=== PATIENT | male | born 1940 | race Caucasian/White ===

== ENCOUNTER → 2016-07-21 | Outpatient (CLI) | payer MEDICARE ==
[2016-07-21 14:26] LABS: CH 30.9; HCT 33.6 % (39.0-53.0); HDW 2.47; HGB 10.4 gm/dL (13.0-17.5); MCH 30.2 pg (25.0-35.0); MCHC 31.1 g/dL (31.0-37.0); MCV 97.1 fL (80.0-100.0); Mean Platelet Volume 7.6; RBC 3.46 m/uL (4.30-5.90); RDW 14.3 % (11.5-15.5); WBC 7.1 k/uL (3.8-10.6)
[2016-07-21 14:35] LABS: Prothrombin Time 9.9 sec (9.0-12.0)
[2016-07-21 14:40] LABS: Calcium 9.2 mg/dL (8.4-10.2)
== END | disposition home or self-care (01) ==
LOC: LABWHC1 13:24
PROVIDERS: ATTEND Nurse Practitioner Acute Care
DX: Z01.812 Encounter for preprocedural laboratory examination (principal)
CPT/HCPCS: 36415; 80048; 85027; 85610

== ENCOUNTER 2016-11-05 13:59 | Observation (INO) | payer MEDICARE ==
[2016-11-05] MEDS ORDERED: ONDANSETRON 4 MG/2 ML VIAL IVP STA (15:45)
[2016-11-05] MEDS ORDERED: RX INFO: IV CONTRAST WAS GIVEN 1 EACH MISC MISCELLANE PRN (15:45)
[2016-11-05] MEDS ORDERED: SODIUM CHLORIDE 0.9% 1,000 ML IV ONE (15:45)
--- NOTE | 2016-11-05 15:48 | ED ---
General Adult HPI - General Chief complaint: Abdominal Pain Stated complaint: Weakness /Tired Time Seen by Provider: 11/05/16 15:35 Source: patient, family, RN notes reviewed Mode of arrival: wheelchair Limitations: no limitations - History of Present Illness Initial comments: 76-year-old male history of hypertension and diabetes presenting for abdominal pain and nausea. Patient states symptoms began about 4 days ago. He states he felt ill during the day initially with 4 episodes of vomiting at that time. He states over the past 3 days felt some intermittent nausea but no vomiting. He has had some persistent upper abdominal pain. He does state history of colitis many years ago. He denies any significant abdominal surgeries. He denies any change in bowel movements. He denies any fevers or chills. He denies any chest pain or shortness breath. He denies any urinary symptoms, dysuria, hematuria. He does state that symptoms were improved after taking Tylenol yesterday and today. - Related Data Home Medications Medication Instructions Recorded Confirmed Atenolol [Tenormin] 25 mg PO DAILY 08/04/14 11/05/16 Furosemide [Lasix] 80 mg PO DAILY 08/04/14 11/05/16 Insulin NPH Human Isophane 20 unit SQ W/BRKFST 08/04/14 11/05/16 [NovoLIN N] Insulin Regular, Human [NovoLIN R] See Protocol SQ BID 08/04/14 11/05/16 Levothyroxine Sodium [Synthroid] 100 mcg PO DAILY 08/04/14 11/05/16 Lisinopril [Prinivil] 10 mg PO DAILY 08/04/14 11/05/16 Potassium Chloride [Klor-Con 20] 20 meq PO DAILY 08/04/14 11/05/16 Ranitidine HCl 150 mg PO DAILY 08/04/14 11/05/16 glipiZIDE [Glucotrol XL] 5 mg PO DAILY 08/04/14 11/05/16 Albuterol Inhaler [Ventolin 1 - 2 puff INHALATION RT-Q4H PRN 11/05/16 11/05/16 Inhaler] Albuterol Nebulized [Ventolin 2.5 mg INHALATION RT-QID PRN 11/05/16 11/05/16 Nebulized] Insulin NPH Human Isophane 10 unit SQ W/SUPPER 11/05/16 11/05/16 [Humulin N] Ipratropium Nebulized [Atrovent 0.5 mg INHALATION RT-QID PRN 11/05/16 11/05/16 Nebulized] Verapamil HCl [Verapamil ER] 240 mg PO DAILY 11/05/16 11/05/16 Allergies Allergy/AdvReac Type Severity Reaction Status Date / Time No Known Allergies Allergy Verified 11/05/16 14:13 Review of Systems ROS Statement: Those systems with pertinent positive or pertinent negative responses have been documented in the HPI. ROS Other: All systems not noted in ROS Statement are negative. Past Medical History Past Medical History: Asthma, Diabetes Mellitus, Hypertension, Thyroid Disorder Additional Past Medical History / Comment(s): lymphoma, chemotherapy, radiation , colitis History of Any Multi-Drug Resistant Organisms: None Reported Past Surgical History: Coronary Bypass/CABG, Orthopedic Surgery, Pacemaker Additional Past Surgical History / Comment(s): ankle - plate. sinus surgery s/ t cancer Type of Cardiac Device: Permanent Pacemaker Device Placement Date:: 2001 Past Psychological History: No Psychological Hx Reported Smoking Status: Former smoker Past Alcohol Use History: None Reported Past Drug Use History: None Reported - Past Family History Father Family Medical History: No Reported History Mother Family Medical History: No Reported History General Exam - General Exam Comments Initial Comments: General: Awake and Alert. No acute distress. Does not appear acutely ill. Obese. Eyes: RIVERA, EOM intact. No nystagmus. No scleral icterus. HENT: Atraumatic, normocephalic. Mucous membranes moist. Trachea midline. Neck: The neck is supple, there is no tenderness or JVD. Cardiovascular: Regular rate and rhythm. No murmur, rub, or gallop is appreciated. Distal pulses intact. Respiratory: Lungs are clear to auscultation bilaterally. No wheezes, rales, rhonchi. No respiratory distress. Gastrointestinal: Soft, with mild diffuse tenderness. No rebound or guarding. Non-distended. No masses or organomegaly noted. No CVA tenderness. Musculoskeletal: No tenderness. Normal ROM. No gross deformity. No strength deficits. Neurological: A&Ox3. CN II-XII 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, There are no obvious motor or sensory deficits. Coordination appears 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. Speech is normal. Skin: Skin is warm and dry and no rashes or lesions are noted. Psychiatric: Cooperative, appropriate mood & affect, normal judgment. Limitations: no limitations Course Vital Signs 11/05/16 11/05/16 11/05/16 14:09 19:06 20:00 Temperature 96.6 F L 97.0 F L 97.4 F L Pulse Rate 65 85 60 Respiratory 20 17 16 Rate Blood Pressure 104/52 114/57 112/62 O2 Sat by Pulse 95 96 98 Oximetry EKG Findings - EKG Comments: EKG Findings:: EKG 16:21. AV dual-chamber paced rhythm. Rate 60. Nonspecific EKG. Similar prior EKG 08/04/2014. Medical Decision Making - Medical Decision Making 76-year-old male presenting for abdominal pain and nausea. Lab workup and imaging ordered. IV fluids started. Patient declines pain medication. Labs with stable CBC. BMP with evidence of Chronic Renal Failure. CT abdomen and pelvis with evidence of obstructed right ureteral stone with associated hydronephrosis. The setting of his acute renal failure, plan for admission for further monitoring and neurological evaluation. Patient updated on results and imaging. Discussed plan for admission for IV fluids, repeat lab work, and urology evaluation. Pt agreeable with plan for admission. I spoke with Dr. Thompson, agrees with admission. Requests consult to Urology. Requests urine culture and Flomax BID. - Lab Data Result diagrams: 11/05/16 17:35 11/05/16 17:35 Lab Results 11/05/16 11/05/16 11/05/16 Range/Units 17:05 17:35 17:35 WBC 8.9 (3.8-10.6) k/uL RBC 3.56 L (4.30-5.90) m/uL Hgb 11.1 L (13.0-17.5) gm/dL Hct 33.9 L (39.0-53.0) % MCV 95.3 (80.0-100.0) fL MCH 31.1 (25.0-35.0) pg MCHC 32.6 (31.0-37.0) g/dL RDW 14.3 (11.5-15.5) % Plt Count 152 (150-450) k/uL Neutrophils % 66 % Lymphocytes % 23 % Monocytes % 6 % Eosinophils % 3 % Basophils % 0 % Neutrophils # 5.9 (1.3-7.7) k/uL Lymphocytes # 2.0 (1.0-4.8) k/uL Monocytes # 0.6 (0-1.0) k/uL Eosinophils # 0.3 (0-0.7) k/uL Basophils # 0.0 (0-0.2) k/uL Sodium 137 (137-145) mmol/L Potassium 4.8 (3.5-5.1) mmol/L Chloride 103 (98-107) mmol/L Carbon Dioxide 25 (22-30) mmol/L Anion Gap 9 mmol/L BUN 44 H (9-20) mg/dL Creatinine 2.25 H (0.66-1.25) mg/dL Est GFR (MDRD) Af Amer 35 (>60 ml/min/1.73 sqM) Est GFR (MDRD) Non-Af 29 (>60 ml/min/1.73 sqM) Glucose 116 H (74-99) mg/dL POC Glucose (mg/dL) 165 H (75-99) mg/dL POC Glu [employer] ID Hina Molina Calcium 8.7 (8.4-10.2) mg/dL Magnesium 2.4 H (1.6-2.3) mg/dL Total Bilirubin 0.8 (0.2-1.3) mg/dL AST 31 (17-59) U/L ALT 17 L (21-72) U/L Alkaline Phosphatase 72 (38-126) U/L Total Protein 7.3 (6.3-8.2) g/dL Albumin 3.8 (3.5-5.0) g/dL Lipase 70 (23-300) U/L - EKG Data -: EKG Interpreted by Me Rate: normal When compared to previous EKG there are: no significant change Interpretation: no acute changes - Radiology Data Radiology results: report reviewed, image reviewed Disposition Clinical Impression: Acute on chronic renal failure, Hydronephrosis with renal and ureteral calculous obstruction, Abdominal pain Disposition: ADMITTED IP TO [facility] Decision to Admit Reason: Admit from [facility]
[2016-11-05 17:09] LABS: Glucose,Whole Blood 165 mg/dL (75-99)
[2016-11-05 17:52] LABS: Basophils % (A) 0 %; CH 31.3; CHCM 32.9; Eosinophils # (A) 0.3 k/uL (0-0.7); Eosinophils % (A) 3 %; HCT 33.9 % (39.0-53.0); HDW 2.33; HGB 11.1 gm/dL (13.0-17.5); Luc # (Auto) 0.15; Luc % (Auto) 2; Lymphocytes % (A) 23 %; MCH 31.1 pg (25.0-35.0); MCHC 32.6 g/dL (31.0-37.0); MCV 95.3 fL (80.0-100.0); Mean Platelet Volume 7.2; Monocytes # (A) 0.6 k/uL (0-1.0); Monocytes % (A) 6 %; Neutrophils # (A) 5.9 k/uL (1.3-7.7); Neutrophils % (A) 66 %; RBC 3.56 m/uL (4.30-5.90); RDW 14.3 % (11.5-15.5); WBC 8.9 k/uL (3.8-10.6); WBC (Perox) 9.34
[2016-11-05 18:06] LABS: Calcium 8.7 mg/dL (8.4-10.2); Magnesium 2.4 mg/dL (1.6-2.3); Total Bilirubin 0.8 mg/dL (0.2-1.3); Total Protein 7.3 g/dL (6.3-8.2)
[2016-11-05 18:07] LABS: Potassium 4.8 mmol/L (3.5-5.1)
--- NOTE | 2016-11-05 18:47 | CT ---
EXAMINATION TYPE: CT abdomen pelvis wo con DATE OF EXAM: 11/05/2016 COMPARISON: NONE HISTORY: Pelvic bloating and pain CT DLP: 899.7 mGycm Automated exposure control for dose reduction was used. TECHNIQUE: Helical acquisition of images was performed from the lung bases through the pelvis. FINDINGS: Lung bases show mild atelectasis in the right lower lobe. There is no pleural effusion. There is mild focal 1.5 cm area of pleural thickening in the medial posterior right lung base. There is no pleural effusion. Liver and spleen appear normal. There is no sign of a pancreatic mass. Gallbladder appears normal. Th ere is atherosclerotic vascular calcification. There is no adrenal mass. There is right-sided hydronephrosis and hydroureter. There appears to be a 4 mm calculus in the distal right ureter near the urinary bladder. There is a 4.5 cm cortical cyst on the lower pole right kidney. There are other smaller right renal cortical cysts. The left kidney bijal ws a few calcification. Some of these could be vascular calcifications. There are vascular calcificat ions on the right side. The right kidney also shows a 4 mm calculus in the interpolar kidney. There i s no retroperitoneal adenopathy. Abdominal aorta is atheromatous. There is mild right side perinephri c fat stranding. I see no intestinal wall thickening. There are no dilated loops. There is no sign of a bowel obstruct ion. Bladder distends smoothly. I see no bony destructive process. There is spondylolysis of L5 with a minimal first-degree L5-S1 spondylolisthesis. There is narrowing and sclerosis at the L3-4 disc. IMPRESSION: BILATERAL RENAL CALCULI. OBSTRUCTING SMALL CALCULUS IN THE DISTAL RIGHT URETER WITH RIGHT-SIDED HYDRO NEPHROSIS AND HYDROURETER. ATHEROSCLEROTIC VASCULAR DISEASE. RIGHT RENAL CORTICAL CYSTS. 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 PATCHY PLEURAL REACTION AND ATEL ECTASIS AT THE RIGHT POSTERIOR LUNG BASE.
[2016-11-05] MEDS ORDERED: MORPHINE SULFATE 4 MG/ML SYRINGE IV PRN (19:29)
[2016-11-05] MEDS ORDERED: NALOXONE 0.4 MG/ML 1 ML VIAL IV PRN (19:29)
[2016-11-05] MEDS ORDERED: ONDANSETRON 4 MG/2 ML VIAL IVP PRN (19:29)
[2016-11-05] MEDS ORDERED: ACETAMINOPHEN TAB 325 MG TAB PO PRN (19:29)
[2016-11-05] MEDS ORDERED: HYDROcodone/APAP 5-325MG 1 EACH TAB PO PRN (19:29)
[2016-11-05] MEDS ORDERED: LACTATED RINGERS 1,000 ML IV SCH (19:30)
[2016-11-05] MEDS: SODIUM CHLORIDE 0.9% 1,000 ML IV SCH (20:00)
[2016-11-05] MEDS ORDERED: IPRATROPIUM 0.5 MG/2.5 ML NEBU INHALATION PRN (20:46)
[2016-11-05] MEDS ORDERED: ALBUTEROL NEBULIZED 2.5 MG/3 ML INHALATION PRN ×2 (20:46)
[2016-11-05] MEDS ORDERED: ALBUTEROL NEB (CONC) 2.5 MG/0.5 ML INHALATION PRN (21:04)
[2016-11-05] MEDS: TAMSULOSIN 0.4 MG CAP.ER.24H PO SCH (21:33)
[2016-11-05] MEDS: HEPARIN SODIUM,PORCINE 5,000 UNIT/ML 1 ML VIAL SQ SCH (21:33)
[2016-11-05 22:00] VITALS: BMI 30.1
[2016-11-05 23:39] VITALS: RESP 16
[2016-11-06 02:12] LABS: Glucose,Whole Blood 132 mg/dL (75-99)
[2016-11-06 02:27] LABS: Appearance,Urine Clear (Clear); Bilirubin,Urine Negative (Negative); Glucose,Urine (UA) Negative (Negative); Ketones,Urine Negative (Negative); Leukocyte Esterase,Urine Negative (Negative); Nitrite,Urine Negative (Negative); Particle Count 173; Protein,Urine Negative (Negative); RBC,Urine 2 /hpf (0-5); Specific Gravity,Urine 1.008 (1.001-1.035); UA Billing (MACRO vs. MICRO) MICRO; Urobilinogen,Urine <2.0 mg/dL (<2.0); WBC,Urine <1 /hpf (0-5)
[2016-11-06] MEDS: SODIUM CHLORIDE 0.9% 1,000 ML IV SCH (06:12)
[2016-11-06] MEDS ORDERED: LEVOTHYROXINE 100 MCG TAB PO SCH (06:30)
--- NOTE | 2016-11-06 06:58 | P.GSCN ---
History of Present Illness Consult date: 11/06/16 Reason for Consult: Ureteral calculus right History of present illness: The patient is a pleasant 76-year-old gentleman who presented to the emergency room yesterday with a weeklong history of intermittent pain nausea and vomiting. He was evaluated in the emergency room including a CAT scan which identified right sided hydronephrosis due to a 3-4 mm distal ureteral stone. This is the patient's first stone. He has bilateral tiny stones. He is comfortable this morning. He has not had blood fever or chills. Review of Systems - Constitutional Reports as per HPI - Genitourinary Reports as per HPI - Endocrine Endocrine Comment(s): Diabetes Past Medical History Past Medical History: Asthma, Diabetes Mellitus, Hypertension, Thyroid Disorder Additional Past Medical History / Comment(s): lymphoma, chemotherapy, radiation , colitis History of Any Multi-Drug Resistant Organisms: None Reported Past Surgical History: Coronary Bypass/CABG, Orthopedic Surgery, Pacemaker Additional Past Surgical History / Comment(s): ankle - plate. sinus surgery s/ t cancer Type of Cardiac Device: Permanent Pacemaker Device Placement Date:: 2001 Past Psychological History: No Psychological Hx Reported Smoking Status: Former smoker Past Alcohol Use History: None Reported Past Drug Use History: None Reported - Past Family History Father Family Medical History: No Reported History Additional Family Medical History / Comment(s): CABG Mother Family Medical History: No Reported History Medications and Allergies Home Medications Medication Instructions Recorded Confirmed Type Atenolol [Tenormin] 25 mg PO DAILY 08/04/14 11/05/16 History Furosemide [Lasix] 80 mg PO DAILY 08/04/14 11/05/16 History Insulin NPH Human Isophane 20 unit SQ W/BRKFST 08/04/14 11/05/16 History [NovoLIN N] Insulin Regular, Human [NovoLIN R] See Protocol SQ BID 08/04/14 11/05/16 History Levothyroxine Sodium [Synthroid] 100 mcg PO DAILY 08/04/14 11/05/16 History Lisinopril [Prinivil] 10 mg PO DAILY 08/04/14 11/05/16 History Potassium Chloride [Klor-Con 20] 20 meq PO DAILY 08/04/14 11/05/16 History Ranitidine HCl 150 mg PO DAILY 08/04/14 11/05/16 History glipiZIDE [Glucotrol XL] 5 mg PO DAILY 08/04/14 11/05/16 History Albuterol Inhaler [Ventolin 1 - 2 puff INHALATION RT-Q4H PRN 11/05/16 11/05/16 History Inhaler] Albuterol Nebulized [Ventolin 2.5 mg INHALATION RT-QID PRN 11/05/16 11/05/16 History Nebulized] Insulin NPH Human Isophane 10 unit SQ W/SUPPER 11/05/16 11/05/16 History [Humulin N] Ipratropium Nebulized [Atrovent 0.5 mg INHALATION RT-QID PRN 11/05/16 11/05/16 History Nebulized] Verapamil HCl [Verapamil ER] 240 mg PO DAILY 11/05/16 11/05/16 History Allergies Allergy/AdvReac Type Severity Reaction Status Date / Time No Known Allergies Allergy Verified 11/05/16 14:13 Surgical - Exam Vital Signs Temp Pulse Resp BP Pulse Ox 96.6 F L 65 20 104/52 95 11/05/16 14:09 11/05/16 14:09 11/05/16 14:09 11/05/16 14:09 11/05/16 14:09 - General well developed, well nourished, no distress - Eyes PERRL - ENT no hearing loss - Neck trachea midline - Respiratory normal expansion - Cardiovascular Rhythm: regular - Abdomen Abdomen: soft, non tender - Genitourinary normal penis with no external lesions, testicles present - Integumentary no rash, no growths - Musculoskeletal normal posture - Psychiatric oriented to time, oriented to person, oriented to place, speech is normal, memory intact Results - Labs 11/05/16 17:35 11/05/16 17:35 Abnormal Lab Results - Last 24 Hours (Table) 11/05/16 11/05/16 11/05/16 Range/Units 17:05 17:35 17:35 RBC 3.56 L (4.30-5.90) m/uL Hgb 11.1 L (13.0-17.5) gm/dL Hct 33.9 L (39.0-53.0) % BUN 44 H (9-20) mg/dL Creatinine 2.25 H (0.66-1.25) mg/dL Glucose 116 H (74-99) mg/dL POC Glucose (mg/dL) 165 H (75-99) mg/dL Magnesium 2.4 H (1.6-2.3) mg/dL ALT 17 L (21-72) U/L Urine Blood (Negative) Hyaline Casts (0-2) /lpf 11/06/16 11/06/16 Range/Units 02:04 02:05 RBC (4.30-5.90) m/uL Hgb (13.0-17.5) gm/dL Hct (39.0-53.0) % BUN (9-20) mg/dL Creatinine (0.66-1.25) mg/dL Glucose (74-99) mg/dL POC Glucose (mg/dL) 132 H (75-99) mg/dL Magnesium (1.6-2.3) mg/dL ALT (21-72) U/L Urine Blood Trace H (Negative) Hyaline Casts 3 H (0-2) /lpf Diabetes panel 11/05/16 Range/Units 17:35 Sodium 137 (137-145) mmol/L Potassium 4.8 (3.5-5.1) mmol/L Chloride 103 (98-107) mmol/L Carbon Dioxide 25 (22-30) mmol/L BUN 44 H (9-20) mg/dL Creatinine 2.25 H (0.66-1.25) mg/dL Glucose 116 H (74-99) mg/dL Calcium 8.7 (8.4-10.2) mg/dL AST 31 (17-59) U/L ALT 17 L (21-72) U/L Alkaline Phosphatase 72 (38-126) U/L Total Protein 7.3 (6.3-8.2) g/dL Albumin 3.8 (3.5-5.0) g/dL Calcium panel 11/05/16 Range/Units 17:35 Calcium 8.7 (8.4-10.2) mg/dL Albumin 3.8 (3.5-5.0) g/dL Pituitary panel 11/05/16 Range/Units 17:35 Sodium 137 (137-145) mmol/L Potassium 4.8 (3.5-5.1) mmol/L Chloride 103 (98-107) mmol/L Carbon Dioxide 25 (22-30) mmol/L BUN 44 H (9-20) mg/dL Creatinine 2.25 H (0.66-1.25) mg/dL Glucose 116 H (74-99) mg/dL Calcium 8.7 (8.4-10.2) mg/dL Adrenal panel 11/05/16 Range/Units 17:35 Sodium 137 (137-145) mmol/L Potassium 4.8 (3.5-5.1) mmol/L Chloride 103 (98-107) mmol/L Carbon Dioxide 25 (22-30) mmol/L BUN 44 H (9-20) mg/dL Creatinine 2.25 H (0.66-1.25) mg/dL Glucose 116 H (74-99) mg/dL Calcium 8.7 (8.4-10.2) mg/dL Total Bilirubin 0.8 (0.2-1.3) mg/dL AST 31 (17-59) U/L ALT 17 L (21-72) U/L Alkaline Phosphatase 72 (38-126) U/L Total Protein 7.3 (6.3-8.2) g/dL Albumin 3.8 (3.5-5.0) g/dL Assessment and Plan Plan: Impression: Right ureteral calculus with obstruction and discomfort controlled. Long-standing insulin-dependent diabetes, hypertension Recommendations. This patient is comfortable this morning and states he has not had any pain medicine since yesterday. Since he has no fever or chills and he is comfortable spontaneous passage is an option. His creatinine is mildly elevated which is probably both acute and chronic. I don't think at this point in time that is enough indication to intervene if he wishes to spontaneously pass this which appears to. I recommend feeding him today and see how he does as the day progresses. If he has no pain I would be willing to give him a week to 10 days to pass it spontaneously. His urine does not look infected.
[2016-11-06 07:17] LABS: Glucose,Whole Blood 116 mg/dL (75-99)
[2016-11-06] MEDS ORDERED: INSULIN NPH 300 UNIT/3 ML VIAL SQ SCH ×2 (07:30→17:30)
[2016-11-06] MEDS: INSULIN LISPRO (humaLOG) 300 UNIT/3 ML VIAL SQ SCH ×2 (07:30→13:04)
[2016-11-06 07:34] VITALS: BP 136/63; TEMP 97.8
[2016-11-06 08:09] LABS: Basophils % (A) 0 %; CH 31.1; CHCM 32.6; Eosinophils # (A) 0.2 k/uL (0-0.7); Eosinophils % (A) 3 %; HCT 31.2 % (39.0-53.0); HDW 2.29; Luc # (Auto) 0.15; Luc % (Auto) 2; Lymphocytes # (A) 1.7 k/uL (1.0-4.8); Lymphocytes % (A) 21 %; MCH 30.7 pg (25.0-35.0); MCHC 32.1 g/dL (31.0-37.0); MCV 95.7 fL (80.0-100.0); Mean Platelet Volume 7.4; Monocytes # (A) 0.4 k/uL (0-1.0); Monocytes % (A) 6 %; Neutrophils # (A) 5.4 k/uL (1.3-7.7); Neutrophils % (A) 68 %; RBC 3.26 m/uL (4.30-5.90); RDW 14.4 % (11.5-15.5); WBC 7.8 k/uL (3.8-10.6); WBC (Perox) 8.04
[2016-11-06 08:18] LABS: Prothrombin Time 9.9 sec (9.0-12.0)
[2016-11-06 08:30] LABS: Calcium 8.2 mg/dL (8.4-10.2); Magnesium 2.3 mg/dL (1.6-2.3); Phosphorous 4.2 mg/dL (2.5-4.5); Potassium 4.2 mmol/L (3.5-5.1)
[2016-11-06] MEDS ORDERED: FUROSEMIDE 80 MG TAB PO SCH (09:00)
[2016-11-06] MEDS ORDERED: ATENOLOL 25 MG TAB PO SCH (09:00)
[2016-11-06] MEDS ORDERED: POTASSIUM CHLORIDE ER 20 MEQ TAB.ER PO SCH (09:00)
[2016-11-06] MEDS ORDERED: FAMOTIDINE 20 MG TAB PO SCH (09:00)
[2016-11-06] MEDS ORDERED: VERAPAMIL SR 240 MG TABLET.ER PO SCH (09:00)
[2016-11-06] MEDS ORDERED: LISINOPRIL 10 MG TAB PO SCH (09:00)
[2016-11-06] MEDS: TAMSULOSIN 0.4 MG CAP.ER.24H PO SCH (09:13)
[2016-11-06] MEDS: HEPARIN SODIUM,PORCINE 5,000 UNIT/ML 1 ML VIAL SQ SCH (09:13)
[2016-11-06 10:14] LABS: Glucose,Whole Blood 149 mg/dL (75-99)
[2016-11-06 11:39] LABS: Glucose,Whole Blood 161 mg/dL (75-99)
--- NOTE | 2016-11-06 15:00 | P.HPIM ---
History of Present Illness H&P Date: 11/06/16 Chief Complaint: Back pain and abdominal pain HISTORY AND PHYSICAL AND DISCHARGE SUMMARY: This is a 76-year-old male patient of Dr. Samuel Venegas with a past medical history for asthma, diabetes mellitus type 2, hypertension, hypothyroidism, lymphoma status post chemotherapy and radiation therapy, colitis. Patient states he had sudden onset of back pain and soreness to his back and abdomen that started on Thursday. He also had nausea and vomiting and after he vomited he felt better. He denies any history of kidney stones. He does drink well water and milk daily. Patient came into [facility] emergency center. His white count was normal, hemoglobin 11.1. BUN was 44 and creatinine 2.25. Patient does not have any history of chronic kidney disease that he is aware of. CAT scan of the abdomen and pelvis without contrast revealed bilateral renal calculi obstructing small calculus in the distal right ureter with right-sided hydronephrosis and hydroureter. Patient was placed on the [facility] floor and seen in consultation by Dr. Márquez with recommendations patient will pass the stone on his own up to 10 days. At the time of evaluation, patient's pain was well-controlled and he is willing to go home today in stable condition. Patient has been instructed to strain all his urine to obtain stone for analysis. Repeat BUN was 40 and creatinine 2.31. Review of Systems All systems: negative Constitutional: Denies chills, Denies fever Eyes: denies blurred vision, denies pain Ears, nose, mouth and throat: Denies headache, Denies sore throat Cardiovascular: Denies chest pain, Denies shortness of breath Respiratory: Denies cough Gastrointestinal: Reports abdominal pain, Denies diarrhea, Denies nausea, Denies vomiting Musculoskeletal: Denies myalgias Integumentary: Denies pruritus, Denies rash Neurological: Denies numbness, Denies weakness Psychiatric: Denies anxiety, Denies depression Endocrine: Denies fatigue, Denies weight change Past Medical History Past Medical History: Asthma, Diabetes Mellitus, Hypertension, Thyroid Disorder Additional Past Medical History / Comment(s): lymphoma, chemotherapy, radiation , colitis History of Any Multi-Drug Resistant Organisms: None Reported Past Surgical History: Coronary Bypass/CABG, Orthopedic Surgery, Pacemaker Additional Past Surgical History / Comment(s): ankle - plate. sinus surgery s/ t cancer Type of Cardiac Device: Permanent Pacemaker Device Placement Date:: 2001 Past Psychological History: No Psychological Hx Reported Smoking Status: Former smoker Past Alcohol Use History: None Reported Additional Past Alcohol Use History / Comment(s): Patient quit smoking in 1967. He denies any medical marijuana, marijuana, street drug or alcohol use. Past Drug Use History: None Reported - Past Family History Father Family Medical History: No Reported History Additional Family Medical History / Comment(s): Father at age 72 with history of coronary artery disease and CABG Mother Family Medical History: No Reported History Additional Family Medical History / Comment(s): Mother at age 93 with history of coronary artery disease. Brother(s) Additional Family Medical History / Comment(s): Patient has 3 brothers and one has history of coronary artery disease. Sister(s) Additional Family Medical History / Comment(s): Patient has one sister with history of SVT. Son(s) Additional Family Medical History / Comment(s): Patient has 2 sons and one has history of kidney stones. Patient does not have any daughters. Patient has a grandson treated for SVT. Medications and Allergies Home Medications Medication Instructions Recorded Confirmed Type Atenolol [Tenormin] 25 mg PO DAILY 08/04/14 11/05/16 History Furosemide [Lasix] 80 mg PO DAILY 08/04/14 11/05/16 History Insulin NPH Human Isophane 20 unit SQ W/BRKFST 08/04/14 11/05/16 History [NovoLIN N] Insulin Regular, Human [NovoLIN R] See Protocol SQ BID 08/04/14 11/05/16 History Levothyroxine Sodium [Synthroid] 100 mcg PO DAILY 08/04/14 11/05/16 History Lisinopril [Prinivil] 10 mg PO DAILY 08/04/14 11/05/16 History Potassium Chloride [Klor-Con 20] 20 meq PO DAILY 08/04/14 11/05/16 History Ranitidine HCl 150 mg PO DAILY 08/04/14 11/05/16 History glipiZIDE [Glucotrol XL] 5 mg PO DAILY 08/04/14 11/05/16 History Albuterol Inhaler [Ventolin Hfa 1 - 2 puff INHALATION RT-Q4H PRN 11/05/16 History Inhaler] Albuterol Nebulized [Ventolin 2.5 mg INHALATION RT-QID PRN 11/05/16 11/05/16 History Nebulized] Insulin NPH Human Isophane 10 unit SQ W/SUPPER 11/05/16 11/05/16 History [Humulin N] Ipratropium Nebulized [Atrovent 0.5 mg INHALATION RT-QID PRN 11/05/16 11/05/16 History Nebulized] Verapamil HCl [Verapamil ER] 240 mg PO DAILY 11/05/16 11/05/16 History Allergies Allergy/AdvReac Type Severity Reaction Status Date / Time No Known Allergies Allergy Verified 11/05/16 14:13 Physical Exam Vitals: Vital Signs Temp Pulse Pulse Resp BP BP Pulse Ox 11/06/16 08:00 60 16 11/06/16 07:00 97.8 F 60 16 136/63 95 11/05/16 23:00 97.7 F 60 16 117/58 97 11/05/16 20:47 97.7 F 60 17 111/58 97 11/05/16 20:00 97.4 F L 60 16 112/62 98 11/05/16 19:06 97.0 F L 85 17 114/57 96 11/05/16 14:09 96.6 F L 65 20 104/52 95 Intake and Output 11/05/16 11/06/16 11/06/16 22:59 06:59 14:59 Intake Total 300 800 Output Total 325 Balance 300 475 Intake: Intake, IV Titration 300 800 Amount Lactated Ringers 1,000 ml 800 @ 100 mls/hr IV .Q10H MELISA Rx#:[id number] Sodium Chloride 0.9% 1, 300 000 ml @ 100 mls/hr IV . Q10H MELISA Rx#:[id number] Output: Urine 325 Other: Voiding Method Toilet Toilet Urinal Urinal # Voids 1 2 Weight 98 kg Gen: This is a 76-year-old male. He is lying in bed and appears to be in no acute distress. HEENT: Head is atraumatic, normocephalic. Pupils equal, round. Sclerae is anicteric. NECK: Supple. No JVD. No lymphadenopathy. No thyromegaly. LUNGS: Clear to auscultation. No wheezes or rhonchi. No intercostal retractions. HEART: Regular rate and rhythm. No murmur. ABDOMEN: Soft. Bowel sounds are present. No masses. No tenderness. EXTREMITIES: No pedal edema. No calf tenderness. NEUROLOGICAL: Patient is awake, alert and oriented x3. Cranial nerves 2 through 12 are 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. Results CBC & Chem 7: 11/06/16 07:46 11/06/16 07:46 Labs: Abnormal Lab Results - Last 24 Hours (Table) 11/05/16 11/05/16 11/05/16 Range/Units 17:05 17:35 17:35 RBC 3.56 L (4.30-5.90) m/uL Hgb 11.1 L (13.0-17.5) gm/dL Hct 33.9 L (39.0-53.0) % BUN 44 H (9-20) mg/dL Creatinine 2.25 H (0.66-1.25) mg/dL Glucose 116 H (74-99) mg/dL POC Glucose (mg/dL) 165 H (75-99) mg/dL Calcium (8.4-10.2) mg/dL Magnesium 2.4 H (1.6-2.3) mg/dL ALT 17 L (21-72) U/L Urine Blood (Negative) Hyaline Casts (0-2) /lpf 11/06/16 11/06/16 11/06/16 Range/Units 02:04 02:05 07:16 RBC (4.30-5.90) m/uL Hgb (13.0-17.5) gm/dL Hct (39.0-53.0) % BUN (9-20) mg/dL Creatinine (0.66-1.25) mg/dL Glucose (74-99) mg/dL POC Glucose (mg/dL) 132 H 116 H (75-99) mg/dL Calcium (8.4-10.2) mg/dL Magnesium (1.6-2.3) mg/dL ALT (21-72) U/L Urine Blood Trace H (Negative) Hyaline Casts 3 H (0-2) /lpf 11/06/16 11/06/16 11/06/16 Range/Units 07:46 07:46 10:13 RBC 3.26 L (4.30-5.90) m/uL Hgb 10.0 L (13.0-17.5) gm/dL Hct 31.2 L (39.0-53.0) % BUN 40 H (9-20) mg/dL Creatinine 2.31 H (0.66-1.25) mg/dL Glucose 113 H (74-99) mg/dL POC Glucose (mg/dL) 149 H (75-99) mg/dL Calcium 8.2 L (8.4-10.2) mg/dL Magnesium (1.6-2.3) mg/dL ALT (21-72) U/L Urine Blood (Negative) Hyaline Casts (0-2) /lpf Microbiology - Last 24 Hours (Table) 11/06/16 02:05 Urine Culture - Preliminary Urine,Voided Thrombosis Risk Factor Assmnt - DVT/VTE Prophylaxis DVT/VTE Prophylaxis: Mechanical Prophylaxis ordered - Choose All That Apply Any of the Below Risk Factors Present?: Yes Each Factor Represents 1 point: Abnormal pulmonary function (COPD), Obesity ( BMI >25) Other Risk Factors: Yes Each Risk Factor Represents 3 Points: Age 75 years or older Other congenital or acquired thrombophilia - If yes, enter type in comment: No Thrombosis Risk Factor Assessment Total Risk Factor Score: 5 Thrombosis Risk Factor Assessment Level: High Risk Assessment and Plan Plan: 1. Back and abdominal pain secondary to kidney stone. Consult with Dr. Márquez appreciated. Patient to strain all urine, avoid Tums, limit milk products. 2. Acute kidney injury secondary to hydronephrosis. Patient has been evaluated by Dr. Márquez. Patient have outpatient follow-up. 3. Diabetes mellitus type 2 on glipizide and insulin. 4. Hypertension. Continue atenolol, lisinopril, verapamil. 5. Mild intermittent asthma. Continue nebulizer treatments as needed. 6. Gastroesophageal reflux disease. Continue ranitidine. 7. Hypothyroidism continue Synthroid. 8. History of lymphoma, stable. Patient placed on the observation unit. Discharge plan: Retun home Impression and plan of care have been directed as dictated by the signing physician. Radha Loco nurse practitioner acting as scribe for signing physician.
[2016-11-06 16:30] VITALS: PULSE 60
== END 2016-11-06 16:33 | disposition home or self-care (01) ==
LOC: EC 13:59 → 5MS5E 19:29
PROVIDERS: ADMIT Family Medicine; ATTEND Family Medicine
DX: N13.2 Hydronephrosis with renal and ureteral calculous obstruction (principal); N17.9 Acute kidney failure, unspecified; N18.9 Chronic kidney disease, unspecified; N13.4 Hydroureter; I12.9 Hypertensive chronic kidney disease with stage 1 through stage 4 chronic kidney disease, or unspecified chronic kidney disease; E11.22 Type 2 diabetes mellitus with diabetic chronic kidney disease; J45.20 Mild intermittent asthma, uncomplicated; K21.9 Gastro-esophageal reflux disease without esophagitis; E03.9 Hypothyroidism, unspecified; Z79.899 Other long term (current) drug therapy; Z79.4 Long term (current) use of insulin; Z79.84 Long term (current) use of oral hypoglycemic drugs; Z87.891 Personal history of nicotine dependence; Z95.1 Presence of aortocoronary bypass graft; Z85.72 Personal history of non-Hodgkin lymphomas; Z82.49 Family history of ischemic heart disease and other diseases of the circulatory system; Z92.21 Personal history of antineoplastic chemotherapy; Z92.3 Personal history of irradiation
CPT/HCPCS: 99285; 96374; 96361 ×3; 96376; 96375; 36415; 94640; 93005; 80053; 80048; 83690; 83735 ×2; 84100; 85025 ×2; 85610; 81001; 87086; 74176; G0378 ×2; J1644 ×2; J2405

== ENCOUNTER → 2016-11-18 | Outpatient (CLI) | payer MEDICARE ==
--- NOTE | 2016-11-18 15:13 | XR ---
EXAMINATION TYPE: XR KUB DATE OF EXAM ORDERED: 11/18/2016 HISTORY: N20.1 Right ureteral stone. COMPARISON: Previous study dated 02/25/2011 as well as a CT scan of the abdomen and pelvis dated 2016. FINDINGS: There is a very questionable, 3 mm punctate calcification overlying the left renal outline . No other definite renal calcifications are seen. There is another questionable 4 mm calculus adjace nt to the L1-2 disc level. This appears to either representing ureteric calculus. There are multiple phleboliths and other vascular calcifications within the pelvis it would be difficult to exclude a di stal ureteric calculus, especially on the right. The abdominal gas pattern is normal. There is spondylosis deformans within the lumbar spine. Both hips are nonspherical.. IMPRESSION: 1. I SUSPECT BILATERAL TINY RENAL CALCULI. 2. I CANNOT EXCLUDE A DISTAL RIGHT URETERIC CALCULUS. 3. MODERATELY SEVERE DEGENERATIVE CHANGES WITHIN THE SPINE. 4. PLEASE CORRELATE CLINICALLY FOR FEMOROACETABULAR IMPINGEMENT SYNDROME.
== END | disposition home or self-care (01) ==
LOC: RADXRMAIN 14:46
PROVIDERS: ATTEND Urology
DX: N20.1 Calculus of ureter (principal)
CPT/HCPCS: 74000

== ENCOUNTER 2018-04-22 19:58 | Observation (INO) | payer MEDICARE ==
[2018-04-22] MEDS ORDERED: MORPHINE SULFATE 4 MG/ML SYRINGE IV STA (20:39)
[2018-04-22] MEDS ORDERED: SODIUM CHLORIDE 0.9% 500 ML 500 ML IV STA (20:39)
[2018-04-22] MEDS ORDERED: SODIUM CHLORIDE 0.9% 1,000 ML IV STA (20:39)
[2018-04-22] MEDS ORDERED: ONDANSETRON 4 MG/2 ML VIAL IVP STA (20:39)
[2018-04-22] MEDS ORDERED: IPRATROPIUM-ALBUTEROL 3 ML NEB INHALATION STA (20:39)
--- NOTE | 2018-04-22 20:40 | ED ---
Weakness HPI - General Stated complaint: Poss bowel obstruction Time Seen by Provider: 04/22/18 20:25 Source: RN notes reviewed, old records reviewed - History of Present Illness Initial comments: This is a 77-year-old male to ER for evasive multiple complaints, inability urinate inability to pass follow-up. Patient also complains of shortness of breath, secondary to pain and difficulty with urination patient was not able to give himself breathing treatments. Patient states he is also currently short of breath. Patient denies any history of other significant similar symptoms MD Complaint: generalized weakness, lack of energy -: hour(s) Location: generalized Severity: mild Severity scale (1-10): 3 Improves with: none Worsens with: movement Context: new medication Associated Symptoms: denies other symptoms - Related Data Home Medications Medication Instructions Recorded Confirmed Atenolol [Tenormin] 25 mg PO DAILY 08/04/14 04/23/18 Furosemide [Lasix] 40 mg PO BID 08/04/14 04/23/18 Insulin NPH Human Isophane 20 unit SQ AC-BRKFST 08/04/14 04/23/18 [NovoLIN N] Insulin Regular, Human [NovoLIN R] See Protocol SQ AC-TID 08/04/14 04/23/18 Levothyroxine Sodium [Synthroid] 100 mcg PO DAILY 08/04/14 04/23/18 Lisinopril [Prinivil] 10 mg PO DAILY 08/04/14 04/23/18 Potassium Chloride [Klor-Con 20] 20 meq PO DAILY 08/04/14 04/23/18 Ranitidine HCl 150 mg PO DAILY 08/04/14 04/23/18 glipiZIDE [Glucotrol XL] 5 mg PO DAILY 08/04/14 04/23/18 Albuterol Inhaler [Ventolin Hfa 1 - 2 puff INHALATION RT-Q4H PRN 11/05/16 Inhaler] Albuterol Nebulized [Ventolin 2.5 mg INHALATION RT-QID 11/05/16 04/23/18 Nebulized] Insulin NPH Human Isophane 12 unit SQ AC-SUPPER 11/05/16 04/23/18 [Humulin N] Ipratropium Nebulized [Atrovent 0.05 mg INHALATION RT-QID 11/05/16 04/23/18 Nebulized] Verapamil HCl [Verapamil ER] 240 mg PO DAILY 11/05/16 04/23/18 Vit C/E/Zn/Coppr/Lutein/Zeaxan 1 cap PO BID 04/22/18 04/23/18 [Preservision Areds 2 Softgel] Previous Rx's Medication Instructions Recorded Azithromycin 250 mg PO DAILY #6 tablet 04/23/18 Hydrocortisone Suppository 25 mg RC BID #10 supp 04/23/18 [Anusol-Hc] Polyethylene Glycol 3350 [Miralax] 17 gm PO DAILY #7 packet 04/23/18 Tamsulosin HCl [Flomax] 0.4 mg PO AC-SUPPER #30 capsule 04/23/18 predniSONE 40 mg PO DAILY #14 tab 04/23/18 Allergies Allergy/AdvReac Type Severity Reaction Status Date / Time No Known Allergies Allergy Verified 04/23/18 01:20 Review of Systems ROS Statement: Those systems with pertinent positive or pertinent negative responses have been documented in the HPI. ROS Other: All systems not noted in ROS Statement are negative. Past Medical History Past Medical History: Asthma, Diabetes Mellitus, Hypertension, Thyroid Disorder Additional Past Medical History / Comment(s): lymphoma, chemotherapy, radiation , colitis History of Any Multi-Drug Resistant Organisms: None Reported Past Surgical History: Coronary Bypass/CABG, Orthopedic Surgery, Pacemaker Additional Past Surgical History / Comment(s): ankle - plate. sinus surgery s/ t cancer Type of Cardiac Device: Permanent Pacemaker Device Placement Date:: 2001 Past Psychological History: No Psychological Hx Reported Smoking Status: Former smoker Past Alcohol Use History: None Reported Additional Past Alcohol Use History / Comment(s): Patient quit smoking in 1967. He denies any medical marijuana, marijuana, street drug or alcohol use. Past Drug Use History: None Reported - Past Family History Brother(s) Additional Family Medical History / Comment(s): Patient has 3 brothers and one has history of coronary artery disease. Sister(s) Additional Family Medical History / Comment(s): Patient has one sister with history of SVT. Son(s) Additional Family Medical History / Comment(s): Patient has 2 sons and one has history of kidney stones. Patient does not have any daughters. Patient has a grandson treated for SVT. Father Family Medical History: No Reported History Additional Family Medical History / Comment(s): Father at age 72 with history of coronary artery disease and CABG Mother Family Medical History: No Reported History Additional Family Medical History / Comment(s): Mother at age 93 with history of coronary artery disease. General Exam General appearance: alert, in no apparent distress Head exam: Present: atraumatic, normocephalic, normal inspection Eye exam: Present: normal appearance, PERRL, EOMI. Absent: scleral icterus, conjunctival injection, periorbital swelling ENT exam: Present: normal exam, mucous membranes moist Neck exam: Present: normal inspection. Absent: tenderness, meningismus, lymphadenopathy Respiratory exam: Present: normal lung sounds bilaterally. Absent: respiratory distress, wheezes, rales, rhonchi, stridor Cardiovascular Exam: Present: regular rate, normal rhythm, normal heart sounds. Absent: systolic murmur, diastolic murmur, rubs, gallop, clicks GI/Abdominal exam: Present: soft, normal bowel sounds. Absent: distended, tenderness, guarding, rebound, rigid Extremities exam: Present: normal inspection, full ROM, normal capillary refill. Absent: tenderness, pedal edema, joint swelling, calf tenderness Back exam: Present: normal inspection Neurological exam: Present: alert, oriented X3, CN II-XII intact Psychiatric exam: Present: normal affect, normal mood Skin exam: Present: warm, dry, intact, normal color. Absent: rash Course Vital Signs 04/22/18 04/22/18 04/22/18 20:44 20:52 22:14 Temperature 97.5 F L Pulse Rate 60 64 Respiratory 16 Rate Blood Pressure 138/67 O2 Sat by Pulse 98 Oximetry 04/22/18 04/22/18 04/23/18 22:35 23:12 00:20 Temperature 97.4 F L Pulse Rate 68 70 67 Respiratory 16 18 Rate Blood Pressure 145/68 123/61 O2 Sat by Pulse 92 L 95 Oximetry 04/23/18 00:55 Temperature Pulse Rate 64 Respiratory 18 Rate Blood Pressure O2 Sat by Pulse 95 Oximetry - Reevaluation(s) Reevaluation #1: 04/22/18 21:42 Medical record is reviewed Patient had Mcgovern catheter placed with significant urine output and symptoms resolving EKG Findings - EKG Comments: EKG Findings:: EKG shows sinus rhythm rate of 65, DE 220, QRS 96, QTc 474 Medical Decision Making - Medical Decision Making 77 male the ER for evaluation of severe abdominal pain and inability to have a bowel movement, patient does have significant urinary retention, Mcgovern catheter is placed with significant improvement. Patient will be admitted for treatment of probable UTI, patient also having mild COPD exacerbation will place on breathing treatments, - Lab Data Result diagrams: 04/22/18 21:03 04/22/18 21:03 Lab Results 04/22/18 04/22/18 04/22/18 Range/Units 21:03 21:03 21:03 WBC 12.3 H (3.8-10.6) k/uL RBC 3.70 L (4.30-5.90) m/uL Hgb 10.9 L (13.0-17.5) gm/dL Hct 34.5 L (39.0-53.0) % MCV 93.2 (80.0-100.0) fL MCH 29.5 (25.0-35.0) pg MCHC 31.7 (31.0-37.0) g/dL RDW 14.8 (11.5-15.5) % Plt Count 211 (150-450) k/uL Neutrophils % (Manual) 70 % Band Neutrophils % 7 % Lymphocytes % (Manual) 19 % Monocytes % (Manual) 2 % Eosinophils % (Manual) 2 % Neutrophils # (Manual) 9.40 H (1.3-7.7) k/uL Lymphocytes # (Manual) 2.34 (1.0-4.8) k/uL Monocytes # (Manual) 0.25 (0-1.0) k/uL Eosinophils # (Manual) 0.25 (0-0.7) k/uL Nucleated RBCs 0 (0-0) /100 WBC Manual Slide Review Performed Anisocytosis (manual) Present Ovalocytes Present PT (9.0-12.0) sec INR (<1.2) APTT (22.0-30.0) sec Sodium 141 (137-145) mmol/L Potassium 5.1 (3.5-5.1) mmol/L Chloride 104 (98-107) mmol/L Carbon Dioxide 27 (22-30) mmol/L Anion Gap 10 mmol/L BUN 29 H (9-20) mg/dL Creatinine 1.43 H (0.66-1.25) mg/dL Est GFR (CKD-EPI)AfAm 55 (>60 ml/min/1.73 sqM) Est GFR (CKD-EPI)NonAf 48 (>60 ml/min/1.73 sqM) Glucose 182 H (74-99) mg/dL POC Glucose (mg/dL) (75-99) mg/dL POC Glu [employer] ID Estimated Ave Glu mg/dL Hemoglobin A1c (4.0-6.0) % Plasma Lactic Acid [place] (0.7-2.0) mmol/L Calcium 9.5 (8.4-10.2) mg/dL Phosphorus 4.1 (2.5-4.5) mg/dL Magnesium 2.3 (1.6-2.3) mg/dL Total Bilirubin 0.3 (0.2-1.3) mg/dL AST 27 (17-59) U/L ALT 32 (21-72) U/L Alkaline Phosphatase 104 (38-126) U/L Total Creatine Kinase 524 H (55-170) U/L CK-MB (CK-2) 5.3 H (0.0-2.4) ng/mL CK-MB (CK-2) Rel Index 1.0 Troponin I <0.012 (0.000-0.034) ng/mL Total Protein 8.0 (6.3-8.2) g/dL Albumin 4.2 (3.5-5.0) g/dL Urine Color Urine Appearance (Clear) Urine pH (5.0-8.0) Ur Specific [place] (1.001-1.035) Urine Protein (Negative) Urine Glucose (UA) (Negative) Urine Ketones (Negative) Urine Blood (Negative) Urine Nitrite (Negative) Urine Bilirubin (Negative) Urine Urobilinogen (<2.0) mg/dL Ur Leukocyte Esterase (Negative) 04/22/18 04/22/18 04/22/18 Range/Units 21:03 21:03 21:04 WBC (3.8-10.6) k/uL RBC (4.30-5.90) m/uL Hgb (13.0-17.5) gm/dL Hct (39.0-53.0) % MCV (80.0-100.0) fL MCH (25.0-35.0) pg MCHC (31.0-37.0) g/dL RDW (11.5-15.5) % Plt Count (150-450) k/uL Neutrophils % (Manual) % Band Neutrophils % % Lymphocytes % (Manual) % Monocytes % (Manual) % Eosinophils % (Manual) % Neutrophils # (Manual) (1.3-7.7) k/uL Lymphocytes # (Manual) (1.0-4.8) k/uL Monocytes # (Manual) (0-1.0) k/uL Eosinophils # (Manual) (0-0.7) k/uL Nucleated RBCs (0-0) /100 WBC Manual Slide Review Anisocytosis (manual) Ovalocytes PT 9.6 (9.0-12.0) sec INR 1.0 (<1.2) APTT 24.2 (22.0-30.0) sec Sodium (137-145) mmol/L Potassium (3.5-5.1) mmol/L Chloride (98-107) mmol/L Carbon Dioxide (22-30) mmol/L Anion Gap mmol/L BUN (9-20) mg/dL Creatinine (0.66-1.25) mg/dL Est GFR (CKD-EPI)AfAm (>60 ml/min/1.73 sqM) Est GFR (CKD-EPI)NonAf (>60 ml/min/1.73 sqM) Glucose (74-99) mg/dL POC Glucose (mg/dL) (75-99) mg/dL POC Glu [employer] ID Estimated Ave Glu mg/dL 183 Hemoglobin A1c 8.0 H (4.0-6.0) % Plasma Lactic Acid [place] 1.5 (0.7-2.0) mmol/L Calcium (8.4-10.2) mg/dL Phosphorus (2.5-4.5) mg/dL Magnesium (1.6-2.3) mg/dL Total Bilirubin (0.2-1.3) mg/dL AST (17-59) U/L ALT (21-72) U/L Alkaline Phosphatase (38-126) U/L Total Creatine Kinase (55-170) U/L CK-MB (CK-2) (0.0-2.4) ng/mL CK-MB (CK-2) Rel Index Troponin I (0.000-0.034) ng/mL Total Protein (6.3-8.2) g/dL Albumin (3.5-5.0) g/dL Urine Color Urine Appearance (Clear) Urine pH (5.0-8.0) Ur Specific [place] (1.001-1.035) Urine Protein (Negative) Urine Glucose (UA) (Negative) Urine Ketones (Negative) Urine Blood (Negative) Urine Nitrite (Negative) Urine Bilirubin (Negative) Urine Urobilinogen (<2.0) mg/dL Ur Leukocyte Esterase (Negative) 04/22/18 04/22/18 Range/Units 22:13 23:00 WBC (3.8-10.6) k/uL RBC (4.30-5.90) m/uL Hgb (13.0-17.5) gm/dL Hct (39.0-53.0) % MCV (80.0-100.0) fL MCH (25.0-35.0) pg MCHC (31.0-37.0) g/dL RDW (11.5-15.5) % Plt Count (150-450) k/uL Neutrophils % (Manual) % Band Neutrophils % % Lymphocytes % (Manual) % Monocytes % (Manual) % Eosinophils % (Manual) % Neutrophils # (Manual) (1.3-7.7) k/uL Lymphocytes # (Manual) (1.0-4.8) k/uL Monocytes # (Manual) (0-1.0) k/uL Eosinophils # (Manual) (0-0.7) k/uL Nucleated RBCs (0-0) /100 WBC Manual Slide Review Anisocytosis (manual) Ovalocytes PT (9.0-12.0) sec INR (<1.2) APTT (22.0-30.0) sec Sodium (137-145) mmol/L Potassium (3.5-5.1) mmol/L Chloride (98-107) mmol/L Carbon Dioxide (22-30) mmol/L Anion Gap mmol/L BUN (9-20) mg/dL Creatinine (0.66-1.25) mg/dL Est GFR (CKD-EPI)AfAm (>60 ml/min/1.73 sqM) Est GFR (CKD-EPI)NonAf (>60 ml/min/1.73 sqM) Glucose (74-99) mg/dL POC Glucose (mg/dL) 202 H (75-99) mg/dL POC Glu [employer]ess ID Yaquelin Wilde Est[address] Glu mg/dL Hemoglobin A1c (4.0-6.0) % Plasma Lactic Acid [place] (0.7-2.0) mmol/L Calcium (8.4-10.2) mg/dL Phosphorus (2.5-4.5) mg/dL Magnesium (1.6-2.3) mg/dL Total Bilirubin (0.2-1.3) mg/dL AST (17-59) U/L ALT (21-72) U/L Alkaline Phosphatase (38-126) U/L Total Creatine Kinase (55-170) U/L CK-MB (CK-2) (0.0-2.4) ng/mL CK-MB (CK-2) Rel Index Troponin I (0.000-0.034) ng/mL Total Protein (6.3-8.2) g/dL Albumin (3.5-5.0) g/dL Urine Color Light Yellow Urine Appearance Clear (Clear) Urine pH 5.0 (5.0-8.0) Ur Specific [place] 1.007 (1.001-1.035) Urine Protein Negative (Negative) Urine Glucose (UA) Negative (Negative) Urine Ketones Negative (Negative) Urine Blood Negative (Negative) Urine Nitrite Negative (Negative) Urine Bilirubin Negative (Negative) Urine Urobilinogen <2.0 (<2.0) mg/dL Ur Leukocyte Esterase Negative (Negative) - Radiology Data Radiology results: report reviewed (X-ray abdominal series and chest negative for acute disease), image reviewed Disposition Clinical Impression: Acute on chronic renal failure, Acute exacerbation of chronic obstructive airways disease, Urinary retention Disposition: ADMITTED IP TO THIS HOSP Condition: Fair Is patient prescribed a controlled substance at d/c from ED?: No
--- NOTE | 2018-04-22 21:35 | XR ---
EXAMINATION TYPE: XR abdomen acute w cxr DATE OF EXAM: 04/22/2018 COMPARISON: 11/18/2016 HISTORY: Constipation TECHNIQUE: Chest x-ray with supine and upright abdomen FINDINGS: There is no heart failure. There is coarsening of the lung markings at the lung bases. There is no pl eural effusion. There are sternal wires. There is left axillary pacemaker with the lead tips in the r ight ventricle. There is no sign of intestinal obstruction or pneumoperitoneum. There is vascular calcification. Ther e is faint amorphous calcifications over the kidneys. IMPRESSION: Mild fibrotic changes at the lung bases. No heart failure. Nonacute abdomen. Abdomen unchanged compar ed to old exam. There is probably a new minimal infiltrate at the right lung base compared to old [facility] [address] x-ray of 08/04/2014.
[2018-04-22 21:58] LABS: Partial Thromboplastin Time 24.2 sec (22.0-30.0); Prothrombin Time 9.6 sec (9.0-12.0)
[2018-04-22] MEDS ORDERED: DEXTROSE 50%-WATER 50 ML SYRINGE IVP STA (22:06)
[2018-04-22] MEDS ORDERED: LORazepam 2 MG/ML INJ IV STA (22:06)
[2018-04-22 22:09] LABS: Albumin 4.2 g/dL (3.5-5.0); Calcium 9.5 mg/dL (8.4-10.2); Magnesium 2.3 mg/dL (1.6-2.3); Phosphorus 4.1 mg/dL (2.5-4.5); Potassium 5.1 mmol/L (3.5-5.1); Total Bilirubin 0.3 mg/dL (0.2-1.3)
[2018-04-22 22:15] LABS: Glucose,Whole Blood 202 mg/dL (75-99)
[2018-04-22 22:19] LABS: Creatine Kinase 524 U/L (55-170)
[2018-04-22 22:22] LABS: HCT 34.5 % (39.0-53.0); HGB 10.9 gm/dL (13.0-17.5); MCH 29.5 pg (25.0-35.0); MCHC 31.7 g/dL (31.0-37.0); MCV 93.2 fL (80.0-100.0); Mean Platelet Volume 6.6; Platelet Count 211 k/uL (150-450); RDW 14.8 % (11.5-15.5); WBC 12.3 k/uL (3.8-10.6)
[2018-04-22 22:33] LABS: Creatine Kinase MB 5.3 ng/mL (0.0-2.4); Troponin I <0.012 ng/mL (0.000-0.034)
[2018-04-22 23:42] LABS: Appearance,Urine Clear (Clear); Bilirubin,Urine Negative (Negative); Blood,Urine Negative (Negative); Color,Urine Light Yellow; Glucose,Urine (UA) Negative (Negative); Ketones,Urine Negative (Negative); Leukocyte Esterase,Urine Negative (Negative); Nitrite,Urine Negative (Negative); Protein,Urine Negative (Negative); Specific Gravity,Urine 1.007 (1.001-1.035); Urobilinogen,Urine <2.0 mg/dL (<2.0)
[2018-04-22 23:48] LABS: Band Neutrophils % 7 %; Eosinophils # (M) 0.25 k/uL (0-0.7); Lymphocytes # (M) 2.34 k/uL (1.0-4.8); Monocytes # (M) 0.25 k/uL (0-1.0); Neutrophils % (M) 70 %; Nucleated Red Blood Cells 0 /100 WBC (0-0); Total Cells Counted 100
[2018-04-22 23:52] LABS: Ovalocytes Present
[2018-04-22 23:53] LABS: Anisocytosis (M) Present
[2018-04-23] MEDS ORDERED: IPRATROPIUM-ALBUTEROL 3 ML NEB INHALATION PRN (00:08)
[2018-04-23] MEDS ORDERED: methylPREDNISolone SOD SUCCI 125 MG/2 ML VIAL IV STA (00:08)
[2018-04-23] MEDS: methylPREDNISolone SOD SUCCI 125 MG/2 ML VIAL IV SCH ×3 (00:14→11:23)
[2018-04-23 06:45] LABS: Glucose,Whole Blood 246 mg/dL (75-99)
[2018-04-23] MEDS: IPRATROPIUM-ALBUTEROL 3 ML NEB INHALATION SCH ×2 (07:24→12:35)
[2018-04-23] MEDS: INSULIN ASPART 100 UNIT/ML 1 ML 10 ML VIAL SQ SCH ×2 (08:08→12:15)
[2018-04-23 08:31] VITALS: BP 145/67; TEMP 97.5
[2018-04-23 08:35] VITALS: RESP 18
[2018-04-23] MEDS ORDERED: POTASSIUM CHLORIDE ER 20 MEQ TAB.ER PO SCH (09:00)
[2018-04-23] MEDS ORDERED: ALBUTEROL NEBULIZED 2.5 MG/3 ML INHALATION PRN (09:08)
[2018-04-23] MEDS ORDERED: LISINOPRIL 10 MG TAB PO SCH (09:15)
[2018-04-23] MEDS ORDERED: glipiZIDE 5 MG TAB PO SCH (09:15)
[2018-04-23] MEDS ORDERED: VERAPAMIL SR 240 MG TABLET.ER PO SCH (09:15)
[2018-04-23] MEDS ORDERED: FAMOTIDINE 20 MG TAB PO SCH (09:15)
[2018-04-23] MEDS ORDERED: INSULIN NPH 300 UNIT/3 ML VIAL SQ SCH ×2 (09:15→17:30)
[2018-04-23] MEDS ORDERED: ATENOLOL 25 MG TAB PO SCH (09:15)
[2018-04-23] MEDS ORDERED: FUROSEMIDE 40 MG TAB PO SCH (09:15)
[2018-04-23 11:55] LABS: Glucose,Whole Blood 390 mg/dL (75-99)
[2018-04-23] MEDS ORDERED: ALBUTEROL NEBULIZED 2.5 MG/3 ML INHALATION SCH (12:00)
[2018-04-23 14:19] VITALS: PULSE 69
--- NOTE | 2018-04-23 15:54 | P.HPIM ---
History of Present Illness H&P Date: 04/23/18 (This document will serve as both H&P and discharge summary) 77 years old male patient of Dr. Venegas with past medical history of asthma, COPD, diabetes, hypertension, hypothyroidism, history of lymphoma status post chemotherapy and radiation, history of colitis, history of coronary artery disease status post CABG, history of sick sinus syndrome status post pacemaker in 2001 Comes in with increasing shortness of breath associated with difficulty urinating. Patient had chest x-ray that suggested minimal movement infiltrate in the right lung base with fibrotic changes with delaying bases with no heart failure nonacute abdomen. Mcgovern catheter was placed with an output of 2 L. Patient had immediate relief of the shortness of breath. He did get breathing treatment that helped him improvement of the shortness of breath. No wheezing is appreciated on examination today. Patient denies any chest pain, shortness shortness of breath, abdominal pain he does have constipation and hemorrhoids from that. Labs evaluative and the ER suggestive hemoglobin of 10.9, WBC 12.3, INR 1, glucose of 390 this morning after patient got a Solu-Medrol 60 IV dose, LFTs are normal, troponin 1 is negative. Review of Systems Constitutional: Denies chills, Denies fever, Denies lethargy, Denies malaise, Denies poor appetite, Denies weakness, Denies weight loss Eyes: denies decreased vision, denies diplopia, denies discharge, denies pain Ears: deny: decreased hearing Ears, nose, mouth and throat: Denies dental pain, Denies headache, Denies nasal discharge, Denies nose pain Cardiovascular: Denies chest pain, Denies decreased exercise tolerance, Denies edema, Denies high blood pressure, Denies irregular heart beat, Denies palpitations, Denies paroxysmal nocturnal dyspnea, Denies rapid heart beat, Denies shortness of breath Respiratory: Denies congestion, Denies cough, Denies cough with sputum, Denies dyspnea, Denies home oxygen, Denies wheezing Gastrointestinal: Denies abdominal pain,endorses change in bowel habits, Denies coffee ground emesis, Denies early satiety, Denies excessive gas, Denies heartburn, Denies hematemesis, Denies hematochezia, Denies loss of appetite, Denies nausea, Denies vomiting Genitourinary: Denies dysuria, Denies flank pain, Denies kidney stones, Denies menorrhagia, Denies urgency, Denies urinary frequency, urine retention Musculoskeletal: Denies gait dysfunction, Denies limitation of motion, Denies morning stiffness, Denies muscle cramps Integumentary: Denies rash, Denies wounds, Denies brittle nails, Denies change in hair/nails, Denies darkening of skin Neurological: Denies balance difficulties, Denies change in speech, Denies double vision, Denies gait dysfunction, Denies loss of vision, Denies motor disturbance, Denies numbness, Denies paralysis, Denies paresthesias, Denies seizures Psychiatric: Denies anxiety, Denies depression Endocrine: Denies excessive sweating, Denies excessive thirst, Denies high blood sugars, Denies palpitations Hematologic/Lymphatic: Denies easy bruising, Denies lymphadenopathy Past Medical History Past Medical History: Asthma, Diabetes Mellitus, Hypertension, Thyroid Disorder Additional Past Medical History / Comment(s): lymphoma, chemotherapy, radiation , colitis History of Any Multi-Drug Resistant Organisms: None Reported Past Surgical History: Coronary Bypass/CABG, Heart Catheterization With Stent, Orthopedic Surgery, Pacemaker Additional Past Surgical History / Comment(s): ankle - plate. sinus surgery s/ t cancer Past Anesthesia/Blood Transfusion Reactions: No Reported Reaction Date of Last Stent Placement:: 2001 Type of Cardiac Device: Permanent Pacemaker Device Placement Date:: 2001 Past Psychological History: No Psychological Hx Reported Smoking Status: Former smoker Past Alcohol Use History: None Reported Past Drug Use History: None Reported - Past Family History Brother(s) Additional Family Medical History / Comment(s): Patient has 3 brothers and one has history of coronary artery disease. Sister(s) Additional Family Medical History / Comment(s): Patient has one sister with history of SVT. Son(s) Additional Family Medical History / Comment(s): Patient has 2 sons and one has history of kidney stones. Patient does not have any daughters. Patient has a grandson treated for SVT. Father Family Medical History: No Reported History Additional Family Medical History / Comment(s): Father at age 72 with history of coronary artery disease and CABG Mother Family Medical History: No Reported History Additional Family Medical History / Comment(s): Mother at age 93 with history of coronary artery disease. Medications and Allergies Home Medications Medication Instructions Recorded Confirmed Type Atenolol [Tenormin] 25 mg PO DAILY 08/04/14 04/23/18 History Furosemide [Lasix] 40 mg PO BID 08/04/14 04/23/18 History Insulin NPH Human Isophane 20 unit SQ AC-BRKFST 08/04/14 04/23/18 History [NovoLIN N] Insulin Regular, Human [NovoLIN R] See Protocol SQ AC-TID 08/04/14 04/23/18 History Levothyroxine Sodium [Synthroid] 100 mcg PO DAILY 08/04/14 04/23/18 History Lisinopril [Prinivil] 10 mg PO DAILY 08/04/14 04/23/18 History Potassium Chloride [Klor-Con 20] 20 meq PO DAILY 08/04/14 04/23/18 History Ranitidine HCl 150 mg PO DAILY 08/04/14 04/23/18 History glipiZIDE [Glucotrol XL] 5 mg PO DAILY 08/04/14 04/23/18 History Albuterol Inhaler [Ventolin Hfa 1 - 2 puff INHALATION RT-Q4H PRN 11/05/16 History Inhaler] Albuterol Nebulized [Ventolin 2.5 mg INHALATION RT-QID 11/05/16 04/23/18 History Nebulized] Insulin NPH Human Isophane 12 unit SQ AC-SUPPER 11/05/16 04/23/18 History [Humulin N] Ipratropium Nebulized [Atrovent 0.05 mg INHALATION RT-QID 11/05/16 04/23/18 History Nebulized] Verapamil HCl [Verapamil ER] 240 mg PO DAILY 11/05/16 04/23/18 History Vit C/E/Zn/Coppr/Lutein/Zeaxan 1 cap PO BID 04/22/18 04/23/18 History [Preservision Areds 2 Softgel] Azithromycin 250 mg PO DAILY #6 tablet 04/23/18 Rx Polyethylene Glycol 3350 [Miralax] 17 gm PO DAILY #7 packet 04/23/18 Rx Tamsulosin HCl [Flomax] 0.4 mg PO AC-SUPPER #30 capsule 04/23/18 Rx predniSONE 40 mg PO DAILY #14 tab 04/23/18 Rx Allergies Allergy/AdvReac Type Severity Reaction Status Date / Time No Known Allergies Allergy Verified 04/23/18 01:20 Physical Exam Vitals: Vital Signs Temp Pulse Pulse Resp BP BP Pulse Ox 04/23/18 12:45 72 04/23/18 12:37 76 04/23/18 12:00 69 18 04/23/18 08:00 97.5 F L 70 16 145/67 95 04/23/18 07:37 80 04/23/18 07:24 72 04/23/18 01:49 18 04/23/18 01:22 97.6 F 69 18 139/64 95 04/23/18 00:55 64 18 95 04/23/18 00:20 97.4 F L 67 18 123/61 95 04/22/18 23:12 70 16 145/68 92 L 04/22/18 22:35 68 04/22/18 22:14 64 04/22/18 20:52 138/67 04/22/18 20:44 97.5 F L 60 16 98 Intake and Output 04/23/18 04/23/18 04/23/18 06:59 14:59 22:59 Intake Total 236 Output Total 1999 Balance -1999 236 Intake: Oral 236 Output: Urine 1999 Uretheral (Mcgovern) 1300 Other: Voiding Method Indwelling Catheter Indwelling Catheter # Bowel Movements 1 - Constitutional General appearance: cooperative, no acute distress, obese - EENT Eyes: anicteric sclerae, PERRLA, normal appearance ENT: hearing grossly normal - Neck Neck: no lymphadenopathy, normal ROM, no other, no rigidity, no stridor, no thyromegaly - Respiratory Respiratory: bilateral: CTA, negative: diminished, dullness, rales, rhonchi - Cardiovascular Rhythm: regular Heart sounds: normal: S1, S2 Abnormal Heart Sounds: no systolic murmur, no diastolic murmur, no rub, no S3 Gallop, no S4 Gallop, no click, no other - Gastrointestinal General gastrointestinal: normal bowel sounds, soft nontender Integumentary: no rash chronic dermatitis changes of the bilateral lower foot - Integumentary - Neurologic Neurologic: CNII-XII intact no sensory or motor deficit - Musculoskeletal Musculoskeletal: gait normal, strength equal bilaterally - Psychiatric Psychiatric: A&O x's 3, appropriate affect Results CBC & Chem 7: 04/22/18 21:03 04/22/18 21:03 Labs: Abnormal Lab Results - Last 24 Hours (Table) 04/22/18 04/22/18 04/22/18 Range/Units 21:03 21:03 21:03 WBC 12.3 H (3.8-10.6) k/uL RBC 3.70 L (4.30-5.90) m/uL Hgb 10.9 L (13.0-17.5) gm/dL Hct 34.5 L (39.0-53.0) % Neutrophils # (Manual) 9.40 H (1.3-7.7) k/uL BUN 29 H (9-20) mg/dL Creatinine 1.43 H (0.66-1.25) mg/dL Glucose 182 H (74-99) mg/dL POC Glucose (mg/dL) (75-99) mg/dL Hemoglobin A1c (4.0-6.0) % Total Creatine Kinase 524 H (55-170) U/L CK-MB (CK-2) 5.3 H (0.0-2.4) ng/mL 04/22/18 04/22/18 04/23/18 Range/Units 21:04 22:13 06:44 WBC (3.8-10.6) k/uL RBC (4.30-5.90) m/uL Hgb (13.0-17.5) gm/dL Hct (39.0-53.0) % Neutrophils # (Manual) (1.3-7.7) k/uL BUN (9-20) mg/dL Creatinine (0.66-1.25) mg/dL Glucose (74-99) mg/dL POC Glucose (mg/dL) 202 H 246 H (75-99) mg/dL Hemoglobin A1c 8.0 H (4.0-6.0) % Total Creatine Kinase (55-170) U/L CK-MB (CK-2) (0.0-2.4) ng/mL 04/23/18 Range/Units 11:54 WBC (3.8-10.6) k/uL RBC (4.30-5.90) m/uL Hgb (13.0-17.5) gm/dL Hct (39.0-53.0) % Neutrophils # (Manual) (1.3-7.7) k/uL BUN (9-20) mg/dL Creatinine (0.66-1.25) mg/dL Glucose (74-99) mg/dL POC Glucose (mg/dL) 390 H (75-99) mg/dL Hemoglobin A1c (4.0-6.0) % Total Creatine Kinase (55-170) U/L CK-MB (CK-2) (0.0-2.4) ng/mL Thrombosis Risk Factor Assmnt - DVT/VTE Prophylaxis DVT/VTE Prophylaxis: Pharmacologic Prophylaxis ordered - Choose All That Apply Any of the Below Risk Factors Present?: Yes Each Factor Represents 1 point: Abnormal pulmonary function (COPD), Obesity ( BMI >25), Swollen legs (current) Other Risk Factors: Yes Each Risk Factor Represents 3 Points: Age 75 years or older Other congenital or acquired thrombophilia - If yes, enter type in comment: No Thrombosis Risk Factor Assessment Total Risk Factor Score: 6 Thrombosis Risk Factor Assessment Level: High Risk Assessment and Plan Plan: #1 acute urinary retention likely secondary to diabetes. Mcgovern catheter placement with adequate urine output. Urology consult placed will follow up as outpatient. No history of BPH according to the patient will start on Flomax though as patient has urinary retention and patient will be discharged with Mcgovern catheter #2 uncontrolled type 2 diabetes on Novolin 7030 and glipizide 5 mg by mouth daily. Patient's glucose this morning were high secondary to steroid administration. Steroids will be switched to oral and patient asked to follow up with Dr. Venegas for management of uncontrolled diabetes HbA1c in the hospital is 9.3 #3 constipation she had no bowel movement for 2 days. Will be started on MiraLAX #4 COPD exacerbation no wheezing on examination but patient does suggest he was having some yesterday. Was sent home on prednisone and Z-Asad. Currently patient is requiring no oxygen. Walking pulse ox was done with no shortness of breath on examination with saturation 96%. #5 coronary artery disease status post CABG in 2001 with placement of pacemaker for asystole post CABG continue verapamil 240 mg by mouth daily, lisinopril 10 mg by mouth daily, Lasix 40 mg twice a day, atenolol 25 mg by mouth daily #6 hypertension number pressure control on lisinopril 10 mg, atenolol 25 mg by mouth daily #7 Hyperlipidemia controlled on diet #8 history of lymphoma status post chemotherapy and radiation therapy #9 history of hemorrhoids episode of fresh blood in the stool. Patient asked to use anusol BI d #10 code status full code 11 disposition home with self-care CC a copy of discharge to Dr. Venegas
[2018-04-23] MEDS ORDERED: VIT A,C & E-LUTEIN-MINERALS 1 EACH TAB PO SCH (21:00)
[2018-04-24] MEDS ORDERED: LEVOTHYROXINE 100 MCG TAB PO SCH (06:30)
== END 2018-04-23 16:58 | disposition home or self-care (01) ==
LOC: EC 19:58 → 1SOBS 04-23 00:07
PROVIDERS: ADMIT Internal Medicine; ATTEND Internal Medicine
DX: R33.9 Retention of urine, unspecified (principal); J44.1 Chronic obstructive pulmonary disease with (acute) exacerbation; I10 Essential (primary) hypertension; E11.65 Type 2 diabetes mellitus with hyperglycemia; T38.0X5A Adverse effect of glucocorticoids and synthetic analogues, initial encounter; I25.10 Atherosclerotic heart disease of native coronary artery without angina pectoris; E03.9 Hypothyroidism, unspecified; Z68.33 Body mass index [BMI] 33.0-33.9, adult; M79.89 Other specified soft tissue disorders; K59.00 Constipation, unspecified; E78.5 Hyperlipidemia, unspecified; K64.9 Unspecified hemorrhoids; Z79.4 Long term (current) use of insulin; Z79.890 Hormone replacement therapy; Z79.899 Other long term (current) drug therapy; Z95.0 Presence of cardiac pacemaker; Z92.21 Personal history of antineoplastic chemotherapy; Z92.3 Personal history of irradiation; Z85.72 Personal history of non-Hodgkin lymphomas; Z95.1 Presence of aortocoronary bypass graft; Z87.19 Personal history of other diseases of the digestive system; Z87.891 Personal history of nicotine dependence; Z84.1 Family history of disorders of kidney and ureter; Z82.49 Family history of ischemic heart disease and other diseases of the circulatory system
CPT/HCPCS: 96376; 96361; 96374; 96375 ×2; 99285; 51702; 36415; 94640 ×3; 93005; 80053; 82550; 82553; 83605; 83735; 84100; 84484; 85025; 85610; 85730; 81003; 83036; 74022; G0378; J2060; J2270; J2930; J2405

== ENCOUNTER 2018-05-02 07:16 | Inpatient (IN) | payer MEDICARE ==
[2018-05-02] MEDS ORDERED: SODIUM CHLORIDE 0.9% 1,000 ML IV STA ×3 (07:23→08:33)
--- NOTE | 2018-05-02 07:31 | ED ---
Weakness HPI - General Chief complaint: Weakness Stated complaint: Fever Time Seen by Provider: 05/02/18 07:16 Source: patient, RN notes reviewed, old records reviewed Mode of arrival: EMS Limitations: no limitations - History of Present Illness Initial comments: This is a 77-year-old male with a history of lymphoma COPD kidney stones and a recent admission in April 23 for urinary retention and COPD who presents this morning by EMS with complaints of fever weakness some confusion he had a temperature of 100.9 orally per paramedics he glucose of 350. Patient was demonstrating some confusion with the paramedics as well as family members stating this at home. No recent falls no chills or sweats no cough or phlegm production. MD Complaint: generalized weakness - Related Data Home Medications Medication Instructions Recorded Confirmed Atenolol [Tenormin] 25 mg PO DAILY 08/04/14 04/23/18 Furosemide [Lasix] 40 mg PO BID 08/04/14 04/23/18 Insulin NPH Human Isophane 20 unit SQ AC-BRKFST 08/04/14 04/23/18 [NovoLIN N] Insulin Regular, Human [NovoLIN R] See Protocol SQ AC-TID 08/04/14 04/23/18 Levothyroxine Sodium [Synthroid] 100 mcg PO DAILY 08/04/14 04/23/18 Lisinopril [Prinivil] 10 mg PO DAILY 08/04/14 04/23/18 Potassium Chloride [Klor-Con 20] 20 meq PO DAILY 08/04/14 04/23/18 Ranitidine HCl 150 mg PO DAILY 08/04/14 04/23/18 glipiZIDE [Glucotrol XL] 5 mg PO DAILY 08/04/14 04/23/18 Albuterol Inhaler [Ventolin Hfa 1 - 2 puff INHALATION RT-Q4H PRN 11/05/16 Inhaler] Albuterol Nebulized [Ventolin 2.5 mg INHALATION RT-QID 11/05/16 04/23/18 Nebulized] Insulin NPH Human Isophane 12 unit SQ AC-SUPPER 11/05/16 04/23/18 [Humulin N] Ipratropium Nebulized [Atrovent 0.05 mg INHALATION RT-QID 11/05/16 04/23/18 Nebulized] Verapamil HCl [Verapamil ER] 240 mg PO DAILY 11/05/16 04/23/18 Vit C/E/Zn/Coppr/Lutein/Zeaxan 1 cap PO BID 04/22/18 04/23/18 [Preservision Areds 2 Softgel] Previous Rx's Medication Instructions Recorded Azithromycin 250 mg PO DAILY #6 tablet 04/23/18 Hydrocortisone Suppository 25 mg RC BID #10 supp 04/23/18 [Anusol-Hc] Polyethylene Glycol 3350 [Miralax] 17 gm PO DAILY #7 packet 04/23/18 Tamsulosin HCl [Flomax] 0.4 mg PO AC-SUPPER #30 capsule 04/23/18 predniSONE 40 mg PO DAILY #14 tab 04/23/18 Allergies Allergy/AdvReac Type Severity Reaction Status Date / Time No Known Allergies Allergy Verified 05/02/18 07:26 Review of Systems ROS Statement: Those systems with pertinent positive or pertinent negative responses have been documented in the HPI. ROS Other: All systems not noted in ROS Statement are negative. Past Medical History Past Medical History: Asthma, Diabetes Mellitus, Hypertension, Thyroid Disorder Additional Past Medical History / Comment(s): lymphoma, chemotherapy, radiation , colitis History of Any Multi-Drug Resistant Organisms: None Reported Past Surgical History: Coronary Bypass/CABG, Orthopedic Surgery, Pacemaker Additional Past Surgical History / Comment(s): ankle - plate. sinus surgery s/ t cancer Past Anesthesia/Blood Transfusion Reactions: No Reported Reaction Date of Last Stent Placement:: 2001 Type of Cardiac Device: Permanent Pacemaker Device Placement Date:: 2001 Past Psychological History: No Psychological Hx Reported Smoking Status: Former smoker Past Alcohol Use History: None Reported Past Drug Use History: None Reported - Past Family History Brother(s) Additional Family Medical History / Comment(s): Patient has 3 brothers and one has history of coronary artery disease. Sister(s) Additional Family Medical History / Comment(s): Patient has one sister with history of SVT. Son(s) Additional Family Medical History / Comment(s): Patient has 2 sons and one has history of kidney stones. Patient does not have any daughters. Patient has a grandson treated for SVT. Father Family Medical History: No Reported History Additional Family Medical History / Comment(s): Father at age 72 with history of coronary artery disease and CABG Mother Family Medical History: No Reported History Additional Family Medical History / Comment(s): Mother at age 93 with history of coronary artery disease. General Exam - General Exam Comments Initial Comments: This a well-developed sec appearing male who is awake alert with some rambling thoughts Limitations: no limitations General appearance: alert, lethargic Head exam: Present: atraumatic, normocephalic, normal inspection Eye exam: Present: normal appearance, PERRL, EOMI. Absent: scleral icterus, conjunctival injection, periorbital swelling ENT exam: Present: mucous membranes dry Neck exam: Present: normal inspection. Absent: tenderness, meningismus, lymphadenopathy Respiratory exam: Present: decreased breath sounds. Absent: respiratory distress, wheezes, rales, rhonchi, stridor Cardiovascular Exam: Present: regular rate, normal rhythm, normal heart sounds. Absent: systolic murmur, diastolic murmur, rubs, gallop, clicks GI/Abdominal exam: Present: soft, normal bowel sounds, other (Evidence of a distended bladder). Absent: distended, tenderness, guarding, rebound, rigid Extremities exam: Present: full ROM, normal capillary refill, other (Stasis dermatitis with edema bilaterally.). Absent: tenderness, pedal edema, joint swelling, calf tenderness Back exam: Present: normal inspection Neurological exam: Present: alert, oriented X3, CN II-XII intact Psychiatric exam: Present: normal affect, normal mood Skin exam: Present: warm, dry, intact, normal color. Absent: rash Course Vital Signs 05/02/18 05/02/18 05/02/18 07:19 07:22 07:50 Temperature 99.2 F 99.8 F H Pulse Rate 72 Respiratory 16 Rate Blood Pressure 135/58 O2 Sat by Pulse 95 96 Oximetry 05/02/18 05/02/18 05/02/18 08:00 09:00 10:00 Temperature Pulse Rate 70 66 62 Respiratory 20 20 18 Rate Blood Pressure 145/54 135/52 124/55 O2 Sat by Pulse 95 94 L 92 L Oximetry Medical Decision Making - Medical Decision Making I did discuss findings with patient family members patient did have evidence of urinary retention and evidence of acute renal failure. Size a fever of since in the morgue at this time. He does demonstrate stasis dermatitis though I do not believe this is the source of this time. The patient's elevated lactic acid is likely on the basis of fluid deficit/dehydration. He does have a febrile illness however he will be placed on appropriate antibiotics and did discuss case with Dr. Broderick who did come in to see the patient in the emergency department. - Lab Data Result diagrams: 05/02/18 07:44 05/02/18 07:44 Lab Results 05/02/18 05/02/18 05/02/18 Range/Units 07:44 07:44 07:44 WBC (3.8-10.6) k/uL RBC (4.30-5.90) m/uL Hgb (13.0-17.5) gm/dL Hct (39.0-53.0) % MCV (80.0-100.0) fL MCH (25.0-35.0) pg MCHC (31.0-37.0) g/dL RDW (11.5-15.5) % Plt Count (150-450) k/uL Neutrophils % % Lymphocytes % % Monocytes % % Eosinophils % % Basophils % % Neutrophils # (1.3-7.7) k/uL Lymphocytes # (1.0-4.8) k/uL Monocytes # (0-1.0) k/uL Eosinophils # (0-0.7) k/uL Basophils # (0-0.2) k/uL Sodium 139 (137-145) mmol/L Potassium 5.0 (3.5-5.1) mmol/L Chloride 107 (98-107) mmol/L Carbon Dioxide 20 L (22-30) mmol/L Anion Gap 12 mmol/L BUN 97 H (9-20) mg/dL Creatinine 3.72 H (0.66-1.25) mg/dL Est GFR (CKD-EPI)AfAm 17 (>60 ml/min/1.73 sqM) Est GFR (CKD-EPI)NonAf 15 (>60 ml/min/1.73 sqM) Glucose 186 H (74-99) mg/dL Plasma Lactic Acid [place] (0.7-2.0) mmol/L Calcium 8.5 (8.4-10.2) mg/dL Magnesium 2.6 H (1.6-2.3) mg/dL Total Bilirubin 0.4 (0.2-1.3) mg/dL AST 17 (17-59) U/L ALT 28 (21-72) U/L Alkaline Phosphatase 100 (38-126) U/L Ammonia <9 (<30) umol/L Total Creatine Kinase 100 (55-170) U/L CK-MB (CK-2) 3.3 H (0.0-2.4) ng/mL CK-MB (CK-2) Rel Index 3.3 Troponin I 0.020 (0.000-0.034) ng/mL Total Protein 6.5 (6.3-8.2) g/dL Albumin 3.2 L (3.5-5.0) g/dL Amylase 34 (30-110) U/L Lipase 63 (23-300) U/L Urine Color Urine Appearance (Clear) Urine pH (5.0-8.0) Ur Specific [place] (1.001-1.035) Urine Protein (Negative) Urine Glucose (UA) (Negative) Urine Ketones (Negative) Urine Blood (Negative) Urine Nitrite (Negative) Urine Bilirubin (Negative) Urine Urobilinogen (<2.0) mg/dL Ur Leukocyte Esterase (Negative) Urine RBC (0-5) /hpf Urine WBC (0-5) /hpf Ur Squamous Epith Cells (0-4) /hpf Urine Bacteria (None) /hpf Hyaline Casts (0-2) /lpf Urine Mucus (None) /hpf Acetone, Qual Negative (Negative) Influenza Type A RNA (Not Detectd) Influenza Type B (PCR) (Not Detectd) 05/02/18 05/02/18 05/02/18 Range/Units 07:44 07:44 07:44 WBC 17.6 H (3.8-10.6) k/uL RBC 3.50 L (4.30-5.90) m/uL Hgb 10.6 L (13.0-17.5) gm/dL Hct 32.5 L (39.0-53.0) % MCV 92.9 (80.0-100.0) fL MCH 30.2 (25.0-35.0) pg MCHC 32.5 (31.0-37.0) g/dL RDW 14.7 (11.5-15.5) % Plt Count 178 (150-450) k/uL Neutrophils % 94 % Lymphocytes % 3 % Monocytes % 2 % Eosinophils % 1 % Basophils % 0 % Neutrophils # 16.5 H (1.3-7.7) k/uL Lymphocytes # 0.5 L (1.0-4.8) k/uL Monocytes # 0.4 (0-1.0) k/uL Eosinophils # 0.1 (0-0.7) k/uL Basophils # 0.0 (0-0.2) k/uL Sodium (137-145) mmol/L Potassium (3.5-5.1) mmol/L Chloride (98-107) mmol/L Carbon Dioxide (22-30) mmol/L Anion Gap mmol/L BUN (9-20) mg/dL Creatinine (0.66-1.25) mg/dL Est GFR (CKD-EPI)AfAm (>60 ml/min/1.73 sqM) Est GFR (CKD-EPI)NonAf (>60 ml/min/1.73 sqM) Glucose (74-99) mg/dL Plasma Lactic Acid [place] 2.3 H* (0.7-2.0) mmol/L Calcium (8.4-10.2) mg/dL Magnesium (1.6-2.3) mg/dL Total Bilirubin (0.2-1.3) mg/dL AST (17-59) U/L ALT (21-72) U/L Alkaline Phosphatase (38-126) U/L Ammonia (<30) umol/L Total Creatine Kinase (55-170) U/L CK-MB (CK-2) (0.0-2.4) ng/mL CK-MB (CK-2) Rel Index Troponin I (0.000-0.034) ng/mL Total Protein (6.3-8.2) g/dL Albumin (3.5-5.0) g/dL Amylase (30-110) U/L Lipase (23-300) U/L Urine Color Urine Appearance (Clear) Urine pH (5.0-8.0) Ur Specific [place] (1.001-1.035) Urine Protein (Negative) Urine Glucose (UA) (Negative) Urine Ketones (Negative) Urine Blood (Negative) Urine Nitrite (Negative) Urine Bilirubin (Negative) Urine Urobilinogen (<2.0) mg/dL Ur Leukocyte Esterase (Negative) Urine RBC (0-5) /hpf Urine WBC (0-5) /hpf Ur Squamous Epith Cells (0-4) /hpf Urine Bacteria (None) /hpf Hyaline Casts (0-2) /lpf Urine Mucus (None) /hpf Acetone, Qual (Negative) Influenza Type A RNA Not Detected (Not Detectd) Influenza Type B (PCR) Not Detected (Not Detectd) 05/02/18 Range/Units 08:13 WBC (3.8-10.6) k/uL RBC (4.30-5.90) m/uL Hgb (13.0-17.5) gm/dL Hct (39.0-53.0) % MCV (80.0-100.0) fL MCH (25.0-35.0) pg MCHC (31.0-37.0) g/dL RDW (11.5-15.5) % Plt Count (150-450) k/uL Neutrophils % % Lymphocytes % % Monocytes % % Eosinophils % % Basophils % % Neutrophils # (1.3-7.7) k/uL Lymphocytes # (1.0-4.8) k/uL Monocytes # (0-1.0) k/uL Eosinophils # (0-0.7) k/uL Basophils # (0-0.2) k/uL Sodium (137-145) mmol/L Potassium (3.5-5.1) mmol/L Chloride (98-107) mmol/L Carbon Dioxide (22-30) mmol/L Anion Gap mmol/L BUN (9-20) mg/dL Creatinine (0.66-1.25) mg/dL Est GFR (CKD-EPI)AfAm (>60 ml/min/1.73 sqM) Est GFR (CKD-EPI)NonAf (>60 ml/min/1.73 sqM) Glucose (74-99) mg/dL Plasma Lactic Acid [place] (0.7-2.0) mmol/L Calcium (8.4-10.2) mg/dL Magnesium (1.6-2.3) mg/dL Total Bilirubin (0.2-1.3) mg/dL AST (17-59) U/L ALT (21-72) U/L Alkaline Phosphatase (38-126) U/L Ammonia (<30) umol/L Total Creatine Kinase (55-170) U/L CK-MB (CK-2) (0.0-2.4) ng/mL CK-MB (CK-2) Rel Index Troponin I (0.000-0.034) ng/mL Total Protein (6.3-8.2) g/dL Albumin (3.5-5.0) g/dL Amylase (30-110) U/L Lipase (23-300) U/L Urine Color Light Yellow Urine Appearance Clear (Clear) Urine pH 5.0 (5.0-8.0) Ur Specific [place] 1.009 (1.001-1.035) Urine Protein Trace H (Negative) Urine Glucose (UA) 3+ H (Negative) Urine Ketones Negative (Negative) Urine Blood Trace H (Negative) Urine Nitrite Negative (Negative) Urine Bilirubin Negative (Negative) Urine Urobilinogen <2.0 (<2.0) mg/dL Ur Leukocyte Esterase Negative (Negative) Urine RBC 2 (0-5) /hpf Urine WBC 2 (0-5) /hpf Ur Squamous Epith Cells <1 (0-4) /hpf Urine Bacteria Rare H (None) /hpf Hyaline Casts 1 (0-2) /lpf Urine Mucus Rare H (None) /hpf Acetone, Qual (Negative) Influenza Type A RNA (Not Detectd) Influenza Type B (PCR) (Not Detectd) - Radiology Data Radiology results: report reviewed (I did review the imaging and report no definite infiltrates are is evidence of increased markings.), image reviewed Disposition Clinical Impression: Acute renal failure (ARF), Acute urinary retention, Fever of unknown origin ( FUO) Disposition: ADMITTED IP TO THIS HOSP Condition: Serious Referrals: Samuel Venegas MD [Primary Care Provider] - 1-2 days
[2018-05-02] MEDS ORDERED: ACETAMINOPHEN TAB 325 MG TAB PO STA (07:54)
[2018-05-02 08:06] LABS: Basophils % (A) 0 %; Eosinophils # (A) 0.1 k/uL (0-0.7); Eosinophils % (A) 1 %; HCT 32.5 % (39.0-53.0); HGB 10.6 gm/dL (13.0-17.5); Lymphocytes # (A) 0.5 k/uL (1.0-4.8); Lymphocytes % (A) 3 %; MCH 30.2 pg (25.0-35.0); MCHC 32.5 g/dL (31.0-37.0); MCV 92.9 fL (80.0-100.0); Mean Platelet Volume 7.2; Monocytes # (A) 0.4 k/uL (0-1.0); Monocytes % (A) 2 %; Neutrophils # (A) 16.5 k/uL (1.3-7.7); Neutrophils % (A) 94 %; Platelet Count 178 k/uL (150-450); RDW 14.7 % (11.5-15.5); WBC 17.6 k/uL (3.8-10.6)
[2018-05-02 08:14] LABS: ALT 28 U/L (21-72); AST 17 U/L (17-59); Albumin 3.2 g/dL (3.5-5.0); Alkaline Phosphatase 100 U/L (38-126); Amylase 34 U/L (30-110); Anion Gap 12 mmol/L; Blood Urea Nitrogen 97 mg/dL (9-20); Calcium 8.5 mg/dL (8.4-10.2); Carbon Dioxide 20 mmol/L (22-30); Chloride 107 mmol/L (98-107); Glucose 186 mg/dL (74-99); Lipase 63 U/L (23-300); Magnesium 2.6 mg/dL (1.6-2.3); Sodium 139 mmol/L (137-145); Total Bilirubin 0.4 mg/dL (0.2-1.3); Total Protein 6.5 g/dL (6.3-8.2)
[2018-05-02 08:32] LABS: Creatine Kinase MB 3.3 ng/mL (0.0-2.4); Troponin I 0.02 ng/mL (0.000-0.034)
[2018-05-02 08:33] LABS: Appearance,Urine Clear (Clear); Bacteria,Urine Rare /hpf; Bilirubin,Urine Negative (Negative); Blood,Urine Trace (Negative); Color,Urine Light Yellow; Glucose,Urine (UA) 3+ (Negative); Hyaline Casts,Urine 1 /lpf (0-2); Ketones,Urine Negative (Negative); Leukocyte Esterase,Urine Negative (Negative); Mucus,Urine Rare /hpf; Nitrite,Urine Negative (Negative); Protein,Urine Trace (Negative); RBC,Urine 2 /hpf (0-5); Specific Gravity,Urine 1.009 (1.001-1.035); Squamous Epithelial Cell,Urine <1 /hpf (0-4); Urobilinogen,Urine <2.0 mg/dL (<2.0); WBC,Urine 2 /hpf (0-5)
--- NOTE | 2018-05-02 08:50 | XR ---
EXAMINATION TYPE: XR chest 2V DATE OF EXAM: 05/02/2018 HISTORY: cough. REFERENCE: Previous study dated 08/04/2014. FINDINGS: There is a multilead pacing device in place on the left. The heart is mildly enlarged. Lungs are clear. Pleural spaces are clear. There is mild vascular conge stion and subtle interstitial change. IMPRESSION: FINDINGS CONSISTENT WITH MILD HEART FAILURE.
[2018-05-02] MEDS ORDERED: PIPERACILLIN-TAZOBACTAM 3.375 GM in SODIUM CHLORIDE 0.9% 100 ML IVPB STA (10:49)
[2018-05-02] MEDS ORDERED: NALOXONE 0.4 MG/ML 1 ML VIAL IV PRN (11:09)
[2018-05-02] MEDS ORDERED: ONDANSETRON 4 MG/2 ML VIAL IVP PRN (11:16)
[2018-05-02] MEDS ORDERED: ACETAMINOPHEN TAB 325 MG TAB PO PRN (11:16)
[2018-05-02] MEDS: IPRATROPIUM-ALBUTEROL 3 ML NEB INHALATION SCH ×3 (11:55→20:33)
[2018-05-02] MEDS ORDERED: IPRATROPIUM 0.5 MG/2.5 ML NEBU INHALATION SCH (12:00)
[2018-05-02] MEDS ORDERED: ALBUTEROL NEBULIZED 2.5 MG/3 ML INHALATION SCH (12:00)
[2018-05-02] MEDS: INSULIN ASPART 100 UNIT/ML 1 ML 10 ML VIAL SQ SCH ×3 (12:46→20:57)
[2018-05-02] MEDS: SODIUM CHLORIDE 0.9% 1,000 ML IV SCH ×2 (12:47→20:58)
[2018-05-02 13:06] LABS: Glucose,Whole Blood 101 mg/dL (75-99)
--- NOTE | 2018-05-02 14:31 | US ---
EXAMINATION TYPE: US renals and bladder DATE OF EXAM: 05/02/2018 COMPARISON: NONE CLINICAL HISTORY: ROGE. EXAM MEASUREMENTS: Right Kidney: 11.5 x 4.9 x 4.6 cm Left Kidney: 11.5 x 5.4 x 5.8 cm Technically difficult study due to overlying bowel gas, large abdomen. Right Kidney: cysts noted, largest possible septated cyst measuring 4.4 x 2.8 x 2.2cm Left Kidney: mild hydro, limited visualization of upper and lower pole. Bladder: not distended, not visualized There is no evidence for hydronephrosis at this point in time. No nephrolithiasis is seen. No dilan s are identified. The urinary bladder is anechoic. Bilateral ureteral jets are seen. IMPRESSION: Right-sided renal cortical cysts. Mild left-sided hydronephrosis. No evidence of solid renal mass.
[2018-05-02] MEDS: HEPARIN SODIUM,PORCINE 5,000 UNIT/ML 1 ML VIAL SQ SCH (16:38)
[2018-05-02 16:39] LABS: Glucose,Whole Blood 198 mg/dL (75-99)
[2018-05-02] MEDS: TAMSULOSIN 0.4 MG CAP.ER.24H PO SCH (17:21)
[2018-05-02] MEDS: INSULIN NPH 300 UNIT/3 ML VIAL SQ SCH (17:21)
[2018-05-02 20:45] LABS: Glucose,Whole Blood 241 mg/dL (75-99)
[2018-05-02] MEDS: PANTOPRAZOLE 40 MG/10 ML VIAL IV SCH (20:57)
[2018-05-02] MEDS: PIPERACILLIN-TAZOBACTAM 3.375 GM in SODIUM CHLORIDE 0.9% 100 ML IVPB SCH (20:58)
--- NOTE | 2018-05-02 23:11 | P.HPIM ---
History of Present Illness H&P Date: 05/02/18 Chief Complaint: ROGE/ Possibole gram negative pneumonia. 77 years old male patient of Dr. Venegas with past medical history of asthma, COPD, diabetes, hypertension, hypothyroidism, history of lymphoma status post chemotherapy and radiation, history of colitis, history of coronary artery disease status post CABG, history of sick sinus syndrome status post pacemaker in 2001 , patient was recently hospitalized at [facility] for urinary retention and had immediate relief of obstruction and dyspnea immediately after placing a Mcgarry catheter.patient ended-up getting discharged and he was doing well and he had followe dup with and but he ended up coming to the ER because of increased chills and fever with abdominal pain, was seen in the ER and was found to have ROGE and significant urinary retention with almost 1500 ml urine output and CXR showed possible basilar pneumonia possibly gram negative , so he was started on Levaquin and Zosyn and was admitted to the hospital for treatment. Review of Systems Constitutional: Reports chills, Reports fatigue, Reports fever, Reports weakness Eyes: denies blurred vision, denies bulging eye, denies decreased vision, denies diplopia Ears, nose, mouth and throat: Denies dysphagia, Denies sore throat Cardiovascular: Reports decreased exercise tolerance, Reports dyspnea on exertion, Reports shortness of breath, Denies chest pain, Denies syncope Respiratory: Reports cough, Reports cough with sputum, Denies congestion, Denies home oxygen, Denies sleep apnea, Denies snoring, Denies wheezing Gastrointestinal: Reports abdominal pain, Denies BRBPR, Denies change in bowel habits, Denies heartburn, Denies melena, Denies nausea, Denies vomiting Genitourinary: Reports dysuria, Reports urinary retention Musculoskeletal: Reports atrophy, Reports gait dysfunction Musculoskeletal: absent: ankle pain, ankle stiffness, ankle swelling, elbow pain , elbow stiffness, elbow swelling, foot pain, foot stiffness, foot swelling, hand pain, hand stiffness, hand swelling, hip pain, hip stiffness, hip swelling , knee pain, knee stiffness, knee swelling, shoulder pain, shoulder stiffness, shoulder swelling, wrist pain, wrist stiffness, wrist swelling Integumentary: Denies pruritus, Denies rash Neurological: Denies numbness, Denies weakness Psychiatric: Denies anxiety, Denies depression Endocrine: Denies fatigue, Denies weight change Past Medical History Past Medical History: Asthma, Coronary Artery Disease (CAD), Cancer, Diabetes Mellitus, Hyperlipidemia, Hypertension, Prostate Disorder, Thyroid Disorder Additional Past Medical History / Comment(s): lymphoma, chemotherapy, radiation, - 06/2011 colitis History of Any Multi-Drug Resistant Organisms: None Reported Past Surgical History: Coronary Bypass/CABG, Orthopedic Surgery, Pacemaker Additional Past Surgical History / Comment(s): Lt ankle - plate. sinus surgery s/t cancer Past Anesthesia/Blood Transfusion Reactions: No Reported Reaction Date of Last Stent Placement:: 2001 Type of Cardiac Device: Permanent Pacemaker Device Placement Date:: 2001 Past Psychological History: No Psychological Hx Reported Smoking Status: Former smoker (patient used to smoke PPD for 7-8 years and quit 1967.) Past Alcohol Use History: None Reported Additional Past Alcohol Use History / Comment(s): Patient quit smoking in 1967. He denies any medical marijuana, marijuana, street drug or alcohol use. Past Drug Use History: None Reported - Past Family History Brother(s) Additional Family Medical History / Comment(s): Patient has 3 brothers and one has history of coronary artery disease. Sister(s) Additional Family Medical History / Comment(s): Patient has one sister with history of SVT and AVR. Son(s) Additional Family Medical History / Comment(s): Patient has 2 sons and one has history of kidney stones. Patient does not have any daughters. Patient has a grandson treated for SVT. Father Family Medical History: No Reported History Additional Family Medical History / Comment(s): Father at age 72 with history of coronary artery disease and CABG Mother Family Medical History: No Reported History Additional Family Medical History / Comment(s): Mother at age 93 with history of coronary artery disease. Medications and Allergies Home Medications Medication Instructions Recorded Confirmed Type Atenolol [Tenormin] 25 mg PO DAILY 08/04/14 05/02/18 History Furosemide [Lasix] 40 mg PO BID 08/04/14 05/02/18 History Insulin NPH Human Isophane 20 unit SQ AC-BRKFST 08/04/14 05/02/18 History [NovoLIN N] Insulin Regular, Human [NovoLIN R] See Protocol SQ AC-TID 08/04/14 05/02/18 History Levothyroxine Sodium [Synthroid] 100 mcg PO DAILY 08/04/14 05/02/18 History Lisinopril [Prinivil] 10 mg PO DAILY 08/04/14 05/02/18 History Potassium Chloride [Klor-Con 20] 20 meq PO DAILY 08/04/14 05/02/18 History Ranitidine HCl 150 mg PO DAILY 08/04/14 05/02/18 History glipiZIDE [Glucotrol XL] 5 mg PO DAILY 08/04/14 05/02/18 History Albuterol Inhaler [Ventolin Hfa 1 - 2 puff INHALATION RT-Q4H PRN 11/05/16 History Inhaler] Albuterol Nebulized [Ventolin 2.5 mg INHALATION RT-QID 11/05/16 05/02/18 History Nebulized] Insulin NPH Human Isophane 12 unit SQ AC-SUPPER 11/05/16 05/02/18 History [Humulin N] Ipratropium Nebulized [Atrovent 0.05 mg INHALATION RT-QID 11/05/16 05/02/18 History Nebulized] Verapamil HCl [Verapamil ER] 240 mg PO DAILY 11/05/16 05/02/18 History Vit C/E/Zn/Coppr/Lutein/Zeaxan 1 cap PO BID 04/22/18 05/02/18 History [Preservision Areds 2 Softgel] Hydrocortisone Suppository 25 mg RC BID #10 supp 04/23/18 05/02/18 Rx [Anusol-Hc] Polyethylene Glycol 3350 [Miralax] 17 gm PO DAILY #7 packet 04/23/18 05/02/18 Rx Tamsulosin HCl [Flomax] 0.4 mg PO AC-SUPPER #30 capsule 04/23/18 05/02/18 Rx Allergies Allergy/AdvReac Type Severity Reaction Status Date / Time No Known Allergies Allergy Verified 05/02/18 12:15 Physical Exam Vitals: Vital Signs Temp Pulse Resp BP Pulse Ox 05/02/18 11:00 97.5 F L 60 20 118/48 100 05/02/18 10:00 62 18 124/55 92 L 05/02/18 09:00 66 20 135/52 94 L 05/02/18 08:00 70 20 145/54 95 05/02/18 07:50 99.8 F H 05/02/18 07:22 96 05/02/18 07:19 99.2 F 72 16 135/58 95 Intake and Output 05/01/18 05/02/18 05/02/18 22:59 06:59 14:59 Output Total 1405 Balance -1405 Output: Urine 800 Uretheral (Mcgarry) 800 Post Void Residual 605 Other: Weight 104.326 kg - Constitutional General appearance: average body habitus, mild distress - EENT Eyes: anicteric sclerae, EOMI, PERRLA, no ptosis, no scleral icterus, normal appearance ENT: hard of hearing, NA/AT, normal oropharynx Ears: bilateral: normal - Neck Neck: no lymphadenopathy, normal ROM, no rigidity, no stridor, no thyromegaly Carotids: bilateral: upstroke delayed - Respiratory Respiratory: bilateral: diminished, prolonged expiration, negative: dullness, rales, rhonchi, wheezing - Cardiovascular Rhythm: regular Heart sounds: normal: S1, S2 Abnormal Heart Sounds: systolic murmur - Gastrointestinal General gastrointestinal: normal bowel sounds, soft, tenderness (left lower quadrant) - Integumentary Integumentary: normal, normal turgor (there sever Xerosis of both legs with thick sloughing skin.) - Neurologic Neurologic: CNII-XII intact - Musculoskeletal Musculoskeletal: gait normal, generalized weakness - Psychiatric Psychiatric: A&O x's 3, appropriate affect, intact judgment & insight Results CBC & Chem 7: 05/02/18 07:44 05/02/18 07:44 Labs: Abnormal Lab Results - Last 24 Hours (Table) 05/02/18 05/02/18 05/02/18 Range/Units 07:44 07:44 07:44 WBC 17.6 H (3.8-10.6) k/uL RBC 3.50 L (4.30-5.90) m/uL Hgb 10.6 L (13.0-17.5) gm/dL Hct 32.5 L (39.0-53.0) % Neutrophils # 16.5 H (1.3-7.7) k/uL Lymphocytes # 0.5 L (1.0-4.8) k/uL Carbon Dioxide 20 L (22-30) mmol/L BUN 97 H (9-20) mg/dL Creatinine 3.72 H (0.66-1.25) mg/dL Glucose 186 H (74-99) mg/dL Plasma Lactic Acid Juancho (0.7-2.0) mmol/L Magnesium 2.6 H (1.6-2.3) mg/dL CK-MB (CK-2) 3.3 H (0.0-2.4) ng/mL Albumin 3.2 L (3.5-5.0) g/dL Urine Protein (Negative) Urine Glucose (UA) (Negative) Urine Blood (Negative) Urine Bacteria (None) /hpf Urine Mucus (None) /hpf 05/02/18 05/02/18 Range/Units 07:44 08:13 WBC (3.8-10.6) k/uL RBC (4.30-5.90) m/uL Hgb (13.0-17.5) gm/dL Hct (39.0-53.0) % Neutrophils # (1.3-7.7) k/uL Lymphocytes # (1.0-4.8) k/uL Carbon Dioxide (22-30) mmol/L BUN (9-20) mg/dL Creatinine (0.66-1.25) mg/dL Glucose (74-99) mg/dL Plasma Lactic Acid Juancho 2.3 H* (0.7-2.0) mmol/L Magnesium (1.6-2.3) mg/dL CK-MB (CK-2) (0.0-2.4) ng/mL Albumin (3.5-5.0) g/dL Urine Protein Trace H (Negative) Urine Glucose (UA) 3+ H (Negative) Urine Blood Trace H (Negative) Urine Bacteria Rare H (None) /hpf Urine Mucus Rare H (None) /hpf Thrombosis Risk Factor Assmnt - DVT/VTE Prophylaxis DVT/VTE Prophylaxis: Pharmacologic Prophylaxis ordered, Mechanical Prophylaxis ordered - Choose All That Apply Each Factor Represents 1 point: Abnormal pulmonary function (COPD), Obesity ( BMI >25) Each Risk Factor Represents 3 Points: Age 75 years or older Thrombosis Risk Factor Assessment Total Risk Factor Score: 5 Thrombosis Risk Factor Assessment Level: High Risk Assessment and Plan Assessment: Assessment and Plan: 1. Acute kidney injury due to obstructive uropathy.we will place mcgarry catheter and will continue with IVF and flomax 0.4 mg orally daily and will check US of the kidneys and bladder. 2. Possible gram negative pneumonia. we will continue with Levaquin and Zosyn , we will continue with supportive care, and Neb Rx . 3. Diabetes mellitus type 2 . we will continue with Novolin 70/30 and glipizide and will continue with BGM ACHS. 4. Hypertension and hypertensive cardiovascular disease. will continue with Lisinopril 10 mg orally daily, Atenoll 25 mg orally daily and [id number] mg orally daily. 5. Hyperlipidemia. we will continue with low cholesterol diet. 6. CAD post CABG. we will continue with Atenolol 25 mg orally daily and ASA 81 mg orally daily. 7. BPH. we will continue with Flomax and Mcgarry catheter. 8.Hypothyroidism. we will continue with synthroid 100 mcg orally daily. 9. Xerosis of both legs and poor feet hygiene . we will start Ammonium Lactate 12 % bid and will need Podiatry consult., 10. COPD. we will continue with Neb Rx and prednisone and supportive care. 11. DVT prophylaxis. we will continue with Heparin 5000 units sq q 8 h. 12. GI prophylaxis. we will continue withnProtonix 40 mg IVP daily. 13. Admits to inpatient . estimated length of stay 2 midnights. 14. Full code.
[2018-05-03] MEDS: HEPARIN SODIUM,PORCINE 5,000 UNIT/ML 1 ML VIAL SQ SCH ×4 (00:23→23:16)
[2018-05-03] MEDS: IPRATROPIUM-ALBUTEROL 3 ML NEB INHALATION PRN (01:50)
[2018-05-03] MEDS: SODIUM CHLORIDE 0.9% 1,000 ML IV SCH ×3 (02:21→20:45)
[2018-05-03] MEDS: LEVOTHYROXINE 100 MCG TAB PO SCH (05:55)
[2018-05-03 07:06] LABS: Glucose,Whole Blood 104 mg/dL (75-99)
[2018-05-03] MEDS: IPRATROPIUM-ALBUTEROL 3 ML NEB INHALATION SCH ×4 (07:13→20:42)
[2018-05-03 07:45] LABS: Albumin 2.4 g/dL (3.5-5.0); Calcium 7.4 mg/dL (8.4-10.2); Magnesium 2.5 mg/dL (1.6-2.3); Potassium 4.4 mmol/L (3.5-5.1); Total Bilirubin 0.2 mg/dL (0.2-1.3)
[2018-05-03 07:50] LABS: Basophils % (A) 0 %; Eosinophils # (A) 0.2 k/uL (0-0.7); Eosinophils % (A) 2 %; Lymphocytes # (A) 1.1 k/uL (1.0-4.8); Lymphocytes % (A) 10 %; MCH 30.9 pg (25.0-35.0); MCHC 32.6 g/dL (31.0-37.0); MCV 94.9 fL (80.0-100.0); Mean Platelet Volume 7.1; Monocytes # (A) 0.4 k/uL (0-1.0); Monocytes % (A) 3 %; Neutrophils # (A) 9.7 k/uL (1.3-7.7); Neutrophils % (A) 84 %; Platelet Count 139 k/uL (150-450); RBC 2.85 m/uL (4.30-5.90); WBC 11.6 k/uL (3.8-10.6)
[2018-05-03 07:54] LABS: HGB 8.8 gm/dL (13.0-17.5)
[2018-05-03] MEDS ORDERED: PANTOPRAZOLE 40 MG/10 ML VIAL IV SCH (09:00)
[2018-05-03] MEDS ORDERED: LISINOPRIL 10 MG TAB PO SCH (09:00)
[2018-05-03] MEDS: INSULIN ASPART 100 UNIT/ML 1 ML 10 ML VIAL SQ SCH ×4 (09:02→20:44)
[2018-05-03] MEDS: VERAPAMIL SR 240 MG TABLET.ER PO SCH (09:14)
[2018-05-03] MEDS: ATENOLOL 25 MG TAB PO SCH (09:14)
[2018-05-03] MEDS: POTASSIUM CHLORIDE ER 20 MEQ TAB.ER PO SCH (09:14)
[2018-05-03] MEDS: predniSONE 20 MG TAB PO SCH (09:14)
[2018-05-03] MEDS: INSULIN NPH 300 UNIT/3 ML VIAL SQ SCH ×2 (09:15→17:33)
[2018-05-03] MEDS: PANTOPRAZOLE 40 MG/10 ML VIAL IV SCH (09:15)
[2018-05-03] MEDS: POLYETHYLENE GLYCOL 3350 17 GM POWD.PACK PO SCH (09:15)
[2018-05-03] MEDS: AMMONIUM LACTATE 12% CREAM 140 GM TUBE TOPICAL SCH ×2 (09:16→20:48)
[2018-05-03 10:07] VITALS: BMI 33.0
[2018-05-03 11:25] LABS: Glucose,Whole Blood 258 mg/dL (75-99)
[2018-05-03] MEDS: PIPERACILLIN-TAZOBACTAM 3.375 GM in SODIUM CHLORIDE 0.9% 100 ML IVPB SCH ×2 (11:51→20:44)
[2018-05-03] MEDS ORDERED: LEVOFLOXACIN 250MG-D5W PMX 250 MG in DEXTROSE/WATER 1 50ML.BAG IVPB SCH (12:00)
[2018-05-03] MEDS ORDERED: LEVOFLOXACIN 500MG-D5W PMX 500 MG in DEXTROSE/WATER 1 100ML.BAG IVPB ONE (12:00)
--- NOTE | 2018-05-03 13:37 | P.PN ---
Subjective Progress Note Date: 05/03/18 77 years old male patient of Dr. Venegas with past medical history of asthma, COPD, diabetes, hypertension, hypothyroidism, history of lymphoma status post chemotherapy and radiation, history of colitis, history of coronary artery disease status post CABG, history of sick sinus syndrome status post pacemaker in 2001 , patient was recently hospitalized at [facility] for urinary retention and had immediate relief of obstruction and dyspnea immediately after placing a Mcgarry catheter.patient ended-up getting discharged and he was doing well and he had followe dup with and but he ended up coming to the ER because of increased chills and fever with abdominal pain, was seen in the ER and was found to have ROGE and significant urinary retention with almost 1500 ml urine output and CXR showed possible basilar pneumonia possibly gram negative , so he was started on Levaquin and Zosyn and was admitted to the hospital for treatment. 05/03: Repeat lab work shows a hemoglobin of 8.8, white count of 11.6, CO2 18, BUN 77 creatinine 3.45. Blood sugars are running in the low 200s. Renal ultrasound reveals right-sided renal cortical cyst. Mild left-sided hydronephrosis. No evidence of solid renal mass. Consult with Dr. Márquez will be added. Patient is known to Dr. Márquez in the past. Patient states that his breathing is improved today. He still continues to have little cough. He is using Lac-Hydrin with improvement of his dry skin. Consult added for Dr. Redding to trim patient's nails. IV fluids will be decreased to 75 mL per hour. Review of Systems Constitutional: Reports chills, Reports fatigue, Reports fever, Reports weakness Eyes: denies blurred vision, denies bulging eye, denies decreased vision, denies diplopia Ears, nose, mouth and throat: Denies dysphagia, Denies sore throat Cardiovascular: Reports decreased exercise tolerance, Reports dyspnea on exertion, denies shortness of breath, Denies chest pain, Denies syncope Respiratory: Reports cough, Reports cough with sputum, Denies congestion, Denies home oxygen, Denies sleep apnea, Denies snoring, Denies wheezing Gastrointestinal: Reports abdominal pain, Denies BRBPR, Denies change in bowel habits, Denies heartburn, Denies melena, Denies nausea, Denies vomiting Genitourinary: Reports dysuria, Reports urinary retention Musculoskeletal: Reports atrophy, Reports gait dysfunction Musculoskeletal: absent: ankle pain, ankle stiffness, ankle swelling, elbow pain , elbow stiffness, elbow swelling, foot pain, foot stiffness, foot swelling, hand pain, hand stiffness, hand swelling, hip pain, hip stiffness, hip swelling , knee pain, knee stiffness, knee swelling, shoulder pain, shoulder stiffness, shoulder swelling, wrist pain, wrist stiffness, wrist swelling Integumentary: Denies pruritus, Denies rash Neurological: Denies numbness, Denies weakness Psychiatric: Denies anxiety, Denies depression Endocrine: Denies fatigue, Denies weight change Objective - Vital Signs Vital signs: Vital Signs Temp 97.3 F L 05/03/18 05:00 Pulse 63 05/03/18 08:00 Resp 18 05/03/18 08:00 BP 129/63 05/03/18 05:00 Pulse Ox 99 05/03/18 05:00 Intake & Output 05/02/18 05/03/18 05/03/18 18:59 06:59 18:59 Intake Total 150 2200 Output Total 1405 950 200 Balance -1255 1250 -200 Weight 104.326 kg 104.326 kg Intake: Intake, IV Titration 150 1450 Amount Piperacillin-Tazobactam 3 100 .375 gm In Sodium Chloride 0.9% 100 ml @ 25 mls/hr IVPB Q12HR MELISA Rx #:[id number] Sodium Chloride 0.9% 1, 150 1350 000 ml @ 150 mls/hr IV . Q6H40M MELISA Rx#:[id number] Oral 750 Output: Urine 800 950 200 Uretheral (Mcgarry) 800 950 200 Post Void Residual 605 Other: Voiding Method Indwelling Catheter Indwelling Catheter Indwelling Catheter - Exam General appearance: average body habitus, mild distress - EENT Eyes: anicteric sclerae, EOMI, PERRLA, no ptosis, no scleral icterus, normal appearance ENT: hard of hearing, NA/AT, normal oropharynx Ears: bilateral: normal - Neck Neck: no lymphadenopathy, normal ROM, no rigidity, no stridor, no thyromegaly Carotids: bilateral: upstroke delayed - Respiratory Respiratory: bilateral: diminished, prolonged expiration, negative: dullness, rales, rhonchi, wheezing - Cardiovascular Rhythm: regular Heart sounds: normal: S1, S2 Abnormal Heart Sounds: systolic murmur - Gastrointestinal General gastrointestinal: normal bowel sounds, soft, tenderness (left lower quadrant) - Integumentary Integumentary: normal, normal turgor (there sever Xerosis of both legs with thick sloughing skin.) - Neurologic Neurologic: CNII-XII intact - Musculoskeletal Musculoskeletal: gait normal, generalized weakness - Psychiatric Psychiatric: A&O x's 3, appropriate affect, intact judgment & insight - Labs CBC & Chem 7: 05/03/18 06:56 05/03/18 06:56 Labs: Abnormal Lab Results - Last 24 Hours (Table) 05/02/18 05/02/18 05/02/18 Range/Units 12:39 16:36 20:43 WBC (3.8-10.6) k/uL RBC (4.30-5.90) m/uL Hgb (13.0-17.5) gm/dL Hct (39.0-53.0) % Plt Count (150-450) k/uL Neutrophils # (1.3-7.7) k/uL Chloride (98-107) mmol/L Carbon Dioxide (22-30) mmol/L BUN (9-20) mg/dL Creatinine (0.66-1.25) mg/dL POC Glucose (mg/dL) 101 H 198 H 241 H (75-99) mg/dL Calcium (8.4-10.2) mg/dL Magnesium (1.6-2.3) mg/dL Total Protein (6.3-8.2) g/dL Albumin (3.5-5.0) g/dL 05/03/1818 05/03/18 Range/Units 06:56 06:56 07:05 WBC 11.6 H (3.8-10.6) k/uL RBC 2.85 L (4.30-5.90) m/uL Hgb 8.8 L D (13.0-17.5) gm/dL Hct 27.0 L (39.0-53.0) % Plt Count 139 L (150-450) k/uL Neutrophils # 9.7 H (1.3-7.7) k/uL Chloride 114 H (98-107) mmol/L Carbon Dioxide 18 L (22-30) mmol/L BUN 77 H (9-20) mg/dL Creatinine 3.45 H (0.66-1.25) mg/dL POC Glucose (mg/dL) 104 H (75-99) mg/dL Calcium 7.4 L (8.4-10.2) mg/dL Magnesium 2.5 H (1.6-2.3) mg/dL Total Protein 5.0 L (6.3-8.2) g/dL Albumin 2.4 L (3.5-5.0) g/dL 05/03/18 Range/Units 11:23 WBC (3.8-10.6) k/uL RBC (4.30-5.90) m/uL Hgb (13.0-17.5) gm/dL Hct (39.0-53.0) % Plt Count (150-450) k/uL Neutrophils # (1.3-7.7) k/uL Chloride (98-107) mmol/L Carbon Dioxide (22-30) mmol/L BUN (9-20) mg/dL Creatinine (0.66-1.25) mg/dL POC Glucose (mg/dL) 258 H (75-99) mg/dL Calcium (8.4-10.2) mg/dL Magnesium (1.6-2.3) mg/dL Total Protein (6.3-8.2) g/dL Albumin (3.5-5.0) g/dL Microbiology - Last 24 Hours (Table) 05/02/18 07:44 Blood Culture Gram Stain - Preliminary Blood 05/02/18 07:44 Blood Culture - Final Blood Assessment and Plan Plan: 1. Acute kidney injury due to obstructive uropathy. continue mcgarry catheter and will continue with IVF decreased to 75 mL per hour and flomax 0.4 mg orally daily. US of the kidneys and bladder as above. Consult with Dr. Márquez regarding mild hydronephrosis. 2. Possible gram negative pneumonia. we will continue with Levaquin and Zosyn , we will continue with supportive care, and Neb Rx . 3. Diabetes mellitus type 2 . we will continue with Novolin 70/30 and glipizide and will continue with BGM ACHS. 4. Hypertension and hypertensive cardiovascular disease. will continue with Lisinopril 10 mg orally daily, Atenoll 25 mg orally daily and [id number] mg orally daily. 5. Hyperlipidemia. we will continue with low cholesterol diet. 6. CAD post CABG. we will continue with Atenolol 25 mg orally daily and ASA 81 mg orally daily. 7. BPH. we will continue with Flomax and Mcgarry catheter. 8.Hypothyroidism. we will continue with synthroid 100 mcg orally daily. 9. Xerosis of both legs and poor feet hygiene . we will start Ammonium Lactate 12 % bid and will need Podiatry consult., 10. COPD. we will continue with Neb Rx and prednisone and supportive care. 11. DVT prophylaxis. we will continue with Heparin 5000 units sq q 8 h. 12. GI prophylaxis. we will continue withnProtonix 40 mg IVP daily. 13. Onychomycosis. Consult with Dr. Connell to trim nails. 14. Full code. Discharge plan: To be determined Impression and plan of care have been directed as dictated by the signing physician. Radha Loco nurse practitioner acting as scribe for signing physician.
[2018-05-03 17:14] LABS: Glucose,Whole Blood 315 mg/dL (75-99)
[2018-05-03] MEDS: TAMSULOSIN 0.4 MG CAP.ER.24H PO SCH (17:34)
--- NOTE | 2018-05-03 19:36 | CONS ---
CONSULTATION REASON FOR CONSULT: Renal failure. HISTORY OF PRESENT ILLNESS: Patient is a 77-year-old male who has a past history of COPD, hypothyroidism, history of lymphoma, status post chemotherapy, and coronary artery disease. Patient was admitted to the hospital with complaints of increased weakness and not feeling well. Patient also presented with abdominal pain. Patient had a temperature of 100.9 when he came in and his blood sugar was elevated at 350. Blood pressure was on the lower side with systolic around 95 mmHg. Patient was on lisinopril at home. Currently patient is maintained on IV fluids. He states he is feeling slightly better. Serum creatinine on admission was 3.72 mg/dL. It is down to 3.45 today. Review of previous labs shows creatinine of 1.43 on 04/22/2018. PAST MEDICAL HISTORY: Significant for: 1. COPD. 2. Hypertension. 3. Coronary artery disease, status post CABG. 4. Sick sinus syndrome, status post pacemaker placement. 5. Urine retention on his last hospitalization. Patient was evaluated by Urology. 6. Hypothyroidism. 7. Lymphoma, status post chemotherapy. 8. History of radiation therapy. 9. History of colitis. PAST SURGICAL HISTORY: 1. Coronary artery bypass surgery. 2. Pacemaker placement. 3. Left ankle surgery. 4. Sinus surgery. SOCIAL HISTORY: Patient is a former smoker. No history of drug abuse or alcohol abuse. PHYSICAL EXAMINATION: Patient is comfortable, awake. He is not in any acute distress. Blood pressure this morning was 105/51, heart rate of 65 per minute. Patient is afebrile. EXAMINATION OF THE HEART: S1, S2. EXAMINATION OF LUNGS: Bilateral breath sounds are heard. ABDOMEN: Soft, non-tender. Examination of lower extremities shows no significant edema. FAGOT HEATER exam is 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. LABS: Sodium 139, potassium 4.4, chloride 114. CO2 is 18, BUN 77, serum creatinine 3.45, hemoglobin 8.8 g/dL. UA this admission shows 3+ glucose, trace protein, bacteria rare, blood trace. ASSESSMENT: 1. Acute kidney injury, mostly prerenal, associated with hypoperfusion in a setting of use of GISELE inhibitors. The lisinopril is currently on hold. Patient is maintained on IV fluids, which we will continue for now. Repeat labs in a.m. and continue to avoid nephrotoxic agents. Ultrasound done this admission shows right renal cyst. Mild left hydronephrosis was seen. Both kidneys are 11.[address] Patient had a CT scan previously in October with evidence of right obstructing calculus with right hydronephrosis and hydroureter. This was in October. 2. Metabolic acidosis secondary to renal failure. Add sodium bicarb if not improved. 3. Hypothyroidism. 4. Chronic kidney disease with previous creatinine about 1.4 in March of 2018. Etiology is likely nephrosclerosis and diabetic nephropathy, NKF stage III. 5. History of nephrolithiasis with previous history of right hydronephrosis in October of 2017. 6. Urine retention with indwelling Mcgovern catheter which was placed on last admission. 7. Strep group B bacteremia, one out of two blood cultures. PLAN: Continue IV fluids. Continue to hold off on GISELE inhibitors. Add oral sodium bicarb. Avoid hypotension. Thank you for this consultation. We will continue to follow the patient with you during his hospitalization. MMODL / IJN: [id number] /
[2018-05-03 20:39] LABS: Glucose,Whole Blood 406 mg/dL (75-99)
[2018-05-03] MEDS: SODIUM BICARBONATE TAB 650 MG TAB PO SCH (20:44)
[2018-05-04] MEDS: IPRATROPIUM-ALBUTEROL 3 ML NEB INHALATION PRN (00:26)
[2018-05-04 02:44] LABS: Glucose,Whole Blood 328 mg/dL (75-99)
[2018-05-04] MEDS: INSULIN ASPART 100 UNIT/ML 1 ML 10 ML VIAL SQ SCH ×5 (02:48→20:41)
[2018-05-04] MEDS ORDERED: SODIUM CHLORIDE 0.45% 1,000 ML IV SCH (06:15)
[2018-05-04] MEDS: SODIUM CHLORIDE 0.9% 1,000 ML IV SCH (06:19)
[2018-05-04] MEDS: LEVOTHYROXINE 100 MCG TAB PO SCH (06:21)
[2018-05-04 07:03] LABS: Glucose,Whole Blood 275 mg/dL (75-99)
[2018-05-04] MEDS: IPRATROPIUM-ALBUTEROL 3 ML NEB INHALATION SCH ×4 (07:39→19:50)
[2018-05-04] MEDS: VERAPAMIL SR 240 MG TABLET.ER PO SCH (08:13)
[2018-05-04] MEDS: SODIUM BICARBONATE TAB 650 MG TAB PO SCH ×2 (08:13→20:40)
[2018-05-04] MEDS: HEPARIN SODIUM,PORCINE 5,000 UNIT/ML 1 ML VIAL SQ SCH ×2 (08:13→16:03)
[2018-05-04] MEDS: ATENOLOL 25 MG TAB PO SCH (08:13)
[2018-05-04] MEDS: PANTOPRAZOLE 40 MG/10 ML VIAL IV SCH (08:13)
[2018-05-04] MEDS: POTASSIUM CHLORIDE ER 20 MEQ TAB.ER PO SCH (08:13)
[2018-05-04] MEDS: predniSONE 20 MG TAB PO SCH (08:13)
[2018-05-04] MEDS: AMMONIUM LACTATE 12% CREAM 140 GM TUBE TOPICAL SCH ×2 (08:14→20:43)
[2018-05-04] MEDS: INSULIN NPH 300 UNIT/3 ML VIAL SQ SCH ×2 (08:14→17:53)
[2018-05-04] MEDS: POLYETHYLENE GLYCOL 3350 17 GM POWD.PACK PO SCH (08:15)
[2018-05-04] MEDS: PIPERACILLIN-TAZOBACTAM 3.375 GM in SODIUM CHLORIDE 0.9% 100 ML IVPB SCH (08:24)
[2018-05-04 11:06] LABS: Glucose,Whole Blood 259 mg/dL (75-99)
[2018-05-04 11:54] LABS: Potassium 5.3 mmol/L (3.5-5.1)
[2018-05-04] MEDS ORDERED: NITROGLYCERIN SL TABS 0.4 MG TAB SUBLINGUAL PRN (12:05)
[2018-05-04] MEDS ORDERED: NITROGLYCERIN SL TABS 0.4 MG TAB SUBLINGUAL ONE (12:07)
[2018-05-04 12:37] LABS: Glucose,Whole Blood 265 mg/dL (75-99)
--- NOTE | 2018-05-04 14:12 | P.PN ---
Subjective Progress Note Date: 05/04/18 77 years old male patient of Dr. Venegas with past medical history of asthma, COPD, diabetes, hypertension, hypothyroidism, history of lymphoma status post chemotherapy and radiation, history of colitis, history of coronary artery disease status post CABG, history of sick sinus syndrome status post pacemaker in 2001 , patient was recently hospitalized at [facility] for urinary retention and had immediate relief of obstruction and dyspnea immediately after placing a Mcgarry catheter.patient ended-up getting discharged and he was doing well and he had followe dup with and but he ended up coming to the ER because of increased chills and fever with abdominal pain, was seen in the ER and was found to have ROGE and significant urinary retention with almost 1500 ml urine output and CXR showed possible basilar pneumonia possibly gram negative , so he was started on Levaquin and Zosyn and was admitted to the hospital for treatment. 05/03: Repeat lab work shows a hemoglobin of 8.8, white count of 11.6, CO2 18, BUN 77 creatinine 3.45. Blood sugars are running in the low 200s. Renal ultrasound reveals right-sided renal cortical cyst. Mild left-sided hydronephrosis. No evidence of solid renal mass. Consult with Dr. Márquez will be added. Patient is known to Dr. Márquez in the past. Patient states that his breathing is improved today. He still continues to have little cough. He is using Lac-Hydrin with improvement of his dry skin. Consult added for Dr. Redding to trim patient's nails. IV fluids will be decreased to 75 mL per hour. 05/04: Patient has been seen by Dr. Murry for acute kidney injury with metabolic acidosis recommendations to maintain on IV fluids, sodium bicarb. Patient states that he is feeling much better today. He denies any abdominal pain. No chest pain. Blood culture is positive for strep echo lacteal. Patient gives history that about 1-2 months ago he had to have a cracked tooth and was on antibiotics. Consult with Dr. Castillo added, echocardiogram and repeat blood culture ordered. Patient has had good urine output and Mcgarry catheter remains in place. Physical therapy has recommended home with homecare. VNA has been arranged. After patient had echocardiogram completed, he went into a sinus tachycardia 130s with chest pain rating down his arm. He did receive 2 nitroglycerin and cardiology consult was requested. Patient did convert to a normal sinus rhythm and chest pain was resolved. Review of Systems Constitutional: Denies chills, Reports fatigue, Reports fever, Reports weakness Eyes: denies blurred vision, denies bulging eye, denies decreased vision, denies diplopia Ears, nose, mouth and throat: Denies dysphagia, Denies sore throat Cardiovascular: Reports decreased exercise tolerance, Reports dyspnea on exertion, denies shortness of breath, Denies chest pain, Denies syncope Respiratory: Reports cough, Reports cough with sputum, Denies congestion, Denies home oxygen, Denies sleep apnea, Denies snoring, Denies wheezing Gastrointestinal: Reports abdominal pain, Denies BRBPR, Denies change in bowel habits, Denies heartburn, Denies melena, Denies nausea, Denies vomiting Genitourinary: Reports dysuria, Reports urinary retention Musculoskeletal: Reports atrophy, Reports gait dysfunction Musculoskeletal: absent: ankle pain, ankle stiffness, ankle swelling, elbow pain , elbow stiffness, elbow swelling, foot pain, foot stiffness, foot swelling, hand pain, hand stiffness, hand swelling, hip pain, hip stiffness, hip swelling , knee pain, knee stiffness, knee swelling, shoulder pain, shoulder stiffness, shoulder swelling, wrist pain, wrist stiffness, wrist swelling Integumentary: Denies pruritus, Denies rash Neurological: Denies numbness, Denies weakness Psychiatric: Denies anxiety, Denies depression Endocrine: Denies fatigue, Denies weight change Objective - Vital Signs Vital signs: Vital Signs Temp 97.4 F L 05/04/18 05:00 Pulse 72 05/04/18 07:36 Resp 16 05/04/18 05:00 BP 147/65 05/04/18 05:00 Pulse Ox 94 L 05/04/18 05:00 Intake & Output 05/03/18 05/04/18 05/04/18 18:59 06:59 18:59 Intake Total 240 2070 Output Total 900 750 Balance -660 1320 Weight 104.326 kg Intake: Intake, IV Titration 300 Amount Sodium Chloride 0.9% 1, 300 000 ml @ 75 mls/hr IV . [id number] MELISA Rx#:[id number] Oral 240 1770 Output: Urine 900 750 Uretheral (Mcgarry) 400 750 Other: Voiding Method Indwelling Catheter Indwelling Catheter Indwelling Catheter # Voids 2 # Bowel Movements 1 - Exam General appearance: average body habitus, no distress, patient sitting up in a chair. - EENT Eyes: anicteric sclerae, EOMI, PERRLA, no ptosis, no scleral icterus, normal appearance ENT: hard of hearing, NA/AT, normal oropharynx Ears: bilateral: normal - Neck Neck: no lymphadenopathy, normal ROM, no rigidity, no stridor, no thyromegaly Carotids: bilateral: upstroke delayed - Respiratory Respiratory: bilateral: diminished, prolonged expiration, negative: dullness, rales, rhonchi, wheezing - Cardiovascular Rhythm: regular Heart sounds: normal: S1, S2 Abnormal Heart Sounds: systolic murmur - Gastrointestinal General gastrointestinal: normal bowel sounds, soft, tenderness (left lower quadrant), Mcgarry catheter draining clear darren urine. - Integumentary Integumentary: normal, normal turgor (there sever Xerosis of both legs with thick sloughing skin.) - Neurologic Neurologic: CNII-XII intact - Musculoskeletal Musculoskeletal: gait normal, generalized weakness - Psychiatric Psychiatric: A&O x's 3, appropriate affect, intact judgment & insight - Labs CBC & Chem 7: 05/03/18 06:56 05/04/18 11:08 Labs: Abnormal Lab Results - Last 24 Hours (Table) 05/03/18 05/03/18 05/03/18 Range/Units 11:23 17:13 20:37 POC Glucose (mg/dL) 258 H 315 H 406 H (75-99) mg/dL 05/04/18 05/04/18 Range/Units 02:42 07:01 POC Glucose (mg/dL) 328 H 275 H (75-99) mg/dL Microbiology - Last 24 Hours (Table) 05/02/18 07:44 Blood Culture Gram Stain - Final Blood Blood Culture - Final Strep agalactiae - (group b) Assessment and Plan Plan: 1. Acute kidney injury with metabolic acidosis due to obstructive uropathy. continue mcgarry catheter and will continue with IVF decreased to 75 mL per hour and flomax 0.4 mg orally daily. US of the kidneys and bladder as above. Consult with Dr. Márquez regarding mild hydronephrosis. Consult with Dr. Murry appreciated. Sodium bicarb started. 2. Possible gram negative pneumonia. we will continue with Levaquin and Zosyn , we will continue with supportive care, and Neb Rx . 3. Diabetes mellitus type 2 . we will continue with Novolin 70/30 and glipizide and will continue with BGM ACHS. 4. Hypertension and hypertensive cardiovascular disease. will continue with Lisinopril 10 mg orally daily, Atenoll 25 mg orally daily and [id number] mg orally daily. 5. Hyperlipidemia. we will continue with low cholesterol diet. 6. CAD post CABG. we will continue with Atenolol 25 mg orally daily and ASA 81 mg orally daily. 7. BPH. we will continue with Flomax and Mcgarry catheter. 8. Hypothyroidism. we will continue with synthroid 100 mcg orally daily. 9. Xerosis of both legs and poor feet hygiene . we will start Ammonium Lactate 12 % bid and will need Podiatry consult., 10. COPD. we will continue with Neb Rx and prednisone and supportive care. 11. DVT prophylaxis. we will continue with Heparin 5000 units sq q 8 h. 12. GI prophylaxis. we will continue withnProtonix 40 mg IVP daily. 13. Onychomycosis. Consult with Dr. Redding to trim nails. 14. Strep bacteremia. Repeat blood culture ordered, consult with Dr. Castillo, echocardiogram ordered. 15. Supraventricular tachycardia with chest pain. Echocardiogram, cardiology consult Full code. Discharge plan: Home with VNA Impression and plan of care have been directed as dictated by the signing physician. Radha Loco nurse practitioner acting as scribe for signing physician.
[2018-05-04] MEDS: TAMSULOSIN 0.4 MG CAP.ER.24H PO SCH (16:03)
[2018-05-04 17:03] LABS: Glucose,Whole Blood 325 mg/dL (75-99)
--- NOTE | 2018-05-04 18:52 | P.GSHP ---
History of Present Illness H&P Date: 05/04/18 Chief Complaint: Dystrophic mycotic ingrown nails bilateral feet 77 years old male patient of Dr. Venegas with past medical history of asthma, COPD, diabetes, hypertension, hypothyroidism, history of lymphoma status post chemotherapy and radiation, history of colitis, history of coronary artery disease status post CABG, history of sick sinus syndrome status post pacemaker in 2001 , patient was recently hospitalized at [facility] for urinary retention and had immediate relief of obstruction and dyspnea immediately after placing a Mcgovern catheter.patient ended-up getting discharged and he was doing well and he had followe dup with and but he ended up coming to the ER because of increased chills and fever with abdominal pain, was seen in the ER and was found to have ROGE and significant urinary retention with almost 1500 ml urine output and CXR showed possible basilar pneumonia possibly gram negative , so he was started on Levaquin and Zosyn and was admitted to the hospital for treatment. She has been seen by podiatry for significant issues with bilateral feet. States she was given a see a teaseler for the first time prior to his admission to the ER that day. Patient states he has a issue with maintaining his feet. Past Medical History Past Medical History: Asthma, Coronary Artery Disease (CAD), Cancer, Diabetes Mellitus, Hyperlipidemia, Hypertension, Prostate Disorder, Thyroid Disorder Additional Past Medical History / Comment(s): lymphoma, chemotherapy, radiation, - 06/2011 colitis History of Any Multi-Drug Resistant Organisms: None Reported Past Surgical History: Coronary Bypass/CABG, Orthopedic Surgery, Pacemaker Additional Past Surgical History / Comment(s): Lt ankle - plate. sinus surgery s/t cancer Past Anesthesia/Blood Transfusion Reactions: No Reported Reaction Date of Last Stent Placement:: 2001 Type of Cardiac Device: Permanent Pacemaker Device Placement Date:: 2001 Past Psychological History: No Psychological Hx Reported Smoking Status: Former smoker (patient used to smoke PPD for 7-8 years and quit 1967.) Past Alcohol Use History: None Reported Additional Past Alcohol Use History / Comment(s): Patient quit smoking in 1967. He denies any medical marijuana, marijuana, street drug or alcohol use. Past Drug Use History: None Reported - Past Family History Brother(s) Additional Family Medical History / Comment(s): Patient has 3 brothers and one has history of coronary artery disease. Sister(s) Additional Family Medical History / Comment(s): Patient has one sister with history of SVT and AVR. Son(s) Additional Family Medical History / Comment(s): Patient has 2 sons and one has history of kidney stones. Patient does not have any daughters. Patient has a grandson treated for SVT. Father Family Medical History: No Reported History Additional Family Medical History / Comment(s): Father at age 72 with history of coronary artery disease and CABG Mother Family Medical History: No Reported History Additional Family Medical History / Comment(s): Mother at age 93 with history of coronary artery disease. Medications and Allergies Home Medications Medication Instructions Recorded Confirmed Type Atenolol [Tenormin] 25 mg PO DAILY 08/04/14 05/02/18 History Furosemide [Lasix] 40 mg PO BID 08/04/14 05/02/18 History Insulin NPH Human Isophane 20 unit SQ AC-BRKFST 08/04/14 05/02/18 History [NovoLIN N] Insulin Regular, Human [NovoLIN R] See Protocol SQ AC-TID 08/04/14 05/02/18 History Levothyroxine Sodium [Synthroid] 100 mcg PO DAILY 08/04/14 05/02/18 History Lisinopril [Prinivil] 10 mg PO DAILY 08/04/14 05/02/18 History Potassium Chloride [Klor-Con 20] 20 meq PO DAILY 08/04/14 05/02/18 History Ranitidine HCl 150 mg PO DAILY 08/04/14 05/02/18 History glipiZIDE [Glucotrol XL] 5 mg PO DAILY 08/04/14 05/02/18 History Albuterol Inhaler [Ventolin Hfa 1 - 2 puff INHALATION RT-Q4H PRN 11/05/16 History Inhaler] Albuterol Nebulized [Ventolin 2.5 mg INHALATION RT-QID 11/05/16 05/02/18 History Nebulized] Insulin NPH Human Isophane 12 unit SQ AC-SUPPER 11/05/16 05/02/18 History [Humulin N] Ipratropium Nebulized [Atrovent 0.05 mg INHALATION RT-QID 11/05/16 05/02/18 History Nebulized] Verapamil HCl [Verapamil ER] 240 mg PO DAILY 11/05/16 05/02/18 History Vit C/E/Zn/Coppr/Lutein/Zeaxan 1 cap PO BID 04/22/18 05/02/18 History [Preservision Areds 2 Softgel] Hydrocortisone Suppository 25 mg RC BID #10 supp 04/23/18 05/02/18 Rx [Anusol-Hc] Polyethylene Glycol 3350 [Miralax] 17 gm PO DAILY #7 packet 04/23/18 05/02/18 Rx Tamsulosin HCl [Flomax] 0.4 mg PO AC-SUPPER #30 capsule 04/23/18 05/02/18 Rx Allergies Allergy/AdvReac Type Severity Reaction Status Date / Time No Known Allergies Allergy Verified 05/02/18 12:15 Surgical - Exam Vital Signs Temp Pulse Resp BP Pulse Ox 99.2 F 72 16 135/58 95 05/02/18 07:19 05/02/18 07:19 05/02/18 07:19 05/02/18 07:19 05/02/18 07:19 - Cardiovascular Pedal pulses are diminished nonpalpable bilateral skin temperature texture tumor decreased bilateral no digital hair. Pitting edema 3/7 bilateral. Deep dependent rubor or elevational Paylor. - Integumentary Dystrophic mycotic nails to the proximal nail fold 10 the left hallux nail is incurvated and ingrown both medial lateral borders with localized erythema edema. No pain due to neuropathy. Patient has xerosis of bilateral lower extremities. - Neurologic Decreased epicritic and pallesthetic sensations bilateral. Loss of protective sensation up to including the ankle joint area bilateral. Vibratory 2 point tactile diminished at the medial malleolus bilateral purulence. - Musculoskeletal Range of motion ankle joint decreased bilateral range of motion metatarsophalangeal joints decreased bilateral. Remaining pedal joints are essentially normal. All inverters everters plantar flexors dorsiflexors intact symmetrical bilateral hammertoes 2 through 4 bilateral. Results - Labs 05/03/18 06:56 05/04/18 11:08 Abnormal Lab Results - Last 24 Hours (Table) 05/03/18 05/04/18 05/04/18 Range/Units 20:37 02:42 07:01 Potassium (3.5-5.1) mmol/L Chloride (98-107) mmol/L Carbon Dioxide (22-30) mmol/L BUN (9-20) mg/dL Creatinine (0.66-1.25) mg/dL Glucose (74-99) mg/dL POC Glucose (mg/dL) 406 H 328 H 275 H (75-99) mg/dL Calcium (8.4-10.2) mg/dL 05/04/18 05/04/18 05/04/18 Range/Units 11:03 11:08 12:33 Potassium 5.3 H (3.5-5.1) mmol/L Chloride 114 H (98-107) mmol/L Carbon Dioxide 18 L (22-30) mmol/L BUN 66 H (9-20) mg/dL Creatinine 3.11 H (0.66-1.25) mg/dL Glucose 249 H (74-99) mg/dL POC Glucose (mg/dL) 259 H 265 H (75-99) mg/dL Calcium 8.0 L (8.4-10.2) mg/dL 05/04/18 Range/Units 17:00 Potassium (3.5-5.1) mmol/L Chloride (98-107) mmol/L Carbon Dioxide (22-30) mmol/L BUN (9-20) mg/dL Creatinine (0.66-1.25) mg/dL Glucose (74-99) mg/dL POC Glucose (mg/dL) 325 H (75-99) mg/dL Calcium (8.4-10.2) mg/dL Microbiology - Last 24 Hours (Table) 05/02/18 07:44 Blood Culture Gram Stain - Final Blood Blood Culture - Final Strep agalactiae - (group b) Diabetes panel 05/04/18 Range/Units 11:08 Sodium 139 (137-145) mmol/L Potassium 5.3 H (3.5-5.1) mmol/L Chloride 114 H (98-107) mmol/L Carbon Dioxide 18 L (22-30) mmol/L BUN 66 H (9-20) mg/dL Creatinine 3.11 H (0.66-1.25) mg/dL Glucose 249 H (74-99) mg/dL Calcium 8.0 L (8.4-10.2) mg/dL Calcium panel 05/04/18 Range/Units 11:08 Calcium 8.0 L (8.4-10.2) mg/dL Pituitary panel 05/04/18 Range/Units 11:08 Sodium 139 (137-145) mmol/L Potassium 5.3 H (3.5-5.1) mmol/L Chloride 114 H (98-107) mmol/L Carbon Dioxide 18 L (22-30) mmol/L BUN 66 H (9-20) mg/dL Creatinine 3.11 H (0.66-1.25) mg/dL Glucose 249 H (74-99) mg/dL Calcium 8.0 L (8.4-10.2) mg/dL Adrenal panel 05/04/18 Range/Units 11:08 Sodium 139 (137-145) mmol/L Potassium 5.3 H (3.5-5.1) mmol/L Chloride 114 H (98-107) mmol/L Carbon Dioxide 18 L (22-30) mmol/L BUN 66 H (9-20) mg/dL Creatinine 3.11 H (0.66-1.25) mg/dL Glucose 249 H (74-99) mg/dL Calcium 8.0 L (8.4-10.2) mg/dL Assessment and Plan Assessment: Mycotic nails 10 Onychocryptosis left hallux Xerosis bilateral Systemic conditions as documented above. Plan: Exam. After review of chart patient's history and physical we discussed patient 's finding. Patient would benefit from debridement of these nails. We debrided the nails 10 manually. Simple excision was performed dystrophic ingrowing nail on the left hallux. Removal of the entire nail plate to the proximal nail fold was performed. The toe was then dressed with a dry sterile dressing were written for topical antibiotic treatment. Patient would benefit from a emollient to the lower extremities bilateral. Orders were written for the same. Patient should follow up for podiatric care after discharge. Thank you for this consult
[2018-05-04 20:10] LABS: Glucose,Whole Blood 313 mg/dL (75-99)
--- NOTE | 2018-05-04 20:10 | PN ---
PROGRESS NOTE Patient is seen for followup for acute kidney injury. Patient's renal function has improved, with creatinine decreasing from 3.7 to 3.1. Blood pressure had been on the lower side and patient was maintained on GISELE inhibitors prior to admission. Lisinopril is currently on hold. Review of previous labs shows serum creatinine 1.43 on 04/22/2018. Patient has a chronic indwelling Mcgovern catheter from his previous admission a couple of weeks ago. He has had good urine output, about 2.3 L. On examination this morning blood pressure was 96/58, heart rate of about 80 per minute. Patient is afebrile. EXAMINATION OF THE HEART: S1, S2. EXAMINATION OF LUNGS: Bilateral breath sounds are heard. ABDOMEN: Soft, non-tender. Examination of lower extremities shows edema bilaterally 2+. Bilateral legs are wrapped. There are chronic skin changes noted in the feet. DIRECTOR ADVERTISING exam is 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. Labs show sodium 139, potassium 5.3, chloride 114, BUN 66, serum creatinine 3.1. CO2 is 18. ASSESSMENT: 1. Acute kidney injury secondary to hypotension, hypoperfusion in the setting of use of GISELE inhibitors, currently on hold with some improvement in renal function. Ultrasound shows both kidneys about 11.5 cm. There is mild left hydronephrosis seen. Patient has an indwelling Mcgovern catheter for obstructive uropathy and bilateral hydronephrosis on his last admission. 2. Hypotension. Continue to hold off on antihypertensive medications. 3. Bilateral lower extremity edema and volume overload. I will discontinue the normal saline. We may need to start gentle diuresis. Echocardiogram is pending. 4. Chronic kidney disease, NKF stage III; previous creatinine at 1.43. Etiology is likely nephrosclerosis with an element of obstructive uropathy as well, currently with chronic indwelling Mcgovern catheter since his last admission. PLAN: Discontinue IV fluids. Repeat labs in a.m. Continue off of antihypertensive medications. Patient may need to start diuretics, depending on volume status, renal function tomorrow. We will follow up on the results of the echocardiogram. MMODL / IJN: [id number] /
[2018-05-04] MEDS: NEOMYCIN-BACITRACIN-POLY OINT 14 GM TUBE TOPICAL SCH (20:40)
[2018-05-05] MEDS ORDERED: ceFAZolin IN SWFI 2 GM/20 ML SYRINGE IVP SCH
--- NOTE | 2018-05-05 00:01 | CONS ---
CONSULTATION DATE OF SERVICE: 05/04/2018. REASON FOR CONSULTATION: Positive blood culture. HISTORY OF PRESENT ILLNESS: The patient is a 77-year-old male coming into the ER with chief complaints of increasing chills, rigors and fever. The patient denies having any headache or any urinary symptoms. No chest pain. Minimal shortness of breath. Very minimal cough, but not bringing up any sputum. No nausea, no vomiting. No abdominal pain. No diarrhea. The patient also has some swelling to the leg. The patient has been marked on the left leg with the redness. Slight heat to the leg. No open wound or any drainage. With these symptoms, the patient has been evaluated by the ER physician. On arrival to the ER, the patient did have a low-grade fever of 99.8. The patient did have a white count of 17.6. His UA was negative. The patient did have a component of renal failure with creatinine of 3.72. The patient did have a chest x-ray consistent with mild heart failure. The patient has been treated with Levaquin and Zosyn with concern for a pneumonia. He did have blood cultures obtained now showing a Streptococcus agalactiae group B which prompted this infectious disease consultation. Patient as of this morning has been complaining of pain mostly on the left side. The chest pain is mostly sharp to pressure-like with no radiation and no associated nausea, vomiting, or any diarrhea. REVIEW OF SYSTEMS: CONSTITUTIONAL: Positive for weakness and chills. EYES: No complaint. ENT: No complaint. RESPIRATORY: As per HPI. CARDIOVASCULAR: No complaint. GENITOURINARY: No complaint. GASTROINTESTINAL: No complaint. MUSCULOSKELETAL: No complaint. INTEGUMENTARY: As per HPI. PSYCHOLOGICAL: No complaint. NEUROLOGICAL: No complaint. PAST MEDICAL HISTORY: Hypertension, hyperlipidemia, diabetes mellitus, hypothyroidism, prostate disorder, coronary disease, asthma, also history of lymphoma status post chemo and radiation. PAST SURGICAL HISTORY: Coronary artery bypass grafting, pacemaker placement, left ankle fracture repair, sinus surgery. SOCIAL HISTORY: Remote history of smoking, quit back in 1967. No drinking or drug use. FAMILY HISTORY: Brother with history of coronary artery disease. Sister has history of kidney stone. ALLERGIES: No known drug allergies. MEDICATIONS: 1. Tylenol. 2. DuoNeb. 3. Tenormin. 4. Glucotrol. 5. Heparin. 6. NovoLog. 7. Lactic acid. 8. Synthroid. 9. Narcan. 10.Nitrostat. 11.Zofran. 12.Protonix. 13.MiraLAX. 14.Prednisone. 15.Zosyn. 16.Levaquin. EXAMINATION: Blood pressure is 137/65, pulse of 73, temperature 96.9, he is 97% on room air. GENERAL DESCRIPTION: An elderly male lying in bed in no distress. No tachypnea or accessory muscle of respiration use. HEENT: Shows pallor. No scleral icterus. Oral mucosa is dry. No pharyngeal erythema or thrush. NECK: Trachea central. No thyromegaly. LUNGS: Unlabored breathing with decreased breath sounds in the bases. No wheeze. HEART: S1, S2. Regular rate and rhythm. ABDOMEN: Soft, no tenderness. No guarding. No organomegaly. EXTREMITIES: Right leg has swelling, left leg is more swollen. Right has old crusting. No significant drainage. SKIN EXAMINATION: No rash or mass palpable. NEUROLOGICAL: The patient is awake, alert, oriented. Mood and affect normal. LABS: Hemoglobin 8.8, white count 17.6, BUN of 66, creatinine 3.11. 5.3. Blood culture with group B strep. DIAGNOSTIC IMPRESSION AND PLAN: 1. Patient with group B strep bacteremia, source is likely left leg cellulitis in a patient who has diffuse swelling and redness and some evidence of likely the active source of infection as the patient is currently without clinical focus of infection and clinically doubt pneumonia, both clinically as well as radiologically. 2. Patient has adrenal insufficiency, putting at risk of toxicity and could limit use of some antibiotics. PLAN: 1. Discontinue Zosyn and Levaquin. 2. We will start the patient on cefazolin 2 g every 12 hours, place close attention to his kidney function. 3. Andrew wrap to both legs. 4. We will follow up on the clinical condition and culture to further adjust medication if needed. Thank you for this consultation. Will follow this patient along with you. MMODL / IJN: [id number] /
[2018-05-05] MEDS: HEPARIN SODIUM,PORCINE 5,000 UNIT/ML 1 ML VIAL SQ SCH ×4 (00:46→23:25)
[2018-05-05] MEDS: LEVOTHYROXINE 100 MCG TAB PO SCH (05:59)
[2018-05-05 07:20] LABS: Glucose,Whole Blood 246 mg/dL (75-99)
[2018-05-05] MEDS: IPRATROPIUM-ALBUTEROL 3 ML NEB INHALATION SCH ×4 (08:02→19:32)
[2018-05-05] MEDS: INSULIN NPH 300 UNIT/3 ML VIAL SQ SCH (08:20)
[2018-05-05] MEDS: AMMONIUM LACTATE 12% CREAM 140 GM TUBE TOPICAL SCH ×2 (08:20→22:25)
[2018-05-05] MEDS: NEOMYCIN-BACITRACIN-POLY OINT 14 GM TUBE TOPICAL SCH (08:20)
[2018-05-05] MEDS: SODIUM BICARBONATE TAB 650 MG TAB PO SCH ×2 (08:21→22:26)
[2018-05-05] MEDS: PANTOPRAZOLE 40 MG TABLET PO SCH (08:21)
[2018-05-05] MEDS: ATENOLOL 25 MG TAB PO SCH (08:21)
[2018-05-05] MEDS: predniSONE 20 MG TAB PO SCH (08:21)
[2018-05-05] MEDS: VERAPAMIL SR 240 MG TABLET.ER PO SCH (08:21)
[2018-05-05] MEDS: INSULIN ASPART 100 UNIT/ML 1 ML 10 ML VIAL SQ SCH ×3 (08:22→17:40)
[2018-05-05] MEDS: POTASSIUM CHLORIDE ER 20 MEQ TAB.ER PO SCH (08:22)
[2018-05-05] MEDS: POLYETHYLENE GLYCOL 3350 17 GM POWD.PACK PO SCH ×2 (08:23→09:57)
[2018-05-05 09:13] LABS: HCT 29.4 % (39.0-53.0); HGB 9.3 gm/dL (13.0-17.5); MCH 30.3 pg (25.0-35.0); MCHC 31.8 g/dL (31.0-37.0); MCV 95.3 fL (80.0-100.0); Mean Platelet Volume 7.2; Platelet Count 150 k/uL (150-450); RBC 3.08 m/uL (4.30-5.90); RDW 14.8 % (11.5-15.5); WBC 15.5 k/uL (3.8-10.6)
[2018-05-05 09:16] LABS: Calcium 8.6 mg/dL (8.4-10.2); Potassium 5.6 mmol/L (3.5-5.1)
[2018-05-05 09:37] LABS: Magnesium 2.6 mg/dL (1.6-2.3)
[2018-05-05] MEDS: ceFAZolin IN SWFI 2 GM/20 ML SYRINGE IVP SCH ×2 (09:42→22:26)
[2018-05-05] MEDS ORDERED: INSULIN NPH 300 UNIT/3 ML VIAL SQ STA (09:42)
--- NOTE | 2018-05-05 11:12 | ECHOF ---
Referral Reason:vegetation, +blood cx MEASUREMENTS -------- HEIGHT: 152.4 cm WEIGHT: 104.3 kg BP: 167/45 RVIDd: 3.3 cm (< 3.3) IVSd: 1.3 cm (0.6 - 1.1) LVIDd: 5.3 cm (3.9 - 5.3) LVPWd: 1.2 cm (0.6 - 1.1) IVSs: 1.5 cm LVIDs: 3.5 cm LVPWs: 1.4 cm LA Diam: 4.8 cm (2.7 - 3.8) Ao Diam: 3.2 cm (2.0 - 3.7) AV Cusp: 1.9 cm (1.5 - 2.6) LA Diam: 4.7 cm (2.7 - 3.8) MV EXCURSION: 19.132 mm (> 18.000) MV EF SLOPE: 93 mm/s (70 - 150) EPSS: 0.9 cm MV E David: 0.93 m/s MV DecT: 157 ms MV A David: 0.63 m/s MV E/A Ratio: 1.48 RAP: 5.00 mmHg RVSP: 29.28 mmHg FINDINGS -------- Sinus rhythm. Pacerwire seen in RV and RA. This was a techncally difficult study with suboptimal views, , Definity utilized for enhancement of i mages. The left ventricular size is normal. There is mild concentric left ventricular hypertrophy. Overa ll left ventricular systolic function is moderately impaired with, an EF between 35 - 40 %. Mid ant erior LV wall motion is akinetic. Mid anteroseptal LV wall motion is akinetic. Apical anterior LV wall motion is akinetic. Apical septum LV wall motion is akinetic. The right ventricle is normal in size. The left atrium is moderately dilated. The right atrial size is normal. 1.5MG OF DEFINITY UTLIZED: 2 OR MORE WALL SEGMENTS NOT VISUALIZED. There is mild aortic valve sclerosis. Mild mitral annular calcification present. Mild mitral regurgitation is present. Mild tricuspid regurgitation present. Right ventricular systolic pressure is normal at < 35 mmHg. The right ventricular systolic pressure, as measured by Doppler, is 29.28mmHg. The pulmonic valve was not well visualized. Trace/mild (physiologic) pulmonic regurgitation. The aortic root size is normal. There is no pericardial effusion. CONCLUSIONS -------- 1. Sinus rhythm. 2. Pacerwire seen in RV and RA. 3. This was a techncally difficult study with suboptimal views, , Definity utilized for enhancement o f images. 4. There is mild concentric left ventricular hypertrophy. 5. Overall left ventricular systolic function is moderately impaired with, an EF between 35 - 40 %. 6. Mid anterior LV wall motion is akinetic. 7. Mid anteroseptal LV wall motion is akinetic. 8. Apical anterior LV wall motion is akinetic. 9. Apical septum LV wall motion is akinetic. 10. The left atrium is moderately dilated. 11. 1.5MG OF DEFINITY UTLIZED: 2 OR MORE WALL SEGMENTS NOT VISUALIZED. 12. There is mild aortic valve sclerosis. 13. Mild mitral annular calcification present. 14. Mild mitral regurgitation is present. 15. Mild tricuspid regurgitation present. 16. Right ventricular systolic pressure is normal at < 35 mmHg. 17. The pulmonic valve was not well visualized. 18. Trace/mild (physiologic) pulmonic regurgitation. 19. The aortic root size is normal. 20. There is no pericardial effusion. CHAIR AND [employer]CH [employer]KER: Hina Petty RDCS
[2018-05-05 11:27] LABS: T4, Free (Free Thyroxine) 0.81 ng/dL (0.78-2.19)
[2018-05-05 11:31] LABS: Glucose,Whole Blood 320 mg/dL (75-99)
--- NOTE | 2018-05-05 12:35 | P.PN ---
Subjective Progress Note Date: 05/05/18 77 years old male patient of Dr. Venegas with past medical history of asthma, COPD, diabetes, hypertension, hypothyroidism, history of lymphoma status post chemotherapy and radiation, history of colitis, history of coronary artery disease status post CABG, history of sick sinus syndrome status post pacemaker in 2001 , patient was recently hospitalized at [facility] for urinary retention and had immediate relief of obstruction and dyspnea immediately after placing a Mcgarry catheter.patient ended-up getting discharged and he was doing well and he had followe dup with and but he ended up coming to the ER because of increased chills and fever with abdominal pain, was seen in the ER and was found to have ROGE and significant urinary retention with almost 1500 ml urine output and CXR showed possible basilar pneumonia possibly gram negative , so he was started on Levaquin and Zosyn and was admitted to the hospital for treatment. 05/03: Repeat lab work shows a hemoglobin of 8.8, white count of 11.6, CO2 18, BUN 77 creatinine 3.45. Blood sugars are running in the low 200s. Renal ultrasound reveals right-sided renal cortical cyst. Mild left-sided hydronephrosis. No evidence of solid renal mass. Consult with Dr. Márquez will be added. Patient is known to Dr. Márquez in the past. Patient states that his breathing is improved today. He still continues to have little cough. He is using Lac-Hydrin with improvement of his dry skin. Consult added for Dr. Redding to trim patient's nails. IV fluids will be decreased to 75 mL per hour. 05/04: Patient has been seen by Dr. Murry for acute kidney injury with metabolic acidosis recommendations to maintain on IV fluids, sodium bicarb. Patient states that he is feeling much better today. He denies any abdominal pain. No chest pain. Blood culture is positive for strep echo lacteal. Patient gives history that about 1-2 months ago he had to have a cracked tooth and was on antibiotics. Consult with Dr. Castillo added, echocardiogram and repeat blood culture ordered. Patient has had good urine output and Mcgarry catheter remains in place. Physical therapy has recommended home with homecare. VNA has been arranged. After patient had echocardiogram completed, he went into a sinus tachycardia 130s with chest pain rating down his arm. He did receive 2 nitroglycerin and cardiology consult was requested. Patient did convert to a normal sinus rhythm and chest pain was resolved. 05/05: Renal function is improving with BUN of 63 and creatinine 2.85. Blood sugars are running quite high in the 200s and 300s. Humulin and will be increased to 26 units at breakfast and 16 units with supper and continue NovoLog scale. Prednisone will be decreased to 20 mg daily. Patient was seen by Dr. Redding yesterday and nails weren't of bright red and simple excision was performed on the dystrophic ingrowing nail on the left helix with removal of the entire nail plate to the proximal nail fold. Patient to be on topical antibiotics. Echocardiogram reveals EF of 35-40% with suboptimal views, mild concentric left ventricular hypertrophy, mild mitral regurgitation and mild tricuspid regurgitation. There is no mention of vegetation. Patient is followed by Dr. Castillo and Zosyn and Levaquin were discontinued and patient started on Kefzol. Patient has Andrew wraps to both legs. Repeat blood cultures status received. Cardiology is on consult. Anticipate possible discharge tomorrow with VNA Review of Systems Constitutional: Denies chills, Reports fatigue, denies fever, Reports weakness Eyes: denies blurred vision, denies bulging eye, denies decreased vision, denies diplopia Ears, nose, mouth and throat: Denies dysphagia, Denies sore throat Cardiovascular: Reports decreased exercise tolerance, Reports dyspnea on exertion, denies shortness of breath, Denies chest pain, Denies syncope Respiratory: Reports cough, Reports cough with sputum, Denies congestion, Denies home oxygen, Denies sleep apnea, Denies snoring, Denies wheezing Gastrointestinal: Reports abdominal pain, Denies BRBPR, Denies change in bowel habits, Denies heartburn, Denies melena, Denies nausea, Denies vomiting Genitourinary: Reports dysuria, Reports urinary retention Musculoskeletal: Reports atrophy, Reports gait dysfunction Musculoskeletal: absent: ankle pain, ankle stiffness, ankle swelling, elbow pain , elbow stiffness, elbow swelling, foot pain, foot stiffness, foot swelling, hand pain, hand stiffness, hand swelling, hip pain, hip stiffness, hip swelling , knee pain, knee stiffness, knee swelling, shoulder pain, shoulder stiffness, shoulder swelling, wrist pain, wrist stiffness, wrist swelling Integumentary: Denies pruritus, Denies rash Neurological: Denies numbness, Denies weakness Psychiatric: Denies anxiety, Denies depression Endocrine: Denies fatigue, Denies weight change Objective - Vital Signs Vital signs: Vital Signs Temp 96.8 F L 05/05/18 05:00 Pulse 84 05/05/18 08:12 Resp 16 05/05/18 05:00 BP 155/70 05/05/18 05:00 Pulse Ox 95 05/05/18 05:00 Intake & Output 05/04/18 05/05/18 05/05/18 18:59 06:59 18:59 Intake Total 425 480 Output Total 900 800 Balance -475 -320 Weight 104.326 kg Intake: Intake, IV Titration 425 480 Amount Piperacillin-Tazobactam 3 25 .375 gm In Sodium Chloride 0.9% 100 ml @ 25 mls/hr IVPB Q12HR [facility] Rx #:[id number] Sodium Chloride 0.45% 1, 400 480 000 ml @ 50 mls/hr IV . Q20H [facility] Rx#:[id number] Output: Urine 900 800 Uretheral (Mcgarry) 800 Other: Voiding Method Indwelling Catheter Indwelling Catheter Indwelling Catheter # Bowel Movements 1 - Exam General appearance: average body habitus, no distress, patient sitting up in a chair. - EENT Eyes: anicteric sclerae, EOMI, PERRLA, no ptosis, no scleral icterus, normal appearance ENT: hard of hearing, NA/AT, normal oropharynx Ears: bilateral: normal - Neck Neck: no lymphadenopathy, normal ROM, no rigidity, no stridor, no thyromegaly Carotids: bilateral: upstroke delayed - Respiratory Respiratory: bilateral: diminished, prolonged expiration, negative: dullness, rales, rhonchi, wheezing - Cardiovascular Rhythm: regular Heart sounds: normal: S1, S2 Abnormal Heart Sounds: systolic murmur - Gastrointestinal General gastrointestinal: normal bowel sounds, soft, no tenderness, Mcgarry catheter draining clear darren urine. - Integumentary Integumentary: normal, normal turgor (there sever Xerosis of both legs with thick sloughing skin.) - Neurologic Neurologic: CNII-XII intact - Musculoskeletal Musculoskeletal: gait normal, generalized weakness - Psychiatric Psychiatric: A&O x's 3, appropriate affect, intact judgment & insight - Labs CBC & Chem 7: 05/05/18 08:22 05/05/18 08:22 Labs: Abnormal Lab Results - Last 24 Hours (Table) 05/04/18 05/04/18 05/04/18 Range/Units 11:03 11:08 12:33 WBC (3.8-10.6) k/uL RBC (4.30-5.90) m/uL Hgb (13.0-17.5) gm/dL Hct (39.0-53.0) % Potassium 5.3 H (3.5-5.1) mmol/L Chloride 114 H (98-107) mmol/L Carbon Dioxide 18 L (22-30) mmol/L BUN 66 H (9-20) mg/dL Creatinine 3.11 H (0.66-1.25) mg/dL Glucose 249 H (74-99) mg/dL POC Glucose (mg/dL) 259 H 265 H (75-99) mg/dL Calcium 8.0 L (8.4-10.2) mg/dL Magnesium (1.6-2.3) mg/dL 05/04/18 05/04/18 05/05/18 Range/Units 17:00 20:08 07:18 WBC (3.8-10.6) k/uL RBC (4.30-5.90) m/uL Hgb (13.0-17.5) gm/dL Hct (39.0-53.0) % Potassium (3.5-5.1) mmol/L Chloride (98-107) mmol/L Carbon Dioxide (22-30) mmol/L BUN (9-20) mg/dL Creatinine (0.66-1.25) mg/dL Glucose (74-99) mg/dL POC Glucose (mg/dL) 325 H 313 H 246 H (75-99) mg/dL Calcium (8.4-10.2) mg/dL Magnesium (1.6-2.3) mg/dL 05/05/18 05/05/18 05/05/18 Range/Units 08:22 08:22 08:22 WBC 15.5 H (3.8-10.6) k/uL RBC 3.08 L (4.30-5.90) m/uL Hgb 9.3 L (13.0-17.5) gm/dL Hct 29.4 L (39.0-53.0) % Potassium 5.6 H (3.5-5.1) mmol/L Chloride 118 H (98-107) mmol/L Carbon Dioxide 16 L (22-30) mmol/L BUN 63 H (9-20) mg/dL Creatinine 2.85 H (0.66-1.25) mg/dL Glucose 227 H (74-99) mg/dL POC Glucose (mg/dL) (75-99) mg/dL Calcium (8.4-10.2) mg/dL Magnesium 2.6 H (1.6-2.3) mg/dL Microbiology - Last 24 Hours (Table) 05/02/18 07:44 Blood Culture Gram Stain - Final Blood Blood Culture - Final Strep agalactiae - (group b) Assessment and Plan Plan: 1. Acute kidney injury with metabolic acidosis due to obstructive uropathy. continue mcgarry catheter and flomax 0.4 mg orally daily. US of the kidneys and bladder as above. Consult with Dr. Márquez regarding mild hydronephrosis. Consult with Dr. Murry appreciated. Sodium bicarb started. Patient is off IV fluids. 2. Possible gram negative pneumonia. we will continue with Levaquin and Zosyn , we will continue with supportive care, and Neb Rx . 3. Diabetes mellitus type 2 . we will continue with Novolin 70/30 and glipizide and will continue with BG ACHS. 4. Hypertension and hypertensive cardiovascular disease. will continue with Lisinopril 10 mg orally daily, Atenolol 25 mg orally daily and Verapamil 240 mg orally daily. 5. Hyperlipidemia. we will continue with low cholesterol diet. 6. CAD post CABG. we will continue with Atenolol 25 mg orally daily and ASA 81 mg orally daily. 7. BPH. we will continue with Flomax and Mcgarry catheter. 8. Hypothyroidism. we will continue with synthroid 100 mcg orally daily. 9. Xerosis of both legs and poor feet hygiene . we will start Ammonium Lactate 12 % bid and will need Podiatry consult., 10. COPD. we will continue with Neb Rx and prednisone and supportive care. 11. DVT prophylaxis. we will continue with Heparin 5000 units sq q 8 h. 12. GI prophylaxis. we will continue withnProtonix 40 mg IVP daily. 13. Onychomycosis. Consult with Dr. Redding to trim nails. 14. Strep bacteremia. Repeat blood culture ordered, consult with Dr. Castillo, echocardiogram ordered. Antibiotics changed to Kefzol. 15. Supraventricular tachycardia with chest pain and converted to normal sinus rhythm. Echocardiogram as above, cardiology consult Full code. Discharge plan: Home with VNA tomorrow Impression and plan of care have been directed as dictated by the signing physician. Radha Loco nurse practitioner acting as scribe for signing physician.
--- NOTE | 2018-05-05 13:58 | P.CRDCN ---
History of Present Illness History of present illness: This is a pleasant 77-year-old male past medical history significant for coronary artery disease status post bypass grafting in 2001 pt believes it was a 4V bypass, history of pacemaker implantation for sick sinus syndrome with recent upgrade to AICD per the patient in May of this year, hypertension, dyslipidemia, diabetes mellitus and COPD. He follows with Dr. Bravo at [facility]. He presented to the hospital for symptoms of urinary retention, fever and chills. He was found to have significant urinary retention, acute kidney injury and pneumonia. Blood cultures obtained were positive for strep B. An echocardiogram was obtained. After getting his echo he was sitting in bed and started feeling his heart racing. He states he has had SVT in the past and this felt similar. Telemetry tracings indicate sinus tachycardia with heart rate 135. This lasted for approximately 20-25 minutes and was associated with mild shortness of breath and a tight sensation in his chest. He states typically when this happens he will bare down and hold his breath. He attempted these maneuvers and eventually his heart rate slowed down. Once the palpitations stopped the shortness of breath and tightness in his chest stopped as well. At the time of my exam he is seen and examined sitting up in bed in no acute distress. He has had no further episodes since yesterday. Echocardiogram obtained reveals moderately impaired left ventricular systolic function with ejection fraction 35-40%, mid anterior LV, mid anteroseptal LV, apical LV, apical septal LV wall motion akinesis. There is also mild aortic valve sclerosis, mild TR and mild MR. There is no old for comparison. He is currently maintained on verapamil 240 mg daily and atenolol 25 mg daily. EKG on admission reveals sinus mechanism T-wave inversions laterally and left axis deviation. EKG obtained yesterday during this episode reveals supraventricular tachycardia. Laboratory data reviewed, WBC 15.5, hemoglobin 9.3, platelets 150, sodium 140, potassium 5.6, creatinine 2.85, TSH 0.219, free T4 0.81, magnesium 2.6, Current cardiac medications include atenolol 25 mg daily, Lasix 40 mg twice a day, lisinopril 10 mg daily, verapamil 240 mg daily. Lisinopril and Lasix up and out since admission secondary to acute kidney injury. At the time of my exam: CONSTITUTIONAL: Denies fever. Denies chills. EYES: Denies blurred vision. Denies vision changes. Denies eye pain. EARS, NOSE, MOUTH & THROAT: Denies headache. Denies sore throat. Denies ear pain. CARDIOVASCULAR: Denies chest pain. Denies shortness of breath. Denies orthopnea. Denies PND. Denies palpitations. RESPIRATORY: Denies cough. GASTROINTESTINAL: Denies abdominal pain. Denies diarrhea. Denies constipation. Denies nausea. Denies vomiting. MUSCULOSKELETAL: Denies myalgias. INTEGUMENTARY: Denies pruitis. Denies rash. NEUROLOGIC: Denies numbness. Denies tingling. Denies weakness. PSYCHIATRIC: Denies anxiety. Denies depression. ENDOCRINE: Denies fatigue. Denies weight change. Denies polydipsia. Denies polyurina. GENITOURINARY: Denies burning, hematuria or urgency with micturation. HEMATOLOGIC: Denies history of anemia. Denies bleeding. Blood pressure 155/70 heart rate 84 afebrile maintaining oxygen saturation on room air GENERAL: This is a 77-year-old in no apparent distress at the time of my examination. HEENT: Head is atraumatic, normocephalic. Pupils are equal, round. Sclerae anicteric. Conjunctivae are clear. Mucous membranes of the mouth are moist. Neck is supple. There is no jugular venous distention. No carotid bruit is heard. LUNGS: Clear to auscultation no wheezes, rales or rhonchi. No chest wall tenderness is noted on palpation or with deep breathing. Diminished bilaterally. HEART: Regular rate and rhythm with systolic ejection murmur at the base, no rubs or gallops. S1 and S2 heard. ABDOMEN: Soft, nontender. Bowel sounds are heard. No organomegaly noted. EXTREMITIES: 1+ bilateral lower extremity peripheral edema with discoloration and chronic sloughing and no calf tenderness noted. VASCULAR: Radial and dorsalis pedis pulses palpated, no evidence of clubbing. NEUROLOGIC: Patient is awake, alert and oriented x3. 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 Patient is unsure of his baseline LV function. Repeat EKG. Check a second troponin. Obtain records from Dr. Bravo office for review. Further recommendations to follow based on clinical course. Thank you kindly for this consultation. Nurse Practitioner note has been reviewed, I agree with a documented findings and plan of care. Patient was seen and examined. Past Medical History Past Medical History: Asthma, Coronary Artery Disease (CAD), Cancer, Diabetes Mellitus, Hyperlipidemia, Hypertension, Prostate Disorder, Thyroid Disorder Additional Past Medical History / Comment(s): lymphoma, chemotherapy, radiation, - 06/2011 colitis History of Any Multi-Drug Resistant Organisms: None Reported Past Surgical History: Coronary Bypass/CABG, Orthopedic Surgery, Pacemaker Additional Past Surgical History / Comment(s): Lt ankle - plate. sinus surgery s/t cancer Past Anesthesia/Blood Transfusion Reactions: No Reported Reaction Date of Last Stent Placement:: 2001 Type of Cardiac Device: Permanent Pacemaker Device Placement Date:: 2001 Past Psychological History: No Psychological Hx Reported Smoking Status: Former smoker (patient used to smoke PPD for 7-8 years and quit 1967.) Past Alcohol Use History: None Reported Additional Past Alcohol Use History / Comment(s): Patient quit smoking in 1967. He denies any medical marijuana, marijuana, street drug or alcohol use. Past Drug Use History: None Reported - Past Family History Brother(s) Additional Family Medical History / Comment(s): Patient has 3 brothers and one has history of coronary artery disease. Sister(s) Additional Family Medical History / Comment(s): Patient has one sister with history of SVT and AVR. Son(s) Additional Family Medical History / Comment(s): Patient has 2 sons and one has history of kidney stones. Patient does not have any daughters. Patient has a grandson treated for SVT. Father Family Medical History: No Reported History Additional Family Medical History / Comment(s): Father at age 72 with history of coronary artery disease and CABG Mother Family Medical History: No Reported History Additional Family Medical History / Comment(s): Mother at age 93 with history of coronary artery disease. Medications and Allergies Home Medications Medication Instructions Recorded Confirmed Type Atenolol [Tenormin] 25 mg PO DAILY 08/04/14 05/02/18 History Furosemide [Lasix] 40 mg PO BID 08/04/14 05/02/18 History Insulin NPH Human Isophane 20 unit SQ AC-BRKFST 08/04/14 05/02/18 History [NovoLIN N] Insulin Regular, Human [NovoLIN R] See Protocol SQ AC-TID 08/04/14 05/02/18 History Levothyroxine Sodium [Synthroid] 100 mcg PO DAILY 08/04/14 05/02/18 History Lisinopril [Prinivil] 10 mg PO DAILY 08/04/14 05/02/18 History Potassium Chloride [Klor-Con 20] 20 meq PO DAILY 08/04/14 05/02/18 History Ranitidine HCl 150 mg PO DAILY 08/04/14 05/02/18 History glipiZIDE [Glucotrol XL] 5 mg PO DAILY 08/04/14 05/02/18 History Albuterol Inhaler [Ventolin Hfa 1 - 2 puff INHALATION RT-Q4H PRN 11/05/16 History Inhaler] Albuterol Nebulized [Ventolin 2.5 mg INHALATION RT-QID 11/05/16 05/02/18 History Nebulized] Insulin NPH Human Isophane 12 unit SQ AC-SUPPER 11/05/16 05/02/18 History [Humulin N] Ipratropium Nebulized [Atrovent 0.05 mg INHALATION RT-QID 11/05/16 05/02/18 History Nebulized] Verapamil HCl [Verapamil ER] 240 mg PO DAILY 11/05/16 05/02/18 History Vit C/E/Zn/Coppr/Lutein/Zeaxan 1 cap PO BID 04/22/18 05/02/18 History [Preservision Areds 2 Softgel] Hydrocortisone Suppository 25 mg RC BID #10 supp 04/23/18 05/02/18 Rx [Anusol-Hc] Polyethylene Glycol 3350 [Miralax] 17 gm PO DAILY #7 packet 04/23/18 05/02/18 Rx Tamsulosin HCl [Flomax] 0.4 mg PO AC-SUPPER #30 capsule 04/23/18 05/02/18 Rx Allergies Allergy/AdvReac Type Severity Reaction Status Date / Time No Known Allergies Allergy Verified 05/02/18 12:15 Physical Exam Vitals: Vital Signs Temp Pulse Pulse Pulse Resp BP BP 05/05/18 08:12 84 05/05/18 08:02 80 05/05/18 05:00 96.8 F L 60 16 155/70 05/05/18 00:05 60 18 05/04/18 21:00 96.9 F L 63 16 137/65 05/04/18 20:01 82 05/04/18 19:50 82 05/04/18 16:34 80 05/04/18 16:19 80 05/04/18 12:17 131 H 132/76 05/04/18 12:08 136 H 96/58 05/04/18 11:29 88 05/04/18 11:12 72 Pulse Ox 05/05/18 08:12 05/05/18 08:02 05/05/18 05:00 95 05/05/18 00:05 05/04/18 21:00 96 05/04/18 20:01 05/04/18 19:50 05/04/18 16:34 05/04/18 16:19 05/04/18 12:17 05/04/18 12:08 05/04/18 11:29 05/04/18 11:12 Intake and Output 05/04/18 05/05/18 05/05/18 22:59 06:59 14:59 Intake Total 400 80 Output Total 300 800 Balance 100 -720 Intake: Intake, IV Titration 400 80 Amount Sodium Chloride 0.45% 1, 400 80 000 ml @ 50 mls/hr IV . Q20H [facility] Rx#:[id number] Output: Urine 300 800 Uretheral (Mcgovern) 800 Other: Voiding Method Indwelling Catheter Indwelling Catheter Indwelling Catheter # Bowel Movements 1 Weight 104.326 kg Results 05/05/18 08:22 05/05/18 08:22 CBC 05/05/18 Range/Units 08:22 WBC 15.5 H (3.8-10.6) k/uL RBC 3.08 L (4.30-5.90) m/uL Hgb 9.3 L (13.0-17.5) gm/dL Hct 29.4 L (39.0-53.0) % Plt Count 150 (150-450) k/uL Comprehensive Metabolic Panel 05/04/18 05/05/18 Range/Units 11:08 08:22 Sodium 139 140 (137-145) mmol/L Potassium 5.3 H 5.6 H (3.5-5.1) mmol/L Chloride 114 H 118 H (98-107) mmol/L Carbon Dioxide 18 L 16 L (22-30) mmol/L BUN 66 H 63 H (9-20) mg/dL Creatinine 3.11 H 2.85 H (0.66-1.25) mg/dL Glucose 249 H 227 H (74-99) mg/dL Calcium 8.0 L 8.6 (8.4-10.2) mg/dL Current Medications Generic Name Dose Route Start Last Admin Trade Name Freq PRN Reason Stop Dose Admin Acetaminophen 650 mg 05/02/18 11:16 05/02/18 22:22 Tylenol Tab PO 650 mg Q6HR PRN Administration Mild Pain or Fever > 100.5 Albuterol/Ipratropium 3 ml 05/02/18 12:00 05/05/18 08:02 Duoneb 0.5 Mg-3 Mg/3 Ml Soln INHALATION 3 ml RT-QID MELISA Administration Albuterol/Ipratropium 3 ml 05/03/18 01:24 05/04/18 00:26 Duoneb 0.5 Mg-3 Mg/3 Ml Soln INHALATION 3 ml RT-Q2H PRN Administration Shortness Of Breath Or Wheezing Atenolol 25 mg 05/03/18 09:00 05/05/18 08:21 Tenormin PO 25 mg DAILY MELISA Administration Cefazolin Sodium 2 gm 05/05/18 09:00 05/05/18 09:42 Kefzol IVP 2 gm Q12HR MELISA Administration Glipizide 2.5 mg 05/03/18 07:30 05/05/18 08:21 Glucotrol PO 2.5 mg AC-BID MELISA Administration Heparin Sodium (Porcine) 5,000 unit 05/02/18 16:00 05/05/18 08:22 Heparin SQ 5,000 unit Q8HR MELISA Administration Insulin Aspart 0 unit 05/02/18 12:30 05/05/18 08:22 Novolog SQ 5 unit ACHS MELISA Administration Protocol Insulin Human NPH 16 unit 05/05/18 17:30 Humulin N SQ AC-SUPPER MELISA Insulin Human NPH 26 unit 05/06/18 07:30 Humulin N SQ AC-BRKFST MELISA Lactic Acid 1 applic 05/03/18 09:00 05/05/18 08:20 Ammonium Lactate TOPICAL 1 applic BID MELISA Administration Levothyroxine Sodium 100 mcg 05/03/18 06:30 05/05/18 05:59 Synthroid PO 100 mcg DAILY@0630 MELISA Administration Naloxone HCl 0.2 mg 05/02/18 11:09 Narcan IV Q2M PRN Opioid Reversal Neomycin/Polymyxin/Bacitracin 1 applic 05/04/18 19:30 05/05/18 08:20 Triple Antibiotic Ointment TOPICAL 1 applic DAILY MELISA Administration Nitroglycerin 0.4 mg 05/04/18 12:05 05/04/18 12:13 Nitrostat SUBLINGUAL 0.4 mg Q5M PRN Administration Chest Pain Ondansetron HCl 4 mg 05/02/18 11:16 Zofran IVP Q8HR PRN Nausea And Vomiting Pantoprazole Sodium 40 mg 05/05/18 09:00 05/05/18 08:21 Protonix PO 40 mg DAILY MELISA Administration Polyethylene Glycol 17 gm 05/03/18 09:00 05/05/18 09:57 Miralax PO 17 gm DAILY MELISA Administration Potassium Chloride 20 meq 05/03/18 09:00 05/05/18 08:22 K-Dur 20 PO 20 meq DAILY MELISA Administration Prednisone 20 mg 05/06/18 09:00 PO DAILY MELISA Sodium Bicarbonate 650 mg 05/03/18 21:00 05/05/18 08:21 Sodium Bicarbonate Tab PO 650 mg BID MELISA Administration Tamsulosin HCl 0.4 mg 05/02/18 17:30 05/04/18 16:03 Flomax PO 0.4 mg AC-SUPPER MELISA Administration Verapamil HCl 240 mg 05/03/18 09:00 05/05/18 08:21 Isoptin Sr PO 240 mg DAILY MELISA Administration Intake and Output 05/04/18 05/05/18 05/05/18 22:59 06:59 14:59 Intake Total 400 80 Output Total 300 800 Balance 100 -720 Intake: Intake, IV Titration 400 80 Amount Sodium Chloride 0.45% 1, 400 80 000 ml @ 50 mls/hr IV . Q20H [facility] Rx#:[id number] Output: Urine 300 800 Uretheral ([place]govern) 800 Other: Voiding Method Indwelling Catheter Indwelling Catheter Indwelling Catheter # Bowel Movements 1 Weight 104.326 kg 05/05/18 08:22 05/05/18 08:22
[2018-05-05 17:24] LABS: Glucose,Whole Blood 473 mg/dL (75-99)
[2018-05-05] MEDS ORDERED: INSULIN NPH 300 UNIT/3 ML VIAL SQ SCH (17:30)
--- NOTE | 2018-05-05 17:38 | PN ---
PROGRESS NOTE DATE OF SERVICE: 05/05/2018. REASON FOR FOLLOW UP: Streptococcus agalactiae bacteremia and left lower extremity cellulitis. INTERVAL HISTORY: The patient is afebrile. He is breathing more comfortably. He denies having any chest pain. No cough. No abdominal pain or any pain to the left leg area. EXAMINATION: Blood pressure 139/64 with a pulse of 61, temperature 98. He is 96% on room air. General description is an elderly male lying in bed in no distress. Respiratory system: Unlabored breathing, clear to auscultation anteriorly. Heart S1, S2. Regular rate and rhythm. Abdomen is soft. No tenderness. Left leg swelling and redness minimally decreased. No drainage. LABS: Hemoglobin 9.8, white count 15.5. BUN of 73, creatinine is 2.85. DIAGNOSTIC IMPRESSION AND PLAN: Patient with acute left lower extremity cellulitis with Streptococcus agalactiae bacteremia for which the patient currently covered with cefazolin, that will be continued for now. He did have slight jump in white count that will be monitored closely could be related to steroid. Continue supportive care. MMODL / IJN: [id number] /
[2018-05-05] MEDS: TAMSULOSIN 0.4 MG CAP.ER.24H PO SCH (17:40)
[2018-05-05 20:00] LABS: Glucose,Whole Blood 444 mg/dL (75-99)
[2018-05-05] MEDS ORDERED: INSULIN REGULAR BOLUS (FROM DRIP BAG) IV ONE (20:38)
[2018-05-05] MEDS: INSULIN REGULAR 100 UNIT in SODIUM CHLORIDE 0.9% 100 ML IV SCH (21:36)
[2018-05-05 22:03] LABS: Glucose,Whole Blood 371 mg/dL (75-99)
[2018-05-05 22:35] LABS: Glucose,Whole Blood 355 mg/dL (75-99)
[2018-05-05 23:03] LABS: Glucose,Whole Blood 268 mg/dL (75-99)
[2018-05-05 23:26] LABS: Glucose,Whole Blood 261 mg/dL (75-99)
[2018-05-05 23:57] LABS: Glucose,Whole Blood 217 mg/dL (75-99)
[2018-05-06 02:07] LABS: Glucose,Whole Blood 115 mg/dL (75-99)
[2018-05-06 03:04] LABS: Glucose,Whole Blood 86 mg/dL (75-99)
[2018-05-06] MEDS: INSULIN ASPART 100 UNIT/ML 1 ML 10 ML VIAL SQ SCH ×4 (03:15→22:38)
[2018-05-06 04:12] LABS: Hemoglobin A1C 8.1 % (4.0-6.0)
[2018-05-06 04:17] LABS: Glucose,Whole Blood 82 mg/dL (75-99)
[2018-05-06 05:20] LABS: Glucose,Whole Blood 80 mg/dL (75-99)
[2018-05-06] MEDS: LEVOTHYROXINE 100 MCG TAB PO SCH (05:34)
[2018-05-06 05:55] LABS: Glucose,Whole Blood 132 mg/dL (75-99)
[2018-05-06] MEDS: INSULIN REGULAR 100 UNIT in SODIUM CHLORIDE 0.9% 100 ML IV SCH (06:44)
[2018-05-06 06:57] LABS: Glucose,Whole Blood 125 mg/dL (75-99)
[2018-05-06] MEDS: IPRATROPIUM-ALBUTEROL 3 ML NEB INHALATION SCH ×4 (07:04→19:38)
[2018-05-06] MEDS ORDERED: INSULIN NPH 300 UNIT/3 ML VIAL SQ SCH ×2 (07:30→17:30)
[2018-05-06 08:23] LABS: Glucose,Whole Blood 151 mg/dL (75-99)
[2018-05-06] MEDS: PANTOPRAZOLE 40 MG TABLET PO SCH (09:03)
[2018-05-06] MEDS: predniSONE 20 MG TAB PO SCH (09:03)
[2018-05-06] MEDS: HEPARIN SODIUM,PORCINE 5,000 UNIT/ML 1 ML VIAL SQ SCH ×3 (09:03→23:16)
[2018-05-06] MEDS: ATENOLOL 25 MG TAB PO SCH (09:03)
[2018-05-06] MEDS: SODIUM BICARBONATE TAB 650 MG TAB PO SCH ×2 (09:03→20:32)
[2018-05-06] MEDS: VERAPAMIL SR 240 MG TABLET.ER PO SCH (09:04)
[2018-05-06] MEDS: POLYETHYLENE GLYCOL 3350 17 GM POWD.PACK PO SCH (09:04)
[2018-05-06] MEDS: AMMONIUM LACTATE 12% CREAM 140 GM TUBE TOPICAL SCH ×2 (09:11→20:32)
[2018-05-06] MEDS: NEOMYCIN-BACITRACIN-POLY OINT 14 GM TUBE TOPICAL SCH (09:12)
[2018-05-06] MEDS: ceFAZolin IN SWFI 2 GM/20 ML SYRINGE IVP SCH ×2 (09:13→20:32)
[2018-05-06 09:50] LABS: Glucose,Whole Blood 192 mg/dL (75-99)
[2018-05-06] MEDS ORDERED: FUROSEMIDE 10 MG/ML 4 ML VIAL IV STA (10:28)
[2018-05-06] MEDS: INSULIN NPH 300 UNIT/3 ML VIAL SQ SCH (11:07)
[2018-05-06 11:18] LABS: Glucose,Whole Blood 184 mg/dL (75-99)
[2018-05-06 14:15] LABS: Potassium 5.4 mmol/L (3.5-5.1)
--- NOTE | 2018-05-06 14:17 | P.PN ---
Subjective Progress Note Date: 05/06/18 77 years old male patient of Dr. Venegas with past medical history of asthma, COPD, diabetes, hypertension, hypothyroidism, history of lymphoma status post chemotherapy and radiation, history of colitis, history of coronary artery disease status post CABG, history of sick sinus syndrome status post pacemaker in 2001 , patient was recently hospitalized at [facility] for urinary retention and had immediate relief of obstruction and dyspnea immediately after placing a Mcgarry catheter.patient ended-up getting discharged and he was doing well and he had followe dup with and but he ended up coming to the ER because of increased chills and fever with abdominal pain, was seen in the ER and was found to have ROGE and significant urinary retention with almost 1500 ml urine output and CXR showed possible basilar pneumonia possibly gram negative , so he was started on Levaquin and Zosyn and was admitted to the hospital for treatment. 05/03: Repeat lab work shows a hemoglobin of 8.8, white count of 11.6, CO2 18, BUN 77 creatinine 3.45. Blood sugars are running in the low 200s. Renal ultrasound reveals right-sided renal cortical cyst. Mild left-sided hydronephrosis. No evidence of solid renal mass. Consult with Dr. Márquez will be added. Patient is known to Dr. Márquez in the past. Patient states that his breathing is improved today. He still continues to have little cough. He is using Lac-Hydrin with improvement of his dry skin. Consult added for Dr. Redding to trim patient's nails. IV fluids will be decreased to 75 mL per hour. 05/04: Patient has been seen by Dr. Murry for acute kidney injury with metabolic acidosis recommendations to maintain on IV fluids, sodium bicarb. Patient states that he is feeling much better today. He denies any abdominal pain. No chest pain. Blood culture is positive for strep echo lacteal. Patient gives history that about 1-2 months ago he had to have a cracked tooth and was on antibiotics. Consult with Dr. Castillo added, echocardiogram and repeat blood culture ordered. Patient has had good urine output and Mcgarry catheter remains in place. Physical therapy has recommended home with homecare. VNA has been arranged. After patient had echocardiogram completed, he went into a sinus tachycardia 130s with chest pain rating down his arm. He did receive 2 nitroglycerin and cardiology consult was requested. Patient did convert to a normal sinus rhythm and chest pain was resolved. 05/05: Renal function is improving with BUN of 63 and creatinine 2.85. Blood sugars are running quite high in the 200s and 300s. Humulin and will be increased to 26 units at breakfast and 16 units with supper and continue NovoLog scale. Prednisone will be decreased to 20 mg daily. Patient was seen by Dr. Redding yesterday and nails weren't of bright red and simple excision was performed on the dystrophic ingrowing nail on the left helix with removal of the entire nail plate to the proximal nail fold. Patient to be on topical antibiotics. Echocardiogram reveals EF of 35-40% with suboptimal views, mild concentric left ventricular hypertrophy, mild mitral regurgitation and mild tricuspid regurgitation. There is no mention of vegetation. Patient is followed by Dr. Castillo and Zosyn and Levaquin were discontinued and patient started on Kefzol. Patient has Andrew wraps to both legs. Repeat blood cultures status received. Cardiology is on consult. Anticipate possible discharge tomorrow with VNA 05/06: Last evening, blood sugars jumped into the 400s and patient was started on insulin drip. This morning he is back to 192. He will be placed back on insulin NPH at 26 units in the morning and 16 units in the supper and insulin drip will be discontinued. Plan to recheck lab work tomorrow and possible discharge to home tomorrow. Mcgarry catheter is to remain in place. Review of Systems Constitutional: Denies chills, Reports fatigue, denies fever, Reports weakness Eyes: denies blurred vision, denies bulging eye, denies decreased vision, denies diplopia Ears, nose, mouth and throat: Denies dysphagia, Denies sore throat Cardiovascular: Reports decreased exercise tolerance, Reports dyspnea on exertion, denies shortness of breath, Denies chest pain, Denies syncope Respiratory: Reports cough, Reports cough with sputum, Denies congestion, Denies home oxygen, Denies sleep apnea, Denies snoring, Denies wheezing Gastrointestinal: Reports abdominal pain, Denies BRBPR, Denies change in bowel habits, Denies heartburn, Denies melena, Denies nausea, Denies vomiting Genitourinary: Reports dysuria, Reports urinary retention Musculoskeletal: Reports atrophy, Reports gait dysfunction Musculoskeletal: absent: ankle pain, ankle stiffness, ankle swelling, elbow pain , elbow stiffness, elbow swelling, foot pain, foot stiffness, foot swelling, hand pain, hand stiffness, hand swelling, hip pain, hip stiffness, hip swelling , knee pain, knee stiffness, knee swelling, shoulder pain, shoulder stiffness, shoulder swelling, wrist pain, wrist stiffness, wrist swelling Integumentary: Denies pruritus, Denies rash Neurological: Denies numbness, Denies weakness Psychiatric: Denies anxiety, Denies depression Endocrine: Denies fatigue, Denies weight change, complains of hyperglycemia Objective - Vital Signs Vital signs: Vital Signs Temp 98.0 F 05/06/18 04:36 Pulse 77 05/06/18 07:17 Resp 16 05/06/18 04:36 BP 145/65 05/06/18 04:36 Pulse Ox 97 05/06/18 04:36 Intake & Output 05/05/18 05/06/18 05/06/18 18:59 06:59 18:59 Intake Total 600 411.153 1.067 Output Total 1300 Balance 600 -888.847 1.067 Weight 104.326 kg Intake: Intake, IV Titration 61.153 1.067 Amount Insulin Regular 100 unit 61.153 1.067 In Sodium Chloride 0.9% 100 ml @ Titrate IV .Q0M [facility] Rx#:[id number] Oral 600 350 Output: Urine 1300 Other: Voiding Method Indwelling Catheter Indwelling Catheter Indwelling Catheter - Exam General appearance: average body habitus, no distress. - EENT Eyes: anicteric sclerae, EOMI, PERRLA, no ptosis, no scleral icterus, normal appearance ENT: hard of hearing, NA/AT, normal oropharynx Ears: bilateral: normal - Neck Neck: no lymphadenopathy, normal ROM, no rigidity, no stridor, no thyromegaly Carotids: bilateral: upstroke delayed - Respiratory Respiratory: bilateral: diminished, prolonged expiration, negative: dullness, rales, rhonchi, wheezing - Cardiovascular Rhythm: regular Heart sounds: normal: S1, S2 Abnormal Heart Sounds: systolic murmur - Gastrointestinal General gastrointestinal: normal bowel sounds, soft, no tenderness, Mcgarry catheter draining clear darren urine. - Integumentary Integumentary: normal, normal turgor (there sever Xerosis of both legs with thick sloughing skin.) - Neurologic Neurologic: CNII-XII intact - Musculoskeletal Musculoskeletal: gait normal, generalized weakness - Psychiatric Psychiatric: A&O x's 3, appropriate affect, intact judgment & insight - Labs CBC & Chem 7: 05/05/18 08:22 05/05/18 08:22 Labs: Abnormal Lab Results - Last 24 Hours (Table) 05/05/18 05/05/18 05/05/18 Range/Units 11:27 14:00 17:22 POC Glucose (mg/dL) 320 H 473 H (75-99) mg/dL Hemoglobin A1c (4.0-6.0) % Troponin I 0.035 H* (0.000-0.034) ng/mL 05/05/18 05/05/18 05/05/18 Range/Units 19:58 20:46 22:02 POC Glucose (mg/dL) 444 H 371 H (75-99) mg/dL Hemoglobin A1c 8.1 H (4.0-6.0) % Troponin I (0.000-0.034) ng/mL 05/05/18 05/05/18 05/05/18 Range/Units 22:33 23:01 23:25 POC Glucose (mg/dL) 355 H 268 H 261 H (75-99) mg/dL Hemoglobin A1c (4.0-6.0) % Troponin I (0.000-0.034) ng/mL 05/05/18 05/06/18 05/06/18 Range/Units 23:55 02:02 05:53 POC Glucose (mg/dL) 217 H 115 H 132 H (75-99) mg/dL Hemoglobin A1c (4.0-6.0) % Troponin I (0.000-0.034) ng/mL 05/06/18 05/06/18 05/06/18 Range/Units 06:55 08:22 09:49 POC Glucose (mg/dL) 125 H 151 H 192 H (75-99) mg/dL Hemoglobin A1c (4.0-6.0) % Troponin I (0.000-0.034) ng/mL Microbiology - Last 24 Hours (Table) 05/04/18 14:02 Blood Culture - Preliminary Blood No Growth after 24 hours Assessment and Plan Plan: 1. Acute kidney injury with metabolic acidosis due to obstructive uropathy. continue mcgarry catheter and flomax 0.4 mg orally daily. US of the kidneys and bladder as above. Consult with Dr. Márquez regarding mild hydronephrosis. Consult with Dr. Murry appreciated. Sodium bicarb started. Patient is off IV fluids. 2. Possible gram negative pneumonia. we will continue with Levaquin and Zosyn , we will continue with supportive care, and Neb Rx . 3. Diabetes mellitus type 2 . we will continue with Novolin 70/30 and glipizide and will continue with BGM ACHS. Insulin drip will be discontinued. 4. Hypertension and hypertensive cardiovascular disease. will continue with Lisinopril 10 mg orally daily, Atenolol 25 mg orally daily and Verapamil 240 mg orally daily. 5. Hyperlipidemia. we will continue with low cholesterol diet. 6. CAD post CABG. we will continue with Atenolol 25 mg orally daily and ASA 81 mg orally daily. 7. BPH. we will continue with Flomax and Mcgarry catheter. 8. Hypothyroidism. we will continue with synthroid 100 mcg orally daily. 9. Xerosis of both legs and poor feet hygiene . we will start Ammonium Lactate 12 % bid and will need Podiatry consult., 10. COPD. we will continue with Neb Rx and prednisone and supportive care. 11. DVT prophylaxis. we will continue with Heparin 5000 units sq q 8 h. 12. GI prophylaxis. we will continue withnProtonix 40 mg IVP daily. 13. Onychomycosis. Consult with Dr. Redding to trim nails. 14. Strep bacteremia. Repeat blood culture ordered, consult with Dr. Castillo, echocardiogram ordered. Antibiotics changed to Kefzol. 15. Supraventricular tachycardia with chest pain and converted to normal sinus rhythm. Echocardiogram as above, cardiology consult Full code. Discharge plan: Home with VNA tomorrow Impression and plan of care have been directed as dictated by the signing physician. Radha Loco nurse practitioner acting as scribe for signing physician.
[2018-05-06 17:04] LABS: Glucose,Whole Blood 251 mg/dL (75-99)
[2018-05-06] MEDS: TAMSULOSIN 0.4 MG CAP.ER.24H PO SCH (18:33)
[2018-05-06 20:59] LABS: Glucose,Whole Blood 298 mg/dL (75-99)
--- NOTE | 2018-05-06 22:42 | PN ---
PROGRESS NOTE DATE OF SERVICE: 05/06/2018 REASON FOR FOLLOWUP: Left lower extremity cellulitis with group B strep bacteremia. INTERVAL HISTORY: The patient is currently afebrile. He has been breathing fairly comfortably. Denies having any chest pain or cough. No worsening pain to the left leg area. Denies having any diarrhea with antibiotic therapy. PHYSICAL EXAMINATION: His vital signs are reviewed, stable. LUNGS: Unlabored breathing. Clear to auscultation anteriorly. HEART: S1, S2. Regular rate and rhythm. ABDOMEN: Soft. No tenderness. Left leg did have slight swelling, minimal redness, but no or any drainage. LABS: Labs were reviewed. DIAGNOSTIC IMPRESSION AND PLAN: Patient with acute left lower extremity cellulitis with group B strep bacteremia. Patient is currently covered with cefazolin 2 grams q.12. That will continue. Transition to oral antibiotic on discharge. Continue with supportive care. MMODL / IJN: [id number] /
--- NOTE | 2018-05-06 23:29 | PN ---
PROGRESS NOTE Patient is seen for followup for acute kidney injury on top of chronic kidney disease. His serum creatinine has decreased from about 3.7 initially to about 2.8 to 2.9 now. Previous creatinine was as low as 1.4 on 04/22/2018. Currently patient is being diuresed. He has received Lasix x1. Patient did have significant swelling in his lower extremities. He states it is slightly better. Serum potassium has also been staying on the higher side. Patient has an indwelling Mcgovern catheter. He has good urine output. On examination today, blood pressure was 170/70, heart rate 80 per minute. He is afebrile. EXAMINATION OF THE HEART: S1, S2. EXAMINATION OF LUNGS: Bilateral breath sounds are heard. ABDOMEN: Soft, non-tender, obese. Examination of lower extremities shows chronic skin changes with chronic edema bilaterally. [employer] exam is 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. Labs show sodium 140, potassium 5.4, chloride 114. CO2 is 18, BUN 65, serum creatinine 2.95. ASSESSMENT: 1. Acute kidney injury, most likely cardiorenal. Renal function is slightly better. I will maintain patient on regular dose of loop diuretics. 2. Cardiomyopathy, ejection fraction 35% to 40%. 3. Congestive heart failure, systolic, acute on top of chronic, currently slightly better. 4. Coronary artery disease with history of coronary artery bypass surgery, being followed by Cardiology. 5. Group B strep bacteremia with repeat cultures currently negative. 6. Chronic kidney disease, NKF stage III, with previous creatinine at 1.4 mg/dL on 04/22/2018. Etiology is diabetic nephropathy and nephrosclerosis, NKF stage III. 7. Previous history of hydronephrosis on the right side with nephrolithiasis in October of 2017. 8. Urinary retention with indwelling Mcgovern catheter placed on last admission. 9. Metabolic acidosis secondary to renal failure, currently improved. Continue with oral sodium bicarb. 10.Hyperkalemia associated with acute kidney injury, hyperglycemia and metabolic acidosis. PLAN: Control blood sugars. Increase sodium bicarb. Continue off of GISELE inhibitors. Add loop diuretics and repeat labs in a.m. MMODL / IJN: [id number] /
[2018-05-07 00:25] VITALS: RESP 16
[2018-05-07] MEDS: LEVOTHYROXINE 100 MCG TAB PO SCH (05:52)
[2018-05-07 06:22] VITALS: BP 144/74; TEMP 97.4
[2018-05-07 07:06] LABS: Glucose,Whole Blood 127 mg/dL (75-99)
[2018-05-07] MEDS: INSULIN ASPART 100 UNIT/ML 1 ML 10 ML VIAL SQ SCH ×2 (07:36→12:42)
[2018-05-07] MEDS: predniSONE 20 MG TAB PO SCH (08:00)
[2018-05-07] MEDS: PANTOPRAZOLE 40 MG TABLET PO SCH (08:00)
[2018-05-07] MEDS: ATENOLOL 25 MG TAB PO SCH (08:01)
[2018-05-07] MEDS: VERAPAMIL SR 240 MG TABLET.ER PO SCH (08:01)
[2018-05-07] MEDS: POLYETHYLENE GLYCOL 3350 17 GM POWD.PACK PO SCH (08:01)
[2018-05-07] MEDS: ceFAZolin IN SWFI 2 GM/20 ML SYRINGE IVP SCH (08:01)
[2018-05-07] MEDS: HEPARIN SODIUM,PORCINE 5,000 UNIT/ML 1 ML VIAL SQ SCH (08:01)
[2018-05-07] MEDS: NEOMYCIN-BACITRACIN-POLY OINT 14 GM TUBE TOPICAL SCH (08:02)
[2018-05-07] MEDS: AMMONIUM LACTATE 12% CREAM 140 GM TUBE TOPICAL SCH (08:02)
[2018-05-07 08:04] LABS: Basophils % (A) 0 %; Eosinophils # (A) 0.1 k/uL (0-0.7); Eosinophils % (A) 1 %; HCT 30.3 % (39.0-53.0); HGB 9.6 gm/dL (13.0-17.5); Lymphocytes # (A) 1.3 k/uL (1.0-4.8); Lymphocytes % (A) 12 %; MCH 30.1 pg (25.0-35.0); MCHC 31.8 g/dL (31.0-37.0); MCV 94.7 fL (80.0-100.0); Mean Platelet Volume 7.3; Monocytes # (A) 0.4 k/uL (0-1.0); Monocytes % (A) 3 %; Neutrophils # (A) 8.8 k/uL (1.3-7.7); Neutrophils % (A) 83 %; Platelet Count 171 k/uL (150-450); RDW 14.8 % (11.5-15.5); WBC 10.5 k/uL (3.8-10.6)
[2018-05-07] MEDS: IPRATROPIUM-ALBUTEROL 3 ML NEB INHALATION SCH ×2 (08:04→11:11)
[2018-05-07 08:12] LABS: Albumin 2.7 g/dL (3.5-5.0); Calcium 8.9 mg/dL (8.4-10.2); Magnesium 2.4 mg/dL (1.6-2.3); Potassium 5.2 mmol/L (3.5-5.1); Total Bilirubin 0.4 mg/dL (0.2-1.3); Total Protein 5.7 g/dL (6.3-8.2)
[2018-05-07] MEDS ORDERED: SODIUM BICARBONATE TAB 650 MG TAB PO SCH (09:00)
[2018-05-07] MEDS: INSULIN NPH 300 UNIT/3 ML VIAL SQ SCH (11:30)
[2018-05-07 11:31] VITALS: PULSE 77
[2018-05-07 11:37] LABS: Glucose,Whole Blood 243 mg/dL (75-99)
--- NOTE | 2018-05-07 11:46 | PN ---
PROGRESS NOTE Patient is seen for followup for acute kidney injury on top of chronic kidney disease. Renal function has improved to some degree. The patient has been diuresed gently. He also has hyperkalemia. His potassium is staying at about 5.2 mEq/L. Blood sugar was significantly elevated, which is contributing to the hyperkalemia. Patient is being discharged today. He does have an indwelling Mcgovern catheter for urine retention from his last admission. PHYSICAL EXAMINATION: Blood pressure was 144/74, heart rate is 72 per minute, patient is afebrile. Examination of the heart, S1, S2. Examination of the lungs, bilateral breath sounds are heard. No crackles or wheezing is heard. Abdomen is soft, nontender. Examination of the lower extremities shows significant chronic skin changes with erythema and cellulitis noted in the right and left lower extremity. LAB: 1. Show sodium 140, potassium 5.2, chloride 115, CO2 17, BUN 67, serum creatinine 2.7, hemoglobin 9.6 g/dL, albumin 2.7. ASSESSMENT: 1. Acute kidney injury, currently nonoliguric, mainly cardiorenal with improvement in renal function since admission. Patient will be maintained on loop diuretics. 2. Cardiomyopathy, ejection fraction 35%-40%. 3. Congestive heart failure, acute on top of chronic, systolic. 4. Coronary artery disease with history of coronary artery bypass surgery. 5. Group B Strep bacteremia with repeat blood cultures negative. 6. CKD and gave stage III previous creatinine about 1.4 secondary to diabetic nephropathy, nephrosclerosis, and some degree of obstructive uropathy as well. 7. Previous history of hydronephrosis, mainly on the right side with nephrolithiasis in October of 2017, currently with chronic indwelling Mcgovern catheter for urine retention from last admission. 8. Metabolic acidosis. Maintained the currently improved, maintained on sodium bicarb. 9. Mild hyperkalemia associated with chronic kidney disease as well as elevated blood sugars. Expect improvement with regular loop diuretics. PLAN: Discharge patient on Lasix 40 mg p.o. daily. Follow up as outpatient in about 1 week's time. Repeat labs in about 3-4 days post discharge. MMODL / IJN: [id number] /
--- NOTE | 2018-05-07 12:01 | P.PN ---
Subjective Progress Note Date: 05/06/18 Principal diagnosis: Dystrophic mycotic ingrowing nail left hallux follow-up Patient is seen at bedside for follow-up of removal of nail plate due to dystrophic ingrowing mycosis. Of the left hallux. Patient has the wound covered with a Band-Aid and voices no complaints Objective - Vital Signs Vital signs: Vital Signs Temp 97.4 F L 05/07/18 05:00 Pulse 77 05/07/18 11:21 Resp 16 05/07/18 05:00 BP 144/74 05/07/18 05:00 Pulse Ox 97 05/07/18 05:00 Intake & Output 05/06/18 05/07/18 05/07/18 18:59 06:59 18:59 Intake Total 161.067 600 Output Total 1800 4000 Balance -1638.933 -3400 Weight 104.326 kg 104.326 kg Intake: IV 160 0.9 160 Intake, IV Titration 1.067 Amount Insulin Regular 100 unit 1.067 In Sodium Chloride 0.9% 100 ml @ Titrate IV .Q0M [facility] Rx#:[id number] Oral 600 Output: Urine 1800 4000 Uretheral (Mcgovern) 2200 Other: Voiding Method Indwelling Catheter Indwelling Catheter Indwelling Catheter # Voids 2 2 # Bowel Movements 1 - Exam No erythema no edema no clinical sign of infection left hallux the nail bed appears to be healing well without incident - Labs CBC & Chem 7: 05/07/18 06:45 05/07/18 06:45 Labs: Abnormal Lab Results - Last 24 Hours (Table) 05/06/18 05/06/18 05/06/18 Range/Units 13:41 17:02 20:48 RBC (4.30-5.90) m/uL Hgb (13.0-17.5) gm/dL Hct (39.0-53.0) % Neutrophils # (1.3-7.7) k/uL Potassium 5.4 H (3.5-5.1) mmol/L Chloride 114 H (98-107) mmol/L Carbon Dioxide 18 L (22-30) mmol/L BUN 65 H (9-20) mg/dL Creatinine 2.95 H (0.66-1.25) mg/dL Glucose 214 H (74-99) mg/dL POC Glucose (mg/dL) 251 H 298 H (75-99) mg/dL Magnesium (1.6-2.3) mg/dL Total Protein (6.3-8.2) g/dL Albumin (3.5-5.0) g/dL 05/07/18 05/07/18 05/07/18 Range/Units 06:45 06:45 07:04 RBC 3.20 L (4.30-5.90) m/uL Hgb 9.6 L (13.0-17.5) gm/dL Hct 30.3 L (39.0-53.0) % Neutrophils # 8.8 H (1.3-7.7) k/uL Potassium 5.2 H (3.5-5.1) mmol/L Chloride 115 H (98-107) mmol/L Carbon Dioxide 17 L (22-30) mmol/L BUN 67 H (9-20) mg/dL Creatinine 2.72 H (0.66-1.25) mg/dL Glucose 113 H (74-99) mg/dL POC Glucose (mg/dL) 127 H (75-99) mg/dL Magnesium 2.4 H (1.6-2.3) mg/dL Total Protein 5.7 L (6.3-8.2) g/dL Albumin 2.7 L (3.5-5.0) g/dL 05/07/18 Range/Units 11:35 RBC (4.30-5.90) m/uL Hgb (13.0-17.5) gm/dL Hct (39.0-53.0) % Neutrophils # (1.3-7.7) k/uL Potassium (3.5-5.1) mmol/L Chloride (98-107) mmol/L Carbon Dioxide (22-30) mmol/L BUN (9-20) mg/dL Creatinine (0.66-1.25) mg/dL Glucose (74-99) mg/dL POC Glucose (mg/dL) 243 H (75-99) mg/dL Magnesium (1.6-2.3) mg/dL Total Protein (6.3-8.2) g/dL Albumin (3.5-5.0) g/dL Microbiology - Last 24 Hours (Table) 05/04/18 14:02 Blood Culture - Preliminary Blood No Growth after 48 hours Assessment and Plan Assessment: Mycotic nails 10 Onychocryptosis left hallux Xerosis bilateral Systemic conditions as documented above. Plan: Exam. Will continue local wound care for another week 10 days. At that time patient can discontinue the Band-Aid and antibiotic ointment. Patient should present to our clinic for follow-up upon discharge. Thank you for this consult
--- NOTE | 2018-05-07 14:22 | P.DS ---
Providers Date of admission: 05/02/18 11:29 Expected date of discharge: 05/06/18 Attending physician: Catherine Broderick Consults: 05/02/18 11:17 Consult Physician Routine Consulting Provider: Lesly Murry Consult Reason/Comments: acute renal failure Do you want consulting provider notified?: Yes 05/03/18 12:09 Consult Physician Routine Consulting Provider: Singh Redding Consult Reason/Comments: toenails Do you want consulting provider notified?: Yes 05/03/18 12:10 Consult Physician Routine Consulting Provider: Samuel Márquez Consult Reason/Comments: mild hydronethrosis Do you want consulting provider notified?: Yes 05/04/18 11:28 Consult Physician Routine Consulting Provider: Susanne Castillo Consult Reason/Comments: bacteremia Do you want consulting provider notified?: Yes 05/04/18 12:23 Consult Physician Urgent Consulting Provider: Paige Cordova Consult Reason/Comments: chest pain Do you want consulting provider notified?: Yes Primary care physician: Samuel Venegas [facility] Course: 77 years old male patient of Dr. Venegas with past medical history of asthma, COPD, diabetes, hypertension, hypothyroidism, history of lymphoma status post chemotherapy and radiation, history of colitis, history of coronary artery disease status post CABG, history of sick sinus syndrome status post pacemaker in 2001 , patient was recently hospitalized at [facility] for urinary retention and had immediate relief of obstruction and dyspnea immediately after placing a Mcgovern catheter.patient ended-up getting discharged and he was doing well and he had followe dup with and but he ended up coming to the ER because of increased chills and fever with abdominal pain, was seen in the ER and was found to have ROGE and significant urinary retention with almost 1500 ml urine output and CXR showed possible basilar pneumonia possibly gram negative , so he was started on Levaquin and Zosyn and was admitted to the hospital for treatment. 05/03: Repeat lab work shows a hemoglobin of 8.8, white count of 11.6, CO2 18, BUN 77 creatinine 3.45. Blood sugars are running in the low 200s. Renal ultrasound reveals right-sided renal cortical cyst. Mild left-sided hydronephrosis. No evidence of solid renal mass. Consult with Dr. Márquez will be added. Patient is known to Dr. Márquez in the past. Patient states that his breathing is improved today. He still continues to have little cough. He is using Lac-Hydrin with improvement of his dry skin. Consult added for Dr. Redding to trim patient's nails. IV fluids will be decreased to 75 mL per hour. 05/04: Patient has been seen by Dr. Murry for acute kidney injury with metabolic acidosis recommendations to maintain on IV fluids, sodium bicarb. Patient states that he is feeling much better today. He denies any abdominal pain. No chest pain. Blood culture is positive for strep echo lacteal. Patient gives history that about 1-2 months ago he had to have a cracked tooth and was on antibiotics. Consult with Dr. Castillo added, echocardiogram and repeat blood culture ordered. Patient has had good urine output and Mcgovern catheter remains in place. Physical therapy has recommended home with homecare. [facility] has been arranged. After patient had echocardiogram completed, he went into a sinus tachycardia 130s with chest pain rating down his arm. He did receive 2 nitroglycerin and cardiology consult was requested. Patient did convert to a normal sinus rhythm and chest pain was resolved. 05/05: Renal function is improving with BUN of 63 and creatinine 2.85. Blood sugars are running quite high in the 200s and 300s. Humulin and will be increased to 26 units at breakfast and 16 units with supper and continue NovoLog scale. Prednisone will be decreased to 20 mg daily. Patient was seen by Dr. Redding yesterday and nails weren't of bright red and simple excision was performed on the dystrophic ingrowing nail on the left helix with removal of the entire nail plate to the proximal nail fold. Patient to be on topical antibiotics. Echocardiogram reveals EF of 35-40% with suboptimal views, mild concentric left ventricular hypertrophy, mild mitral regurgitation and mild tricuspid regurgitation. There is no mention of vegetation. Patient is followed by Dr. Castillo and Zosyn and Levaquin were discontinued and patient started on Kefzol. Patient has Andrew wraps to both legs. Repeat blood cultures status received. Cardiology is on consult. Anticipate possible discharge tomorrow with [facility] 05/06: Patient denies any new complaints. His breathing status is stable today. He is to maintain Mcgovern catheter and follow Dr. Márquez. IV antibiotics will be still transitioned to oral and patient will be discharged home today in stable condition. Discharge diagnoses: 1. Acute kidney injury with metabolic acidosis due to obstructive uropathy. 2. Possible gram negative pneumonia. 3. Diabetes mellitus type 2. 4. Hypertension and hypertensive cardiovascular disease. 5. Hyperlipidemia. 6. CAD post CABG. 7. BPH. 8. Hypothyroidism. 9. Xerosis of both legs and poor feet hygiene 10. COPD. 11. Onychomycosis. 12. Strep bacteremia. 13. Supraventricular tachycardia with chest pain and converted to normal sinus rhythm. Discharge plan: Home with [facility] Impression and plan of care have been directed as dictated by the signing physician. Radha Loco nurse practitioner acting as scribe for signing physician. Patient Condition at Discharge: Good Plan - Discharge Summary Discharge Rx Participant: No New Discharge Prescriptions: New Ammonium Lactate Cream [Lac-Hydrin 12% Cream] 1 applic TOPICAL BID cream Cephalexin [Keflex] 500 mg PO BID #28 cap Nrsakurf-Ehrthsongp-Dndk Oint [Triple Antibiotic Ointment] 1 applic TOPICAL DAILY applic Sodium Bicarbonate Tab 650 mg PO TID tab Continue glipiZIDE [Glucotrol XL] 5 mg PO DAILY Atenolol [Tenormin] 25 mg PO DAILY Ranitidine HCl 150 mg PO DAILY Levothyroxine Sodium [Synthroid] 100 mcg PO DAILY Furosemide [Lasix] 40 mg PO BID Insulin NPH Human Isophane [NovoLIN N] 20 unit SQ AC-BRKFST Insulin Regular, Human [NovoLIN R] See Protocol SQ AC-TID Insulin NPH Human Isophane [Humulin N] 12 unit SQ AC-SUPPER Verapamil HCl [Verapamil ER] 240 mg PO DAILY Albuterol Inhaler [Ventolin Hfa Inhaler] 1 - 2 puff INHALATION RT-Q4H PRN PRN Reason: Shortness Of Breath Albuterol Nebulized [Ventolin Nebulized] 2.5 mg INHALATION RT-QID Ipratropium Nebulized [Atrovent Nebulized] 0.05 mg INHALATION RT-QID Vit C/E/Zn/Coppr/Lutein/Zeaxan [Preservision Areds 2 Softgel] 1 cap PO BID Polyethylene Glycol 3350 [Miralax] 17 gm PO DAILY #7 packet Tamsulosin HCl [Flomax] 0.4 mg PO AC-SUPPER #30 capsule Hydrocortisone Suppository [Anusol-Hc] 25 mg RC BID #10 supp Discontinued Lisinopril [Prinivil] 10 mg PO DAILY Potassium Chloride [Klor-Con 20] 20 meq PO DAILY Discharge Medication List Atenolol [Tenormin] 25 mg PO DAILY 08/04/14 [History] Furosemide [Lasix] 40 mg PO BID 08/04/14 [History] Insulin NPH Human Isophane [NovoLIN N] 20 unit SQ AC-BRKFST 08/04/14 [History] Insulin Regular, Human [NovoLIN R] See Protocol SQ AC-TID 08/04/14 [History] Levothyroxine Sodium [Synthroid] 100 mcg PO DAILY 08/04/14 [History] Ranitidine HCl 150 mg PO DAILY 08/04/14 [History] glipiZIDE [Glucotrol XL] 5 mg PO DAILY 08/04/14 [History] Albuterol Inhaler [Ventolin Hfa Inhaler] 1 - 2 puff INHALATION RT-Q4H PRN [History] Albuterol Nebulized [Ventolin Nebulized] 2.5 mg INHALATION RT-QID 11/05/16 [ History] Insulin NPH Human Isophane [Humulin N] 12 unit SQ AC-SUPPER 11/05/16 [History] Ipratropium Nebulized [Atrovent Nebulized] 0.05 mg INHALATION RT-QID 11/05/16 [ History] Verapamil HCl [Verapamil ER] 240 mg PO DAILY 11/05/16 [History] Vit C/E/Zn/Coppr/Lutein/Zeaxan [Preservision Areds 2 Softgel] 1 cap PO BID 04/22 [History] Hydrocortisone Suppository [Anusol-Hc] 25 mg RC BID #10 supp 04/23/18 [Rx] Polyethylene Glycol 3350 [Miralax] 17 gm PO DAILY #7 packet 04/23/18 [Rx] Tamsulosin HCl [Flomax] 0.4 mg PO AC-SUPPER #30 capsule 04/23/18 [Rx] Ammonium Lactate Cream [Lac-Hydrin 12% Cream] 1 applic TOPICAL BID cream [Rx] Cephalexin [Keflex] 500 mg PO BID #28 cap 05/07/18 [Rx] Qxxajvrr-Ujqdfnlsmv-Ruvw Oint [Triple Antibiotic Ointment] 1 applic TOPICAL DAILY applic 05/07/18 [Rx] Sodium Bicarbonate Tab 650 mg PO TID tab 05/07/18 [Rx] Follow up Appointment(s)/Referral(s): [facility] [Provider Group] - 1 Week (Dr. Cordova's office will be calling patient with an appointment date and time. ) Lesly Murry MD [STAFF PHYSICIAN] - 1 Week (Dr. Murry's office will call patient with an appointment date and time. ) Sunil Mccann MD [REFERRING] - 1 Week (Patient to call Dr. Mccann's office to schedule follow up appointment. The office has questions for the patient before appointment can be made. ) Susanne Castillo MD [STAFF PHYSICIAN] - 05/11/18 3:15 pm Samuel Venegas MD [Primary Care Provider] - 05/14/18 1:00 pm [facility] Visiting Nurse, [NON-STAFF] - 1 Week Patient Instructions/Handouts: Cephalexin (By mouth), Acute Kidney Injury (DC) , Urinary Retention in Men (ED), Fever in Adults (GEN) Discharge Disposition: HOME WITH HOME HEALTH SERVICES
--- NOTE | 2018-05-07 14:31 | PN ---
PROGRESS NOTE DATE OF SERVICE: 05/07/2018 REASON FOR FOLLOWUP: Left leg cellulitis and replaced strep bacteremia. INTERVAL HISTORY: The patient is afebrile, he is breathing comfortably, patient denies having any chest pain, shortness of breath or cough, no abdominal pain or any pain to the left leg area. PHYSICAL EXAMINATION: Blood pressure is 144/74, pulse of 58, temperature 97.4. He is 97% on room air. General description is an elderly male, lying in bed in no distress. RESPIRATORY SYSTEM: Unlabored breathing, clear to auscultation anteriorly. HEART: S1, S2. Regular rate and rhythm. ABDOMEN: Soft, no tenderness. Left leg with minimal swelling, tenderness, no drainage. LABS: Hemoglobin 9 0.4-10.5 BUN of 67, creatinine 2.72. DIAGNOSTIC IMPRESSION AND PLAN: Patient with acute left leg cellulitis and patient did have strep bacteremia. PLAN: To finish therapy with oral Keflex from it b.i.d. for another 10 days with close outpatient followup. Continue supportive care. MMODL / IJN: [id number] /
[2018-05-08] MEDS ORDERED: FUROSEMIDE 40 MG TAB PO SCH (09:00)
--- NOTE | 2018-05-10 10:57 | CDI ---
Documentation Clarification Form Date: 05/10/18 From: Cindy Damion Aleyda Coffey, Reworker Hours-8:30 am & 5 pm M-F Admit Date: 05/02/2018 11:29:00 AM Patient Name: Vinnie Orozco Visit Number: [id number] Discharge Date: 05/07/2018 2:43:00 PM ATTENTION: The Clinical Documentation Specialists (CDI) and [facility] Coding Staff appreciate your assistance in clarifying documentation. Please respond to the clarification below the line at the bottom and electronically sign. The CDI & [facility] Coding staff will review the response and follow-up if needed. Please note: Queries are made part of the Legal Health Record. If you have any questions, please contact the author of this message via ITS. Dr. Catherine Broderick Bacteremia documented in the 05/05 consult, PNs 05/04, 05/05, 05/06, 05/07 and DS. Patient hx/risk factors: acute renal failure, acute systolic heart failure, gm neg pneumonia, DM, left leg cellulitis WBC: 17.6 Left Shift: 16.5 Blood Culture: Strept agalactiae - group B Consult: Dr Castillo Antibiotics: IV Ceftriaxone, IV Zosyn, IV Levaquin Bacteremia is considered a lab finding. Please clarify if that lab finding is clinical indicator of a more definitive medical diagnosis such as: Sepsis Severe Sepsis Other, please specify Unable to determine Sepsis, present on admission MTDD
== END 2018-05-07 14:43 | disposition home health service (06) | DRG 871 ==
LOC: EC 07:16 → 3NMEDONC 11:29
PROVIDERS: ADMIT Internal Medicine; ATTEND Internal Medicine
PROC: 0HTRXZZ Resection of Toe Nail, External Approach (ICD-10-PCS; principal; 2018-05-07)
DX: A40.1 Sepsis due to streptococcus, group B (principal); I50.21 Acute systolic (congestive) heart failure; J15.6 Pneumonia due to other Gram-negative bacteria; N17.9 Acute kidney failure, unspecified; E87.2 Acidosis; I13.0 Hypertensive heart and chronic kidney disease with heart failure and stage 1 through stage 4 chronic kidney disease, or unspecified chronic kidney disease; J44.0 Chronic obstructive pulmonary disease with (acute) lower respiratory infection; E27.40 Unspecified adrenocortical insufficiency; I47.1 Supraventricular tachycardia; I42.9 Cardiomyopathy, unspecified; L03.116 Cellulitis of left lower limb; N13.8 Other obstructive and reflux uropathy; N13.30 Unspecified hydronephrosis; E11.22 Type 2 diabetes mellitus with diabetic chronic kidney disease; E11.65 Type 2 diabetes mellitus with hyperglycemia; E86.0 Dehydration; I08.3 Combined rheumatic disorders of mitral, aortic and tricuspid valves; E87.5 Hyperkalemia; E83.41 Hypermagnesemia; N28.1 Cyst of kidney, acquired; N18.3 Chronic kidney disease, stage 3 (moderate); B35.1 Tinea unguium; E03.9 Hypothyroidism, unspecified; I87.2 Venous insufficiency (chronic) (peripheral); I25.10 Atherosclerotic heart disease of native coronary artery without angina pectoris; N40.1 Benign prostatic hyperplasia with lower urinary tract symptoms; R33.8 Other retention of urine; E78.5 Hyperlipidemia, unspecified; L60.0 Ingrowing nail; E66.9 Obesity, unspecified; Z68.33 Body mass index [BMI] 33.0-33.9, adult; L85.3 Xerosis cutis; Z79.4 Long term (current) use of insulin; Z79.82 Long term (current) use of aspirin; Z79.890 Hormone replacement therapy; Z79.899 Other long term (current) drug therapy; Z92.21 Personal history of antineoplastic chemotherapy; Z87.442 Personal history of urinary calculi; Z92.3 Personal history of irradiation; Z95.1 Presence of aortocoronary bypass graft; Z95.0 Presence of cardiac pacemaker; Z87.891 Personal history of nicotine dependence; Z85.72 Personal history of non-Hodgkin lymphomas; Z87.19 Personal history of other diseases of the digestive system; Z87.81 Personal history of (healed) traumatic fracture; Z82.49 Family history of ischemic heart disease and other diseases of the circulatory system; Z84.1 Family history of disorders of kidney and ureter
CPT/HCPCS: 36415; 51702; 71046; 76770; 80048; 80053; 81001; 82009; 82140; 82150; 82550; 82553; 83036; 83605; 83690; 83735; 84439; 84443; 84484; 85025; 85027; 87040; 87077; 87150; 87186; 87502; 93005; 93306; 94640; 94760; 96361; 96365; 96367; 99285

== ENCOUNTER 2018-05-31 13:52 | Emergency (ER) | payer MEDICARE ==
--- NOTE | 2018-05-31 17:55 | ED ---
General Adult HPI - General Chief complaint: Urogenital Stated complaint: Blood in urine Time Seen by Provider: 05/31/18 17:38 Source: patient, family, RN notes reviewed, old records reviewed Mode of arrival: wheelchair Limitations: physical limitation - History of Present Illness Initial comments: 77 -year-old male presenting with hematuria. Patient has had recent history of urinary retention, he had Mcgovern catheter placed several weeks ago, he didn't follow-up with urology, had catheter removed but doesn't require reinsertion for continued urinary retention. Patient's urine has been clear yellow, over the past 6-12 hours he is noticed some blood clots and red urine. Denies fever or chills. Denies pain. - Related Data Home Medications Medication Instructions Recorded Confirmed Atenolol [Tenormin] 25 mg PO DAILY 08/04/14 05/31/18 Furosemide [Lasix] 40 mg PO BID 08/04/14 05/31/18 Insulin NPH Human Isophane 20 unit SQ AC-BRKFST 08/04/14 05/31/18 [NovoLIN N] Insulin Regular, Human [NovoLIN R] See Protocol SQ AC-TID 08/04/14 05/31/18 Levothyroxine Sodium [Synthroid] 100 mcg PO DAILY 08/04/14 05/31/18 Ranitidine HCl 150 mg PO DAILY 08/04/14 05/31/18 glipiZIDE [Glucotrol XL] 5 mg PO DAILY 08/04/14 05/31/18 Albuterol Inhaler [Ventolin Hfa 1 - 2 puff INHALATION RT-Q4H PRN 11/05/16 Inhaler] Albuterol Nebulized [Ventolin 2.5 mg INHALATION RT-QID 11/05/16 05/31/18 Nebulized] Insulin NPH Human Isophane 12 unit SQ AC-SUPPER 11/05/16 05/31/18 [Humulin N] Ipratropium Nebulized [Atrovent 0.05 mg INHALATION RT-QID 11/05/16 05/31/18 Nebulized 0.2 MG/ML] Verapamil HCl [Verapamil ER] 240 mg PO DAILY 11/05/16 05/31/18 Vit C/E/Zn/Coppr/Lutein/Zeaxan 1 cap PO BID 04/22/18 05/31/18 [Preservision Areds 2 Softgel] Previous Rx's Medication Instructions Recorded Hydrocortisone Suppository 25 mg RC BID #10 supp 04/23/18 [Anusol-Hc] Polyethylene Glycol 3350 [Miralax] 17 gm PO DAILY #7 packet 04/23/18 Tamsulosin HCl [Flomax] 0.4 mg PO AC-SUPPER #30 capsule 04/23/18 Ammonium Lactate Cream [Lac-Hydrin 1 applic TOPICAL BID cream 05/07/18 12% Cream] Lpykbtef-Znbzmhrgmj-Uxia Oint 1 applic TOPICAL DAILY applic 05/07/18 [Triple Antibiotic Ointment] Sodium Bicarbonate Tab 650 mg PO TID tab 05/07/18 Allergies Allergy/AdvReac Type Severity Reaction Status Date / Time esmolol [From Brevibloc] Allergy Unknown Verified 05/31/18 17:55 Review of Systems ROS Statement: Those systems with pertinent positive or pertinent negative responses have been documented in the HPI. ROS Other: All systems not noted in ROS Statement are negative. Past Medical History Past Medical History: Asthma, Coronary Artery Disease (CAD), Cancer, Diabetes Mellitus, Hyperlipidemia, Hypertension, Prostate Disorder, Thyroid Disorder Additional Past Medical History / Comment(s): lymphoma, chemotherapy, radiation, - 06/2011 colitis History of Any Multi-Drug Resistant Organisms: None Reported Past Surgical History: Coronary Bypass/CABG, Orthopedic Surgery, Pacemaker Additional Past Surgical History / Comment(s): Lt ankle - plate. sinus surgery s/t cancer Past Anesthesia/Blood Transfusion Reactions: No Reported Reaction Date of Last Stent Placement:: 2001 Type of Cardiac Device: Permanent Pacemaker Device Placement Date:: 2001 Past Psychological History: No Psychological Hx Reported Smoking Status: Former smoker Past Alcohol Use History: None Reported Past Drug Use History: None Reported - Past Family History Brother(s) Additional Family Medical History / Comment(s): Patient has 3 brothers and one has history of coronary artery disease. Sister(s) Additional Family Medical History / Comment(s): Patient has one sister with history of SVT and AVR. Son(s) Additional Family Medical History / Comment(s): Patient has 2 sons and one has history of kidney stones. Patient does not have any daughters. Patient has a grandson treated for SVT. Father Family Medical History: No Reported History Additional Family Medical History / Comment(s): Father at age 72 with history of coronary artery disease and CABG Mother Family Medical History: No Reported History Additional Family Medical History / Comment(s): Mother at age 93 with history of coronary artery disease. General Exam Limitations: physical limitation General appearance: alert, in no apparent distress Head exam: Present: atraumatic, normocephalic Eye exam: Present: normal appearance, PERRL ENT exam: Present: normal exam Neck exam: Present: normal inspection. Absent: tenderness, meningismus Respiratory exam: Present: normal lung sounds bilaterally. Absent: respiratory distress, wheezes Cardiovascular Exam: Present: regular rate, normal rhythm GI/Abdominal exam: Present: soft. Absent: distended, tenderness, guarding exam: Present: normal inspection. Absent: testicular tenderness, scrotal swelling Extremities exam: Present: pedal edema Neurological exam: Present: alert, oriented X3, CN II-XII intact. Absent: motor sensory deficit Psychiatric exam: Present: normal affect, normal mood Skin exam: Present: warm, dry, intact. Absent: cyanosis, diaphoretic Course Vital Signs 05/31/18 14:51 Temperature 97.8 F Pulse Rate 65 Respiratory 18 Rate Blood Pressure 97/59 O2 Sat by Pulse 97 Oximetry Medical Decision Making - Medical Decision Making 77-year-old male with indwelling Mcgovern catheter presenting for hematuria. Patient hasn't light red urine with some very small clots in his Mcgovern catheter bag. Patient's catheter has been present for the past several weeks, this is exchanged in the emergency department with no difficulty. Hemoglobin stable for this patient, creatinine at baseline. Urinalysis does show hematuria greater than 185 with 25 white cells. Culture will be obtained. Patient will monitor urine, this may be secondary to bladder irritation from Mcgovern catheter. Please present with inability to urinate, significant hemorrhage, or no worsening symptoms. - Lab Data Result diagrams: 05/31/18 18:41 05/31/18 18:41 Lab Results 05/31/18 05/31/18 05/31/18 Range/Units 18:05 18:41 18:41 WBC 8.2 (3.8-10.6) k/uL RBC 3.21 L (4.30-5.90) m/uL Hgb 9.8 L (13.0-17.5) gm/dL Hct 29.5 L (39.0-53.0) % MCV 92.1 (80.0-100.0) fL MCH 30.5 (25.0-35.0) pg MCHC 33.1 (31.0-37.0) g/dL RDW 15.1 (11.5-15.5) % Plt Count 229 (150-450) k/uL Neutrophils % 66 % Lymphocytes % 23 % Monocytes % 7 % Eosinophils % 3 % Basophils % 1 % Neutrophils # 5.4 (1.3-7.7) k/uL Lymphocytes # 1.9 (1.0-4.8) k/uL Monocytes # 0.5 (0-1.0) k/uL Eosinophils # 0.2 (0-0.7) k/uL Basophils # 0.1 (0-0.2) k/uL Hypochromasia Slight PT (9.0-12.0) sec INR (<1.2) APTT (22.0-30.0) sec Sodium 140 (137-145) mmol/L Potassium 4.4 (3.5-5.1) mmol/L Chloride 106 (98-107) mmol/L Carbon Dioxide 29 (22-30) mmol/L Anion Gap 5 mmol/L BUN 40 H (9-20) mg/dL Creatinine 2.73 H (0.66-1.25) mg/dL Est GFR (CKD-EPI)AfAm 25 (>60 ml/min/1.73 sqM) Est GFR (CKD-EPI)NonAf 22 (>60 ml/min/1.73 sqM) Glucose 79 (74-99) mg/dL Calcium 8.8 (8.4-10.2) mg/dL Total Bilirubin 0.3 (0.2-1.3) mg/dL AST 16 L (17-59) U/L ALT 14 L (21-72) U/L Alkaline Phosphatase 81 (38-126) U/L Total Protein 7.1 (6.3-8.2) g/dL Albumin 3.5 (3.5-5.0) g/dL Urine Color Light Red Urine Appearance Cloudy (Clear) Urine pH 5.5 (5.0-8.0) Ur Specific [place] 1.010 (1.001-1.035) Urine Protein 1+ H (Negative) Urine Glucose (UA) Negative (Negative) Urine Ketones Negative (Negative) Urine Blood Large H (Negative) Urine Nitrite Negative (Negative) Urine Bilirubin Negative (Negative) Urine Urobilinogen <2.0 (<2.0) mg/dL Ur Leukocyte Esterase Large H (Negative) Urine RBC >182 H (0-5) /hpf Urine WBC 25 H (0-5) /hpf 05/31/18 Range/Units 18:41 WBC (3.8-10.6) k/uL RBC (4.30-5.90) m/uL Hgb (13.0-17.5) gm/dL Hct (39.0-53.0) % MCV (80.0-100.0) fL MCH (25.0-35.0) pg MCHC (31.0-37.0) g/dL RDW (11.5-15.5) % Plt Count (150-450) k/uL Neutrophils % % Lymphocytes % % Monocytes % % Eosinophils % % Basophils % % Neutrophils # (1.3-7.7) k/uL Lymphocytes # (1.0-4.8) k/uL Monocytes # (0-1.0) k/uL Eosinophils # (0-0.7) k/uL Basophils # (0-0.2) k/uL Hypochromasia PT 9.5 (9.0-12.0) sec INR 0.9 (<1.2) APTT 25.0 (22.0-30.0) sec Sodium (137-145) mmol/L Potassium (3.5-5.1) mmol/L Chloride (98-107) mmol/L Carbon Dioxide (22-30) mmol/L Anion Gap mmol/L BUN (9-20) mg/dL Creatinine (0.66-1.25) mg/dL Est GFR (CKD-EPI)AfAm (>60 ml/min/1.73 sqM) Est GFR (CKD-EPI)NonAf (>60 ml/min/1.73 sqM) Glucose (74-99) mg/dL Calcium (8.4-10.2) mg/dL Total Bilirubin (0.2-1.3) mg/dL AST (17-59) U/L ALT (21-72) U/L Alkaline Phosphatase (38-126) U/L Total Protein (6.3-8.2) g/dL Albumin (3.5-5.0) g/dL Urine Color Urine Appearance (Clear) Urine pH (5.0-8.0) Ur Specific [place] (1.001-1.035) Urine Protein (Negative) Urine Glucose (UA) (Negative) Urine Ketones (Negative) Urine Blood (Negative) Urine Nitrite (Negative) Urine Bilirubin (Negative) Urine Urobilinogen (<2.0) mg/dL Ur Leukocyte Esterase (Negative) Urine RBC (0-5) /hpf Urine WBC (0-5) /hpf Disposition Clinical Impression: Urinary retention, Hematuria Disposition: HOME SELF-CARE Condition: Fair Instructions: Hematuria (ED), Urinary Retention in Men (ED) Is patient prescribed a controlled substance at d/c from ED?: No Referrals: Samuel Venegas MD [Primary Care Provider] - 1-2 days Vinnie Hollins MD [STAFF PHYSICIAN] - 1-2 days Time of Disposition: 19:23
[2018-05-31 18:26] LABS: Appearance,Urine Cloudy (Clear); Bilirubin,Urine Negative (Negative); Blood,Urine Large (Negative); Color,Urine Light Red; Glucose,Urine (UA) Negative (Negative); Ketones,Urine Negative (Negative); Leukocyte Esterase,Urine Large (Negative); Nitrite,Urine Negative (Negative); PH, Urine 5.5 (5.0-8.0); Protein,Urine 1+ (Negative); RBC,Urine >182 /hpf (0-5); Urobilinogen,Urine <2.0 mg/dL (<2.0); WBC,Urine 25 /hpf (0-5)
[2018-05-31 18:54] LABS: Basophils # (A) 0.1 k/uL (0-0.2); Basophils % (A) 1 %; Eosinophils # (A) 0.2 k/uL (0-0.7); Eosinophils % (A) 3 %; HCT 29.5 % (39.0-53.0); HGB 9.8 gm/dL (13.0-17.5); Hypochromasia Slight; Lymphocytes # (A) 1.9 k/uL (1.0-4.8); Lymphocytes % (A) 23 %; MCH 30.5 pg (25.0-35.0); MCHC 33.1 g/dL (31.0-37.0); MCV 92.1 fL (80.0-100.0); Mean Platelet Volume 6.9; Monocytes # (A) 0.5 k/uL (0-1.0); Monocytes % (A) 7 %; Neutrophils # (A) 5.4 k/uL (1.3-7.7); Neutrophils % (A) 66 %; Platelet Count 229 k/uL (150-450); RBC 3.21 m/uL (4.30-5.90); RDW 15.1 % (11.5-15.5); WBC 8.2 k/uL (3.8-10.6)
[2018-05-31 19:03] LABS: Albumin 3.5 g/dL (3.5-5.0); Calcium 8.8 mg/dL (8.4-10.2); INR 0.9 (<1.2); Potassium 4.4 mmol/L (3.5-5.1); Prothrombin Time 9.5 sec (9.0-12.0); Total Bilirubin 0.3 mg/dL (0.2-1.3); Total Protein 7.1 g/dL (6.3-8.2)
[2018-05-31 19:45] VITALS: BP 115/62; PULSE 64; RESP 20; TEMP 97.5
== END 2018-05-31 19:51 | disposition home or self-care (01) ==
LOC: EC 13:52
DX: R31.9 Hematuria, unspecified (principal); R33.9 Retention of urine, unspecified; J45.909 Unspecified asthma, uncomplicated; I25.10 Atherosclerotic heart disease of native coronary artery without angina pectoris; E11.9 Type 2 diabetes mellitus without complications; I10 Essential (primary) hypertension; Z79.4 Long term (current) use of insulin; Z79.890 Hormone replacement therapy; Z79.899 Other long term (current) drug therapy; Z88.8 Allergy status to other drugs, medicaments and biological substances; Z95.0 Presence of cardiac pacemaker; Z95.1 Presence of aortocoronary bypass graft; Z87.891 Personal history of nicotine dependence
CPT/HCPCS: 36415; 51702; 80053; 81001; 85025; 85610; 85730; 87086; 99284

== ENCOUNTER 2018-06-11 23:48 | Inpatient (IN) | payer MEDICARE ==
--- NOTE | 2018-06-12 01:22 | XR ---
EXAMINATION TYPE: XR chest 2V DATE OF EXAM: 06/12/2018 COMPARISON: 05/02/2018 HISTORY: Fever and weakness TECHNIQUE: Frontal and lateral views of the chest are obtained. FINDINGS: There is coarsening of the lung markings. Heart is top normal in size. There is a left axi llary pacemaker with the lead tips in the right ventricle. There is some linear density in the right lower lobe. IMPRESSION: Coarse markings with some mild subsegmental atelectasis right lower lobe. No overt heart failure. Atelectasis is new compared to last exam.
[2018-06-12 01:31] LABS: Appearance,Urine Cloudy (Clear); Bilirubin,Urine Negative (Negative); Blood,Urine Small (Negative); Budding Yeast,Urine Few /hpf; Color,Urine Light Yellow; Glucose,Urine (UA) Negative (Negative); Hyaline Casts,Urine 4 /lpf (0-2); Ketones,Urine Negative (Negative); Leukocyte Esterase,Urine Large (Negative); Mucus,Urine Rare /hpf; Nitrite,Urine Negative (Negative); Protein,Urine 1+ (Negative); RBC,Urine 22 /hpf (0-5); Urobilinogen,Urine <2.0 mg/dL (<2.0); WBC,Urine 143 /hpf (0-5)
[2018-06-12] MEDS ORDERED: NAFCILLIN 2 GM in DEXTROSE 5% IN WATER 50 ML IVPB STA ×2 (01:50)
--- NOTE | 2018-06-12 01:57 | ED ---
General Adult HPI - General Chief complaint: Recheck/Abnormal Lab/Rx Stated complaint: Tremors Time Seen by Provider: 06/12/18 00:29 Source: patient, EMS Mode of arrival: EMS Limitations: physical limitation - History of Present Illness Initial comments: This patient is a 77-year-old man who presents here to be evaluated for what sounds like a shaking chill or right or that developed tonight. The patient states that it was approximately couple of hours ago. He had been sitting and watching television. He noticed that he was feeling cold and shaking. He had not noticed a fever. The patient had not noticed any symptoms of infection. He states that earlier in the day he had had a procedure at the urologist office. It sounds like he underwent a cystoscopy, as he was explaining that they found a stone in his bladder. Patient had been feeling relatively well after that and then tonight had the right or at home. On the review of systems , he is denying other symptoms of infection. No known fever. No sinus congestion, sore throat, cough, chest pain or dyspnea. No nausea or vomiting, abdominal pain. No rash. He states he had not noticed any change in the urine coming out of the Mcgovern catheter that was placed after the procedure. -: hour(s) Consistency: now resolved Improves with: none Worsens with: none Associated Symptoms: fever/chills Treatments Prior to Arrival: none - Related Data Home Medications Medication Instructions Recorded Confirmed Atenolol [Tenormin] 25 mg PO DAILY 08/04/14 06/12/18 Furosemide [Lasix] 40 mg PO BID 08/04/14 06/12/18 Insulin NPH Human Isophane 20 unit SQ AC-BRKFST 08/04/14 06/12/18 [NovoLIN N] Insulin Regular, Human [NovoLIN R] See Protocol SQ AC-TID 08/04/14 06/12/18 Levothyroxine Sodium [Synthroid] 100 mcg PO DAILY 08/04/14 06/12/18 Ranitidine HCl 150 mg PO DAILY 08/04/14 06/12/18 glipiZIDE [Glucotrol XL] 5 mg PO DAILY 08/04/14 06/12/18 Albuterol Inhaler [Ventolin Hfa 1 - 2 puff INHALATION RT-Q4H PRN 11/05/16 Inhaler] Albuterol Nebulized [Ventolin 2.5 mg INHALATION RT-QID 11/05/16 06/12/18 Nebulized] Insulin NPH Human Isophane 12 unit SQ AC-SUPPER 11/05/16 06/12/18 [Humulin N] Ipratropium Nebulized [Atrovent 0.05 mg INHALATION RT-QID 11/05/16 06/12/18 Nebulized 0.2 MG/ML] Verapamil HCl [Verapamil ER] 240 mg PO DAILY 11/05/16 06/12/18 Vit C/E/Zn/Coppr/Lutein/Zeaxan 1 cap PO BID 04/22/18 06/12/18 [Preservision Areds 2 Softgel] Lisinopril [Prinivil] 10 mg PO DAILY 06/12/18 06/12/18 Potassium Chloride ER [K-Dur 20] 20 meq PO DAILY 06/12/18 06/12/18 Previous Rx's Medication Instructions Recorded Hydrocortisone Suppository 25 mg RC BID #10 supp 04/23/18 [Anusol-Hc] Polyethylene Glycol 3350 [Miralax] 17 gm PO DAILY #7 packet 04/23/18 Tamsulosin HCl [Flomax] 0.4 mg PO AC-SUPPER #30 capsule 04/23/18 Ammonium Lactate Cream [Lac-Hydrin 1 applic TOPICAL BID cream 05/07/18 12% Cream] Hbebuvqz-Hzmtamfmkv-Fhhr Oint 1 applic TOPICAL DAILY applic 05/07/18 [Triple Antibiotic Ointment] Sodium Bicarbonate Tab 650 mg PO TID tab 05/07/18 Allergies Allergy/AdvReac Type Severity Reaction Status Date / Time esmolol [From Brevibloc] Allergy Unknown Verified 06/12/18 09:21 Review of Systems ROS Statement: Those systems with pertinent positive or pertinent negative responses have been documented in the HPI. ROS Other: All systems not noted in ROS Statement are negative. Constitutional: Reports: as per HPI, chills. Denies: fever, weakness Eyes: Denies: eye discharge, vision change ENT: Denies: ear pain, throat pain, congestion Respiratory: Denies: cough, dyspnea Cardiovascular: Denies: chest pain, palpitations, edema, syncope Gastrointestinal: Denies: abdominal pain, nausea, vomiting, diarrhea Genitourinary: Reports: as per HPI, other (Indwelling catheter). Denies: hematuria, testicular pain Musculoskeletal: Denies: back pain Skin: Denies: rash Neurological: Denies: headache, weakness Past Medical History Past Medical History: Asthma, Coronary Artery Disease (CAD), Cancer, Diabetes Mellitus, Hyperlipidemia, Hypertension, Prostate Disorder, Thyroid Disorder Additional Past Medical History / Comment(s): lymphoma, chemotherapy, radiation, - 06/2011 colitis History of Any Multi-Drug Resistant Organisms: None Reported Past Surgical History: Coronary Bypass/CABG, Orthopedic Surgery, Pacemaker Additional Past Surgical History / Comment(s): Lt ankle - plate. sinus surgery s/t cancer Past Anesthesia/Blood Transfusion Reactions: No Reported Reaction Date of Last Stent Placement:: 2001 Type of Cardiac Device: Permanent Pacemaker Device Placement Date:: 2001 Past Psychological History: No Psychological Hx Reported Smoking Status: Former smoker Past Alcohol Use History: None Reported Past Drug Use History: None Reported - Past Family History Brother(s) Additional Family Medical History / Comment(s): Patient has 3 brothers and one has history of coronary artery disease. Sister(s) Additional Family Medical History / Comment(s): Patient has one sister with history of SVT and AVR. Son(s) Additional Family Medical History / Comment(s): Patient has 2 sons and one has history of kidney stones. Patient does not have any daughters. Patient has a grandson treated for SVT. Father Family Medical History: No Reported History Additional Family Medical History / Comment(s): Father at age 72 with history of coronary artery disease and CABG Mother Family Medical History: No Reported History Additional Family Medical History / Comment(s): Mother at age 93 with history of coronary artery disease. General Exam Limitations: physical limitation General appearance: alert, in no apparent distress Head exam: Present: atraumatic, normocephalic Eye exam: Present: normal appearance. Absent: scleral icterus, conjunctival injection ENT exam: Present: mucous membranes dry Neck exam: Present: normal inspection, full ROM. Absent: tenderness, meningismus Respiratory exam: Present: normal lung sounds bilaterally. Absent: respiratory distress, wheezes, rales, rhonchi, stridor Cardiovascular Exam: Present: regular rate, normal rhythm, normal heart sounds. Absent: systolic murmur, diastolic murmur, rubs, gallop GI/Abdominal exam: Present: soft. Absent: distended, tenderness, guarding, rebound Extremities exam: Present: normal inspection, normal capillary refill, other ( Patient has chronic venous stasis changes to the bilateral lower extremities and there also is some erythema and warmth consistent with cellulitis circumferentially from the ankles to just distal to the knees.) Back exam: Present: normal inspection. Absent: CVA tenderness (R), CVA tenderness (L) Neurological exam: Present: alert Skin exam: Present: warm, dry, intact, erythema (See above the extremities exam. ). Absent: rash Course Vital Signs 06/11/18 06/12/18 06/12/18 23:58 01:45 04:02 Temperature 99.9 F H 100.5 F H Pulse Rate 80 Respiratory 19 22 Rate Blood Pressure 147/68 O2 Sat by Pulse 94 L Oximetry 06/12/18 04:37 Temperature Pulse Rate 80 Respiratory 16 Rate Blood Pressure O2 Sat by Pulse Oximetry Medical Decision Making - Medical Decision Making The patient is a 77-year-old man presenting to be evaluated after rigor. On the exam he does have some cellulitis of the bilateral lower extremities. Case discussed with admitting doctor and patient will be admitted for IV antibiotic therapy. Just prior to going to the floor his urine returned and is positive for UTI. - Lab Data Result diagrams: 06/12/18 01:58 06/12/18 01:58 Lab Results 06/12/18 06/12/18 Range/Units 01:01 01:01 Urine Color Light Yellow Urine Appearance Cloudy (Clear) Urine pH 7.0 (5.0-8.0) Ur Specific Ada 1.010 (1.001-1.035) Urine Protein 1+ H (Negative) Urine Glucose (UA) Negative (Negative) Urine Ketones Negative (Negative) Urine Blood Small H (Negative) Urine Nitrite Negative (Negative) Urine Bilirubin Negative (Negative) Urine Urobilinogen <2.0 (<2.0) mg/dL Ur Leukocyte Esterase Large H (Negative) Urine RBC 22 H (0-5) /hpf Urine WBC 143 H (0-5) /hpf Urine WBC Clumps Few H (None) /hpf Hyaline Casts 4 H (0-2) /lpf Urine Mucus Rare H (None) /hpf Urine Yeast (Budding) Few H (None) /hpf Influenza Type A RNA Not Detected (Not Detectd) Influenza Type B (PCR) Not Detected (Not Detectd) Disposition Clinical Impression: Cellulitis, Urinary tract infection Disposition: ADMITTED IP TO THIS HOSP Condition: Fair
[2018-06-12] MEDS ORDERED: NALOXONE 0.4 MG/ML 1 ML VIAL IV PRN (01:58)
[2018-06-12 02:16] LABS: Basophils % (A) 0 %; Eosinophils # (A) 0.3 k/uL (0-0.7); Eosinophils % (A) 2 %; HCT 30.1 % (39.0-53.0); HGB 9.2 gm/dL (13.0-17.5); Lymphocytes % (A) 7 %; MCH 28.9 pg (25.0-35.0); MCHC 30.6 g/dL (31.0-37.0); MCV 94.3 fL (80.0-100.0); Mean Platelet Volume 7.4; Monocytes # (A) 0.3 k/uL (0-1.0); Monocytes % (A) 2 %; Neutrophils # (A) 13.3 k/uL (1.3-7.7); Neutrophils % (A) 88 %; Platelet Count 172 k/uL (150-450); RBC 3.19 m/uL (4.30-5.90); RDW 15.5 % (11.5-15.5); WBC 15.1 k/uL (3.8-10.6)
[2018-06-12 02:23] LABS: Albumin 3.7 g/dL (3.5-5.0); Calcium 8.5 mg/dL (8.4-10.2); Potassium 4.2 mmol/L (3.5-5.1); Total Bilirubin 0.4 mg/dL (0.2-1.3); Total Protein 7.3 g/dL (6.3-8.2)
[2018-06-12] MEDS ORDERED: ONDANSETRON 4 MG/2 ML VIAL IVP STA (03:21)
[2018-06-12] MEDS ORDERED: LEVOFLOXACIN 750MG-D5W PMX 750 MG in DEXTROSE/WATER 1 150ML.BAG IVPB STA (03:21)
[2018-06-12] MEDS: SODIUM CHLORIDE 0.9% 1,000 ML IV SCH (03:47)
[2018-06-12] MEDS ORDERED: ALBUTEROL NEBULIZED 2.5 MG/3 ML INHALATION STA (04:35)
[2018-06-12] MEDS ORDERED: ACETAMINOPHEN TAB 325 MG TAB PO PRN (04:37)
[2018-06-12] MEDS ORDERED: IPRATROPIUM-ALBUTEROL 3 ML NEB INHALATION PRN (04:42)
[2018-06-12 05:22] VITALS: BMI 31.4
[2018-06-12] MEDS: LEVOTHYROXINE 100 MCG TAB PO SCH (05:32)
[2018-06-12] MEDS ORDERED: ALBUTEROL NEBULIZED 2.5 MG/3 ML INHALATION SCH (08:00)
[2018-06-12] MEDS ORDERED: IPRATROPIUM 0.5 MG/2.5 ML NEBU INHALATION SCH (08:00)
[2018-06-12] MEDS: IPRATROPIUM-ALBUTEROL 3 ML NEB INHALATION SCH ×4 (08:39→19:23)
[2018-06-12 08:41] LABS: Glucose,Whole Blood 270 mg/dL (75-99)
[2018-06-12] MEDS: ATENOLOL 25 MG TAB PO SCH (08:49)
[2018-06-12] MEDS: INSULIN NPH 300 UNIT/3 ML VIAL SQ SCH ×2 (08:49→17:50)
[2018-06-12] MEDS: FAMOTIDINE 20 MG TAB PO SCH (08:49)
[2018-06-12] MEDS: FUROSEMIDE 40 MG TAB PO SCH ×2 (08:49→21:46)
[2018-06-12] MEDS: SODIUM BICARBONATE TAB 650 MG TAB PO SCH ×3 (08:49→21:47)
[2018-06-12] MEDS: VERAPAMIL SR 240 MG TABLET.ER PO SCH (08:49)
[2018-06-12] MEDS: INSULIN ASPART 100 UNIT/ML 1 ML 10 ML VIAL SQ SCH ×4 (08:49→21:46)
[2018-06-12] MEDS: POLYETHYLENE GLYCOL 3350 17 GM POWD.PACK PO SCH (08:50)
[2018-06-12] MEDS: HEPARIN SODIUM,PORCINE 5,000 UNIT/ML 1 ML VIAL SQ SCH ×2 (08:50→21:46)
[2018-06-12] MEDS: HYDROCORTISONE SUPPOSITORY 25 MG SUPP RECTAL SCH ×2 (08:50→21:46)
[2018-06-12] MEDS: AMMONIUM LACTATE 12% CREAM 140 GM TUBE TOPICAL SCH ×2 (08:50→21:47)
[2018-06-12 12:16] LABS: Glucose,Whole Blood 217 mg/dL (75-99)
--- NOTE | 2018-06-12 12:23 | P.HPIM ---
History of Present Illness H&P Date: 06/12/18 Chief Complaint: Cellulitis This is a 77-year-old pleasant gentleman who is a patient of Dr. Tay Rice. With past medical history significant for asthma, COPD, diabetes, hypertension, hypothyroidism, history of lymphoma status post chemotherapy and radiation, history of colitis, history of coronary artery disease status post CABG 2013, history of sick sinus syndrome status post pacemaker in 2001. Patient presented to the hospital today due to chills and rigors. Patient was seen yesterday afternoon at Dr. Márquez's office for a cystoscopy. Patient has history of urinary retention. During the procedure was noted that patient did have a stone in his bladder. Patient was sent home with a indwelling catheter. In the evening he started to shake uncontrollably and presented to the emergency room. Patient is also noted to have bilateral lower extremity edema and redness. Patient has multiple ulcerations all closed on bilateral lower extremities. Patient states that he often has episodes of cellulitis and it seems that his legs are starting to flare up. Patient denies any pain, shortness of breath, fever or chills at this time. Review of Systems Constitutional: Reports chills, Reports fatigue, Denies fever Eyes: denies blurred vision, denies pain Ears, nose, mouth and throat: Denies headache, Denies nasal congestion, Denies nasal discharge, Denies sore throat Cardiovascular: Denies chest pain, Denies edema, Denies lightheadedness, Denies shortness of breath Respiratory: Denies cough Gastrointestinal: Denies abdominal pain, Denies diarrhea, Denies nausea, Denies vomiting Genitourinary: Denies discharge, Denies hematuria (Indwelling catheter in place) Musculoskeletal: Denies leg numbness/tingling, Denies myalgias Integumentary: Reports lesions (Redness, swelling, closed lesions), Denies pruritus, Denies rash Neurological: Denies numbness, Denies vertigo, Denies weakness Psychiatric: Denies anxiety, Denies depression Endocrine: Denies fatigue, Denies weight change Past Medical History Past Medical History: Asthma, Coronary Artery Disease (CAD), Cancer, Diabetes Mellitus, Hyperlipidemia, Hypertension, Prostate Disorder, Thyroid Disorder Additional Past Medical History / Comment(s): lymphoma, chemotherapy, radiation, - 06/2011 colitis History of Any Multi-Drug Resistant Organisms: None Reported Past Surgical History: Coronary Bypass/CABG, Orthopedic Surgery, Pacemaker Additional Past Surgical History / Comment(s): Lt ankle - plate. sinus surgery s/t cancer Past Anesthesia/Blood Transfusion Reactions: No Reported Reaction Date of Last Stent Placement:: 2001 Type of Cardiac Device: Permanent Pacemaker Device Placement Date:: 2001 Past Psychological History: No Psychological Hx Reported Smoking Status: Former smoker Past Alcohol Use History: None Reported Past Drug Use History: None Reported - Past Family History Brother(s) Additional Family Medical History / Comment(s): Patient has 3 brothers and one has history of coronary artery disease. Sister(s) Additional Family Medical History / Comment(s): Patient has one sister with history of SVT and AVR. Son(s) Additional Family Medical History / Comment(s): Patient has 2 sons and one has history of kidney stones. Patient does not have any daughters. Patient has a grandson treated for SVT. Father Family Medical History: No Reported History Additional Family Medical History / Comment(s): Father at age 72 with history of coronary artery disease and CABG Mother Family Medical History: No Reported History Additional Family Medical History / Comment(s): Mother at age 93 with history of coronary artery disease. Medications and Allergies Home Medications Medication Instructions Recorded Confirmed Type Atenolol [Tenormin] 25 mg PO DAILY 08/04/14 06/12/18 History Furosemide [Lasix] 40 mg PO BID 08/04/14 06/12/18 History Insulin NPH Human Isophane 20 unit SQ AC-BRKFST 08/04/14 06/12/18 History [NovoLIN N] Insulin Regular, Human [NovoLIN R] See Protocol SQ AC-TID 08/04/14 06/12/18 History Levothyroxine Sodium [Synthroid] 100 mcg PO DAILY 08/04/14 06/12/18 History Ranitidine HCl 150 mg PO DAILY 08/04/14 06/12/18 History glipiZIDE [Glucotrol XL] 5 mg PO DAILY 08/04/14 06/12/18 History Albuterol Inhaler [Ventolin Hfa 1 - 2 puff INHALATION RT-Q4H PRN 11/05/16 History Inhaler] Albuterol Nebulized [Ventolin 2.5 mg INHALATION RT-QID 11/05/16 06/12/18 History Nebulized] Insulin NPH Human Isophane 12 unit SQ AC-SUPPER 11/05/16 06/12/18 History [Humulin N] Ipratropium Nebulized [Atrovent 0.05 mg INHALATION RT-QID 11/05/16 06/12/18 History Nebulized 0.2 MG/ML] Verapamil HCl [Verapamil ER] 240 mg PO DAILY 11/05/16 06/12/18 History Vit C/E/Zn/Coppr/Lutein/Zeaxan 1 cap PO BID 04/22/18 06/12/18 History [Preservision Areds 2 Softgel] Hydrocortisone Suppository 25 mg RC BID #10 supp 04/23/18 06/12/18 Rx [Anusol-Hc] Polyethylene Glycol 3350 [Miralax] 17 gm PO DAILY #7 packet 04/23/18 06/12/18 Rx Tamsulosin HCl [Flomax] 0.4 mg PO AC-SUPPER #30 capsule 04/23/18 06/12/18 Rx Ammonium Lactate Cream [Lac-Hydrin 1 applic TOPICAL BID cream 05/07/18 Rx 12% Cream] Mdbtjwsr-Rqdohghoqi-Qqxg Oint 1 applic TOPICAL DAILY applic 05/07/18 06/12/18 Rx [Triple Antibiotic Ointment] Sodium Bicarbonate Tab 650 mg PO TID tab 05/07/18 06/12/18 Rx Lisinopril [Prinivil] 10 mg PO DAILY 06/12/18 06/12/18 History Potassium Chloride ER [K-Dur 20] 20 meq PO DAILY 06/12/18 06/12/18 History Allergies Allergy/AdvReac Type Severity Reaction Status Date / Time esmolol [From Brevibloc] Allergy Unknown Verified 06/12/18 09:21 Physical Exam Vitals: Vital Signs Temp Pulse Pulse Resp BP BP Pulse Ox 06/12/18 09:01 98.2 F 82 18 102/57 93 L 06/12/18 08:51 88 06/12/18 08:43 80 06/12/18 05:05 18 06/12/18 05:03 79 16 143/64 94 L 06/12/18 04:50 78 16 06/12/18 04:37 80 16 06/12/18 04:02 100.5 F H 06/12/18:45 22 06/11/18 23:58 99.9 F H 80 19 147/68 94 L Intake and Output 06/11/18 06/12/18 06/12/18 22:59 06:59 14:59 Output Total 100 Balance -100 Output: Urine 100 Other: Voiding Method Indwelling Catheter Indwelling Catheter Weight 102 kg - Constitutional General appearance: cooperative, no acute distress, obese - EENT Eyes: anicteric sclerae, EOMI, PERRLA ENT: hearing grossly normal, NA/AT - Neck Neck: no lymphadenopathy, normal ROM, no rigidity - Respiratory Respiratory: bilateral: CTA, negative: diminished, dullness, rales, rhonchi, wheezing - Cardiovascular Rhythm: regular Heart sounds: normal: S1, S2 - Gastrointestinal General gastrointestinal: normal bowel sounds, no organomegaly, soft, no tenderness - Integumentary Chronic venous stasis changes to bilateral lower extremities, positive erythema and warmth circumferential from ankles to distally to knees. Integumentary: no rash - Neurologic Neurologic: CNII-XII intact - Musculoskeletal Musculoskeletal: gait normal, generalized weakness, strength equal bilaterally - Psychiatric Psychiatric: A&O x's 3, appropriate affect, intact judgment & insight Results CBC & Chem 7: 06/12/18 01:58 06/12/18 01:58 Labs: Abnormal Lab Results - Last 24 Hours (Table) 06/12/18 06/12/18 06/12/18 Range/Units 01:01 01:58 01:58 WBC 15.1 H (3.8-10.6) k/uL RBC 3.19 L (4.30-5.90) m/uL Hgb 9.2 L (13.0-17.5) gm/dL Hct 30.1 L (39.0-53.0) % MCHC 30.6 L (31.0-37.0) g/dL Neutrophils # 13.3 H (1.3-7.7) k/uL BUN 42 H (9-20) mg/dL Creatinine 2.10 H (0.66-1.25) mg/dL Glucose 202 H (74-99) mg/dL POC Glucose (mg/dL) (75-99) mg/dL Urine Protein 1+ H (Negative) Urine Blood Small H (Negative) Ur Leukocyte Esterase Large H (Negative) Urine RBC 22 H (0-5) /hpf Urine WBC 143 H (0-5) /hpf Urine WBC Clumps Few H (None) /hpf Hyaline Casts 4 H (0-2) /lpf Urine Mucus Rare H (None) /hpf Urine Yeast (Budding) Few H (None) /hpf 06/12/18 Range/Units 08:30 WBC (3.8-10.6) k/uL RBC (4.30-5.90) m/uL Hgb (13.0-17.5) gm/dL Hct (39.0-53.0) % MCHC (31.0-37.0) g/dL Neutrophils # (1.3-7.7) k/uL BUN (9-20) mg/dL Creatinine (0.66-1.25) mg/dL Glucose (74-99) mg/dL POC Glucose (mg/dL) 270 H (75-99) mg/dL Urine Protein (Negative) Urine Blood (Negative) Ur Leukocyte Esterase (Negative) Urine RBC (0-5) /hpf Urine WBC (0-5) /hpf Urine WBC Clumps (None) /hpf Hyaline Casts (0-2) /lpf Urine Mucus (None) /hpf Urine Yeast (Budding) (None) /hpf Microbiology - Last 24 Hours (Table) 06/12/18 01:01 Urine Culture - Preliminary Urine,Catheterized Thrombosis Risk Factor Assmnt - Choose All That Apply Any of the Below Risk Factors Present?: Yes Each Factor Represents 1 point: Acute UT, Obesity (BMI >25), Swollen legs ( current) Each Risk Factor Represents 3 Points: Age 75 years or older Other congenital or acquired thrombophilia - If yes, enter type in comment: No Thrombosis Risk Factor Assessment Total Risk Factor Score: 6 Thrombosis Risk Factor Assessment Level: High Risk Assessment and Plan Plan: 1. Cellulitis secondary to chronic venous stasis. Continue levofloxacin 750 mg IV piggyback daily. Obtain blood culture. Consult infectious disease. 2. Urinary tract infection secondary to urinary procedure. Continue levofloxacin 750 mg grams IV piggyback daily. Obtain urine culture. Consult urology 3. BPH. Flomax 0.4 mg daily 3. Hypertension. Continue Tenormin 25 mg daily, continue Lasix 40 mg by mouth twice a day, verapamil 240 mg by mouth daily 4. Diabetes mellitus. Continue glipizide 2.5 mg by mouth twice a day, continue Humulin 20 units subcu before meals breakfast, 12 units subcu before meals supper. Continue insulin sliding scale. Monitor glucose before meals and at bedtime. 5. COPD. Continue DuoNeb as needed 6. Hypothyroid. Levothyroxine 100 g by mouth daily 7. Constipation MiraLAX 17 g by mouth daily 8. GI prophylaxis. Pepcid 20 mg by mouth 9. DVT prophylaxis. Heparin 5000 units subcu every 12h. Discharge plan: Discharge home possibly 2 days Impression and plan of care have been directed as dictated by the signing physician. Emily Ricardo nurse practitioner acting as scribe for signing physician.
[2018-06-12] MEDS: PIPERACILLIN-TAZOBACTAM 3.375 GM in SODIUM CHLORIDE 0.9% 100 ML IVPB SCH (15:51)
[2018-06-12 17:28] LABS: Glucose,Whole Blood 243 mg/dL (75-99)
[2018-06-12] MEDS: TAMSULOSIN 0.4 MG CAP.ER.24H PO SCH (17:46)
[2018-06-12 20:51] LABS: Glucose,Whole Blood 349 mg/dL (75-99)
[2018-06-13] MEDS: PIPERACILLIN-TAZOBACTAM 3.375 GM in SODIUM CHLORIDE 0.9% 100 ML IVPB SCH ×4 (00:41→23:09)
[2018-06-13] MEDS: SODIUM CHLORIDE 0.9% 1,000 ML IV SCH (02:52)
[2018-06-13] MEDS: LEVOTHYROXINE 100 MCG TAB PO SCH (06:52)
[2018-06-13 07:08] LABS: Glucose,Whole Blood 91 mg/dL (75-99)
[2018-06-13] MEDS: IPRATROPIUM-ALBUTEROL 3 ML NEB INHALATION SCH ×4 (07:10→19:06)
[2018-06-13 08:07] LABS: Basophils % (A) 0 %; Eosinophils # (A) 0.5 k/uL (0-0.7); Eosinophils % (A) 4 %; HCT 26.4 % (39.0-53.0); HGB 8.3 gm/dL (13.0-17.5); Hypochromasia Moderate; Lymphocytes # (A) 1.8 k/uL (1.0-4.8); Lymphocytes % (A) 13 %; MCH 29.8 pg (25.0-35.0); MCHC 31.3 g/dL (31.0-37.0); MCV 95.2 fL (80.0-100.0); Mean Platelet Volume 6.8; Monocytes # (A) 0.5 k/uL (0-1.0); Monocytes % (A) 4 %; Neutrophils # (A) 10.7 k/uL (1.3-7.7); Neutrophils % (A) 78 %; Platelet Count 146 k/uL (150-450); RBC 2.77 m/uL (4.30-5.90); RDW 15.4 % (11.5-15.5); WBC 13.7 k/uL (3.8-10.6)
[2018-06-13 08:20] LABS: Potassium 3.5 mmol/L (3.5-5.1)
[2018-06-13] MEDS: INSULIN ASPART 100 UNIT/ML 1 ML 10 ML VIAL SQ SCH ×4 (08:30→21:53)
[2018-06-13] MEDS: HYDROCORTISONE SUPPOSITORY 25 MG SUPP RECTAL SCH ×2 (08:34→22:04)
[2018-06-13] MEDS: POLYETHYLENE GLYCOL 3350 17 GM POWD.PACK PO SCH (08:34)
[2018-06-13] MEDS: SODIUM BICARBONATE TAB 650 MG TAB PO SCH ×3 (08:37→21:54)
[2018-06-13] MEDS: AMMONIUM LACTATE 12% CREAM 140 GM TUBE TOPICAL SCH ×2 (08:37→21:53)
[2018-06-13] MEDS: ATENOLOL 25 MG TAB PO SCH (08:37)
[2018-06-13] MEDS: INSULIN NPH 300 UNIT/3 ML VIAL SQ SCH ×2 (08:37→17:20)
[2018-06-13] MEDS: FUROSEMIDE 40 MG TAB PO SCH ×2 (08:37→21:53)
[2018-06-13] MEDS: VERAPAMIL SR 240 MG TABLET.ER PO SCH (08:37)
[2018-06-13] MEDS: FAMOTIDINE 20 MG TAB PO SCH (08:37)
[2018-06-13] MEDS: HEPARIN SODIUM,PORCINE 5,000 UNIT/ML 1 ML VIAL SQ SCH ×2 (08:37→21:53)
--- NOTE | 2018-06-13 09:25 | CONS ---
CONSULTATION DATE OF SERVICE: 06/12/2018. REASON FOR CONSULTATION: Gram-negative bacteremia. HISTORY OF PRESENT ILLNESS: The patient is a 77-year-old male who recently has been evaluated by Urology in the outpatient setting. The patient did have a cystoscopy for urinary retention, was noticed to have a stone in his bladder. Subsequently patient was sent home with indwelling catheter. In the evening, the same evening, the patient started having uncontrollable shaking, chills with rigors. Did not take a temperature with these symptoms, however, the patient did present to hospital. The patient denies having any abdominal pain. No nausea, vomiting, or any diarrhea. Denies having any chest pain. No shortness of breath or cough. The patient was recently admitted to this facility with bilateral lower extremity cellulitis with streptococcal bacteremia. He did have some swelling in the leg, but no significant redness or any open wound. On arrival the patient noticed to have a fever of 99.9-100.5 degrees Fahrenheit. The patient did not have any hemodynamic instability or tachycardia, though his white count was elevated to 15.1 and creatinine 2.10. Patient did have a UA which shows large leukocyte esterase, 143 WBC. The influenza serology was negative. Blood cultures coming back positive with gram-negative bacilli that prompted this Infectious Disease consultation. REVIEW OF SYSTEMS: Positive points have been mentioned in HPI. Rest of the 14 systems has been negative. PAST MEDICAL HISTORY: Bilateral lower extremity cellulitis, bacteremia, hypertension, hyperlipidemia, benign prostatic hypertrophy, hypothyroidism, diabetes mellitus, coronary artery disease, asthma, lymphoma. PAST SURGICAL HISTORY: Coronary artery bypass grafting, pacemaker placement, left ankle plate placement, sinus surgery. SOCIAL HISTORY: Remote history of smoking. No drinking or drug use. FAMILY HISTORY: Father of coronary artery disease. Mother at age of 93 and did have history of coronary artery disease. ALLERGIES: MEDICATION: Medications include the patient currently on Tylenol, DuoNeb, Tenormin, Pepcid, Lasix, Glucotrol, heparin, NovoLog, Humulin N, Synthroid, Narcan, Zosyn 3.375 g q.8 hours, Verapamil, Flomax. EXAMINATION: Blood pressure is 100/53 with a pulse of 95. Temperature 98.2, T-max 100.5. He is 95% on room air. General description is an elderly male lying in bed in no distress. No tachypnea or accessory muscles of respiration use. HEENT: Shows pallor. No scleral icterus. Oral mucosal membranes are dry. No pharyngeal erythema or thrush. Neck: Trachea central. No thyromegaly. Lungs unlabored breathing. Clear to auscultation anteriorly. No wheeze or crackles. Heart S1, S2. Regular rate and rhythm. ABDOMEN: Soft, no tenderness. No guarding or rigidity. EXTREMITIES: With feet. Some minimal redness, warm to touch. No open wound drainage. NEUROLOGICAL: Patient is awake, alert, oriented times three. Mood and affect normal. LABS: Hemoglobin 9.2, white count 15.1. UA has been positive. BUN of 42, creatinine 2.10, influenza serology was negative. Blood culture with gram-negative bacilli. DIAGNOSTIC IMPRESSION AND PLAN: 1. Patient with admission to the hospital with sepsis in this patient who did have a fever of 100.9, did have elevated white count significantly positive UA now with evidence of gram-negative bacteremia. Source is likely gram-negative urinary tract infection with secondary sepsis complicated as the patient recently did have a cystoscopy done in the urology office, status post Mcgovern catheter placement. We will need to cover for the resistant gram negative to which is likely pathogen. 2. Patient with some bilateral lower extremity swelling but no definite cellulitis. Clinically doubt that is the source of his infection. PLAN: 1. Zosyn 3.375 g q.8 hours to continue. 2. IV fluids. 3. We will advise the Andrew wrap from just above the toe to below the knee to keep some of the swelling down. 4. Depending on the final ID and sensitivity of this gram-negative, will determine discharge antibiotic. Thank you for this consultation. We will follow this patient along with you. MMODL / IJN: [id number] /
--- NOTE | 2018-06-13 10:21 | P.GSCN ---
History of Present Illness Consult date: 06/13/18 Reason for Consult: Urinary tract infection History of present illness: The patient is a 77-year-old male admitted through the emergency room early on for evaluation of chills and shaking. In the emergency room he was noted to have a temperature of 100.5. His white blood count was 15,000 and a urinalysis suggested a urinary tract infection. He has a history of urinary retention and a catheter was inserted in 03/2018. He was evaluated by Dr. Márquez and started on tamsulosin. He failed a voiding trial in the late 04/11 and another trial earlier this month. He underwent cystoscopy on 06/11/2018 and at that time was discovered to have a small bladder calculus which was felt to be a contributory factor to his urinary retention. His catheter was reinserted and he was told that TURP and cystoscopy lithotripsy would be set up for treatment of his calculus and urinary retention. The patient came to the emergency room later in the evening due to chills. At the time of admission the patient also was noted to have cellulitis in his lower extremities and it was unclear whether this was the primary cause of his fever and chills. The patient was initially started on Levaquin and has been switched to Zosyn as a blood culture is positive for gram-negative rods. He has remained afebrile since he was admitted. His urine is grossly clear. White blood count this morning is 13,700. BUN/creatinine at the time of admission were 42/2.1. BUN/ creatinine this morning are worse at 50/2.96. The patient has a history of urolithiasis and has passed small stones in the past but has never required surgical intervention. He did have a Dyan urinary tract infection on 05/31/2018. This was associated with his indwelling catheter. Renal ultrasound on 05/12/2018 showed several right renal cysts. There was possible mild right hydronephrosis. Computed tomography scan of the abdomen and pelvis on 11/05/2016 showed right renal cysts and bilateral nonobstructive renal calculi. Review of Systems - Constitutional Reports chills, Reports malaise, Reports sweats - Cardiovascular Reports edema, Denies shortness of breath - Respiratory Denies congestion, Denies cough - Gastrointestinal Denies abdominal pain - Genitourinary Reports as per HPI Past Medical History Past Medical History: Asthma, Coronary Artery Disease (CAD), Cancer, Diabetes Mellitus, Hyperlipidemia, Hypertension, Prostate Disorder, Thyroid Disorder Additional Past Medical History / Comment(s): lymphoma, chemotherapy, radiation, - 06/2011 colitis History of Any Multi-Drug Resistant Organisms: None Reported Past Surgical History: Coronary Bypass/CABG, Orthopedic Surgery, Pacemaker Additional Past Surgical History / Comment(s): Lt ankle - plate. sinus surgery s/t cancer Past Anesthesia/Blood Transfusion Reactions: No Reported Reaction Date of Last Stent Placement:: 2001 Type of Cardiac Device: Permanent Pacemaker Device Placement Date:: 2001 Past Psychological History: No Psychological Hx Reported Smoking Status: Former smoker Past Alcohol Use History: None Reported Past Drug Use History: None Reported - Past Family History Brother(s) Additional Family Medical History / Comment(s): Patient has 3 brothers and one has history of coronary artery disease. Sister(s) Additional Family Medical History / Comment(s): Patient has one sister with history of SVT and AVR. Son(s) Additional Family Medical History / Comment(s): Patient has 2 sons and one has history of kidney stones. Patient does not have any daughters. Patient has a grandson treated for SVT. Father Family Medical History: No Reported History Additional Family Medical History / Comment(s): Father at age 72 with history of coronary artery disease and CABG Mother Family Medical History: No Reported History Additional Family Medical History / Comment(s): Mother at age 93 with history of coronary artery disease. Medications and Allergies Home Medications Medication Instructions Recorded Confirmed Type Atenolol [Tenormin] 25 mg PO DAILY 08/04/14 06/12/18 History Furosemide [Lasix] 40 mg PO BID 08/04/14 06/12/18 History Insulin NPH Human Isophane 20 unit SQ AC-BRKFST 08/04/14 06/12/18 History [NovoLIN N] Insulin Regular, Human [NovoLIN R] See Protocol SQ AC-TID 08/04/14 06/12/18 History Levothyroxine Sodium [Synthroid] 100 mcg PO DAILY 08/04/14 06/12/18 History Ranitidine HCl 150 mg PO DAILY 08/04/14 06/12/18 History glipiZIDE [Glucotrol XL] 5 mg PO DAILY 08/04/14 06/12/18 History Albuterol Inhaler [Ventolin Hfa 1 - 2 puff INHALATION RT-Q4H PRN 11/05/16 History Inhaler] Albuterol Nebulized [Ventolin 2.5 mg INHALATION RT-QID 11/05/16 06/12/18 History Nebulized] Insulin NPH Human Isophane 12 unit SQ AC-SUPPER 11/05/16 06/12/18 History [Humulin N] Ipratropium Nebulized [Atrovent 0.05 mg INHALATION RT-QID 11/05/16 06/12/18 History Nebulized 0.2 MG/ML] Verapamil HCl [Verapamil ER] 240 mg PO DAILY 11/05/16 06/12/18 History Vit C/E/Zn/Coppr/Lutein/Zeaxan 1 cap PO BID 04/22/18 06/12/18 History [Preservision Areds 2 Softgel] Hydrocortisone Suppository 25 mg RC BID #10 supp 04/23/18 06/12/18 Rx [Anusol-Hc] Polyethylene Glycol 3350 [Miralax] 17 gm PO DAILY #7 packet 04/23/18 06/12/18 Rx Tamsulosin HCl [Flomax] 0.4 mg PO AC-SUPPER #30 capsule 04/23/18 06/12/18 Rx Ammonium Lactate Cream [Lac-Hydrin 1 applic TOPICAL BID cream 05/07/18 Rx 12% Cream] Ngqukjta-Qaxaquzcku-Ndmi Oint 1 applic TOPICAL DAILY applic 05/07/18 06/12/18 Rx [Triple Antibiotic Ointment] Sodium Bicarbonate Tab 650 mg PO TID tab 05/07/18 06/12/18 Rx Lisinopril [Prinivil] 10 mg PO DAILY 06/12/18 06/12/18 History Potassium Chloride ER [K-Dur 20] 20 meq PO DAILY 06/12/18 06/12/18 History Allergies Allergy/AdvReac Type Severity Reaction Status Date / Time esmolol [From Brevibloc] Allergy Unknown Verified 06/12/18 09:21 Surgical - Exam Vital Signs Temp Pulse Resp BP Pulse Ox 99.9 F H 80 19 147/68 94 L 06/11/18 23:58 06/11/18 23:58 06/11/18 23:58 06/11/18 23:58 06/11/18 23:58 - General well developed, well nourished, no distress, obese - Neck no masses, no lymphadectomy - Respiratory normal respiratory effort - Abdomen Abdomen: soft, non tender, no organomegaly - Genitourinary normal penis with no external lesions, testicles non-tender, other (A Mcgovern catheter is in place and is draining clear urine.) - Musculoskeletal other (The patient has bilateral lower extremity edema with erythema consistent with cellulitis below the knees.) - Psychiatric memory intact Results - Labs 06/13/18 07:28 06/13/18 07:28 Abnormal Lab Results - Last 24 Hours (Table) 06/12/18 06/12/18 06/12/18 Range/Units 01:58 12:05 17:16 WBC (3.8-10.6) k/uL RBC (4.30-5.90) m/uL Hgb (13.0-17.5) gm/dL Hct (39.0-53.0) % Plt Count (150-450) k/uL Neutrophils # (1.3-7.7) k/uL BUN (9-20) mg/dL Creatinine (0.66-1.25) mg/dL POC Glucose (mg/dL) 217 H 243 H (75-99) mg/dL Calcium (8.4-10.2) mg/dL Troponin I 0.043 H* (0.000-0.034) ng/mL 06/12/18 06/13/18 06/13/18 Range/Units 20:41 07:28 07:28 WBC 13.7 H (3.8-10.6) k/uL RBC 2.77 L (4.30-5.90) m/uL Hgb 8.3 L (13.0-17.5) gm/dL Hct 26.4 L (39.0-53.0) % Plt Count 146 L (150-450) k/uL Neutrophils # 10.7 H (1.3-7.7) k/uL BUN 50 H (9-20) mg/dL Creatinine 2.96 H (0.66-1.25) mg/dL POC Glucose (mg/dL) 349 H (75-99) mg/dL Calcium 8.0 L (8.4-10.2) mg/dL Troponin I (0.000-0.034) ng/mL Microbiology - Last 24 Hours (Table) 06/12/18 01:58 Blood Culture Gram Stain - Preliminary Blood Blood Culture - Preliminary Gram Neg Bacilli 06/12/18 01:58 Blood Culture - Final Blood 06/12/18 01:01 Urine Culture - Preliminary Urine,Catheterized Diabetes panel 06/13/18 Range/Units 07:28 Sodium 138 (137-145) mmol/L Potassium 3.5 (3.5-5.1) mmol/L Chloride 104 (98-107) mmol/L Carbon Dioxide 27 (22-30) mmol/L BUN 50 H (9-20) mg/dL Creatinine 2.96 H (0.66-1.25) mg/dL Glucose 79 (74-99) mg/dL Calcium 8.0 L (8.4-10.2) mg/dL Calcium panel 06/13/18 Range/Units 07:28 Calcium 8.0 L (8.4-10.2) mg/dL Pituitary panel 06/13/18 Range/Units 07:28 Sodium 138 (137-145) mmol/L Potassium 3.5 (3.5-5.1) mmol/L Chloride 104 (98-107) mmol/L Carbon Dioxide 27 (22-30) mmol/L BUN 50 H (9-20) mg/dL Creatinine 2.96 H (0.66-1.25) mg/dL Glucose 79 (74-99) mg/dL Calcium 8.0 L (8.4-10.2) mg/dL Adrenal panel 06/13/18 Range/Units 07:28 Sodium 138 (137-145) mmol/L Potassium 3.5 (3.5-5.1) mmol/L Chloride 104 (98-107) mmol/L Carbon Dioxide 27 (22-30) mmol/L BUN 50 H (9-20) mg/dL Creatinine 2.96 H (0.66-1.25) mg/dL Glucose 79 (74-99) mg/dL Calcium 8.0 L (8.4-10.2) mg/dL Assessment and Plan (1) Urinary tract infection Narrative/Plan: The patient's fever and chills at the time of admission may have been from bacteremia related to cystoscopy performed on 06/11. This would be consistent with gram-negative rods growing in his blood. Patient is currently on broad- spectrum antibiotics and this should be continued pending results of the patient 's blood and urine cultures. The patient's renal function has worsened since the time of admission and this may be related to sepsis. If his BUN and creatinine do not improve tomorrow then renal ultrasound should be repeated to exclude any significant worsening of the left sided hydronephrosis. Dr. Márquez has followed the patient in the past and will see him again tomorrow. Current Visit: Yes Status: Acute Code(s): N39.0 - URINARY TRACT INFECTION, SITE NOT SPECIFIED SNOMED Code(s): 38924864
--- NOTE | 2018-06-13 10:28 | P.PN ---
Subjective Progress Note Date: 06/13/18 This is a 77-year-old pleasant gentleman who is a patient of Dr. Tay Rice. With past medical history significant for asthma, COPD, diabetes, hypertension, hypothyroidism, history of lymphoma status post chemotherapy and radiation, history of colitis, history of coronary artery disease status post CABG 2013, history of sick sinus syndrome status post pacemaker in 2001. Patient presented to the hospital today due to chills and rigors. Patient was seen yesterday afternoon at Dr. Márquez's office for a cystoscopy. Patient has history of urinary retention. During the procedure was noted that patient did have a stone in his bladder. Patient was sent home with a indwelling catheter. In the evening he started to shake uncontrollably and presented to the emergency room. Patient is also noted to have bilateral lower extremity edema and redness. Patient has multiple ulcerations all closed on bilateral lower extremities. Patient states that he often has episodes of cellulitis and it seems that his legs are starting to flare up. Patient denies any pain, shortness of breath, fever or chills at this time. 06/13: Blood cultures came back for gram-negative bacilli. Patient was seen by infection disease yesterday and Zosyn was started. Bilateral lower extremities were evaluated. Left lower extremity Andrew wrap was put on per Dr. Castillo order. Patient has been afebrile. WBCs this morning 13.7. Initial BUN/creatinine on admission 42/2.1. Today BUN 50 creatinine 2.96. Previous admission patient was set up to see nephrology which she did not keep his appointment. Urology consult is appreciated. If no improvement of kidney function ultrasound and kidney to be performed tomorrow. Patient denies any complaints at this time. Patient denies fever, chills, shortness of breath, chest pain. Review of Systems Constitutional: Denies chills, Reports fatigue, Denies fever Eyes: denies blurred vision, denies pain Ears, nose, mouth and throat: Denies headache, Denies nasal congestion, Denies nasal discharge, Denies sore throat Cardiovascular: Denies chest pain, Denies edema, Denies lightheadedness, Denies shortness of breath Respiratory: Denies cough Gastrointestinal: Denies abdominal pain, Denies diarrhea, Denies nausea, Denies vomiting Genitourinary: Denies discharge, Denies hematuria (Indwelling catheter in place) Musculoskeletal: Denies leg numbness/tingling, Denies myalgias Integumentary: Reports lesions (Redness, swelling, closed lesions), Denies pruritus, Denies rash Neurological: Denies numbness, Denies vertigo, Denies weakness Psychiatric: Denies anxiety, Denies depression Endocrine: Denies fatigue, Denies weight change Objective - Vital Signs Vital signs: Vital Signs Temp 97.8 F 06/13/18 08:48 Pulse 89 06/13/18 08:48 Resp 18 06/13/18 08:48 BP 109/59 06/13/18 08:48 Pulse Ox 96 06/13/18 08:48 Intake & Output 06/12/18 06/13/18 06/13/18 18:59 06:59 18:59 Intake Total 100 240 Output Total 100 1100 Balance 0 -860 Intake: Intake, IV Titration 240 Amount Sodium Chloride 0.9% 1, 240 000 ml @ 20 mls/hr IV . Q24H [facility] Rx#:[id number] Other 100 Output: Urine 100 1100 Other: Voiding Method Indwelling Catheter Indwelling Catheter Indwelling Catheter - Constitutional General appearance: Present: average body habitus, cooperative, no acute distress - EENT Eyes: Present: anicteric sclerae, EOMI, PERRLA ENT: Present: hearing grossly normal, NA/AT Ears: bilateral: normal - Neck Neck: Present: normal ROM. Absent: lymphadenopathy, rigidity, stridor - Respiratory Respiratory: bilateral: CTA, negative: diminished, dullness, rales, rhonchi, wheezing - Cardiovascular Rhythm: regular Heart sounds: normal: S1, S2 Abnormal Heart Sounds: Absent: systolic murmur, diastolic murmur, rub, S3 Gallop , S4 Gallop, click, other - Gastrointestinal General gastrointestinal: Present: normal bowel sounds. Absent: organomegaly, tenderness - Integumentary Integumentary: Present: pale - Neurologic Neurologic: Present: CNII-XII intact - Musculoskeletal Musculoskeletal: Present: gait normal, generalized weakness - Psychiatric Psychiatric: Present: A&O x's 3, appropriate affect, intact judgment & insight - Labs CBC & Chem 7: 06/13/18 07:28 06/13/18 07:28 Labs: Abnormal Lab Results - Last 24 Hours (Table) 01/06/12/18 06/12/18 Range/Units 01:58 12:05 17:16 WBC (3.8-10.6) k/uL RBC (4.30-5.90) m/uL Hgb (13.0-17.5) gm/dL Hct (39.0-53.0) % Plt Count (150-450) k/uL Neutrophils # (1.3-7.7) k/uL BUN (9-20) mg/dL Creatinine (0.66-1.25) mg/dL POC Glucose (mg/dL) 217 H 243 H (75-99) mg/dL Calcium (8.4-10.2) mg/dL Troponin I 0.043 H* (0.000-0.034) ng/mL 06/12/18 06/13/18 06/13/18 Range/Units 20:41 07:28 07:28 WBC 13.7 H (3.8-10.6) k/uL RBC 2.77 L (4.30-5.90) m/uL Hgb 8.3 L (13.0-17.5) gm/dL Hct 26.4 L (39.0-53.0) % Plt Count 146 L (150-450) k/uL Neutrophils # 10.7 H (1.3-7.7) k/uL BUN 50 H (9-20) mg/dL Creatinine 2.96 H (0.66-1.25) mg/dL POC Glucose (mg/dL) 349 H (75-99) mg/dL Calcium 8.0 L (8.4-10.2) mg/dL Troponin I (0.000-0.034) ng/mL Microbiology - Last 24 Hours (Table) 06/12/18 01:58 Blood Culture Gram Stain - Preliminary Blood Blood Culture - Preliminary Gram Neg Bacilli 06/12/18 01:58 Blood Culture - Final Blood 06/12/18 01:01 Urine Culture - Preliminary Urine,Catheterized Assessment and Plan Plan: 1. Cellulitis secondary to chronic venous stasis. Levofloxacin stopped. Zosyn IV piggyback started. Blood culture shows gram-negative bacilli. infectious disease appreciated. 2. Urinary tract infection secondary to urinary procedure. Continue levofloxacin 750 mg grams IV piggyback daily. Obtain urine culture. Urology consult is appreciated 3. BPH. Flomax 0.4 mg daily 3. Hypertension. Continue Tenormin 25 mg daily, continue Lasix 40 mg by mouth twice a day, verapamil 240 mg by mouth daily 4. Diabetes mellitus. Continue glipizide 2.5 mg by mouth twice a day, continue Humulin 20 units subcu before meals breakfast, 12 units subcu before meals supper. Continue insulin sliding scale. Monitor glucose before meals and at bedtime. 5. COPD. Continue DuoNeb as needed 6. Hypothyroid. Levothyroxine 100 g by mouth daily 7. Constipation MiraLAX 17 g by mouth daily 8. Elevated BUN and creatinine. Will monitor bili BUN and creatinine tomorrow , if still elevated ultrasound of the kidney to be performed. 8. GI prophylaxis. Pepcid 20 mg by mouth 9. DVT prophylaxis. Heparin 5000 units subcu every 12h. Discharge plan: Discharge home possibly 2 days Impression and plan of care have been directed as dictated by the signing physician. Emily Ricardo nurse practitioner acting as scribe for signing physician.
[2018-06-13 12:06] LABS: Glucose,Whole Blood 231 mg/dL (75-99)
[2018-06-13 17:19] LABS: Glucose,Whole Blood 306 mg/dL (75-99)
[2018-06-13] MEDS: TAMSULOSIN 0.4 MG CAP.ER.24H PO SCH (17:19)
--- NOTE | 2018-06-13 17:26 | P.CRDCN ---
History of Present Illness Consult date: 06/13/18 History of present illness: This is a 77-year-old gentleman with an extensive past medical history and cardiac history. The patient does have a past medical history consistent of coronary artery disease and status post coronary artery bypass grafting in 2013 , ischemic cardiomyopathy with the latest echocardiogram from March 2080 showing an EF between 35-40%, status post AICD, diabetes, hypertension, dyslipidemia, as well as history of chronic urinary retention, was brought to the emergency room by his family because of fever and chills. The patient just was discharged from the hospital in March 2018 when he came with the same presentation and was found to have urosepsis and a urinary catheter was placed. He follows with the urology service are regular basis. This time he came back to the hospital was fever, chills, and feeling weak. No symptoms of chest pain or chest discomfort. No shortness of breath. No dizziness or lightheadedness. And no feeling of heart racing or fluttering. He was found to have bilateral lower extremity cellulitis and currently he is on antibiotic. The troponin was checked and came in to be slightly abnormal. The patient did not have any symptoms of chest pain or chest discomfort. The EKG showed what it seems to be sinus mechanism. Past Medical History Past Medical History: Asthma, Coronary Artery Disease (CAD), Cancer, Diabetes Mellitus, Hyperlipidemia, Hypertension, Prostate Disorder, Thyroid Disorder Additional Past Medical History / Comment(s): lymphoma, chemotherapy, radiation, - 06/2011 colitis History of Any Multi-Drug Resistant Organisms: None Reported Past Surgical History: Coronary Bypass/CABG, Orthopedic Surgery, Pacemaker Additional Past Surgical History / Comment(s): Lt ankle - plate. sinus surgery s/t cancer Past Anesthesia/Blood Transfusion Reactions: No Reported Reaction Date of Last Stent Placement:: 2001 Type of Cardiac Device: Permanent Pacemaker Device Placement Date:: 2001 Past Psychological History: No Psychological Hx Reported Smoking Status: Former smoker Past Alcohol Use History: None Reported Past Drug Use History: None Reported - Past Family History Brother(s) Additional Family Medical History / Comment(s): Patient has 3 brothers and one has history of coronary artery disease. Sister(s) Additional Family Medical History / Comment(s): Patient has one sister with history of SVT and AVR. Son(s) Additional Family Medical History / Comment(s): Patient has 2 sons and one has history of kidney stones. Patient does not have any daughters. Patient has a grandson treated for SVT. Father Family Medical History: No Reported History Additional Family Medical History / Comment(s): Father at age 72 with history of coronary artery disease and CABG Mother Family Medical History: No Reported History Additional Family Medical History / Comment(s): Mother at age 93 with history of coronary artery disease. Medications and Allergies Home Medications Medication Instructions Recorded Confirmed Type Atenolol [Tenormin] 25 mg PO DAILY 08/04/14 06/12/18 History Furosemide [Lasix] 40 mg PO BID 08/04/14 06/12/18 History Insulin NPH Human Isophane 20 unit SQ AC-BRKFST 08/04/14 06/12/18 History [NovoLIN N] Insulin Regular, Human [NovoLIN R] See Protocol SQ AC-TID 08/04/14 06/12/18 History Levothyroxine Sodium [Synthroid] 100 mcg PO DAILY 08/04/14 06/12/18 History Ranitidine HCl 150 mg PO DAILY 08/04/14 06/12/18 History glipiZIDE [Glucotrol XL] 5 mg PO DAILY 08/04/14 06/12/18 History Albuterol Inhaler [Ventolin Hfa 1 - 2 puff INHALATION RT-Q4H PRN 11/05/16 History Inhaler] Albuterol Nebulized [Ventolin 2.5 mg INHALATION RT-QID 11/05/16 06/12/18 History Nebulized] Insulin NPH Human Isophane 12 unit SQ AC-SUPPER 11/05/16 06/12/18 History [Humulin N] Ipratropium Nebulized [Atrovent 0.05 mg INHALATION RT-QID 11/05/16 06/12/18 History Nebulized 0.2 MG/ML] Verapamil HCl [Verapamil ER] 240 mg PO DAILY 11/05/16 06/12/18 History Vit C/E/Zn/Coppr/Lutein/Zeaxan 1 cap PO BID 04/22/18 06/12/18 History [Preservision Areds 2 Softgel] Hydrocortisone Suppository 25 mg RC BID #10 supp 04/23/18 06/12/18 Rx [Anusol-Hc] Polyethylene Glycol 3350 [Miralax] 17 gm PO DAILY #7 packet 04/23/18 06/12/18 Rx Tamsulosin HCl [Flomax] 0.4 mg PO AC-SUPPER #30 capsule 04/23/18 06/12/18 Rx Ammonium Lactate Cream [Lac-Hydrin 1 applic TOPICAL BID cream 05/07/18 Rx 12% Cream] Qjpiicro-Jciulxrbzw-Oyoe Oint 1 applic TOPICAL DAILY applic 05/07/18 06/12/18 Rx [Triple Antibiotic Ointment] Sodium Bicarbonate Tab 650 mg PO TID tab 05/07/18 06/12/18 Rx Lisinopril [Prinivil] 10 mg PO DAILY 06/12/18 06/12/18 History Potassium Chloride ER [K-Dur 20] 20 meq PO DAILY 06/12/18 06/12/18 History Allergies Allergy/AdvReac Type Severity Reaction Status Date / Time esmolol [From Brevibloc] Allergy Unknown Verified 06/12/18 09:21 Physical Exam Vitals: Vital Signs Temp Pulse Pulse Resp BP Pulse Ox 06/13/18 16:07 97.6 F 74 16 101/50 97 06/13/18 15:19 72 06/13/18 15:08 70 06/13/18 11:08 76 06/13/18 10:57 74 06/13/18 08:48 97.8 F 89 18 109/59 96 06/13/18 07:23 78 06/13/18 07:10 70 06/13/18 00:28 97.7 F 57 L 16 96/57 94 L 06/12/18 19:50 98.2 F 95 17 100/53 95 06/12/18 19:32 72 06/12/18 19:24 76 Intake and Output 06/13/18 06/13/18 06/13/18 06:59 14:59 22:59 Intake Total 200 420 Output Total 1000 Balance -800 420 Intake: Intake, IV Titration 200 120 Amount Sodium Chloride 0.9% 1, 200 120 000 ml @ 20 mls/hr IV . Q24H [facility] Rx#:[id number] Other 300 Output: Urine 1000 Other: Voiding Method Indwelling Catheter Indwelling Catheter # Voids 3 - Constitutional General appearance: no acute distress - Respiratory Respiratory: bilateral: diminished - Cardiovascular Heart sounds: normal: S1, S2 Abnormal Heart Sounds: systolic murmur Results 06/13/18 07:28 06/13/18 07:28 Cardiac Enzymes 06/12/18 Range/Units 01:58 Troponin I 0.043 H* (0.000-0.034) ng/mL CBC 06/13/18 Range/Units 07:28 WBC 13.7 H (3.8-10.6) k/uL RBC 2.77 L (4.30-5.90) m/uL Hgb 8.3 L (13.0-17.5) gm/dL Hct 26.4 L (39.0-53.0) % Plt Count 146 L (150-450) k/uL Comprehensive Metabolic Panel 06/13/18 Range/Units 07:28 Sodium 138 (137-145) mmol/L Potassium 3.5 (3.5-5.1) mmol/L Chloride 104 (98-107) mmol/L Carbon Dioxide 27 (22-30) mmol/L BUN 50 H (9-20) mg/dL Creatinine 2.96 H (0.66-1.25) mg/dL Glucose 79 (74-99) mg/dL Calcium 8.0 L (8.4-10.2) mg/dL Current Medications Generic Name Dose Route Start Last Admin Trade Name Freq PRN Reason Stop Dose Admin Acetaminophen 650 mg 06/12/18 04:37 06/12/18 04:42 Tylenol Tab PO 650 mg Q4HR PRN Administration Fever and/ or Pain Albuterol/Ipratropium 3 ml 06/12/18 08:00 06/13/18 15:07 Duoneb 0.5 Mg-3 Mg/3 Ml Soln INHALATION 3 ml RT-QID [facility] Administration Albuterol/Ipratropium 3 ml 06/12/18 04:42 Duoneb 0.5 Mg-3 Mg/3 Ml Soln INHALATION RT-Q2H PRN Shortness Of Breath Or Wheezing Atenolol 25 mg 06/12/18 09:00 06/13/18 08:37 Tenormin PO 25 mg DAILY [facility] Administration Famotidine 20 mg 06/12/18 09:00 06/13/18 08:37 Pepcid PO 20 mg DAILY [facility] Administration Furosemide 40 mg 06/12/18 09:00 06/13/18 08:37 Lasix PO 40 mg BID [facility] Administration Glipizide 2.5 mg 06/12/18 09:00 06/13/18 08:37 Glucotrol PO 2.5 mg BID [facility] Administration Heparin Sodium (Porcine) 5,000 unit 06/12/18 09:00 06/13/18 08:37 Heparin SQ 5,000 unit Q12HR [facility] Administration Hydrocortisone Acetate 25 mg 06/12/18 09:00 06/13/18 08:34 Anusol-Hc RECTAL Not Given BID [facility] Sodium Chloride 1,000 mls @ 20 mls/hr 06/12/18 02:00 06/13/18 02:52 Saline 0.9% IV Not Given .Q24H [facility] Piperacillin Sod/Tazobactam 100 mls @ 25 mls/hr 06/12/18 16:00 06/13/18 16:04 Sod 3.375 gm/ Sodium Chloride IVPB 25 mls/hr Q8HR [facility] Administration Insulin Aspart 0 unit 06/12/18 07:30 06/13/18 17:19 Novolog SQ 5 unit ACHS [facility] Administration Protocol Insulin Human NPH 20 unit 06/12/18 07:30 06/13/18 08:37 Humulin N SQ 20 unit AC-BRKFST [facility] Administration Insulin Human NPH 12 unit 06/12/18 17:30 06/13/18 17:20 Humulin N SQ 12 unit AC-SUPPER [facility] Administration Lactic Acid 1 applic 06/12/18 09:00 06/13/18 08:37 Ammonium Lactate TOPICAL 1 applic BID [facility] Administration Levothyroxine Sodium 100 mcg 06/12/18 06:30 06/13/18 06:52 Synthroid PO 100 mcg DAILY@0630 [facility] Administration Naloxone HCl 0.2 mg 06/12/18 01:58 Narcan IV Q2M PRN Opioid Reversal Polyethylene Glycol 17 gm 06/12/18 09:00 06/13/18 08:34 Miralax PO Not Given DAILY [facility] Sodium Bicarbonate 650 mg 06/12/18 09:00 06/13/18 16:04 Sodium Bicarbonate Tab PO 650 mg TID [facility] Administration Tamsulosin HCl 0.4 mg 06/12/18 17:30 06/13/18 17:19 Flomax PO 0.4 mg AC-SUPPER [facility] Administration Verapamil HCl 240 mg 06/12/18 09:00 01/20/19 08:37 Isoptin Sr PO 240 mg DAILY [facility] Administration Intake and Output 06/13/18 06/13/18 06/13/18 06:59 14:59 22:59 Intake Total 200 420 Output Total 1000 Balance -800 420 Intake: Intake, IV Titration 200 120 Amount Sodium Chloride 0.9% 1, 200 120 000 ml @ 20 mls/hr IV . Q24H [facility] Rx#:[id number] Other 300 Output: Urine 1000 Other: Voiding Method Indwelling Catheter Indwelling Catheter # Voids 3 06/13/18 07:28 06/13/18 07:28 Assessment and Plan Assessment: Assessment #1 bilateral lower extremities cellulitis #2 chronic urinary retention with possible UTI #3 fever and chills/sepsis secondary to the above #4 mildly elevated cardiac enzymes in the absence of any chest pain #5 history of coronary artery disease and prior CABG #6 severe ischemic cardiomyopathy #7 status post AICD #8 multiple comorbid conditions Plan #1 conservative medical approach in the absence of any chest pain #2 continue the current medical regimen #3 no need to repeat the echo since recent echo showed impaired LV function #4 follow-up with the patient.
[2018-06-13 21:57] LABS: Glucose,Whole Blood 236 mg/dL (75-99)
--- NOTE | 2018-06-13 23:35 | PN ---
PROGRESS NOTE DATE OF SERVICE: 06/13/2018. REASON FOR FOLLOWUP: Gram-negative bacteremia source is urinary. INTERVAL HISTORY: The patient is currently afebrile. He has been breathing comfortably. The patient denies having any chest pain or shortness of breath or cough. No abdominal pain and no diarrhea. No pain in lower extremity. EXAM: Blood pressure 165/66 with a pulse of 62, temperature 97.8. He is 98% on room air. General description is an elderly male lying in bed in no distress. Respiratory system: Unlabored breathing. Clear to auscultation anteriorly. Heart S1, S2. Regular rate and rhythm. ABDOMEN: Soft, no tenderness. Extremities are 2+ edema of the feet. LABS: Hemoglobin 8.3, white count 13.7, BUN of 15, creatinine 0.96. DIAGNOSTIC IMPRESSION/PLAN: 1. The patient admitted to the hospital with sepsis. Source is urinary in this patient who did have recent outpatient urinary manipulation, cystoscopy, blood cultures with gram-negative bacilli. Plan at this time is to continue with Zosyn while waiting for the culture to finalize. 2. Bilateral lower extremity swelling. Local care with Aquacel Silver dressing to keep the swelling down and we will monitor his clinical course closely. Continue supportive care. MMODL / IJN: [id number] /
[2018-06-14] MEDS: LEVOTHYROXINE 100 MCG TAB PO SCH (05:31)
[2018-06-14] MEDS: SODIUM CHLORIDE 0.9% 1,000 ML IV SCH (05:32)
[2018-06-14 07:10] LABS: Glucose,Whole Blood 114 mg/dL (75-99)
[2018-06-14 08:38] LABS: Basophils % (A) 0 %; Eosinophils # (A) 0.7 k/uL (0-0.7); Eosinophils % (A) 9 %; HCT 27.6 % (39.0-53.0); HGB 8.7 gm/dL (13.0-17.5); Lymphocytes # (A) 1.4 k/uL (1.0-4.8); Lymphocytes % (A) 16 %; MCH 29.2 pg (25.0-35.0); MCHC 31.7 g/dL (31.0-37.0); MCV 92.2 fL (80.0-100.0); Mean Platelet Volume 6.6; Monocytes # (A) 0.4 k/uL (0-1.0); Monocytes % (A) 4 %; Neutrophils % (A) 70 %; Platelet Count 148 k/uL (150-450); RDW 15.6 % (11.5-15.5); WBC 8.7 k/uL (3.8-10.6)
[2018-06-14] MEDS: INSULIN ASPART 100 UNIT/ML 1 ML 10 ML VIAL SQ SCH ×4 (08:56→21:05)
[2018-06-14] MEDS: PIPERACILLIN-TAZOBACTAM 3.375 GM in SODIUM CHLORIDE 0.9% 100 ML IVPB SCH ×3 (09:11→23:50)
[2018-06-14] MEDS: FUROSEMIDE 40 MG TAB PO SCH ×2 (09:12→21:05)
[2018-06-14] MEDS: ATENOLOL 25 MG TAB PO SCH (09:12)
[2018-06-14] MEDS: INSULIN NPH 300 UNIT/3 ML VIAL SQ SCH ×2 (09:12→17:17)
[2018-06-14] MEDS: HEPARIN SODIUM,PORCINE 5,000 UNIT/ML 1 ML VIAL SQ SCH ×2 (09:12→21:04)
[2018-06-14] MEDS: SODIUM BICARBONATE TAB 650 MG TAB PO SCH ×3 (09:13→21:05)
[2018-06-14] MEDS: FAMOTIDINE 20 MG TAB PO SCH (09:13)
[2018-06-14] MEDS: AMMONIUM LACTATE 12% CREAM 140 GM TUBE TOPICAL SCH ×2 (09:13→21:04)
[2018-06-14] MEDS: VERAPAMIL SR 240 MG TABLET.ER PO SCH (09:13)
[2018-06-14] MEDS: HYDROCORTISONE SUPPOSITORY 25 MG SUPP RECTAL SCH ×2 (09:14→21:05)
[2018-06-14] MEDS: POLYETHYLENE GLYCOL 3350 17 GM POWD.PACK PO SCH (09:14)
[2018-06-14] MEDS: IPRATROPIUM-ALBUTEROL 3 ML NEB INHALATION SCH ×4 (09:15→20:13)
--- NOTE | 2018-06-14 10:23 | P.PN ---
Subjective Progress Note Date: 06/14/18 The patient has been in urine retention. I have try conservative measures, Flomax to get him to void spontaneously and is unable to do so. He had a cystoscopy last week identifying a bladder stone and obstructing prostate. He developed a urinary tract infection with sepsis after the manipulation. He is now on antibiotics. He is feeling better. He needs a TURP and cystoscopy lithotripsy which is being set up after the last office visit. Objective - Vital Signs Vital signs: Vital Signs Temp 97.6 F 06/14/18 09:19 Pulse 70 06/14/18 09:26 Resp 16 06/14/18 09:19 BP 133/63 06/14/18 09:19 Pulse Ox 98 06/14/18 09:19 Intake & Output 06/13/18 06/14/18 06/14/18 18:59 06:59 18:59 Intake Total 420 580 Output Total 1050 Balance 420 -470 Intake: Intake, IV Titration 120 100 Amount Piperacillin-Tazobactam 3 100 .375 gm In Sodium Chloride 0.9% 100 ml @ 25 mls/hr IVPB Q8HR [facility] Rx# :[id number] Sodium Chloride 0.9% 1, 120 000 ml @ 20 mls/hr IV . Q24H [facility] Rx#:[id number] Oral 480 Other 300 Output: Urine 1050 Other: Voiding Method Indwelling Catheter Indwelling Catheter Indwelling Catheter # Voids 3 - Labs CBC & Chem 7: 06/14/18 08:09 06/13/18 07:28 Labs: Abnormal Lab Results - Last 24 Hours (Table) 06/13/18 06/13/18 06/13/18 Range/Units 11:47 16:47 21:45 RBC (4.30-5.90) m/uL Hgb (13.0-17.5) gm/dL Hct (39.0-53.0) % RDW (11.5-15.5) % Plt Count (150-450) k/uL POC Glucose (mg/dL) 231 H 306 H 236 H (75-99) mg/dL 06/14/18 06/14/18 Range/Units 06:57 08:09 RBC 3.00 L (4.30-5.90) m/uL Hgb 8.7 L (13.0-17.5) gm/dL Hct 27.6 L (39.0-53.0) % RDW 15.6 H (11.5-15.5) % Plt Count 148 L (150-450) k/uL POC Glucose (mg/dL) 114 H (75-99) mg/dL Microbiology - Last 24 Hours (Table) 06/12/18 01:58 Blood Culture Gram Stain - Final Blood Blood Culture - Final Pasteurella multocida 06/12/18 01:01 Urine Culture - Final Urine,Catheterized
[2018-06-14 12:01] LABS: Glucose,Whole Blood 210 mg/dL (75-99)
[2018-06-14 12:12] LABS: Albumin 3.1 g/dL (3.5-5.0); Calcium 8.4 mg/dL (8.4-10.2); Potassium 4.1 mmol/L (3.5-5.1); Total Bilirubin 0.3 mg/dL (0.2-1.3); Total Protein 6.3 g/dL (6.3-8.2)
--- NOTE | 2018-06-14 14:48 | P.PN ---
<Radha Loco A - Last Filed: 06/14/18 14:44> Subjective Progress Note Date: 06/14/18 This is a 77-year-old pleasant gentleman who is a patient of Dr. Tay Rice. With past medical history significant for asthma, COPD, diabetes, hypertension, hypothyroidism, history of lymphoma status post chemotherapy and radiation, history of colitis, history of coronary artery disease status post CABG 2013, history of sick sinus syndrome status post pacemaker in 2001. Patient presented to the hospital today due to chills and rigors. Patient was seen yesterday afternoon at Dr. Márquez's office for a cystoscopy. Patient has history of urinary retention. During the procedure was noted that patient did have a stone in his bladder. Patient was sent home with a indwelling catheter. In the evening he started to shake uncontrollably and presented to the emergency room. Patient is also noted to have bilateral lower extremity edema and redness. Patient has multiple ulcerations all closed on bilateral lower extremities. Patient states that he often has episodes of cellulitis and it seems that his legs are starting to flare up. Patient denies any pain, shortness of breath, fever or chills at this time. 06/13: Blood cultures came back for gram-negative bacilli. Patient was seen by infection disease yesterday and Zosyn was started. Bilateral lower extremities were evaluated. Left lower extremity Andrew wrap was put on per Dr. Castillo order. Patient has been afebrile. WBCs this morning 13.7. Initial BUN/creatinine on admission 42/2.1. Today BUN 50 creatinine 2.96. Previous admission patient was set up to see nephrology which she did not keep his appointment. Urology consult is appreciated. If no improvement of kidney function ultrasound and kidney to be performed tomorrow. Patient denies any complaints at this time. Patient denies fever, chills, shortness of breath, chest pain. 06/14: Patient has been seen by Dr. Bautista with recommendations for conservative medical approach and continue current medical regime. Patient denies having any chest pain. He denies having any abdominal pain patient. He states he only could not have a bowel movement because of urinary retention. He does have left-sided wheezing for which incentive spirometry and Pulmicort added. Patient does not have home oxygen. Blood sugars have been elevated but are improving. Repeat BUN 48 and creatinine 2.66. 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 He is continued on Zosyn and followed by Dr. Castillo. Dr. Márquez has recommended TURP and cystoscopy lithotripsy which is being set up through his office. Review of Systems Constitutional: Denies chills, Reports fatigue, Denies fever Eyes: denies blurred vision, denies pain Ears, nose, mouth and throat: Denies headache, Denies nasal congestion, Denies nasal discharge, Denies sore throat Cardiovascular: Denies chest pain, Denies edema, Denies lightheadedness, Denies shortness of breath Respiratory: Denies cough Gastrointestinal: Denies abdominal pain, Denies diarrhea, Denies nausea, Denies vomiting Genitourinary: Denies discharge, Denies hematuria (Indwelling catheter in place) Musculoskeletal: Denies leg numbness/tingling, Denies myalgias Integumentary: Reports lesions (Redness, swelling, closed lesions), Denies pruritus Neurological: Denies numbness, Denies vertigo, Denies weakness Psychiatric: Denies anxiety, Denies depression Endocrine: Denies fatigue, Denies weight change Objective - Vital Signs Vital signs: Vital Signs Temp 97.8 F 06/13/18 19:38 Pulse 62 06/13/18 19:38 Resp 16 06/13/18 19:38 BP 116/66 06/13/18 19:38 Pulse Ox 98 06/13/18 19:38 Intake & Output 06/13/18 06/14/18 06/14/18 18:59 06:59 18:59 Intake Total 420 580 Output Total 1050 Balance 420 -470 Intake: Intake, IV Titration 120 100 Amount Piperacillin-Tazobactam 3 100 .375 gm In Sodium Chloride 0.9% 100 ml @ 25 mls/hr IVPB Q8HR [facility] Rx# :[id number] Sodium Chloride 0.9% 1, 120 000 ml @ 20 mls/hr IV . Q24H [facility] Rx#:[id number] Oral 480 Other 300 Output: Urine 1050 Other: Voiding Method Indwelling Catheter Indwelling Catheter # Voids 3 - Exam General appearance: Present: average body habitus, cooperative, no acute distress - EENT Eyes: Present: anicteric sclerae, EOMI, PERRLA ENT: Present: hearing grossly normal, NA/AT Ears: bilateral: normal - Neck Neck: Present: normal ROM. Absent: lymphadenopathy, rigidity, stridor - Respiratory Respiratory: Left sided expiratory wheeze, negative: diminished, dullness, rales , rhonchi, wheezing - Cardiovascular Rhythm: regular Heart sounds: normal: S1, S2 Abnormal Heart Sounds: Absent: systolic murmur, diastolic murmur, rub, S3 Gallop , S4 Gallop, click, other - Gastrointestinal General gastrointestinal: Present: normal bowel sounds. Absent: organomegaly, tenderness Mcgovern catheter draining darren urine. - Integumentary Integumentary: Present: pale - Neurologic Neurologic: Present: CNII-XII intact - Musculoskeletal Musculoskeletal: Present: gait normal, generalized weakness - Psychiatric Psychiatric: Present: A&O x's 3, appropriate affect, intact judgment & insight - Labs CBC & Chem 7: 06/14/18 08:09 06/14/18 11:13 Labs: Abnormal Lab Results - Last 24 Hours (Table) 06/13/18 06/13/18 06/13/18 Range/Units 07:28 07:28 11:47 WBC 13.7 H (3.8-10.6) k/uL RBC 2.77 L (4.30-5.90) m/uL Hgb 8.3 L (13.0-17.5) gm/dL Hct 26.4 L (39.0-53.0) % Plt Count 146 L (150-450) k/uL Neutrophils # 10.7 H (1.3-7.7) k/uL BUN 50 H (9-20) mg/dL Creatinine 2.96 H (0.66-1.25) mg/dL POC Glucose (mg/dL) 231 H (75-99) mg/dL Calcium 8.0 L (8.4-10.2) mg/dL 06/13/18 06/13/18 06/14/18 Range/Units 16:47 21:45 06:57 WBC (3.8-10.6) k/uL RBC (4.30-5.90) m/uL Hgb (13.0-17.5) gm/dL Hct (39.0-53.0) % Plt Count (150-450) k/uL Neutrophils # (1.3-7.7) k/uL BUN (9-20) mg/dL Creatinine (0.66-1.25) mg/dL POC Glucose (mg/dL) 306 H 236 H 114 H (75-99) mg/dL Calcium (8.4-10.2) mg/dL Microbiology - Last 24 Hours (Table) 06/12/18 01:58 Blood Culture Gram Stain - Final Blood Blood Culture - Final Pasteurella multocida 06/12/18 01:01 Urine Culture - Final Urine,Catheterized Assessment and Plan Plan: 1. 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 Continue Zosyn. 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 infectious disease appreciated. 2. Urinary tract infection secondary to cystoscopy. Continue Zosyn. Obtain urine culture. Urology consult is appreciated 3. 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 Flomax 0.4 mg daily 4. Hypertension. Continue Tenormin 25 mg daily, continue Lasix 40 mg by mouth twice a day, verapamil 240 mg by mouth daily 5. Diabetes mellitus. Continue glipizide 2.5 mg by mouth twice a day, continue Humulin 20 units subcu before meals breakfast, 12 units subcu before meals supper. Continue insulin sliding scale. Monitor glucose before meals and at bedtime. 6. COPD. Continue DuoNeb as needed 7. Hypothyroid. Levothyroxine 100 g by mouth daily 8. Constipation MiraLAX 17 g by mouth daily 9. Acute kidney injury with chronic kidney disease stage III secondary to diabetic nephropathy, no floor sclerosis and some degree of obstructive uropathy. 10. GI prophylaxis. Pepcid 20 mg by mouth 11. DVT prophylaxis. Heparin 5000 units subcu every 12h. Discharge plan: Discharge home Impression and plan of care have been directed as dictated by the signing physician. Radha Loco nurse practitioner acting as scribe for signing physician. <Mar Bernal - Last Filed: 06/15/18 14:04> Objective - Vital Signs Vital signs: Vital Signs Temp 97.8 F 06/15/18 07:00 Pulse 72 06/15/18 11:52 Resp 16 06/15/18 08:00 BP 136/64 06/15/18 07:00 Pulse Ox 96 06/15/18 08:20 Intake & Output 06/14/18 06/15/18 06/15/18 18:59 06:59 18:59 Intake Total 236 Output Total 1500 450 Balance -1500 -214 Intake: Oral 236 Output: Urine 1500 450 Other: Voiding Method Indwelling Catheter Indwelling Catheter Indwelling Catheter # Voids 3 # Bowel Movements 1 - Labs CBC & Chem 7: 06/14/18 08:09 06/15/18 07:43 Labs: Abnormal Lab Results - Last 24 Hours (Table) 06/14/18 06/14/18 06/15/18 Range/Units 16:28 19:42 06:48 Carbon Dioxide (22-30) mmol/L BUN (9-20) mg/dL Creatinine (0.66-1.25) mg/dL Glucose (74-99) mg/dL POC Glucose (mg/dL) 174 H 184 H 123 H (75-99) mg/dL 06/15/18 06/15/18 Range/Units 07:43 12:10 Carbon Dioxide 31 H (22-30) mmol/L BUN 44 H (9-20) mg/dL Creatinine 2.63 H (0.66-1.25) mg/dL Glucose 120 H (74-99) mg/dL POC Glucose (mg/dL) 154 H (75-99) mg/dL Microbiology - Last 24 Hours (Table) 06/14/18 11:13 Blood Culture - Preliminary Blood No Growth after 24 hours Assessment and Plan Plan: I performed a history & physical examination of the patient and discussed their management with my nurse practitioner, Radha Loco . I reviewed the nurse practitioner's note and agree with the documented findings and plan of care. Significant 1+ nonpitting edema with chronic venous stasis in the lower extremities. Did have some wheezing on examination in the left lower lobe of lung concerning for bronchospasm. Chest x-ray will be ordered today. Patient started on Pulmicort twice daily. Labs reviewed patient's creatinine is baseline. Blood cultures positive for pasteurella but appears to be skin contaminant infectious disease to recommend oral antibiotics on discharge. Patient to apply Andrew wraps in the lower extremities to prevent chronic stasis and reinfection. The findings and the impression was discussed with the patient. I attest to the documentation by the nurse practitioner. The above note has been dictated with the help of Dragon dictation and is bound to have errors, that could misrepresent the fact.
--- NOTE | 2018-06-14 15:36 | PN ---
PROGRESS NOTE DATE OF SERVICE: 06/14/2018 REASON FOR FOLLOWUP: Gram-negative bacteremia, source is urinary. INTERVAL HISTORY: The patient is currently afebrile. He is breathing comfortably, though denies having any chest pain or cough. No abdominal pain or any diarrhea. Denies any pain to the legs. PHYSICAL EXAMINATION: Blood pressure is 120/62 with a pulse of 70, temperature 97.7, he is 98% on room air. General description is an elderly male, lying in bed in no distress. RESPIRATORY SYSTEM: Unlabored breathing, clear to auscultation anteriorly. HEART: S1, S2. Regular rate and rhythm. ABDOMEN: Soft, no tenderness. EXTREMITIES: Some swelling, chronic, minimal redness, no drainage. LABS: White count of 8.7, BUN of 48, creatinine is 2.66. DIAGNOSTIC IMPRESSION AND PLAN: Patient with gram-negative bacteremia, possibly . Initial concern for urinary source as the patient's symptoms started after cystoscopy, which is possible, but very unusual source of urinary tract infection with urine culture negative. However, currently no other clinical focus of infection with bacteremia. Patient is currently covered with Zosyn will be transitioned to p.o. antibiotic on discharge. Continue with supportive care. MMODL / IJN: [id number] /
[2018-06-14 16:40] LABS: Glucose,Whole Blood 174 mg/dL (75-99)
[2018-06-14] MEDS: TAMSULOSIN 0.4 MG CAP.ER.24H PO SCH (17:18)
[2018-06-14 19:54] LABS: Glucose,Whole Blood 184 mg/dL (75-99)
[2018-06-14] MEDS: BUDESONIDE 0.5 MG/2 ML NEBU INHALATION SCH (20:13)
[2018-06-15] MEDS: SODIUM CHLORIDE 0.9% 1,000 ML IV SCH (03:30)
[2018-06-15] MEDS: LEVOTHYROXINE 100 MCG TAB PO SCH (05:34)
[2018-06-15] MEDS: INSULIN ASPART 100 UNIT/ML 1 ML 10 ML VIAL SQ SCH ×2 (06:52→12:33)
[2018-06-15 07:00] LABS: Glucose,Whole Blood 123 mg/dL (75-99)
[2018-06-15] MEDS: PIPERACILLIN-TAZOBACTAM 3.375 GM in SODIUM CHLORIDE 0.9% 100 ML IVPB SCH (07:41)
[2018-06-15] MEDS: AMMONIUM LACTATE 12% CREAM 140 GM TUBE TOPICAL SCH (07:42)
[2018-06-15] MEDS: HEPARIN SODIUM,PORCINE 5,000 UNIT/ML 1 ML VIAL SQ SCH (07:42)
[2018-06-15] MEDS: VERAPAMIL SR 240 MG TABLET.ER PO SCH (07:42)
[2018-06-15] MEDS: FUROSEMIDE 40 MG TAB PO SCH (07:43)
[2018-06-15] MEDS: INSULIN NPH 300 UNIT/3 ML VIAL SQ SCH (07:43)
[2018-06-15] MEDS: FAMOTIDINE 20 MG TAB PO SCH (07:43)
[2018-06-15] MEDS: POLYETHYLENE GLYCOL 3350 17 GM POWD.PACK PO SCH (07:43)
[2018-06-15] MEDS: ATENOLOL 25 MG TAB PO SCH (07:43)
[2018-06-15] MEDS: SODIUM BICARBONATE TAB 650 MG TAB PO SCH (07:43)
[2018-06-15] MEDS: HYDROCORTISONE SUPPOSITORY 25 MG SUPP RECTAL SCH (07:48)
[2018-06-15] MEDS: IPRATROPIUM-ALBUTEROL 3 ML NEB INHALATION SCH ×3 (08:17→16:07)
[2018-06-15] MEDS: BUDESONIDE 0.5 MG/2 ML NEBU INHALATION SCH (08:17)
[2018-06-15 08:38] LABS: Calcium 8.5 mg/dL (8.4-10.2); Potassium 4.1 mmol/L (3.5-5.1)
[2018-06-15 11:00] VITALS: RESP 16; TEMP 97.8
[2018-06-15 12:22] LABS: Glucose,Whole Blood 154 mg/dL (75-99)
--- NOTE | 2018-06-15 13:54 | P.DS ---
Providers Date of admission: 06/12/18 01:57 Expected date of discharge: 06/15/18 Attending physician: Solange Jain Consults: 06/12/18 06:57 Consult Physician Routine Consulting Provider: Samuel Márquez Consult Reason/Comments: Your patient post procedure Do you want consulting provider notified?: Yes 06/12/18 12:34 Consult Physician Routine Consulting Provider: Susanne Castillo Consult Reason/Comments: Chronic venous statis/ cellulitis Do you want consulting provider notified?: Yes 06/13/18 01:02 Consult Physician Routine Consulting Provider: Ashley Chávez Consult Reason/Comments: increased troph Do you want consulting provider notified?: Yes Primary care physician: [facility] Course: This is a 77-year-old pleasant gentleman who is a patient of Dr. Tay Rice. With past medical history significant for asthma, COPD, diabetes, hypertension, hypothyroidism, history of lymphoma status post chemotherapy and radiation, history of colitis, history of coronary artery disease status post CABG 2013, history of sick sinus syndrome status post pacemaker in 2001. Patient presented to the hospital today due to chills and rigors. Patient was seen yesterday afternoon at Dr. Márquez's office for a cystoscopy. Patient has history of urinary retention. During the procedure was noted that patient did have a stone in his bladder. Patient was sent home with a indwelling catheter. In the evening he started to shake uncontrollably and presented to the emergency room. Patient is also noted to have bilateral lower extremity edema and redness. Patient has multiple ulcerations all closed on bilateral lower extremities. Patient states that he often has episodes of cellulitis and it seems that his legs are starting to flare up. Patient denies any pain, shortness of breath, fever or chills at this time. 06/13: Blood cultures came back for gram-negative bacilli. Patient was seen by infection disease yesterday and Zosyn was started. Bilateral lower extremities were evaluated. Left lower extremity Andrew wrap was put on per Dr. Castillo order. Patient has been afebrile. WBCs this morning 13.7. Initial BUN/creatinine on admission 42/2.1. Today BUN 50 creatinine 2.96. Previous admission patient was set up to see nephrology which she did not keep his appointment. Urology consult is appreciated. If no improvement of kidney function ultrasound and kidney to be performed tomorrow. Patient denies any complaints at this time. Patient denies fever, chills, shortness of breath, chest pain. 06/14: Patient has been seen by Dr. Bautista with recommendations for conservative medical approach and continue current medical regime. Patient denies having any chest pain. He denies having any abdominal pain patient. He states he only could not have a bowel movement because of urinary retention. He does have left-sided wheezing for which incentive spirometry and Pulmicort added. Patient does not have home oxygen. Blood sugars have been elevated but are improving. Repeat BUN 48 and creatinine 2.66. 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 He is continued on Zosyn and followed by Dr. Castillo. Dr. Márquez has recommended TURP and cystoscopy lithotripsy which is being set up through his office. 06/15: Repeat BUN 44 and creatinine 2.63, Blood Glucose Running between 123 and 154. He Has Been Afebrile. Dr. Castillo Has Chosen Augmentin for Home, Renal Dosed for 10 More Days. Patient Is Anxious to Be Discharged. He Does State He Has a Procedure Scheduled with Dr. Márquez on June 24. Patient Will Be Discharged Home Today in Stable Condition. Discharge diagnoses: 1. 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 2. Urinary tract infection secondary to cystoscopy. 3. 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 4. Hypertension. 5. Diabetes mellitus. 6. COPD. 7. Hypothyroid. 8. Constipation 9. Acute kidney injury with chronic kidney disease stage III secondary to diabetic nephropathy, nephrosclerosis and some degree of obstructive uropathy. Discharge plan: Discharge home with [facility] Impression and plan of care have been directed as dictated by the signing physician. Radha Loco nurse practitioner acting as scribe for signing physician. Patient Condition at Discharge: Good Plan - Discharge Summary Discharge Rx Participant: Yes New Discharge Prescriptions: New SILVER sulfADIAZINE CREAM [Silvadene Cream] 1 applic TOPICAL BID #50 gram Amoxic-Pot Clav 500-125 mg [Augmentin 500-125 mg] 1 tab PO Q12HR #20 tab Continue glipiZIDE [Glucotrol XL] 5 mg PO DAILY Atenolol [Tenormin] 25 mg PO DAILY Ranitidine HCl 150 mg PO DAILY Levothyroxine Sodium [Synthroid] 100 mcg PO DAILY Insulin NPH Human Isophane [NovoLIN N] 20 unit SQ AC-BRKFST Insulin Regular, Human [NovoLIN R] See Protocol SQ AC-TID Insulin NPH Human Isophane [Humulin N] 12 unit SQ AC-SUPPER Verapamil HCl [Verapamil ER] 240 mg PO DAILY Albuterol Inhaler [Ventolin Hfa Inhaler] 1 - 2 puff INHALATION RT-Q4H PRN PRN Reason: Shortness Of Breath Albuterol Nebulized [Ventolin Nebulized] 2.5 mg INHALATION RT-QID Ipratropium Nebulized [Atrovent Nebulized 0.2 MG/ML] 0.05 mg INHALATION RT- QID Vit C/E/Zn/Coppr/Lutein/Zeaxan [Preservision Areds 2 Softgel] 1 cap PO BID Polyethylene Glycol 3350 [Miralax] 17 gm PO DAILY #7 packet Tamsulosin HCl [Flomax] 0.4 mg PO AC-SUPPER #30 capsule Hydrocortisone Suppository [Anusol-Hc] 25 mg RC BID #10 supp Ammonium Lactate Cream [Lac-Hydrin 12% Cream] 1 applic TOPICAL BID cream Sodium Bicarbonate Tab 650 mg PO TID tab Potassium Chloride ER [K-Dur 20] 20 meq PO DAILY Changed Furosemide [Lasix] 40 mg PO DAILY #0 Discontinued Kskkfnuj-Vnzucvrfvp-Vwug Oint [Triple Antibiotic Ointment] 1 applic TOPICAL DAILY applic Lisinopril [Prinivil] 10 mg PO DAILY Discharge Medication List Atenolol [Tenormin] 25 mg PO DAILY 08/04/14 [History] Insulin NPH Human Isophane [NovoLIN N] 20 unit SQ AC-BRKFST 08/04/14 [History] Insulin Regular, Human [NovoLIN R] See Protocol SQ AC-TID 08/04/14 [History] Levothyroxine Sodium [Synthroid] 100 mcg PO DAILY 08/04/14 [History] Ranitidine HCl 150 mg PO DAILY 08/04/14 [History] glipiZIDE [Glucotrol XL] 5 mg PO DAILY 08/04/14 [History] Albuterol Inhaler [Ventolin Hfa Inhaler] 1 - 2 puff INHALATION RT-Q4H PRN [History] Albuterol Nebulized [Ventolin Nebulized] 2.5 mg INHALATION RT-QID 11/05/16 [ History] Insulin NPH Human Isophane [Humulin N] 12 unit SQ AC-SUPPER 11/05/16 [History] Ipratropium Nebulized [Atrovent Nebulized 0.2 MG/ML] 0.05 mg INHALATION RT-QID 11/05/16 [History] Verapamil HCl [Verapamil ER] 240 mg PO DAILY 11/05/16 [History] Vit C/E/Zn/Coppr/Lutein/Zeaxan [Preservision Areds 2 Softgel] 1 cap PO BID 04/22 [History] Hydrocortisone Suppository [Anusol-Hc] 25 mg RC BID #10 supp 04/23/18 [Rx] Polyethylene Glycol 3350 [Miralax] 17 gm PO DAILY #7 packet 04/23/18 [Rx] Tamsulosin HCl [Flomax] 0.4 mg PO AC-SUPPER #30 capsule 04/23/18 [Rx] Ammonium Lactate Cream [Lac-Hydrin 12% Cream] 1 applic TOPICAL BID cream [Rx] Sodium Bicarbonate Tab 650 mg PO TID tab 05/07/18 [Rx] Potassium Chloride ER [K-Dur 20] 20 meq PO DAILY 06/12/18 [History] Amoxic-Pot Clav 500-125 mg [Augmentin 500-125 mg] 1 tab PO Q12HR #20 tab [Rx] Furosemide [Lasix] 40 mg PO DAILY #0 06/15/18 [Rx] SILVER sulfADIAZINE CREAM [Silvadene Cream] 1 applic TOPICAL BID #50 gram [Rx] Follow up Appointment(s)/Referral(s): Susanne Castillo MD [STAFF PHYSICIAN] - 06/29/18 1:00 pm Samuel Márquez MD [STAFF PHYSICIAN] - 1 Week (for surgery on 06/24 already scheduled) Samuel Venegas MD [Primary Care Provider] - 06/22/18 1:00 pm [facility] Visiting Nurse, [NON-STAFF] - As Needed Patient Instructions/Handouts: Cellulitis (DC) Discharge Disposition: HOME WITH HOME HEALTH SERVICES
[2018-06-15 15:46] VITALS: BP 122/66
[2018-06-15 16:18] VITALS: PULSE 75
--- NOTE | 2018-06-15 18:05 | PN ---
PROGRESS NOTE DATE OF SERVICE: 06/15/2018. REASON FOR FOLLOW UP: Pasteurella bacteremia, source likely lower extremity cellulitis. INTERVAL HISTORY: The patient was seen on rounds earlier this afternoon. The patient has been afebrile. The patient is breathing comfortably. Denies having any chest pain or shortness of breath. No cough. No abdominal pain or any pain to the leg area. PHYSICAL EXAMINATION: Blood pressure is 122/66 with pulse of 50, temperature 97.8. He is 98% on room air. General description is an elderly male lying in bed in no distress. Respiratory system: Unlabored breathing. Clear to auscultation anteriorly. Heart is S1, S2. Regular rate and rhythm. Abdomen: Soft. No tenderness. Legs: Currently with some swelling redness or any drainage. LABS: Creatinine is 2.63. DIAGNOSTIC IMPRESSION AND PLAN: Patient with with bacteremia, source has been lower extremity cellulitis. The patient does have dogs and cats that frequently interact with the patient. The patient told to be careful and avoid contact of the animals with these wounds, as licking of these wounds can lead to bacteremia disease infection. The patient to finish therapy with oral Augmentin with close outpatient followup. Otherwise Andrew wrap to the left leg to keep the swelling down. No need for any Silvadene. MMODL / IJN: [id number] /
--- NOTE | 2018-06-16 15:26 | CDI ---
Documentation Clarification Form Date: 06/16/18 From: Asha Akins Phone: If you have a question regarding this query, please contact Aleyda Coffey at [phone] between 8am and 5pm. Admit Date: 06/12/2018 1:57:00 AM Patient Name: Vinnie Orozco Visit Number: [id number] Discharge Date: 06/15/2018 4:40:00 PM ATTENTION: The Clinical Documentation Specialists (CDI) and [facility] Coding Staff appreciate your assistance in clarifying documentation. Please respond to the clarification below the line at the bottom and electronically sign. The CDI & [facility] Coding staff will review the response and follow-up if needed. Please note: Queries are made part of the Legal Health Record. If you have any questions, please contact the author of this message via ITS. Dr. Mar Horton bacteremia documented in the discharge summary, in your 06/14 and progress notes and gram negative bacteremia is documented in the consult notes. Patient history/risk factors: Patient was admitted for UTI from cystooscopy, blitateraly lower extremity cellulitis, BPH with urinary retention and BPH. Clinical Indicators: Fever, chills and shortness of breath. WBC: 15.1 Left Shift: 13.3 Blood Culture: Pasturella multocida Treatment: Antibiotics: IV fluids at 20 mls/hr, IV Zosyn, IV levofloxacin, Bacteremia is considered a lab finding. Please clarify if that lab finding is clinical indicator of a more definitive medical diagnosis such as: Sepsis Infectious Process, please specify: Other, please specify Unable to determine If sepsis, please clarify the etiology: Cellulitis UTI Other (please specify) Unable to determine sepsis sec to cellulitis MTDD
== END 2018-06-15 16:40 | disposition home health service (06) | DRG 868 ==
LOC: EC 23:48 → 4SSUR 06-12 01:57
PROVIDERS: ADMIT Internal Medicine; ATTEND Internal Medicine
DX: A28.0 Pasteurellosis (principal); L03.115 Cellulitis of right lower limb; L03.116 Cellulitis of left lower limb; N17.9 Acute kidney failure, unspecified; N39.0 Urinary tract infection, site not specified; N13.30 Unspecified hydronephrosis; T81.40XA Infection following a procedure, unspecified, initial encounter; J44.9 Chronic obstructive pulmonary disease, unspecified; E11.22 Type 2 diabetes mellitus with diabetic chronic kidney disease; I25.5 Ischemic cardiomyopathy; N28.1 Cyst of kidney, acquired; N18.3 Chronic kidney disease, stage 3 (moderate); E78.5 Hyperlipidemia, unspecified; E03.9 Hypothyroidism, unspecified; I12.9 Hypertensive chronic kidney disease with stage 1 through stage 4 chronic kidney disease, or unspecified chronic kidney disease; I25.10 Atherosclerotic heart disease of native coronary artery without angina pectoris; I87.8 Other specified disorders of veins; K59.00 Constipation, unspecified; N21.0 Calculus in bladder; N40.1 Benign prostatic hyperplasia with lower urinary tract symptoms; R33.8 Other retention of urine; R77.9 Abnormality of plasma protein, unspecified; Z79.4 Long term (current) use of insulin; Z79.890 Hormone replacement therapy; Z79.899 Other long term (current) drug therapy; Z95.810 Presence of automatic (implantable) cardiac defibrillator; Z95.1 Presence of aortocoronary bypass graft; Z92.3 Personal history of irradiation; Z92.21 Personal history of antineoplastic chemotherapy; Z87.442 Personal history of urinary calculi; Z87.891 Personal history of nicotine dependence; Z85.72 Personal history of non-Hodgkin lymphomas; Z88.8 Allergy status to other drugs, medicaments and biological substances; Z95.5 Presence of coronary angioplasty implant and graft; Z82.49 Family history of ischemic heart disease and other diseases of the circulatory system; Y83.8 Other surgical procedures as the cause of abnormal reaction of the patient, or of later complication, without mention of misadventure at the time of the procedure
CPT/HCPCS: 36415; 71046; 80048; 80053; 81001; 83605; 84484; 85025; 87040; 87086; 87502; 93005; 94640; 94760; 96365; 96375; 99285

== ENCOUNTER → 2018-06-22 | Outpatient (CLI) | payer MEDICARE ==
[2018-06-22 14:45] LABS: Basophils % (A) 1 %; Eosinophils # (A) 0.5 k/uL (0-0.7); Eosinophils % (A) 6 %; HCT 28.5 % (39.0-53.0); HGB 8.9 gm/dL (13.0-17.5); Hypochromasia Slight; Lymphocytes # (A) 1.7 k/uL (1.0-4.8); Lymphocytes % (A) 20 %; MCH 29.5 pg (25.0-35.0); MCHC 31.4 g/dL (31.0-37.0); MCV 93.9 fL (80.0-100.0); Mean Platelet Volume 6.8; Monocytes # (A) 0.3 k/uL (0-1.0); Monocytes % (A) 4 %; Neutrophils # (A) 5.7 k/uL (1.3-7.7); Neutrophils % (A) 68 %; Platelet Count 241 k/uL (150-450); RBC 3.03 m/uL (4.30-5.90); RDW 15.9 % (11.5-15.5); WBC 8.4 k/uL (3.8-10.6)
[2018-06-22 14:53] LABS: Calcium 9.2 mg/dL (8.4-10.2); Potassium 3.8 mmol/L (3.5-5.1)
== END | disposition home or self-care (01) ==
LOC: LABPAT 13:31
PROVIDERS: ATTEND Urology
DX: Z01.812 Encounter for preprocedural laboratory examination (principal); R06.02 Shortness of breath; I10 Essential (primary) hypertension; E11.9 Type 2 diabetes mellitus without complications; R33.9 Retention of urine, unspecified; N20.9 Urinary calculus, unspecified; N40.1 Benign prostatic hyperplasia with lower urinary tract symptoms
CPT/HCPCS: 36415; 80048; 85025

== ENCOUNTER 2018-06-24 09:51 | Day surgery (SDC) | payer MEDICARE ==
--- NOTE | 2018-06-24 07:18 | P.GSHP ---
History of Present Illness H&P Date: 06/24/18 76 yo male in urine retention with a bladder stone comes for turp and cystolithotripsy He failed medications to liberate him from his catheter. - Review of Systems All systems: negative - Genitourinary (Male) Genitourinary: Reports as per HPI Past Medical History Past Medical History: Asthma, Coronary Artery Disease (CAD), Cancer, Diabetes Mellitus, Hyperlipidemia, Hypertension, Prostate Disorder, Thyroid Disorder Additional Past Medical History / Comment(s): recent admission "unable to urinate",bladder stones,and urinary infection and cellulitis kailyn legs,lymphoma, chemotherapy, radiation,- 06/2011, colitis History of Any Multi-Drug Resistant Organisms: None Reported Past Surgical History: Coronary Bypass/CABG, Heart Catheterization With Stent, Orthopedic Surgery, Pacemaker Additional Past Surgical History / Comment(s): Lt ankle - plate. sinus surgery s/t cancer. CABG-4 vessels. pacemaker/defib. [facility] upper left chest Past Anesthesia/Blood Transfusion Reactions: No Reported Reaction Additional Past Anesthesia/Blood Transfusion Reaction / Comment(s): no probles with prior blood transfusion Date of Last Stent Placement:: 2001 Type of Cardiac Device: Permanent Pacemaker, AICD Device Placement Date:: 2001 Past Psychological History: No Psychological Hx Reported Smoking Status: Former smoker Past Alcohol Use History: None Reported Additional Past Alcohol Use History / Comment(s): Patient quit smoking in 1967. He denies any medical marijuana, marijuana, street drug or alcohol use. Past Drug Use History: None Reported - Past Family History Brother(s) Additional Family Medical History / Comment(s): Patient has 3 brothers and one has history of coronary artery disease. Sister(s) Additional Family Medical History / Comment(s): Patient has one sister with history of SVT and AVR. Son(s) Additional Family Medical History / Comment(s): Patient has 2 sons and one has history of kidney stones. Patient does not have any daughters. Patient has a grandson treated for SVT. Father Family Medical History: No Reported History Additional Family Medical History / Comment(s): Father at age 72 with history of coronary artery disease and CABG Mother Family Medical History: No Reported History Additional Family Medical History / Comment(s): Mother at age 93 with history of coronary artery disease. Medications and Allergies Home Medications Medication Instructions Recorded Confirmed Type Atenolol [Tenormin] 25 mg PO QAM 08/04/14 06/18/18 History Insulin NPH Human Isophane 20 unit SQ AC-BRKFST 08/04/14 06/18/18 History [NovoLIN N] Insulin Regular, Human [NovoLIN R] See Protocol SQ AC-TID 08/04/14 06/18/18 History Levothyroxine Sodium [Synthroid] 100 mcg PO QAM 08/04/14 06/18/18 History Ranitidine HCl 150 mg PO QAM 08/04/14 06/18/18 History glipiZIDE [Glucotrol XL] 5 mg PO DAILY 08/04/14 06/18/18 History Albuterol Inhaler [Ventolin Hfa 1 - 2 puff INHALATION RT-Q4H PRN 11/05/16 History Inhaler] Albuterol Nebulized [Ventolin 2.5 mg INHALATION RT-QID 11/05/16 06/18/18 History Nebulized] Ipratropium Nebulized [Atrovent 0.05 mg INHALATION RT-QID 11/05/16 06/18/18 History Nebulized 0.2 MG/ML] Verapamil HCl [Verapamil ER] 240 mg PO QAM 11/05/16 06/18/18 History Vit C/E/Zn/Coppr/Lutein/Zeaxan 1 cap PO BID 04/22/18 06/18/18 History [Preservision Areds 2 Softgel] Polyethylene Glycol 3350 [Miralax] 17 gm PO DAILY #7 packet 04/23/18 06/18/18 Rx Tamsulosin HCl [Flomax] 0.4 mg PO AC-SUPPER #30 capsule 04/23/18 06/18/18 Rx Sodium Bicarbonate Tab 650 mg PO TID tab 05/07/18 06/18/18 Rx Amoxic-Pot Clav 500-125 mg 1 tab PO Q12HR #20 tab 06/15/18 06/18/18 Rx [Augmentin 500-125 mg] Furosemide [Lasix] 40 mg PO DAILY #0 06/15/18 06/18/18 Rx SILVER sulfADIAZINE CREAM 1 applic TOPICAL BID #50 gram 06/15/18 06/18/18 Rx [Silvadene Cream] Acetaminophen [Tylenol] 1,000 mg PO DAILY PRN 06/18/18 06/18/18 History Insulin NPH Human Isophane 12 unit SQ AC-SUPPER 06/18/18 06/18/18 History [NovoLIN N] Allergies Allergy/AdvReac Type Severity Reaction Status Date / Time esmolol [From Brevibloc] Allergy "felt like Verified 06/18/18 14:43 I was going to pass out" Surgical - Exam - General well developed, well nourished, no distress - Eyes PERRL - ENT no hearing loss - Neck no masses - Respiratory normal expansion, normal respiratory effort - Cardiovascular Rhythm: irregularly irregular - Abdomen Abdomen: soft, non tender - Genitourinary foely cath, enlarged prostate. normal penis with no external lesions - Integumentary no rash, no growths - Neurologic normal coordination, normal sensation - Musculoskeletal normal gait, normal posture - Psychiatric oriented to time, oriented to person, oriented to place, speech is normal, memory intact Assessment and Plan Assessment: Impression: urine retention with bladder stone Plan cystolithotripsy and turp
[~2018-06-24 09:51] MED LIST: AMPICILLIN 1,000 MG in SODIUM CHLORIDE 0.9% 50 ML IVPB ONE; DEXAMETHASONE SOD PHOSPHATE 10 MG/ML 1 ML VIAL IV ONE; GENTAMICIN 130 MG in SODIUM CHLORIDE 0.9% 100 ML IVPB ONE; LIDOCAINE 1% 20 ML VIAL (10MG/ML) FOR IV START INTRADERMA PRN; ONDANSETRON 4 MG/2 ML VIAL IVP ONE; fentaNYL (PF) 50 MCG/ML 20 ML VIAL IVP PRN
[2018-06-24] MEDS: LACTATED RINGERS 1,000 ML IV SCH (10:56)
[2018-06-24 11:01] LABS: Glucose,Whole Blood 119 mg/dL (75-99)
[2018-06-24] MEDS ORDERED: fentaNYL (PF) 50 MCG/ML 2 ML AMP ONE (12:42)
[2018-06-24] MEDS ORDERED: MIDAZOLAM 2 MG/2 ML VIAL ONE (12:42)
[2018-06-24] MEDS ORDERED: ACETAMINOPHEN TAB 500 MG TAB PO PRN (12:46)
[2018-06-24] MEDS ORDERED: BELLADONNA-OPIUM 16.2-60 MG 1 EACH SUPP RECTAL PRN (12:50)
[2018-06-24] MEDS ORDERED: MAG HYDROX/AL HYDROX/SIMETH 30 ML CUP PO PRN (12:50)
--- NOTE | 2018-06-24 13:35 | P.OP ---
Date of Procedure: 06/24/18 Preoperative Diagnosis: Urine retention secondary to BPH, bladder stone Postoperative Diagnosis: Same Procedure(s) Performed: Cystoscopy, cystolithotripsy (small), TURP bipolar Anesthesia: spinal Surgeon: Samuel Márquez Estimated Blood Loss (ml): 25 Pathology: other (Stone, prostate) Condition: stable Disposition: PACU Indications for Procedure: The patient is 77. He is in urine retention. He has an obstructing prostate and a bladder stone come for cystoscopy lithotripsy and TURP Description of Procedure: The patient is brought to the operating suite. He is given spinal anesthetic. He's placed lithotomy position with sterile prep and drape. Cystoscopy with a Foroblique lens and 22-Greek sheath identifies no obstructing prostate. There is a 1 cm bladder stone 5 mm bladder stone. With the 3 and a 65 laser probe and 3 W of energy the stone was broken into tiny pieces and flushed out of the bladder. I then introduced the 25-Greek sheath resectoscope sheath and Foroblique lens and direct vision obturator. With the bipolar loop I resect the prostate left side first from bladder neck to verumontanum right side second from bladder neck to verumontanum and then the redundant floor. There is numerous prostatic calculi. In the procedure the bladder is free to prostatic chips with the Ellik evacuator. Bleeding was controlled electrocautery. An 18-Greek coud- tip catheter is introduced the bladder with clear urine return. The patient returned recovery in good condition. Due to medical reasons he'll be observed in the hospital overnight." Blood loss is approximately 25 mL
[2018-06-24 14:10] LABS: Glucose,Whole Blood 148 mg/dL (75-99)
[2018-06-24] MEDS: IPRATROPIUM 0.5 MG/2.5 ML NEBU INHALATION SCH ×2 (15:20→19:51)
[2018-06-24] MEDS: ALBUTEROL NEBULIZED 2.5 MG/3 ML INHALATION SCH ×2 (15:20→19:51)
[2018-06-24 16:24] LABS: Glucose,Whole Blood 196 mg/dL (75-99)
[2018-06-24] MEDS: DEXTROSE 5%-0.45% NACL 1,000 ML IV SCH (16:29)
[2018-06-24] MEDS: SODIUM CHLORIDE 0.45% 1,000 ML IV SCH (16:30)
[2018-06-24] MEDS: SODIUM BICARBONATE TAB 650 MG TAB PO SCH ×2 (16:31→20:19)
[2018-06-24 17:09] VITALS: BMI 31.5
[2018-06-24] MEDS ORDERED: INSULIN NPH 300 UNIT/3 ML VIAL SQ SCH (17:30)
[2018-06-24] MEDS: AMOXIC-POT CLAV 500-125 MG 1 EACH TAB PO SCH (20:19)
[2018-06-24] MEDS: DOCUSATE 100 MG CAP PO SCH (20:19)
[2018-06-24 20:57] LABS: Glucose,Whole Blood 307 mg/dL (75-99)
[2018-06-25] MEDS: LACTATED RINGERS 1,000 ML IV SCH (04:52)
[2018-06-25] MEDS: DEXTROSE 5%-0.45% NACL 1,000 ML IV SCH (04:52)
[2018-06-25] MEDS: SODIUM CHLORIDE 0.45% 1,000 ML IV SCH (04:52)
[2018-06-25] MEDS ORDERED: LEVOTHYROXINE 100 MCG TAB PO SCH (06:30)
[2018-06-25 06:52] LABS: Glucose,Whole Blood 239 mg/dL (75-99)
[2018-06-25] MEDS ORDERED: INSULIN NPH 300 UNIT/3 ML VIAL SQ SCH (07:30)
--- NOTE | 2018-06-25 07:41 | P.PN ---
Subjective Progress Note Date: 06/25/18 The patient is 77. He has a chronic urine retention. He was admitted yesterday for a TURP and cystoscopy lithotripsy. He underwent this without difficulty. He was kept in the hospital overnight because of his poor general overall medical health. He did well overnight. He looks good this morning. His vital signs are stable. He'll be discharged home. His urine is clear. The catheter will come out next week. Postoperative instructions of been given. No new prescriptions will be written for. He may resume his home medications other than anticoagulation Objective - Vital Signs Vital signs: Vital Signs Temp 98.1 F 06/24/18 23:00 Pulse 61 06/24/18 23:00 Resp 16 06/25/18 00:19 BP 129/55 06/24/18 23:00 Pulse Ox 95 06/24/18 23:00 Intake & Output 06/24/18 06/25/18 06/25/18 18:59 06:59 18:59 Intake Total 825 2790 Output Total 25 1280 Balance 800 1510 Weight 102.512 kg Intake: IV 700 Intake, IV Titration 630 Amount Sodium Chloride 0.45% 1, 630 000 ml @ 75 mls/hr IV . [id number] MELISA Rx#:[id number] Oral 125 2160 Output: Urine 1280 Estimated Blood Loss 25 Other: Voiding Method Indwelling Catheter Indwelling Catheter # Voids 1 - Labs Labs: Abnormal Lab Results - Last 24 Hours (Table) 06/24/18 06/24/18 06/24/18 Range/Units 10:55 13:56 16:22 POC Glucose (mg/dL) 119 H 148 H 196 H (75-99) mg/dL 06/24/18 06/25/18 Range/Units 20:56 06:49 POC Glucose (mg/dL) 307 H 239 H (75-99) mg/dL
--- NOTE | 2018-06-25 07:45 | P.DS ---
Providers Attending physician: Samuel Márquez Primary care physician: [facility] Course: The patient was admitted the hospital overnight for a TURP because of medical conditions. He did well. His vital signs are stable. His urine is clear. He' ll be discharged home today and found the office next week for catheter removal. Patient Condition at Discharge: Good Plan - Discharge Summary Discharge Rx Participant: No New Discharge Prescriptions: No Action glipiZIDE [Glucotrol XL] 5 mg PO DAILY Atenolol [Tenormin] 25 mg PO QAM Ranitidine HCl 150 mg PO QAM Levothyroxine Sodium [Synthroid] 100 mcg PO QAM Insulin NPH Human Isophane [NovoLIN N] 20 unit SQ AC-BRKFST Insulin Regular, Human [NovoLIN R] See Protocol SQ AC-TID Verapamil HCl [Verapamil ER] 240 mg PO QAM Albuterol Inhaler [Ventolin Hfa Inhaler] 1 - 2 puff INHALATION RT-Q4H PRN PRN Reason: Shortness Of Breath Albuterol Nebulized [Ventolin Nebulized] 2.5 mg INHALATION RT-QID Ipratropium Nebulized [Atrovent Nebulized 0.2 MG/ML] 0.05 mg INHALATION RT- QID Vit C/E/Zn/Coppr/Lutein/Zeaxan [Preservision Areds 2 Softgel] 1 cap PO BID Polyethylene Glycol 3350 [Miralax] 17 gm PO DAILY #7 packet Tamsulosin HCl [Flomax] 0.4 mg PO AC-SUPPER #30 capsule Sodium Bicarbonate Tab 650 mg PO TID tab SILVER sulfADIAZINE CREAM [Silvadene Cream] 1 applic TOPICAL BID #50 gram Furosemide [Lasix] 40 mg PO DAILY #0 Amoxic-Pot Clav 500-125 mg [Augmentin 500-125 mg] 1 tab PO Q12HR #20 tab Acetaminophen [Tylenol] 1,000 mg PO DAILY PRN PRN Reason: Pain Insulin NPH Human Isophane [NovoLIN N] 12 unit SQ AC-SUPPER Discharge Medication List Atenolol [Tenormin] 25 mg PO QAM 08/04/14 [History] Insulin NPH Human Isophane [NovoLIN N] 20 unit SQ AC-BRKFST 08/04/14 [History] Insulin Regular, Human [NovoLIN R] See Protocol SQ AC-TID 08/04/14 [History] Levothyroxine Sodium [Synthroid] 100 mcg PO QAM 08/04/14 [History] Ranitidine HCl 150 mg PO QAM 08/04/14 [History] glipiZIDE [Glucotrol XL] 5 mg PO DAILY 08/04/14 [History] Albuterol Inhaler [Ventolin Hfa Inhaler] 1 - 2 puff INHALATION RT-Q4H PRN [History] Albuterol Nebulized [Ventolin Nebulized] 2.5 mg INHALATION RT-QID 11/05/16 [ History] Ipratropium Nebulized [Atrovent Nebulized 0.2 MG/ML] 0.05 mg INHALATION RT-QID 11/05/16 [History] Verapamil HCl [Verapamil ER] 240 mg PO QAM 11/05/16 [History] Vit C/E/Zn/Coppr/Lutein/Zeaxan [Preservision Areds 2 Softgel] 1 cap PO BID 04/22 [History] Polyethylene Glycol 3350 [Miralax] 17 gm PO DAILY #7 packet 04/23/18 [Rx] Tamsulosin HCl [Flomax] 0.4 mg PO AC-SUPPER #30 capsule 04/23/18 [Rx] Sodium Bicarbonate Tab 650 mg PO TID tab 05/07/18 [Rx] Amoxic-Pot Clav 500-125 mg [Augmentin 500-125 mg] 1 tab PO Q12HR #20 tab [Rx] Furosemide [Lasix] 40 mg PO DAILY #0 06/15/18 [Rx] SILVER sulfADIAZINE CREAM [Silvadene Cream] 1 applic TOPICAL BID #50 gram [Rx] Acetaminophen [Tylenol] 1,000 mg PO DAILY PRN 06/18/18 [History] Insulin NPH Human Isophane [NovoLIN N] 12 unit SQ AC-SUPPER 06/18/18 [History] Follow up Appointment(s)/Referral(s): Samuel Márquez MD [STAFF PHYSICIAN] - 06/29/18 (I believe the patient has an appointment for this today. Please call the office and check. We will remove his catheter that day.) Activity/Diet/Wound Care/Special Instructions: Home with Mcgovern Discharge Disposition: HOME SELF-CARE
[2018-06-25] MEDS: IPRATROPIUM 0.5 MG/2.5 ML NEBU INHALATION SCH ×2 (07:55→12:34)
[2018-06-25] MEDS: ALBUTEROL NEBULIZED 2.5 MG/3 ML INHALATION SCH ×2 (07:55→12:33)
[2018-06-25 08:11] VITALS: BP 134/70; RESP 14; TEMP 97.8
[2018-06-25 08:12] VITALS: PULSE 68
[2018-06-25] MEDS: AMOXIC-POT CLAV 500-125 MG 1 EACH TAB PO SCH (08:28)
[2018-06-25] MEDS: DOCUSATE 100 MG CAP PO SCH (08:29)
[2018-06-25] MEDS: SODIUM BICARBONATE TAB 650 MG TAB PO SCH (08:29)
[2018-06-25] MEDS ORDERED: FAMOTIDINE 20 MG TAB PO SCH (09:00)
[2018-06-25] MEDS ORDERED: VERAPAMIL SR 240 MG TABLET.ER PO SCH (09:00)
[2018-06-25] MEDS ORDERED: FUROSEMIDE 40 MG TAB PO SCH (09:00)
[2018-06-25] MEDS ORDERED: ATENOLOL 25 MG TAB PO SCH (09:00)
[2018-06-25] MEDS ORDERED: POLYETHYLENE GLYCOL 3350 17 GM POWD.PACK PO SCH (09:00)
[2018-06-25 11:47] LABS: Glucose,Whole Blood 304 mg/dL (75-99)
== END 2018-06-25 12:32 | disposition home or self-care (01) ==
LOC: OR 09:51 → 4SSUR 13:38 → OR 06-25 12:32
PROVIDERS: ATTEND Urology
DX: N41.1 Chronic prostatitis (principal); N40.1 Benign prostatic hyperplasia with lower urinary tract symptoms; R33.8 Other retention of urine; J44.9 Chronic obstructive pulmonary disease, unspecified; I25.5 Ischemic cardiomyopathy; N21.0 Calculus in bladder; I25.10 Atherosclerotic heart disease of native coronary artery without angina pectoris; E11.9 Type 2 diabetes mellitus without complications; Z85.72 Personal history of non-Hodgkin lymphomas; Z92.3 Personal history of irradiation; Z92.21 Personal history of antineoplastic chemotherapy; Z87.440 Personal history of urinary (tract) infections; Z95.5 Presence of coronary angioplasty implant and graft; Z95.1 Presence of aortocoronary bypass graft; Z95.810 Presence of automatic (implantable) cardiac defibrillator; Z87.891 Personal history of nicotine dependence; Z82.49 Family history of ischemic heart disease and other diseases of the circulatory system; Z79.4 Long term (current) use of insulin; Z79.890 Hormone replacement therapy; Z79.899 Other long term (current) drug therapy; Z79.2 Long term (current) use of antibiotics; Z88.8 Allergy status to other drugs, medicaments and biological substances
CPT/HCPCS: 94640 ×3; 88305; 82365; 52317; 52601; J2250; J1100; J2405; J3010; 86850; 86900; 86901

== ENCOUNTER → 2020-05-08 | Outpatient (CLI) | payer MEDICARE ==
--- NOTE | 2020-05-08 16:05 | XR ---
EXAMINATION TYPE: XR cervical spine limited DATE OF EXAM: 05/08/2020 TECHNIQUE: Frontal, lateral, swimmers, and open mouth view of the cervical spine are obtained. HISTORY: M9901 M54.5 M9903 M54.42 neck pain into her extremities. COMPARISON: None FINDINGS: The cervical spine is visualized from from C1 thru the top of T1 level, there is slight gr jacky 1 retrolisthesis C2 on C3 with more prominent grade 1 retrolisthesis C3 on C4 and C4 on C5. Mild to moderate disc space narrowing and moderate spurring at these levels. Moderate spurring and disc sp digna narrowing C5-C6 level. Moderate to severe narrowing and moderate spurring C6-C7 level. The pre-ve rtebral soft tissue appears within normal limits. The C1-C2 articulation is within normal limits on the open mouth view. Moderate to severe calcified plaque right greater than left carotid bulbs in the overlying soft tissue. Consider carotid ultrasound to further evaluate and characterize. Partial vis ualization of pacemaker and sternal wires along with mediastinal clips. IMPRESSION: As above. Multilevel spondylolisthesis and degenerative changes.
--- NOTE | 2020-05-08 16:07 | XR ---
EXAMINATION TYPE: XR lumbar spine 2 or 3V DATE OF EXAM: 05/08/2020 CLINICAL HISTORY: Back pain into both legs. TECHNIQUE: Frontal and lateral images of the lumbar spine are obtained. COMPARISON: None FINDINGS: There are 5 lumbar type vertebral bodies identified. Vertebral body heights are preserved. There is dextroconvex scoliotic curvature centered at L3 level. Spine is straightened on lateral lana ges. There is grade 1 retrolisthesis L2 on L3 and L3 on L4. Moderate disc space narrowing with endplate sclerosis and moderate anterior spurring L3-L4 level. Mi ld to moderate disc space narrowing L5-S1 level. Mild to moderate disc space narrowing with moderate anterior spurring L1-L2 level. Mild/moderate anterior spurring L2-L3 level. Moderate left lateral spurring L2-L3 and L3-L4 levels. Moderate to severe calcification of aorta exte nding into iliac and splenic arterial branch vessels in the overlying soft tissue. IMPRESSION: As above.
== END | disposition home or self-care (01) ==
LOC: RAD 15:21
PROVIDERS: ATTEND Chiropractor
DX: M99.71 Connective tissue and disc stenosis of intervertebral foramina of cervical region (principal); M99.73 Connective tissue and disc stenosis of intervertebral foramina of lumbar region; M99.74 Connective tissue and disc stenosis of intervertebral foramina of sacral region; M43.12 Spondylolisthesis, cervical region; M43.16 Spondylolisthesis, lumbar region; M47.812 Spondylosis without myelopathy or radiculopathy, cervical region; M41.86 Other forms of scoliosis, lumbar region; M53.86 Other specified dorsopathies, lumbar region; Z95.0 Presence of cardiac pacemaker
CPT/HCPCS: 72040; 72100

== ENCOUNTER 2020-07-03 12:39 | Observation (INO) | payer MEDICARE ==
[2020-07-03] MEDS ORDERED: METOPROLOL TARTRATE 5 MG/5 ML VIAL IVP STA (13:06)
[2020-07-03] MEDS ORDERED: SODIUM CHLORIDE 0.9% 500 ML 500 ML IV STA (13:06)
[2020-07-03] MEDS ORDERED: METOPROLOL SUCCINATE (ER) 25 MG TAB.ER.24H PO STA (13:08)
--- NOTE | 2020-07-03 13:23 | ED ---
General Adult HPI - General Chief complaint: Arrhythmia/Palpitations Stated complaint: palpitations Time Seen by Provider: 07/03/20 12:45 Source: patient, EMS, RN notes reviewed, old records reviewed Mode of arrival: EMS Limitations: no limitations - History of Present Illness Initial comments: This is a 79-year-old male presents emergency Department stating that for over a month he has had some fast heart rates. Patient states she was recently put on Toprol-XL but that is not seem to help. Patient states he had 2 episodes today where he was tachycardic at about 130 beats minute each lasting about half an hour. Patient states when it occurs he does feel a little lightheaded and had a little bit of chest pain which radiated into his left arm. Patient states soon after EMS arrived it went away but then while he was there and came back and so he wanted to be brought to the emergency department. Patient states currently he is having no symptoms. Patient denies any recent fever chills or cough. Patient denies any shortness of breath or difficulty breathing when these episodes occur. Patient denies any nausea vomiting. Patient denies any abdominal pain. Patient denies any increased swelling to the legs or calf tenderness. - Related Data Home Medications Medication Instructions Recorded Confirmed Insulin NPH Human Isophane 18 unit SQ AC-BRKFST 08/04/14 07/03/20 [NovoLIN N] Insulin Regular, Human [NovoLIN R] See Protocol SQ BID 08/04/14 07/03/20 Levothyroxine Sodium [Synthroid] 100 mcg PO QAM 08/04/14 07/03/20 Ranitidine HCl 150 mg PO QAM 08/04/14 07/03/20 glipiZIDE [Glucotrol XL] 5 mg PO DAILY 08/04/14 07/03/20 Albuterol Nebulized [Ventolin 2.5 mg INHALATION RT-QID 11/05/16 07/03/20 Nebulized] Ipratropium Nebulized [Atrovent 0.05 mg INHALATION RT-QID 11/05/16 07/03/20 Nebulized 0.2 MG/ML] Verapamil HCl [Verapamil ER] 240 mg PO QAM 11/05/16 07/03/20 Vit C/E/Zn/Coppr/Lutein/Zeaxan 1 cap PO DAILY 04/22/18 07/03/20 [Preservision Areds 2 Softgel] Insulin NPH Human Isophane See Protocol SQ AC-SUPPER 06/18/18 07/03/20 [NovoLIN N] Albuterol Inhaler [Ventolin Hfa 1 puff INHALATION RT-QID 07/03/20 07/03/20 Inhaler] Budesonide [Pulmicort] 0.5 mg INHALATION RT-BID 07/03/20 07/03/20 Ferrous Sulfate [Feosol] 325 mg PO DAILY 07/03/20 07/03/20 Furosemide [Lasix] 120 mg PO DAILY 07/03/20 07/03/20 Metoprolol Succinate (ER) [Toprol 50 mg PO DAILY 07/03/20 07/03/20 Xl] lisinopriL [Zestril] 5 mg PO DAILY 07/03/20 07/03/20 Allergies Allergy/AdvReac Type Severity Reaction Status Date / Time esmolol [From Brevibloc] Allergy "felt like Verified 07/03/20 14:27 I was going to pass out" Review of Systems ROS Statement: Those systems with pertinent positive or pertinent negative responses have been documented in the HPI. ROS Other: All systems not noted in ROS Statement are negative. Past Medical History Past Medical History: Asthma, Coronary Artery Disease (CAD), Cancer, Diabetes Mellitus, Hyperlipidemia, Hypertension, Prostate Disorder, Thyroid Disorder Additional Past Medical History / Comment(s): recent admission "unable to urinate",bladder stones,and urinary infection and cellulitis kailyn legs,lymphoma, chemotherapy, radiation,- 06/2011, colitis History of Any Multi-Drug Resistant Organisms: None Reported Past Surgical History: Coronary Bypass/CABG, Heart Catheterization With Stent, Orthopedic Surgery, Pacemaker Additional Past Surgical History / Comment(s): Lt ankle - plate. sinus surgery s/t cancer. CABG-4 vessels. pacemaker/defib. [facility] upper left chest Past Anesthesia/Blood Transfusion Reactions: No Reported Reaction Additional Past Anesthesia/Blood Transfusion Reaction / Comment(s): no probles w ith prior blood transfusion Date of Last Stent Placement:: 2001 Type of Cardiac Device: Permanent Pacemaker, AICD Device Placement Date:: 2001 Past Psychological History: No Psychological Hx Reported Smoking Status: Former smoker Past Alcohol Use History: None Reported Past Drug Use History: None Reported - Past Family History Brother(s) Additional Family Medical History / Comment(s): Patient has 3 brothers and one has history of coronary artery disease. Sister(s) Additional Family Medical History / Comment(s): Patient has one sister with history of SVT and AVR. Son(s) Additional Family Medical History / Comment(s): Patient has 2 sons and one has history of kidney stones. Patient does not have any daughters. Patient has a grandson treated for SVT. Father Family Medical History: No Reported History Additional Family Medical History / Comment(s): Father at age 72 with history of coronary artery disease and CABG Mother Family Medical History: No Reported History Additional Family Medical History / Comment(s): Mother at age 93 with history of coronary artery disease. General Exam - General Exam Comments Initial Comments: GENERAL: Patient is well-developed and well-nourished. Patient is nontoxic and well- hydrated and is in no acute distress. ENT: Neck is soft and supple. No significant lymphadenopathy is noted. Oropharynx is clear. Moist mucous membranes. Neck has full range of motion without eliciting any pain. EYES: The sclera were anicteric and conjunctiva were pink and moist. Extraocular movements were intact and pupils were equal round and reactive to light. Eyelids were unremarkable. PULMONARY: Unlabored respirations. Good breath sounds bilaterally. No audible rales rhonchi or wheezing was noted. CARDIOVASCULAR: There is a regular rate and rhythm without any murmurs gallops or rubs. ABDOMEN: Soft and nontender with normal bowel sounds. SKIN: Skin is clear with no lesions or rashes and otherwise unremarkable. NEUROLOGIC: Patient is alert and oriented x3. Cranial nerves II through XII are 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. Motor and sensory are also intact. Normal speech, volume and content. Symmetrical smile. MUSCULOSKELETAL: Normal extremities with adequate strength and full range of motion. No calf tenderness. Edema bilaterally patient states it's normal LYMPHATICS: No significant lymphadenopathy is noted PSYCHIATRIC: Normal psychiatric evaluation. Limitations: no limitations Course Vital Signs 07/03/20 07/03/20 12:47 13:50 Temperature 97 F L Pulse Rate 71 66 Respiratory 18 18 Rate Blood Pressure 155/78 160/85 O2 Sat by Pulse 99 96 Oximetry Medical Decision Making - Medical Decision Making EKG shows a junctional rhythm at 60 bpm TX interval 182 QRS is 114 QT interval 4:30 QTC is 457. EKG shows no ST segment elevation or depression. Patient's chest x-ray shows no acute abnormality. I spoke with Dr. Jay Thompson stated that the patient to be admitted her I wrote admitting orders I consult cardiology. - Lab Data Result diagrams: 07/03/20 13:43 07/03/20 13:43 Lab Results 07/03/20 07/03/20 07/03/20 Range/Units 13:43 13:43 13:43 WBC 7.0 (3.8-10.6) k/uL RBC 3.41 L (4.30-5.90) m/uL Hgb 10.9 L (13.0-17.5) gm/dL Hct 32.2 L (39.0-53.0) % MCV 94.6 (80.0-100.0) fL MCH 32.0 (25.0-35.0) pg MCHC 33.8 (31.0-37.0) g/dL RDW 13.9 (11.5-15.5) % Plt Count 146 L (150-450) k/uL MPV 6.9 Neutrophils % 66 % Lymphocytes % 23 % Monocytes % 5 % Eosinophils % 4 % Basophils % 1 % Neutrophils # 4.6 (1.3-7.7) k/uL Lymphocytes # 1.6 (1.0-4.8) k/uL Monocytes # 0.4 (0-1.0) k/uL Eosinophils # 0.3 (0-0.7) k/uL Basophils # 0.0 (0-0.2) k/uL PT 9.7 (9.0-12.0) sec INR 0.9 (<1.2) APTT 23.8 (22.0-30.0) sec Sodium 138 (137-145) mmol/L Potassium 4.0 (3.5-5.1) mmol/L Chloride 106 (98-107) mmol/L Carbon Dioxide 21 L (22-30) mmol/L Anion Gap 11 mmol/L BUN 33 H (9-20) mg/dL Creatinine 1.50 H (0.66-1.25) mg/dL Est GFR (CKD-EPI)AfAm 51 (>60 ml/min/1.73 sqM) Est GFR (CKD-EPI)NonAf 44 (>60 ml/min/1.73 sqM) Glucose 269 H (74-99) mg/dL Calcium 8.9 (8.4-10.2) mg/dL Magnesium 2.1 (1.6-2.3) mg/dL Total Bilirubin 0.3 (0.2-1.3) mg/dL AST 29 (17-59) U/L ALT 16 (4-49) U/L Alkaline Phosphatase 95 (38-126) U/L Troponin I (0.000-0.034) ng/mL Total Protein 7.1 (6.3-8.2) g/dL Albumin 3.8 (3.5-5.0) g/dL 07/03/20 Range/Units 13:43 WBC (3.8-10.6) k/uL RBC (4.30-5.90) m/uL Hgb (13.0-17.5) gm/dL Hct (39.0-53.0) % MCV (80.0-100.0) fL MCH (25.0-35.0) pg MCHC (31.0-37.0) g/dL RDW (11.5-15.5) % Plt Count (150-450) k/uL MPV Neutrophils % % Lymphocytes % % Monocytes % % Eosinophils % % Basophils % % Neutrophils # (1.3-7.7) k/uL Lymphocytes # (1.0-4.8) k/uL Monocytes # (0-1.0) k/uL Eosinophils # (0-0.7) k/uL Basophils # (0-0.2) k/uL PT (9.0-12.0) sec INR (<1.2) APTT (22.0-30.0) sec Sodium (137-145) mmol/L Potassium (3.5-5.1) mmol/L Chloride (98-107) mmol/L Carbon Dioxide (22-30) mmol/L Anion Gap mmol/L BUN (9-20) mg/dL Creatinine (0.66-1.25) mg/dL Est GFR (CKD-EPI)AfAm (>60 ml/min/1.73 sqM) Est GFR (CKD-EPI)NonAf (>60 ml/min/1.73 sqM) Glucose (74-99) mg/dL Calcium (8.4-10.2) mg/dL Magnesium (1.6-2.3) mg/dL Total Bilirubin (0.2-1.3) mg/dL AST (17-59) U/L ALT (4-49) U/L Alkaline Phosphatase (38-126) U/L Troponin I <0.012 (0.000-0.034) ng/mL Total Protein (6.3-8.2) g/dL Albumin (3.5-5.0) g/dL Disposition Clinical Impression: Tachycardia, Chest pain Disposition: ADMITTED IP TO THIS HOSP Referrals: Samuel Venegas MD [Primary Care Provider] - 1-2 days Time of Disposition: 14:39
[2020-07-03 13:49] LABS: Basophils % (A) 1 %; Eosinophils # (A) 0.3 k/uL (0-0.7); Eosinophils % (A) 4 %; HCT 32.2 % (39.0-53.0); HGB 10.9 gm/dL (13.0-17.5); Lymphocytes # (A) 1.6 k/uL (1.0-4.8); Lymphocytes % (A) 23 %; MCHC 33.8 g/dL (31.0-37.0); MCV 94.6 fL (80.0-100.0); Mean Platelet Volume 6.9; Monocytes # (A) 0.4 k/uL (0-1.0); Monocytes % (A) 5 %; Neutrophils # (A) 4.6 k/uL (1.3-7.7); Neutrophils % (A) 66 %; Platelet Count 146 k/uL (150-450); RBC 3.41 m/uL (4.30-5.90); RDW 13.9 % (11.5-15.5)
[2020-07-03 14:02] LABS: Albumin 3.8 g/dL (3.5-5.0); Calcium 8.9 mg/dL (8.4-10.2); Magnesium 2.1 mg/dL (1.6-2.3); Total Bilirubin 0.3 mg/dL (0.2-1.3); Total Protein 7.1 g/dL (6.3-8.2)
--- NOTE | 2020-07-03 14:06 | XR ---
EXAMINATION TYPE: XR chest 2V DATE OF EXAM: 07/03/2020 COMPARISON: Chest x-ray June 12, 2018. HISTORY: Palpitations and dysrhythmia. TECHNIQUE: Frontal and lateral views of the chest are obtained. FINDINGS: Overlying sternal wires and mediastinal clips. There is chronic parenchymal change without suspicious new focal air space opacity, pleural effusion, or pneumothorax seen. Stable right basilar opacity favoring scarring and/or atelectasis. The cardiac silhouette size is upper limits of normal with multi lead pacemaker/defibrillator and atherosclerotic ectatic thoracic aorta redemonstrated. Un derlying scoliosis centered lower thoracic spine. IMPRESSION: Chronic changes without new acute pulmonary process.
[2020-07-03 14:10] LABS: INR 0.9 (<1.2); Partial Thromboplastin Time 23.8 sec (22.0-30.0); Prothrombin Time 9.7 sec (9.0-12.0)
[2020-07-03] MEDS ORDERED: NITROGLYCERIN SL TABS 0.4 MG TAB SUBLINGUAL PRN (14:39)
[2020-07-03] MEDS ORDERED: ASPIRIN 81 MG PO STA (14:39)
[2020-07-03 18:06] LABS: Glucose,Whole Blood 218 mg/dL (75-99)
[2020-07-03] MEDS ORDERED: HEPARIN SODIUM,PORCINE 5,000 UNIT/ML 1 ML VIAL IV ONE (18:14)
[2020-07-03] MEDS ORDERED: HEPARIN SODIUM,PORCINE 5,000 UNIT/ML 1 ML VIAL IV PRN (18:14)
[2020-07-03] MEDS: FERROUS SULFATE 325 MG TAB PO SCH (18:45)
[2020-07-03] MEDS: FUROSEMIDE 40 MG TAB PO SCH (18:45)
[2020-07-03] MEDS: VERAPAMIL SR 240 MG TABLET.ER PO SCH (18:46)
[2020-07-03] MEDS: NITROGLYCERIN OINT 1 INCH/GM PACKET TOPICAL SCH (18:50)
[2020-07-03] MEDS: lisinopriL 5 MG TAB PO SCH (18:50)
[2020-07-03] MEDS: HEPARIN SOD,PORK IN 0.45% NACL 25,000 UNIT in 0.45% NACL 1 250ML.BAG IV SCH (18:57)
--- NOTE | 2020-07-03 20:06 | P.HPIM ---
History of Present Illness H&P Date: 07/03/20 Chief Complaint: Palpitations This is a 79-year-old pleasant gentleman who is a patient of Dr. Tay Rice. With past medical history significant for asthma, COPD, diabetes, hypertension, hypothyroidism, history of lymphoma status post chemotherapy and radiation, history of colitis, history of coronary artery disease status post CABG 2013, history of sick sinus syndrome status post pacemaker in 2001. She he presented to emergency room secondary to palpitations off and on for the past 1 month, patient was recently put on Toprol, which is not helping. Patient was having another symptoms today, for which EMS has come in, heart rate was in the 140s, and lasting for approximately one hour. Patient felt a little bit of chest discomfort, lightheadedness, and pain radiated to the left arm. Patient arm refused to go to the EMS, he was given another dose of beta ivy that time, and there was controlled temporarily of the chest palpitations. However as soon as the EMS went out, while packing her bags patient had another episode of palpitations, in the heart rate of 130s, with subsequent emergency room visit, secondary to could be junctional rhythm with uncontrolled rate in the 130s. Emergency room, the ER doctor was not able to identify P-wave, heart rate in the 60s. Patient is on albuterol, verapamil 240, and metoprolol 50 mg daily. Consult with cardiology, secondary to tachycardia with uncontrolled heart rate and rate related angina troponin is 0.012 creatinine 1.5 on admission 2.1 no TSH available for review. We've increased her metoprolol to 50 mg twice a day, Diltiazem 240 mg daily cardiology is on consult \\ Review of Systems Constitutional: Reports as per HPI, Denies anorexia, Denies chills, Denies chronic headaches, Denies chronic pain, Denies daytime sleepiness, Denies fatigue, Denies fever, Denies lethargy, Denies malaise, Denies night sweats, Denies poor appetite, Denies sweats, Denies weakness, Denies weight gain, Denies weight loss Ears, nose, mouth and throat: Reports as per HPI, Denies ant. neck pain, Denies bleeding gums, Denies dental pain, Denies dysphagia, Denies epistaxis, Denies headache, Denies hoarseness, Denies mouth pain, Denies nasal congestion, Denies nasal discharge, Denies neck fullness/pressure, Denies neck lump, Denies nose p ain, Denies odynophagia, Denies post-nasal drip, Denies sinus pain, Denies sinus pressure, Denies swelling in mouth, Denies swelling in throat, Denies sore throat, Denies vertigo, Denies voice changes Cardiovascular: Reports chest pain, Reports palpitations Respiratory: Reports as per HPI, Denies congestion, Denies cough, Denies cough with sputum, Denies dyspnea, Denies excessive sputum, Denies hemoptysis, Denies home oxygen, Denies pain, Denies pain on inspiration, Denies pleurisy, Denies respiratory infections, Denies sleep apnea, Denies snoring, Denies wheezing Gastrointestinal: Reports as per HPI, Denies abdominal pain, Denies belching, Denies bloating, Denies BRBPR, Denies change in bowel habits, Denies coffee ground emesis, Denies constipation, Denies diarrhea, Denies dyspepsia, Denies early satiety, Denies excessive gas, Denies heartburn, Denies hematemesis, Denies hematochezia, Denies indigestion, Denies jaundice, Denies lactose intolerance, Denies loss of appetite, Denies melena, Denies nausea, Denies vomiting Genitourinary: Reports as per HPI, Denies decreased libido, Denies difficulties fathering child, Denies discharge, Denies dysuria, Denies erectile dysfunction, Denies flank pain, Denies genital pain, Denies genital sores, Denies hematuria, Denies impotence, Denies incontinence, Denies kidney stones, Denies nocturia, Denies polyuria, Denies testicular lump, Denies testicular pain, Denies urinary frequency, Denies urinary hesitancy, Denies urinary retention Musculoskeletal: Reports as per HPI, Denies arm numbness/tingling, Denies atroph y, Denies fractures, Denies frequent falls, Denies gait dysfunction, Denies hot joints, Denies leg numbness/tingling, Denies limitation of motion, Denies loss of height, Denies low back pain, Denies morning stiffness, Denies muscle cramps, Denies muscle weakness, Denies myalgias, Denies neck pain, Denies neck stiffness, Denies prior amputations, Denies redness of joints, Denies shooting arm pain, Denies shooting leg pain Integumentary: Reports as per HPI Neurological: Reports as per HPI, Denies aphasia, Denies ataxia, Denies balance difficulties, Denies burning pain, Denies change in mentation, Denies change in smell/taste, Denies change in speech, Denies confusion, Denies convulsions, Denies double vision, Denies gait dysfunction, Denies head injury, Denies headaches, Denies hearing difficulties, Denies lack of coordination, Denies loss of vision, Denies memory loss, Denies migraines, Denies motor disturbance, Denies numbness, Denies paralysis, Denies paresthesias, Denies seizures, Denies sensory deficit, Denies spasticity, Denies syncope, Denies tic, Denies tingling, Denies transient paralysis, Denies tremors, Denies vertigo, Denies weakness, Denies visual changes Psychiatric: Reports as per HPI Endocrine: Reports as per HPI, Denies cold intolerance, Denies deepening of the voice, Denies excessive sweating, Denies excessive thirst, Denies fatigue, Denies flushing, Denies heat intolerance, Denies high blood sugars, Denies increase in ring/shoe/hat size, Denies low blood sugars, Denies nocturia, Denies palpitations, Denies polydipsia, Denies polyphagia, Denies polyuria, Denies proptosis, Denies recent glucocorticoid use, Denies thyroid mass, Denies weight change Hematologic/Lymphatic: Reports as per HPI Allergic/Immunologic: Reports as per HPI Past Medical History Past Medical History: Asthma, Coronary Artery Disease (CAD), Cancer, Diabetes Mellitus, Hyperlipidemia, Hypertension, Thyroid Disorder Additional Past Medical History / Comment(s): ,bladder stones,and urinary infection and cellulitis kailyn legs,lymphoma, chemotherapy, radiation,- 06/2011, colitis History of Any Multi-Drug Resistant Organisms: None Reported Past Surgical History: AICD, Coronary Bypass/CABG, Heart Catheterization With Stent, Orthopedic Surgery, Pacemaker Additional Past Surgical History / Comment(s): Lt ankle - plate. sinus surgery s/t cancer. CABG-4 vessels. pacemaker/defib. [facility] upper left chest Past Anesthesia/Blood Transfusion Reactions: No Reported Reaction Additional Past Anesthesia/Blood Transfusion Reaction / Comment(s): no probles with prior blood transfusion Date of Last Stent Placement:: 2001 Type of Cardiac Device: Permanent Pacemaker, AICD Device Placement Date:: 2001 Past Psychological History: No Psychological Hx Reported Smoking Status: Former smoker Past Alcohol Use History: None Reported Additional Past Alcohol Use History / Comment(s): Patient quit smoking in 1967. He denies any medical marijuana, marijuana, street drug or alcohol use. Past Drug Use History: None Reported - Past Family History Brother(s) Additional Family Medical History / Comment(s): Patient has 3 brothers and one has history of coronary artery disease. Sister(s) Additional Family Medical History / Comment(s): Patient has one sister with history of SVT and AVR. Son(s) Additional Family Medical History / Comment(s): Patient has 2 sons and one has history of kidney stones. Patient does not have any daughters. Patient has a grandson treated for SVT. Father Family Medical History: No Reported History Additional Family Medical History / Comment(s): Father at age 72 with history of coronary artery disease and CABG Mother Family Medical History: No Reported History Additional Family Medical History / Comment(s): Mother at age 93 with history of coronary artery disease. Medications and Allergies Home Medications Medication Instructions Recorded Confirmed Type Insulin NPH Human Isophane 18 unit SQ AC-BRKFST 08/04/14 07/03/20 History [NovoLIN N] Insulin Regular, Human [NovoLIN R] See Protocol SQ BID 08/04/14 07/03/20 History Levothyroxine Sodium [Synthroid] 100 mcg PO QAM 08/04/14 07/03/20 History Ranitidine HCl 150 mg PO QAM 08/04/14 07/03/20 History glipiZIDE [Glucotrol XL] 5 mg PO DAILY 08/04/14 07/03/20 History Albuterol Nebulized [Ventolin 2.5 mg INHALATION RT-QID 11/05/16 07/03/20 History Nebulized] Ipratropium Nebulized [Atrovent 0.05 mg INHALATION RT-QID 11/05/16 07/03/20 History Nebulized 0.2 MG/ML] Verapamil HCl [Verapamil ER] 240 mg PO QAM 11/05/16 07/03/20 History Vit C/E/Zn/Coppr/Lutein/Zeaxan 1 cap PO DAILY 04/22/18 07/03/20 History [Preservision Areds 2 Softgel] Insulin NPH Human Isophane See Protocol SQ AC-SUPPER 06/18/18 07/03/20 History [NovoLIN N] Albuterol Inhaler [Ventolin Hfa 1 puff INHALATION RT-QID 07/03/20 07/03/20 History Inhaler] Budesonide [Pulmicort] 0.5 mg INHALATION RT-BID 07/03/20 07/03/20 History Ferrous Sulfate [Feosol] 325 mg PO DAILY 07/03/20 07/03/20 History Furosemide [Lasix] 120 mg PO DAILY 07/03/20 07/03/20 History Metoprolol Succinate (ER) [Toprol 50 mg PO DAILY 07/03/20 07/03/20 History Xl] lisinopriL [Zestril] 5 mg PO DAILY 07/03/20 07/03/20 History Allergies Allergy/AdvReac Type Severity Reaction Status Date / Time esmolol [From Brevibloc] Allergy "felt like Verified 07/03/20 14:27 I was going to pass out" Physical Exam Vitals: Vital Signs Temp Pulse Pulse Resp BP BP Pulse Ox 07/03/20 16:24 97.4 F L 70 16 162/72 99 07/03/20 15:46 97 F L 68 18 152/73 99 07/03/20 14:00 68 18 152/73 99 07/03/20 13:50 66 18 160/85 96 07/03/20 12:47 97 F L 71 18 155/78 99 Intake and Output 07/03/20 07/03/20 07/03/20 06:59 14:59 22:59 Output Total 600 Balance -600 Output: Urine 600 Other: Voiding Method Urinal Weight 100.698 kg 100.698 kg - Constitutional General appearance: cooperative, no acute distress - EENT Eyes: EOMI, PERRLA ENT: NA/AT, normal oropharynx - Neck Neck: normal ROM - Respiratory Respiratory: bilateral: CTA, negative: diminished, dullness - Cardiovascular Rhythm: regular Heart sounds: normal: S1, S2 - Gastrointestinal General gastrointestinal: normal bowel sounds, soft - Integumentary Integumentary: decreased turgor, normal - Neurologic Neurologic: CNII-XII intact, focal deficits (None) - Musculoskeletal Musculoskeletal: gait normal, strength equal bilaterally - Psychiatric Psychiatric: A&O x's 3, appropriate affect, intact judgment & insight Results CBC & Chem 7: 07/03/20 13:43 07/03/20 13:43 Labs: Abnormal Lab Results - Last 24 Hours (Table) 07/03/20 07/03/20 07/03/20 Range/Units 13:43 13:43 16:39 RBC 3.41 L (4.30-5.90) m/uL Hgb 10.9 L (13.0-17.5) gm/dL Hct 32.2 L (39.0-53.0) % Plt Count 146 L (150-450) k/uL Carbon Dioxide 21 L (22-30) mmol/L BUN 33 H (9-20) mg/dL Creatinine 1.50 H (0.66-1.25) mg/dL Glucose 269 H (74-99) mg/dL POC Glucose (mg/dL) (75-99) mg/dL Troponin I 0.065 H* (0.000-0.034) ng/mL 07/03/20 Range/Units 18:03 RBC (4.30-5.90) m/uL Hgb (13.0-17.5) gm/dL Hct (39.0-53.0) % Plt Count (150-450) k/uL Carbon Dioxide (22-30) mmol/L BUN (9-20) mg/dL Creatinine (0.66-1.25) mg/dL Glucose (74-99) mg/dL POC Glucose (mg/dL) 218 H (75-99) mg/dL Troponin I (0.000-0.034) ng/mL Laboratory Results WBC 7.0 k/uL (3.8-10.6) 07/03/20 13:43 RBC 3.41 m/uL (4.30-5.90) L 07/03/20 13:43 Hgb 10.9 gm/dL (13.0-17.5) L 07/03/20 13:43 Hct 32.2 % (39.0-53.0) L 07/03/20 13:43 MCV 94.6 fL (80.0-100.0) 07/03/20 13:43 MCH 32.0 pg (25.0-35.0) 07/03/20 13:43 MCHC 33.8 g/dL (31.0-37.0) 07/03/20 13:43 RDW 13.9 % (11.5-15.5) 07/03/20 13:43 Plt Count 146 k/uL (150-450) L 07/03/20 13:43 MPV 6.9 07/03/20 13:43 Neutrophils % 66 % 07/03/20 13:43 Lymphocytes % 23 % 07/03/20 13:43 Monocytes % 5 % 07/03/20 13:43 Eosinophils % 4 % 07/03/20 13:43 Basophils % 1 % 07/03/20 13:43 Neutrophils # 4.6 k/uL (1.3-7.7) 07/03/20 13:43 Lymphocytes # 1.6 k/uL (1.0-4.8) 07/03/20 13:43 Monocytes # 0.4 k/uL (0-1.0) 07/03/20 13:43 Eosinophils # 0.3 k/uL (0-0.7) 07/03/20 13:43 Basophils # 0.0 k/uL (0-0.2) 07/03/20 13:43 PT 9.7 sec (9.0-12.0) 07/03/20 13:43 INR 0.9 (<1.2) 07/03/20 13:43 APTT 23.8 sec (22.0-30.0) 07/03/20 13:43 Sodium 138 mmol/L (137-145) 07/03/20 13:43 Potassium 4.0 mmol/L (3.5-5.1) 07/03/20 13:43 Chloride 106 mmol/L (98-107) 07/03/20 13:43 Carbon Dioxide 21 mmol/L (22-30) L 07/03/20 13:43 Anion Gap 11 mmol/L 07/03/20 13:43 BUN 33 mg/dL (9-20) H 07/03/20 13:43 Creatinine 1.50 mg/dL (0.66-1.25) H 07/03/20 13:43 Est GFR (CKD-EPI)AfAm 51 (>60 ml/min/1.73 sqM) 07/03/20 13:43 Est GFR (CKD-EPI)NonAf 44 (>60 ml/min/1.73 sqM) 07/03/20 13:43 Glucose 269 mg/dL (74-99) H 07/03/20 13:43 POC Glucose (mg/dL) 218 mg/dL (75-99) H 07/03/20 18:03 POC Glu Fur Blender ID Karlene Cobb 07/03/20 18:03 Calcium 8.9 mg/dL (8.4-10.2) 07/03/20 13:43 Magnesium 2.1 mg/dL (1.6-2.3) 07/03/20 13:43 Total Bilirubin 0.3 mg/dL (0.2-1.3) 07/03/20 13:43 AST 29 U/L (17-59) 07/03/20 13:43 ALT 16 U/L (4-49) 07/03/20 13:43 Alkaline Phosphatase 95 U/L (38-126) 07/03/20 13:43 Troponin I 0.065 ng/mL (0.000-0.034) H* 07/03/20 16:39 Total Protein 7.1 g/dL (6.3-8.2) 07/03/20 13:43 Albumin 3.8 g/dL (3.5-5.0) 07/03/20 13:43 Coronavirus (PCR) Not Detected (Not Detectd) 07/03/20 14:59 Thrombosis Risk Factor Assmnt - Choose All That Apply Any of the Below Risk Factors Present?: Yes Each Factor Represents 1 point: Medical pt on bed rest, Obesity (BMI >25) Each Risk Factor Represents 3 Points: Age 75 years or older Thrombosis Risk Factor Assessment Total Risk Factor Score: 5 Thrombosis Risk Factor Assessment Level: High Risk Assessment and Plan Plan: 1. 1. Junctional rhythm, with sinus tachycardia, sick sinus syndrome is contemplated, patient is on metoprolol 50 mg daily, which was increased to 50 mg twice a day, with diltiazem 240 mg daily cardiology is to see the patient TSH will be checke EKG shows rate undetermined, incomplete left bundle branch block, heart rate 68 . Regimen was intervened by EMS, prior to ER transport. Patient was junctional rhythm on ER presentation. Troponins to be monitored might need pacemaker 2. Rate related chest pain, suspect unstable angina, troponin would be obtained, echocardiogram nitro when necessary patient is on aspirin 325 mg daily nitro when necessary 3. Chronic diastolic CHF, on Lasix 120 mg daily 3. BPH. Flomax 0.4 mg daily 3. Hypertension. Continue Tenormin 25 mg daily, continue Lasix 40 mg by mouth twice a day, verapamil 240 mg by mouth daily 4. Diabetes mellitus. Continue glipizide 2.5 mg by mouth twice a day, continue Humulin 18 units subcu before meals breakfast, 12 units subcu before meals supper. Continue insulin sliding scale. Monitor glucose before meals and at bedtime. 5. COPD. Continue DuoNeb as needed 6. Hypothyroid. Levothyroxine 100 g by mouth daily TSH 7. Constipation MiraLAX 17 g by mouth daily 8. GI prophylaxis. Pepcid 20 mg by mouth 9. DVT prophylaxis. Heparin 5000 units subcu every 12h. Discharge plan: Discharge home possibly 2 days
[2020-07-03] MEDS: BUDESONIDE 0.5 MG/2 ML NEBU INHALATION SCH (20:37)
[2020-07-03] MEDS: IPRATROPIUM 0.5 MG/2.5 ML NEBU INHALATION SCH (20:37)
[2020-07-03] MEDS: ALBUTEROL NEBULIZED 2.5 MG/3 ML INHALATION SCH (20:37)
[2020-07-03] MEDS: INSULIN NPH 300 UNIT/3 ML VIAL SQ SCH (21:24)
[2020-07-03] MEDS: INSULIN ASPART (NovoLOG) 100 UNIT/ML VIAL SQ SCH (21:25)
[2020-07-03] MEDS: METOPROLOL TARTRATE 50 MG TAB PO SCH (21:25)
[2020-07-03 21:33] LABS: Glucose,Whole Blood 204 mg/dL (75-99)
[2020-07-04] MEDS: NITROGLYCERIN OINT 1 INCH/GM PACKET TOPICAL SCH ×2 (01:52→05:42)
[2020-07-04 03:45] LABS: Glucose,Whole Blood 131 mg/dL (75-99)
[2020-07-04] MEDS: LEVOTHYROXINE 100 MCG TAB PO SCH (05:42)
[2020-07-04 06:23] LABS: Glucose,Whole Blood 142 mg/dL (75-99)
[2020-07-04] MEDS: BUDESONIDE 0.5 MG/2 ML NEBU INHALATION SCH ×2 (07:14→19:34)
[2020-07-04] MEDS: IPRATROPIUM 0.5 MG/2.5 ML NEBU INHALATION SCH (07:14)
[2020-07-04] MEDS: ALBUTEROL NEBULIZED 2.5 MG/3 ML INHALATION SCH (07:14)
[2020-07-04] MEDS ORDERED: INSULIN REGULAR 100 UNIT/ML VIAL SQ SCH (07:30)
[2020-07-04] MEDS: IPRATROPIUM-ALBUTEROL 3 ML NEB INHALATION SCH ×4 (07:31→19:34)
[2020-07-04] MEDS: VERAPAMIL SR 240 MG TABLET.ER PO SCH (08:04)
[2020-07-04] MEDS: lisinopriL 5 MG TAB PO SCH (08:04)
[2020-07-04] MEDS: FERROUS SULFATE 325 MG TAB PO SCH (08:04)
[2020-07-04] MEDS: METOPROLOL TARTRATE 50 MG TAB PO SCH ×2 (08:04→20:53)
[2020-07-04] MEDS: FAMOTIDINE 20 MG TAB PO SCH (08:04)
[2020-07-04] MEDS: VIT A,C & E-LUTEIN-MINERALS 1 EACH TAB PO SCH (08:04)
[2020-07-04] MEDS: INSULIN NPH 300 UNIT/3 ML VIAL SQ SCH ×2 (08:04→20:49)
[2020-07-04] MEDS: FUROSEMIDE 40 MG TAB PO SCH (08:04)
[2020-07-04] MEDS: INSULIN ASPART (NovoLOG) 100 UNIT/ML VIAL SQ SCH ×4 (08:05→20:53)
[2020-07-04] MEDS: ATORVASTATIN 80 MG TAB PO SCH (08:08)
[2020-07-04] MEDS: ASPIRIN 81 MG PO SCH (08:08)
[2020-07-04] MEDS ORDERED: ASPIRIN 325 MG TAB PO SCH (09:00)
[2020-07-04 11:03] LABS: Basophils # (A) 0.04 X 10*3/uL (0.00-0.10); Basophils % (A) 0.7 %; Eosinophils # (A) 0.31 X 10*3/uL (0.04-0.35); Eosinophils % (A) 5.2 %; HCT 30.1 % (39.6-50.0); HGB 9.6 g/dL (13.0-17.0); Lymphocytes # (A) 1.94 X 10*3/uL (0.90-5.00); Lymphocytes % (A) 32.3 %; MCH 30.2 pg (27.0-32.0); MCHC 31.9 g/dL (32.0-37.0); MCV 94.7 fL (80.0-97.0); Mean Platelet Volume 10.4 fL (9.5-12.2); Monocytes # (A) 0.43 X 10*3/uL (0.20-1.00); Monocytes % (A) 7.2 %; Neutrophils # (A) 3.27 X 10*3/uL (1.80-7.70); Neutrophils % (A) 54.3 %; Platelet Count 165 X 10*3/uL (140-440); RBC 3.18 X 10*6/uL (4.40-5.60); RDW 13.7 % (11.5-14.5); WBC 6.01 X 10*3/uL (4.50-10.00)
[2020-07-04 11:33] LABS: Glucose,Whole Blood 262 mg/dL (75-99)
[2020-07-04 13:51] LABS: Chol/HDL Ratio 3.88; LDL Cholesterol,Calculated 77.2 mg/dL (0.0-131.0); VLDL Calculation 20.8 mg/dL (5.00-40.00)
--- NOTE | 2020-07-04 14:19 | P.CRDCN ---
History of Present Illness History of present illness: HISTORY OF PRESENTING ILLNESS This is a pleasant 79-year-old male past medical history significant for coronary artery disease status post bypass grafting in 2001, exact details unavailable, ischemic cardiomyopathy status post AICD ([facility]), hypertension, diabetes mellitus, paroxysmal atrial fibrillation not on prison anticoagulation secondary to history of GI bleeding and dyslipidemia. He follows in the office with a flatwork tier out of [place], previously Dr. Harriet fernandez. He is unsure of his current physicians name.. We have been asked to see in consultation for palpitations and chest pain. He states for the previous couple of days he has been experiencing more frequent episodes of palpitations. He describes it as a hard beating sensation in his chest. When this occurs he feels very dizzy and lightheaded. He denies any exertional chest pain or shortness of breath. He states he saw his new flatwork tier 2 weeks ago and his medications were adjusted. At that time verapamil and Toprol were added and atenolol was discontinued. Most recent echocardiogram obtained in 2018 revealed impaired LV systolic function with ejection fraction 35-40%, mid anterior, mid anterior septal, apical anterior and apical septal wall motion akinesia, mild MR and mild TR noted. DIAGNOSTICS EKG reveals sinus mechanism with left bundle branch block. Telemetry tracings indicate persistent sinus mechanism with episodes of atrial paced rhythm and short runs of nonsustained ventricular tachycardia. Chest xray negative for an acute cardiopulmonary process. Laboratory reviewed, WBC 7, hemoglobin 10.9, platelets 146, sodium 138, potassium 4.0, creatinine 1.5, magnesium 2.1,. Current cardiac medications include lisinopril 5 mg daily, verapamil 240 mg daily, Toprol 50 mg daily and Lasix 120 mg daily. REVIEW OF SYSTEMS At the time of my exam: CONSTITUTIONAL: Denies fever or chills. CARDIOVASCULAR: Denies chest pain, shortness of breath, orthopnea, PND or palpitations. RESPIRATORY: Denies cough. GASTROINTESTINAL: Denies abdominal pain, diarrhea, constipation, nausea or vomiting. MUSCULOSKELETAL: Denies myalgias. NEUROLOGIC: Denies numbness, tingling, headacbe or weakness. ENDOCRINE: Denies fatigue, weight change, polydipsia or polyurina. GENITOURINARY: Denies burning, hematuria or urgency with micturation. HEMATOLOGIC: Denies history of anemia or bleeding. PHYSICAL EXAMINATION Blood pressure 130/54 heart rate 62 afebrile and maintaining oxygen saturation on room air. CONSTITUTIONAL: No apparent distress. HEENT: Head is normocephalic. Pupils are equal, round. Sclerae anicteric. Mucous membranes of the mouth are moist. No JVD. No carotid bruit. CHEST EXAMINATION: Lungs are clear to auscultation. No chest wall tenderness is noted on palpation or with deep breathing. HEART EXAMINATION: Regular rate and rhythm. S1, S2 heard. No murmurs, gallops or rub. ABDOMEN: Soft, nontender. Positive bowel sounds. EXTREMITIES: 2+ peripheral pulses, no lower extremity edema and no calf tenderness. NEUROLOGIC EXAMINATION: Patient is awake, alert and oriented x3. ASSESSMENT Palpitations Elevated troponin likely secondary to afib with RVR, no symptoms of chest pain or angina Paroxysmal atrial fibrillation not on long term care social worker anticoagulation secondary to GI bleeding Coronary artery disease s/p bypass grafting Ischemic cardiomyopathy s/p AICD Non-sustained ventricular tachycardia Hypertension Diabetes mellitus Dyslipidemia PLAN Interrogate AICD to assess afib burden. Obtain records from his primary flatwork tier office. Repeat echocardiogram and doppler study to assess cardiac structure and function. Initiate aspirin 81 mg daily and atorvastatin 80 mg daily. Discontinue verapamil secondary to cardiomyopathy. Toprol has already been changed to lopressor 50 mg BID. Further recommendations to follow based on clinical course. Thank you kindly for this consultation. Nurse Practitioner note has been reviewed, I agree with a documented findings and plan of care. Patient was seen and examined. Past Medical History Past Medical History: Asthma, Coronary Artery Disease (CAD), Cancer, Diabetes Mellitus, Hyperlipidemia, Hypertension, Thyroid Disorder Additional Past Medical History / Comment(s): ,bladder stones,and urinary infection and cellulitis kailyn legs,lymphoma, chemotherapy, radiation,- 06/2011, colitis History of Any Multi-Drug Resistant Organisms: None Reported Past Surgical History: AICD, Coronary Bypass/CABG, Heart Catheterization With Stent, Orthopedic Surgery, Pacemaker Additional Past Surgical History / Comment(s): Lt ankle - plate. sinus surgery s/t cancer. CABG-4 vessels. pacemaker/defib. [facility] upper left chest Past Anesthesia/Blood Transfusion Reactions: No Reported Reaction Additional Past Anesthesia/Blood Transfusion Reaction / Comment(s): no probles with prior blood transfusion Date of Last Stent Placement:: 2001 Type of Cardiac Device: Permanent Pacemaker, AICD Device Placement Date:: 2001 Past Psychological History: No Psychological Hx Reported Smoking Status: Former smoker Past Alcohol Use History: None Reported Additional Past Alcohol Use History / Comment(s): Patient quit smoking in 1967. He denies any medical marijuana, marijuana, street drug or alcohol use. Past Drug Use History: None Reported - Past Family History Brother(s) Additional Family Medical History / Comment(s): Patient has 3 brothers and one has history of coronary artery disease. Sister(s) Additional Family Medical History / Comment(s): Patient has one sister with history of SVT and AVR. Son(s) Additional Family Medical History / Comment(s): Patient has 2 sons and one has history of kidney stones. Patient does not have any daughters. Patient has a grandson treated for SVT. Father Family Medical History: No Reported History Additional Family Medical History / Comment(s): Father at age 72 with history of coronary artery disease and CABG Mother Family Medical History: No Reported History Additional Family Medical History / Comment(s): Mother at age 93 with history of coronary artery disease. Medications and Allergies Home Medications Medication Instructions Recorded Confirmed Type Insulin NPH Human Isophane 18 unit SQ AC-BRKFST 08/04/14 07/03/20 History [NovoLIN N] Insulin Regular, Human [NovoLIN R] See Protocol SQ BID 08/04/14 07/03/20 History Levothyroxine Sodium [Synthroid] 100 mcg PO QAM 08/04/14 07/03/20 History Ranitidine HCl 150 mg PO QAM 08/04/14 07/03/20 History glipiZIDE [Glucotrol XL] 5 mg PO DAILY 08/04/14 07/03/20 History Albuterol Nebulized [Ventolin 2.5 mg INHALATION RT-QID 11/05/16 07/03/20 History Nebulized] Ipratropium Nebulized [Atrovent 0.05 mg INHALATION RT-QID 11/05/16 07/03/20 History Nebulized 0.2 MG/ML] Verapamil HCl [Verapamil ER] 240 mg PO QAM 11/05/16 07/03/20 History Vit C/E/Zn/Coppr/Lutein/Zeaxan 1 cap PO DAILY 04/22/18 07/03/20 History [Preservision Areds 2 Softgel] Insulin NPH Human Isophane See Protocol SQ AC-SUPPER 06/18/18 07/03/20 History [NovoLIN N] Albuterol Inhaler [Ventolin Hfa 1 puff INHALATION RT-QID 07/03/20 07/03/20 History Inhaler] Budesonide [Pulmicort] 0.5 mg INHALATION RT-BID 07/03/20 07/03/20 History Ferrous Sulfate [Feosol] 325 mg PO DAILY 07/03/20 07/03/20 History Furosemide [Lasix] 120 mg PO DAILY 07/03/20 07/03/20 History Metoprolol Succinate (ER) [Toprol 50 mg PO DAILY 07/03/20 07/03/20 History Xl] lisinopriL [Zestril] 5 mg PO DAILY 07/03/20 07/03/20 History Allergies Allergy/AdvReac Type Severity Reaction Status Date / Time esmolol [From Brevibloc] Allergy "felt like Verified 07/03/20 14:27 I was going to pass out" Physical Exam Vitals: Vital Signs Temp Pulse Pulse Resp BP BP Pulse Ox 07/04/20 07:33 63 07/04/20 07:16 62 07/04/20 07:00 97.9 F 60 18 130/54 93 L 07/04/20 02:00 97.6 F 60 18 144/66 94 L 07/03/20 20:52 72 07/03/20 20:39 70 07/03/20 20:00 97.7 F 68 18 149/65 96 07/03/20 16:24 97.4 F L 70 16 162/72 99 07/03/20 15:46 97 F L 68 18 152/73 99 07/03/20 14:00 68 18 152/73 99 07/03/20 13:50 66 18 160/85 96 07/03/20 12:47 97 F L 71 18 155/78 99 Intake and Output 07/03/20 07/04/20 07/04/20 22:59 06:59 14:59 Intake Total 82.158 Output Total 1300 600 Balance -1300 -517.842 Intake: Intake, IV Titration 82.158 Amount Heparin Sod,Pork in 0.45% 82.158 NaCl 25,000 unit In 0.45 % NaCl 1 250ml.bag @ 9.93 UNITS/KG/HR 9.999 mls/hr IV .Q24H [facility] Rx#: [id number] Output: Urine 1300 600 Other: Voiding Method Urinal Urinal Weight 100.698 kg Results 07/04/20 04:47 07/03/20 13:43 Cardiac Enzymes 07/03/20 07/03/20 07/03/20 Range/Units 13:43 13:43 16:39 AST 29 (17-59) U/L Troponin I <0.012 0.065 H* (0.000-0.034) ng/mL 07/03/20 Range/Units 19:22 AST (17-59) U/L Troponin I 0.103 H* (0.000-0.034) ng/mL Coagulation 07/03/20 07/04/20 Range/Units 13:43 00:38 PT 9.7 (9.0-12.0) sec APTT 23.8 45.2 H (22.0-30.0) sec CBC 07/03/20 Range/Units 13:43 WBC 7.0 (3.8-10.6) k/uL RBC 3.41 L (4.30-5.90) m/uL Hgb 10.9 L (13.0-17.5) gm/dL Hct 32.2 L (39.0-53.0) % Plt Count 146 L (150-450) k/uL Comprehensive Metabolic Panel 07/03/20 Range/Units 13:43 Sodium 138 (137-145) mmol/L Potassium 4.0 (3.5-5.1) mmol/L Chloride 106 (98-107) mmol/L Carbon Dioxide 21 L (22-30) mmol/L BUN 33 H (9-20) mg/dL Creatinine 1.50 H (0.66-1.25) mg/dL Glucose 269 H (74-99) mg/dL Calcium 8.9 (8.4-10.2) mg/dL AST 29 (17-59) U/L ALT 16 (4-49) U/L Alkaline Phosphatase 95 (38-126) U/L Total Protein 7.1 (6.3-8.2) g/dL Albumin 3.8 (3.5-5.0) g/dL Current Medications Generic Name Dose Route Start Last Admin Trade Name Freq PRN Reason Stop Dose Admin Albuterol/Ipratropium 3 ml 07/04/20 08:00 07/04/20 07:31 Ipratropium-Albuterol 3 Ml Neb INHALATION Not Given RT-QID MELISA Aspirin 325 mg 07/04/20 09:00 Aspirin 325 Mg Tab PO DAILY MELISA Budesonide 0.5 mg 07/03/20 20:00 07/04/20 07:14 Budesonide 0.5 Mg/2 Ml Nebu INHALATION 0.5 mg RT-BID MELISA Administration Famotidine 20 mg 07/04/20 09:00 Famotidine 20 Mg Tab PO QAM [facility] Ferrous Sulfate 325 mg 07/03/20 17:30 07/03/20 18:45 Ferrous Sulfate 325 Mg Tab PO Not Given DAILY MELISA Furosemide 120 mg 07/03/20 17:30 07/03/20 18:45 Furosemide 40 Mg Tab PO Not Given DAILY MELISA Glipizide 2.5 mg 07/03/20 17:30 07/03/20 18:46 Glipizide 2.5 Mg Tab PO 2.5 mg AC-BID MELISA Administration Heparin Sodium (Porcine) 0 unit 07/03/20 18:14 Heparin Sodium,Porcine 5,000 Unit/Ml 1 Ml Vial IV PER PROTOCOL PRN Low PTT Protocol Heparin Sodium/Sodium Chloride 250 mls @ 9.999 mls/hr 07/03/20 18:15 07/04/20 03:10 25,000 unit/ Sodium Chloride IV 9.93 units/kg/hr .Q24H MELISA 9.999 mls/hr Titration Protocol 9.93 UNITS/KG/HR Insulin Aspart 0 unit 07/03/20 21:00 07/03/20 21:25 Insulin Aspart (Novolog) 100 Unit/Ml Vial SQ 4 unit ACHS MELISA Administration Protocol Insulin Human NPH 18 unit 07/04/20 07:30 Insulin Nph 300 Unit/3 Ml Vial SQ AC-BRKFST [facility] Insulin Human NPH 12 unit 07/03/20 21:00 07/03/20 21:24 Insulin Nph 300 Unit/3 Ml Vial SQ Not Given HS MELISA Levothyroxine Sodium 100 mcg 07/04/20 06:30 07/04/20 05:42 Levothyroxine 100 Mcg Tab PO 100 mcg 0630 MELISA Administration Lisinopril 5 mg 07/03/20 17:30 07/03/20 18:50 Lisinopril 5 Mg Tab PO 5 mg DAILY MELISA Administration Metoprolol Tartrate 50 mg 07/03/20 21:00 07/03/20 21:25 Metoprolol Tartrate 50 Mg Tab PO 50 mg BID MELISA Administration Multivitamins/Minerals 1 each 07/04/20 09:00 Vit A,C & C-Kqivbh-Iujmbtjd 1 Each Tab PO DAILY MELISA Nitroglycerin 0.4 mg 07/03/20 14:39 Nitroglycerin Sl Tabs 0.4 Mg Tab SUBLINGUAL Q5M PRN Chest Pain Nitroglycerin 1 inch 07/03/20 18:00 07/04/20 05:42 Nitroglycerin Oint 1 Inch/Gm Packet TOPICAL Not Given Q6HR [facility] Verapamil HCl 240 mg 07/03/20 17:30 07/03/20 18:46 Verapamil Sr 240 Mg Tablet.Er PO 240 mg QAM MELISA Administration Intake and Output 07/03/20 07/04/20 07/04/20 22:59 06:59 14:59 Intake Total 82.158 Output Total 1300 600 Balance -1300 -517.842 Intake: Intake, IV Titration 82.158 Amount Heparin Sod,Pork in 0.45% 82.158 NaCl 25,000 unit In 0.45 % NaCl 1 250ml.bag @ 9.93 UNITS/KG/HR 9.999 mls/hr IV .Q24H [facility] Rx#: [id number] Output: Urine 1300 600 Other: Voiding Method Urinal Urinal Weight 100.698 kg 07/03/20 13:43 07/03/20 13:43
[2020-07-04 16:52] LABS: Glucose,Whole Blood 144 mg/dL (75-99)
[2020-07-04] MEDS: HEPARIN SOD,PORK IN 0.45% NACL 25,000 UNIT in 0.45% NACL 1 250ML.BAG IV SCH (17:50)
[2020-07-04 20:50] LABS: Glucose,Whole Blood 192 mg/dL (75-99)
[2020-07-05] MEDS: LEVOTHYROXINE 100 MCG TAB PO SCH (05:53)
[2020-07-05 06:47] LABS: Glucose,Whole Blood 133 mg/dL (75-99)
[2020-07-05] MEDS: BUDESONIDE 0.5 MG/2 ML NEBU INHALATION SCH (07:12)
[2020-07-05] MEDS: IPRATROPIUM-ALBUTEROL 3 ML NEB INHALATION SCH ×2 (07:12→10:52)
[2020-07-05 07:35] VITALS: BP 164/73; RESP 20; TEMP 97.6
[2020-07-05] MEDS: FAMOTIDINE 20 MG TAB PO SCH (07:59)
[2020-07-05] MEDS: ASPIRIN 81 MG PO SCH (07:59)
[2020-07-05] MEDS: FERROUS SULFATE 325 MG TAB PO SCH (08:00)
[2020-07-05] MEDS: ATORVASTATIN 80 MG TAB PO SCH (08:00)
[2020-07-05] MEDS: lisinopriL 5 MG TAB PO SCH (08:00)
[2020-07-05] MEDS: METOPROLOL TARTRATE 50 MG TAB PO SCH (08:00)
[2020-07-05] MEDS: FUROSEMIDE 40 MG TAB PO SCH (08:00)
[2020-07-05] MEDS: VIT A,C & E-LUTEIN-MINERALS 1 EACH TAB PO SCH (08:00)
[2020-07-05] MEDS: INSULIN ASPART (NovoLOG) 100 UNIT/ML VIAL SQ SCH ×2 (08:05→12:26)
--- NOTE | 2020-07-05 08:08 | P.PN ---
Subjective Progress Note Date: 07/04/20 HISTORY OF PRESENT ILLNESS This is a 79-year-old pleasant gentleman who is a patient of Dr. Tay Rice. With past medical history significant for asthma, COPD, diabetes, hypertension, hypothyroidism, history of lymphoma status post chemotherapy and radiation, history of colitis, history of coronary artery disease status post CABG 2013, history of sick sinus syndrome status post pacemaker in 2001. She he presented to emergency room secondary to palpitations off and on for the past 1 month, patient was recently put on Toprol, which is not helping. Patient was milan ving another symptoms today, for which EMS has come in, heart rate was in the 140s, and lasting for approximately one hour. Patient felt a little bit of chest discomfort, lightheadedness, and pain radiated to the left arm. Patient arm refused to go to the EMS, he was given another dose of beta ivy that time, and there was controlled temporarily of the chest palpitations. However as soon as the EMS went out, while packing her bags patient had another episode of palpitations, in the heart rate of 130s, with subsequent emergency room visit, secondary to could be junctional rhythm with uncontrolled rate in the 130s. Emergency room, the ER doctor was not able to identify P-wave, heart rate in the 60s. Patient is on albuterol, verapamil 240, and metoprolol 50 mg daily. Consult with cardiology, secondary to tachycardia with uncontrolled heart rate and rate related angina troponin is 0.012 creatinine 1.5 on admission 2.1 no TSH available for review. We've increased her metoprolol to 50 mg twice a day, Diltiazem 240 mg daily cardiology is on consult 07/04: Patient has been seen by cardiology and medication adjustments have been made including adding aspirin 81 mg daily, atorvastatin 80 mg daily, verapamil was discontinued, Toprol changed to Lopressor 50 mg twice daily. Echocardiogram report is pending. Pacemaker is to be interrogated today. He does complain of palpitations. No chest pain. REVIEW OF SYSTEMS Constitutional: No fever, no chills, no night sweats. No weight change. No weakness, fatigue or lethargy. No daytime sleepiness. EENT: No headache. No blurred vision or double vision, no loss of vision. No loss of Hearing, no ringing in the ears, no dizziness. No nasal drainage or congestion. No epistaxis. No sore throat. Lungs: No shortness of breath, cough, no sputum production. No wheezing. Cardiovascular: No chest pain, no lower extremity edema. Reports palpitations. No paroxysmal nocturnal dyspnea. No orthopnea. No lightheadedness or dizziness. No syncopal episodes. Abdominal: No abdominal pain. No nausea, vomiting. No diarrhea. No constipation. No bloody or tarry stools.. No loss of appetite. Genitourinary: No dysuria, increased frequency, urgency. No urinary retention. Musculoskeletal: No myalgias. No muscle weakness, no gait dysfunction, no frequent falls. No back pain. No neck pain. Integumentary: No wounds, no lesions. No rash or pruritus. No unusual bruising. No change in hair or nails. Neurologic: No aphasia. No facial droop. No change in mentation. No head injury. No headache. No paralysis. No paresthesia. Psychiatric: No depression. No anxiety. No mood swings. Endocrine: No abnormal blood sugars. No weight change. No excessive sweating or thirst. No cold intolerance. PHYSICAL EXAMINATION Gen: This is a 79-year-old male. Patient's resting bed appears to be comfortable. HEENT: Head is atraumatic, normocephalic. Pupils equal, round. Sclerae is anicteric. NECK: Supple. No JVD. No lymphadenopathy. No thyromegaly. LUNGS: Clear to auscultation. No wheezes or rhonchi. No intercostal retractions. HEART: Regular rate and rhythm. No murmur. ABDOMEN: Soft. Bowel sounds are present. No masses. No tenderness. EXTREMITIES: No pedal edema. No calf tenderness. NEUROLOGICAL: Patient is awake, alert and oriented x3. Cranial nerves 2 through 12 are 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. ASSESSMENT AND PLAN 1. Junctional rhythm, with sinus tachycardia, sick sinus syndrome is contemplated.cardiology consult appreciated. Continue aspirin 81 mg daily, atorvastatin 80 mg daily, verapamil was discontinued, Toprol changed to Lo pressor 50 mg twice daily. Echocardiogram report is pending. Pacemaker is to be interrogated today. 2. Rate related chest pain, suspect unstable angina, troponin would be obtained, echocardiogram nitro when necessary patient is on aspirin 325 mg daily nitro when necessary 3. Chronic diastolic CHF, on Lasix 120 mg daily 3. BPH. Flomax 0.4 mg daily 3. Hypertension. Continue Lasix 120 mg daily, lisinopril 5 mg daily, Lopressor 50 g twice daily, verapamil 4. Diabetes mellitus. Continue glipizide 2.5 mg by mouth twice a day, continue Humulin 18 units subcu before meals breakfast, 12 units subcu before meals supper. Continue insulin sliding scale. Monitor glucose before meals and at bedtime. 5. COPD. Continue DuoNeb as needed 6. Hypothyroid. Levothyroxine 100 g by mouth daily TSH 7. Constipation MiraLAX 17 g by mouth daily 8. GI prophylaxis. Pepcid 20 mg by mouth 9. DVT prophylaxis. Heparin 5000 units subcu every 12h. DISCHARGE PLAN Most likely home on . Impression and plan of care have been directed as dictated by the signing physician. Radha Loco nurse practitioner acting as scribe for signing physician. Objective - Vital Signs Vital signs: Vital Signs Temp 97.9 F 07/04/20 07:00 Pulse 63 07/04/20 07:33 Resp 18 07/04/20 08:00 BP 130/54 07/04/20 07:00 Pulse Ox 93 L 07/04/20 07:00 Intake & Output 07/03/20 07/04/20 07/04/20 18:59 06:59 18:59 Intake Total 82.158 118 Output Total 600 1300 Balance -600 -1217.842 118 Weight 100.698 kg Intake: Intake, IV Titration 82.158 Amount Heparin Sod,Pork in 0.45% 82.158 NaCl 25,000 unit In 0.45 % NaCl 1 250ml.bag @ 9.93 UNITS/KG/HR 9.999 mls/hr IV .Q24H [facility] Rx#: [id number] Oral 118 Output: Urine 600 1300 Other: Voiding Method Urinal Urinal - Labs CBC & Chem 7: 07/04/20 04:47 07/03/20 13:43 Labs: Abnormal Lab Results - Last 24 Hours (Table) 07/03/20 07/03/20 07/03/20 Range/Units 13:43 13:43 16:39 RBC 3.41 L (4.30-5.90) m/uL Hgb 10.9 L (13.0-17.5) gm/dL Hct 32.2 L (39.0-53.0) % Plt Count 146 L (150-450) k/uL APTT (22.0-30.0) sec Carbon Dioxide 21 L (22-30) mmol/L BUN 33 H (9-20) mg/dL Creatinine 1.50 H (0.66-1.25) mg/dL Glucose 269 H (74-99) mg/dL POC Glucose (mg/dL) (75-99) mg/dL Troponin I 0.065 H* (0.000-0.034) ng/mL 07/03/20 07/03/20 07/03/20 Range/Units 18:03 19:22 21:16 RBC (4.30-5.90) m/uL Hgb (13.0-17.5) gm/dL Hct (39.0-53.0) % Plt Count (150-450) k/uL APTT (22.0-30.0) sec Carbon Dioxide (22-30) mmol/L BUN (9-20) mg/dL Creatinine (0.66-1.25) mg/dL Glucose (74-99) mg/dL POC Glucose (mg/dL) 218 H 204 H (75-99) mg/dL Troponin I 0.103 H* (0.000-0.034) ng/mL 07/04/20 07/04/20 07/04/20 Range/Units 00:38 03:43 06:21 RBC (4.30-5.90) m/uL Hgb (13.0-17.5) gm/dL Hct (39.0-53.0) % Plt Count (150-450) k/uL APTT 45.2 H (22.0-30.0) sec Carbon Dioxide (22-30) mmol/L BUN (9-20) mg/dL Creatinine (0.66-1.25) mg/dL Glucose (74-99) mg/dL POC Glucose (mg/dL) 131 H 142 H (75-99) mg/dL Troponin I (0.000-0.034) ng/mL
[2020-07-05 08:47] LABS: Basophils # (A) 0.03 X 10*3/uL (0.00-0.10); Basophils % (A) 0.4 %; Eosinophils # (A) 0.25 X 10*3/uL (0.04-0.35); Eosinophils % (A) 3.7 %; HCT 30.8 % (39.6-50.0); HGB 9.6 g/dL (13.0-17.0); Lymphocytes # (A) 2.56 X 10*3/uL (0.90-5.00); Lymphocytes % (A) 38.4 %; MCH 29.9 pg (27.0-32.0); MCHC 31.2 g/dL (32.0-37.0); Mean Platelet Volume 10.1 fL (9.5-12.2); Monocytes # (A) 0.39 X 10*3/uL (0.20-1.00); Monocytes % (A) 5.8 %; Neutrophils # (A) 3.42 X 10*3/uL (1.80-7.70); Neutrophils % (A) 51.4 %; Platelet Count 156 X 10*3/uL (140-440); RBC 3.21 X 10*6/uL (4.40-5.60); RDW 13.8 % (11.5-14.5); WBC 6.67 X 10*3/uL (4.50-10.00)
[2020-07-05] MEDS: INSULIN NPH 300 UNIT/3 ML VIAL SQ SCH (08:55)
--- NOTE | 2020-07-05 10:23 | P.DS ---
Providers Date of admission: 07/03/20 14:51 Expected date of discharge: 07/05/20 Attending physician: Lexis Thompson Consults: 07/03/20 14:40 Consult Physician Urgent Consulting Provider: [facility] Consult Reason/Comments: Chest pain, tachycardia Do you want consulting provider notified?: Yes Primary care physician: [facility] Hospital Course: This is a 79-year-old pleasant gentleman who is a patient of Dr. Tay Rice. With past medical history significant for asthma, COPD, diabetes, hypertension, hypothyroidism, history of lymphoma status post chemotherapy and radiation, history of colitis, history of coronary artery disease status post CABG 2013, history of sick sinus syndrome status post pacemaker in 2001. She he presented to emergency room secondary to palpitations off and on for the past 1 month, patient was recently put on Toprol, which is not helping. Patient was having another symptoms today, for which EMS has come in, heart rate was in the 140s, and lasting for approximately one hour. Patient felt a little bit of chest discomfort, lightheadedness, and pain radiated to the left arm. Patient arm refused to go to the EMS, he was given another dose of beta ivy that time, and there was controlled temporarily of the chest palpitations. However as soon as the EMS went out, while packing her bags patient had another episode of palpitations, in the heart rate of 130s, with subsequent emergency room visit, secondary to could be junctional rhythm with uncontrolled rate in the 130s. Emergency room, the ER doctor was not able to identify P-wave, heart rate in the 60s. Patient is on albuterol, verapamil 240, and metoprolol 50 mg daily. Consult with cardiology, secondary to tachycardia with uncontrolled heart rate and rate related angina troponin is 0.012 creatinine 1.5 on admission 2.1 no TSH available for review. We've increased her metoprolol to 50 mg twice a day, Diltiazem 240 mg daily cardiology is on consult 07/04: Patient has been seen by cardiology and medication adjustments have been made including adding aspirin 81 mg daily, atorvastatin 80 mg daily, verapamil was discontinued, Toprol changed to Lopressor 50 mg twice daily. Echocardiogram report is pending. Pacemaker is to be interrogated today. He does complain of palpitations. No chest pain.07/05: 07/05: Patient has been afebrile, heart rate in the 60s, blood pressure 137/63, pulse ox 94% on room air. Blood sugars are running between 133 and 192. Echocardiogram reveals EF of 40-45%, moderate concentric left hypertrophy, mild mitral regurgitation, mild tricuspid regurgitation, mild pulmonary hypertension. Patient has had no significant arrhythmias on telemetry or device interrogation. Cardiology increase lisinopril and discontinue verapamil and discharged and continue Lopressor. Follow-up with his primary client architect. Patient will be discharged home today in stable condition. Discharge diagnoses: 1. Junctional rhythm, with sinus tachycardia, sick sinus syndrome is contemplated. 2. Rate related chest pain, suspect unstable angina 3. Chronic diastolic CHF 3. BPH. 3. Hypertension. 4. Diabetes mellitus2. 5. COPD. 6. Hypothyroid. 7. Constipation DISCHARGE PLAN home Impression and plan of care have been directed as dictated by the signing physician. Radha Looc nurse practitioner acting as scribe for signing physician. Health Concerns: Follow up with his own Supervisor [employer] at [facility] Patient Condition at Discharge: Good Plan - Discharge Summary New Discharge Prescriptions: New Aspirin 81 mg PO DAILY chew Atorvastatin [Lipitor] 80 mg PO DAILY #30 tab Metoprolol Tartrate [Lopressor] 50 mg PO BID #60 tab lisinopriL [Zestril] 5 mg PO BID #60 tab Magnesium Oxide [Mag-Ox] 400 mg PO DAILY #30 tablet Continue glipiZIDE [Glucotrol XL] 5 mg PO DAILY Ranitidine HCl 150 mg PO QAM Levothyroxine Sodium [Synthroid] 100 mcg PO QAM Insulin NPH Human Isophane [NovoLIN N] 18 unit SQ AC-BRKFST Insulin Regular, Human [NovoLIN R] See Protocol SQ BID Albuterol Nebulized [Ventolin Nebulized] 2.5 mg INHALATION RT-QID Ipratropium Nebulized [Atrovent Nebulized 0.2 MG/ML] 0.05 mg INHALATION RT- QID Vit C/E/Zn/Coppr/Lutein/Zeaxan [Preservision Areds 2 Softgel] 1 cap PO DAILY Insulin NPH Human Isophane [NovoLIN N] See Protocol SQ AC-SUPPER Albuterol Inhaler [Ventolin Hfa Inhaler] 1 puff INHALATION RT-QID Budesonide [Pulmicort] 0.5 mg INHALATION RT-BID Ferrous Sulfate [Iron (65 MG Elemental)] 325 mg PO DAILY Furosemide [Lasix] 120 mg PO DAILY Discontinued Verapamil HCl [Verapamil ER] 240 mg PO QAM lisinopriL [Zestril] 5 mg PO DAILY Metoprolol Succinate (ER) [Toprol Xl] 50 mg PO DAILY Discharge Medication List Insulin NPH Human Isophane [NovoLIN N] 18 unit SQ AC-BRKFST 08/04/14 [History] Insulin Regular, Human [NovoLIN R] See Protocol SQ BID 08/04/14 [History] Levothyroxine Sodium [Synthroid] 100 mcg PO QAM 08/04/14 [History] Ranitidine HCl 150 mg PO QAM 08/04/14 [History] glipiZIDE [Glucotrol XL] 5 mg PO DAILY 08/04/14 [History] Albuterol Nebulized [Ventolin Nebulized] 2.5 mg INHALATION RT-QID 11/05/16 [History] Ipratropium Nebulized [Atrovent Nebulized 0.2 MG/ML] 0.05 mg INHALATION RT-QID 11/05/16 [History] Vit C/E/Zn/Coppr/Lutein/Zeaxan [Preservision Areds 2 Softgel] 1 cap PO DAILY 04/22/18 [History] Insulin NPH Human Isophane [NovoLIN N] See Protocol SQ AC-SUPPER 06/18/18 [History] Albuterol Inhaler [Ventolin Hfa Inhaler] 1 puff INHALATION RT-QID 07/03/20 [History] Budesonide [Pulmicort] 0.5 mg INHALATION RT-BID 07/03/20 [History] Ferrous Sulfate [Iron (65 MG Elemental)] 325 mg PO DAILY 07/03/20 [History] Furosemide [Lasix] 120 mg PO DAILY 07/03/20 [History] Aspirin 81 mg PO DAILY chew 07/05/20 [Rx] Atorvastatin [Lipitor] 80 mg PO DAILY #30 tab 07/05/20 [Rx] Magnesium Oxide [Mag-Ox] 400 mg PO DAILY #30 tablet 07/05/20 [Rx] Metoprolol Tartrate [Lopressor] 50 mg PO BID #60 tab 07/05/20 [Rx] lisinopriL [Zestril] 5 mg PO BID #60 tab 07/05/20 [Rx] Follow up Appointment(s)/Referral(s): Samuel Venegas MD [Primary Care Provider] - 07/12/20 10:15 am Patient Instructions/Handouts: Chest Pain (DC), Tachycardia (ED) Discharge Disposition: HOME SELF-CARE
--- NOTE | 2020-07-05 10:34 | P.PN ---
Subjective HISTORY OF PRESENTING ILLNESS This is a pleasant 79-year-old male past medical history significant for coronary artery disease status post bypass grafting in 2001, exact details unavailable, ischemic cardiomyopathy status post AICD ([facility] 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 He follows in the office with a board filler out of [place], previously Dr. Bravo. He is seen and examined sitting up in bed in no acute distress. He continues to complain of feeling intermittent palpitations. Telemetry tracings with previous 24 hours are unremarkable. Device interrogation reveals his A. fib burden is less than 1%. He had no episodes of ventricular tachycardia or ventricular fibrillation. Blood pressure 164/73 heart rate 61 afebrile maintaining oxygen saturation on room air. Laboratory data pending. PHYSICAL EXAMINATION CONSTITUTIONAL: No apparent distress. HEENT: Head is normocephalic. Pupils are equal, round. Sclerae anicteric. Mucous membranes of the mouth are moist. No JVD. No carotid bruit. CHEST EXAMINATION: Lungs are clear to auscultation. No chest wall tenderness is noted on palpation or with deep breathing. HEART EXAMINATION: Regular rate and rhythm. S1, S2 heard. No murmurs, gallops or rub. EXTREMITIES: 2+ peripheral pulses, no lower extremity edema and no calf tenderness. ASSESSMENT Palpitations Elevated troponin of unclear etiology, no chest pain and no arrhythmia noted on device interrogation Paroxysmal atrial fibrillation not on ferry terminal supervisor anticoagulation secondary to GI bleeding Coronary artery disease s/p bypass grafting Ischemic cardiomyopathy s/p AICD Non-sustained ventricular tachycardia Hypertension Diabetes mellitus Dyslipidemia PLAN Clinically he is stable. He has no episodes of significant arrhythmia noted on telemetry tracings or device interrogation. Echocardiogram has been obtained and will be reviewed. Increase lisinopril to 5 mg twice a day. Discontinue verapamil on discharge. Continue lopressor as previously ordered. Recommend outpatient follow-up with his primary board filler for further outpatient testing. Nurse Practitioner note has been reviewed, I agree with a documented findings and plan of care. Patient was seen and examined. Objective - Vital Signs Vital signs: Vital Signs Temp 97.6 F 07/05/20 07:00 Pulse 61 07/05/20 07:31 Resp 20 07/05/20 08:00 BP 164/73 07/05/20 07:00 Pulse Ox 96 07/05/20 07:00 Intake & Output 07/04/20 07/05/20 07/05/20 18:59 06:59 18:59 Intake Total 500.652 118.488 Output Total 600 900 350 Balance -99.348 -781.512 -350 Intake: Intake, IV Titration 146.652 118.488 Amount Heparin Sod,Pork in 0.45% 146.652 118.488 NaCl 25,000 unit In 0.45 % NaCl 1 250ml.bag @ 9.93 UNITS/KG/HR 9.999 mls/hr IV .Q24H MELISA Rx#: [id number] Oral 354 Output: Urine 600 900 350 Other: Voiding Method Urinal Urinal # Bowel Movements 1 - Labs CBC & Chem 7: 07/05/20 04:54 07/03/20 13:43 Labs: Abnormal Lab Results - Last 24 Hours (Table) 07/04/20 07/04/20 07/04/20 Range/Units 04:47 04:47 11:32 RBC 3.18 L (4.40-5.60) X 10*6/uL Hgb 9.6 L (13.0-17.0) g/dL Hct 30.1 L (39.6-50.0) % MCHC 31.9 L (32.0-37.0) g/dL APTT (22.0-30.0) sec POC Glucose (mg/dL) 262 H (75-99) mg/dL HDL Cholesterol 34.0 L (40.0-60.0) mg/dL 07/04/20 07/04/20 07/05/20 Range/Units 16:51 20:47 04:54 RBC 3.21 L (4.40-5.60) X 10*6/uL Hgb 9.6 L (13.0-17.0) g/dL Hct 30.8 L (39.6-50.0) % MCHC 31.2 L (32.0-37.0) g/dL APTT (22.0-30.0) sec POC Glucose (mg/dL) 144 H 192 H (75-99) mg/dL HDL Cholesterol (40.0-60.0) mg/dL 07/05/20 07/05/20 Range/Units 04:54 06:46 RBC (4.40-5.60) X 10*6/uL Hgb (13.0-17.0) g/dL Hct (39.6-50.0) % MCHC (32.0-37.0) g/dL APTT 36.1 H (22.0-30.0) sec POC Glucose (mg/dL) 133 H (75-99) mg/dL HDL Cholesterol (40.0-60.0) mg/dL
[2020-07-05 10:48] LABS: African American GFR (CKD) 47.1 (60.0-200.0); Anion Gap 10.2 mmol/L (4.00-12.00); Calcium 8.5 mg/dL (8.7-10.3); Carbon Dioxide 23.8 mmol/L (21.6-31.8); Non-African American GFR(CKD) 40.7 (60.0-200.0); Potassium 3.7 mmol/L (3.5-5.5)
[2020-07-05 10:57] VITALS: PULSE 64
[2020-07-05 11:23] LABS: Glucose,Whole Blood 201 mg/dL (75-99)
--- NOTE | 2020-07-05 12:30 | ECHOF ---
Referral Reason:palpitations MEASUREMENTS -------- HEIGHT: 180.3 cm WEIGHT: 100.7 kg BP: 137/63 RVIDd: 3.7 cm (< 3.3) IVSd: 1.5 cm (0.6 - 1.1) LVIDd: 4.7 cm (3.9 - 5.3) LVPWd: 1.5 cm (0.6 - 1.1) IVSs: 1.9 cm LVIDs: 3.4 cm LVPWs: 1.6 cm LAESV Index (A-L): 31.56 ml/m Ao Diam: 3.0 cm (2.0 - 3.7) AV Cusp: 2.3 cm (1.5 - 2.6) LA Diam: 4.5 cm (2.7 - 3.8) MV EXCURSION: 18.919 mm (> 18.000) MV EF SLOPE: 108 mm/s (70 - 150) EPSS: 0.9 cm MV E David: 0.69 m/s MV DecT: 234 ms MV A David: 0.95 m/s MV E/A Ratio: 0.72 RAP: 5.00 mmHg RVSP: 37.81 mmHg FINDINGS -------- Sinus rhythm. Pacerwire seen in RV and RA. This was a technically difficult study with suboptimal views. The left ventricular size is normal. There is moderate concentric left ventricular hypertrophy. O verall left ventricular systolic function is mild-moderately impaired with, an EF between 40 - 45 %. Basal inferior LV wall motion is hypokinetic. Basal inferoseptal LV wall motion is hypokinetic. Mid inferior LV wall motion is hypokinetic. The right ventricle is mildly enlarged. LA is midly dilated 29-33ml/m2. The right atrium was not well visualized. Electronic pacemaker lead seen in the right atrial cavity . 5.0mg of Lumason was utilized for enhancement of images Interatrial and interventricular septum intact. There is mild aortic valve sclerosis. There is no evidence of aortic regurgitation. There is no e vidence of aortic stenosis. Mild mitral annular calcification present. Mild mitral regurgitation is present. Mild tricuspid regurgitation present. There is mild pulmonary hypertension. The right ventricular systolic pressure, as measured by Doppler, is 37.81mmHg. Trace/mild (physiologic) pulmonic regurgitation. The aortic root size is normal. IVC Not well visulized. There is no pericardial effusion. CONCLUSIONS -------- 1. Pacerwire seen in RV and RA. 2. This was a technically difficult study with suboptimal views. 3. There is moderate concentric left ventricular hypertrophy. 4. Overall left ventricular systolic function is mild-moderately impaired with, an EF between 40 - 45 %. 5. Basal inferior LV wall motion is hypokinetic. 6. Basal inferoseptal LV wall motion is hypokinetic. 7. Mid inferior LV wall motion is hypokinetic. 8. The right ventricle is mildly enlarged. 9. LA is midly dilated 29-33ml/m2. 10. There is mild aortic valve sclerosis. 11. Mild mitral regurgitation is present. 12. Mild tricuspid regurgitation present. 13. There is mild pulmonary hypertension. 14. Trace/mild (physiologic) pulmonic regurgitation. MANDREL PRESS HAND: Parul Mullen RDCS
[2020-07-05] MEDS ORDERED: lisinopriL 5 MG TAB PO SCH (21:00)
== END 2020-07-05 14:00 | disposition home or self-care (01) ==
LOC: EC 12:39 → 6NMEDSUR 14:51
PROVIDERS: ADMIT Family Medicine; ATTEND Family Medicine
DX: R00.2 Palpitations (principal); R07.89 Other chest pain; I11.0 Hypertensive heart disease with heart failure; I50.32 Chronic diastolic (congestive) heart failure; N40.0 Benign prostatic hyperplasia without lower urinary tract symptoms; E11.9 Type 2 diabetes mellitus without complications; J44.9 Chronic obstructive pulmonary disease, unspecified; E03.9 Hypothyroidism, unspecified; K59.00 Constipation, unspecified; I25.10 Atherosclerotic heart disease of native coronary artery without angina pectoris; Z79.899 Other long term (current) drug therapy; R42 Dizziness and giddiness; E78.5 Hyperlipidemia, unspecified; I48.0 Paroxysmal atrial fibrillation; I25.5 Ischemic cardiomyopathy; I47.2 Ventricular tachycardia; E66.9 Obesity, unspecified; Z68.31 Body mass index [BMI] 31.0-31.9, adult; Z88.8 Allergy status to other drugs, medicaments and biological substances; I27.20 Pulmonary hypertension, unspecified; Z95.810 Presence of automatic (implantable) cardiac defibrillator; Z87.19 Personal history of other diseases of the digestive system; Z92.21 Personal history of antineoplastic chemotherapy; Z95.1 Presence of aortocoronary bypass graft; Z85.72 Personal history of non-Hodgkin lymphomas; Z95.0 Presence of cardiac pacemaker; Z92.3 Personal history of irradiation; Z87.440 Personal history of urinary (tract) infections; Z86.19 Personal history of other infectious and parasitic diseases; Z87.891 Personal history of nicotine dependence; Z79.4 Long term (current) use of insulin; Z79.890 Hormone replacement therapy; Z79.51 Long term (current) use of inhaled steroids; Z82.49 Family history of ischemic heart disease and other diseases of the circulatory system; Z84.1 Family history of disorders of kidney and ureter; Z20.822 Contact with and (suspected) exposure to COVID-19
CPT/HCPCS: 96376 ×2; 96365; 96366 ×3; 93005 ×2; 99285; 36415; 94640 ×5; 94760; 80061; 80053; 80048; 84443; 83735; 84484; 85025 ×3; 85610; 85730 ×3; 87635; 71046; G0378 ×3; C8929; J1644 ×4; Q9950; 93306

== ENCOUNTER 2020-09-19 21:47 | Emergency (ER) | payer MEDICARE ==
[2020-09-19 21:54] VITALS: TEMP 98.1
[2020-09-19] MEDS ORDERED: SODIUM CHLORIDE 0.9% 500 ML 500 ML IV STA (22:00)
[2020-09-19] MEDS ORDERED: SODIUM CHLORIDE 0.9% 1,000 ML IV STA (22:00)
--- NOTE | 2020-09-19 22:11 | ED ---
Chest Pain HPI - General Chief Complaint: Chest Pain Stated Complaint: Chest Pain Time Seen by Provider: 09/19/20 21:50 Source: EMS, RN notes reviewed, old records reviewed Limitations: no limitations - History of Present Illness Initial Comments: This is a 80-year-old male DF for evaluation. Patient presents today for evaluation regards to chest pain. Patient was found to be nature fibrillation with RVR. Patient presents for evaluation of tachycardia. Tachycardia on arrival to ER has resolved. Patient states this happens to him quite often multiple times a day he came to the ER because of associated with chest pain he couldn't get it number which he usually can some breath holding tests. Patient states chest pain resolved with heart rate resolved of heart resolved during EMS transport. Patient remains asymptomatic MD Complaint: chest pain (Resolved) -: hour(s) Onset: during rest Pain Location: substernal Pain Radiation: none Severity: mild Severity scale (1-10): 1 Quality: tightness Consistency: intermittent, now resolved Improves With: nothing Worsens With: nothing Other Symptoms: palpitations Treatments Prior to Arrival: none - Related Data Home Medications Medication Instructions Recorded Confirmed Insulin NPH Human Isophane 18 unit SQ AC-BRKFST 08/04/14 09/19/20 [NovoLIN N] Insulin Regular, Human [NovoLIN R] See Protocol SQ BID 08/04/14 09/19/20 Levothyroxine Sodium [Synthroid] 100 mcg PO QAM 08/04/14 09/19/20 glipiZIDE [Glucotrol XL] 5 mg PO DAILY 08/04/14 09/19/20 Albuterol Nebulized [Ventolin 2.5 mg INHALATION RT-QID 11/05/16 09/19/20 Nebulized] Ipratropium Nebulized [Atrovent 0.05 mg INHALATION RT-QID 11/05/16 09/19/20 Nebulized 0.2 MG/ML] Vit C/E/Zn/Coppr/Lutein/Zeaxan 1 cap PO DAILY 04/22/18 09/19/20 [Preservision Areds 2 Softgel] Insulin NPH Human Isophane See Protocol SQ AC-SUPPER 06/18/18 09/19/20 [NovoLIN N] Albuterol Inhaler [Ventolin Hfa 1 puff INHALATION RT-QID 07/03/20 09/19/20 Inhaler] Budesonide [Pulmicort] 0.5 mg INHALATION RT-BID 07/03/20 09/19/20 Ferrous Sulfate [Iron (65 MG 325 mg PO DAILY 07/03/20 09/19/20 Elemental)] Furosemide [Lasix] 120 mg PO DAILY 07/03/20 09/19/20 Atorvastatin [Lipitor] 80 mg PO HS 09/19/20 09/19/20 Clopidogrel [Plavix] 75 mg PO DAILY 09/19/20 09/19/20 Famotidine [Pepcid] 20 mg PO DAILY 09/19/20 09/19/20 Previous Rx's Medication Instructions Recorded Aspirin 81 mg PO DAILY chew 07/05/20 Magnesium Oxide [Mag-Ox] 400 mg PO DAILY #30 tablet 07/05/20 Metoprolol Tartrate [Lopressor] 50 mg PO BID #60 tab 07/05/20 lisinopriL [Zestril] 5 mg PO BID #60 tab 07/05/20 Allergies Allergy/AdvReac Type Severity Reaction Status Date / Time esmolol [From Brevibloc] Allergy "felt like Verified 09/19/20 23:26 I was going to pass out" Review of Systems ROS Statement: Those systems with pertinent positive or pertinent negative responses have been documented in the HPI. ROS Other: All systems not noted in ROS Statement are negative. EKG Findings - EKG Comments: EKG Findings:: Disease sinus rhythm 66 TX 194 QRS 114 QTc 457 Past Medical History Past Medical History: Asthma, Coronary Artery Disease (CAD), Cancer, Diabetes Mellitus, Hyperlipidemia, Hypertension, Thyroid Disorder Additional Past Medical History / Comment(s): ,bladder stones,and urinary infection and cellulitis kailyn legs,lymphoma, chemotherapy, radiation,- 06/2011, colitis History of Any Multi-Drug Resistant Organisms: None Reported Past Surgical History: AICD, Coronary Bypass/CABG, Heart Catheterization With Stent, Orthopedic Surgery, Pacemaker Additional Past Surgical History / Comment(s): Lt ankle - plate. sinus surgery s/t cancer. CABG-4 vessels. pacemaker/defib. [facility] upper left chest Past Anesthesia/Blood Transfusion Reactions: No Reported Reaction Additional Past Anesthesia/Blood Transfusion Reaction / Comment(s): no probles with prior blood transfusion Date of Last Stent Placement:: 2001 Type of Cardiac Device: Permanent Pacemaker, AICD Device Placement Date:: 2001 Past Psychological History: No Psychological Hx Reported Smoking Status: Former smoker Past Alcohol Use History: None Reported Past Drug Use History: None Reported - Past Family History Brother(s) Additional Family Medical History / Comment(s): Patient has 3 brothers and one has history of coronary artery disease. Sister(s) Additional Family Medical History / Comment(s): Patient has one sister with history of SVT and AVR. Son(s) Additional Family Medical History / Comment(s): Patient has 2 sons and one has history of kidney stones. Patient does not have any daughters. Patient has a grandson treated for SVT. Father Family Medical History: No Reported History Additional Family Medical History / Comment(s): Father at age 72 with history of coronary artery disease and CABG Mother Family Medical History: No Reported History Additional Family Medical History / Comment(s): Mother at age 93 with history of coronary artery disease. General Exam Limitations: no limitations General appearance: alert, in no apparent distress, anxious Head exam: Present: atraumatic, normocephalic, normal inspection Eye exam: Present: normal appearance, PERRL, EOMI. Absent: scleral icterus, conjunctival injection, periorbital swelling ENT exam: Present: normal exam, mucous membranes moist Neck exam: Present: normal inspection. Absent: tenderness, meningismus, lymphadenopathy Respiratory exam: Present: normal lung sounds bilaterally. Absent: respiratory distress, wheezes, rales, rhonchi, stridor Cardiovascular Exam: Present: regular rate, normal rhythm, normal heart sounds. Absent: systolic murmur, diastolic murmur, rubs, gallop, clicks GI/Abdominal exam: Present: soft, normal bowel sounds. Absent: distended, tenderness, guarding, rebound, rigid Extremities exam: Present: normal inspection, full ROM, normal capillary refill. Absent: tenderness, pedal edema, joint swelling, calf tenderness Back exam: Present: normal inspection Neurological exam: Present: alert, oriented X3, CN II-XII intact Psychiatric exam: Present: normal affect, normal mood Skin exam: Present: warm, dry, intact, normal color. Absent: rash Course Vital Signs 09/19/20 09/19/20 09/19/20 21:51 22:30 23:00 Temperature 98.1 F Pulse Rate 64 60 63 Respiratory 16 16 18 Rate Blood Pressure 136/92 119/76 171/67 O2 Sat by Pulse 98 99 99 Oximetry 09/19/20 09/20/20 23:30 00:00 Temperature Pulse Rate 63 60 Respiratory 15 18 Rate Blood Pressure 144/113 145/64 O2 Sat by Pulse 99 98 Oximetry - Reevaluation(s) Reevaluation #1: Medical record is reviewed Symptoms improved here in the ER Patient informed of results and questions answered Chest Pain MDM - MDM 80 male DF for chest pain that resolved prior to arrival tachycardia resolved prior to arrival. Patient will continue follow-up with cardiology Disposition Clinical Impression: Chest pain, Tachycardia Disposition: HOME SELF-CARE Condition: Good Instructions (If sedation given, give patient instructions): Chest Pain (ED), Tachycardia (ED) Is patient prescribed a controlled substance at d/c from ED?: No Referrals: Samuel Venegas MD [Primary Care Provider] - 1-2 days
--- NOTE | 2020-09-19 22:42 | XR ---
EXAMINATION TYPE: XR chest 2V DATE OF EXAM: 09/19/2020 COMPARISON: 07/03/2020 HISTORY: Weakness TECHNIQUE: 2 views FINDINGS: There is no heart failure nor confluent pneumonic infiltrate. Costophrenic angles are clear . There are no hilar masses. There are sternal wires. There is left axillary pacemaker. Bony thorax i s intact. IMPRESSION: No active cardiopulmonary disease. Normal heart. No change.
[2020-09-19 22:50] LABS: Basophils % (A) 1 %; Eosinophils # (A) 0.4 k/uL (0-0.7); Eosinophils % (A) 6 %; HCT 31.4 % (39.0-53.0); HGB 10.1 gm/dL (13.0-17.5); Lymphocytes # (A) 2.1 k/uL (1.0-4.8); Lymphocytes % (A) 34 %; MCHC 32.3 g/dL (31.0-37.0); MCV 92.9 fL (80.0-100.0); Mean Platelet Volume 6.8; Monocytes # (A) 0.3 k/uL (0-1.0); Monocytes % (A) 5 %; Neutrophils # (A) 3.4 k/uL (1.3-7.7); Neutrophils % (A) 54 %; Platelet Count 158 k/uL (150-450); RBC 3.38 m/uL (4.30-5.90); RDW 14.2 % (11.5-15.5); WBC 6.3 k/uL (3.8-10.6)
[2020-09-19 22:51] VITALS: PULSE 60
[2020-09-19 22:52] LABS: Appearance,Urine Clear (Clear); Bilirubin,Urine Negative (Negative); Blood,Urine Negative (Negative); Color,Urine Colorless; Glucose,Urine (UA) 1+ (Negative); Ketones,Urine Negative (Negative); Leukocyte Esterase,Urine Negative (Negative); Nitrite,Urine Negative (Negative); PH, Urine 5.5 (5.0-8.0); Protein,Urine Negative (Negative); Specific Gravity,Urine 1.007 (1.001-1.035); Urobilinogen,Urine <2.0 mg/dL (<2.0)
[2020-09-19 22:57] LABS: INR 0.9 (<1.2); Partial Thromboplastin Time 23.2 sec (22.0-30.0); Prothrombin Time 9.5 sec (9.0-12.0)
[2020-09-19 23:09] LABS: Albumin 3.7 g/dL (3.5-5.0); Calcium 8.7 mg/dL (8.4-10.2); Magnesium 2.1 mg/dL (1.6-2.3); Phosphorus 3.3 mg/dL (2.5-4.5); Potassium 3.8 mmol/L (3.5-5.1); Total Bilirubin 0.2 mg/dL (0.2-1.3); Total Protein 6.9 g/dL (6.3-8.2)
[2020-09-20 00:22] VITALS: BP 145/64; RESP 18
== END 2020-09-20 00:33 | disposition home or self-care (01) ==
LOC: EC 21:47 → SUPCPDRO 21:47 → EC 09-20 00:33
DX: R07.89 Other chest pain (principal); R00.0 Tachycardia, unspecified; I10 Essential (primary) hypertension; E78.5 Hyperlipidemia, unspecified; E11.9 Type 2 diabetes mellitus without complications; I25.10 Atherosclerotic heart disease of native coronary artery without angina pectoris; J45.909 Unspecified asthma, uncomplicated; Z95.1 Presence of aortocoronary bypass graft; Z95.5 Presence of coronary angioplasty implant and graft; Z87.891 Personal history of nicotine dependence; Z79.51 Long term (current) use of inhaled steroids; Z79.4 Long term (current) use of insulin; Z79.02 Long term (current) use of antithrombotics/antiplatelets; Z95.0 Presence of cardiac pacemaker
CPT/HCPCS: 36415; 71046; 80053; 81003; 83735; 83880; 84100; 84484; 85025; 85610; 85730; 93005; 96360; 96361; 99285

== ENCOUNTER 2020-09-29 19:27 | Observation (INO) | payer MEDICARE ==
--- NOTE | 2020-09-29 19:58 | ED ---
General Adult HPI - General Chief complaint: Chest Pain Stated complaint: Chest Pain Time Seen by Provider: 09/29/20 19:29 Source: patient, EMS Mode of arrival: EMS Limitations: no limitations - History of Present Illness Initial comments: 80 year-old male patient presents to the emergency department reporting "chest pain". Patient states it started at 1530 this afternoon. States it was constant and is now intermittent. When asked where the pain is located he points to his upper abdomen, worse over the right side. States it feels like a "cramp". Denies any shortness of breath, nausea, vomiting, or sweats. Denies any constipation or diarrhea. Denies any pain with urination. Does have history of CABG, has a pacemaker, denies history of abdominal surgery. Patient denies any recent rash, fever, chills, cough, constipation, back pain, numbness, tingling, dizziness, weakness, hematuria, dysuria, urinary urgency, urinary frequency, headache, visual changes, or any other complaints. - Related Data Home Medications Medication Instructions Recorded Confirmed Insulin NPH Human Isophane 18 unit SQ AC-BRKFST 08/04/14 09/19/20 [NovoLIN N] Insulin Regular, Human [NovoLIN R] See Protocol SQ BID 08/04/14 09/19/20 Levothyroxine Sodium [Synthroid] 100 mcg PO QAM 08/04/14 09/19/20 glipiZIDE [Glucotrol XL] 5 mg PO DAILY 08/04/14 09/19/20 Albuterol Nebulized [Ventolin 2.5 mg INHALATION RT-QID 11/05/16 09/19/20 Nebulized] Ipratropium Nebulized [Atrovent 0.05 mg INHALATION RT-QID 11/05/16 09/19/20 Nebulized 0.2 MG/ML] Vit C/E/Zn/Coppr/Lutein/Zeaxan 1 cap PO DAILY 04/22/18 09/19/20 [Preservision Areds 2 Softgel] Insulin NPH Human Isophane See Protocol SQ AC-SUPPER 06/18/18 09/19/20 [NovoLIN N] Albuterol Inhaler [Ventolin Hfa 1 puff INHALATION RT-QID 07/03/20 09/19/20 Inhaler] Budesonide [Pulmicort] 0.5 mg INHALATION RT-BID 07/03/20 09/19/20 Ferrous Sulfate [Iron (65 MG 325 mg PO DAILY 07/03/20 09/19/20 Elemental)] Furosemide [Lasix] 120 mg PO DAILY 07/03/20 09/19/20 Atorvastatin [Lipitor] 80 mg PO HS 09/19/20 09/19/20 Clopidogrel [Plavix] 75 mg PO DAILY 09/19/20 09/19/20 Famotidine [Pepcid] 20 mg PO DAILY 09/19/20 09/19/20 Previous Rx's Medication Instructions Recorded Aspirin 81 mg PO DAILY chew 07/05/20 Magnesium Oxide [Mag-Ox] 400 mg PO DAILY #30 tablet 07/05/20 Metoprolol Tartrate [Lopressor] 50 mg PO BID #60 tab 07/05/20 lisinopriL [Zestril] 5 mg PO BID #60 tab 07/05/20 Allergies Allergy/AdvReac Type Severity Reaction Status Date / Time esmolol [From Brevibloc] Allergy "felt like Verified 09/29/20 19:34 I was going to pass out" Review of Systems ROS Statement: Those systems with pertinent positive or pertinent negative responses have been documented in the HPI. ROS Other: All systems not noted in ROS Statement are negative. Past Medical History Past Medical History: Asthma, Coronary Artery Disease (CAD), Cancer, Diabetes Mellitus, Hyperlipidemia, Hypertension, Thyroid Disorder Additional Past Medical History / Comment(s): ,bladder stones,and urinary infection and cellulitis kailyn legs,lymphoma, chemotherapy, radiation,- 06/2011, colitis History of Any Multi-Drug Resistant Organisms: None Reported Past Surgical History: AICD, Coronary Bypass/CABG, Heart Catheterization With Stent, Orthopedic Surgery, Pacemaker Additional Past Surgical History / Comment(s): Lt ankle - plate. sinus surgery s/t cancer. CABG-4 vessels. pacemaker/defib. [facility] upper left chest Past Anesthesia/Blood Transfusion Reactions: No Reported Reaction Additional Past Anesthesia/Blood Transfusion Reaction / Comment(s): no probles with prior blood transfusion Date of Last Stent Placement:: 2001 Type of Cardiac Device: Permanent Pacemaker, AICD Device Placement Date:: 2001 Past Psychological History: No Psychological Hx Reported Smoking Status: Former smoker Past Alcohol Use History: None Reported Past Drug Use History: None Reported - Past Family History Brother(s) Additional Family Medical History / Comment(s): Patient has 3 brothers and one has history of coronary artery disease. Sister(s) Additional Family Medical History / Comment(s): Patient has one sister with history of SVT and AVR. Son(s) Additional Family Medical History / Comment(s): Patient has 2 sons and one has history of kidney stones. Patient does not have any daughters. Patient has a grandson treated for SVT. Father Family Medical History: No Reported History Additional Family Medical History / Comment(s): Father at age 72 with history of coronary artery disease and CABG Mother Family Medical History: No Reported History Additional Family Medical History / Comment(s): Mother at age 93 with h istory of coronary artery disease. General Exam Limitations: no limitations General appearance: alert, in no apparent distress, other (Physical well- developed, well-nourished adult male patient in no acute distress. Vital signs upon presentation are temperature 97.4F, pulse 61, respirations 18, blood pressure 120/96, pulse ox 98% on room air.) Eye exam: Present: normal appearance, PERRL, EOMI. Absent: scleral icterus, conjunctival injection, periorbital swelling ENT exam: Present: normal exam, normal oropharynx, mucous membranes moist Respiratory exam: Present: normal lung sounds bilaterally Cardiovascular Exam: Present: regular rate, normal rhythm, normal heart sounds. Absent: systolic murmur, diastolic murmur, rubs, gallop, clicks GI/Abdominal exam: Present: soft, tenderness (Right mid abdomen), normal bowel sounds. Absent: distended, guarding, rebound, rigid Neurological exam: Present: alert, oriented X3, CN II-XII intact Psychiatric exam: Present: normal affect, normal mood Skin exam: Present: warm, dry, intact, normal color. Absent: rash Course Vital Signs 09/29/20 09/29/20 19:29 21:40 Temperature 97.4 F L Pulse Rate 61 65 Respiratory 18 18 Rate Blood Pressure 120/96 157/75 O2 Sat by Pulse 98 98 Oximetry EKG Findings - EKG Comments: EKG Findings:: EKG obtained in 1931 shows atrial paced rhythm with a rate of 61, QRS duration 100, QT 434, QTC 436. No evidence of ST elevation or depression. Medical Decision Making - Medical Decision Making 80-year-old male patient presents to the emergency department today for e valuation of chest pain. Physical examination did reveal mild mid right abdominal tenderness. He points to his lower chest and upper abdomen for location of pain. Labs reviewed and are unremarkable. Troponin is negative. Vital signs are within normal ranges. Chest x-ray is negative. CT abdomen and pelvis without contrast was obtained and was negative. EKG. Serial troponins. He verbalizes understanding and agrees with this plan. Case discussed with my attending Dr. Dunlap. - Lab Data Result diagrams: 09/29/20 19:50 09/29/20 19:50 Lab Results 09/29/20 09/29/20 09/29/20 Range/Units 19:50 19:50 19:50 WBC 8.2 (3.8-10.6) k/uL RBC 3.23 L (4.30-5.90) m/uL Hgb 10.3 L (13.0-17.5) gm/dL Hct 29.8 L (39.0-53.0) % MCV 92.2 (80.0-100.0) fL MCH 31.8 (25.0-35.0) pg MCHC 34.5 (31.0-37.0) g/dL RDW 14.1 (11.5-15.5) % Plt Count 167 (150-450) k/uL MPV 6.7 Neutrophils % 62 % Lymphocytes % 26 % Monocytes % 6 % Eosinophils % 5 % Basophils % 1 % Neutrophils # 5.1 (1.3-7.7) k/uL Lymphocytes # 2.1 (1.0-4.8) k/uL Monocytes # 0.5 (0-1.0) k/uL Eosinophils # 0.4 (0-0.7) k/uL Basophils # 0.1 (0-0.2) k/uL PT 9.5 (9.0-12.0) sec INR 0.9 (<1.2) APTT 23.3 (22.0-30.0) sec Sodium 137 (137-145) mmol/L Potassium 4.7 (3.5-5.1) mmol/L Chloride 105 (98-107) mmol/L Carbon Dioxide 25 (22-30) mmol/L Anion Gap 7 mmol/L BUN 30 H (9-20) mg/dL Creatinine 1.43 H (0.66-1.25) mg/dL Est GFR (CKD-EPI)AfAm 54 (>60 ml/min/1.73 sqM) Est GFR (CKD-EPI)NonAf 47 (>60 ml/min/1.73 sqM) Glucose 69 L (74-99) mg/dL Plasma Lactic Acid Juancho (0.7-2.0) mmol/L Calcium 10.0 (8.4-10.2) mg/dL Magnesium 2.6 H (1.6-2.3) mg/dL Total Bilirubin 0.2 (0.2-1.3) mg/dL AST 22 (17-59) U/L ALT 16 (4-49) U/L Alkaline Phosphatase 93 (38-126) U/L Troponin I (0.000-0.034) ng/mL Total Protein 7.4 (6.3-8.2) g/dL Albumin 4.0 (3.5-5.0) g/dL Lipase 39 (23-300) U/L Urine Color Urine Appearance (Clear) Urine pH (5.0-8.0) Ur Specific [place] (1.001-1.035) Urine Protein (Negative) Urine Glucose (UA) (Negative) Urine Ketones (Negative) Urine Blood (Negative) Urine Nitrite (Negative) Urine Bilirubin (Negative) Urine Urobilinogen (<2.0) mg/dL Ur Leukocyte Esterase (Negative) 09/29/20 09/29/20 09/29/20 Range/Units 19:50 19:50 21:30 WBC (3.8-10.6) k/uL RBC (4.30-5.90) m/uL Hgb (13.0-17.5) gm/dL Hct (39.0-53.0) % MCV (80.0-100.0) fL MCH (25.0-35.0) pg MCHC (31.0-37.0) g/dL RDW (11.5-15.5) % Plt Count (150-450) k/uL MPV Neutrophils % % Lymphocytes % % Monocytes % % Eosinophils % % Basophils % % Neutrophils # (1.3-7.7) k/uL Lymphocytes # (1.0-4.8) k/uL Monocytes # (0-1.0) k/uL Eosinophils # (0-0.7) k/uL Basophils # (0-0.2) k/uL PT (9.0-12.0) sec INR (<1.2) APTT (22.0-30.0) sec Sodium (137-145) mmol/L Potassium (3.5-5.1) mmol/L Chloride (98-107) mmol/L Carbon Dioxide (22-30) mmol/L Anion Gap mmol/L BUN (9-20) mg/dL Creatinine (0.66-1.25) mg/dL Est GFR (CKD-EPI)AfAm (>60 ml/min/1.73 sqM) Est GFR (CKD-EPI)NonAf (>60 ml/min/1.73 sqM) Glucose (74-99) mg/dL Plasma Lactic Acid Juancho 1.2 (0.7-2.0) mmol/L Calcium (8.4-10.2) mg/dL Magnesium (1.6-2.3) mg/dL Total Bilirubin (0.2-1.3) mg/dL AST (17-59) U/L ALT (4-49) U/L Alkaline Phosphatase (38-126) U/L Troponin I <0.012 (0.000-0.034) ng/mL Total Protein (6.3-8.2) g/dL Albumin (3.5-5.0) g/dL Lipase (23-300) U/L Urine Color Colorless Urine Appearance Clear (Clear) Urine pH 5.0 (5.0-8.0) Ur Specific [place] 1.006 (1.001-1.035) Urine Protein Negative (Negative) Urine Glucose (UA) Negative (Negative) Urine Ketones Negative (Negative) Urine Blood Negative (Negative) Urine Nitrite Negative (Negative) Urine Bilirubin Negative (Negative) Urine Urobilinogen <2.0 (<2.0) mg/dL Ur Leukocyte Esterase Negative (Negative) - Radiology Data Radiology results: report reviewed, image reviewed Two-view x-ray of the chest is obtained. Report was reviewed in its entirety. Impression by Dr. Fitzgerald shows no active cardiopulmonary disease. No change. CT of the pelvis without contrast was obtained. Report was reviewed in its entirety. Impression by Dr. Fitzgerald shows multiple bilateral renal calculi. No definite ureteral calculus. Mild fullness of the left ureter. There is clearing of the right side obstruction compared to old exam. Extensive atherosclerotic vascular disease. There is clearing of atelectasis right lung base compared to old exam. Disposition Clinical Impression: Chest pain, Abdominal pain Disposition: ADMITTED IP TO THIS [facility] Condition: Serious Referrals: Samuel Venegas MD [Primary Care Provider] - 1-2 days Decision to Admit Reason: Admit from EC Decision Date: 09/29/20 Decision Time: 21:53
[2020-09-29 20:01] LABS: Basophils # (A) 0.1 k/uL (0-0.2); Basophils % (A) 1 %; Eosinophils # (A) 0.4 k/uL (0-0.7); Eosinophils % (A) 5 %; HCT 29.8 % (39.0-53.0); HGB 10.3 gm/dL (13.0-17.5); Lymphocytes # (A) 2.1 k/uL (1.0-4.8); Lymphocytes % (A) 26 %; MCH 31.8 pg (25.0-35.0); MCHC 34.5 g/dL (31.0-37.0); MCV 92.2 fL (80.0-100.0); Mean Platelet Volume 6.7; Monocytes # (A) 0.5 k/uL (0-1.0); Monocytes % (A) 6 %; Neutrophils # (A) 5.1 k/uL (1.3-7.7); Neutrophils % (A) 62 %; Platelet Count 167 k/uL (150-450); RBC 3.23 m/uL (4.30-5.90); RDW 14.1 % (11.5-15.5); WBC 8.2 k/uL (3.8-10.6)
[2020-09-29 20:11] LABS: INR 0.9 (<1.2); Magnesium 2.6 mg/dL (1.6-2.3); Partial Thromboplastin Time 23.3 sec (22.0-30.0); Potassium 4.7 mmol/L (3.5-5.1); Prothrombin Time 9.5 sec (9.0-12.0); Total Bilirubin 0.2 mg/dL (0.2-1.3); Total Protein 7.4 g/dL (6.3-8.2)
--- NOTE | 2020-09-29 20:15 | XR ---
EXAMINATION TYPE: XR chest 2V DATE OF EXAM: 09/29/2020 COMPARISON: 09/19/2020 HISTORY: Chest pain TECHNIQUE: 2 views FINDINGS: Heart and mediastinum are normal. Lungs are clear. Diaphragm is normal. There is left axill annetta pacemaker. There are sternal wires. Thoracic spine is intact. IMPRESSION: No active cardiopulmonary disease. No change.
[2020-09-29] MEDS ORDERED: ONDANSETRON 4 MG/2 ML VIAL IVP STA (20:33)
[2020-09-29] MEDS ORDERED: MORPHINE SULFATE 2 MG/ML SYRINGE IVP STA (20:33)
--- NOTE | 2020-09-29 21:17 | CT ---
EXAMINATION TYPE: CT abdomen pelvis wo con DATE OF EXAM: 09/29/2020 COMPARISON: 11/05/2016 HISTORY: abdominal pain and bloating CT DLP: 792.3 mGycm Automated exposure control for dose reduction was used. Lung bases are clear. Heart appears enlarged. There is no pleural effusion. Gallbladder is intact. There is vascular calcification. Liver is intact. There is no evidence of sple marcello mass. Stomach is intact. There is no sign of pancreatic mass. There is some pancreatic atrophy. There is no adrenal mass. Kidneys have normal size. There is 3 cm cortical cyst lower pole right kidn ey. There is some fullness of the left and right renal pelvis. There is some fullness of the left ure ter but no ureteral stone seen. There are phleboliths in the pelvis. I see no definite stone in the r ight ureter. There appears to be clearing of the small calculi distal right ureter compared to old ex am. There are small bilateral multiple renal calculi measuring up to 4 mm. There is no retroperitonea l adenopathy. Bladder distends smoothly. There is no inguinal hernia. There is no free fluid in the p john. Appendix is posterior and appears normal. There is no ascites or free air. There is no bowel o bstruction. There is L5 spondylolysis with first-degree L5-S1 spondylolisthesis. There is no lumbar c ompression fracture. There is degenerative disc narrowing and vacuum disc in the lower lumbar spine. Bony pelvis is intact. Hip joints are intact. IMPRESSION: Multiple bilateral renal calculi. No definite ureteral calculus. Mild fullness of the left ureter. Th ere is clearing of the right side obstruction compared to old exam. Extensive atherosclerotic vascular disease. There is clearing of the atelectasis right lung base comp ared to old exam.
[2020-09-29] MEDS ORDERED: MORPHINE SULFATE 4 MG/ML SYRINGE IVP STA (21:28)
[2020-09-29 21:43] LABS: Appearance,Urine Clear (Clear); Bilirubin,Urine Negative (Negative); Blood,Urine Negative (Negative); Color,Urine Colorless; Glucose,Urine (UA) Negative (Negative); Ketones,Urine Negative (Negative); Leukocyte Esterase,Urine Negative (Negative); Nitrite,Urine Negative (Negative); Protein,Urine Negative (Negative); Specific Gravity,Urine 1.006 (1.001-1.035); Urobilinogen,Urine <2.0 mg/dL (<2.0)
[2020-09-29] MEDS ORDERED: NALOXONE 0.4 MG/ML 1 ML VIAL IV PRN (21:50)
[2020-09-29] MEDS ORDERED: MORPHINE SULFATE 4 MG/ML SYRINGE IV PRN (21:50)
[2020-09-29] MEDS ORDERED: ONDANSETRON 4 MG/2 ML VIAL IVP PRN (21:50)
[2020-09-29 22:17] LABS: Glucose,Whole Blood 76 mg/dL (75-99)
[2020-09-29 23:51] VITALS: RESP 16; TEMP 97.6
[2020-09-30 07:25] LABS: Glucose,Whole Blood 131 mg/dL (75-99)
[2020-09-30 08:41] VITALS: BP 123/59; PULSE 60
[2020-09-30] MEDS ORDERED: METOPROLOL TARTRATE 50 MG TAB PO SCH ×2 (10:00→21:00)
[2020-09-30] MEDS ORDERED: CLOPIDOGREL 75 MG TAB PO SCH (10:00)
[2020-09-30 12:02] LABS: Glucose,Whole Blood 187 mg/dL (75-99)
--- NOTE | 2020-09-30 15:05 | CONS ---
CONSULTATION Vinnie Orozco is a pleasant 80-year-old gentleman, a patient who has had most of his health care at [facility], came in with complaints of mostly abdominal discomfort. He felt like a bandlike sensation around the umbilicus area, more on the right and left flank as well. With these symptoms,he came in and he also complained of some sharp chest pains and indicated that in the last 6 weeks or so he has had a stenting performed from the right radial approach. However, he has no chest discomfort. Most of the symptoms seem to be related to the abdomen. He is resting comfortably without symptoms at the time of my evaluation other than some mild abdominal discomfort. He has been seen previously by Urology. He had a cystoscopy with the lithotripsy, details of which are not available at this time. He has had a previous echocardiogram in June, which revealed an ejection fraction of 40-45 percent with inferior wall hypokinesia and no significant pulmonary hypertension. He also has history of prior aortocoronary bypass surgery that was performed more than 15 years ago. PAST MEDICAL HISTORY: 1. This is remarkable for CAD with prior bypass surgery and recently had a PCI details unavailable. Patient does not have a stent card. 2. Hypertension. 3. Hyperlipidemia. 4. History of previous GI bleeding. He has he some issues with GI bleed and therefore he is not on any anticoagulants. 5. He carries a diagnosis of paroxysmal atrial fibrillation. 6. He had a CT scan of the abdomen and pelvis which revealed multiple bilateral renal calculi and there was some fullness of the left ureter. PHYSICAL EXAMINATION: On examination, blood pressure is 128/70, pulse rate is 60 per minute regular. HEENT unremarkable. Fundus was not examined by me. NECK: Supple. There is JVD of 1 cm. No carotid bruit. HEART exam reveals S1 and S2 with a short systolic murmur at the base preserved second heart sound. LUNGS are clear without any rales or rhonchi. ABDOMEN is soft, nontender. Lower EXTREMITIES reveal diminished pulses with some pigmentation. CENTRAL NERVOUS SYSTEM grossly within normal limits. EKG revealed atrial paced rhythm, nonspecific ST changes and poor R-wave progression. IMPRESSION: 1. Patient with known coronary artery disease, prior bypass surgery and ischemic cardiomyopathy with ICD. 2. Status post recent PCI from radial approach, details unavailable. 3. Abdominal pain and symptoms and presentation suggests renal colic type pain with probably kidney stones. 4. History of paroxysmal atrial fibrillation, not on anticoagulation because of gastrointestinal bleeding history in the past. RECOMMENDATIONS: No intervention from a cardiac standpoint. I would recommend that we continue all medications including dual antiplatelet therapy. Further input will be based on the urology evaluation. No other intervention necessary from a cardiac standpoint. We will continue to see the patient as needed. I will resume his beta ivy, dual antiplatelet therapy and statin agent and seek urology input. Thank you for the consultation. MMYEMI / IJN: [id number] /
[2020-09-30] MEDS ORDERED: IPRATROPIUM 0.5 MG/2.5 ML NEBU INHALATION SCH (16:00)
[2020-09-30] MEDS ORDERED: ALBUTEROL NEB (CONC) 2.5 MG/0.5 ML INHALATION SCH (16:00)
[2020-09-30] MEDS ORDERED: ALBUTEROL NEBULIZED 2.5 MG/3 ML INHALATION SCH ×2 (16:00)
--- NOTE | 2020-09-30 16:21 | P.HPIM ---
History of Present Illness H&P Date: 09/30/20 (This document was of both his H&P and discharge summary) his is a 79-year-old pleasant gentleman who is a patient of Dr. Tay Rice. With past medical history significant for asthma, COPD, diabetes, hypertension, hypothyroidism, history of lymphoma status post chemotherapy and radiation, history of colitis- ulcerative colitis per patient, history of coronary artery disease status post CABG 2001, history of sick sinus syndrome status post pacemaker in 2001. Patient follows [facility] at [facility] and documents to having stenting done 6 weeks ago for his coronary artery dise ase. Details of which are not available here. She was recently admitted in June 2020 for elevated troponin and palpitations. Patient pacemaker was interrogated during that visit had no significant arrhythmia was noted on the device. He had A. fib Cor[place] of less than 1%. Comes in this time with upper abdominal pain which she describes as a bandlike sensation around the upper abdomen associated with cramping. Patient has bilateral lower extremity pain and weakness that is chronic. He denies any flank pain. He did have some chest pain for which cardiac evaluation was obtained. Vitals were obtained in the ER with a temperature of 97.6 pulse 60 respiratory rate 16 blood pressure 123/59. Oxygen saturation 97% on room air labs reviewed yesterday her hemoglobin 10.3 stable as compared to previous labs platelet 167 INR 0.9 BUN 30 creatinine 1.43 glucose was 69 on admission troponin 2 negative. Lipase is normal As patient was complaining of abdominal pain and CAT scan of the abdomen and pelvis were obtained. Multiple bilateral renal calculi was noted but no definite ureteral c alculi noted. Mild fullness of the left ureter noted. There is clearing of obstruction on the right side that was noted in 2017 CAT scan. Extensive atherosclerotic vascular disease noted. Chest x-rays were negative for any acute abnormality does show left axillary pacemaker. UA is negative. Ca rdiology evaluated the patient rule out ACS. Patient has no obstruction or hydronephrosis to suggest renal colic. He does document cramping which could be related to underlying colitis. Review of Systems Constitutional: Denies chills, Denies fever, Denies lethargy, Denies malaise, Denies poor appetite, Denies weakness, Denies weight loss Eyes: denies decreased vision, denies diplopia, denies discharge, denies pain Ears: deny: decreased hearing Ears, nose, mouth and throat: Denies dental pain, Denies headache, Denies nasal discharge, Denies nose pain Cardiovascular: Denies chest pain, Denies decreased exercise tolerance, Denies edema, Denies high blood pressure, Denies irregular heart beat, Denies palpitations, Denies paroxysmal nocturnal dyspnea, Denies rapid heart beat, Denies shortness of breath Respiratory: Denies congestion, Denies cough, Denies cough with sputum, Denies dyspnea, Denies home oxygen, Denies wheezing Gastrointestinal: Endorses abdominal pain epigastric in nature, Denies change in bowel habits, Denies coffee ground emesis, Denies early satiety, Denies excessive gas, Denies heartburn, Denies hematemesis, Denies hematochezia, Denies loss of appetite, Denies nausea, Denies vomiting Genitourinary: Denies dysuria, Denies flank pain, Denies kidney stones, Denies menorrhagia, Denies urgency, Denies urinary frequency Musculoskeletal: Denies gait dysfunction, Denies limitation of motion, Denies morning stiffness, Denies muscle cramps endorses weakness Integumentary: Denies rash, Denies wounds, Denies brittle nails, Denies change in hair/nails, Denies darkening of skin Neurological: Denies balance difficulties, Denies change in speech, Denies double vision, Denies gait dysfunction, Denies loss of vision, Denies motor disturbance, Denies numbness, Denies paralysis, Denies paresthesias, Denies seizures Psychiatric: Denies anxiety, Denies depression Endocrine: Denies excessive sweating, Denies excessive thirst, Denies high blood sugars, Denies palpitations Hematologic/Lymphatic: Denies easy bruising, Denies lymphadenopathy Past Medical History Past Medical History: Asthma, Coronary Artery Disease (CAD), Cancer, Diabetes Mellitus, Hyperlipidemia, Hypertension, Thyroid Disorder Additional Past Medical History / Comment(s): ,bladder stones,and urinary infection and cellulitis kailyn legs,lymphoma, chemotherapy, radiation,- 06/2011, colitis History of Any Multi-Drug Resistant Organisms: None Reported Past Surgical History: AICD, Coronary Bypass/CABG, Heart Catheterization With Stent, Orthopedic Surgery, Pacemaker Additional Past Surgical History / Comment(s): Lt ankle - plate. sinus surgery s/t cancer. CABG-4 vessels. pacemaker/defib. [facility] upper left chest Past Anesthesia/Blood Transfusion Reactions: No Reported Reaction Additional Past Anesthesia/Blood Transfusion Reaction / Comment(s): no probles w ith prior blood transfusion Date of Last Stent Placement:: 2001 Type of Cardiac Device: Permanent Pacemaker, AICD Device Placement Date:: 2001 Past Psychological History: No Psychological Hx Reported Smoking Status: Former smoker Past Alcohol Use History: None Reported Additional Past Alcohol Use History / Comment(s): Patient quit smoking in 1967. He denies any medical marijuana, marijuana, street drug or alcohol use. Past Drug Use History: None Reported - Past Family History Brother(s) Additional Family Medical History / Comment(s): Patient has 3 brothers and one has history of coronary artery disease. Sister(s) Additional Family Medical History / Comment(s): Patient has one sister with history of SVT and AVR. Son(s) Additional Family Medical History / Comment(s): Patient has 2 sons and one has history of kidney stones. Patient does not have any daughters. Patient has a grandson treated for SVT. Father Family Medical History: No Reported History Additional Family Medical History / Comment(s): Father at age 72 with history of coronary artery disease and CABG Mother Family Medical History: No Reported History Additional Family Medical History / Comment(s): Mother at age 93 with history of coronary artery disease. Medications and Allergies Home Medications Medication Instructions Recorded Confirmed Type Insulin NPH Human Isophane 18 unit SQ AC-BRKFST 08/04/14 09/30/20 History [NovoLIN N] Insulin Regular, Human [NovoLIN R] See Protocol SQ BID 08/04/14 09/30/20 History Levothyroxine Sodium [Synthroid] 100 mcg PO DAILY 08/04/14 09/30/20 History glipiZIDE [Glucotrol XL] 5 mg PO DAILY 08/04/14 09/30/20 History Albuterol Nebulized [Ventolin 2.5 mg INHALATION RT-QID 11/05/16 09/30/20 History Nebulized] Ipratropium Nebulized [Atrovent 0.05 mg INHALATION RT-QID 11/05/16 09/30/20 History Nebulized 0.2 MG/ML] Vit C/E/Zn/Coppr/Lutein/Zeaxan 1 cap PO DAILY 04/22/18 09/30/20 History [Preservision Areds 2 Softgel] Insulin NPH Human Isophane See Protocol SQ AC-SUPPER 06/18/18 09/30/20 History [NovoLIN N] Albuterol Inhaler [Ventolin Hfa 1 puff INHALATION RT-QID 07/03/20 09/30/20 History Inhaler] Budesonide [Pulmicort] 0.5 mg INHALATION RT-BID 07/03/20 09/30/20 History Ferrous Sulfate [Iron (65 MG 325 mg PO DAILY 07/03/20 09/30/20 History Elemental)] Furosemide [Lasix] 120 mg PO DAILY 07/03/20 09/30/20 History Aspirin 81 mg PO DAILY chew 07/05/20 09/30/20 Rx Magnesium Oxide [Mag-Ox] 400 mg PO DAILY #30 tablet 07/05/20 09/30/20 Rx Metoprolol Tartrate [Lopressor] 50 mg PO BID #60 tab 07/05/20 09/30/20 Rx lisinopriL [Zestril] 5 mg PO BID #60 tab 07/05/20 09/30/20 Rx Atorvastatin [Lipitor] 80 mg PO HS 09/19/20 09/30/20 History Clopidogrel [Plavix] 75 mg PO DAILY 09/19/20 09/30/20 History Famotidine [Pepcid] 20 mg PO DAILY 09/19/20 09/30/20 History Dicyclomine [Bentyl] 10 mg PO QID #60 capsule 09/30/20 Rx Potassium Chloride ER [K-Dur 20] 20 meq PO DAILY 09/30/20 09/30/20 History Allergies Allergy/AdvReac Type Severity Reaction Status Date / Time esmolol [From Brevibloc] Allergy "felt like Verified 09/30/20 08:41 I was going to pass out" Physical Exam Vitals: Vital Signs Temp Pulse Pulse Resp BP BP Pulse Ox 09/30/20 13:41 60 16 09/30/20 08:48 96 09/30/20 08:00 60 16 09/30/20 07:00 97.6 F 60 16 123/59 97 09/30/20 01:40 61 09/30/20 01:37 97.6 F 61 16 162/71 99 09/30/20 00:09 62 16 09/29/20 22:32 97.6 F 62 16 151/73 99 09/29/20 21:40 65 18 157/75 98 09/29/20 19:29 97.4 F L 61 18 120/96 98 Intake and Output 09/30/20 09/30/20 09/30/20 06:59 14:59 22:59 Output Total 425 425 Balance -425 -425 Output: Urine 425 425 Other: Voiding Method Urinal Urinal # Voids 2 2 - Constitutional General appearance: cooperative, no acute distress, obese - EENT Eyes: anicteric sclerae, PERRLA, normal appearance ENT: hearing grossly normal - Neck Neck: no lymphadenopathy, normal ROM, no other, no rigidity, no stridor, no thyromegaly - Respiratory Respiratory: bilateral: CTA, negative: diminished, dullness, rales, rhonchi - Cardiovascular Rhythm: regular Heart sounds: normal: S1, S2 Abnormal Heart Sounds: 3/6 systolic murmur, no diastolic murmur, no rub, S3 Gallop, no S4 Gallop, no click, no other - Gastrointestinal General gastrointestinal: normal bowel sounds, soft mild discomfort in epigastric region - Integumentary Integumentary: no rash - Neurologic Neurologic: No motor or sensory deficit - Musculoskeletal Musculoskeletal: gait normal, strength equal bilaterally - Psychiatric Psychiatric: A&O x's 3, appropriate affect Results CBC & Chem 7: 09/29/20 19:50 09/29/20 19:50 Labs: Abnormal Lab Results - Last 24 Hours (Table) 09/29/20 09/29/20 09/30/20 Range/Units 19:50 19:50 07:23 RBC 3.23 L (4.30-5.90) m/uL Hgb 10.3 L (13.0-17.5) gm/dL Hct 29.8 L (39.0-53.0) % BUN 30 H (9-20) mg/dL Creatinine 1.43 H (0.66-1.25) mg/dL Glucose 69 L (74-99) mg/dL POC Glucose (mg/dL) 131 H (75-99) mg/dL Magnesium 2.6 H (1.6-2.3) mg/dL 09/30/20 Range/Units 12:00 RBC (4.30-5.90) m/uL Hgb (13.0-17.5) gm/dL Hct (39.0-53.0) % BUN (9-20) mg/dL Creatinine (0.66-1.25) mg/dL Glucose (74-99) mg/dL POC Glucose (mg/dL) 187 H (75-99) mg/dL Magnesium (1.6-2.3) mg/dL Thrombosis Risk Factor Assmnt - DVT/VTE Prophylaxis DVT/VTE Prophylaxis: Pharmacologic Prophylaxis ordered - Choose All That Apply Any of the Below Risk Factors Present?: Yes Each Factor Represents 1 point: Abnormal pulmonary function (COPD) Other Risk Factors: Yes Each Risk Factor Represents 3 Points: Age 75 years or older Other congenital or acquired thrombophilia - If yes, enter type in comment: No Thrombosis Risk Factor Assessment Total Risk Factor Score: 4 Thrombosis Risk Factor Assessment Level: Moderate Risk Assessment and Plan Plan: 1. Upper abdominal pain with cramping likely secondary to gastritis. Start patient on pantoprazole 40 mg daily. ACS ruled out. Does document 10 mg 4 times a day as needed for cramping initiated. Patient to follow-up as outpatient with gastroenterology for further workup. 2. Atypical chest pain, echocardiogram with EF 40-45% with moderate concentric left hypertrophy and mild mitral regurgitation and mild tricuspid regurgitation moderate pulmonary hypertension. 3. Chronic diastolic CHF, on Lasix 120 mg daily 3. BPH. Flomax 0.4 mg daily 3. Hypertension. Continue Lasix 120 mg daily, lisinopril 5 mg twice a day Lopressor 50 g twice daily, verapamil DC'd in the last admission 4. Diabetes mellitus. Continue glipizide 2.5 mg by mouth twice a day, continue Humulin 18 units subcu before meals breakfast, 12 units subcu before meals supper. Continue insulin sliding scale. Monitor glucose before meals and at bedtime. 5. COPD. Continue DuoNeb as needed 6. Hypothyroid. Levothyroxine 100 g by mouth daily 7. Constipation MiraLAX 17 g by mouth daily 8. GI prophylaxis. Pepcid 20 mg by mouth 9. Colitis ulcerative? Patient was told he has ulcerative colitis denies any recent colonoscopy. We'll follow up with Dr. Carrizales as outpatient. Dicyclomine ordered for cramping 9. DVT prophylaxis. Heparin 5000 units subcu every 12h. 10. Disposition patient will be discharged home with home care. And follow-up with Dr. Carrizales as outpatient
[2020-09-30] MEDS ORDERED: BUDESONIDE 0.5 MG/2 ML NEBU INHALATION SCH (20:00)
[2020-09-30] MEDS ORDERED: lisinopriL 5 MG TAB PO SCH (21:00)
[2020-09-30] MEDS ORDERED: ATORVASTATIN 80 MG TAB PO SCH ×2 (21:00)
[2020-10-01] MEDS ORDERED: LEVOTHYROXINE 100 MCG TAB PO SCH (06:30)
[2020-10-01] MEDS ORDERED: ASPIRIN 81 MG PO SCH ×2 (09:00)
[2020-10-01] MEDS ORDERED: MAGNESIUM OXIDE 400 MG TAB PO SCH (09:00)
[2020-10-01] MEDS ORDERED: FUROSEMIDE 40 MG TAB PO SCH (09:00)
[2020-10-01] MEDS ORDERED: FERROUS SULFATE 325 MG TAB PO SCH (09:00)
[2020-10-01] MEDS ORDERED: VIT A,C & E-LUTEIN-MINERALS 1 EACH TAB PO SCH (09:00)
[2020-10-01] MEDS ORDERED: CLOPIDOGREL 75 MG TAB PO SCH (09:00)
[2020-10-01] MEDS ORDERED: FAMOTIDINE 20 MG TAB PO SCH (09:00)
[2020-10-01] MEDS ORDERED: POTASSIUM CHLORIDE ER 20 MEQ TAB.ER PO SCH (09:00)
== END 2020-09-30 16:01 | disposition home health service (06) ==
LOC: EC 19:27 → 6NMEDSUR 22:24
PROVIDERS: ADMIT Internal Medicine; ATTEND Internal Medicine
DX: R10.10 Upper abdominal pain, unspecified (principal); R10.33 Periumbilical pain; R07.89 Other chest pain; J45.909 Unspecified asthma, uncomplicated; I25.10 Atherosclerotic heart disease of native coronary artery without angina pectoris; E11.9 Type 2 diabetes mellitus without complications; E78.5 Hyperlipidemia, unspecified; I11.0 Hypertensive heart disease with heart failure; I50.32 Chronic diastolic (congestive) heart failure; I48.0 Paroxysmal atrial fibrillation; K52.9 Noninfective gastroenteritis and colitis, unspecified; I25.5 Ischemic cardiomyopathy; E03.9 Hypothyroidism, unspecified; J44.9 Chronic obstructive pulmonary disease, unspecified; I49.5 Sick sinus syndrome; K29.70 Gastritis, unspecified, without bleeding; I27.20 Pulmonary hypertension, unspecified; N40.0 Benign prostatic hyperplasia without lower urinary tract symptoms; Z20.822 Contact with and (suspected) exposure to COVID-19; K59.00 Constipation, unspecified; M79.604 Pain in right leg; M79.605 Pain in left leg; R53.1 Weakness; N20.0 Calculus of kidney; E66.9 Obesity, unspecified; Z68.30 Body mass index [BMI] 30.0-30.9, adult; Z95.1 Presence of aortocoronary bypass graft; Z95.0 Presence of cardiac pacemaker; Z79.4 Long term (current) use of insulin; Z79.899 Other long term (current) drug therapy; Z79.890 Hormone replacement therapy; Z79.02 Long term (current) use of antithrombotics/antiplatelets; Z79.82 Long term (current) use of aspirin; Z88.8 Allergy status to other drugs, medicaments and biological substances; Z87.440 Personal history of urinary (tract) infections; Z87.442 Personal history of urinary calculi; Z85.72 Personal history of non-Hodgkin lymphomas; Z92.3 Personal history of irradiation; Z92.21 Personal history of antineoplastic chemotherapy; Z87.19 Personal history of other diseases of the digestive system; Z86.19 Personal history of other infectious and parasitic diseases; Z95.5 Presence of coronary angioplasty implant and graft; Z95.810 Presence of automatic (implantable) cardiac defibrillator; Z87.891 Personal history of nicotine dependence; Z82.49 Family history of ischemic heart disease and other diseases of the circulatory system; Z84.1 Family history of disorders of kidney and ureter
CPT/HCPCS: 96376 ×2; 96374; 96375; 99285; 36415; 93005; 80053; 83605; 83690; 83735; 84484 ×2; 85025; 85610; 85730; 81003; 87635; 71046; 74176; G0378 ×2; J2270 ×3; J2405

== ENCOUNTER 2021-07-25 23:07 | Inpatient (IN) | payer MEDICARE ==
[2021-07-26 01:54] LABS: Bacteria,Urine Occasional /hpf; Budding Yeast,Urine Occasional /hpf
[2021-07-26 01:57] LABS: Appearance,Urine Turbid (Clear); Color,Urine Dark Red; WBC,Urine >182 /hpf (0-5)
[2021-07-26 01:58] LABS: RBC,Urine >182 /hpf (0-5)
[2021-07-26 02:30] LABS: Basophils # (A) 0.1 k/uL (0-0.2); Basophils % (A) 1 %; Eosinophils # (A) 0.5 k/uL (0-0.7); Eosinophils % (A) 5 %; HCT 27.9 % (39.0-53.0); HGB 8.7 gm/dL (13.0-17.5); Hypochromasia Slight; Lymphocytes # (A) 1.6 k/uL (1.0-4.8); Lymphocytes % (A) 15 %; MCH 30.8 pg (25.0-35.0); MCHC 31.3 g/dL (31.0-37.0); MCV 98.6 fL (80.0-100.0); Mean Platelet Volume 7.6; Monocytes # (A) 0.6 k/uL (0-1.0); Monocytes % (A) 5 %; Neutrophils # (A) 7.9 k/uL (1.3-7.7); Neutrophils % (A) 73 %; Platelet Count 239 k/uL (150-450); RBC 2.83 m/uL (4.30-5.90); RDW 13.8 % (11.5-15.5); WBC 10.8 k/uL (3.8-10.6)
[2021-07-26 02:41] LABS: Calcium 8.8 mg/dL (8.4-10.2)
[2021-07-26 04:01] LABS: Potassium 5.5 mmol/L (3.5-5.1)
[2021-07-26] MEDS ORDERED: NALOXONE 0.4 MG/ML 1 ML VIAL IV PRN (04:40)
[2021-07-26] MEDS ORDERED: SODIUM CHLORIDE 0.9% 1,000 ML IV SCH (04:45)
[2021-07-26 06:23] LABS: Creatinine,Urine Random 62.1 mg/dL
--- NOTE | 2021-07-26 08:08 | ED ---
General Adult HPI - General Chief complaint: Urogenital Stated complaint: Trouble Urinating/Blood in urine Time Seen by Provider: 07/26/21 01:10 Source: patient Mode of arrival: wheelchair Limitations: no limitations - History of Present Illness Initial comments: 's patient is 80-year-old man who presents with concerns that he is passing blood with urination. This started earlier today. He has urinated a couple times and there is a little bit of clearing since the initial episode but his urine is still red Patient also has been having some lower abdominal pressure. He denied anthony abdominal pain but did state there was pressure with urination. The patient states he had previous kidney stone and felt that this was related. The patient has previously been seen by Dr. Mckeon, and states she was told to come to the emergency department if he was passing blood which he is now. Patient denies fever or chills. -: hour(s) Location: abdomen Radiation: non-radiation Quality: dull Consistency: constant Improves with: none Worsens with: none Associated Symptoms: nausea/vomiting - Related Data Home Medications Medication Instructions Recorded Confirmed Insulin NPH Human Isophane 18 unit SQ AC-BRKFST 08/04/14 09/30/20 [NovoLIN N] Insulin Regular, Human [NovoLIN R] See Protocol SQ BID 08/04/14 09/30/20 Levothyroxine Sodium [Synthroid] 100 mcg PO DAILY 08/04/14 09/30/20 glipiZIDE [Glucotrol XL] 5 mg PO DAILY 08/04/14 09/30/20 Albuterol Nebulized [Ventolin 2.5 mg INHALATION RT-QID 11/05/16 09/30/20 Nebulized] Ipratropium Nebulized [Atrovent 0.05 mg INHALATION RT-QID 11/05/16 09/30/20 Nebulized 0.2 MG/ML] Vit C/E/Zn/Coppr/Lutein/Zeaxan 1 cap PO DAILY 04/22/18 09/30/20 [Preservision Areds 2 Softgel] Insulin NPH Human Isophane See Protocol SQ AC-SUPPER 06/18/18 09/30/20 [NovoLIN N] Albuterol Inhaler [Ventolin Hfa 1 puff INHALATION RT-QID 07/03/20 09/30/20 Inhaler] Budesonide [Pulmicort] 0.5 mg INHALATION RT-BID 07/03/20 09/30/20 Ferrous Sulfate [Iron (65 MG 325 mg PO DAILY 07/03/20 09/30/20 Elemental)] Furosemide [Lasix] 120 mg PO DAILY 07/03/20 09/30/20 Atorvastatin [Lipitor] 80 mg PO HS 09/19/20 09/30/20 Clopidogrel [Plavix] 75 mg PO DAILY 09/19/20 09/30/20 Famotidine [Pepcid] 20 mg PO DAILY 09/19/20 09/30/20 Potassium Chloride ER [K-Dur 20] 20 meq PO DAILY 09/30/20 09/30/20 Previous Rx's Medication Instructions Recorded Aspirin 81 mg PO DAILY chew 07/05/20 Magnesium Oxide [Mag-Ox] 400 mg PO DAILY #30 tablet 07/05/20 Metoprolol Tartrate [Lopressor] 50 mg PO BID #60 tab 07/05/20 lisinopriL [Zestril] 5 mg PO BID #60 tab 07/05/20 Dicyclomine [Bentyl] 10 mg PO QID #60 capsule 09/30/20 Pantoprazole Sodium 40 mg PO DAILY #30 packet 09/30/20 Allergies Allergy/AdvReac Type Severity Reaction Status Date / Time esmolol [From Brevibloc] Allergy "felt like Verified 07/25/21 23:21 I was going to pass out" Review of Systems ROS Statement: Those systems with pertinent positive or pertinent negative responses have been documented in the HPI. ROS Other: All systems not noted in ROS Statement are negative. Constitutional: Denies: fever, chills, weakness Respiratory: Denies: cough, dyspnea Cardiovascular: Denies: chest pain, palpitations, edema Gastrointestinal: Reports: abdominal pain, nausea. Denies: vomiting, diarrhea, constipation, melena, hematochezia Genitourinary: Reports: hematuria. Denies: dysuria, frequency, discharge, kathryn ticular pain Musculoskeletal: Denies: back pain Skin: Denies: rash Neurological: Denies: headache, weakness, numbness Past Medical History Past Medical History: Asthma, Coronary Artery Disease (CAD), Cancer, Diabetes Mellitus, Hyperlipidemia, Hypertension, Thyroid Disorder Additional Past Medical History / Comment(s): ,bladder stones,and urinary infection and cellulitis kailyn legs,lymphoma, chemotherapy, radiation,- 06/2011, colitis History of Any Multi-Drug Resistant Organisms: None Reported Past Surgical History: AICD, Coronary Bypass/CABG, Heart Catheterization With Stent, Orthopedic Surgery, Pacemaker Additional Past Surgical History / Comment(s): Lt ankle - plate. sinus surgery s/t cancer. CABG-4 vessels. pacemaker/defib. [facility] upper left chest Past Anesthesia/Blood Transfusion Reactions: No Reported Reaction Additional Past Anesthesia/Blood Transfusion Reaction / Comment(s): no probles with prior blood transfusion Date of Last Stent Placement:: 2001 Type of Cardiac Device: Permanent Pacemaker, AICD Device Placement Date:: 2001 Past Psychological History: No Psychological Hx Reported Smoking Status: Former smoker Past Alcohol Use History: None Reported Past Drug Use History: None Reported - Past Family History Brother(s) Additional Family Medical History / Comment(s): Patient has 3 brothers and one has history of coronary artery disease. Sister(s) Additional Family Medical History / Comment(s): Patient has one sister with history of SVT and AVR. Son(s) Additional Family Medical History / Comment(s): Patient has 2 sons and one has history of kidney stones. Patient does not have any daughters. Patient has a grandson treated for SVT. Father Family Medical History: No Reported History Additional Family Medical History / Comment(s): Father at age 72 with history of coronary artery disease and CABG Mother Family Medical History: No Reported History Additional Family Medical History / Comment(s): Mother at age 93 with history of coronary artery disease. General Exam Limitations: no limitations General appearance: alert, in no apparent distress Head exam: Present: atraumatic, normocephalic Eye exam: Present: normal appearance. Absent: scleral icterus, conjunctival injection Neck exam: Present: normal inspection Respiratory exam: Present: normal lung sounds bilaterally. Absent: respiratory distress, wheezes, rales, rhonchi, stridor Cardiovascular Exam: Present: regular rate, normal rhythm, normal heart sounds. Absent: systolic murmur, diastolic murmur, rubs, gallop GI/Abdominal exam: Present: soft. Absent: distended, tenderness, guarding, rebound, rigid, mass Extremities exam: Present: normal inspection, normal capillary refill. Absent: pedal edema, calf tenderness Back exam: Present: normal inspection. Absent: CVA tenderness (R), CVA tenderness (L) Neurological exam: Present: alert Skin exam: Present: warm, dry, intact, normal color. Absent: rash Course Vital Signs 07/25/21 07/26/21 23:16 04:22 Temperature 97.3 F L Pulse Rate 78 84 Respiratory 16 16 Rate Blood Pressure 101/48 102/62 O2 Sat by Pulse 98 95 Oximetry Medical Decision Making - Medical Decision Making Patient 80-year-old man presenting with hematuria and found to have elevated BUN/creatinine. Patient be admitted to have further evaluation and workup - Lab Data Result diagrams: 07/26/21 02:09 07/26/21 02:09 Lab Results 07/26/21 07/26/21 07/26/21 Range/Units 01:28 02:09 02:09 WBC 10.8 H (3.8-10.6) k/uL RBC 2.83 L (4.30-5.90) m/uL Hgb 8.7 L (13.0-17.5) gm/dL Hct 27.9 L (39.0-53.0) % MCV 98.6 (80.0-100.0) fL MCH 30.8 (25.0-35.0) pg MCHC 31.3 (31.0-37.0) g/dL RDW 13.8 (11.5-15.5) % Plt Count 239 (150-450) k/uL MPV 7.6 Neutrophils % 73 % Lymphocytes % 15 % Monocytes % 5 % Eosinophils % 5 % Basophils % 1 % Neutrophils # 7.9 H (1.3-7.7) k/uL Lymphocytes # 1.6 (1.0-4.8) k/uL Monocytes # 0.6 (0-1.0) k/uL Eosinophils # 0.5 (0-0.7) k/uL Basophils # 0.1 (0-0.2) k/uL Hypochromasia Slight Sodium 136 L (137-145) mmol/L Potassium 5.5 H (3.5-5.1) mmol/L Chloride 115 H (98-107) mmol/L Carbon Dioxide 8 L* (22-30) mmol/L Anion Gap 13 mmol/L BUN 133 H* (9-20) mg/dL Creatinine 4.83 H (0.66-1.25) mg/dL Est GFR (CKD-EPI)AfAm 12 (>60 ml/min/1.73 sqM) Est GFR (CKD-EPI)NonAf 11 (>60 ml/min/1.73 sqM) Glucose 218 H (74-99) mg/dL Osmolality (280-301) mosm/kg Calcium 8.8 (8.4-10.2) mg/dL Urine Color Dark Red Urine Appearance Turbid (Clear) Urine RBC >182 H (0-5) /hpf Urine WBC >182 H (0-5) /hpf Urine WBC Clumps Many H (None) /hpf Urine Bacteria Occasional H (None) /hpf Urine Yeast (Budding) Occasional H (None) /hpf 07/26/21 Range/Units 02:09 WBC (3.8-10.6) k/uL RBC (4.30-5.90) m/uL Hgb (13.0-17.5) gm/dL Hct (39.0-53.0) % MCV (80.0-100.0) fL MCH (25.0-35.0) pg MCHC (31.0-37.0) g/dL RDW (11.5-15.5) % Plt Count (150-450) k/uL MPV Neutrophils % % Lymphocytes % % Monocytes % % Eosinophils % % Basophils % % Neutrophils # (1.3-7.7) k/uL Lymphocytes # (1.0-4.8) k/uL Monocytes # (0-1.0) k/uL Eosinophils # (0-0.7) k/uL Basophils # (0-0.2) k/uL Hypochromasia Sodium (137-145) mmol/L Potassium (3.5-5.1) mmol/L Chloride (98-107) mmol/L Carbon Dioxide (22-30) mmol/L Anion Gap mmol/L BUN (9-20) mg/dL Creatinine (0.66-1.25) mg/dL Est GFR (CKD-EPI)AfAm (>60 ml/min/1.73 sqM) Est GFR (CKD-EPI)NonAf (>60 ml/min/1.73 sqM) Glucose (74-99) mg/dL Osmolality 338 H* (280-301) mosm/kg Calcium (8.4-10.2) mg/dL Urine Color Urine Appearance (Clear) Urine RBC (0-5) /hpf Urine WBC (0-5) /hpf Urine WBC Clumps (None) /hpf Urine Bacteria (None) /hpf Urine Yeast (Budding) (None) /hpf Disposition Clinical Impression: Hematuria, Acute renal failure, Dehydration Disposition: ADMITTED IP TO THIS HOSP Condition: Poor Is patient prescribed a controlled substance at d/c from ED?: No
[2021-07-26] MEDS ORDERED: SODIUM CHLORIDE 0.9% 500 ML 500 ML IV STA (08:14)
--- NOTE | 2021-07-26 09:27 | US ---
EXAMINATION TYPE: US kidneys/renal and bladder DATE OF EXAM: 07/26/2021 COMPARISON: CT dated 09/29/2020, US CLINICAL HISTORY: acute renal failure. Diabetic; renal stones per CT, hematuria EXAM MEASUREMENTS: Right Kidney: 9.4 x 5.7 x 5.5 cm Left Kidney: 10.8 x 5.0 x 5.8 cm Post Void Residual Volume: not assessed on inpatient Right Kidney: mild hydronephrosis ; cluster of cysts seen = 2.8 x 2.5 x 4.0cm Left Kidney: mild hydronephrosis; multiple, very small hyperechoic foci noted within kidney may be re nal calculi seen on CT; extracapsular, hypoechoic crescent shaped area noted mid lower pole suggests sonographic "sweat sign" indicating renal failure. Bladder: well distended, no masses seen Bilateral Jets seen: yes IMPRESSION: Dilated renal collecting system bilaterally, more on the right side. Distal obstructing ureteric calc devorah cannot be excluded. Both ureteric jets are seen. Left renal echogenic foci, likely representing a rterial calcifications appreciated on the previous CT scan. Further CT assessment can be considered.
[2021-07-26] MEDS ORDERED: SODIUM BICARB 8.4% 50 ML SYR (1 MEQ/ML) IV STA (10:13)
--- NOTE | 2021-07-26 10:21 | P.NPCON ---
History of Present Illness - Reason for Consult acute renal failure - History of Present Illness Reason for consultation: Acute kidney injury History of present illness: Patient is a 80-year-old male seen in renal consultation for acute kidney injury. Patient has chronic kidney disease stage IIIB with baseline creatinine near 1.5 from JuneSeptember 2020. Creatinine this admission was 4.83. Patient presented to the hospital due to hematuria. Patient states he noticed blood in his urine yesterday. He does admit to history of kidney stones. Patient states this morning his urine was clear. He did have abdominal discomfort which has not improved. Patient does follow with urology outpatient. He denies use of nonsteroidals. Patient does have long-standing history of diabetes. He admits to loose bowel movements. Denies vomiting. Oral intake has been poor the last few days. Patient isn't sure of his home medications. I do see Lasix as well as lisinopril and his home medication list but again the patient is not sure what he's been taking. He's currently on normal saline at 75 mL an hour. He is also on IV antibiotics. Renal ultrasound showed bilateral hydronephrosis. Vital signs are stable. General: Awake. Resting in bed. HEENT: Head exam is unremarkable. LUNGS: Breath sounds decreased. HEART: Rate and Rhythm are regular. ABDOMEN: Soft, no distention. EXTREMITITES: No edema. Chronic changes noted. Past Medical History Past Medical History: Asthma, Coronary Artery Disease (CAD), Cancer, Diabetes Mellitus, Hyperlipidemia, Hypertension, Thyroid Disorder Additional Past Medical History / Comment(s): ,bladder stones,and urinary infection and cellulitis kailyn legs,lymphoma, chemotherapy, radiation,- 06/2011, c olitis History of Any Multi-Drug Resistant Organisms: None Reported Past Surgical History: AICD, Coronary Bypass/CABG, Heart Catheterization With Stent, Orthopedic Surgery, Pacemaker Additional Past Surgical History / Comment(s): Lt ankle - plate. sinus surgery s/t cancer. CABG-4 vessels. pacemaker/defib. [facility] upper left chest Past Anesthesia/Blood Transfusion Reactions: No Reported Reaction Additional Past Anesthesia/Blood Transfusion Reaction / Comment(s): no probles with prior blood transfusion Date of Last Stent Placement:: 2001 Type of Cardiac Device: Permanent Pacemaker, AICD Device Placement Date:: 2001 Past Psychological History: No Psychological Hx Reported Smoking Status: Former smoker Past Alcohol Use History: None Reported Past Drug Use History: None Reported - Past Family History Brother(s) Additional Family Medical History / Comment(s): Patient has 3 brothers and one has history of coronary artery disease. Sister(s) Additional Family Medical History / Comment(s): Patient has one sister with history of SVT and AVR. Son(s) Additional Family Medical History / Comment(s): Patient has 2 sons and one has history of kidney stones. Patient does not have any daughters. Patient has a grandson treated for SVT. Father Family Medical History: No Reported History Additional Family Medical History / Comment(s): Father at age 72 with history of coronary artery disease and CABG Mother Family Medical History: No Reported History Additional Family Medical History / Comment(s): Mother at age 93 with history of coronary artery disease. Medications and Allergies Home Medications Medication Instructions Recorded Confirmed Type Insulin NPH Human Isophane 18 unit SQ AC-BRKFST 08/04/14 09/30/20 History [NovoLIN N] Insulin Regular, Human [NovoLIN R] See Protocol SQ BID 08/04/14 09/30/20 History Levothyroxine Sodium [Synthroid] 100 mcg PO DAILY 08/04/14 09/30/20 History glipiZIDE [Glucotrol XL] 5 mg PO DAILY 08/04/14 09/30/20 History Albuterol Nebulized [Ventolin 2.5 mg INHALATION RT-QID 11/05/16 09/30/20 History Nebulized] Ipratropium Nebulized [Atrovent 0.05 mg INHALATION RT-QID 11/05/16 09/30/20 History Nebulized 0.2 MG/ML] Vit C/E/Zn/Coppr/Lutein/Zeaxan 1 cap PO DAILY 04/22/18 09/30/20 History [Preservision Areds 2 Softgel] Insulin NPH Human Isophane See Protocol SQ AC-SUPPER 06/18/18 09/30/20 History [NovoLIN N] Albuterol Inhaler [Ventolin Hfa 1 puff INHALATION RT-QID 07/03/20 09/30/20 History Inhaler] Budesonide [Pulmicort] 0.5 mg INHALATION RT-BID 07/03/20 09/30/20 History Ferrous Sulfate [Iron (65 MG 325 mg PO DAILY 07/03/20 09/30/20 History Elemental)] Furosemide [Lasix] 120 mg PO DAILY 07/03/20 09/30/20 History Aspirin 81 mg PO DAILY chew 07/05/20 09/30/20 Rx Magnesium Oxide [Mag-Ox] 400 mg PO DAILY #30 tablet 07/05/20 09/30/20 Rx Metoprolol Tartrate [Lopressor] 50 mg PO BID #60 tab 07/05/20 09/30/20 Rx lisinopriL [Zestril] 5 mg PO BID #60 tab 07/05/20 09/30/20 Rx Atorvastatin [Lipitor] 80 mg PO HS 09/19/20 09/30/20 History Clopidogrel [Plavix] 75 mg PO DAILY 09/19/20 09/30/20 History Famotidine [Pepcid] 20 mg PO DAILY 09/19/20 09/30/20 History Dicyclomine [Bentyl] 10 mg PO QID #60 capsule 09/30/20 Rx Pantoprazole Sodium 40 mg PO DAILY #30 packet 09/30/20 Rx Potassium Chloride ER [K-Dur 20] 20 meq PO DAILY 09/30/20 09/30/20 History Allergies Allergy/AdvReac Type Severity Reaction Status Date / Time esmolol [From Brevibloc] Allergy "felt like Verified 07/25/21 23:21 I was going to pass out" Physical Exam Vitals: Vital Signs Temp Pulse Pulse Resp BP BP Pulse Ox 07/26/21 07:56 98 F 67 18 128/71 100 07/26/21 04:22 84 16 102/62 95 07/25/21 23:16 97.3 F L 78 16 101/48 98 Intake and Output 07/25/21 07/26/21 07/26/21 22:59 06:59 14:59 Other: Weight 100.244 kg Results - Lab Results Most recent lab results Calcium 8.8 mg/dL (8.4-10.2) 07/26/21 02:09 07/26/21 02:09 07/26/21 02:09 Assessment and Plan Plan: Assessment: 1. Acute kidney injury secondary to ATN secondary to hypotension and obstructive uropathy. Bilateral hydronephrosis noted on kidney ultrasound. Creatinine 4.83 today. 2. Chronic kidney disease stage IIIB with baseline creatinine near 1.5 secondary to diabetic kidney disease. 3. Metabolic acidosis secondary to acute kidney injury and GI losses. 4. Diabetes mellitus. 5. History of kidney/bladder stones. 6. Hypertension with chronic kidney disease. Blood pressure on the lower side. 7. Anemia of chronic kidney disease. Rule out iron deficiency. Plan: Change IV fluids to sodium bicarbonate drip to be run at 75 mL an hour. Hold antihypertensives. Follow-up cultures. Mcgovern catheter will be inserted. Urology consulted. Check iron studies. Continue to monitor renal function and urine output. 2 A of sodium bicarb IV push now. Thank you for the consultation. I will continue to follow the patient with you during his hospital stay.
[2021-07-26] MEDS ORDERED: ALBUTEROL NEBULIZED 2.5 MG/3 ML INHALATION PRN (13:14)
--- NOTE | 2021-07-26 13:14 | P.HPIM ---
History of Present Illness H&P Date: 07/26/21 80 years old male with past medical history of asthma, COPD, history of ulcerative colitis coronary artery disease status post stent CABG in 2001 history of sick sinus syndrome status post pacemaker in 2001, diabetes type 2, hyperlipidemia, hypertension, thyroid disease, history of lymphoma status post chemoradiation, history of coronary artery bypass, with pacemaker and defibrillator, history of bladder stones in 2017 comes in with acute onset of hematuria that started yesterday night. Patient has been noticing increased frequency of urination with the arm decreased output. He also endorses of abdominal discomfort and flank pain. He does have chronic kidney disease stage III with baseline and he needed 1.5. He on ER evaluation the patient was noted to have a creatinine of 4.83. He had 3 episode of hematuria and cleared this morning. Patient has history of bladder stones and has seen Dr. Merritt in the past. Vital signs stable afebrile pulse 61 and respiratory rate 18 blood pressure 132/65 mL 10.8 hemoglobin 8.7 platelets 239, sodium 136 potassium 5.5 chloride 115, bicarbonate BUN 133 creatinine 4.83 glucose 218. Urinalysis RBC more than 182 WBC 182 WBC clumps many urine osmolarity 316, seated serum osmolality 338. She initially on Rocephin and IV fluids. Nephrology and urology consult placed ROS Constitutional: Denies chills, Denies fever, Denies lethargy, Denies malaise, Denies poor appetite, Denies weakness, Denies weight loss Eyes: denies decreased vision, denies diplopia, denies discharge, denies pain Ears: deny: decreased hearing Ears, nose, mouth and throat: Denies dental pain, Denies headache, Denies nasal discharge, Denies nose pain Cardiovascular: Denies chest pain, Denies decreased exercise tolerance, Denies edema, Denies high blood pressure, Denies irregular heart beat, Denies palpitations, Denies paroxysmal nocturnal dyspnea, Denies rapid heart beat, Denies shortness of breath Respiratory: Denies congestion, Denies cough, Denies cough with sputum, Denies dyspnea, Denies home oxygen, Denies wheezing Gastrointestinal: Endorses abdominal pain, Denies change in bowel habits, Denies coffee ground emesis, Denies early satiety, Denies excessive gas, Denies heartburn, Denies hematemesis, Denies hematochezia, Denies loss of appetite, Denies nausea, Denies vomiting Genitourinary: Denies dysuria, endorses flank pain, endorses kidney stones, Denies menorrhagia, endorses urgency, endorses urinary frequency Musculoskeletal: Denies gait dysfunction, Denies limitation of motion, Denies morning stiffness, Denies muscle cramps Integumentary: Denies rash, Denies wounds, Denies brittle nails, Denies change in hair/nails, Denies darkening of skin Neurological: Denies balance difficulties, Denies change in speech, Denies double vision, Denies gait dysfunction, Denies loss of vision, Denies motor disturbance, Denies numbness, Denies paralysis, Denies paresthesias, Denies seizures Psychiatric: Denies anxiety, Denies depression Endocrine: Denies excessive sweating, Denies excessive thirst, Denies high blood sugars, Denies palpitations Hematologic/Lymphatic: Denies easy bruising, Denies lymphadenopathy Social history Former smoker nondrinker quit smoking 1968 Family history Patient 3 brothers one has coronary artery disease one sister with history of SVT and AVR Patient is to sign one has history of kidney disease father at 72 from coronary artery disease mother at 93 with history of coronary artery disease Physical exam - Constitutional General appearance: cooperative, no acute distress,fraill looking - EENT Eyes: anicteric sclerae, PERRLA, normal appearance ENT: hearing grossly normal - Neck Neck: no lymphadenopathy, normal ROM, no other, no rigidity, no stridor, no thyromegaly - Respiratory Respiratory: bilateral: CTA, negative: diminished, dullness, rales, rhonchi - Cardiovascular Rhythm: regular Heart sounds: normal: S1, S2 Abnormal Heart Sounds:3/6 systolicr, no diastolic murmur, no rub, no S3 Gallop, no S4 Gallop, no click, no other - Gastrointestinal General gastrointestinal: normal bowel sounds, soft Mild tenderness in the supraclavicular area no flank tenderness - Integumentary Integumentary: no rash - Neurologic Neurologic:No gross motor or sensory deficitt - Musculoskeletal Musculoskeletal: gait normal, strength equal bilaterally - Psychiatric Psychiatric: A&O x's 3, appropriate affect Assessment and plan #1 Acute hematuria with history of kidney stones. Urology consult continue IV fluids at 75 mL per hour every 40 catheter placed. Renal ultrasound ordered #2 acute kidney injury on chronic kidney disease rule out obstructive uropathy Baseline creatinine 1.5, and creatinine 4.8 continue IV fluids at 75 mL per hour nephrology consult placed Mcgovern catheter placed renal ultrasound is pending hold Lasix #3. Coronary artery disease status post times CABG 1999 to continue Plavix continue metoprolol 50 by mouth daily #4. BPH. Flomax 0.4 mg daily #5. Chronic diastolic congestive heart failure hold Lasix #6. Hypertension. Hold Lasix 120 mg daily, hold lisinopril continue Lopressor 50 g twice daily #7. Diabetes mellitus. Hold glipizide on NPH 8 units twice a day Continue insulin sliding scale. Monitor glucose before meals and at bedtime. #8 COPD. Continue DuoNeb as needed #9 Hypothyroid. Levothyroxine 100 g by mouth daily #10. Constipation MiraLAX 17 g by mouth daily #11. GI prophylaxis. Pepcid 20 mg by mouth #12 Colitis ulcerative? Patient was told he has ulcerative colitis denies any recent colonoscopy. We'll follow up with Dr. Carrizales as outpatient. Dicyclomine ordered for cramping #13. DVT prophylaxis. Heparin 5000 units subcu every 12h. #14. Disposition patient need 1-2 inpatient stay was stabilized Past Medical History Past Medical History: Asthma, Coronary Artery Disease (CAD), Cancer, Diabetes Mellitus, Hyperlipidemia, Hypertension, Thyroid Disorder Additional Past Medical History / Comment(s): ,bladder stones,and urinary infection and cellulitis kailyn legs,lymphoma, chemotherapy, radiation,- 06/2011, colitis History of Any Multi-Drug Resistant Organisms: None Reported Past Surgical History: AICD, Coronary Bypass/CABG, Heart Catheterization With Stent, Orthopedic Surgery, Pacemaker Additional Past Surgical History / Comment(s): Lt ankle - plate. sinus surgery s/t cancer. CABG-4 vessels. pacemaker/defib. [facility] upper left chest Past Anesthesia/Blood Transfusion Reactions: No Reported Reaction Additional Past Anesthesia/Blood Transfusion Reaction / Comment(s): no probles with prior blood transfusion Date of Last Stent Placement:: 2001 Type of Cardiac Device: Permanent Pacemaker, AICD Device Placement Date:: 2001 Past Psychological History: No Psychological Hx Reported Smoking Status: Former smoker Past Alcohol Use History: None Reported Past Drug Use History: None Reported - Past Family History Brother(s) Additional Family Medical History / Comment(s): Patient has 3 brothers and one has history of coronary artery disease. Sister(s) Additional Family Medical History / Comment(s): Patient has one sister with history of SVT and AVR. Son(s) Additional Family Medical History / Comment(s): Patient has 2 sons and one has history of kidney stones. Patient does not have any daughters. Patient has a grandson treated for SVT. Father Family Medical History: No Reported History Additional Family Medical History / Comment(s): Father at age 72 with history of coronary artery disease and CABG Mother Family Medical History: No Reported History Additional Family Medical History / Comment(s): Mother at age 93 with history of coronary artery disease. Medications and Allergies Home Medications Medication Instructions Recorded Confirmed Type Insulin Regular, Human [NovoLIN R] See Protocol SQ BID 08/04/14 07/26/21 History Levothyroxine Sodium [Synthroid] 100 mcg PO DAILY 08/04/14 07/26/21 History glipiZIDE [Glucotrol XL] 5 mg PO DAILY 08/04/14 07/26/21 History Albuterol Nebulized [Ventolin 2.5 mg INHALATION RT-QID 11/05/16 07/26/21 History Nebulized] Ipratropium Nebulized [Atrovent 0.5 mg INHALATION RT-QID 11/05/16 07/26/21 History Nebulized 0.2 MG/ML] Vit C/E/Zn/Coppr/Lutein/Zeaxan 1 cap PO BID 04/22/18 07/26/21 History [Preservision Areds 2 Softgel] Insulin NPH Human Isophane 8 unit SQ AC-BID 06/18/18 07/26/21 History [NovoLIN N] Albuterol Inhaler [Ventolin Hfa 2 puff INHALATION RT-QID PRN 07/03/20 07/26/21 History Inhaler] Ferrous Sulfate [Iron (65 MG 325 mg PO DAILY 07/03/20 07/26/21 History Elemental)] Magnesium Oxide [Mag-Ox] 400 mg PO DAILY #30 tablet 07/05/20 07/26/21 Rx Clopidogrel [Plavix] 75 mg PO DAILY 09/19/20 07/26/21 History Famotidine [Pepcid] 20 mg PO DAILY 09/19/20 07/26/21 History Metoprolol Succinate (ER) [Toprol 50 mg PO DAILY 07/26/21 07/26/21 History Xl] Allergies Allergy/AdvReac Type Severity Reaction Status Date / Time esmolol [From Brevibloc] AdvReac "felt like Verified 07/26/21 11:04 I was going to pass out" Physical Exam Vitals: Vital Signs Temp Pulse Pulse Resp BP BP Pulse Ox 07/26/21 07:56 98 F 67 18 128/71 100 07/26/21 05:20 69 16 103/52 98 07/26/21 04:22 84 16 102/62 95 07/25/21 23:16 97.3 F L 78 16 101/48 98 Intake and Output 07/25/21 07/26/21 07/26/21 22:59 06:59 14:59 Other: Voiding Method Indwelling Catheter Weight 100.244 kg Results CBC & Chem 7: 07/26/21 02:09 07/26/21 02:09 Labs: Abnormal Lab Results - Last 24 Hours (Table) 07/26/21 07/26/21 07/26/21 Range/Units 01:28 02:09 02:09 WBC 10.8 H (3.8-10.6) k/uL RBC 2.83 L (4.30-5.90) m/uL Hgb 8.7 L (13.0-17.5) gm/dL Hct 27.9 L (39.0-53.0) % Neutrophils # 7.9 H (1.3-7.7) k/uL Sodium 136 L (137-145) mmol/L Potassium 5.5 H (3.5-5.1) mmol/L Chloride 115 H (98-107) mmol/L Carbon Dioxide 8 L* (22-30) mmol/L BUN 133 H* (9-20) mg/dL Creatinine 4.83 H (0.66-1.25) mg/dL Glucose 218 H (74-99) mg/dL Osmolality (280-301) mosm/kg Urine RBC >182 H (0-5) /hpf Urine WBC >182 H (0-5) /hpf Urine WBC Clumps Many H (None) /hpf Urine Bacteria Occasional H (None) /hpf Urine Yeast (Budding) Occasional H (None) /hpf 07/26/21 Range/Units 02:09 WBC (3.8-10.6) k/uL RBC (4.30-5.90) m/uL Hgb (13.0-17.5) gm/dL Hct (39.0-53.0) % Neutrophils # (1.3-7.7) k/uL Sodium (137-145) mmol/L Potassium (3.5-5.1) mmol/L Chloride (98-107) mmol/L Carbon Dioxide (22-30) mmol/L BUN (9-20) mg/dL Creatinine (0.66-1.25) mg/dL Glucose (74-99) mg/dL Osmolality 338 H* (280-301) mosm/kg Urine RBC (0-5) /hpf Urine WBC (0-5) /hpf Urine WBC Clumps (None) /hpf Urine Bacteria (None) /hpf Urine Yeast (Budding) (None) /hpf Microbiology - Last 24 Hours (Table) 07/26/21 05:37 Urine Culture - Preliminary Urine,Clean Catch Thrombosis Risk Factor Assmnt - Choose All That Apply Any of the Below Risk Factors Present?: Yes Each Factor Represents 1 point: Abnormal pulmonary function (COPD) Other Risk Factors: Yes Each Risk Factor Represents 2 Points: Malignancy Each Risk Factor Represents 3 Points: Age 75 years or older Other congenital or acquired thrombophilia - If yes, enter type in comment: No Thrombosis Risk Factor Assessment Total Risk Factor Score: 6 Thrombosis Risk Factor Assessment Level: High Risk
[2021-07-26] MEDS: DEXTROSE 5% IN WATER 1,000 ML with SODIUM BICARB (1 MEQ/ML) 150 ML IV SCH (15:07)
[2021-07-26] MEDS: ALBUTEROL NEBULIZED 2.5 MG/3 ML INHALATION SCH ×2 (15:18→19:27)
[2021-07-26] MEDS: IPRATROPIUM 0.5 MG/2.5 ML NEBU INHALATION SCH ×2 (15:18→19:27)
[2021-07-26 16:27] LABS: % Iron Saturation 18.17 (15.00-50.00)
[2021-07-26] MEDS: INSULIN NPH 300 UNIT/3 ML VIAL SQ SCH (18:03)
[2021-07-26 18:11] LABS: Glucose,Whole Blood 202 mg/dL (75-99)
--- NOTE | 2021-07-26 18:35 | P.GSCN ---
History of Present Illness Consult date: 07/26/21 Reason for Consult: Gross hematuria Requesting physician: Mar Bernal History of present illness: The patient is a 80-year-old white male well known to Dr. Márquez. He underwent a TURP in May 2018. A bladder calculus was removed at that time. He was last seen by Dr. Márquez in December 2018. He now presents with gross hematuria which began yesterday evening. He has also experienced dysuria and urgency. He serina es flank pain. Renal ultrasound shows bilateral mild hydronephrosis. Review of Systems - Constitutional Denies chills, Denies fever - Cardiovascular Denies chest pain - Respiratory Denies dyspnea - Gastrointestinal Denies nausea, Denies vomiting - Genitourinary Reports as per HPI Past Medical History Past Medical History: Asthma, Coronary Artery Disease (CAD), Cancer, Diabetes Mellitus, Hyperlipidemia, Hypertension, Thyroid Disorder Additional Past Medical History / Comment(s): ,bladder stones,and urinary infection and cellulitis kailyn legs,lymphoma, chemotherapy, radiation,- 06/2011, colitis History of Any Multi-Drug Resistant Organisms: None Reported Past Surgical History: AICD, Coronary Bypass/CABG, Heart Catheterization With Stent, Orthopedic Surgery, Pacemaker Additional Past Surgical History / Comment(s): Lt ankle - plate. sinus surgery s/t cancer. CABG-4 vessels. pacemaker/defib. [facility] upper left chest Past Anesthesia/Blood Transfusion Reactions: No Reported Reaction Additional Past Anesthesia/Blood Transfusion Reaction / Comm: no probles with prior blood transfusion Date of Last Stent Placement:: 2001 Type of Cardiac Device: Permanent Pacemaker, AICD Device Placement Date:: 2001 Past Psychological History: No Psychological Hx Reported Smoking Status: Former smoker Past Alcohol Use History: None Reported Past Drug Use History: None Reported - Past Family History Brother(s) Additional Family Medical History / Comment(s): Patient has 3 brothers and one has history of coronary artery disease. Sister(s) Additional Family Medical History / Comment(s): Patient has one sister with history of SVT and AVR. Son(s) Additional Family Medical History / Comment(s): Patient has 2 sons and one has history of kidney stones. Patient does not have any daughters. Patient has a grandson treated for SVT. Father Family Medical History: No Reported History Additional Family Medical History / Comment(s): Father at age 72 with history of coronary artery disease and CABG Mother Family Medical History: No Reported History Additional Family Medical History / Comment(s): Mother at age 93 with history of coronary artery disease. Medications and Allergies Home Medications Medication Instructions Recorded Confirmed Type Insulin Regular, Human [NovoLIN R] See Protocol SQ BID 08/04/14 07/26/21 History Levothyroxine Sodium [Synthroid] 100 mcg PO DAILY 08/04/14 07/26/21 History glipiZIDE [Glucotrol XL] 5 mg PO DAILY 08/04/14 07/26/21 History Albuterol Nebulized [Ventolin 2.5 mg INHALATION RT-QID 11/05/16 07/26/21 History Nebulized] Ipratropium Nebulized [Atrovent 0.5 mg INHALATION RT-QID 11/05/16 07/26/21 History Nebulized 0.2 MG/ML] Vit C/E/Zn/Coppr/Lutein/Zeaxan 1 cap PO BID 04/22/18 07/26/21 History [Preservision Areds 2 Softgel] Insulin NPH Human Isophane 8 unit SQ AC-BID 06/18/18 07/26/21 History [NovoLIN N] Albuterol Inhaler [Ventolin Hfa 2 puff INHALATION RT-QID PRN 07/03/20 07/26/21 History Inhaler] Ferrous Sulfate [Iron (65 MG 325 mg PO DAILY 07/03/20 07/26/21 History Elemental)] Magnesium Oxide [Mag-Ox] 400 mg PO DAILY #30 tablet 07/05/20 07/26/21 Rx Clopidogrel [Plavix] 75 mg PO DAILY 09/19/20 07/26/21 History Famotidine [Pepcid] 20 mg PO DAILY 09/19/20 07/26/21 History Metoprolol Succinate (ER) [Toprol 50 mg PO DAILY 07/26/21 07/26/21 History Xl] Allergies Allergy/AdvReac Type Severity Reaction Status Date / Time esmolol [From Brevibloc] AdvReac "felt like Verified 07/26/21 11:04 I was going to pass out" Surgical - Exam Vital Signs Temp Pulse Resp BP Pulse Ox 97.3 F L 78 16 101/48 98 07/25/21 23:16 07/25/21 23:16 07/25/21 23:16 07/25/21 23:16 07/25/21 23:16 - General well developed, well nourished, no distress - Neck no masses, trachea midline - Respiratory normal respiratory effort - Abdomen Abdomen: soft, non tender, no guarding, no rigid, no rebound - Genitourinary normal penis with no external lesions, testicles non-tender - Rectum Rectum: normal sphincter tone, no masses, other (prostate mildly enlarged and smooth) - Psychiatric oriented to time, oriented to person, oriented to place, speech is normal, memory intact Results - Labs 07/26/21 02:09 07/26/21 02:09 Abnormal Lab Results - Last 24 Hours (Table) 07/26/21 07/26/21 07/26/21 Range/Units 01:28 02:09 02:09 WBC 10.8 H (3.8-10.6) k/uL RBC 2.83 L (4.30-5.90) m/uL Hgb 8.7 L (13.0-17.5) gm/dL Hct 27.9 L (39.0-53.0) % Neutrophils # 7.9 H (1.3-7.7) k/uL Sodium 136 L (137-145) mmol/L Potassium 5.5 H (3.5-5.1) mmol/L Chloride 115 H (98-107) mmol/L Carbon Dioxide 8 L* (22-30) mmol/L BUN 133 H* (9-20) mg/dL Creatinine 4.83 H (0.66-1.25) mg/dL Glucose 218 H (74-99) mg/dL Osmolality (280-301) mosm/kg Iron (65-175) ug/dL TIBC (228-460) ug/dL Transferrin (204.0-354.0) mg/dL Ferritin (22.0-322.0) ng/mL Urine RBC >182 H (0-5) /hpf Urine WBC >182 H (0-5) /hpf Urine WBC Clumps Many H (None) /hpf Urine Bacteria Occasional H (None) /hpf Urine Yeast (Budding) Occasional H (None) /hpf 07/26/21 07/26/21 Range/Units 02:09 02:09 WBC (3.8-10.6) k/uL RBC (4.30-5.90) m/uL Hgb (13.0-17.5) gm/dL Hct (39.0-53.0) % Neutrophils # (1.3-7.7) k/uL Sodium (137-145) mmol/L Potassium (3.5-5.1) mmol/L Chloride (98-107) mmol/L Carbon Dioxide (22-30) mmol/L BUN (9-20) mg/dL Creatinine (0.66-1.25) mg/dL Glucose (74-99) mg/dL Osmolality 338 H* (280-301) mosm/kg Iron 41 L (65-175) ug/dL TIBC 224 L (228-460) ug/dL Transferrin 160.0 L (204.0-354.0) mg/dL Ferritin 570.0 H (22.0-322.0) ng/mL Urine RBC (0-5) /hpf Urine WBC (0-5) /hpf Urine WBC Clumps (None) /hpf Urine Bacteria (None) /hpf Urine Yeast (Budding) (None) /hpf Microbiology - Last 24 Hours (Table) 07/26/21 05:37 Urine Culture - Preliminary Urine,Clean Catch Diabetes panel 07/26/21 Range/Units 02:09 Sodium 136 L (137-145) mmol/L Potassium 5.5 H (3.5-5.1) mmol/L Chloride 115 H (98-107) mmol/L Carbon Dioxide 8 L* (22-30) mmol/L BUN 133 H* (9-20) mg/dL Creatinine 4.83 H (0.66-1.25) mg/dL Glucose 218 H (74-99) mg/dL Calcium 8.8 (8.4-10.2) mg/dL Calcium panel 07/26/21 Range/Units 02:09 Calcium 8.8 (8.4-10.2) mg/dL Pituitary panel 07/26/21 Range/Units 02:09 Sodium 136 L (137-145) mmol/L Potassium 5.5 H (3.5-5.1) mmol/L Chloride 115 H (98-107) mmol/L Carbon Dioxide 8 L* (22-30) mmol/L BUN 133 H* (9-20) mg/dL Creatinine 4.83 H (0.66-1.25) mg/dL Glucose 218 H (74-99) mg/dL Calcium 8.8 (8.4-10.2) mg/dL Adrenal panel 07/26/21 Range/Units 02:09 Sodium 136 L (137-145) mmol/L Potassium 5.5 H (3.5-5.1) mmol/L Chloride 115 H (98-107) mmol/L Carbon Dioxide 8 L* (22-30) mmol/L BUN 133 H* (9-20) mg/dL Creatinine 4.83 H (0.66-1.25) mg/dL Glucose 218 H (74-99) mg/dL Calcium 8.8 (8.4-10.2) mg/dL - Imaging US - kidney/bladder: report reviewed Assessment and Plan (1) Gross hematuria Current Visit: Yes Status: Acute Code(s): R31.0 - GROSS HEMATURIA SNOMED Code(s): 948699008 Plan: The patient presents with gross hematuria, associated with dysuria and urgency. His postvoid residual was approximately 400 mL, so a Mcgovern catheter was placed. His symptoms could be due to a calculus at the ureterovesical junction, or a UTI. A urine culture is pending. In the meantime, he is receiving ceftriaxone. In view of the bilateral hydronephrosis, I have ordered a CT scan for further evaluation. Time with Patient: Greater than 30
--- NOTE | 2021-07-26 20:41 | CT ---
EXAMINATION TYPE: CT abdomen pelvis wo con DATE OF EXAM: 07/26/2021 COMPARISON: 09/29/2020 HISTORY: hematuria CT DLP: 568.1 mGycm Automated exposure control for dose reduction was used. Images obtained from the diaphragm to the floor of the pelvis with no contrast. There is some mild atelectasis right posterior lung base. There is no pleural effusion. Heart size is normal. There is no pericardial effusion. There multiple cholesterol gallstones. There are multiple air bubbles in the gallstones. Liver is intact. Spleen is intact. There is no evidence of pancreatic mass. There is pancreatic atrop hy. The stomach is intact. There is no adrenal mass. Kidneys have normal size. There is left-sided hydronephrosis and hydrourete r. No ureteral calculus seen. There is no retroperitoneal adenopathy. There is some fat stranding festus und both kidneys and more on the left side. There is a 4 cm cortical cyst lower pole right kidney. There is normal appendix. Urinary bladder is empty. There is Mcgovern catheter in the urinary bladder. T here is no inguinal hernia. There is no evidence of a pelvic mass. There is 2 cm umbilical hernia con tains fat. There is no mesenteric edema. There is no ascites or free air. There is no bowel obstruction. The lum bar vertebra show evidence first-degree L5-S1 spondylolisthesis. There is no compression fracture. Th ere is bilateral L5 spondylolysis. Bony pelvis is intact. The hip joints are intact. IMPRESSION: There is some fat stranding and mild hydronephrosis on the left side with hydroureter. No ureteral ca lculus seen. This could relate to nonopaque stone or recently passed stone. Abnormalities appear esse ntially new compared to the old exam. Normal appendix. There is some atelectasis right posterior lung base which is mostly new compared to old exam.
[2021-07-26] MEDS: VIT A,C & E-LUTEIN-MINERALS 1 EACH TAB PO SCH (20:59)
[2021-07-26] MEDS: ACETAMINOPHEN TAB 325 MG TAB PO PRN (20:59)
[2021-07-26 21:58] LABS: Potassium,Urine Random 18.5 mmol/L (25.0-125.0)
[2021-07-27] MEDS: LEVOTHYROXINE 100 MCG TAB PO SCH (05:52)
[2021-07-27] MEDS: DEXTROSE 5% IN WATER 1,000 ML with SODIUM BICARB (1 MEQ/ML) 150 ML IV SCH (05:52)
[2021-07-27] MEDS: IPRATROPIUM-ALBUTEROL 3 ML NEB INHALATION SCH ×4 (07:17→19:41)
[2021-07-27 07:37] LABS: Glucose,Whole Blood 225 mg/dL (75-99)
[2021-07-27] MEDS: METOPROLOL SUCCINATE (ER) 50 MG TAB.ER.24H PO SCH (08:21)
[2021-07-27] MEDS: MAGNESIUM OXIDE 400 MG TAB PO SCH (08:22)
[2021-07-27] MEDS: FAMOTIDINE 20 MG TAB PO SCH (08:22)
[2021-07-27] MEDS: INSULIN NPH 300 UNIT/3 ML VIAL SQ SCH ×2 (08:22→17:40)
[2021-07-27] MEDS: CLOPIDOGREL 75 MG TAB PO SCH (08:22)
[2021-07-27] MEDS: VIT A,C & E-LUTEIN-MINERALS 1 EACH TAB PO SCH ×2 (08:22→20:52)
[2021-07-27] MEDS: ACETAMINOPHEN TAB 325 MG TAB PO PRN ×2 (08:27→20:52)
[2021-07-27] MEDS ORDERED: FERROUS SULFATE 325 MG TAB PO SCH (09:00)
--- NOTE | 2021-07-27 09:37 | P.PN ---
Subjective Patient is seen in follow-up for acute kidney injury. Patient has chronic kidney disease stage IIIB with baseline creatinine near 1.5 from June and September 2020. Morning labs pending. Has a Mcgovern catheter. Nonoliguric. On bicarb drip. Feels better today. Denies chest pain or shortness of breath. Hemodynamically stable. Vital signs are stable. General: The patient appeared well nourished and normally developed. HEENT: Head exam is unremarkable. LUNGS: Breath sounds decreased. HEART: Rate and Rhythm are regular. ABDOMEN: Soft, no distention. EXTREMITITES: No edema. Objective - Vital Signs Vital signs: Vital Signs Temp 98.4 F 07/27/21 04:17 Pulse 71 07/27/21 08:25 Resp 18 07/27/21 04:17 BP 119/54 07/27/21 08:25 Pulse Ox 96 07/27/21 04:17 Intake & Output 07/26/21 07/27/21 07/27/21 18:59 06:59 18:59 Intake Total 200 900 Output Total 600 1000 Balance -400 -100 Intake: Intake, IV Titration 900 Amount Dextrose 5% in Water 1, 900 000 ml @ 75 mls/hr IV . [id number] MELISA with Sodium Bicarb (1 Meq/ml) 150 ml Rx#:[id number] Oral 200 Output: Urine 600 1000 Other: Voiding Method Indwelling Catheter Indwelling Catheter - Labs CBC & Chem 7: 07/26/21 02:09 07/26/21 02:09 Labs: Abnormal Lab Results - Last 24 Hours (Table) 07/26/21 07/26/21 07/26/21 Range/Units 02:09 05:37 18:02 POC Glucose (mg/dL) 202 H (75-99) mg/dL Iron 41 L (65-175) ug/dL TIBC 224 L (228-460) ug/dL Transferrin 160.0 L (204.0-354.0) mg/dL Ferritin 570.0 H (22.0-322.0) ng/mL Ur Random Potassium 18.5 L (25.0-125.0) mmol/L 07/27/21 Range/Units 07:36 POC Glucose (mg/dL) 225 H (75-99) mg/dL Iron (65-175) ug/dL TIBC (228-460) ug/dL Transferrin (204.0-354.0) mg/dL Ferritin (22.0-322.0) ng/mL Ur Random Potassium (25.0-125.0) mmol/L Microbiology - Last 24 Hours (Table) 07/26/21 05:37 Urine Culture - Preliminary Urine,Clean Catch Assessment and Plan Plan: Assessment: 1. Acute kidney injury secondary to ATN secondary to hypotension and obstructive uropathy. Bilateral hydronephrosis noted on kidney ultrasound. Creatinine 4.83 on admission. 2. Chronic kidney disease stage IIIB with baseline creatinine near 1.5 secondary to diabetic kidney disease. 3. Metabolic acidosis secondary to acute kidney injury and GI losses. On bic arb drip. 4. Diabetes mellitus. 5. History of kidney/bladder stones. 6. Hypertension with chronic kidney disease. Stable. On the lower side. 7. Anemia of chronic kidney disease. Iron deficiency noted. 8. Bilateral hydronephrosis. Urology following. CAT scan showed fat stranding and mild hydronephrosis on the left side. 9. History of coronary artery disease status post CABG. Plan: Maintain bicarb drip at 75 mL an hour. Follow-up cultures. Add IV iron. Continue to monitor renal function and urine output. Follow-up morning labs.
[2021-07-27] MEDS: SODIUM FERRIC GLUCONAT-SUCROSE 125 MG in SODIUM CHLORIDE 0.9% 100 ML IVPB SCH (10:18)
[2021-07-27 11:26] LABS: Glucose,Whole Blood 261 mg/dL (75-99)
[2021-07-27 11:51] LABS: African American GFR (CKD) 19.5 (60.0-200.0); Anion Gap 12.5 mmol/L (10.00-18.00); BUN/Creat Ratio 27.88 Ratio (12.00-20.00); Calcium 8.5 mg/dL (8.7-10.3); Carbon Dioxide 15.5 mmol/L (20.0-27.5); Non-African American GFR(CKD) 16.8 (60.0-200.0); Potassium 4.3 mmol/L (3.5-5.5)
[2021-07-27 11:52] LABS: Magnesium 2.3 mg/dL (1.5-2.4)
--- NOTE | 2021-07-27 12:28 | P.PN ---
Subjective Progress Note Date: 07/27/21 80 years old male with past medical history of asthma, COPD, history of ulcerative colitis coronary artery disease status post stent CABG in 2001 history of sick sinus syndrome status post pacemaker in 2001, diabetes type 2, hyperlipidemia, hypertension, thyroid disease, history of lymphoma status post chemoradiation, history of coronary artery bypass, with pacemaker and defibrillator, history of bladder stones in 2017 comes in with acute onset of hematuria that started yesterday night. Patient has been noticing increased frequency of urination with the arm decreased output. He also endorses of abdominal discomfort and flank pain. He does have chronic kidney disease stage III with baseline and he needed 1.5. He on ER evaluation the patient was noted to have a creatinine of 4.83. He had 3 episode of hematuria and cleared this morning. Patient has history of bladder stones and has seen Dr. Merritt in the past. Vital signs stable afebrile pulse 61 and respiratory rate 18 blood pressure 132/65 mL 10.8 hemoglobin 8.7 platelets 239, sodium 136 potassium 5.5 chloride 115, bicarbonate BUN 133 creatinine 4.83 glucose 218. Urinalysis RBC more than 182 WBC 182 WBC clumps many urine osmolarity 316, seated serum osmolality 338. She initially on Rocephin and IV fluids. Nephrology and urology consult placed 07/27: Patient is found sitting up in bed resting comfortably with no complaints. Patient has no acute distress. Indwelling catheter is in place to clear dependent urine. Patient did have a CAT scan of abdomen and pelvis without contrast. Impression: There is some fat stranding and mild hydronephrosis on the left side with hydroureter. No ureteral calculus. Patient is afebrile, heart rate 70, blood pressure 119/54 pulse ox 93% on room air. Potassium 4.3, BUN 92, creatinine 3.3 magnesium 2.3 ROS Constitutional: Denies chills, Denies fever, Denies lethargy, Denies malaise, Denies poor appetite, Denies weakness, Denies weight loss Eyes: denies decreased vision, denies diplopia, denies discharge, denies pain Ears: deny: decreased hearing Ears, nose, mouth and throat: Denies dental pain, Denies headache, Denies nasal discharge, Denies nose pain Cardiovascular: Denies chest pain, Denies decreased exercise tolerance, Denies edema, Denies high blood pressure, Denies irregular heart beat, Denies palpitations, Denies paroxysmal nocturnal dyspnea, Denies rapid heart beat, Denies shortness of breath Respiratory: Denies congestion, Denies cough, Denies cough with sputum, Denies dyspnea, Denies home oxygen, Denies wheezing Gastrointestinal: Endorses abdominal pain, Denies change in bowel habits, Denies coffee ground emesis, Denies early satiety, Denies excessive gas, Denies heartburn, Denies hematemesis, Denies hematochezia, Denies loss of appetite, Denies nausea, Denies vomiting Genitourinary: Denies dysuria, endorses flank pain, endorses kidney stones, Denies menorrhagia, endorses urgency, endorses urinary frequency Musculoskeletal: Denies gait dysfunction, Denies limitation of motion, Denies morning stiffness, Denies muscle cramps Integumentary: Denies rash, Denies wounds, Denies brittle nails, Denies change in hair/nails, Denies darkening of skin Neurological: Denies balance difficulties, Denies change in speech, Denies double vision, Denies gait dysfunction, Denies loss of vision, Denies motor disturbance, Denies numbness, Denies paralysis, Denies paresthesias, Denies seizures Psychiatric: Denies anxiety, Denies depression Endocrine: Denies excessive sweating, Denies excessive thirst, Denies high blood sugars, Denies palpitations Hematologic/Lymphatic: Denies easy bruising, Denies lymphadenopathy Physical exam General Appearance: Alert, cooperative, no distress, 80-year-old appears stated age. Appears frail Neck HEENT: Supple, no lymphadenopathy, no thyroid enlargement, no carotid bruits. Lungs: Clear to auscultation without crackles or wheezes no rhonchi, no deformity. Chest Wall: Chest wall normal expansion with deep inspiration no tenderness and no deformity was found on exam, no costochondral pain or discomfort. Heart: Regular rate and rhythm, S1, S2 normal,3/6 systolic murmur, no diastolic murmur, no rub no S3 or S4 gallop, no click Back: Symmetric, no curvature, ROM normal, no CVA tenderness. Abdomen: Soft, mild tenderness in the suprapubic area, no flank tenderness, no rebound or rigidity, no hepatosplenomegaly. Extremities: Extremities normal, atraumatic, no cyanosis or edema. Pulses: 2+ and symmetric. Skin: Skin color, texture, tugor normal, no rashes or lesions. Neurologic: Alert oriented x3 cranial nerves II through XII intact, no motor deficit, no abnormal balance or gait Assessment and plan 1. Acute hematuria with history of kidney stones. Urology consult continue IV fluids at 75 mL per hour every 40 catheter placed. His abdomen and pelvis noted above. 2. acute kidney injury on chronic kidney disease rule out obstructive uropathy Baseline creatinine 1.5, and creatinine 4.8 continue IV fluids at 75 mL per hour nephrology consult placed Mcgovern catheter placed renal ultrasound is pending hold Lasix 3. Coronary artery disease status post times CABG 1999 to continue Plavix continue metoprolol 50 by mouth daily 4. BPH. Flomax 0.4 mg daily 5. Chronic diastolic congestive heart failure hold Lasix 6. Hypertension. Hold Lasix 120 mg daily, hold lisinopril continue Lopressor 50 g twice daily 7. Diabetes mellitus. Hold glipizide on NPH 8 units twice a day Continue insulin sliding scale. Monitor glucose before meals and at bedtime. 8 COPD. Continue DuoNeb as needed 9 Hypothyroid. Levothyroxine 100 g by mouth daily 10. Constipation MiraLAX 17 g by mouth daily 11. Colitis ulcerative: Patient was told he has ulcerative colitis denies any recent colonoscopy. We'll follow up with Dr. Carrizales as outpatient. Dicyclomine ordered for cramping 12 GI prophylaxis. Pepcid 20 mg by mouth 13. DVT prophylaxis. Heparin 5000 units subcu every 12h. status: Full Patient will be admitted for a minimum 2 nights day. Discharge disposition: To be determined, more than likely home Impression and plan of care have been directed as dictated by the signing physician. Emily Ricardo nurse practitioner acting as scribe for signing physician. Objective - Vital Signs Vital signs: Vital Signs Temp 98.4 F 07/27/21 04:17 Pulse 74 07/27/21 11:28 Resp 18 07/27/21 04:17 BP 119/54 07/27/21 08:25 Pulse Ox 96 07/27/21 04:17 Intake & Output 07/26/21 07/27/21 07/27/21 18:59 06:59 18:59 Intake Total 200 900 Output Total 600 1000 Balance -400 -100 Intake: Intake, IV Titration 900 Amount Dextrose 5% in Water 1, 900 000 ml @ 75 mls/hr IV . [id number] MELISA with Sodium Bicarb (1 Meq/ml) 150 ml Rx#:[id number] Oral 200 Output: Urine 600 1000 Other: Voiding Method Indwelling Catheter Indwelling Catheter Indwelling Catheter - Labs CBC & Chem 7: 07/26/21 02:09 07/27/21 06:09 Labs: Abnormal Lab Results - Last 24 Hours (Table) 07/26/21 07/26/21 07/26/21 Range/Units 02:09 05:37 18:02 Chloride (96-109) mmol/L Carbon Dioxide (20.0-27.5) mmol/L BUN (9.0-27.0) mg/dL Creatinine (0.6-1.5) mg/dL Est GFR (CKD-EPI)AfAm (60.0-200.0) Est GFR (CKD-EPI)NonAf (60.0-200.0) BUN/Creatinine Ratio (12.00-20.00) Ratio Glucose (70-110) mg/dL POC Glucose (mg/dL) 202 H (75-99) mg/dL Calcium (8.7-10.3) mg/dL Iron 41 L (65-175) ug/dL TIBC 224 L (228-460) ug/dL Transferrin 160.0 L (204.0-354.0) mg/dL Ferritin 570.0 H (22.0-322.0) ng/mL Ur Random Potassium 18.5 L (25.0-125.0) mmol/L 07/27/21 07/27/21 07/27/21 Range/Units 06:09 07:36 11:25 Chloride 115 H (96-109) mmol/L Carbon Dioxide 15.5 L (20.0-27.5) mmol/L BUN 92.0 H (9.0-27.0) mg/dL Creatinine 3.3 H (0.6-1.5) mg/dL Est GFR (CKD-EPI)AfAm 19.5 L (60.0-200.0) Est GFR (CKD-EPI)NonAf 16.8 L (60.0-200.0) BUN/Creatinine Ratio 27.88 H (12.00-20.00) Ratio Glucose 214 H (70-110) mg/dL POC Glucose (mg/dL) 225 H 261 H (75-99) mg/dL Calcium 8.5 L (8.7-10.3) mg/dL Iron (65-175) ug/dL TIBC (228-460) ug/dL Transferrin (204.0-354.0) mg/dL Ferritin (22.0-322.0) ng/mL Ur Random Potassium (25.0-125.0) mmol/L Microbiology - Last 24 Hours (Table) 07/26/21 05:37 Urine Culture - Preliminary Urine,Clean Catch
[2021-07-27 16:53] LABS: Glucose,Whole Blood 264 mg/dL (75-99)
[2021-07-27 20:03] LABS: Glucose,Whole Blood 306 mg/dL (75-99)
[2021-07-28] MEDS: DEXTROSE 5% IN WATER 1,000 ML with SODIUM BICARB (1 MEQ/ML) 150 ML IV SCH ×2 (05:55→12:49)
[2021-07-28] MEDS: ACETAMINOPHEN TAB 325 MG TAB PO PRN (05:56)
[2021-07-28] MEDS: LEVOTHYROXINE 100 MCG TAB PO SCH (05:56)
[2021-07-28 07:13] LABS: Glucose,Whole Blood 113 mg/dL (75-99)
[2021-07-28] MEDS: IPRATROPIUM-ALBUTEROL 3 ML NEB INHALATION SCH ×4 (07:13→19:28)
[2021-07-28] MEDS: MAGNESIUM OXIDE 400 MG TAB PO SCH (07:34)
[2021-07-28] MEDS: FAMOTIDINE 20 MG TAB PO SCH (07:34)
[2021-07-28] MEDS: CLOPIDOGREL 75 MG TAB PO SCH (07:34)
[2021-07-28] MEDS: METOPROLOL SUCCINATE (ER) 50 MG TAB.ER.24H PO SCH (07:34)
[2021-07-28] MEDS: INSULIN NPH 300 UNIT/3 ML VIAL SQ SCH ×2 (07:34→17:30)
[2021-07-28] MEDS: VIT A,C & E-LUTEIN-MINERALS 1 EACH TAB PO SCH ×2 (07:34→20:40)
[2021-07-28] MEDS: SODIUM FERRIC GLUCONAT-SUCROSE 125 MG in SODIUM CHLORIDE 0.9% 100 ML IVPB SCH (08:32)
[2021-07-28 08:55] LABS: African American GFR (CKD) 27.4 (60.0-200.0); Anion Gap 8.9 mmol/L (10.00-18.00); BUN/Creat Ratio 27.35 Ratio (12.00-20.00); Blood Urea Nitrogen 68.1 mg/dL (9.0-27.0); Calcium 8.4 mg/dL (8.7-10.3); Carbon Dioxide 18.8 mmol/L (20.0-27.5); Magnesium 2.2 mg/dL (1.5-2.4); Non-African American GFR(CKD) 23.7 (60.0-200.0); Potassium 4.1 mmol/L (3.5-5.5)
--- NOTE | 2021-07-28 09:33 | P.PN ---
Subjective Patient is seen in follow-up for acute kidney injury. Patient has chronic kidney disease stage IIIB with baseline creatinine near 1.5 from June and September 2020. Has a Mcgovern catheter. Nonoliguric. On bicarb drip. Denies chest pain or shortness of breath. Hemodynamically stable. Renal function improving. Acidosis improved as well. Vital signs are stable. General: The patient appeared well nourished and normally developed. HEENT: Head exam is unremarkable. LUNGS: Breath sounds decreased. HEART: Rate and Rhythm are regular. ABDOMEN: Soft, no distention. EXTREMITITES: No edema. Objective - Vital Signs Vital signs: Vital Signs Temp 98.4 F 07/28/21 05:00 Pulse 66 07/28/21 07:35 Resp 18 07/28/21 05:00 BP 113/58 07/28/21 07:35 Pulse Ox 96 07/28/21 05:00 Intake & Output 07/27/21 07/28/21 07/28/21 18:59 06:59 18:59 Intake Total 900 Output Total 800 1000 Balance -800 -100 Intake: Intake, IV Titration 900 Amount Dextrose 5% in Water 1, 900 000 ml @ 75 mls/hr IV . [id number] MELISA with Sodium Bicarb (1 Meq/ml) 150 ml Rx#:[id number] Output: Urine 800 1000 Uretheral (Mcgovern) 800 Other: Voiding Method Indwelling Catheter Indwelling Catheter Indwelling Catheter # Bowel Movements 0 - Labs CBC & Chem 7: 07/26/21 02:09 07/28/21 05:57 Labs: Abnormal Lab Results - Last 24 Hours (Table) 07/27/21 07/27/21 07/27/21 Range/Units 06:09 11:25 16:49 Chloride 115 H (96-109) mmol/L Carbon Dioxide 15.5 L (20.0-27.5) mmol/L Anion Gap (10.00-18.00) mmol/L BUN 92.0 H (9.0-27.0) mg/dL Creatinine 3.3 H (0.6-1.5) mg/dL Est GFR (CKD-EPI)AfAm 19.5 L (60.0-200.0) Est GFR (CKD-EPI)NonAf 16.8 L (60.0-200.0) BUN/Creatinine Ratio 27.88 H (12.00-20.00) Ratio Glucose 214 H (70-110) mg/dL POC Glucose (mg/dL) 261 H 264 H (75-99) mg/dL Calcium 8.5 L (8.7-10.3) mg/dL 07/27/21 07/28/21 07/28/21 Range/Units 20:01 05:57 07:11 Chloride 114 H (96-109) mmol/L Carbon Dioxide 18.8 L (20.0-27.5) mmol/L Anion Gap 8.90 L (10.00-18.00) mmol/L BUN 68.1 H (9.0-27.0) mg/dL Creatinine 2.5 H (0.6-1.5) mg/dL Est GFR (CKD-EPI)AfAm 27.4 L (60.0-200.0) Est GFR (CKD-EPI)NonAf 23.7 L (60.0-200.0) BUN/Creatinine Ratio 27.35 H (12.00-20.00) Ratio Glucose 117 H (70-110) mg/dL POC Glucose (mg/dL) 306 H 113 H (75-99) mg/dL Calcium 8.4 L (8.7-10.3) mg/dL Microbiology - Last 24 Hours (Table) 07/26/21 05:37 Urine Culture - Final Urine,Clean Catch Assessment and Plan Plan: Assessment: 1. Acute kidney injury secondary to ATN secondary to hypotension and obstructive uropathy. Bilateral hydronephrosis noted on kidney ultrasound. Creatinine 4.83 on admission - 2.5 today. 2. Chronic kidney disease stage IIIB with baseline creatinine near 1.5 sec ondary to diabetic kidney disease. 3. Metabolic acidosis secondary to acute kidney injury and GI losses. On bicarb drip. Improving. 4. Diabetes mellitus. 5. History of kidney/bladder stones. 6. Hypertension with chronic kidney disease. Stable. 7. Anemia of chronic kidney disease. Iron deficiency noted. 8. Bilateral hydronephrosis. Urology following. CAT scan showed fat stranding and mild hydronephrosis on the left side. 9. History of coronary artery disease status post CABG. Plan: Maintain bicarb drip at 75 mL an hour. Maintain IV iron. Continue to monitor renal function and urine output. Add oral bicarb
[2021-07-28] MEDS ORDERED: SENNOSIDES-DOCUSATE SODIUM 1 EACH TAB PO STA (09:44)
[2021-07-28 10:09] LABS: Basophils % (A) 1 %; Eosinophils # (A) 0.4 k/uL (0-0.7); Eosinophils % (A) 5 %; HGB 8.1 gm/dL (13.0-17.5); Hypochromasia Slight; Lymphocytes % (A) 26 %; MCH 31.7 pg (25.0-35.0); MCHC 32.6 g/dL (31.0-37.0); MCV 97.3 fL (80.0-100.0); Mean Platelet Volume 8.3; Monocytes # (A) 0.5 k/uL (0-1.0); Monocytes % (A) 7 %; Neutrophils # (A) 4.7 k/uL (1.3-7.7); Neutrophils % (A) 61 %; Platelet Count 215 k/uL (150-450); RBC 2.57 m/uL (4.30-5.90); RDW 13.9 % (11.5-15.5); WBC 7.8 k/uL (3.8-10.6)
[2021-07-28 10:29] LABS: Appearance,Urine Turbid (Clear); Bacteria,Urine Many /hpf; Bilirubin,Urine Negative (Negative); Blood,Urine Moderate (Negative); Color,Urine Yellow; Glucose,Urine (UA) Negative (Negative); Ketones,Urine Negative (Negative); Leukocyte Esterase,Urine Large (Negative); Mucus,Urine Occasional /hpf; Nitrite,Urine Negative (Negative); PH, Urine 5.5 (5.0-8.0); Protein,Urine 2+ (Negative); RBC,Urine 65 /hpf (0-5); Urobilinogen,Urine <2.0 mg/dL (<2.0); WBC,Urine >182 /hpf (0-5)
[2021-07-28 10:47] LABS: Specific Gravity,Urine 1.013 (1.001-1.035)
[2021-07-28 11:13] LABS: Glucose,Whole Blood 173 mg/dL (75-99)
--- NOTE | 2021-07-28 11:13 | P.PN ---
Progress Note - Text Progress Note Date: 07/28/21 The patient continues to report urinary urgency. He is otherwise comfortable. He is afebrile with stable vital signs. The Mcgovern catheter is draining clear yellow urine. The serum creatinine level has improved to 2.5 today. Renal ultrasound on July 26 showed mild bilateral hydronephrosis. Following that, the postvoid residual was 400 mL and a Mcgovern catheter was placed. With the catheter in place, a computed tomography scan was performed later that day showing mild left hydroureteronephrosis. No obstructing calculus was seen. Possibilities include a recently passed ureteral calculus, and hydronephrosis due to urinary retention. The urine culture shows later than 100,000 mixed organisms. I would suggested the Mcgovern catheter remain in place. Treatment with broad-spectrum antibiotics is reasonable. The patient may be discharged home with the Mcgovern catheter and follow up with Dr. Márquez as an outpatient. It would be reasonable at that time to repeat the ultrasound to determine whether the hydronephrosis had resolved. The patient will require cystoscopy as an etiology of the hematuria has not yet been identified.
[2021-07-28] MEDS: SODIUM BICARBONATE TAB 650 MG TAB PO SCH ×2 (11:58→20:40)
--- NOTE | 2021-07-28 12:14 | P.PN ---
Subjective Progress Note Date: 07/28/21 80 years old male with past medical history of asthma, COPD, history of ulcerative colitis coronary artery disease status post stent CABG in 2001 history of sick sinus syndrome status post pacemaker in 2001, diabetes type 2, hyperlipidemia, hypertension, thyroid disease, history of lymphoma status post chemoradiation, history of coronary artery bypass, with pacemaker and defibrillator, history of bladder stones in 2017 comes in with acute onset of hematuria that started yesterday night. Patient has been noticing increased frequency of urination with the arm decreased output. He also endorses of abdominal discomfort and flank pain. He does have chronic kidney disease stage III with baseline and he needed 1.5. He on ER evaluation the patient was noted to have a creatinine of 4.83. He had 3 episode of hematuria and cleared this morning. Patient has history of bladder stones and has seen Dr. Merritt in the past. Vital signs stable afebrile pulse 61 and respiratory rate 18 blood pressure 132/65 mL 10.8 hemoglobin 8.7 platelets 239, sodium 136 potassium 5.5 chloride 115, bicarbonate BUN 133 creatinine 4.83 glucose 218. Urinalysis RBC more than 182 WBC 182 WBC clumps many urine osmolarity 316, seated serum osmolality 338. She initially on Rocephin and IV fluids. Nephrology and urology consult placed 07/27: Patient is found sitting up in bed resting comfortably with no complaints. Patient has no acute distress. Indwelling catheter is in place to clear dependent urine. Patient did have a CAT scan of abdomen and pelvis without contrast. Impression: There is some fat stranding and mild hydronephrosis on the left side with hydroureter. No ureteral calculus. Patient is afebrile, heart rate 70, blood pressure 119/54 pulse ox 93% on room air. Potassium 4.3, BUN 92, creatinine 3.3 magnesium 2.3 07/28: Patient is found sitting up in bed resting comfortably with no complete. Patient has indwelling catheter placed with clear yellow urine present. Repeat ultrasound of the bladder to see if the hydronephrosis has resolved. Patient states that he is feeling much better that he did sleep well. Iron supplements was initiated related to anemia. She remains afebrile, heart rate 70, blood pressure 113/58 pulse ox 96% room air. W BC 7.8, hemoglobin 8.1, potassium 4.1, BUN 68.1, creatinine 2.5 ROS Constitutional: Denies chills, Denies fever, Denies lethargy, Denies malaise, Denies poor appetite, Denies weakness, Denies weight loss Eyes: denies decreased vision, denies diplopia, denies discharge, denies pain Ears: deny: decreased hearing Ears, nose, mouth and throat: Denies dental pain, Denies headache, Denies nasal discharge, Denies nose pain Cardiovascular: Denies chest pain, Denies decreased exercise tolerance, Denies edema, Denies high blood pressure, Denies irregular heart beat, Denies palpitations, Denies paroxysmal nocturnal dyspnea, Denies rapid heart beat, Denies shortness of breath Respiratory: Denies congestion, Denies cough, Denies cough with sputum, Denies dyspnea, Denies home oxygen, Denies wheezing Gastrointestinal: Endorses abdominal pain, Denies change in bowel habits, Denies coffee ground emesis, Denies early satiety, Denies excessive gas, Denies heartburn, Denies hematemesis, Denies hematochezia, Denies loss of appetite, Denies nausea, Denies vomiting Genitourinary: Denies dysuria, endorses flank pain, endorses kidney stones, Denies menorrhagia, endorses urgency, endorses urinary frequency Musculoskeletal: Denies gait dysfunction, Denies limitation of motion, Denies morning stiffness, Denies muscle cramps Integumentary: Denies rash, Denies wounds, Denies brittle nails, Denies change in hair/nails, Denies darkening of skin Neurological: Denies balance difficulties, Denies change in speech, Denies double vision, Denies gait dysfunction, Denies loss of vision, Denies motor disturbance, Denies numbness, Denies paralysis, Denies paresthesias, Denies seizures Psychiatric: Denies anxiety, Denies depression Endocrine: Denies excessive sweating, Denies excessive thirst, Denies high blood sugars, Denies palpitations Hematologic/Lymphatic: Denies easy bruising, Denies lymphadenopathy Physical exam General Appearance: Alert, cooperative, no distress, 80-year-old appears stated age. Appears frail Neck HEENT: Supple, no lymphadenopathy, no thyroid enlargement, no carotid bruits. Lungs: Clear to auscultation without crackles or wheezes no rhonchi, no deformity. Chest Wall: Chest wall normal expansion with deep inspiration no tenderness and no deformity was found on exam, no costochondral pain or discomfort. Heart: Regular rate and rhythm, S1, S2 normal,3/6 systolic murmur, no diastolic murmur, no rub no S3 or S4 gallop, no click Back: Symmetric, no curvature, ROM normal, no CVA tenderness. Abdomen: Soft, mild tenderness in the suprapubic area, no flank tenderness, no rebound or rigidity, no hepatosplenomegaly. Extremities: Extremities normal, atraumatic, no cyanosis or edema. Pulses: 2+ and symmetric. Skin: Skin color, texture, tugor normal, no rashes or lesions. Neurologic: Alert oriented x3 cranial nerves II through XII intact, no motor deficit, no abnormal balance or gait Assessment and plan 1. Acute hematuria with history of kidney stones. Urology consult continue IV fluids at 75 mL per hour every 40 catheter placed. Repeat ultrasound of bladder to see if hydronephrosis has resolved. Patient may be set up for cystoscopy on outpatient basis. Patient may be discharged home with Mcgovern catheter in place and follow with Dr. Merritt as an outpatient as per Dr. Hollins. 2. acute kidney injury on chronic kidney disease rule out obstructive uropathy Baseline creatinine 1.5, and creatinine 4.8 continue IV fluids at 75 mL per hour nephrology consult placed Mcgovern catheter placed. repeat renal ultrasound is pending hold Lasix 3. Coronary artery disease status post times CABG 1999 to continue Plavix continue metoprolol 50 by mouth daily 4. BPH. Flomax 0.4 mg daily 5. Chronic diastolic congestive heart failure hold Lasix 6. Hypertension. Hold Lasix 120 mg daily, hold lisinopril continue Lopressor 50 g twice daily 7. Diabetes mellitus. Hold glipizide on NPH 8 units twice a day Continue insulin sliding scale. Monitor glucose before meals and at bedtime. 8 COPD. Continue DuoNeb as needed 9 Hypothyroid. Levothyroxine 100 g by mouth daily 10. Constipation MiraLAX 17 g by mouth daily 11. Colitis ulcerative: Patient was told he has ulcerative colitis denies any recent colonoscopy. We'll follow up with Dr. Carrizales as outpatient. Dicyclomine ordered for cramping 12 anemia. Iron supplement 3 13. DVT prophylaxis. Heparin 5000 units subcu every 12h. 14. GI prophylaxis. Pepcid 20 mg by mouth CODE status: Full Patient will be admitted for a minimum 2 nights day. Discharge disposition: To be determined, more than likely home Impression and plan of care have been directed as dictated by the signing physician. Emily Ricardo nurse practitioner acting as scribe for signing physician. Objective - Vital Signs Vital signs: Vital Signs Temp 98.4 F 07/28/21 05:00 Pulse 70 07/28/21 10:57 Resp 18 07/28/21 05:00 BP 113/58 07/28/21 07:35 Pulse Ox 96 07/28/21 05:00 Intake & Output 07/27/21 07/28/21 07/28/21 18:59 06:59 18:59 Intake Total 900 Output Total 800 1000 Balance -800 -100 Intake: Intake, IV Titration 900 Amount Dextrose 5% in Water 1, 900 000 ml @ 75 mls/hr IV . [id number] MELISA with Sodium Bicarb (1 Meq/ml) 150 ml Rx#:[id number] Output: Urine 800 1000 Uretheral (Mcgovern) 800 Other: Voiding Method Indwelling Catheter Indwelling Catheter Indwelling Catheter # Bowel Movements 0 - Labs CBC & Chem 7: 07/28/21 05:57 07/28/21 05:57 Labs: Abnormal Lab Results - Last 24 Hours (Table) 07/27/21 07/27/21 07/28/21 Range/Units 16:49 20:01 05:57 RBC (4.30-5.90) m/uL Hgb (13.0-17.5) gm/dL Hct (39.0-53.0) % Chloride 114 H (96-109) mmol/L Carbon Dioxide 18.8 L (20.0-27.5) mmol/L Anion Gap 8.90 L (10.00-18.00) mmol/L BUN 68.1 H (9.0-27.0) mg/dL Creatinine 2.5 H (0.6-1.5) mg/dL Est GFR (CKD-EPI)AfAm 27.4 L (60.0-200.0) Est GFR (CKD-EPI)NonAf 23.7 L (60.0-200.0) BUN/Creatinine Ratio 27.35 H (12.00-20.00) Ratio Glucose 117 H (70-110) mg/dL POC Glucose (mg/dL) 264 H 306 H (75-99) mg/dL Calcium 8.4 L (8.7-10.3) mg/dL Urine Protein (Negative) Urine Blood (Negative) Ur Leukocyte Esterase (Negative) Urine RBC (0-5) /hpf Urine WBC (0-5) /hpf Urine WBC Clumps (None) /hpf Urine Bacteria (None) /hpf Urine Mucus (None) /hpf 07/28/21 07/28/21 07/28/21 Range/Units 05:57 07:11 09:49 RBC 2.57 L (4.30-5.90) m/uL Hgb 8.1 L (13.0-17.5) gm/dL Hct 25.0 L (39.0-53.0) % Chloride (96-109) mmol/L Carbon Dioxide (20.0-27.5) mmol/L Anion Gap (10.00-18.00) mmol/L BUN (9.0-27.0) mg/dL Creatinine (0.6-1.5) mg/dL Est GFR (CKD-EPI)AfAm (60.0-200.0) Est GFR (CKD-EPI)NonAf (60.0-200.0) BUN/Creatinine Ratio (12.00-20.00) Ratio Glucose (70-110) mg/dL POC Glucose (mg/dL) 113 H (75-99) mg/dL Calcium (8.7-10.3) mg/dL Urine Protein 2+ H (Negative) Urine Blood Moderate H (Negative) Ur Leukocyte Esterase Large H (Negative) Urine RBC 65 H (0-5) /hpf Urine WBC >182 H (0-5) /hpf Urine WBC Clumps Many H (None) /hpf Urine Bacteria Many H (None) /hpf Urine Mucus Occasional H (None) /hpf 07/28/21 Range/Units 11:11 RBC (4.30-5.90) m/uL Hgb (13.0-17.5) gm/dL Hct (39.0-53.0) % Chloride (96-109) mmol/L Carbon Dioxide (20.0-27.5) mmol/L Anion Gap (10.00-18.00) mmol/L BUN (9.0-27.0) mg/dL Creatinine (0.6-1.5) mg/dL Est GFR (CKD-EPI)AfAm (60.0-200.0) Est GFR (CKD-EPI)NonAf (60.0-200.0) BUN/Creatinine Ratio (12.00-20.00) Ratio Glucose (70-110) mg/dL POC Glucose (mg/dL) 173 H (75-99) mg/dL Calcium (8.7-10.3) mg/dL Urine Protein (Negative) Urine Blood (Negative) Ur Leukocyte Esterase (Negative) Urine RBC (0-5) /hpf Urine WBC (0-5) /hpf Urine WBC Clumps (None) /hpf Urine Bacteria (None) /hpf Urine Mucus (None) /hpf Microbiology - Last 24 Hours (Table) 07/26/21 05:37 Urine Culture - Final Urine,Clean Catch
--- NOTE | 2021-07-28 13:33 | US ---
EXAMINATION TYPE: US kidneys/renal and bladder DATE OF EXAM: 07/28/2021 COMPARISON: NONE CLINICAL HISTORY: hydronephrosis resolved. h/o hydro and cysts EXAM MEASUREMENTS: Right Kidney: 10.0 x 4.4 x 5.3 cm Left Kidney: 9.8 x 4.4 x 5.9 cm Right Kidney: No hydronephrosis, cysts seen, largest inferior pole = 4.1 x 3.0 x 4.3cm Left Kidney: No hydronephrosis or masses seen Bladder: not seen, mcgarry cath There is no evidence for hydronephrosis at this point in time. No nephrolithiasis is seen. No solid masses are identified. IMPRESSION: Simple cyst right kidney.
[2021-07-28 17:10] LABS: Glucose,Whole Blood 267 mg/dL (75-99)
[2021-07-28 20:27] LABS: Glucose,Whole Blood 290 mg/dL (75-99)
[2021-07-29] MEDS: LEVOTHYROXINE 100 MCG TAB PO SCH (05:42)
[2021-07-29] MEDS: IPRATROPIUM-ALBUTEROL 3 ML NEB INHALATION SCH ×4 (07:09→19:10)
[2021-07-29 07:15] LABS: Glucose,Whole Blood 142 mg/dL (75-99)
[2021-07-29] MEDS: INSULIN NPH 300 UNIT/3 ML VIAL SQ SCH ×2 (08:11→18:03)
[2021-07-29] MEDS: MAGNESIUM OXIDE 400 MG TAB PO SCH (08:11)
[2021-07-29] MEDS: METOPROLOL SUCCINATE (ER) 50 MG TAB.ER.24H PO SCH (08:11)
[2021-07-29] MEDS: CLOPIDOGREL 75 MG TAB PO SCH (08:11)
[2021-07-29] MEDS: SODIUM BICARBONATE TAB 650 MG TAB PO SCH ×2 (08:11→20:06)
[2021-07-29] MEDS: FAMOTIDINE 20 MG TAB PO SCH (08:11)
[2021-07-29] MEDS: VIT A,C & E-LUTEIN-MINERALS 1 EACH TAB PO SCH ×2 (08:12→20:06)
[2021-07-29] MEDS: DEXTROSE 5% IN WATER 1,000 ML with SODIUM BICARB (1 MEQ/ML) 150 ML IV SCH ×2 (08:21→16:12)
[2021-07-29 08:56] LABS: Basophils # (A) 0.03 X 10*3/uL (0.00-0.10); Basophils % (A) 0.4 %; Eosinophils # (A) 0.36 X 10*3/uL (0.04-0.35); Eosinophils % (A) 4.9 %; HCT 23.1 % (39.6-50.0); HGB 7.1 g/dL (13.0-17.0); Immature Grans, Automated 0.5 %; Lymphocytes # (A) 2.27 X 10*3/uL (0.90-5.00); Lymphocytes % (A) 31.2 %; MCH 29.6 pg (27.0-32.0); MCHC 30.7 g/dL (32.0-37.0); MCV 96.3 fL (80.0-97.0); Monocytes # (A) 0.75 X 10*3/uL (0.20-1.00); Monocytes % (A) 10.3 %; NRBC Per 100 WBC 0 /100 WBCS (0.0-0.0); Neutrophils # (A) 3.83 X 10*3/uL (1.80-7.70); Neutrophils % (A) 52.7 %; Platelet Count 202 X 10*3/uL (140-440); RDW 13.9 % (11.5-14.5); WBC 7.28 X 10*3/uL (4.50-10.00)
[2021-07-29 09:08] LABS: ALT 8 U/L (10-49); AST 8 U/L (14-35); African American GFR (CKD) 35.7 (60.0-200.0); Albumin 2.8 g/dL (3.8-4.9); Albumin/Globulin Ratio 1.04 (1.60-3.17); Alkaline Phosphatase 100 U/L (41-126); Blood Urea Nitrogen 46.6 mg/dL (9.0-27.0); Calcium 8.1 mg/dL (8.7-10.3); Carbon Dioxide 22.8 mmol/L (20.0-27.5); Chloride 111 mmol/L (96-109); Globulin 2.7 g/dL (1.6-3.3); Glucose 162 mg/dL (70-110); Non-African American GFR(CKD) 30.8 (60.0-200.0); Potassium 4.1 mmol/L (3.5-5.5); Sodium 142 mmol/L (135-145); Total Bilirubin <0.15 mg/dL (0.30-1.20); Total Protein 5.5 g/dL (6.2-8.2)
[2021-07-29 12:03] VITALS: BMI 29.9
[2021-07-29] MEDS: SODIUM FERRIC GLUCONAT-SUCROSE 125 MG in SODIUM CHLORIDE 0.9% 100 ML IVPB SCH (12:13)
[2021-07-29 12:15] LABS: Glucose,Whole Blood 162 mg/dL (75-99)
--- NOTE | 2021-07-29 13:22 | P.PN ---
Subjective Patient is seen for follow-up for acute kidney injury and top of chronic kidney disease. He has underlying C daily stage IIIB with baseline creatinine about 1.5 from June and September 2020. Currently with indwelling Mcgovern catheter for bilateral hydronephrosis noted on this admission with serum creatinine at 4.8 on initial admission, now decreased to 2 mg/dL Patient has been evaluated by urology and plan is to continue with the indwelling Mcgovern cath Objective - Vital Signs Vital signs: Vital Signs Temp 97.6 F 07/29/21 12:39 Pulse 75 07/29/21 12:39 Resp 18 07/29/21 12:39 BP 123/57 07/29/21 12:39 Pulse Ox 99 07/29/21 12:39 Intake & Output 07/28/21 07/29/21 07/29/21 18:59 06:59 18:59 Intake Total 2000 400 Output Total 1000 700 50 Balance 1000 -300 -50 Weight 100.244 kg Intake: Oral 2000 400 Output: Urine 1000 700 Uretheral (Mcgovern) 1000 Emesis 50 Other: Voiding Method Indwelling Catheter Indwelling Catheter Indwelling Catheter # Voids 2 - Exam Patient is awake comfortable not in any acute distress. Examination of the heart S1 and S2 Exertion lungs bilateral breath sounds are heard Abdomen is soft nontender Examination of lower extremity shows no significant edema [employer] exam 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 - Labs CBC & Chem 7: 07/29/21 05:36 07/29/21 05:36 Labs: Abnormal Lab Results - Last 24 Hours (Table) 07/28/21 07/28/21 07/29/21 Range/Units 17:08 20:13 05:36 RBC (4.40-5.60) X 10*6/uL Hgb (13.0-17.0) g/dL Hct (39.6-50.0) % MCHC (32.0-37.0) g/dL Eosinophils # (0.04-0.35) X 10*3/uL Chloride 111 H (96-109) mmol/L Anion Gap 8.20 L (10.00-18.00) mmol/L BUN 46.6 H (9.0-27.0) mg/dL Creatinine 2.0 H (0.6-1.5) mg/dL Est GFR (CKD-EPI)AfAm 35.7 L (60.0-200.0) Est GFR (CKD-EPI)NonAf 30.8 L (60.0-200.0) BUN/Creatinine Ratio 23.30 H (12.00-20.00) Ratio Glucose 162 H (70-110) mg/dL POC Glucose (mg/dL) 267 H 290 H (75-99) mg/dL Calcium 8.1 L (8.7-10.3) mg/dL Total Bilirubin <0.15 L (0.30-1.20) mg/dL AST 8 L (14-35) U/L ALT 8 L (10-49) U/L Total Protein 5.5 L (6.2-8.2) g/dL Albumin 2.8 L (3.8-4.9) g/dL Albumin/Globulin Ratio 1.04 L (1.60-3.17) g/dL 07/29/21 07/29/21 07/29/21 Range/Units 05:36 07:10 11:42 RBC 2.40 L (4.40-5.60) X 10*6/uL Hgb 7.1 L (13.0-17.0) g/dL Hct 23.1 L (39.6-50.0) % MCHC 30.7 L (32.0-37.0) g/dL Eosinophils # 0.36 H (0.04-0.35) X 10*3/uL Chloride (96-109) mmol/L Anion Gap (10.00-18.00) mmol/L BUN (9.0-27.0) mg/dL Creatinine (0.6-1.5) mg/dL Est GFR (CKD-EPI)AfAm (60.0-200.0) Est GFR (CKD-EPI)NonAf (60.0-200.0) BUN/Creatinine Ratio (12.00-20.00) Ratio Glucose (70-110) mg/dL POC Glucose (mg/dL) 142 H 162 H (75-99) mg/dL Calcium (8.7-10.3) mg/dL Total Bilirubin (0.30-1.20) mg/dL AST (14-35) U/L ALT (10-49) U/L Total Protein (6.2-8.2) g/dL Albumin (3.8-4.9) g/dL Albumin/Globulin Ratio (1.60-3.17) g/dL Microbiology - Last 24 Hours (Table) 07/28/21 09:49 Urine Culture - Preliminary Urine,Voided Assessment and Plan Assessment: 1. Acute kidney injury associated with obstructive uropathy as well as ATN from hypotension. Ultrasound showed bilateral hydronephrosis currently improved on repeat ultrasound and patient has an indwelling Mcgovern catheter 2. 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 Metabolic acidosis associated with acute kidney injury and GI fluid losses status post bicarb drip 5. History of kidney and bladder stones 7. Anemia of chronic disease with iron deficiency 7. Bilateral hydronephrosis being followed by urology with repeat ultrasound showing resolution of hydronephrosis 8. History of coronary artery disease status post coronary artery bypass surgery Plan: Continue with the IV bicarb and oral sodium bicarb Continue IV iron Repeat labs in a.m. Continue with Mcgovern catheter
--- NOTE | 2021-07-29 13:38 | P.PN ---
Subjective Progress Note Date: 07/29/21 Progress Note Date: 07/28/21 80 years old male with past medical history of asthma, COPD, history of ulcerative colitis coronary artery disease status post stent CABG in 2001 history of sick sinus syndrome status post pacemaker in 2001, diabetes type 2, hyperlipidemia, hypertension, thyroid disease, history of lymphoma status post chemoradiation, history of coronary artery bypass, with pacemaker and defibrillator, history of bladder stones in 2017 comes in with acute onset of hematuria that started yesterday night. Patient has been noticing increased frequency of urination with the arm decreased output. He also endorses of abdominal discomfort and flank pain. He does have chronic kidney disease stage III with baseline and he needed 1.5. He on ER evaluation the patient was noted to have a creatinine of 4.83. He had 3 episode of hematuria and cleared this morning. Patient has history of bladder stones and has seen Dr. Merritt in the past. Vital signs stable afebrile pulse 61 and respiratory rate 18 blood pressure 132/65 mL 10.8 hemoglobin 8.7 platelets 239, sodium 136 potassium 5.5 chloride 115, bicarbonate BUN 133 creatinine 4.83 glucose 218. Urinalysis RBC more than 182 WBC 182 WBC clumps many urine osmolarity 316, seated serum osmolality 338. She initially on Rocephin and IV fluids. Nephrology and urology consult placed 07/27: Patient is found sitting up in bed resting comfortably with no complaints. Patient has no acute distress. Indwelling catheter is in place to clear dependent urine. Patient did have a CAT scan of abdomen and pelvis without contrast. Impression: There is some fat stranding and mild hydronephrosis on the left side with hydroureter. No ureteral calculus. Patient is afebrile, heart rate 70, blood pressure 119/54 pulse ox 93% on room air. Potassium 4.3, BUN 92, creatinine 3.3 magnesium 2.3 07/28: Patient is found sitting up in bed resting comfortably with no complete. Patient has indwelling catheter placed with clear yellow urine present. Repeat ultrasound of the bladder to see if the hydronephrosis has resolved. Patient states that he is feeling much better that he did sleep well. Iron supplements was initiated related to anemia. She remains afebrile, heart rate 70, blood pressure 113/58 pulse ox 96% room air. W BC 7.8, hemoglobin 8.1, potassium 4.1, BUN 68.1, creatinine 2.5 07/29: Patient is doing much better so far 70s hemoglobin dropped down to 7.1, his kidney function creatinine has improved significantly patient does not require any without cyst. No intervention required by urology at this point patient apparently will keep the Mcgovern catheter for a few days after his discharge still he goes back to see urology as an outpatient. Still not have any explanation to why he has a chronic hydronephrosis might require further intervention. Patient will be kept 1 more day continue hydration repeat CBC in the morning if hemoglobin is below 7 require transfusion in the meanwhile continue iron supplement ROS Constitutional: Denies chills, Denies fever, Denies lethargy, Denies malaise, Denies poor appetite, Denies weakness, Denies weight loss Eyes: denies decreased vision, denies diplopia, denies discharge, denies pain Ears: deny: decreased hearing Ears, nose, mouth and throat: Denies dental pain, Denies headache, Denies nasal discharge, Denies nose pain Cardiovascular: Denies chest pain, Denies decreased exercise tolerance, Denies edema, Denies high blood pressure, Denies irregular heart beat, Denies palpitations, Denies paroxysmal nocturnal dyspnea, Denies rapid heart beat, Denies shortness of breath Respiratory: Denies congestion, Denies cough, Denies cough with sputum, Denies dyspnea, Denies home oxygen, Denies wheezing Gastrointestinal: Endorses abdominal pain, Denies change in bowel habits, Denies coffee ground emesis, Denies early satiety, Denies excessive gas, Denies heartburn, Denies hematemesis, Denies hematochezia, Denies loss of appetite, Denies nausea, Denies vomiting Genitourinary: Denies dysuria, endorses flank pain, endorses kidney stones, Denies menorrhagia, endorses urgency, endorses urinary frequency Musculoskeletal: Denies gait dysfunction, Denies limitation of motion, Denies morning stiffness, Denies muscle cramps Integumentary: Denies rash, Denies wounds, Denies brittle nails, Denies change in hair/nails, Denies darkening of skin Neurological: Denies balance difficulties, Denies change in speech, Denies lola ble vision, Denies gait dysfunction, Denies loss of vision, Denies motor disturbance, Denies numbness, Denies paralysis, Denies paresthesias, Denies seizures Psychiatric: Denies anxiety, Denies depression Endocrine: Denies excessive sweating, Denies excessive thirst, Denies high blood sugars, Denies palpitations Hematologic/Lymphatic: Denies easy bruising, Denies lymphadenopathy Physical exam General Appearance: Alert, cooperative, no distress, 80-year-old appears stated age. Appears frail Neck HEENT: Supple, no lymphadenopathy, no thyroid enlargement, no carotid bru its. Lungs: Clear to auscultation without crackles or wheezes no rhonchi, no deformity. Chest Wall: Chest wall normal expansion with deep inspiration no tenderness and no deformity was found on exam, no costochondral pain or discomfort. Heart: Regular rate and rhythm, S1, S2 normal,3/6 systolic murmur, no diastolic murmur, no rub no S3 or S4 gallop, no click Back: Symmetric, no curvature, ROM normal, no CVA tenderness. Abdomen: Soft, mild tenderness in the suprapubic area, no flank tenderness, no rebound or rigidity, no hepatosplenomegaly. Extremities: Extremities normal, atraumatic, no cyanosis or edema. Pulses: 2+ and symmetric. Skin: Skin color, texture, tugor normal, no rashes or lesions. Neurologic: Alert oriented x3 cranial nerves II through XII intact, no motor deficit, no abnormal balance or gait Assessment and plan 1. Acute hematuria with history of kidney stones. Has been seen urology still on IV hydration and pain management symptom are slightly better continue Mcgovern catheter at this point patient to be discharged to the catheter will require to go for cystoscopy and further intervention as an outpatient, apparently seen Dr. Merritt's office decision is to leave the catheter today seen by him in the next week or so. 2. acute kidney injury on chronic kidney disease rule out obstructive uropathy Baseline creatinine 1.5, significant improvement in his creatinine on hydration continue current management we'll leave the catheter in until his intervention with urologist on. 3. Coronary artery disease status post times CABG 1999 to continue Plavix continue metoprolol 50 by mouth daily 4. BPH. Flomax 0.4 mg daily with no real sinus obstruction from BPH. 5. Chronic diastolic congestive heart failure hold Lasix which will be continu ed as an outpatient upon discharge. 6. Hypertension. Hold Lasix 120 mg daily, hold lisinopril continue Lopressor 50 g twice daily 7. Diabetes mellitus. Hold glipizide on NPH 8 units twice a day Continue insulin sliding scale. Monitor glucose before meals and at bedtime. 8 COPD. Continue DuoNeb as needed 9 Hypothyroid. Levothyroxine 100 g by mouth daily 10. Constipation MiraLAX 17 g by mouth daily 11. History of ulcerative colitis: Still seen gastroenterology and still on dicyclomine no anti-colitis agent. 12 anemia. With hemoglobin dropped down 7.1, had iron infusion continue iron supplement. Discharge planning: Patient be discharged home tomorrow if his stable and his hemoglobin is better. Objective - Vital Signs Vital signs: Vital Signs Temp 98.9 F 07/29/21 04:52 Pulse 66 07/29/21 07:20 Resp 18 07/29/21 04:52 BP 124/48 07/29/21 04:52 Pulse Ox 97 07/29/21 04:52 Intake & Output 07/28/21 07/29/21 07/29/21 18:59 06:59 18:59 Intake Total 2000 400 Output Total 1000 700 50 Balance 1000 -300 -50 Intake: Oral 2000 400 Output: Urine 1000 700 Uretheral (Mcgovern) 1000 Emesis 50 Other: Voiding Method Indwelling Catheter Indwelling Catheter Indwelling Catheter - Labs CBC & Chem 7: 07/29/21 05:36 07/29/21 05:36 Labs: Abnormal Lab Results - Last 24 Hours (Table) 07/28/21 07/28/21 07/28/21 Range/Units 09:49 11:11 17:08 RBC (4.40-5.60) X 10*6/uL Hgb (13.0-17.0) g/dL Hct (39.6-50.0) % MCHC (32.0-37.0) g/dL Eosinophils # (0.04-0.35) X 10*3/uL Chloride (96-109) mmol/L Anion Gap (10.00-18.00) mmol/L BUN (9.0-27.0) mg/dL Creatinine (0.6-1.5) mg/dL Est GFR (CKD-EPI)AfAm (60.0-200.0) Est GFR (CKD-EPI)NonAf (60.0-200.0) BUN/Creatinine Ratio (12.00-20.00) Ratio Glucose (70-110) mg/dL POC Glucose (mg/dL) 173 H 267 H (75-99) mg/dL Calcium (8.7-10.3) mg/dL Total Bilirubin (0.30-1.20) mg/dL AST (14-35) U/L ALT (10-49) U/L Total Protein (6.2-8.2) g/dL Albumin (3.8-4.9) g/dL Albumin/Globulin Ratio (1.60-3.17) g/dL Urine Protein 2+ H (Negative) Urine Blood Moderate H (Negative) Ur Leukocyte Esterase Large H (Negative) Urine RBC 65 H (0-5) /hpf Urine WBC >182 H (0-5) /hpf Urine WBC Clumps Many H (None) /hpf Urine Bacteria Many H (None) /hpf Urine Mucus Occasional H (None) /hpf 07/28/21 07/29/21 07/29/21 Range/Units 20:13 05:36 05:36 RBC 2.40 L (4.40-5.60) X 10*6/uL Hgb 7.1 L (13.0-17.0) g/dL Hct 23.1 L (39.6-50.0) % MCHC 30.7 L (32.0-37.0) g/dL Eosinophils # 0.36 H (0.04-0.35) X 10*3/uL Chloride 111 H (96-109) mmol/L Anion Gap 8.20 L (10.00-18.00) mmol/L BUN 46.6 H (9.0-27.0) mg/dL Creatinine 2.0 H (0.6-1.5) mg/dL Est GFR (CKD-EPI)AfAm 35.7 L (60.0-200.0) Est GFR (CKD-EPI)NonAf 30.8 L (60.0-200.0) BUN/Creatinine Ratio 23.30 H (12.00-20.00) Ratio Glucose 162 H (70-110) mg/dL POC Glucose (mg/dL) 290 H (75-99) mg/dL Calcium 8.1 L (8.7-10.3) mg/dL Total Bilirubin <0.15 L (0.30-1.20) mg/dL AST 8 L (14-35) U/L ALT 8 L (10-49) U/L Total Protein 5.5 L (6.2-8.2) g/dL Albumin 2.8 L (3.8-4.9) g/dL Albumin/Globulin Ratio 1.04 L (1.60-3.17) g/dL Urine Protein (Negative) Urine Blood (Negative) Ur Leukocyte Esterase (Negative) Urine RBC (0-5) /hpf Urine WBC (0-5) /hpf Urine WBC Clumps (None) /hpf Urine Bacteria (None) /hpf Urine Mucus (None) /hpf 07/29/21 Range/Units 07:10 RBC (4.40-5.60) X 10*6/uL Hgb (13.0-17.0) g/dL Hct (39.6-50.0) % MCHC (32.0-37.0) g/dL Eosinophils # (0.04-0.35) X 10*3/uL Chloride (96-109) mmol/L Anion Gap (10.00-18.00) mmol/L BUN (9.0-27.0) mg/dL Creatinine (0.6-1.5) mg/dL Est GFR (CKD-EPI)AfAm (60.0-200.0) Est GFR (CKD-EPI)NonAf (60.0-200.0) BUN/Creatinine Ratio (12.00-20.00) Ratio Glucose (70-110) mg/dL POC Glucose (mg/dL) 142 H (75-99) mg/dL Calcium (8.7-10.3) mg/dL Total Bilirubin (0.30-1.20) mg/dL AST (14-35) U/L ALT (10-49) U/L Total Protein (6.2-8.2) g/dL Albumin (3.8-4.9) g/dL Albumin/Globulin Ratio (1.60-3.17) g/dL Urine Protein (Negative) Urine Blood (Negative) Ur Leukocyte Esterase (Negative) Urine RBC (0-5) /hpf Urine WBC (0-5) /hpf Urine WBC Clumps (None) /hpf Urine Bacteria (None) /hpf Urine Mucus (None) /hpf Microbiology - Last 24 Hours (Table) 07/28/21 09:49 Urine Culture - Preliminary Urine,Voided
[2021-07-29 17:29] LABS: Glucose,Whole Blood 174 mg/dL (75-99)
[2021-07-29 20:02] LABS: Glucose,Whole Blood 230 mg/dL (75-99)
[2021-07-30] MEDS ORDERED: ONDANSETRON 4 MG/2 ML VIAL IVP PRN (04:34)
[2021-07-30] MEDS: LEVOTHYROXINE 100 MCG TAB PO SCH (05:16)
[2021-07-30 07:31] LABS: Glucose,Whole Blood 166 mg/dL (75-99)
[2021-07-30 07:33] LABS: HCT 24.7 % (39.0-53.0); HGB 7.8 gm/dL (13.0-17.5); Hypochromasia Marked; MCH 31.7 pg (25.0-35.0); MCHC 31.5 g/dL (31.0-37.0); MCV 100.5 fL (80.0-100.0); Mean Platelet Volume 7.3; Platelet Count 198 k/uL (150-450); RBC 2.46 m/uL (4.30-5.90); RDW 13.6 % (11.5-15.5); WBC 10.8 k/uL (3.8-10.6)
[2021-07-30] MEDS: IPRATROPIUM-ALBUTEROL 3 ML NEB INHALATION SCH ×3 (07:44→15:01)
[2021-07-30] MEDS: SODIUM FERRIC GLUCONAT-SUCROSE 125 MG in SODIUM CHLORIDE 0.9% 100 ML IVPB SCH (08:56)
[2021-07-30] MEDS: CLOPIDOGREL 75 MG TAB PO SCH (08:57)
[2021-07-30] MEDS: SODIUM BICARBONATE TAB 650 MG TAB PO SCH (08:57)
[2021-07-30] MEDS: METOPROLOL SUCCINATE (ER) 50 MG TAB.ER.24H PO SCH (08:58)
[2021-07-30] MEDS: VIT A,C & E-LUTEIN-MINERALS 1 EACH TAB PO SCH (08:58)
[2021-07-30] MEDS: FAMOTIDINE 20 MG TAB PO SCH (08:58)
[2021-07-30] MEDS: INSULIN NPH 300 UNIT/3 ML VIAL SQ SCH (08:58)
[2021-07-30] MEDS: MAGNESIUM OXIDE 400 MG TAB PO SCH (08:58)
[2021-07-30 09:36] LABS: Albumin 2.6 g/dL (3.8-4.9); Albumin/Globulin Ratio 0.9 (1.60-3.17); Anion Gap 8.7 mmol/L (10.00-18.00); BUN/Creat Ratio 17.42 Ratio (12.00-20.00); Blood Urea Nitrogen 33.1 mg/dL (9.0-27.0); Calcium 7.9 mg/dL (8.7-10.3); Carbon Dioxide 23.3 mmol/L (20.0-27.5); Globulin 2.9 g/dL (1.6-3.3); Non-African American GFR(CKD) 32.8 (60.0-200.0); Potassium 4.4 mmol/L (3.5-5.5); Total Bilirubin 0.2 mg/dL (0.30-1.20); Total Protein 5.5 g/dL (6.2-8.2)
--- NOTE | 2021-07-30 09:38 | P.PN ---
Subjective Progress Note Date: 07/30/21 Progress Note Date: 07/28/21 80 years old male with past medical history of asthma, COPD, history of ulcerative colitis coronary artery disease status post stent CABG in 2001 history of sick sinus syndrome status post pacemaker in 2001, diabetes type 2, hyperlipidemia, hypertension, thyroid disease, history of lymphoma status post chemoradiation, history of coronary artery bypass, with pacemaker and defibrillator, history of bladder stones in 2017 comes in with acute onset of hematuria that started yesterday night. Patient has been noticing increased frequency of urination with the arm decreased output. He also endorses of abdominal discomfort and flank pain. He does have chronic kidney disease stage III with baseline and he needed 1.5. He on ER evaluation the patient was noted to have a creatinine of 4.83. He had 3 episode of hematuria and cleared this morning. Patient has history of bladder stones and has seen Dr. Merritt in the past. Vital signs stable afebrile pulse 61 and respiratory rate 18 blood pressure 132/65 mL 10.8 hemoglobin 8.7 platelets 239, sodium 136 potassium 5.5 chloride 115, bicarbonate BUN 133 creatinine 4.83 glucose 218. Urinalysis RBC more than 182 WBC 182 WBC clumps many urine osmolarity 316, seated serum osmolality 338. She initially on Rocephin and IV fluids. Nephrology and urology consult placed 07/27: Patient is found sitting up in bed resting comfortably with no complaints. Patient has no acute distress. Indwelling catheter is in place to clear dependent urine. Patient did have a CAT scan of abdomen and pelvis without contrast. Impression: There is some fat stranding and mild hydronephrosis on the left side with hydroureter. No ureteral calculus. Patient is afebrile, heart rate 70, blood pressure 119/54 pulse ox 93% on room air. Potassium 4.3, BUN 92, creatinine 3.3 magnesium 2.3 07/28: Patient is found sitting up in bed resting comfortably with no complete. Patient has indwelling catheter placed with clear yellow urine present. Repeat ultrasound of the bladder to see if the hydronephrosis has resolved. Patient states that he is feeling much better that he did sleep well. Iron supplements was initiated related to anemia. She remains afebrile, heart rate 70, blood pressure 113/58 pulse ox 96% room air. W BC 7.8, hemoglobin 8.1, potassium 4.1, BUN 68.1, creatinine 2.5 07/29: Patient is doing much better so far 70s hemoglobin dropped down to 7.1, his kidney function creatinine has improved significantly patient does not require any without cyst. No intervention required by urology at this point patient apparently will keep the Mcgovern catheter for a few days after his discharge still he goes back to see urology as an outpatient. Still not have any explanation to why he has a chronic hydronephrosis might require further intervention. Patient will be kept 1 more day continue hydration repeat CBC in the morning if hemoglobin is below 7 require transfusion in the meanwhile continue iron supplement. 07/30: Hemoglobin today was 7.8 has been more stable, urine has been more clear with no sign of hematuria, kidney function is stable at this point. Patient be discharged home today to follow with urology for possible outpatient cystoscopy in the meanwhile he will keep his Mcgovern catheter in activity see urologist in their office before the final conclusion and plan. Patient urine culture came back negative except for mild yeast he will be going home on Ceftin 250 mg twice a day for total of 1 week while his catheter is in. ROS Constitutional: Denies chills, Denies fever, Denies lethargy, Denies malaise, Denies poor appetite, Denies weakness, Denies weight loss Eyes: denies decreased vision, denies diplopia, denies discharge, denies pain Ears: deny: decreased hearing Ears, nose, mouth and throat: Denies dental pain, Denies headache, Denies nasal discharge, Denies nose pain Cardiovascular: Denies chest pain, Denies decreased exercise tolerance, Denies edema, Denies high blood pressure, Denies irregular heart beat, Denies palpitations, Denies paroxysmal nocturnal dyspnea, Denies rapid heart beat, Denies shortness of breath Respiratory: Denies congestion, Denies cough, Denies cough with sputum, Denies dyspnea, Denies home oxygen, Denies wheezing Gastrointestinal: Endorses abdominal pain, Denies change in bowel habits, Denies coffee ground emesis, Denies early satiety, Denies excessive gas, Denies heartburn, Denies hematemesis, Denies hematochezia, Denies loss of appetite, Denies nausea, Denies vomiting Genitourinary: Denies dysuria, endorses flank pain, endorses kidney stones, Denies menorrhagia, endorses urgency, endorses urinary frequency Musculoskeletal: Denies gait dysfunction, Denies limitation of motion, Denies morning stiffness, Denies muscle cramps Integumentary: Denies rash, Denies wounds, Denies brittle nails, Denies change in hair/nails, Denies darkening of skin Neurological: Denies balance difficulties, Denies change in speech, Denies double vision, Denies gait dysfunction, Denies loss of vision, Denies motor disturbance, Denies numbness, Denies paralysis, Denies paresthesias, Denies seizures Psychiatric: Denies anxiety, Denies depression Endocrine: Denies excessive sweating, Denies excessive thirst, Denies high blood sugars, Denies palpitations Hematologic/Lymphatic: Denies easy bruising, Denies lymphadenopathy Physical exam General Appearance: Alert, cooperative, no distress, 80-year-old appears stated age. Appears frail Neck HEENT: Supple, no lymphadenopathy, no thyroid enlargement, no carotid bruits. Lungs: Clear to auscultation without crackles or wheezes no rhonchi, no deformity. Chest Wall: Chest wall normal expansion with deep inspiration no tenderness and no deformity was found on exam, no costochondral pain or discomfort. Heart: Regular rate and rhythm, S1, S2 normal,3/6 systolic murmur, no diastolic murmur, no rub no S3 or S4 gallop, no click Back: Symmetric, no curvature, ROM normal, no CVA tenderness. Abdomen: Soft, mild tenderness in the suprapubic area, no flank tenderness, no rebound or rigidity, no hepatosplenomegaly. Extremities: Extremities normal, atraumatic, no cyanosis or edema. Pulses: 2+ and symmetric. Skin: Skin color, texture, tugor normal, no rashes or lesions. Neurologic: Alert oriented x3 cranial nerves II through XII intact, no motor deficit, no abnormal balance or gait Assessment and plan 1. Acute hematuria with history of kidney stones. Has been seen urology still on IV hydration and pain management symptom are slightly better continue Mcgovern catheter at this point patient to be discharged to the catheter will require to go for cystoscopy and further intervention as an outpatient, apparently seen Dr. Merritt's office decision is to leave the catheter today seen by him in the next week or so. 2. acute kidney injury on chronic kidney disease rule out obstructive uropathy Baseline creatinine 1.5, significant improvement in his creatinine on hydration continue current management we'll leave the catheter in until his intervention with urologist on. 3. Coronary artery disease status post times CABG 1999 to continue Plavix continue metoprolol 50 by mouth daily 4. BPH. Flomax 0.4 mg daily with no real sinus obstruction from BPH. 5. Chronic diastolic congestive heart failure hold Lasix which will be continued as an outpatient upon discharge. 6. Hypertension. Hold Lasix 120 mg daily, hold lisinopril continue Lopressor 50 g twice daily 7. Diabetes mellitus. Hold glipizide on NPH 8 units twice a day Continue insulin sliding scale. Monitor glucose before meals and at bedtime. 8 COPD. Continue DuoNeb as needed 9 Hypothyroid. Levothyroxine 100 g by mouth daily 10. Constipation MiraLAX 17 g by mouth daily 11. History of ulcerative colitis: Still seen gastroenterology and still on dicyclomine no anti-colitis agent. 12 anemia. Hemoglobin was up to 7.8 today has been stable patient is having one unit of iron infusion today before his discharge was still on iron supplement daily. Discharge planning: To be discharged home today. Objective - Vital Signs Vital signs: Vital Signs Temp 98.2 F 07/30/21 05:00 Pulse 75 07/30/21 07:55 Resp 18 07/30/21 05:00 BP 141/54 07/30/21 05:00 Pulse Ox 94 L 07/30/21 05:00 Intake & Output 07/29/21 07/30/21 07/30/21 18:59 06:59 18:59 Intake Total 540 800 Output Total 50 1600 Balance 490 -800 Weight 100.244 kg Intake: Oral 540 800 Output: Urine 1550 Emesis 50 50 Other: Voiding Method Indwelling Catheter Indwelling Catheter # Voids 2 2 - Labs CBC & Chem 7: 07/30/21 06:23 07/29/21 05:36 Labs: Abnormal Lab Results - Last 24 Hours (Table) 07/29/21 07/29/21 07/29/21 Range/Units 11:42 17:23 19:54 WBC (3.8-10.6) k/uL RBC (4.30-5.90) m/uL Hgb (13.0-17.5) gm/dL Hct (39.0-53.0) % MCV (80.0-100.0) fL POC Glucose (mg/dL) 162 H 174 H 230 H (75-99) mg/dL 07/30/21 07/30/21 Range/Units 06:23 07:30 WBC 10.8 H (3.8-10.6) k/uL RBC 2.46 L (4.30-5.90) m/uL Hgb 7.8 L (13.0-17.5) gm/dL Hct 24.7 L (39.0-53.0) % MCV 100.5 H (80.0-100.0) fL POC Glucose (mg/dL) 166 H (75-99) mg/dL Microbiology - Last 24 Hours (Table) 07/28/21 09:49 Urine Culture - Preliminary Urine,Voided Yeast species
[2021-07-30 11:29] LABS: Glucose,Whole Blood 243 mg/dL (75-99)
[2021-07-30 12:26] VITALS: BP 134/61; RESP 16; TEMP 99
[2021-07-30] MEDS: DEXTROSE 5% IN WATER 1,000 ML with SODIUM BICARB (1 MEQ/ML) 150 ML IV SCH (14:02)
[2021-07-30 15:18] VITALS: PULSE 71
== END 2021-07-30 16:15 | disposition home health service (06) | DRG 694 ==
LOC: EC 23:07 → 5NMEDONC 07-26 04:40
PROVIDERS: ADMIT Family Medicine; ATTEND Family Medicine
DX: N13.30 Unspecified hydronephrosis (principal); I13.0 Hypertensive heart and chronic kidney disease with heart failure and stage 1 through stage 4 chronic kidney disease, or unspecified chronic kidney disease; I50.32 Chronic diastolic (congestive) heart failure; K51.90 Ulcerative colitis, unspecified, without complications; E87.2 Acidosis; N17.0 Acute kidney failure with tubular necrosis; I49.5 Sick sinus syndrome; D63.1 Anemia in chronic kidney disease; I95.9 Hypotension, unspecified; E11.22 Type 2 diabetes mellitus with diabetic chronic kidney disease; J44.9 Chronic obstructive pulmonary disease, unspecified; N18.32 Chronic kidney disease, stage 3b; Z79.4 Long term (current) use of insulin; N40.1 Benign prostatic hyperplasia with lower urinary tract symptoms; R31.0 Gross hematuria; R39.15 Urgency of urination; E86.0 Dehydration; D50.9 Iron deficiency anemia, unspecified; E78.5 Hyperlipidemia, unspecified; E03.9 Hypothyroidism, unspecified; I25.10 Atherosclerotic heart disease of native coronary artery without angina pectoris; K59.00 Constipation, unspecified; Z79.02 Long term (current) use of antithrombotics/antiplatelets; Z79.84 Long term (current) use of oral hypoglycemic drugs; Z79.890 Hormone replacement therapy; Z79.899 Other long term (current) drug therapy; Z87.442 Personal history of urinary calculi; Z85.72 Personal history of non-Hodgkin lymphomas; Z92.21 Personal history of antineoplastic chemotherapy; Z92.3 Personal history of irradiation; Z87.891 Personal history of nicotine dependence; Z95.810 Presence of automatic (implantable) cardiac defibrillator; Z95.1 Presence of aortocoronary bypass graft; Z95.5 Presence of coronary angioplasty implant and graft; Z87.39 Personal history of other diseases of the musculoskeletal system and connective tissue; Z87.440 Personal history of urinary (tract) infections; Z86.19 Personal history of other infectious and parasitic diseases; Z98.890 Other specified postprocedural states; Z88.8 Allergy status to other drugs, medicaments and biological substances; Z82.49 Family history of ischemic heart disease and other diseases of the circulatory system; Z84.1 Family history of disorders of kidney and ureter
CPT/HCPCS: 36415; 74176; 76770; 80048; 80053; 81001; 82570; 82728; 83540; 83550; 83735; 83930; 83935; 84133; 84300; 85025; 85027; 87086; 94640; 96365; 99285

== ENCOUNTER 2022-05-11 02:53 | Inpatient (IN) | payer MEDICARE ==
[2022-05-11 03:23] LABS: Glucose,Whole Blood 280 mg/dL (70-110)
[2022-05-11] MEDS ORDERED: SODIUM CHLORIDE 0.9% 1,000 ML IV STA (03:43)
[2022-05-11] MEDS ORDERED: methylPREDNISolone SOD SUCCI 125 MG/2 ML VIAL IV STA (03:43)
[2022-05-11] MEDS ORDERED: IPRATROPIUM-ALBUTEROL 3 ML NEB INHALATION STA (03:43)
[2022-05-11] MEDS ORDERED: AZITHROMYCIN 500 MG in SODIUM CHLORIDE 0.9% 250 ML IVPB STA (03:43)
--- NOTE | 2022-05-11 03:45 | ED ---
SOB HPI - General Chief Complaint: Shortness of Breath Stated Complaint: Difficulty Breathing Time Seen by Provider: 05/11/22 02:55 Source: patient, EMS Mode of arrival: EMS Limitations: no limitations - Related Data Home Medications Medication Instructions Recorded Confirmed Levothyroxine Sodium [Synthroid] 100 mcg PO DAILY 08/04/14 05/23/22 glipiZIDE [Glucotrol XL] 5 mg PO DAILY 08/04/14 05/23/22 Albuterol Nebulized [Ventolin 2.5 mg INHALATION RT-QID 11/05/16 05/23/22 Nebulized] Vit C/E/Zn/Coppr/Lutein/Zeaxan 1 cap PO BID 04/22/18 05/23/22 [Preservision Areds 2 Softgel] Albuterol Inhaler [Ventolin Hfa 2 puff INHALATION RT-QID PRN 07/03/20 05/23/22 Inhaler] Famotidine [Pepcid] 20 mg PO DAILY 09/19/20 05/23/22 Amiodarone [Cordarone] See Taper PO DIRECTED 05/23/22 05/23/22 Darbepoetin Murali [Aranesp] 40 mcg SQ FR 05/23/22 05/23/22 Eucerin Cream 1 applic TOPICAL BID 05/23/22 05/23/22 Glucagon [Gvoke Pfs 1-Pack Syringe] 1 mg SQ Q15M PRN 05/23/22 05/23/22 Insulin Aspart [NovoLOG Flexpen] See Protocol SQ ACHS 05/23/22 05/23/22 Insulin Detemir [Levemir Flextouch 20 units SQ BID@0700,1600 05/23/22 05/23/22 Pen] Insulin Lispro [humaLOG Kwikpen] 4 unit SQ ACHS 05/23/22 05/23/22 Tamsulosin [Flomax] 0.4 mg PO DAILY 05/23/22 05/23/22 predniSONE See Taper PO DIRECTED 05/23/22 05/23/22 Previous Rx's Medication Instructions Recorded Magnesium Oxide [Mag-Ox] 400 mg PO DAILY #30 tablet 07/05/20 Acetaminophen Tab [Tylenol] 650 mg PO Q6HR PRN tab 07/30/21 Ipratropium-Albuterol Nebulize 3 ml INHALATION RT-QID each 05/21/22 [Duoneb 0.5 mg-3 mg/3 ml Soln] Metoprolol Succinate (ER) [Toprol 150 mg PO DAILY tab 05/21/22 XL] QUEtiapine [SEROquel] 25 mg PO HS tab 05/21/22 Sodium Bicarbonate Tab 650 mg PO BID tab 05/21/22 Allergies Allergy/AdvReac Type Severity Reaction Status Date / Time esmolol [From Brevibloc] AdvReac "felt like Verified 05/23/22 15:41 I was going to pass out" Review of Systems ROS Statement: Those systems with pertinent positive or pertinent negative responses have been documented in the HPI. ROS Other: All systems not noted in ROS Statement are negative. Past Medical History Past Medical History: Asthma, Coronary Artery Disease (CAD), Cancer, Diabetes Mellitus, Hyperlipidemia, Hypertension, Thyroid Disorder Additional Past Medical History / Comment(s): ,bladder stones,and urinary infection and cellulitis kailyn legs,lymphoma, chemotherapy, radiation,- 06/2011, colitis History of Any Multi-Drug Resistant Organisms: None Reported Past Surgical History: AICD, Coronary Bypass/CABG, Heart Catheterization With Stent, Orthopedic Surgery, Pacemaker Additional Past Surgical History / Comment(s): Lt ankle - plate. sinus surgery s/t cancer. CABG-4 vessels. pacemaker/defib. [facility] upper left chest Past Anesthesia/Blood Transfusion Reactions: No Reported Reaction Additional Past Anesthesia/Blood Transfusion Reaction / Comment(s): no probles with prior blood transfusion Date of Last Stent Placement:: 2001 Type of Cardiac Device: Permanent Pacemaker, AICD Device Placement Date:: 2001 Past Psychological History: No Psychological Hx Reported Smoking Status: Former smoker Past Alcohol Use History: None Reported Past Drug Use History: None Reported - Past Family History Brother(s) Additional Family Medical History / Comment(s): Patient has 3 brothers and one has history of coronary artery disease. Sister(s) Additional Family Medical History / Comment(s): Patient has one sister with history of SVT and AVR. Son(s) Additional Family Medical History / Comment(s): Patient has 2 sons and one has history of kidney stones. Patient does not have any daughters. Patient has a grandson treated for SVT. Father Family Medical History: No Reported History Additional Family Medical History / Comment(s): Father at age 72 with history of coronary artery disease and CABG Mother Family Medical History: No Reported History Additional Family Medical History / Comment(s): Mother at age 93 with histo ry of coronary artery disease. General Exam Limitations: no limitations Course Vital Signs 05/11/22 05/11/22 05/11/22 02:59 03:02 03:56 Temperature 98.2 F Pulse Rate 100 100 Respiratory 16 Rate Blood Pressure 171/90 O2 Sat by Pulse 93 L 89 L Oximetry 05/11/22 05/11/22 05/11/22 04:00 04:02 05:00 Temperature Pulse Rate 100 104 H 77 Respiratory 16 16 Rate Blood Pressure 170/76 141/75 O2 Sat by Pulse 94 L 94 L Oximetry 05/11/22 06:00 Temperature Pulse Rate 79 Respiratory 16 Rate Blood Pressure 158/80 O2 Sat by Pulse 94 L Oximetry - Reevaluation(s) Reevaluation #1: 05/11/22 medical record is reviewed Patient symptoms are improved here in the ER Patient informed of results and questions answered Medical Decision Making - Lab Data Result diagrams: 05/21/22 07:38 05/21/22 16:30 Lab Results 05/11/22 05/11/22 05/11/22 Range/Units 03:19 04:11 04:11 WBC 8.0 (3.8-10.6) k/uL RBC 3.06 L (4.30-5.90) m/uL Hgb 9.6 L (13.0-17.5) gm/dL Hct 29.9 L (39.0-53.0) % MCV 97.7 (80.0-100.0) fL MCH 31.3 (25.0-35.0) pg MCHC 32.0 (31.0-37.0) g/dL RDW 13.2 (11.5-15.5) % Plt Count 110 L (150-450) k/uL MPV 9.1 Neutrophils % 84 % Lymphocytes % 10 % Monocytes % 3 % Eosinophils % 2 % Basophils % 0 % Neutrophils # 6.8 (1.3-7.7) k/uL Lymphocytes # 0.8 L (1.0-4.8) k/uL Monocytes # 0.2 (0-1.0) k/uL Eosinophils # 0.2 (0-0.7) k/uL Basophils # 0.0 (0-0.2) k/uL Hypochromasia Moderate PT 9.6 (9.0-12.0) sec INR 0.9 (<1.2) APTT 26.0 (22.0-30.0) sec Sodium (137-145) mmol/L Potassium (3.5-5.1) mmol/L Chloride (98-107) mmol/L Carbon Dioxide (22-30) mmol/L Anion Gap mmol/L BUN (9-20) mg/dL Creatinine (0.66-1.25) mg/dL Est GFR (CKD-EPI)AfAm (>60 ml/min/1.73 sqM) Est GFR (CKD-EPI)NonAf (>60 ml/min/1.73 sqM) Glucose (74-99) mg/dL POC Glucose (mg/dL) 280 H (70-110) mg/dL POC Glu [employer] [place] Calcium (8.4-10.2) mg/dL Magnesium (1.6-2.3) mg/dL Total Bilirubin (0.2-1.3) mg/dL AST (17-59) U/L ALT (4-49) U/L Alkaline Phosphatase (38-126) U/L Troponin I (0.000-0.034) ng/mL NT-Pro-B Natriuret Pep pg/mL Total Protein (6.3-8.2) g/dL Albumin (3.5-5.0) g/dL Influenza Type A (PCR) (Not Detectd) Influenza Type B (PCR) (Not Detectd) RSV (PCR) (Not Detectd) SARS-CoV-2 (PCR) (Not Detectd) 05/11/22 05/11/22 05/11/22 Range/Units 04:11 04:11 04:11 WBC (3.8-10.6) k/uL RBC (4.30-5.90) m/uL Hgb (13.0-17.5) gm/dL Hct (39.0-53.0) % MCV (80.0-100.0) fL MCH (25.0-35.0) pg MCHC (31.0-37.0) g/dL RDW (11.5-15.5) % Plt Count (150-450) k/uL MPV Neutrophils % % Lymphocytes % % Monocytes % % Eosinophils % % Basophils % % Neutrophils # (1.3-7.7) k/uL Lymphocytes # (1.0-4.8) k/uL Monocytes # (0-1.0) k/uL Eosinophils # (0-0.7) k/uL Basophils # (0-0.2) k/uL Hypochromasia PT (9.0-12.0) sec INR (<1.2) APTT (22.0-30.0) sec Sodium 139 (137-145) mmol/L Potassium 5.3 H (3.5-5.1) mmol/L Chloride 114 H (98-107) mmol/L Carbon Dioxide 17 L (22-30) mmol/L Anion Gap 8 mmol/L BUN 39 H (9-20) mg/dL Creatinine 2.25 H (0.66-1.25) mg/dL Est GFR (CKD-EPI)AfAm 31 (>60 ml/min/1.73 sqM) Est GFR (CKD-EPI)NonAf 27 (>60 ml/min/1.73 sqM) Glucose 278 H (74-99) mg/dL POC Glucose (mg/dL) (70-110) mg/dL POC Glu [employer] ID Calcium 8.7 (8.4-10.2) mg/dL Magnesium 2.0 (1.6-2.3) mg/dL Total Bilirubin 0.2 (0.2-1.3) mg/dL AST 20 (17-59) U/L ALT 16 (4-49) U/L Alkaline Phosphatase 117 (38-126) U/L Troponin I 0.017 (0.000-0.034) ng/mL NT-Pro-B Natriuret Pep 9960 pg/mL Total Protein 7.7 (6.3-8.2) g/dL Albumin 3.8 (3.5-5.0) g/dL Influenza Type A (PCR) (Not Detectd) Influenza Type B (PCR) (Not Detectd) RSV (PCR) (Not Detectd) SARS-CoV-2 (PCR) (Not Detectd) 05/11/22 Range/Units 04:11 WBC (3.8-10.6) k/uL RBC (4.30-5.90) m/uL Hgb (13.0-17.5) gm/dL Hct (39.0-53.0) % MCV (80.0-100.0) fL MCH (25.0-35.0) pg MCHC (31.0-37.0) g/dL RDW (11.5-15.5) % Plt Count (150-450) k/uL MPV Neutrophils % % Lymphocytes % % Monocytes % % Eosinophils % % Basophils % % Neutrophils # (1.3-7.7) k/uL Lymphocytes # (1.0-4.8) k/uL Monocytes # (0-1.0) k/uL Eosinophils # (0-0.7) k/uL Basophils # (0-0.2) k/uL Hypochromasia PT (9.0-12.0) sec INR (<1.2) APTT (22.0-30.0) sec Sodium (137-145) mmol/L Potassium (3.5-5.1) mmol/L Chloride (98-107) mmol/L Carbon Dioxide (22-30) mmol/L Anion Gap mmol/L BUN (9-20) mg/dL Creatinine (0.66-1.25) mg/dL Est GFR (CKD-EPI)AfAm (>60 ml/min/1.73 sqM) Est GFR (CKD-EPI)NonAf (>60 ml/min/1.73 sqM) Glucose (74-99) mg/dL POC Glucose (mg/dL) (70-110) mg/dL POC Glu [employer] ID Calcium (8.4-10.2) mg/dL Magnesium (1.6-2.3) mg/dL Total Bilirubin (0.2-1.3) mg/dL AST (17-59) U/L ALT (4-49) U/L Alkaline Phosphatase (38-126) U/L Troponin I (0.000-0.034) ng/mL NT-Pro-B Natriuret Pep pg/mL Total Protein (6.3-8.2) g/dL Albumin (3.5-5.0) g/dL Influenza Type A (PCR) Not Detected (Not Detectd) Influenza Type B (PCR) Not Detected (Not Detectd) RSV (PCR) Detected A (Not Detectd) SARS-CoV-2 (PCR) Not Detected (Not Detectd) Disposition Clinical Impression: Acute exacerbation of chronic obstructive airways disease, Fever of unknown origin (FUO), Chest pain, Tachycardia, Acute on chronic renal failure, Dehydration Disposition: ADMITTED IP TO THIS HOSP Condition: Fair Is patient prescribed a controlled substance at d/c from ED?: No Time of Disposition: 05:15
--- NOTE | 2022-05-11 04:11 | XR ---
EXAMINATION TYPE: XR chest 1V portable DATE OF EXAM: 05/11/2022 COMPARISON: 09/29/2020 HISTORY: Chest pain TECHNIQUE: 2 views FINDINGS: Heart is normal. Lungs are clear of infiltrate. There are sternal wires. There are no hilar masses. No heart failure. There is left axillary pacemaker. There is mild linear density in the righ t midlung. IMPRESSION: There is mild subsegmental atelectasis in the right midlung which is new compared to old exam. No heart failure.
[2022-05-11 04:25] LABS: Basophils % (A) 0 %; Eosinophils # (A) 0.2 k/uL (0-0.7); Eosinophils % (A) 2 %; HCT 29.9 % (39.0-53.0); HGB 9.6 gm/dL (13.0-17.5); Hypochromasia Moderate; Lymphocytes # (A) 0.8 k/uL (1.0-4.8); Lymphocytes % (A) 10 %; MCH 31.3 pg (25.0-35.0); MCV 97.7 fL (80.0-100.0); Mean Platelet Volume 9.1; Monocytes # (A) 0.2 k/uL (0-1.0); Monocytes % (A) 3 %; Neutrophils # (A) 6.8 k/uL (1.3-7.7); Neutrophils % (A) 84 %; Platelet Count 110 k/uL (150-450); RBC 3.06 m/uL (4.30-5.90); RDW 13.2 % (11.5-15.5)
[2022-05-11 04:40] LABS: Total Protein 7.7 g/dL (6.3-8.2)
[2022-05-11 04:41] LABS: Albumin 3.8 g/dL (3.5-5.0); Calcium 8.7 mg/dL (8.4-10.2); Potassium 5.3 mmol/L (3.5-5.1); Total Bilirubin 0.2 mg/dL (0.2-1.3)
[2022-05-11 04:46] LABS: INR 0.9 (<1.2); Prothrombin Time 9.6 sec (9.0-12.0)
[2022-05-11] MEDS ORDERED: NALOXONE 0.4 MG/ML 1 ML VIAL IVP PRN (05:15)
[2022-05-11 07:46] LABS: Glucose,Whole Blood 319 mg/dL (70-110)
[2022-05-11] MEDS: IPRATROPIUM-ALBUTEROL 3 ML NEB INHALATION SCH ×4 (08:05→19:19)
[2022-05-11] MEDS ORDERED: DEXTROSE 50% SYRINGE 50 ML IVP PRN ×2 (08:15)
[2022-05-11] MEDS ORDERED: methylPREDNISolone SOD SUCCI 125 MG/2 ML VIAL IV SCH (09:00)
[2022-05-11] MEDS: METOPROLOL SUCCINATE (ER) 50 MG TAB.ER.24H PO SCH (11:29)
[2022-05-11 11:45] LABS: Glucose,Whole Blood 406 mg/dL (70-110)
[2022-05-11] MEDS: INSULIN ASPART (NovoLOG) 100 UNIT/ML VIAL SQ SCH ×3 (12:32→21:03)
[2022-05-11 12:36] LABS: Glucose,Whole Blood 403 mg/dL (70-110)
[2022-05-11] MEDS ORDERED: ACETAMINOPHEN TAB 325 MG TAB PO PRN (14:26)
--- NOTE | 2022-05-11 14:40 | P.HPIM ---
History of Present Illness 81-year-old male came in with complaints of shortness of breath patient does have extensive history does have history of sick sinus syndrome history of coronary artery disease CABG patient has a wheezing on exam. Patient is requiring oxygen usually doesn't use oxygen at home patient has some wheezing on exam patient is found to have C. Sepsis from RSV. Patient is also on heart failure exacerbation with elevated BNP elevated JVD. Patient has chronic diastolic dysfunction. REVIEW OF SYSTEMS: Poor historian PHYSICAL EXAMINATION: GENERAL: The patient is alert and oriented x3, not in any acute distress. Thin built HEENT: Pupils are round and equally reacting to light. EOMI. No scleral icterus. No conjunctival pallor. Normocephalic, atraumatic. No pharyngeal erythema. No thyromegaly. CARDIOVASCULAR: S1 and S2 present. No murmurs, rubs, or gallops. PULMONARY: Mild expiratory wheezing on exam ABDOMEN: Soft, nontender, nondistended, normoactive bowel sounds. No palpable organomegaly. MUSCULOSKELETAL: No joint swelling or deformity. EXTREMITIES: No cyanosis, clubbing, or pedal edema. NEUROLOGICAL: Gross neurological examination did not reveal any focal deficits. SKIN: No rashes. Assessment and plan -Acute hypoxic respiratory failure secondary to COPD exacerbation and RSV infection patient is on empiric anabiotic azithromycin for bronchitis which will be continued and patient will continue with systemic steroids will cut down the dose of steroids because of elevated glucose. -Acute renal failure on chronic kidney disease stage V acute renal failure secondary to hypovolemia IV fluids will be disoriented and patient was started on IV Lasix for a day or 2 monitor kidney function -Hyperchloremic metabolic acidosis secondary to IV fluids -Hyperkalemia secondary to IV fluids -Congestive heart failure chronic diastolic dysfunction with acute exacerbation Coronary artery disease status post CABG continue with home medications with his next and-benign prostatic hypertrophy next and-hypertension next and haven't type 2 diabetes mellitus with uncontrolled elevated blood sugars secondary to systemic steroids patient is on glipizide which will be continued along with sliding scale -Hypertension -History of ulcerative colitis presently not on any medications -Anemia of chronic disease - DVT prophylaxis: Subcutaneous heparin Past Medical History Past Medical History: Asthma, Coronary Artery Disease (CAD), Cancer, Diabetes Mellitus, Hyperlipidemia, Hypertension, Thyroid Disorder Additional Past Medical History / Comment(s): ,bladder stones,and urinary infection and cellulitis kailyn legs,lymphoma, chemotherapy, radiation,- 06/2011, colitis History of Any Multi-Drug Resistant Organisms: None Reported Past Surgical History: AICD, Coronary Bypass/CABG, Heart Catheterization With St ent, Orthopedic Surgery, Pacemaker Additional Past Surgical History / Comment(s): Lt ankle - plate. sinus surgery s/t cancer. CABG-4 vessels. pacemaker/defib. [facility] upper left chest Past Anesthesia/Blood Transfusion Reactions: No Reported Reaction Additional Past Anesthesia/Blood Transfusion Reaction / Comment(s): no probles with prior blood transfusion Date of Last Stent Placement:: 2001 Type of Cardiac Device: Permanent Pacemaker, AICD Device Placement Date:: 2001 Past Psychological History: No Psychological Hx Reported Smoking Status: Former smoker Past Alcohol Use History: None Reported Additional Past Alcohol Use History / Comment(s): Patient quit smoking in 1967. Past Drug Use History: None Reported - Past Family History Brother(s) Family Medical History: Myocardial Infarction ([place]) Additional Family Medical History / Comment(s): Patient has 3 brothers and one has history of coronary artery disease. Sister(s) Additional Family Medical History / Comment(s): Patient has one sister with hist ory of SVT and AVR. Son(s) Additional Family Medical History / Comment(s): Patient has 2 sons and one has history of kidney stones. Patient does not have any daughters. Patient has a grandson treated for SVT. Father Family Medical History: Myocardial Infarction ([place]) Additional Family Medical History / Comment(s): Father at age 72 with history of coronary artery disease and CABG Mother Family Medical History: No Reported History Additional Family Medical History / Comment(s): Mother at age 93 Medications and Allergies Home Medications Medication Instructions Recorded Confirmed Type Levothyroxine Sodium [Synthroid] 100 mcg PO DAILY 08/04/14 05/11/22 History glipiZIDE [Glucotrol XL] 5 mg PO DAILY 08/04/14 05/11/22 History Albuterol Nebulized [Ventolin 2.5 mg INHALATION RT-QID 11/05/16 05/11/22 History Nebulized] Ipratropium Nebulized [Atrovent 0.5 mg INHALATION RT-QID 11/05/16 05/11/22 History Nebulized 0.2 MG/ML] Vit C/E/Zn/Coppr/Lutein/Zeaxan 1 cap PO BID 04/22/18 05/11/22 History [Preservision Areds 2 Softgel] Albuterol Inhaler [Ventolin Hfa 2 puff INHALATION RT-QID PRN 07/03/20 05/11/22 History Inhaler] Magnesium Oxide [Mag-Ox] 400 mg PO DAILY #30 tablet 07/05/20 05/11/22 Rx Clopidogrel [Plavix] 75 mg PO DAILY 09/19/20 05/11/22 History Famotidine [Pepcid] 20 mg PO DAILY 09/19/20 05/11/22 History Acetaminophen Tab [Tylenol] 650 mg PO Q6HR PRN tab 07/30/21 05/11/22 Rx Furosemide [Lasix] 40 mg PO DIRECTED 05/11/22 05/11/22 History Metoprolol Tartrate [Lopressor] 50 mg PO DAILY 05/11/22 05/11/22 History Potassium Chloride ER [K-Dur 20] 20 meq PO DAILY 05/11/22 05/11/22 History Allergies Allergy/AdvReac Type Severity Reaction Status Date / Time esmolol [From Brevibloc] AdvReac "felt like Verified 05/11/22 12:04 I was going to pass out" Physical Exam Vitals: Vital Signs Temp Pulse Pulse Resp BP BP Pulse Ox 05/11/22 11:45 77 18 05/11/22 11:37 75 18 95 05/11/22 09:01 98.1 F 75 19 170/90 93 L 05/11/22 06:00 79 16 158/80 94 L 05/11/22 05:00 77 16 141/75 94 L 05/11/22 04:02 104 H 05/11/22 04:00 100 16 170/76 94 L 05/11/22 03:56 100 05/11/22 03:02 89 L 05/11/22 02:59 98.2 F 100 16 171/90 93 L Intake and Output 05/10/22 05/11/22 05/11/22 22:59 06:59 14:59 Other: Weight 86.183 kg 86.183 kg Results CBC & Chem 7: 05/11/22 04:11 05/11/22 04:11 Labs: Abnormal Lab Results - Last 24 Hours (Table) 05/11/22 05/11/22 05/11/22 Range/Units 03:19 04:11 04:11 RBC 3.06 L (4.30-5.90) m/uL Hgb 9.6 L (13.0-17.5) gm/dL Hct 29.9 L (39.0-53.0) % Plt Count 110 L (150-450) k/uL Lymphocytes # 0.8 L (1.0-4.8) k/uL Potassium 5.3 H (3.5-5.1) mmol/L Chloride 114 H (98-107) mmol/L Carbon Dioxide 17 L (22-30) mmol/L BUN 39 H (9-20) mg/dL Creatinine 2.25 H (0.66-1.25) mg/dL Glucose 278 H (74-99) mg/dL POC Glucose (mg/dL) 280 H (70-110) mg/dL RSV (PCR) (Not Detectd) 05/11/22 05/11/22 05/11/22 Range/Units 04:11 07:45 11:44 RBC (4.30-5.90) m/uL Hgb (13.0-17.5) gm/dL Hct (39.0-53.0) % Plt Count (150-450) k/uL Lymphocytes # (1.0-4.8) k/uL Potassium (3.5-5.1) mmol/L Chloride (98-107) mmol/L Carbon Dioxide (22-30) mmol/L BUN (9-20) mg/dL Creatinine (0.66-1.25) mg/dL Glucose (74-99) mg/dL POC Glucose (mg/dL) 319 H 406 H (70-110) mg/dL RSV (PCR) Detected A (Not Detectd) 05/11/22 Range/Units 12:32 RBC (4.30-5.90) m/uL Hgb (13.0-17.5) gm/dL Hct (39.0-53.0) % Plt Count (150-450) k/uL Lymphocytes # (1.0-4.8) k/uL Potassium (3.5-5.1) mmol/L Chloride (98-107) mmol/L Carbon Dioxide (22-30) mmol/L BUN (9-20) mg/dL Creatinine (0.66-1.25) mg/dL Glucose (74-99) mg/dL POC Glucose (mg/dL) 403 H (70-110) mg/dL RSV (PCR) (Not Detectd) Thrombosis Risk Factor Assmnt - Choose All That Apply Each Factor Represents 1 point: Acute [place], Obesity (BMI >25), Swollen legs (current) Each Risk Factor Represents 3 Points: Age 75 years or older Thrombosis Risk Factor Assessment Total Risk Factor Score: 6 Thrombosis Risk Factor Assessment Level: High Risk
--- NOTE | 2022-05-11 14:54 | P.CNPUL ---
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 Is coming in with increasing dyspnea, chest tightness and wheezing and the patient in emergency department was diagnosed having a positive RSV infection by PCR. Influenza was negative. Covid 19 testing was negative. Chest x-ray was consistent with some mild subsegmental atelectatic changes in the right midlung, no other acute abnormalities noted. Sternal wires were present. He was started on bronchodilators and steroids. He was started also on oxygen therapy and the patient is currently on 2 L O2 nasal cannula. He is s till struggling with his breathing is short of breath. His comorbid conditions include coronary artery disease with previous bypass surgery, hypertension, ulcerative colitis currently inactive and stable, chronic diastolic heart failure and COPD. The patient also has history of lymphoma treated with systemic chemotherapy seems to be in remission since 2011. Review of Systems Constitutional: Reports as per HPI Eyes: denies as per HPI, denies blurred vision, denies bulging eye, denies decreased vision, denies diplopia, denies discharge, denies dry eye, denies irritation, denies itching, denies pain, denies photophobia, denies loss of peripheral vision, denies loss of vision, denies tunnel vision/blind spots Ears: deny: decreased hearing, ear discharge, earache, tinnitus Ears, nose, mouth and throat: Reports as per HPI Breasts: absent: as per HPI, gynecomastia Cardiovascular: Reports decreased exercise tolerance, Reports dyspnea on exertion, Reports shortness of breath Respiratory: Reports cough, Reports dyspnea, Reports wheezing Genitourinary: Reports as per HPI Musculoskeletal: Reports as per HPI Musculoskeletal: absent: ankle pain, ankle stiffness, ankle swelling Integumentary: Reports as per HPI Neurological: Reports as per HPI Psychiatric: Reports as per HPI Endocrine: Reports as per HPI Hematologic/Lymphatic: Reports as per HPI Allergic/Immunologic: Reports as per HPI Past Medical History Past Medical History: Coronary Artery Disease (CAD), Cancer, COPD, Diabetes Mellitus, Hyperlipidemia, Hypertension, Thyroid Disorder Additional Past Medical History / Comment(s): ,bladder stones,and urinary infection and cellulitis kailyn legs,lymphoma, chemotherapy, radiation,- 06/2011, colitis History of Any Multi-Drug Resistant Organisms: None Reported Past Surgical History: AICD, Coronary Bypass/CABG, Heart Catheterization With Stent, Orthopedic Surgery, Pacemaker Additional Past Surgical History / Comment(s): Lt ankle - plate. sinus surgery s/t cancer. CABG-4 vessels. pacemaker/defib. [facility] upper left chest Past Anesthesia/Blood Transfusion Reactions: No Reported Reaction Additional Past Anesthesia/Blood Transfusion Reaction / Comment(s): no probles with prior blood transfusion Date of Last Stent Placement:: 2001 Type of Cardiac Device: Permanent Pacemaker, AICD Device Placement Date:: 2001 Past Psychological History: No Psychological Hx Reported Smoking Status: Former smoker Past Alcohol Use History: None Reported Additional Past Alcohol Use History / Comment(s): Patient quit smoking in 1967. Past Drug Use History: None Reported - Past Family History Brother(s) Family Medical History: Myocardial Infarction (CT) Additional Family Medical History / Comment(s): Patient has 3 brothers and one has history of coronary artery disease. Sister(s) Additional Family Medical History / Comment(s): Patient has one sister with history of SVT and AVR. Son(s) Additional Family Medical History / Comment(s): Patient has 2 sons and one has history of kidney stones. Patient does not have any daughters. Patient has a grandson treated for SVT. Father Family Medical History: Myocardial Infarction (CT) Additional Family Medical History / Comment(s): Father at age 72 with history of coronary artery disease and CABG Mother Family Medical History: No Reported History Additional Family Medical History / Comment(s): Mother at age 93 Medications and Allergies Home Medications Medication Instructions Recorded Confirmed Type Levothyroxine Sodium [Synthroid] 100 mcg PO DAILY 08/04/14 05/11/22 History glipiZIDE [Glucotrol XL] 5 mg PO DAILY 08/04/14 05/11/22 History Albuterol Nebulized [Ventolin 2.5 mg INHALATION RT-QID 11/05/16 05/11/22 History Nebulized] Ipratropium Nebulized [Atrovent 0.5 mg INHALATION RT-QID 11/05/16 05/11/22 History Nebulized 0.2 MG/ML] Vit C/E/Zn/Coppr/Lutein/Zeaxan 1 cap PO BID 04/22/18 05/11/22 History [Preservision Areds 2 Softgel] Albuterol Inhaler [Ventolin Hfa 2 puff INHALATION RT-QID PRN 07/03/20 05/11/22 History Inhaler] Magnesium Oxide [Mag-Ox] 400 mg PO DAILY #30 tablet 07/05/20 05/11/22 Rx Clopidogrel [Plavix] 75 mg PO DAILY 09/19/20 05/11/22 History Famotidine [Pepcid] 20 mg PO DAILY 09/19/20 05/11/22 History Acetaminophen Tab [Tylenol] 650 mg PO Q6HR PRN tab 07/30/21 05/11/22 Rx Furosemide [Lasix] 40 mg PO DIRECTED 05/11/22 05/11/22 History Metoprolol Tartrate [Lopressor] 50 mg PO DAILY 05/11/22 05/11/22 History Potassium Chloride ER [K-Dur 20] 20 meq PO DAILY 05/11/22 05/11/22 History Allergies Allergy/AdvReac Type Severity Reaction Status Date / Time esmolol [From Brevibloc] AdvReac "felt like Verified 05/11/22 12:04 I was going to pass out" Physical Exam Vitals: Vital Signs Temp Pulse Pulse Resp BP BP Pulse Ox 05/11/22 11:45 77 18 05/11/22 11:37 75 18 95 05/11/22 09:01 98.1 F 75 19 170/90 93 L 05/11/22 06:00 79 16 158/80 94 L 05/11/22 05:00 77 16 141/75 94 L 05/11/22 04:02 104 H 05/11/22 04:00 100 16 170/76 94 L 05/11/22 03:56 100 05/11/22 03:02 89 L 05/11/22 02:59 98.2 F 100 16 171/90 93 L Intake and Output 05/10/22 05/11/22 05/11/22 22:59 06:59 14:59 Other: Weight 86.183 kg 86.183 kg - Constitutional General appearance: average body habitus, mild distress, currently on 2 L O2 nasal cannula - EENT Eyes: anicteric sclerae, EOMI, PERRLA, no ptosis, no scleral icterus, normal appearance ENT: hard of hearing, NA/AT, normal oropharynx Ears: bilateral: normal - Neck Neck: no lymphadenopathy, normal ROM, no rigidity, no stridor, no thyromegaly Carotids: bilateral: upstroke delayed - Respiratory Respiratory: bilateral: diminished, prolonged expiration, negative: dullness, rales, rhonchi, wheezing - Cardiovascular Rhythm: regular Heart sounds: normal: S1, S2 Abnormal Heart Sounds: systolic murmur - Gastrointestinal General gastrointestinal: normal bowel sounds, soft, tenderness (left lower quadrant) - Integumentary Integumentary: normal, normal turgor (there sever Xerosis of both legs with thick sloughing skin.) - Neurologic Neurologic: CNII-XII intact - Musculoskeletal Musculoskeletal: gait normal, generalized weakness - Psychiatric Psychiatric: A&O x's 3, appropriate affect, intact judgment & insight Results - Laboratory Findings CBC and BMP: 05/11/22 04:11 05/11/22 04:11 PT/INR, D-dimer PT 9.6 sec (9.0-12.0) 05/11/22 04:11 INR 0.9 (<1.2) 05/11/22 04:11 Abnormal lab findings: Abnormal Labs 05/11/22 05/11/22 05/11/22 03:19 04:11 04:11 RBC 3.06 L Hgb 9.6 L Hct 29.9 L Plt Count 110 L Lymphocytes # 0.8 L Potassium 5.3 H Chloride 114 H Carbon Dioxide 17 L BUN 39 H Creatinine 2.25 H Glucose 278 H POC Glucose (mg/dL) 280 H RSV (PCR) 05/11/22 05/11/22 05/11/22 04:11 07:45 11:44 RBC Hgb Hct Plt Count Lymphocytes # Potassium Chloride Carbon Dioxide BUN Creatinine Glucose POC Glucose (mg/dL) 319 H 406 H RSV (PCR) Detected A 05/11/22 12:32 RBC Hgb Hct Plt Count Lymphocytes # Potassium Chloride Carbon Dioxide BUN Creatinine Glucose POC Glucose (mg/dL) 403 H RSV (PCR) - Diagnostic Findings Chest x-ray: image reviewed Assessment and Plan Plan: Acute RSV infection. Acute exacerbation of COPD with secondary shortness of breath Acute hypoxic respiratory failure secondary to above Dyspnea secondary to above Coronary artery disease with previous bypass surgery. Sick sinus syndrome with a pacemaker History of congestion heart failure, systolic versus diastolic Hypertension Hyperlipidemia BPH Remote history of lymphoma, completed systemic chemotherapy and the patient has been in remission Diabetes mellitus Chronic stage III kidney disease History of nephrolithiasis Previous history of the left lower extremities History of ulcerative colitis History of chronic anemia Plan Agree on the current treatment Oxygen therapy Titrate up at Coumadin saturation above 90% Continue bronchodilators Continue steroids Patient is currently on IV Solu-Medrol Resume all medications We'll follow
[2022-05-11] MEDS ORDERED: ALBUTEROL NEBULIZED 2.5 MG/3 ML INHALATION SCH (16:00)
[2022-05-11 16:43] LABS: Glucose,Whole Blood 392 mg/dL (70-110)
[2022-05-11] MEDS: FUROSEMIDE 10 MG/ML 4 ML VIAL IV SCH (16:47)
[2022-05-11] MEDS: LEVOTHYROXINE 100 MCG TAB PO SCH (18:04)
[2022-05-11 20:50] LABS: Glucose,Whole Blood 356 mg/dL (70-110)
[2022-05-11] MEDS: methylPREDNISolone SOD SUCCI 40 MG/ML 1 ML VIAL IV SCH (21:03)
[2022-05-12] MEDS: ALBUTEROL NEBULIZED 2.5 MG/3 ML INHALATION PRN (05:47)
[2022-05-12 06:07] LABS: Glucose,Whole Blood 222 mg/dL (70-110)
[2022-05-12] MEDS: LEVOTHYROXINE 100 MCG TAB PO SCH (06:47)
[2022-05-12] MEDS: INSULIN ASPART (NovoLOG) 100 UNIT/ML VIAL SQ SCH ×4 (06:47→21:55)
[2022-05-12] MEDS: AZITHROMYCIN 500 MG TAB PO SCH (07:20)
[2022-05-12] MEDS: IPRATROPIUM-ALBUTEROL 3 ML NEB INHALATION SCH ×4 (08:22→21:39)
[2022-05-12 09:22] LABS: Magnesium 2.1 mg/dL (1.5-2.4)
[2022-05-12 09:35] LABS: Anion Gap 13.1 mmol/L (10.00-18.00); Blood Urea Nitrogen 52.9 mg/dL (9.0-27.0); Calcium 8.8 mg/dL (8.7-10.3); Carbon Dioxide 16.9 mmol/L (20.0-27.5); Non-African American GFR(CKD) 25.9 (60.0-200.0); Potassium 4.7 mmol/L (3.5-5.5)
[2022-05-12] MEDS: CLOPIDOGREL 75 MG TAB PO SCH (09:36)
[2022-05-12] MEDS: FAMOTIDINE 20 MG TAB PO SCH (09:36)
[2022-05-12] MEDS: METOPROLOL SUCCINATE (ER) 50 MG TAB.ER.24H PO SCH (09:36)
[2022-05-12] MEDS: FUROSEMIDE 10 MG/ML 4 ML VIAL IV SCH (10:52)
[2022-05-12 11:39] LABS: Glucose,Whole Blood 291 mg/dL (70-110)
[2022-05-12] MEDS: methylPREDNISolone SOD SUCCI 125 MG/2 ML VIAL IV SCH ×2 (12:17→17:26)
[2022-05-12] MEDS: SYMBICORT 160-4.5 MCG INHALER INHALATION SCH ×3 (13:11→21:54)
--- NOTE | 2022-05-12 14:49 | P.PN ---
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 Is coming in with increasing dyspnea, chest tightness and wheezing and the padmini ent in emergency department was diagnosed having a positive RSV infection by PCR. Influenza was negative. Covid 19 testing was negative. Chest x-ray was consistent with some mild subsegmental atelectatic changes in the right midlung, no other acute abnormalities noted. Sternal wires were present. He was started on bronchodilators and steroids. He was started also on oxygen therapy and the patient is currently on 2 L O2 nasal cannula. He is still struggling with his breathing is short of breath. His comorbid conditions include coronary artery disease with previous bypass surgery, hypertension, ulcerative colitis currently inactive and stable, chronic diastolic heart failure and COPD. The patient also has history of lymphoma treated with systemic chemotherapy seems to be in remission since 2011. I am evaluating this patient today on 05/12/2022. The patient appears fairly comfortable on 2 L nasal cannula in bed. The patient has an audible expiratory wheeze on auscultation. His IV Solu-Medrol was weaned down, to obtain better glucose control by primary. His most recent CBC count on 05/11/2022 revealed a WBC of 8, hemoglobin 9.6, hematocrit 29.9, platelets 110. Today's BMP from 05/12/2022 shows a sodium 141, potassium of 4.7, chloride of 111, serum CO2 of 16.9, V1 53, creatinine of 2.3, glucose of 214.most recent chest x-ray on 05/11/2022 revealed mild subsegmental atelectasis in the right, mid lung which was new compared to old exam. He is managed on DuoNeb inhalation and IV Solu- Medrol. He is on empiric antibiotic coverage with Zithromax. Objective - Vital Signs Vital signs: Vital Signs Temp 97.5 F L 05/12/22 08:00 Pulse 72 05/12/22 13:16 Resp 17 05/12/22 02:00 BP 140/59 05/12/22 08:00 Pulse Ox 96 05/12/22 08:00 FiO2 Intake & Output 05/11/22 05/12/22 05/12/22 18:59 06:59 18:59 Intake Total 500 Output Total 800 Balance 500 -800 Weight 86.183 kg Intake: Oral 500 Output: Urine 800 Other: Voiding Method External Catheter # Voids 5 - Exam GENERAL EXAM: Alert, in no apparent distress. HEAD: Normocephalic. EYES: Normal reaction of pupils, equal size. NOSE: Clear with pink turbinates. THROAT: No erythema or exudates. NECK: No masses, no JVD. CHEST: No chest wall deformity. LUNGS: Equal air entry with no crackles, rhonchi or dullness. Expiratory wheezes heard anteriorly and posteriorly throughout. CVS: S1 and S2 normal with no audible murmur, regular rhythm. ABDOMEN: No hepatosplenomegaly, normal bowel sounds, no guarding or rigidity. SPINE: No scoliosis or deformity SKIN: No rashes CENTRAL NERVOUS SYSTEM: No focal deficits, tone is normal in all 4 extremities. EXTREMITIES: There is no peripheral edema. No clubbing, no cyanosis. Perip heral pulses are intact. - Labs CBC & Chem 7: 05/11/22 04:11 05/12/22 03:31 Labs: Abnormal Lab Results - Last 24 Hours (Table) 05/11/22 05/11/22 05/12/22 Range/Units 16:43 20:49 03:31 Chloride 111 H (96-109) mmol/L Carbon Dioxide 16.9 L (20.0-27.5) mmol/L BUN 52.9 H (9.0-27.0) mg/dL Creatinine 2.3 H (0.6-1.5) mg/dL Est GFR (CKD-EPI)AfAm 30.0 L (60.0-200.0) Est GFR (CKD-EPI)NonAf 25.9 L (60.0-200.0) BUN/Creatinine Ratio 23.00 H (12.00-20.00) Ratio Glucose 214 H (70-110) mg/dL POC Glucose (mg/dL) 392 H 356 H (70-110) mg/dL 05/12/22 05/12/22 Range/Units 06:06 11:38 Chloride (96-109) mmol/L Carbon Dioxide (20.0-27.5) mmol/L BUN (9.0-27.0) mg/dL Creatinine (0.6-1.5) mg/dL Est GFR (CKD-EPI)AfAm (60.0-200.0) Est GFR (CKD-EPI)NonAf (60.0-200.0) BUN/Creatinine Ratio (12.00-20.00) Ratio Glucose (70-110) mg/dL POC Glucose (mg/dL) 222 H 291 H (70-110) mg/dL Assessment and Plan Assessment: Acute RSV infection. Acute exacerbation of COPD with secondary shortness of breath Acute hypoxic respiratory failure secondary to above Dyspnea secondary to above Coronary artery disease with previous bypass surgery. Sick sinus syndrome with a pacemaker History of congestion heart failure, systolic versus diastolic Hypertension Hyperlipidemia BPH Remote history of lymphoma, completed systemic chemotherapy and the patient has been in remission Diabetes mellitus Chronic stage III kidney disease History of nephrolithiasis Previous history of the left lower extremities History of ulcerative colitis History of chronic anemia Plan: Plan continue 2 L nasal cannula to maintain saturation above 90% Continue bronchodilators add Symbicort inhaler increase IV Solu-Medrol back to 60 mg IVP every 6 hours. Continue diuresis with IV Lasix. total of 10 minutes was spent following up with this patient. Time with Patient: Less than 30
[2022-05-12 15:00] VITALS: BMI 25.7
[2022-05-12] MEDS: INSULIN DETEMIR (LEVEMIR) 100 UNIT/ML SYR SQ SCH ×2 (15:26→21:55)
[2022-05-12 16:48] LABS: Glucose,Whole Blood 307 mg/dL (70-110)
[2022-05-12] MEDS: methylPREDNISolone SOD SUCCI 40 MG/ML 1 ML VIAL IV SCH (17:44)
[2022-05-12 20:17] LABS: Glucose,Whole Blood 338 mg/dL (70-110)
[2022-05-12] MEDS ORDERED: METOPROLOL SUCCINATE (ER) 25 MG TAB.ER.24H PO STA (20:20)
[2022-05-12] MEDS ORDERED: NITROGLYCERIN SL TABS 0.4 MG TAB SUBLINGUAL ONE (20:25)
[2022-05-12] MEDS ORDERED: HEPARIN SODIUM 1,000 UN/ML (10ML VL) IV PRN (20:38)
[2022-05-12] MEDS ORDERED: HEPARIN SODIUM 1,000 UN/ML (10ML VL) IV ONE (20:38)
[2022-05-12] MEDS: HEPARIN SOD,PORK IN 0.45% NACL 25,000 UNIT in 0.45% NACL 1 250ML.BAG IV SCH (20:40)
[2022-05-12 21:28] LABS: INR 0.9 (<1.2); Prothrombin Time 9.9 sec (9.0-12.0)
[2022-05-12] MEDS ORDERED: DILTIAZEM DRIP BOLUS FROM BAG 1 MG SOLN IV ONE (21:38)
[2022-05-12 21:42] LABS: Glucose,Whole Blood 309 mg/dL (70-110)
[2022-05-12] MEDS ORDERED: DEXTROSE 5% IN WATER 100 ML with AMIODARONE 150 MG IV ONE (21:45)
[2022-05-12] MEDS ORDERED: AMIODARONE 360 MG in DEXTROSE 5% IN WATER 200 ML IV ONE ×2 (22:00)
[2022-05-12] MEDS: DILTIAZEM 125 MG in SODIUM CHLORIDE 0.9% 100 ML IV SCH (22:08)
[2022-05-13] MEDS: methylPREDNISolone SOD SUCCI 125 MG/2 ML VIAL IV SCH ×5 (02:01→23:28)
[2022-05-13] MEDS ORDERED: FUROSEMIDE 10 MG/ML 4 ML VIAL IV STA (02:31)
--- NOTE | 2022-05-13 02:51 | P.PN ---
Subjective Progress Note Date: 05/12/22 81-year-old male came in with complaints of shortness of breath patient does have extensive history does have history of sick sinus syndrome history of coronary artery disease CABG patient has a wheezing on exam. Patient is requiring oxygen usually doesn't use oxygen at home patient has some wheezing on exam patient is found to have C. Sepsis from RSV. Patient is also on heart failure exacerbation with elevated BNP elevated JVD. Patient has chronic diastolic dysfunction. 05/12/2022 Patient is seen and evaluated in follow-up with pulmonary following a currently maintained on 2 L via nasal cannula and continues with significant wheezing. Patient was maintained on IV steroids and increased per pulmonary's patient continues to have significant wheezing on exam. Patient does not normally wear oxygen the outpatient setting and recommended to wean FiO2 as tolerated. Patient also being treated with IV Lasix for CHF with diastolic dysfunction acute exacerbation. Denies chest pain or palpitations and reports no significant improvement in shortness of breath as of yet. Patient encouraged increased activity as tolerated. Patient also having extremely elevated blood sugars most likely steroid effect and will continue sliding scale and will also start long-acting. Will change diet to consistent carb. Recommend continued monitoring of Accu-Cheks before meals and at bedtime. Will follow-up with repeat labs in the a.m. REVIEW OF SYSTEMS: Poor historian PHYSICAL EXAMINATION: GENERAL: The patient is alert and oriented x3, not in any acute distress. Thin built HEENT: Pupils are round and equally reacting to light. EOMI. No scleral icterus. No conjunctival pallor. Normocephalic, atraumatic. No pharyngeal erythema. No thyromegaly. CARDIOVASCULAR: S1 and S2 present. No murmurs, rubs, or gallops. PULMONARY: Diminished breath sounds bilaterally with some Mild expiratory whe ezing on exam ABDOMEN: Soft, nontender, nondistended, normoactive bowel sounds. No palpable organomegaly. MUSCULOSKELETAL: No joint swelling or deformity. EXTREMITIES: No cyanosis, clubbing, or pedal edema. NEUROLOGICAL: Gross neurological examination did not reveal any focal deficits. Diffusely weak SKIN: No rashes. Assessment: -Acute hypoxic respiratory failure secondary to COPD exacerbation and RSV infection patient is on empiric anabiotic azithromycin for bronchitis which will be continued and patient will continue with systemic steroids and dose was increased again per pulmonary with significant continued wheezing -Acute renal failure on chronic kidney disease stage V acute renal failure secondary to hypovolemia -Hyperchloremic metabolic acidosis secondary to IV fluids -Hyperkalemia secondary to IV fluids -Congestive heart failure chronic diastolic dysfunction with acute exacerbation -History of Coronary artery disease status post CABG continue -benign prostatic hypertrophy -hypertension -Diabetes mellitus , type II uncontrolled with elevated blood sugars secondary to systemic steroids patient is on glipizide which will be continued along with sliding scale -Hypertension -History of ulcerative colitis presently not on any medications -Anemia of chronic disease -DVT prophylaxis: Subcutaneous heparin Plan: Recommend to continue current medications and management with pulmonary following. Patient was on high-dose IV steroids and having elevated blood sugars have decreased slightly although pulmonary increased to 60 mg every 6 as patient continues with significant wheezing. Blood sugars elevated and will continue sliding scale and also add long-acting and recommended continue Accu-Cheks before meals and at bedtime Recommend repeat labs in the a.m. Patient is maintained on 2 L via nasal cannula and recommended wean FiO2 as tolerated Encouraged to increase activity as tolerated and will have PT evaluate the patient Prognosis is guarded The impression and plan of care has been dictated by Yaquelin Frances, Nurse Practitioner as directed. Dr. Chucho MD I have performed a history and examination and MDM of this patient, discussed the same with the dictator, and agree with the dictator's assessment and plan as written ,documented as a scribe. Based on total visit time, I have performed more than 50% of the visit. Objective - Vital Signs Vital signs: Vital Signs Temp 97.5 F L 05/12/22 08:00 Pulse 64 05/12/22 08:34 Resp 17 05/12/22 02:00 BP 140/59 05/12/22 08:00 Pulse Ox 96 05/12/22 08:00 FiO2 Intake & Output 05/11/22 05/12/22 05/12/22 18:59 06:59 18:59 Intake Total 500 Output Total 800 Balance 500 -800 Weight 86.183 kg Intake: Oral 500 Output: Urine 800 Other: Voiding Method External Catheter # Voids 5 - Labs CBC & Chem 7: 05/11/22 04:11 05/12/22 03:31 Labs: Abnormal Lab Results - Last 24 Hours (Table) 05/11/22 05/11/22 05/11/22 Range/Units 11:44 12:32 16:43 Chloride (96-109) mmol/L Carbon Dioxide (20.0-27.5) mmol/L BUN (9.0-27.0) mg/dL Creatinine (0.6-1.5) mg/dL Est GFR (CKD-EPI)AfAm (60.0-200.0) Est GFR (CKD-EPI)NonAf (60.0-200.0) BUN/Creatinine Ratio (12.00-20.00) Ratio Glucose (70-110) mg/dL POC Glucose (mg/dL) 406 H 403 H 392 H (70-110) mg/dL 05/11/22 05/12/22 05/12/22 Range/Units 20:49 03:31 06:06 Chloride 111 H (96-109) mmol/L Carbon Dioxide 16.9 L (20.0-27.5) mmol/L BUN 52.9 H (9.0-27.0) mg/dL Creatinine 2.3 H (0.6-1.5) mg/dL Est GFR (CKD-EPI)AfAm 30.0 L (60.0-200.0) Est GFR (CKD-EPI)NonAf 25.9 L (60.0-200.0) BUN/Creatinine Ratio 23.00 H (12.00-20.00) Ratio Glucose 214 H (70-110) mg/dL POC Glucose (mg/dL) 356 H 222 H (70-110) mg/dL
[2022-05-13] MEDS: ALBUTEROL NEBULIZED 2.5 MG/3 ML INHALATION PRN (03:26)
[2022-05-13] MEDS: AMIODARONE 450 MG in DEXTROSE 5% IN WATER 250 ML IV SCH ×4 (04:07→17:52)
[2022-05-13 05:30] LABS: Calcium 8.7 mg/dL (8.4-10.2); Potassium 4.2 mmol/L (3.5-5.1)
[2022-05-13] MEDS: LEVOTHYROXINE 100 MCG TAB PO SCH (05:51)
[2022-05-13 05:59] LABS: Glucose,Whole Blood 109 mg/dL (70-110)
[2022-05-13] MEDS: INSULIN ASPART (NovoLOG) 100 UNIT/ML VIAL SQ SCH ×5 (06:05→20:31)
[2022-05-13] MEDS: CLOPIDOGREL 75 MG TAB PO SCH (07:45)
[2022-05-13] MEDS: AZITHROMYCIN 500 MG TAB PO SCH (07:45)
[2022-05-13] MEDS: METOPROLOL SUCCINATE (ER) 50 MG TAB.ER.24H PO SCH (07:45)
[2022-05-13] MEDS: FAMOTIDINE 20 MG TAB PO SCH (07:45)
[2022-05-13] MEDS: FUROSEMIDE 10 MG/ML 4 ML VIAL IV SCH ×2 (07:45→20:38)
[2022-05-13] MEDS: INSULIN DETEMIR (LEVEMIR) 100 UNIT/ML SYR SQ SCH ×2 (07:50→20:38)
[2022-05-13] MEDS: IPRATROPIUM-ALBUTEROL 3 ML NEB INHALATION SCH ×4 (07:50→21:30)
[2022-05-13] MEDS: SYMBICORT 160-4.5 MCG INHALER INHALATION SCH ×2 (07:51→21:30)
--- NOTE | 2022-05-13 08:55 | XR ---
EXAMINATION TYPE: XR chest 1V portable DATE OF EXAM: 05/13/2022 HISTORY: Shortness of breath. COMPARISON: 05/11/2022 TECHNIQUE: Single view of the chest is submitted. FINDINGS: Demonstrated are scattered senescent parenchymal change. There is no evidence for focal infiltrate. The heart is stable. Mild pulmonary venous congestion without overt failure. Dual-lead pacer is in pl digna. Hilar and mediastinal structures are within normal limits. Degenerative changes are seen of the dorsal spine. IMPRESSION: 1. Mild pulmonary venous congestion without overt failure.
[2022-05-13 09:08] LABS: Basophils # (A) 0.02 X 10*3/uL (0.00-0.10); Basophils % (A) 0.1 %; Eosinophils # (A) 0 X 10*3/uL (0.04-0.35); Eosinophils % (A) 0 %; HCT 29.7 % (39.6-50.0); HGB 9.1 g/dL (13.0-17.0); Immature Grans, Automated 0.7 %; Lymphocytes # (A) 1.24 X 10*3/uL (0.90-5.00); Lymphocytes % (A) 6.7 %; MCHC 30.6 g/dL (32.0-37.0); Mean Platelet Volume 10.3 fL (9.5-12.2); Monocytes # (A) 0.49 X 10*3/uL (0.20-1.00); Monocytes % (A) 2.6 %; NRBC Per 100 WBC 0 /100 WBCS (0.0-0.0); Neutrophils # (A) 16.72 X 10*3/uL (1.80-7.70); Neutrophils % (A) 89.9 %; Platelet Count 140 X 10*3/uL (140-440); RBC 3.03 X 10*6/uL (4.40-5.60); RDW 13.6 % (11.5-14.5)
--- NOTE | 2022-05-13 09:59 | P.NPCON ---
History of Present Illness - Reason for Consult acute renal failure - History of Present Illness Patient is an 81-year-old male who has a history of coronary artery disease CK D stage IIIB, type 2 diabetes, hypertension, nephrolithiasis. Patient is is admitted to the hospital with complaints of shortness of breath. He did have low-grade fever at home. Patient has underlying CK D stage IIIB with baseline creatinine of 1.5 from September 2020. Patient had acute kidney injury in July 2021 and the lowest creatinine was at 1.9 on 07/30/2021. Serum creatinine had peaked at 4.8 mg/dL at that time. Patient tested positive for RSV Chest x-ray shows pulmonary venous congestion. Currently maintained on 3 L na ora cannula with O2 sats at 96-97%. Patient has an external catheter and urine output documented at 1.1 L for 24 hours Blood pressure has not been significantly low. 1 reading of 96/68 noted yester day. Otherwise systolic blood pressure has been 112s to 1 30 mmHg Review of Systems As per HPI Past Medical History Past Medical History: Coronary Artery Disease (CAD), Cancer, COPD, Diabetes Mellitus, Hyperlipidemia, Hypertension, Thyroid Disorder Additional Past Medical History / Comment(s): ,bladder stones,and urinary infection and cellulitis kailyn legs,lymphoma, chemotherapy, radiation,- 06/2011, colitis History of Any Multi-Drug Resistant Organisms: None Reported Past Surgical History: AICD, Coronary Bypass/CABG, Heart Catheterization With Stent, Orthopedic Surgery, Pacemaker Additional Past Surgical History / Comment(s): Lt ankle - plate. sinus surgery s/t cancer. CABG-4 vessels. pacemaker/defib. [facility] upper left chest Past Anesthesia/Blood Transfusion Reactions: No Reported Reaction Additional Past Anesthesia/Blood Transfusion Reaction / Comment(s): no probles with prior blood transfusion Date of Last Stent Placement:: 2001 Type of Cardiac Device: Permanent Pacemaker, AICD Device Placement Date:: 2001 Past Psychological History: No Psychological Hx Reported Smoking Status: Former smoker Past Alcohol Use History: None Reported Additional Past Alcohol Use History / Comment(s): Patient quit smoking in 1967. Past Drug Use History: None Reported - Past Family History Brother(s) Family Medical History: Myocardial Infarction ([place]) Additional Family Medical History / Comment(s): Patient has 3 brothers and one has history of coronary artery disease. Sister(s) Additional Family Medical History / Comment(s): Patient has one sister with history of SVT and AVR. Son(s) Additional Family Medical History / Comment(s): Patient has 2 sons and one has history of kidney stones. Patient does not have any daughters. Patient has a grandson treated for SVT. Father Family Medical History: Myocardial Infarction ([place]) Additional Family Medical History / Comment(s): Father at age 72 with history of coronary artery disease and CABG Mother Family Medical History: No Reported History Additional Family Medical History / Comment(s): Mother at age 93 Medications and Allergies Home Medications Medication Instructions Recorded Confirmed Type Levothyroxine Sodium [Synthroid] 100 mcg PO DAILY 08/04/14 05/11/22 History glipiZIDE [Glucotrol XL] 5 mg PO DAILY 08/04/14 05/11/22 History Albuterol Nebulized [Ventolin 2.5 mg INHALATION RT-QID 11/05/16 05/11/22 History Nebulized] Ipratropium Nebulized [Atrovent 0.5 mg INHALATION RT-QID 11/05/16 05/11/22 History Nebulized 0.2 MG/ML] Vit C/E/Zn/Coppr/Lutein/Zeaxan 1 cap PO BID 04/22/18 05/11/22 History [Preservision Areds 2 Softgel] Albuterol Inhaler [Ventolin Hfa 2 puff INHALATION RT-QID PRN 07/03/20 05/11/22 History Inhaler] Magnesium Oxide [Mag-Ox] 400 mg PO DAILY #30 tablet 07/05/20 05/11/22 Rx Clopidogrel [Plavix] 75 mg PO DAILY 09/19/20 05/11/22 History Famotidine [Pepcid] 20 mg PO DAILY 09/19/20 05/11/22 History Acetaminophen Tab [Tylenol] 650 mg PO Q6HR PRN tab 07/30/21 05/11/22 Rx Furosemide [Lasix] 40 mg PO DIRECTED 05/11/22 05/11/22 History Metoprolol Tartrate [Lopressor] 50 mg PO DAILY 05/11/22 05/11/22 History Potassium Chloride ER [K-Dur 20] 20 meq PO DAILY 05/11/22 05/11/22 History Allergies Allergy/AdvReac Type Severity Reaction Status Date / Time esmolol [From Brevibloc] AdvReac "felt like Verified 05/11/22 12:04 I was going to pass out" Physical Exam Vitals: Vital Signs Temp Pulse Pulse Resp BP Pulse Ox 05/13/22 08:08 64 05/13/22 08:00 96.3 F L 61 22 154/69 97 05/13/22 07:51 60 05/13/22 04:00 97.7 F 62 18 134/63 96 05/13/22 03:45 62 05/13/22 03:29 60 05/13/22 00:00 97.9 F 77 18 127/60 98 05/12/22 23:45 127/60 05/12/22 23:30 134/60 05/12/22 23:15 128/63 05/12/22 23:00 130/68 05/12/22 22:45 112/73 05/12/22 22:30 119/71 05/12/22 22:15 112/71 05/12/22 21:50 108 H 05/12/22 21:40 104 H 05/12/22 20:50 148 H 20 110/69 97 05/12/22 20:33 156 H 124/76 05/12/22 20:09 148 H 20 111/77 97 05/12/22 20:00 97.5 F L 152 H 20 96/68 97 05/12/22 17:01 72 05/12/22 16:48 76 05/12/22 14:00 98.1 F 65 18 146/68 97 05/12/22 13:16 72 05/12/22 13:02 72 Intake and Output 05/12/22 05/13/22 05/13/22 22:59 06:59 14:59 Intake Total 189.97 Output Total 1125 450 Balance -1125 189.97 -450 Intake: Intake, IV Titration 189.97 Amount Amiodarone 360 mg In 99.99 Dextrose 5% in Water 200 ml @ 1 MG/MIN 33.333 mls/ hr IV .Q6H [facility] Rx#: [id number] Amiodarone 450 mg In 49.98 Dextrose 5% in Water 250 ml @ 0.5 MG/MIN 16.667 mls/hr IV .Q15H [facility] Rx#: [id number] Diltiazem 125 mg In 40 Sodium Chloride 0.9% 100 ml @ 5 MG/HR 5 mls/hr IV .Q24H [facility] Rx#:[id number] Output: Urine 1125 450 Other: Voiding Method External Catheter External Catheter Awake, short of breath No acute distress Examination of the heart S1 and S2 Examination lungs bilateral rhonchi are heard with basal crackles Abdomen is soft nontender Examination of lower extremities shows no significant edema TUYERE FITTER exam 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 Results - Lab Results Most recent lab results Calcium 8.7 mg/dL (8.4-10.2) 05/13/22 04:31 Magnesium 2.1 mg/dL (1.5-2.4) 05/12/22 03:31 05/13/22 04:31 05/13/22 04:31 Assessment and Plan Assessment: 1. Acute kidney injury, cardiorenal, rule out urine retention. Check UA. Blood pressure had been on the lower side yesterday which most likely contributing to the acute kidney injury as well. 2. CK D stage III B with baseline creatinine about 1.5 mg/dL in September 2020 with episode of acute kidney injury in July 2021 with peak creatinine at about 4 mg/dL and lowest at 1.9 on 07/30/2021. 3. Non-gap metabolic acidosis secondary to acute kidney injury 4. Acute on top of chronic systolic CHF. Ejection fraction 40-45% in June 2020 5. Acute hypoxic respiratory failure secondary to RSV and component of CHF 6. History of COPD 7. Acute CO maintained on IV heparin Plan: Increase Lasix to 40 IV twice a day Check bladder scan Check ultrasound of the kidneys Check urine analysis Repeat labs in a.m. Avoid nephrotoxic agents. Thank you for the consultation. We will continue to follow the patient with you during his hospitalization
--- NOTE | 2022-05-13 11:05 | US ---
EXAMINATION TYPE: US kidneys/renal and bladder DATE OF EXAM: 05/13/2022 COMPARISON: US & CT CLINICAL HISTORY: roge. ROGE EXAM MEASUREMENTS: Right Kidney: 10.4 x 5.2 x 5.4 cm Left Kidney: 10.1 x 4.7 x 5.1 cm Right Kidney: Moderate hydro, cyst lateral/lower pole= 4.9 x 3.5 x 2.7 cm Left Kidney: Moderate hydro, limited views due to pt immobility and position Bladder: Pt has suction catheter in bladder IMPRESSION: Moderate hydronephrosis bilaterally.
--- NOTE | 2022-05-13 11:24 | P.PN ---
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 Is coming in with increasing dyspnea, chest tightness and wheezing and the patient in emergency department was diagnosed having a positive RSV infection by PCR. Influenza was negative. Covid 19 testing was negative. Chest x-ray was consistent with some mild subsegmental atelectatic changes in the right midlung, no other acute abnormalities noted. Sternal wires were present. He was started on bronchodilators and steroids. He was started also on oxygen therapy and the patient is currently on 2 L O2 nasal cannula. He is still struggling with his breathing is short of breath. His comorbid conditions include coronary artery disease with previous bypass surgery, hypertension, ulcerative colitis currently inactive and stable, chronic diastolic heart failure and COPD. The patient also has history of lymphoma treated with systemic chemotherapy seems to be in remission since 2011. I am evaluating this patient today on 05/12/2022. The patient appears fairly comfortable on 2 L nasal cannula in bed. The patient has an audible expiratory wheeze on auscultation. His IV Solu-Medrol was weaned down, to obtain better glucose control by primary. His most recent CBC count on 05/11/2022 revealed a WBC of 8, hemoglobin 9.6, hematocrit 29.9, platelets 110. Today's BMP from 05/12/2022 shows a sodium 141, potassium of 4.7, chloride of 111, serum CO2 of 16.9, V1 53, creatinine of 2.3, glucose of 214.most recent chest x-ray on 05/11/2022 revealed mild subsegmental atelectasis in the right, mid lung which was new compared to old exam. He is managed on DuoNeb inhalation and IV Solu- Medrol. He is on empiric antibiotic coverage with Zithromax. The patient is seen today 05/13/2022 in follow-up on the selective care unit. He is currently maintaining O2 saturations in the 90s on 2 L/m per nasal cannula. Follow-up chest x-ray reveals mild pulmonary venous congestion without overt failure. White count 18.6. Hemoglobin 9.1. Platelets 140. Sodium 144. Potassium 4.2. Bicarb 17. BUN 68. Creatinine 2.72. Troponins 22.7. ProBNP 26,800. Glucose 166. Ultrasound of the kidneys/bladder revealed moderate hydronephrosis bilaterally. Last evening he developed atrial flutter with a rapid ventricular response and significant chest discomfort with noted ST depression. Rapid response team was called and he was transferred to the [facility]. He's been initiated on amiodarone drip. He is on Lasix 40 mg IV every 12 hours. Remains on a heparin drip per weight base protocol. He is continued on DuoNeb inhalations, Symbicort, IV solu Medrol. Remains on empiric antibiotics in the form of azithromycin. Objective - Vital Signs Vital signs: Vital Signs Temp 96.3 F L 05/13/22 08:00 Pulse 64 05/13/22 08:08 Resp 22 05/13/22 08:00 BP 154/69 05/13/22 08:00 Pulse Ox 97 05/13/22 08:00 FiO2 Intake & Output 05/12/22 05/13/22 05/13/22 18:59 06:59 18:59 Intake Total 189.97 Output Total 1125 450 Balance -1125 189.97 -450 Weight 86.183 kg Intake: Intake, IV Titration 189.97 Amount Amiodarone 360 mg In 99.99 Dextrose 5% in Water 200 ml @ 1 MG/MIN 33.333 mls/ hr IV .Q6H [facility] Rx#: [id number] Amiodarone 450 mg In 49.98 Dextrose 5% in Water 250 ml @ 0.5 MG/MIN 16.667 mls/hr IV .Q15H [facility] Rx#: [id number] Diltiazem 125 mg In 40 Sodium Chloride 0.9% 100 ml @ 5 MG/HR 5 mls/hr IV .Q24H [facility] Rx#:[id number] Output: Urine 1125 450 Other: Voiding Method External Catheter - Exam GENERAL EXAM: Alert, pleasant 81-year-old male patient, on 3 L nasal cannula, comfortable in no apparent distress. HEAD: Normocephalic. EYES: Normal reaction of pupils, equal size. NOSE: Clear with pink turbinates. THROAT: No erythema or exudates. NECK: No masses, no JVD. CHEST: No chest wall deformity. LUNGS: Equal air entry with faint crackles in the posterior bases. CVS: S1 and S2 normal with no audible murmur, regular rhythm. ABDOMEN: No hepatosplenomegaly, normal bowel sounds, no guarding or rigidity. SPINE: No scoliosis or deformity SKIN: No rashes CENTRAL NERVOUS SYSTEM: No focal deficits, tone is normal in all 4 extremities. EXTREMITIES: There is no peripheral edema. No clubbing, no cyanosis. Peripheral pulses are intact. - Labs CBC & Chem 7: 05/13/22 04:31 05/13/22 04:31 Labs: Abnormal Lab Results - Last 24 Hours (Table) 05/12/22 05/12/22 05/12/22 Range/Units 09:47 11:38 16:47 WBC (4.50-10.00) X 10*3/uL RBC (4.40-5.60) X 10*6/uL Hgb (13.0-17.0) g/dL Hct (39.6-50.0) % MCV (80.0-97.0) fL MCHC (32.0-37.0) g/dL Immature Gran # (0.00-0.04) X 10*3/uL Neutrophils # (1.80-7.70) X 10*3/uL Eosinophils # (0.04-0.35) X 10*3/uL APTT (22.0-30.0) sec Chloride (98-107) mmol/L Carbon Dioxide (22-30) mmol/L BUN (9-20) mg/dL Creatinine (0.66-1.25) mg/dL Glucose (74-99) mg/dL POC Glucose (mg/dL) 291 H 307 H (70-110) mg/dL Hemoglobin A1c 9.9 H (0.0-6.0) % Troponin I (0.000-0.034) ng/mL 05/12/22 05/12/22 05/12/22 Range/Units 20:14 20:45 21:40 WBC (4.50-10.00) X 10*3/uL RBC (4.40-5.60) X 10*6/uL Hgb (13.0-17.0) g/dL Hct (39.6-50.0) % MCV (80.0-97.0) fL MCHC (32.0-37.0) g/dL Immature Gran # (0.00-0.04) X 10*3/uL Neutrophils # (1.80-7.70) X 10*3/uL Eosinophils # (0.04-0.35) X 10*3/uL APTT (22.0-30.0) sec Chloride (98-107) mmol/L Carbon Dioxide (22-30) mmol/L BUN (9-20) mg/dL Creatinine (0.66-1.25) mg/dL Glucose (74-99) mg/dL POC Glucose (mg/dL) 338 H 309 H (70-110) mg/dL Hemoglobin A1c (0.0-6.0) % Troponin I 0.657 H* (0.000-0.034) ng/mL 05/12/22 05/13/22 05/13/22 Range/Units 22:58 04:31 04:31 WBC 18.60 H (4.50-10.00) X 10*3/uL RBC 3.03 L (4.40-5.60) X 10*6/uL Hgb 9.1 L (13.0-17.0) g/dL Hct 29.7 L (39.6-50.0) % MCV 98.0 H (80.0-97.0) fL MCHC 30.6 L (32.0-37.0) g/dL Immature Gran # 0.13 H (0.00-0.04) X 10*3/uL Neutrophils # 16.72 H (1.80-7.70) X 10*3/uL Eosinophils # 0 L (0.04-0.35) X 10*3/uL APTT (22.0-30.0) sec Chloride (98-107) mmol/L Carbon Dioxide (22-30) mmol/L BUN (9-20) mg/dL Creatinine (0.66-1.25) mg/dL Glucose (74-99) mg/dL POC Glucose (mg/dL) (70-110) mg/dL Hemoglobin A1c (0.0-6.0) % Troponin I 1.400 H* 22.700 H* (0.000-0.034) ng/mL 05/13/22 05/13/22 Range/Units 04:31 04:31 WBC (4.50-10.00) X 10*3/uL RBC (4.40-5.60) X 10*6/uL Hgb (13.0-17.0) g/dL Hct (39.6-50.0) % MCV (80.0-97.0) fL MCHC (32.0-37.0) g/dL Immature Gran # (0.00-0.04) X 10*3/uL Neutrophils # (1.80-7.70) X 10*3/uL Eosinophils # (0.04-0.35) X 10*3/uL APTT 51.7 H (22.0-30.0) sec Chloride 114 H (98-107) mmol/L Carbon Dioxide 17 L (22-30) mmol/L BUN 68 H (9-20) mg/dL Creatinine 2.72 H (0.66-1.25) mg/dL Glucose 166 H (74-99) mg/dL POC Glucose (mg/dL) (70-110) mg/dL Hemoglobin A1c (0.0-6.0) % Troponin I (0.000-0.034) ng/mL Assessment and Plan Assessment: Acute RSV infection. Acute exacerbation of COPD with secondary shortness of breath Acute hypoxic respiratory failure secondary to above Acute atrial flutter with rapid ventricular response Acute non-ST segment elevation myocardial infarction Bilateral hydronephrosis Coronary artery disease with previous bypass surgery. Sick sinus syndrome with a pacemaker History of congestion heart failure, systolic versus diastolic Hypertension Hyperlipidemia BPH Remote history of lymphoma, completed systemic chemotherapy and the patient has been in remission Diabetes mellitus Chronic stage III kidney disease History of nephrolithiasis Previous history of the left lower extremities History of ulcerative colitis History of chronic anemia Plan: The patient was seen and evaluated Chest x-ray, labs and medications reviewed Currently stable and on 3 L nasal cannula Continued on bronchodilators, IV Cymetra Developed atrial flutter with rapid ventricular response last evening Elevated troponins Currently on amiodarone drip, heparin drip Continued on IV diuretics Prognosis is guarded We will continue to follow and make further recommendations based on his clinical status I have personally seen and examined the patient, performed the documentation and the assessment and plan as written. Number of minutes spent on the visit: 10.
[2022-05-13 11:32] LABS: Glucose,Whole Blood 90 mg/dL (70-110)
[2022-05-13] MEDS ORDERED: QUEtiapine 25 MG TAB PO STA (12:08)
--- NOTE | 2022-05-13 12:08 | P.CRDCN ---
History of Present Illness History of present illness: HISTORY OF PRESENTING ILLNESS Patient is a pleasant 81-year-old male with history of CAD status post CABG 2001 ischemic cardiomyopathy status post AICD, [facility], hypertension, diabetes chapin itus type 2, paroxysmal atrial fibrillation not on anticoagulation previously secondary to GI bleeding and hyperlipidemia. He had previously followed with Dr. Bravo however states has been following with a new technical fellow and patient is unsure which one. Previous echo June 2020 showed EF 40-45% however reported decreased EF by more recent echo. Patient presented with shortness of breath and was found to have influenza. Initial EKG had shown sinus rhythm. Patient went into atrial flutter with RVR with heart rate 150 and patient developed chest pain with this. He was attempted with nitro however he did have decrease in blood pressure and additionally was given amiodarone and Cardizem. After approximately 45 minutes he did have return of heart rates into the 60s with what appears to be paced rhythm. White blood cell count did increase from 8.0 up to 18.6. Troponins have been chronically elevated in the past however went from 0.6 up to 1.4 up to 22. ProBNP increased at 26,000. His creatinine has increased from baseline 1.7-2 and 2.2 on presentation up to 2.7. He currently remains on a heparin drip with Plavix and has been on amiodarone drip as well as the metoprolol 50 mg daily. Concern of worsening pulmonary edema and therefore was placed on 40 mg IV twice a day. REVIEW OF SYSTEMS At the time of my exam: CONSTITUTIONAL: Denies fever or chills. CARDIOVASCULAR: +chest pain, +shortness of breath, orthopnea, PND or palpitations. RESPIRATORY: Denies cough. GASTROINTESTINAL: Denies abdominal pain, diarrhea, constipation, nausea or vomiting. MUSCULOSKELETAL: Denies myalgias. NEUROLOGIC: Denies numbness, tingling or weakness. ENDOCRINE: Denies fatigue, weight change, polydipsia or polyurina. GENITOURINARY: Denies burning, hematuria or urgency with micturation. HEMATOLOGIC: Denies history of anemia or bleeding. PHYSICAL EXAMINATION Vital signs reviewed. CONSTITUTIONAL: No apparent distress, ill appearing, frail HEENT: Head is normocephalic. Pupils are equal, round. Sclerae anicteric. Mucous membranes of the mouth are moist. No JVD. No carotid bruit. CHEST EXAMINATION: Bilateral crackles and rhonchi HEART EXAMINATION: Regular rate and rhythm. S1, S2 heard. No murmurs, gallops or rub. ABDOMEN: Soft, nontender. Positive bowel sounds. EXTREMITIES: 2+ peripheral pulses, no lower extremity edema and no calf tenderness. NEUROLOGIC EXAMINATION: Patient is awake, alert and oriented x3. ASSESSMENT 1. Non-STEMI likely type II mechanism related to atrial flutter with RVR 2. Typical atrial flutter with RVR heart rates 150s highly symptomatic 3. Acute on chronic respiratory failure related to RSV as well as heart failure 4. Acute on chronic systolic heart failure 5. History of ischemic cardiomyopathy EF ranging from reportedly 25% up to 40- 45% 6. Hypertension 7. CAD status post CABG 8. Chronic kidney disease, mild increase in creatinine PLAN Patient with increased troponin and chest pain mainly related to atrial flutter with RVR. Likely has underlying CAD and admits to history of an revascularized artery treated medically secondary to CKD. Given main change is new onset of atrial flutter we will attempt to treat medically given chronic kidney disease and high risk of placing patient on dialysis if catheterization performed. Continue with amiodarone and increase metoprolol. Interrogate AICD related to evaluate degree of atrial fibrillation/atrial flutter burden. Continue with diuretics and monitor response. Check 2-D echo. Further recommendations to follow Past Medical History Past Medical History: Coronary Artery Disease (CAD), Cancer, COPD, Diabetes Mellitus, Hyperlipidemia, Hypertension, Thyroid Disorder Additional Past Medical History / Comment(s): ,bladder stones,and urinary infection and cellulitis kailyn legs,lymphoma, chemotherapy, radiation,- 06/2011, colitis History of Any Multi-Drug Resistant Organisms: None Reported Past Surgical History: AICD, Coronary Bypass/CABG, Heart Catheterization With Stent, Orthopedic Surgery, Pacemaker Additional Past Surgical History / Comment(s): Lt ankle - plate. sinus surgery s/t cancer. CABG-4 vessels. pacemaker/defib. [facility] upper left chest Past Anesthesia/Blood Transfusion Reactions: No Reported Reaction Additional Past Anesthesia/Blood Transfusion Reaction / Comment(s): no probles with prior blood transfusion Date of Last Stent Placement:: 2001 Type of Cardiac Device: Permanent Pacemaker, AICD Device Placement Date:: 2001 Past Psychological History: No Psychological Hx Reported Smoking Status: Former smoker Past Alcohol Use History: None Reported Additional Past Alcohol Use History / Comment(s): Patient quit smoking in 1967. Past Drug Use History: None Reported - Past Family History Brother(s) Family Medical History: Myocardial Infarction ([place]) Additional Family Medical History / Comment(s): Patient has 3 brothers and one has history of coronary artery disease. Sister(s) Additional Family Medical History / Comment(s): Patient has one sister with history of SVT and AVR. Son(s) Additional Family Medical History / Comment(s): Patient has 2 sons and one has history of kidney stones. Patient does not have any daughters. Patient has a grandson treated for SVT. Father Family Medical History: Myocardial Infarction ([place]) Additional Family Medical History / Comment(s): Father at age 72 with history of coronary artery disease and CABG Mother Family Medical History: No Reported History Additional Family Medical History / Comment(s): Mother at age 93 Medications and Allergies Home Medications Medication Instructions Recorded Confirmed Type Levothyroxine Sodium [Synthroid] 100 mcg PO DAILY 08/04/14 05/11/22 History glipiZIDE [Glucotrol XL] 5 mg PO DAILY 08/04/14 05/11/22 History Albuterol Nebulized [Ventolin 2.5 mg INHALATION RT-QID 11/05/16 05/11/22 History Nebulized] Ipratropium Nebulized [Atrovent 0.5 mg INHALATION RT-QID 11/05/16 05/11/22 History Nebulized 0.2 MG/ML] Vit C/E/Zn/Coppr/Lutein/Zeaxan 1 cap PO BID 04/22/18 05/11/22 History [Preservision Areds 2 Softgel] Albuterol Inhaler [Ventolin Hfa 2 puff INHALATION RT-QID PRN 07/03/20 05/11/22 History Inhaler] Magnesium Oxide [Mag-Ox] 400 mg PO DAILY #30 tablet 07/05/20 05/11/22 Rx Clopidogrel [Plavix] 75 mg PO DAILY 09/19/20 05/11/22 History Famotidine [Pepcid] 20 mg PO DAILY 09/19/20 05/11/22 History Acetaminophen Tab [Tylenol] 650 mg PO Q6HR PRN tab 07/30/21 05/11/22 Rx Furosemide [Lasix] 40 mg PO DIRECTED 05/11/22 05/11/22 History Metoprolol Tartrate [Lopressor] 50 mg PO DAILY 05/11/22 05/11/22 History Potassium Chloride ER [K-Dur 20] 20 meq PO DAILY 05/11/22 05/11/22 History Allergies Allergy/AdvReac Type Severity Reaction Status Date / Time esmolol [From Brevibloc] AdvReac "felt like Verified 05/11/22 12:04 I was going to pass out" Physical Exam Vitals: Vital Signs Temp Pulse Pulse Resp BP Pulse Ox 05/13/22 08:08 64 05/13/22 08:00 96.3 F L 61 22 154/69 97 05/13/22 07:51 60 05/13/22 04:00 97.7 F 62 18 134/63 96 05/13/22 03:45 62 05/13/22 03:29 60 05/13/22 00:00 97.9 F 77 18 127/60 98 05/12/22 23:45 127/60 05/12/22 23:30 134/60 05/12/22 23:15 128/63 05/12/22 23:00 130/68 05/12/22 22:45 112/73 05/12/22 22:30 119/71 05/12/22 22:15 112/71 05/12/22 21:50 108 H 05/12/22 21:40 104 H 05/12/22 20:50 148 H 20 110/69 97 05/12/22 20:33 156 H 124/76 05/12/22 20:09 148 H 20 111/77 97 05/12/22 20:00 97.5 F L 152 H 20 96/68 97 05/12/22 17:01 72 05/12/22 16:48 76 05/12/22 14:00 98.1 F 65 18 146/68 97 05/12/22 13:16 72 05/12/22 13:02 72 Intake and Output 05/12/22 05/13/22 05/13/22 22:59 06:59 14:59 Intake Total 189.97 Output Total 1125 450 Balance -1125 189.97 -450 Intake: Intake, IV Titration 189.97 Amount Amiodarone 360 mg In 99.99 Dextrose 5% in Water 200 ml @ 1 MG/MIN 33.333 mls/ hr IV .Q6H [facility] Rx#: [id number] Amiodarone 450 mg In 49.98 Dextrose 5% in Water 250 ml @ 0.5 MG/MIN 16.667 mls/hr IV .Q15H [facility] Rx#: [id number] Diltiazem 125 mg In 40 Sodium Chloride 0.9% 100 ml @ 5 MG/HR 5 mls/hr IV .Q24H [facility] Rx#:[id number] Output: Urine 1125 450 Other: Voiding Method External Catheter External Catheter Results 05/13/22 04:31 05/13/22 04:31 Cardiac Enzymes 05/12/22 05/12/22 05/13/22 Range/Units 20:45 22:58 04:31 Troponin I 0.657 H* 1.400 H* 22.700 H* (0.000-0.034) ng/mL Coagulation 05/12/22 05/13/22 Range/Units 20:45 04:31 PT 9.9 (9.0-12.0) sec APTT 26.0 51.7 H (22.0-30.0) sec CBC 05/13/22 Range/Units 04:31 WBC 18.60 H (4.50-10.00) X 10*3/uL RBC 3.03 L (4.40-5.60) X 10*6/uL Hgb 9.1 L (13.0-17.0) g/dL Hct 29.7 L (39.6-50.0) % Plt Count 140 (140-440) X 10*3/uL Comprehensive Metabolic Panel 05/13/22 Range/Units 04:31 Sodium 144 (137-145) mmol/L Potassium 4.2 (3.5-5.1) mmol/L Chloride 114 H (98-107) mmol/L Carbon Dioxide 17 L (22-30) mmol/L BUN 68 H (9-20) mg/dL Creatinine 2.72 H (0.66-1.25) mg/dL Glucose 166 H (74-99) mg/dL Calcium 8.7 (8.4-10.2) mg/dL Current Medications Generic Name Dose Route Start Last Admin Trade Name Freq PRN Reason Stop Dose Admin Acetaminophen 650 mg 05/11/22 05:15 Acetaminophen Tab 325 Mg Tab PO Q4HR PRN Mild Pain or Fever > 100.5 Albuterol Sulfate 2.5 mg 05/11/22 14:26 05/13/22 03:26 Albuterol Nebulized 2.5 Mg/3 Ml INHALATION 2.5 mg RT-QID PRN Administration Shortness Of Breath Albuterol/Ipratropium 3 ml 05/11/22 08:00 05/13/22 07:50 Ipratropium-Albuterol 3 Ml Neb INHALATION 3 ml RT-QID MELISA Administration Azithromycin 500 mg 05/12/22 06:00 05/13/22 07:45 Azithromycin 500 Mg Tab PO 05/14/22 09:01 500 mg DAILY MELISA Administration Protocol Budesonide/Formoterol Fumarate 2 puff 05/12/22 09:54 05/13/22 07:51 Symbicort 160-4.5 Mcg Inhaler INHALATION 2 puff RT-BID MELISA Administration Clopidogrel Bisulfate 75 mg 05/12/22 09:00 05/13/22 07:45 Clopidogrel 75 Mg Tab PO 75 mg DAILY MELISA Administration Dextrose/Water 25 ml 05/11/22 08:15 Dextrose 50% Syringe 50 Ml IVP PER PROTOCOL PRN Hypoglycemia Protocol Dextrose/Water 50 ml 05/11/22 08:15 Dextrose 50% Syringe 50 Ml IVP PER PROTOCOL PRN Hypoglycemia Protocol Famotidine 20 mg 05/12/22 09:00 05/13/22 07:45 Famotidine 20 Mg Tab PO 20 mg DAILY MELISA Administration Furosemide 40 mg 05/13/22 21:00 Furosemide 10 Mg/Ml 4 Ml Vial IV BID MELISA Glipizide 2.5 mg 05/12/22 07:30 05/13/22 07:51 Glipizide 2.5 Mg Tab PO Not Given AC-BID MELISA Heparin Sodium (Porcine) 0 unit 05/12/22 20:38 Heparin Sodium 1,000 Un/Ml (10ml Vl) IV PER PROTOCOL PRN Low PTT Protocol Heparin Sodium/Sodium Chloride 250 mls @ 10 mls/hr 05/12/22 20:30 05/12/22 20:40 25,000 unit/ Sodium Chloride IV 11.603 units/kg/hr .Q24H [facility] 10 mls/hr Administration Protocol 11.603 UNITS/KG/HR Amiodarone HCl 450 mg/ 250 mls @ 16.667 mls/hr 05/13/22 04:00 05/13/22 04:07 Dextrose/Water IV 05/13/22 21:59 0.5 mg/min .Q15H [facility] 16.667 mls/hr Administration Protocol 0.5 MG/MIN Diltiazem HCl 125 mg/ Sodium 125 mls @ 5 mls/hr 05/12/22 22:00 05/12/22 22:08 Chloride IV 5 mg/hr .Q24H [facility] 5 mls/hr Administration 5 MG/HR Insulin Aspart 0 unit 05/11/22 12:30 05/13/22 06:05 Insulin Aspart (Novolog) 100 Unit/Ml Vial SQ Not Given ACHS [facility] Protocol Insulin Detemir 20 unit 05/12/22 14:00 05/13/22 07:50 Insulin Detemir (Levemir) 100 Unit/Ml Syr SQ Not Given BID [facility] Levothyroxine Sodium 100 mcg 05/11/22 15:00 05/13/22 05:51 Levothyroxine 100 Mcg Tab PO 100 mcg DAILY@0630 [facility] Administration Methylprednisolone Sodium Succinate 60 mg 05/12/22 12:00 05/13/22 05:51 Methylprednisolone Sod Succi 125 Mg/2 Ml Vial IV 60 mg Q6HR MELISA Administration Metoprolol Succinate 50 mg 05/11/22 09:45 05/13/22 07:45 Metoprolol Succinate (Er) 50 Mg Tab.Er.24h PO 50 mg DAILY MELISA Administration Naloxone HCl 0.2 mg 05/11/22 05:15 Naloxone 0.4 Mg/Ml 1 Ml Vial IVP Q2M PRN Opioid Reversal Intake and Output 05/12/22 05/13/22 05/13/22 22:59 06:59 14:59 Intake Total 189.97 Output Total 1125 450 Balance -1125 189.97 -450 Intake: Intake, IV Titration 189.97 Amount Amiodarone 360 mg In 99.99 Dextrose 5% in Water 200 ml @ 1 MG/MIN 33.333 mls/ hr IV .Q6H [facility] Rx#: [id number] Amiodarone 450 mg In 49.98 Dextrose 5% in Water 250 ml @ 0.5 MG/MIN 16.667 mls/hr IV .Q15H [facility] Rx#: [id number] Diltiazem 125 mg In 40 Sodium Chloride 0.9% 100 ml @ 5 MG/HR 5 mls/hr IV .Q24H [facility] Rx#:[id number] Output: Urine 1125 450 Other: Voiding Method External Catheter External Catheter 05/13/22 04:31 05/13/22 04:31
[2022-05-13 16:44] LABS: Glucose,Whole Blood 304 mg/dL (70-110)
[2022-05-13 17:23] LABS: ABG Base Excess -8.3 mmol/L; ABG HCO3 19 mmol/L (21-25); ABG Oxygen Saturation 94.5 % (94-97); ABG PCO2 44 mmHg (35-45); ABG PH 7.25 (7.35-7.45); ABG PO2 72 mmHg (83-108); ABG TCO2 20 mmol/L (19-24); Allen Test Performed? Yes
[2022-05-13] MEDS ORDERED: SODIUM BICARB 8.4% 50 ML SYR (1 MEQ/ML) IV STA ×2 (17:54→17:57)
[2022-05-13 18:09] LABS: Appearance,Urine Clear (Clear); Bacteria,Urine Few /hpf; Bilirubin,Urine Negative (Negative); Blood,Urine Large (Negative); Color,Urine Colorless; Glucose,Urine (UA) Negative (Negative); Ketones,Urine Negative (Negative); Leukocyte Esterase,Urine Negative (Negative); Mucus,Urine Rare /hpf; Nitrite,Urine Negative (Negative); Protein,Urine Trace (Negative); RBC,Urine 121 /hpf (0-5); Specific Gravity,Urine 1.009 (1.001-1.035); Squamous Epithelial Cell,Urine <1 /hpf (0-4); Urobilinogen,Urine <2.0 mg/dL (<2.0); WBC,Urine 1 /hpf (0-5)
[2022-05-13] MEDS: HEPARIN SOD,PORK IN 0.45% NACL 25,000 UNIT in 0.45% NACL 1 250ML.BAG IV SCH (18:19)
--- NOTE | 2022-05-13 19:36 | P.PN ---
Subjective Progress Note Date: 05/13/22 81-year-old male came in with complaints of shortness of breath patient does have extensive history does have history of sick sinus syndrome history of coronary artery disease CABG patient has a wheezing on exam. Patient is requiring oxygen usually doesn't use oxygen at home patient has some wheezing on exam patient is found to have C. Sepsis from RSV. Patient is also on heart failure exacerbation with elevated BNP elevated JVD. Patient has chronic diastolic dysfunction. 05/12/2022 Patient is seen and evaluated in follow-up with pulmonary following a currently maintained on 2 L via nasal cannula and continues with significant wheezing. Patient was maintained on IV steroids and increased per pulmonary's patient continues to have significant wheezing on exam. Patient does not normally wear oxygen the outpatient setting and recommended to wean FiO2 as tolerated. Patient also being treated with IV Lasix for CHF with diastolic dysfunction acute exacerbation. Denies chest pain or palpitations and reports no significant improvement in shortness of breath as of yet. Patient encouraged increased activity as tolerated. Patient also having extremely elevated blood sugars most likely steroid effect and will continue sliding scale and will also start long-acting. Will change diet to consistent carb. Recommend continued monitoring of Accu-Cheks before meals and at bedtime. Will follow-up with repeat labs in the a.m. 05/13/2022 Patient is seen in follow-up today much more lethargic although arousable. Patient had an episode of atrial flutter with RVR and transferred to stepdown unit placed on IV heparin along with Cardizem. Troponin drawn up to 22 with associated chest pain and cardiology considering most likely type II myocardial infarction secondary to atrial flutter. Repeat 2-D echo is ordered and pending. Patient also continues with RSV currently on 2-3 L via nasal cannula. Patient appears dyspneic and working to breathe during exam. Patient also continuing wi th some increased confusion likely metabolic encephalopathy his kidney functions are worsening and nephrology on consult now. Patient being started on IV Lasix twice daily. Chest x-ray shows no overt failure. Concern of jump in white count appears most likely reactive secondary to IV steroids. Patient is on high-dose IV steroids with pulmonary and also cardiology following. Patient continues on oral Zithromax. Patient is also extremely high risk for aspiration recommend head of the bed elevated 45 at all times and strict aspiration precautions. REVIEW OF SYSTEMS: Poor historian PHYSICAL EXAMINATION: GENERAL: The patient is alert and oriented x1-2, appears to be in mild respiratory distress. Thin built, ill-appearing, cachectic, extremely elderly- appearing HEENT: Pupils are round and equally reacting to light. EOMI. No scleral icterus. No conjunctival pallor. Normocephalic, atraumatic. No pharyngeal erythema. No thyromegaly. CARDIOVASCULAR: S1 and S2 present. No murmurs, rubs, or gallops. PULMONARY: Diminished breath sounds bilaterally with some expiratory wheezing and crackles at the bases noted on exam ABDOMEN: Soft, nontender, nondistended, normoactive bowel sounds. No palpable organomegaly. MUSCULOSKELETAL: No joint swelling or deformity. EXTREMITIES: No cyanosis, clubbing, or pedal edema. NEUROLOGICAL: Gross neurological examination did not reveal any focal deficits. Diffusely weak SKIN: No rashes. Assessment: -Acute hypoxic respiratory failure secondary to COPD exacerbation and RSV infection patient is on empiric antibiotic in the form of azithromycin for bronchitis which will be continued and patient will continue with systemic steroids and dose was increased again per pulmonary with significant continued wheezing -Acute renal failure on chronic kidney disease stage V acute renal failure secondary to hypovolemia, worsening -Acute atrial flutter with RVR -Elevated troponin, possibly type II myocardial infarction secondary to atrial flutter -Hyperchloremic metabolic acidosis secondary to IV fluids -Hyperkalemia secondary to IV fluids -Congestive heart failure acute on chronic chronic systolic dysfunction with acute exacerbation -History of Coronary artery disease status post CABG -benign prostatic hypertrophy -hypertension -Diabetes mellitus , type II uncontrolled with elevated blood sugars secondary to systemic steroids patient is on glipizide which will be continued along with sliding scale -Hypertension -History of ulcerative colitis presently not on any medications -Anemia of chronic disease -DVT prophylaxis: Subcutaneous heparin Plan: Recommend to continue current medications and management with pulmonary following. Patient continues on high-dose IV steroids and having elevated blood sugars and have added long-acting and will continue sliding scale. Patient with significant wheezing continue IV steroids Patient went into heart rates of 130s with atrial flutter with RVR and cardiology was consulted and placed on heparin drip along with IV Cardizem with elevated troponins and repeat 2-D echo was ordered and pending, likely type II myocardial infarction Blood sugars elevated and will continue sliding scale and also add long-acting and recommended continue Accu-Cheks before meals and at bedtime Recommend repeat labs in the a.m. Leukocytosis, likely reactive secondary to high-dose steroids and patient is on Zithromax Patient is maintained on 2 L via nasal cannula and recommended wean FiO2 as tolerated, extremely dyspneic with minimal exertion today and placed on IV Lasix twice daily continues on 2-3 L Encouraged to increase activity as tolerated and will have PT evaluate the patient Due to multiple complex medical issues, Prognosis is guarded Need to discuss further with family about CODE STATUS The impression and plan of care has been dictated by Yaquelin Frances, Nurse Practitioner as directed. Dr. Chucho MD I have performed a history and examination and MDM of this patient, discussed the same with the dictator, and agree with the dictator's assessment and plan as written ,documented as a scribe. Based on total visit time, I have performed more than 50% of the visit. Objective - Vital Signs Vital signs: Vital Signs Temp 96.3 F L 05/13/22 08:00 Pulse 64 05/13/22 08:08 Resp 22 05/13/22 08:00 BP 154/69 05/13/22 08:00 Pulse Ox 97 05/13/22 08:00 FiO2 Intake & Output 05/12/22 05/13/22 05/13/22 18:59 06:59 18:59 Intake Total 189.97 Output Total 1125 450 Balance -1125 189.97 -450 Weight 86.183 kg Intake: Intake, IV Titration 189.97 Amount Amiodarone 360 mg In 99.99 Dextrose 5% in Water 200 ml @ 1 MG/MIN 33.333 mls/ hr IV .Q6H [facility] Rx#: [id number] Amiodarone 450 mg In 49.98 Dextrose 5% in Water 250 ml @ 0.5 MG/MIN 16.667 mls/hr IV .Q15H [facility] Rx#: [id number] Diltiazem 125 mg In 40 Sodium Chloride 0.9% 100 ml @ 5 MG/HR 5 mls/hr IV .Q24H [facility] Rx#:[id number] Output: Urine 1125 450 Other: Voiding Method External Catheter - Labs CBC & Chem 7: 05/13/22 04:31 05/13/22 04:31 Labs: Abnormal Lab Results - Last 24 Hours (Table) 05/12/22 05/12/22 05/12/22 Range/Units 03:31 09:47 11:38 WBC (4.50-10.00) X 10*3/uL RBC (4.40-5.60) X 10*6/uL Hgb (13.0-17.0) g/dL Hct (39.6-50.0) % MCV (80.0-97.0) fL MCHC (32.0-37.0) g/dL Immature Gran # (0.00-0.04) X 10*3/uL Neutrophils # (1.80-7.70) X 10*3/uL Eosinophils # (0.04-0.35) X 10*3/uL APTT (22.0-30.0) sec Chloride 111 H (96-109) mmol/L Carbon Dioxide 16.9 L (20.0-27.5) mmol/L BUN 52.9 H (9.0-27.0) mg/dL Creatinine 2.3 H (0.6-1.5) mg/dL Est GFR (CKD-EPI)AfAm 30.0 L (60.0-200.0) Est GFR (CKD-EPI)NonAf 25.9 L (60.0-200.0) BUN/Creatinine Ratio 23.00 H (12.00-20.00) Ratio Glucose 214 H (70-110) mg/dL POC Glucose (mg/dL) 291 H (70-110) mg/dL Hemoglobin A1c 9.9 H (0.0-6.0) % Troponin I (0.000-0.034) ng/mL 05/12/22 05/12/22 05/12/22 Range/Units 16:47 20:14 20:45 WBC (4.50-10.00) X 10*3/uL RBC (4.40-5.60) X 10*6/uL Hgb (13.0-17.0) g/dL Hct (39.6-50.0) % MCV (80.0-97.0) fL MCHC (32.0-37.0) g/dL Immature Gran # (0.00-0.04) X 10*3/uL Neutrophils # (1.80-7.70) X 10*3/uL Eosinophils # (0.04-0.35) X 10*3/uL APTT (22.0-30.0) sec Chloride (96-109) mmol/L Carbon Dioxide (20.0-27.5) mmol/L BUN (9.0-27.0) mg/dL Creatinine (0.6-1.5) mg/dL Est GFR (CKD-EPI)AfAm (60.0-200.0) Est GFR (CKD-EPI)NonAf (60.0-200.0) BUN/Creatinine Ratio (12.00-20.00) Ratio Glucose (70-110) mg/dL POC Glucose (mg/dL) 307 H 338 H (70-110) mg/dL Hemoglobin A1c (0.0-6.0) % Troponin I 0.657 H* (0.000-0.034) ng/mL 05/12/22 05/12/22 05/13/22 Range/Units 21:40 22:58 04:31 WBC (4.50-10.00) X 10*3/uL RBC (4.40-5.60) X 10*6/uL Hgb (13.0-17.0) g/dL Hct (39.6-50.0) % MCV (80.0-97.0) fL MCHC (32.0-37.0) g/dL Immature Gran # (0.00-0.04) X 10*3/uL Neutrophils # (1.80-7.70) X 10*3/uL Eosinophils # (0.04-0.35) X 10*3/uL APTT (22.0-30.0) sec Chloride (96-109) mmol/L Carbon Dioxide (20.0-27.5) mmol/L BUN (9.0-27.0) mg/dL Creatinine (0.6-1.5) mg/dL Est GFR (CKD-EPI)AfAm (60.0-200.0) Est GFR (CKD-EPI)NonAf (60.0-200.0) BUN/Creatinine Ratio (12.00-20.00) Ratio Glucose (70-110) mg/dL POC Glucose (mg/dL) 309 H (70-110) mg/dL Hemoglobin A1c (0.0-6.0) % Troponin I 1.400 H* 22.700 H* (0.000-0.034) ng/mL 05/13/22 05/13/22 05/13/22 Range/Units 04:31 04:31 04:31 WBC 18.60 H (4.50-10.00) X 10*3/uL RBC 3.03 L (4.40-5.60) X 10*6/uL Hgb 9.1 L (13.0-17.0) g/dL Hct 29.7 L (39.6-50.0) % MCV 98.0 H (80.0-97.0) fL MCHC 30.6 L (32.0-37.0) g/dL Immature Gran # 0.13 H (0.00-0.04) X 10*3/uL Neutrophils # 16.72 H (1.80-7.70) X 10*3/uL Eosinophils # 0 L (0.04-0.35) X 10*3/uL APTT 51.7 H (22.0-30.0) sec Chloride 114 H (96-109) mmol/L Carbon Dioxide 17 L (20.0-27.5) mmol/L BUN 68 H (9.0-27.0) mg/dL Creatinine 2.72 H (0.6-1.5) mg/dL Est GFR (CKD-EPI)AfAm (60.0-200.0) Est GFR (CKD-EPI)NonAf (60.0-200.0) BUN/Creatinine Ratio (12.00-20.00) Ratio Glucose 166 H (70-110) mg/dL POC Glucose (mg/dL) (70-110) mg/dL Hemoglobin A1c (0.0-6.0) % Troponin I (0.000-0.034) ng/mL
[2022-05-13 20:05] LABS: Glucose,Whole Blood 129 mg/dL (70-110)
[2022-05-13] MEDS: DILTIAZEM 125 MG in SODIUM CHLORIDE 0.9% 100 ML IV SCH (20:38)
[2022-05-13] MEDS: SODIUM BICARBONATE TAB 650 MG TAB PO SCH (20:38)
[2022-05-13] MEDS: AMIODARONE 200 MG TAB PO SCH (20:38)
[2022-05-14 04:07] LABS: Glucose,Whole Blood 59 mg/dL (70-110)
[2022-05-14 04:29] LABS: Glucose,Whole Blood 88 mg/dL (70-110)
[2022-05-14] MEDS: ALBUTEROL NEBULIZED 2.5 MG/3 ML INHALATION PRN (05:25)
[2022-05-14 06:01] LABS: Glucose,Whole Blood 150 mg/dL (70-110)
[2022-05-14] MEDS: INSULIN ASPART (NovoLOG) 100 UNIT/ML VIAL SQ SCH ×4 (06:14→20:42)
[2022-05-14] MEDS: methylPREDNISolone SOD SUCCI 125 MG/2 ML VIAL IV SCH ×3 (06:24→17:21)
[2022-05-14] MEDS: LEVOTHYROXINE 100 MCG TAB PO SCH (06:24)
[2022-05-14] MEDS: FUROSEMIDE 10 MG/ML 4 ML VIAL IV SCH ×2 (08:06→20:41)
[2022-05-14] MEDS: AMIODARONE 200 MG TAB PO SCH ×2 (08:06→20:40)
[2022-05-14] MEDS: SODIUM BICARBONATE TAB 650 MG TAB PO SCH ×2 (08:06→20:42)
[2022-05-14] MEDS: CLOPIDOGREL 75 MG TAB PO SCH (08:07)
[2022-05-14] MEDS: FAMOTIDINE 20 MG TAB PO SCH (08:07)
[2022-05-14] MEDS: AZITHROMYCIN 500 MG TAB PO SCH (08:07)
--- NOTE | 2022-05-14 08:17 | CA ---
Transthoracic Echo Report Name: Vinnie Orozco Age: 81 Gender: M : 1940 Exam Date: 05/13/2022 13:02 Exam Location: [facility] Ht (in): 72 Wt (lb): 190 Ordering Physician: Lyndon Alcazar DO ([email or web address]) Attending/Referring Phys: [place] Firer Parul Mullen RDCS Procedure CPT: Indications: re: LV function, NSTEMI Cardiac Hx: Technical Quality: Fair Contrast 1: Total Dose (mL): Contrast 2: Total Dose (mL): MEASUREMENTS (Male / Female) Normal Values 2D ECHO LV Diastolic Diameter PLAX 4.7 cm 4.2 - 5.9 / 3.9 - 5.3 cm LV Systolic Diameter PLAX 2.9 cm IVS Diastolic Thickness 1.4 cm 0.6 - 1.0 / 0.6 - 0.9 cm LVPW Diastolic Thickness 1.3 cm 0.6 - 1.0 / 0.6 - 0.9 cm LV Relative Wall Thickness 0.6 RV Internal Dim ED PLAX 3.9 cm LA Volume 91.4 cm??? 18 - 58 / 22 - 52 cm??? M-MODE Aortic Root Diameter MM 2.8 cm LA Systolic Diameter MM 4.9 cm LA Ao Ratio MM 1.7 AV Cusp Separation MM 1.8 cm DOPPLER AV Peak Velocity 111.9 cm/s AV Peak Gradient 5.0 mmHg LVOT Peak Velocity 76.6 cm/s LVOT Peak Gradient 2.3 mmHg MV Area PHT 3.1 cm??? Mitral E Point Velocity 101.6 cm/s Mitral A Point Velocity 21.8 cm/s Mitral E to A Ratio 4.7 MV Deceleration Time 248.4 ms TR Peak Velocity 309.4 cm/s TR Peak Gradient 38.3 mmHg Right Ventricular Systolic Press 43.0 mmHg FINDINGS Left Ventricle Moderately increased septal wall thickness. Abnormal (paradoxical) septal motion consistent with postoperative state. Decreased LV systolic function.left ventricular ejection fraction is estimated at 40-45 %. Right Ventricle Mild right ventricular dilatation. Mild pulmonary hypertension. Right Atrium Mild right atrial dilatation. Catheter/pacemaker wire in the right atrial cavity. Left Atrium Severely increased left atrial volume. Mildly increased left atrial area. Mitral Valve Mitral valve thickened. Mild mitral annular calcification. [id number] mitral regurgitation. Aortic Valve No aortic valve stenosis or regurgitation. Aortic valve sclerosis. Tricuspid Valve Tricuspid valve not well visualized. Moderate tricuspid regurgitation. Pulmonic Valve Trace pulmonic regurgitation. Pericardium No pericardial effusion. Aorta Normal size aortic root and proximal ascending aorta. CONCLUSIONS Impaired all the function was EF between 40-45% [id number] mitral regurgitation Previewed by: Dr. Corby Bautista MD (Electronically Signed) Final Date: 14 May 2022 08:16
[2022-05-14] MEDS: SYMBICORT 160-4.5 MCG INHALER INHALATION SCH ×2 (08:49→19:18)
[2022-05-14] MEDS: IPRATROPIUM-ALBUTEROL 3 ML NEB INHALATION SCH ×4 (08:49→19:18)
[2022-05-14] MEDS ORDERED: METOPROLOL SUCCINATE (ER) 100 MG TAB.ER.24H PO SCH (09:00)
[2022-05-14 09:55] LABS: Calcium 7.6 mg/dL (8.4-10.2); Potassium 3.3 mmol/L (3.5-5.1)
[2022-05-14 10:03] LABS: Basophils % (A) 0 %; Eosinophils % (A) 0 %; HCT 31.1 % (39.0-53.0); HGB 9.8 gm/dL (13.0-17.5); Hypochromasia Moderate; Lymphocytes # (A) 0.9 k/uL (1.0-4.8); Lymphocytes % (A) 7 %; MCH 30.6 pg (25.0-35.0); MCHC 31.5 g/dL (31.0-37.0); Mean Platelet Volume 8.8; Monocytes # (A) 0.3 k/uL (0-1.0); Monocytes % (A) 2 %; Neutrophils # (A) 11.4 k/uL (1.3-7.7); Neutrophils % (A) 90 %; Platelet Count 122 k/uL (150-450); RDW 13.7 % (11.5-15.5); WBC 12.7 k/uL (3.8-10.6)
--- NOTE | 2022-05-14 10:16 | P.PN ---
Subjective HISTORY OF PRESENTING ILLNESS Patient is a pleasant 81-year-old male with history of CAD status post CABG 2001 ischemic cardiomyopathy status post AICD, [facility], hypertension, diabetes mellitus type 2, paroxysmal atrial fibrillation not on anticoagulation previously secondary to GI bleeding and hyperlipidemia. He had previously followed with Dr. 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 Previous echo June 2020 showed EF 40-45% however reported decreased EF by more recent echo. Patient presented with shortness of breath and was found to have influenza. Initial EKG had shown sinus rhythm. Patient went into atrial flutter with RVR with heart rate 150 and patient developed chest pain with this. He was attempted with nitro however he did have decrease in blood pressure and additionally was given amiodarone and Cardizem. After approximately 45 minutes he did have return of heart rates into the 60s with what appears to be paced rhythm. White blood cell count did increase from 8.0 up to 18.6. Troponins have been chronically elevated in the past however went from 0.6 up to 1.4 up to 22. ProBNP increased at 26,000. His creatinine has increased from baseline 1.7-2 a nd 2.2 on presentation up to 2.7. He currently remains on a heparin drip with Plavix and has been on amiodarone drip as well as the metoprolol 50 mg daily. Concern of worsening pulmonary edema and therefore was placed on 40 mg IV twice a day. 05/14 Patient seen and examined. Patient stating he had some increased shortness breath this morning however better than yesterday. Creatinine increased to 3.0. No significant hypotension noted. His metoprolol was increased at 100 mg daily and remains on amiodarone oral. Brief run of nonsustained VT. Patient remains in atrial paced rhythm in the 60s. PHYSICAL EXAMINATION Vital signs reviewed. CONSTITUTIONAL: No apparent distress, ill appearing, frail HEENT: Head is normocephalic. Pupils are equal, round. Sclerae anicteric. Mucous membranes of the mouth are moist. No JVD. No carotid bruit. CHEST EXAMINATION: Bilateral crackles and rhonchi HEART EXAMINATION: Regular rate and rhythm. S1, S2 heard. No murmurs, gallops or rub. ABDOMEN: Soft, nontender. Positive bowel sounds. EXTREMITIES: 2+ peripheral pulses, no lower extremity edema and no calf tenderness. NEUROLOGIC EXAMINATION: Patient is awake, alert and oriented x3. ASSESSMENT 1. Non-STEMI likely type II mechanism related to atrial flutter with RVR 2. Typical atrial flutter with RVR heart rates 150s highly symptomatic 3. Acute on chronic respiratory failure related to RSV as well as heart failure 4. Acute on chronic systolic heart failure 5. History of ischemic cardiomyopathy EF ranging from reportedly 25% up to 40- 45% 6. Hypertension 7. CAD status post CABG 8. Chronic kidney disease, mild increase in creatinine PLAN Non-STEMI related to atrial flutter with RVR. Given his defibrillator and atrial paced attempt to rate control and increase metoprolol and continue with amiodarone. He does have increased Cr however continue diuretics for 1 more day and monitor response. Increased creatinine may be related to ATN from atrial flutter with RVR 2 days ago. Echo shows EF 40-45%. In Senior medical therapy. Prognosis guarded. Objective - Vital Signs Vital signs: Vital Signs Temp 97.5 F L 05/14/22 08:00 Pulse 65 05/14/22 09:00 Resp 18 05/14/22 08:00 BP 144/64 05/14/22 08:00 Pulse Ox 95 05/14/22 08:00 FiO2 Intake & Output 05/13/22 05/14/22 05/14/22 18:59 06:59 18:59 Intake Total 803.949 112.5 Output Total 1400 500 Balance -596.051 -387.5 Weight 86.183 kg Intake: Intake, IV Titration 445.949 112.5 Amount Amiodarone 450 mg In 229.449 Dextrose 5% in Water 250 ml @ 0.5 MG/MIN 16.667 mls/hr IV .Q15H MELISA Rx#: [id number] Diltiazem 125 mg In 112.5 Sodium Chloride 0.9% 100 ml @ 5 MG/HR 5 mls/hr IV .Q24H MELISA Rx#:[id number] Heparin Sod,Pork in 0.45% 216.5 NaCl 25,000 unit In 0.45 % NaCl 1 250ml.bag @ 11. 603 UNITS/KG/HR 10 mls/hr IV .Q24H MELISA Rx#: [id number] Oral 358 Output: Urine 1400 500 Other: Voiding Method External Catheter - Labs CBC & Chem 7: 05/14/22 06:24 05/14/22 06:24 Labs: Abnormal Lab Results - Last 24 Hours (Table) 05/13/22 05/13/22 05/13/22 Range/Units 16:41 17:18 17:37 WBC (3.8-10.6) k/uL RBC (4.30-5.90) m/uL Hgb (13.0-17.5) gm/dL Hct (39.0-53.0) % Plt Count (150-450) k/uL Neutrophils # (1.3-7.7) k/uL Lymphocytes # (1.0-4.8) k/uL APTT (22.0-30.0) sec ABG pH 7.25 L (7.35-7.45) ABG pO2 72 L (83-108) mmHg ABG HCO3 19 L (21-25) mmol/L Potassium (3.5-5.1) mmol/L Chloride (98-107) mmol/L Carbon Dioxide (22-30) mmol/L BUN (9-20) mg/dL Creatinine (0.66-1.25) mg/dL Glucose (74-99) mg/dL POC Glucose (mg/dL) 304 H (70-110) mg/dL Calcium (8.4-10.2) mg/dL Urine Protein Trace H (Negative) Urine Blood Large H (Negative) Urine RBC 121 H (0-5) /hpf Urine Bacteria Few H (None) /hpf Urine Mucus Rare H (None) /hpf 05/13/22 05/14/22 05/14/22 Range/Units 20:02 04:05 05:57 WBC (3.8-10.6) k/uL RBC (4.30-5.90) m/uL Hgb (13.0-17.5) gm/dL Hct (39.0-53.0) % Plt Count (150-450) k/uL Neutrophils # (1.3-7.7) k/uL Lymphocytes # (1.0-4.8) k/uL APTT (22.0-30.0) sec ABG pH (7.35-7.45) ABG pO2 (83-108) mmHg ABG HCO3 (21-25) mmol/L Potassium (3.5-5.1) mmol/L Chloride (98-107) mmol/L Carbon Dioxide (22-30) mmol/L BUN (9-20) mg/dL Creatinine (0.66-1.25) mg/dL Glucose (74-99) mg/dL POC Glucose (mg/dL) 129 H 59 L 150 H (70-110) mg/dL Calcium (8.4-10.2) mg/dL Urine Protein (Negative) Urine Blood (Negative) Urine RBC (0-5) /hpf Urine Bacteria (None) /hpf Urine Mucus (None) /hpf 05/14/22 05/14/22 05/14/22 Range/Units 06:24 06:24 06:24 WBC 12.7 H (3.8-10.6) k/uL RBC 3.20 L (4.30-5.90) m/uL Hgb 9.8 L (13.0-17.5) gm/dL Hct 31.1 L (39.0-53.0) % Plt Count 122 L (150-450) k/uL Neutrophils # 11.4 H (1.3-7.7) k/uL Lymphocytes # 0.9 L (1.0-4.8) k/uL APTT 59.7 H (22.0-30.0) sec ABG pH (7.35-7.45) ABG pO2 (83-108) mmHg ABG HCO3 (21-25) mmol/L Potassium 3.3 L (3.5-5.1) mmol/L Chloride 112 H (98-107) mmol/L Carbon Dioxide 19 L (22-30) mmol/L BUN 84 H (9-20) mg/dL Creatinine 3.05 H (0.66-1.25) mg/dL Glucose 142 H (74-99) mg/dL POC Glucose (mg/dL) (70-110) mg/dL Calcium 7.6 L (8.4-10.2) mg/dL Urine Protein (Negative) Urine Blood (Negative) Urine RBC (0-5) /hpf Urine Bacteria (None) /hpf Urine Mucus (None) /hpf
--- NOTE | 2022-05-14 11:33 | P.PN ---
Subjective Patient is seen for follow-up for acute kidney injury associated with hypotension, hemodynamic instability and cardiorenal. Currently being diuresed. Patient states he is feeling better with improvement in shortness of breath. Heart rate is better controlled. Patient has external catheter with urine output of 1.9 L. Ultrasound shows moderate hydronephrosis bilaterally. Serum creatinine is up to 3.0 mg/dL today Objective - Vital Signs Vital signs: Vital Signs Temp 97.5 F L 05/14/22 08:00 Pulse 65 05/14/22 09:00 Resp 18 05/14/22 08:00 BP 144/64 05/14/22 08:00 Pulse Ox 95 05/14/22 08:00 FiO2 Intake & Output 05/13/22 05/14/22 05/14/22 18:59 06:59 18:59 Intake Total 803.949 112.5 Output Total 1400 500 Balance -596.051 -387.5 Weight 86.183 kg Intake: Intake, IV Titration 445.949 112.5 Amount Amiodarone 450 mg In 229.449 Dextrose 5% in Water 250 ml @ 0.5 MG/MIN 16.667 mls/hr IV .Q15H MELISA Rx#: [id number] Diltiazem 125 mg In 112.5 Sodium Chloride 0.9% 100 ml @ 5 MG/HR 5 mls/hr IV .Q24H MELISA Rx#:[id number] Heparin Sod,Pork in 0.45% 216.5 NaCl 25,000 unit In 0.45 % NaCl 1 250ml.bag @ 11. 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 - Labs CBC & Chem 7: 05/14/22 06:24 05/14/22 06:24 Labs: Abnormal Lab Results - Last 24 Hours (Table) 05/13/22 05/13/22 05/13/22 Range/Units 16:41 17:18 17:37 WBC (3.8-10.6) k/uL RBC (4.30-5.90) m/uL Hgb (13.0-17.5) gm/dL Hct (39.0-53.0) % Plt Count (150-450) k/uL Neutrophils # (1.3-7.7) k/uL Lymphocytes # (1.0-4.8) k/uL APTT (22.0-30.0) sec ABG pH 7.25 L (7.35-7.45) ABG pO2 72 L (83-108) mmHg ABG HCO3 19 L (21-25) mmol/L Potassium (3.5-5.1) mmol/L Chloride (98-107) mmol/L Carbon Dioxide (22-30) mmol/L BUN (9-20) mg/dL Creatinine (0.66-1.25) mg/dL Glucose (74-99) mg/dL POC Glucose (mg/dL) 304 H (70-110) mg/dL Calcium (8.4-10.2) mg/dL Urine Protein Trace H (Negative) Urine Blood Large H (Negative) Urine RBC 121 H (0-5) /hpf Urine Bacteria Few H (None) /hpf Urine Mucus Rare H (None) /hpf 05/13/22 05/14/22 05/14/22 Range/Units 20:02 04:05 05:57 WBC (3.8-10.6) k/uL RBC (4.30-5.90) m/uL Hgb (13.0-17.5) gm/dL Hct (39.0-53.0) % Plt Count (150-450) k/uL Neutrophils # (1.3-7.7) k/uL Lymphocytes # (1.0-4.8) k/uL APTT (22.0-30.0) sec ABG pH (7.35-7.45) ABG pO2 (83-108) mmHg ABG HCO3 (21-25) mmol/L Potassium (3.5-5.1) mmol/L Chloride (98-107) mmol/L Carbon Dioxide (22-30) mmol/L BUN (9-20) mg/dL Creatinine (0.66-1.25) mg/dL Glucose (74-99) mg/dL POC Glucose (mg/dL) 129 H 59 L 150 H (70-110) mg/dL Calcium (8.4-10.2) mg/dL Urine Protein (Negative) Urine Blood (Negative) Urine RBC (0-5) /hpf Urine Bacteria (None) /hpf Urine Mucus (None) /hpf 05/14/22 05/14/22 05/14/22 Range/Units 06:24 06:24 06:24 WBC 12.7 H (3.8-10.6) k/uL RBC 3.20 L (4.30-5.90) m/uL Hgb 9.8 L (13.0-17.5) gm/dL Hct 31.1 L (39.0-53.0) % Plt Count 122 L (150-450) k/uL Neutrophils # 11.4 H (1.3-7.7) k/uL Lymphocytes # 0.9 L (1.0-4.8) k/uL APTT 59.7 H (22.0-30.0) sec ABG pH (7.35-7.45) ABG pO2 (83-108) mmHg ABG HCO3 (21-25) mmol/L Potassium 3.3 L (3.5-5.1) mmol/L Chloride 112 H (98-107) mmol/L Carbon Dioxide 19 L (22-30) mmol/L BUN 84 H (9-20) mg/dL Creatinine 3.05 H (0.66-1.25) mg/dL Glucose 142 H (74-99) mg/dL POC Glucose (mg/dL) (70-110) mg/dL Calcium 7.6 L (8.4-10.2) mg/dL Urine Protein (Negative) Urine Blood (Negative) Urine RBC (0-5) /hpf Urine Bacteria (None) /hpf Urine Mucus (None) /hpf Assessment and Plan Assessment: 1. Acute kidney injury, cardiorenal and obstructive uropathy with ultrasound showing bilateral moderate hydronephrosis. Blood pressure had been on the lower side as well which contribute to the acute kidney injury. UA shows trace protein and large blood WBCs 1. 2. CK D stage III B with baseline creatinine about 1.5 mg/dL in September 2020 with episode of acute kidney injury in July 2021 with peak creatinine at about 4 mg/dL and lowest at 1.9 on 07/30/2021. 3. Non-gap metabolic acidosis secondary to acute kidney injury 4. Acute on top of chronic systolic CHF. Ejection fraction 40-45% in June 2020 5. Acute hypoxic respiratory failure secondary to RSV and component of CHF 6. History of COPD 7. Acute OK maintained on IV heparin 8. Moderate bilateral hydronephrosis, will insert Mcgovern catheter Plan: Insert Mcgovern catheter Continue to diurese patient Repeat labs in a.m.
[2022-05-14 11:49] LABS: Glucose,Whole Blood 432 mg/dL (70-110)
[2022-05-14] MEDS: ACETAMINOPHEN TAB 325 MG TAB PO PRN (12:25)
--- NOTE | 2022-05-14 12:54 | P.PN ---
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 Is coming in with increasing dyspnea, chest tightness and wheezing and the patient in emergency department was diagnosed having a positive RSV infection by PCR. Influenza was negative. Covid 19 testing was negative. Chest x-ray was consistent with some mild subsegmental atelectatic changes in the right midlung, no other acute abnormalities noted. Sternal wires were present. He was started on bronchodilators and steroids. He was started also on oxygen therapy and the patient is currently on 2 L O2 nasal cannula. He is still struggling with his breathing is short of breath. His comorbid conditions include coronary artery disease with previous bypass surgery, hypertension, ulcerative colitis currently inactive and stable, chronic diastolic heart failure and COPD. The patient also has history of lymphoma treated with systemic chemotherapy seems to be in remission since 2011. I am evaluating this patient today on 05/12/2022. The patient appears fairly comfortable on 2 L nasal cannula in bed. The patient has an audible expiratory wheeze on auscultation. His IV Solu-Medrol was weaned down, to obtain better glucose control by primary. His most recent CBC count on 05/11/2022 revealed a WBC of 8, hemoglobin 9.6, hematocrit 29.9, platelets 110. Today's BMP from 05/12/2022 shows a sodium 141, potassium of 4.7, chloride of 111, serum CO2 of 16.9, V1 53, creatinine of 2.3, glucose of 214.most recent chest x-ray on 05/11/2022 revealed mild subsegmental atelectasis in the right, mid lung which was new compared to old exam. He is managed on DuoNeb inhalation and IV Solu- Medrol. He is on empiric antibiotic coverage with Zithromax. The patient is seen today 05/13/2022 in follow-up on the selective care unit. He is currently maintaining O2 saturations in the 90s on 2 L/m per nasal cannula. Follow-up chest x-ray reveals mild pulmonary venous congestion without overt failure. White count 18.6. Hemoglobin 9.1. Platelets 140. Sodium 144. Potassium 4.2. Bicarb 17. BUN 68. Creatinine 2.72. Troponins 22.7. ProBNP 26,800. Glucose 166. Ultrasound of the kidneys/bladder revealed moderate hydronephrosis bilaterally. Last evening he developed atrial flutter with a rapid ventricular response and significant chest discomfort with noted ST depression. Rapid response team was called and he was transferred to the [facility]. He's been initiated on amiodarone drip. He is on Lasix 40 mg IV every 12 hours. Remains on a heparin drip per weight base protocol. He is continued on DuoNeb inhalations, Symbicort, IV solu Medrol. Remains on empiric antibiotics in the form of azithromycin. The patient is seen today 05/14/2022 in follow-up on the [facility] care unit. He was having issues with altered mental status but is currently awake and alert. Currently maintaining O2 saturations in the 90s on 2 L/m per nasal cannula. Afebrile. Hemodynamically stable. Echocardiogram revealed decreased LV systolic function with ejection fraction of 40-45%. Mild to moderate mitral regurgitation. white count 12.7. Hemoglobin 9.8. Platelet count 122. Sodium 142. Potassium 3.3. Chloride 112. Bicarb 19. BUN 84. Creatinine 3.05. Glucose 142. Continued on DuoNeb inhalations, Symbicort, IV Solu-Medrol. Currently on sodium bicarb tablets. He did have issues with atrial fibrillation with rapid ventricular response. He was loaded with amiodarone. Currently on a Cardizem drip at 5 mg an hour. Remains on heparin drip per weight-based protocol. Lasix 40 mg IV twice daily. Remains in a negative balance. Objective - Vital Signs Vital signs: Vital Signs Temp 96.5 F L 05/14/22 11:53 Pulse 68 05/14/22 12:01 Resp 19 05/14/22 11:53 BP 144/65 05/14/22 11:53 Pulse Ox 96 05/14/22 11:53 FiO2 Intake & Output 05/13/22 05/14/22 05/14/22 18:59 06:59 18:59 Intake Total 803.949 112.5 120 Output Total 1400 500 900 Balance -596.051 -387.5 -780 Weight 86.183 kg Intake: Intake, IV Titration 445.949 112.5 Amount Amiodarone 450 mg In 229.449 Dextrose 5% in Water 250 ml @ 0.5 MG/MIN 16.667 mls/hr IV .Q15H [facility]ELISA Rx#: [id number] Diltiazem 125 mg In 112.5 Sodium Chloride 0.9% 100 ml @ 5 MG/HR 5 mls/hr IV .Q24H [facility] Rx#:[id number] Heparin Sod,Pork in 0.45% 216.5 NaCl 25,000 unit In 0.45 % NaCl 1 250ml.bag @ 11. 603 UNITS/KG/HR 10 mls/hr IV .Q24H MELISA Rx#: [id number] Oral 358 120 Output: Urine 1400 500 900 Other: Voiding Method External Catheter - Exam GENERAL EXAM: Alert, pleasant 81-year-old male patient, sitting up in bed, on 2 L nasal cannula, comfortable in no apparent distress. HEAD: Normocephalic. EYES: Normal reaction of pupils, equal size. NOSE: Clear with pink turbinates. THROAT: No erythema or exudates. NECK: No masses, no JVD. CHEST: No chest wall deformity. LUNGS: Equal air entry with faint crackles in the posterior bases. CVS: S1 and S2 normal with no audible murmur, regular rhythm. ABDOMEN: No hepatosplenomegaly, normal bowel sounds, no guarding or rigidity. SPINE: No scoliosis or deformity SKIN: No rashes CENTRAL NERVOUS SYSTEM: No focal deficits, tone is normal in all 4 extremities. EXTREMITIES: There is no peripheral edema. No clubbing, no cyanosis. Peripheral pulses are intact. - Labs CBC & Chem 7: 05/14/22 06:24 05/14/22 06:24 Labs: Abnormal Lab Results - Last 24 Hours (Table) 05/13/22 05/13/22 05/13/22 Range/Units 16:41 17:18 17:37 WBC (3.8-10.6) k/uL RBC (4.30-5.90) m/uL Hgb (13.0-17.5) gm/dL Hct (39.0-53.0) % Plt Count (150-450) k/uL Neutrophils # (1.3-7.7) k/uL Lymphocytes # (1.0-4.8) k/uL APTT (22.0-30.0) sec ABG pH 7.25 L (7.35-7.45) ABG pO2 72 L (83-108) mmHg ABG HCO3 19 L (21-25) mmol/L Potassium (3.5-5.1) mmol/L Chloride (98-107) mmol/L Carbon Dioxide (22-30) mmol/L BUN (9-20) mg/dL Creatinine (0.66-1.25) mg/dL Glucose (74-99) mg/dL POC Glucose (mg/dL) 304 H (70-110) mg/dL Calcium (8.4-10.2) mg/dL Urine Protein Trace H (Negative) Urine Blood Large H (Negative) Urine RBC 121 H (0-5) /hpf Urine Bacteria Few H (None) /hpf Urine Mucus Rare H (None) /hpf 05/13/22 05/14/22 05/14/22 Range/Units 20:02 04:05 05:57 WBC (3.8-10.6) k/uL RBC (4.30-5.90) m/uL Hgb (13.0-17.5) gm/dL Hct (39.0-53.0) % Plt Count (150-450) k/uL Neutrophils # (1.3-7.7) k/uL Lymphocytes # (1.0-4.8) k/uL APTT (22.0-30.0) sec ABG pH (7.35-7.45) ABG pO2 (83-108) mmHg ABG HCO3 (21-25) mmol/L Potassium (3.5-5.1) mmol/L Chloride (98-107) mmol/L Carbon Dioxide (22-30) mmol/L BUN (9-20) mg/dL Creatinine (0.66-1.25) mg/dL Glucose (74-99) mg/dL POC Glucose (mg/dL) 129 H 59 L 150 H (70-110) mg/dL Calcium (8.4-10.2) mg/dL Urine Protein (Negative) Urine Blood (Negative) Urine RBC (0-5) /hpf Urine Bacteria (None) /hpf Urine Mucus (None) /hpf 05/14/22 05/14/22 05/14/22 Range/Units 06:24 06:24 06:24 WBC 12.7 H (3.8-10.6) k/uL RBC 3.20 L (4.30-5.90) m/uL Hgb 9.8 L (13.0-17.5) gm/dL Hct 31.1 L (39.0-53.0) % Plt Count 122 L (150-450) k/uL Neutrophils # 11.4 H (1.3-7.7) k/uL Lymphocytes # 0.9 L (1.0-4.8) k/uL APTT 59.7 H (22.0-30.0) sec ABG pH (7.35-7.45) ABG pO2 (83-108) mmHg ABG HCO3 (21-25) mmol/L Potassium 3.3 L (3.5-5.1) mmol/L Chloride 112 H (98-107) mmol/L Carbon Dioxide 19 L (22-30) mmol/L BUN 84 H (9-20) mg/dL Creatinine 3.05 H (0.66-1.25) mg/dL Glucose 142 H (74-99) mg/dL POC Glucose (mg/dL) (70-110) mg/dL Calcium 7.6 L (8.4-10.2) mg/dL Urine Protein (Negative) Urine Blood (Negative) Urine RBC (0-5) /hpf Urine Bacteria (None) /hpf Urine Mucus (None) /hpf 05/14/22 Range/Units 11:47 WBC (3.8-10.6) k/uL RBC (4.30-5.90) m/uL Hgb (13.0-17.5) gm/dL Hct (39.0-53.0) % Plt Count (150-450) k/uL Neutrophils # (1.3-7.7) k/uL Lymphocytes # (1.0-4.8) k/uL APTT (22.0-30.0) sec ABG pH (7.35-7.45) ABG pO2 (83-108) mmHg ABG HCO3 (21-25) mmol/L Potassium (3.5-5.1) mmol/L Chloride (98-107) mmol/L Carbon Dioxide (22-30) mmol/L BUN (9-20) mg/dL Creatinine (0.66-1.25) mg/dL Glucose (74-99) mg/dL POC Glucose (mg/dL) 432 H (70-110) mg/dL Calcium (8.4-10.2) mg/dL Urine Protein (Negative) Urine Blood (Negative) Urine RBC (0-5) /hpf Urine Bacteria (None) /hpf Urine Mucus (None) /hpf Assessment and Plan Assessment: Acute RSV infection. Acute exacerbation of COPD with secondary shortness of breath Acute exacerbation of systolic congestive heart failure with estimated ejection fraction of 40-45% Mild to moderate mitral regurgitation Acute hypoxic respiratory failure secondary to above Acute atrial flutter with rapid ventricular response Acute non-ST segment elevation myocardial infarction Bilateral hydronephrosis Coronary artery disease with previous bypass surgery. Sick sinus syndrome with a pacemaker History of congestion heart failure, systolic versus diastolic Hypertension Hyperlipidemia BPH Remote history of lymphoma, completed systemic chemotherapy and the patient has been in remission Diabetes mellitus Chronic stage III kidney disease History of nephrolithiasis Previous history of the left lower extremities History of ulcerative colitis History of chronic anemia Plan: The patient was seen and evaluated Echocardiogram, labs and medications reviewed Currently stable and on 2 L nasal cannula Continued on bronchodilators, IV Solu-Medrol Currently on Cardizem drip, heparin drip Continued on IV diuretics Prognosis is guarded Cardiology and nephrology following We will continue to follow I have personally seen and examined the patient, performed the documentation and the assessment and plan as written. Number of minutes spent on the visit: 10.
[2022-05-14] MEDS: INSULIN DETEMIR (LEVEMIR) 100 UNIT/ML SYR SQ SCH ×2 (12:58→13:00)
--- NOTE | 2022-05-14 16:32 | P.PN ---
Subjective Progress Note Date: 05/14/22 81-year-old male came in with complaints of shortness of breath patient does have extensive history does have history of sick sinus syndrome history of coronary artery disease CABG patient has a wheezing on exam. Patient is requiring oxygen usually doesn't use oxygen at home patient has some wheezing on exam patient is found to have C. Sepsis from RSV. Patient is also on heart failure exacerbation with elevated BNP elevated JVD. Patient has chronic diastolic dysfunction. 05/12/2022 Patient is seen and evaluated in follow-up with pulmonary following a currently maintained on 2 L via nasal cannula and continues with significant wheezing. Patient was maintained on IV steroids and increased per pulmonary's patient continues to have significant wheezing on exam. Patient does not normally wear oxygen the outpatient setting and recommended to wean FiO2 as tolerated. Patient also being treated with IV Lasix for CHF with diastolic dysfunction acute exacerbation. Denies chest pain or palpitations and reports no significant improvement in shortness of breath as of yet. Patient encouraged increased activity as tolerated. Patient also having extremely elevated blood sugars most likely steroid effect and will continue sliding scale and will also start long-acting. Will change diet to consistent carb. Recommend continued monitoring of Accu-Cheks before meals and at bedtime. Will follow-up with repeat labs in the a.m. 05/13/2022 Patient is seen in follow-up today much more lethargic although arousable. Patient had an episode of atrial flutter with RVR and transferred to stepdown unit placed on IV heparin along with Cardizem. Troponin drawn up to 22 with associated chest pain and cardiology considering most likely type II myocardial infarction secondary to atrial flutter. Repeat 2-D echo is ordered and pending. Patient also continues with RSV currently on 2-3 L via nasal cannula. Patient appears dyspneic and working to breathe during exam. Patient also continuing wi th some increased confusion likely metabolic encephalopathy his kidney functions are worsening and nephrology on consult now. Patient being started on IV Lasix twice daily. Chest x-ray shows no overt failure. Concern of jump in white count appears most likely reactive secondary to IV steroids. Patient is on high-dose IV steroids with pulmonary and also cardiology following. Patient continues on oral Zithromax. Patient is also extremely high risk for aspiration recommend head of the bed elevated 45 at all times and strict aspiration precautions. 05/14/2022 Patient is seen and evaluated in follow-up today mentation appears improved and patient was given Seroquel last night. We'll continue at night. Patient being followed by pulmonary along with cardiology currently maintained on oral amiodarone along with IV heparin. Patient is currently atrial paced rhythm. Patient is maintained on oxygen at 3 L although needs frequent reorientation to continue to wear it as he takes it off frequently. Patient reports he is eating although fair and blood sugars being monitored. Patient was nothing by mouth for cardiology although has been eating now and blood sugars are rising although patient was feeling his blood sugars were low and refusing insulin. Patient is also continued on high-dose IV steroids recommend to continue with Accu-Cheks before meals and at bedtime with sliding scale and have decreased the long- acting as patient appears to be dropping blood sugars every night. Patient with significant weakness recommend physical therapy evaluation. Nephrology following as well and patient was given sodium bicarb and now on tablets as kidney functions are worsening recommending indwelling Mcgovern catheter. Patient is continued on IV Lasix for CHF. Patient is currently afebrile denies worsening shortness of breath or any chest pain today. No reports of nausea or vomiting noted. Active Medications Acetaminophen (Acetaminophen Tab 325 Mg Tab) 650 mg PO Q4HR PRN PRN Reason: Mild Pain or Fever > 100.5 Last Admin: 05/14/22 12:25 Dose: 650 mg Albuterol Sulfate (Albuterol Nebulized 2.5 Mg/3 Ml) 2.5 mg INHALATION RT-QID PRN PRN Reason: Shortness Of Breath Last Admin: 05/14/22 05:25 Dose: 2.5 mg Albuterol/Ipratropium (Ipratropium-Albuterol 3 Ml Neb) 3 ml INHALATION RT-QID [facility] Last Admin: 05/14/22 11:48 Dose: 3 ml Amiodarone HCl (Amiodarone 200 Mg Tab) 400 mg PO BID [facility] Last Admin: 05/14/22 08:06 Dose: 400 mg Budesonide/Formoterol Fumarate (Symbicort 160-4.5 Mcg Inhaler) 2 puff INHALATION RT-BID [facility] Last Admin: 05/14/22 08:49 Dose: 2 puff Clopidogrel Bisulfate (Clopidogrel 75 Mg Tab) 75 mg PO DAILY [facility] Last Admin: 05/14/22 08:07 Dose: 75 mg Dextrose/Water (Dextrose 50% Syringe 50 Ml) 25 ml IVP PER PROTOCOL PRN; Protocol PRN Reason: Hypoglycemia Dextrose/Water (Dextrose 50% Syringe 50 Ml) 50 ml IVP PER PROTOCOL PRN; Protocol PRN Reason: Hypoglycemia Famotidine (Famotidine 20 Mg Tab) 20 mg PO DAILY [facility] Last Admin: 05/14/22 08:07 Dose: 20 mg Furosemide (Furosemide 10 Mg/Ml 4 Ml Vial) 40 mg IV BID [facility] Last Admin: 05/14/22 08:06 Dose: 40 mg Glipizide (Glipizide 2.5 Mg Tab) 2.5 mg PO AC-BID [facility] Last Admin: 05/14/22 06:24 Dose: 2.5 mg Heparin Sodium (Porcine) (Heparin Sodium 1,000 Un/Ml (10ml Vl)) 0 unit IV PER PROTOCOL PRN; Protocol PRN Reason: Low PTT Heparin Sodium/Sodium Chloride (25,000 unit/ Sodium Chloride) 250 mls @ 10 mls/hr IV .Q24H [facility]; Protocol Last Admin: 05/13/22 18:19 Dose: 11.603 units/kg/hr, 10 mls/hr Diltiazem HCl 125 mg/ Sodium (Chloride) 125 mls @ 5 mls/hr IV .Q24H [facility] Last Admin: 05/13/22 20:38 Dose: 5 mg/hr, 5 mls/hr Insulin Aspart (Insulin Aspart (Novolog) 100 Unit/Ml Vial) 0 unit SQ ACHS [facility]; Protocol Last Admin: 05/14/22 12:05 Dose: 10 unit Insulin Detemir (Insulin Detemir (Levemir) 100 Unit/Ml Syr) 20 unit SQ DAILY [facility] Last Admin: 05/14/22 13:00 Dose: Not Given Levothyroxine Sodium (Levothyroxine 100 Mcg Tab) 100 mcg PO DAILY@0630 [facility] Last Admin: 05/14/22 06:24 Dose: 100 mcg Methylprednisolone Sodium Succinate (Methylprednisolone Sod Succi 125 Mg/2 Ml Vial) 60 mg IV Q6HR [facility] Last Admin: 05/14/22 12:05 Dose: 60 mg Metoprolol Succinate (Metoprolol Succinate (Er) 50 Mg Tab.Er.24h) 150 mg PO DAILY [facility] Naloxone HCl (Naloxone 0.4 Mg/Ml 1 Ml Vial) 0.2 mg IVP Q2M PRN PRN Reason: Opioid Reversal Quetiapine Fumarate (Quetiapine 25 Mg Tab) 25 mg PO HS [facility] Sodium Bicarbonate (Sodium Bicarbonate Tab 650 Mg Tab) 650 mg PO BID [facility] Last Admin: 05/14/22 08:06 Dose: 650 mg PHYSICAL EXAMINATION: GENERAL: The patient is alert and oriented x2-3. Thin built, ill-appearing, cachectic, extremely elderly-appearing HEENT: Pupils are round and equally reacting to light. EOMI. No scleral icterus. No conjunctival pallor. Normocephalic, atraumatic. No pharyngeal erythema. No thyromegaly. CARDIOVASCULAR: S1 and S2 muffled PULMONARY: Diminished breath sounds bilaterally with some expiratory wheezing and crackles at the bases noted on exam ABDOMEN: Soft, nontender, nondistended, normoactive bowel sounds. No palpable organomegaly. MUSCULOSKELETAL: No joint swelling or deformity. EXTREMITIES: No cyanosis, clubbing, or pedal edema. NEUROLOGICAL: Gross neurological examination did not reveal any focal deficits. Diffusely weak SKIN: No rashes. Assessment: -Acute hypoxic respiratory failure secondary to COPD exacerbation and RSV infection patient is on empiric antibiotic in the form of azithromycin for bronchitis which will be continued and patient will continue with systemic steroids and dose was increased again per pulmonary with significant continued wheezing -Acute renal failure on chronic kidney disease stage V acute renal failure secondary to hypovolemia, worsening and being placed on sodium bicarb tablets -Acute atrial flutter with RVR -Elevated troponin, possibly type II myocardial infarction secondary to atrial flutter -Hyperchloremic metabolic acidosis secondary to IV fluids -Hyperkalemia secondary to IV fluids -Congestive heart failure acute on chronic chronic systolic dysfunction with acute exacerbation, EF is 40-45% -History of Coronary artery disease status post CABG -benign prostatic hypertrophy -hypertension -Diabetes mellitus , type II uncontrolled with elevated blood sugars secondary to systemic steroids patient is on glipizide which will be continued along with sliding scale -Hypertension -History of ulcerative colitis presently not on any medications -Anemia of chronic disease -DVT prophylaxis: Subcutaneous heparin Plan: Recommend to continue current medications and management with pulmonary following. Patient continues on high-dose IV steroids and having elevated blood sugars and have added long-acting and will continue sliding scale. Patient went into heart rates of 130s with atrial flutter with RVR and cardiology following and placed on heparin drip along with being transitioned to oral amiodarone, likely type II myocardial infarction Blood sugars elevated and will continue sliding scale and also adjust the dose of long-acting and recommended continue Accu-Cheks before meals and at bedtime Recommend repeat labs in the a.m. Leukocytosis, likely reactive secondary to high-dose steroids and patient is on Zithromax Patient is maintained on 2 L via nasal cannula and recommended wean FiO2 as tolerated, extremely dyspneic with minimal exertion, needs encouragement keeping the oxygen on Encouraged to increase activity as tolerated and will have PT evaluate the patient Due to multiple complex medical issues, Prognosis is guarded Need to discuss further with family about CODE STATUS The impression and plan of care has been dictated by Yaquelin Frances, Nurse Practitioner as directed. Dr. Chucho MD I have performed a history and examination and MDM of this patient, discussed the same with the dictator, and agree with the dictator's assessment and plan as written ,documented as a scribe. Based on total visit time, I have performed more than 50% of the visit. Objective - Vital Signs Vital signs: Vital Signs Temp 97.5 F L 05/14/22 08:00 Pulse 65 05/14/22 09:00 Resp 18 05/14/22 08:00 BP 144/64 05/14/22 08:00 Pulse Ox 95 05/14/22 08:00 FiO2 Intake & Output 05/13/22 05/14/22 05/14/22 18:59 06:59 18:59 Intake Total 803.949 112.5 Output Total 1400 500 Balance -596.051 -387.5 Weight 86.183 kg Intake: Intake, IV Titration 445.949 112.5 Amount Amiodarone 450 mg In 229.449 Dextrose 5% in Water 250 ml @ 0.5 MG/MIN 16.667 mls/hr IV .Q15H [facility] Rx#: [id number] Diltiazem 125 mg In 112.5 Sodium Chloride 0.9% 100 ml @ 5 MG/HR 5 mls/hr IV .Q24H [facility] Rx#:[id number] Heparin Sod,Pork in 0.45% 216.5 NaCl 25,000 unit In 0.45 % NaCl 1 250ml.bag @ 11. 603 UNITS/KG/HR 10 mls/hr IV .Q24H [facility] Rx#: [id number] Oral 358 Output: Urine 1400 500 Other: Voiding Method External Catheter - Labs CBC & Chem 7: 05/14/22 06:24 05/14/22 06:24 Labs: Abnormal Lab Results - Last 24 Hours (Table) 05/13/22 05/13/22 05/13/22 Range/Units 16:41 17:18 17:37 APTT (22.0-30.0) sec ABG pH 7.25 L (7.35-7.45) ABG pO2 72 L (83-108) mmHg ABG HCO3 19 L (21-25) mmol/L POC Glucose (mg/dL) 304 H (70-110) mg/dL Urine Protein Trace H (Negative) Urine Blood Large H (Negative) Urine RBC 121 H (0-5) /hpf Urine Bacteria Few H (None) /hpf Urine Mucus Rare H (None) /hpf 05/13/22 05/14/22 05/14/22 Range/Units 20:02 04:05 05:57 APTT (22.0-30.0) sec ABG pH (7.35-7.45) ABG pO2 (83-108) mmHg ABG HCO3 (21-25) mmol/L POC Glucose (mg/dL) 129 H 59 L 150 H (70-110) mg/dL Urine Protein (Negative) Urine Blood (Negative) Urine RBC (0-5) /hpf Urine Bacteria (None) /hpf Urine Mucus (None) /hpf 05/14/22 Range/Units 06:24 APTT 59.7 H (22.0-30.0) sec ABG pH (7.35-7.45) ABG pO2 (83-108) mmHg ABG HCO3 (21-25) mmol/L POC Glucose (mg/dL) (70-110) mg/dL Urine Protein (Negative) Urine Blood (Negative) Urine RBC (0-5) /hpf Urine Bacteria (None) /hpf Urine Mucus (None) /hpf
[2022-05-14 16:59] LABS: Glucose,Whole Blood 248 mg/dL (70-110)
[2022-05-14] MEDS: HEPARIN SOD,PORK IN 0.45% NACL 25,000 UNIT in 0.45% NACL 1 250ML.BAG IV SCH (17:19)
[2022-05-14 19:58] LABS: Glucose,Whole Blood 286 mg/dL (70-110)
[2022-05-14] MEDS: QUEtiapine 25 MG TAB PO SCH (20:41)
[2022-05-15] MEDS: methylPREDNISolone SOD SUCCI 125 MG/2 ML VIAL IV SCH ×5 (00:57→23:46)
[2022-05-15 01:35] LABS: Basophils % (A) 0 %; Eosinophils % (A) 0 %; HGB 9.4 gm/dL (13.0-17.5); Lymphocytes # (A) 0.9 k/uL (1.0-4.8); Lymphocytes % (A) 9 %; MCH 28.7 pg (25.0-35.0); MCHC 30.4 g/dL (31.0-37.0); MCV 94.5 fL (80.0-100.0); Mean Platelet Volume 8.5; Monocytes # (A) 0.3 k/uL (0-1.0); Monocytes % (A) 3 %; Neutrophils # (A) 8.9 k/uL (1.3-7.7); Neutrophils % (A) 88 %; Platelet Count 103 k/uL (150-450); RBC 3.28 m/uL (4.30-5.90); RDW 13.8 % (11.5-15.5); WBC 10.1 k/uL (3.8-10.6)
[2022-05-15 05:45] LABS: Glucose,Whole Blood 88 mg/dL (70-110)
[2022-05-15] MEDS: IPRATROPIUM-ALBUTEROL 3 ML NEB INHALATION SCH ×4 (06:03→19:36)
[2022-05-15] MEDS: INSULIN ASPART (NovoLOG) 100 UNIT/ML VIAL SQ SCH ×4 (06:15→20:27)
[2022-05-15] MEDS: LEVOTHYROXINE 100 MCG TAB PO SCH (06:19)
[2022-05-15] MEDS: ACETAMINOPHEN TAB 325 MG TAB PO PRN ×2 (06:22→20:21)
[2022-05-15] MEDS: AMIODARONE 200 MG TAB PO SCH ×2 (08:05→20:20)
[2022-05-15] MEDS: SODIUM BICARBONATE TAB 650 MG TAB PO SCH ×2 (08:05→20:20)
[2022-05-15] MEDS: CLOPIDOGREL 75 MG TAB PO SCH (08:05)
[2022-05-15] MEDS: FUROSEMIDE 10 MG/ML 4 ML VIAL IV SCH ×2 (08:06→20:23)
[2022-05-15] MEDS: FAMOTIDINE 20 MG TAB PO SCH (08:06)
[2022-05-15] MEDS: METOPROLOL SUCCINATE (ER) 50 MG TAB.ER.24H PO SCH (08:06)
[2022-05-15] MEDS: INSULIN DETEMIR (LEVEMIR) 100 UNIT/ML SYR SQ SCH (08:08)
--- NOTE | 2022-05-15 08:10 | P.PN ---
Subjective Patient is seen for follow-up for acute kidney injury associated with hypotension, hemodynamic instability and cardiorenal. Currently being diuresed. Patient states he is feeling better with improvement in shortness of breath. Heart rate is better controlled. Patient has external catheter with urine output of 1.9 L. Ultrasound shows moderate hydronephrosis bilaterally. Serum creatinine is up to 3.0 mg/dL yesterday. Patient had significant hematuria overnight. Hemoglobin noted to be 9.4 g/dL. Labs are pending from today. Objective - Vital Signs Vital signs: Vital Signs Temp 98.0 F 05/15/22 08:03 Pulse 65 05/15/22 08:03 Resp 16 05/15/22 05:52 BP 134/63 05/15/22 08:03 Pulse Ox 90 L 05/15/22 08:03 FiO2 Intake & Output 05/14/22 05/15/22 05/15/22 18:59 06:59 18:59 Intake Total 830 Output Total 900 1800 Balance -70 -1800 Intake: Intake, IV Titration 230 Amount Heparin Sod,Pork in 0.45% 230 NaCl 25,000 unit In 0.45 % NaCl 1 250ml.bag @ 11. 603 UNITS/KG/HR 10 mls/hr IV .Q24H [facility] Rx#: [id number] Oral 600 Output: Urine 900 1800 Other: Voiding Method Indwelling Catheter Indwelling Catheter # Bowel Movements 0 - Exam Awake, comfortable, no acute distress Examination of the heart S1 and S2 Examination lungs decreased breath sounds at the bases Abdomen is soft obese nontender Examination of lower ex Mittie shows chronic skin changes with chronic edema [employer] exam 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 - Labs CBC & Chem 7: 05/15/22 01:10 05/14/22 06:24 Labs: Abnormal Lab Results - Last 24 Hours (Table) 05/14/22 05/14/22 05/14/22 Range/Units 06:24 06:24 11:47 WBC 12.7 H (3.8-10.6) k/uL RBC 3.20 L (4.30-5.90) m/uL Hgb 9.8 L (13.0-17.5) gm/dL Hct 31.1 L (39.0-53.0) % MCHC (31.0-37.0) g/dL Plt Count 122 L (150-450) k/uL Neutrophils # 11.4 H (1.3-7.7) k/uL Lymphocytes # 0.9 L (1.0-4.8) k/uL APTT (22.0-30.0) sec Potassium 3.3 L (3.5-5.1) mmol/L Chloride 112 H (98-107) mmol/L Carbon Dioxide 19 L (22-30) mmol/L BUN 84 H (9-20) mg/dL Creatinine 3.05 H (0.66-1.25) mg/dL Glucose 142 H (74-99) mg/dL POC Glucose (mg/dL) 432 H (70-110) mg/dL Calcium 7.6 L (8.4-10.2) mg/dL 05/14/22 05/14/22 05/15/22 Range/Units 16:58 19:57 01:10 WBC (3.8-10.6) k/uL RBC 3.28 L (4.30-5.90) m/uL Hgb 9.4 L (13.0-17.5) gm/dL Hct 31.0 L (39.0-53.0) % MCHC 30.4 L (31.0-37.0) g/dL Plt Count 103 L (150-450) k/uL Neutrophils # 8.9 H (1.3-7.7) k/uL Lymphocytes # 0.9 L (1.0-4.8) k/uL APTT (22.0-30.0) sec Potassium (3.5-5.1) mmol/L Chloride (98-107) mmol/L Carbon Dioxide (22-30) mmol/L BUN (9-20) mg/dL Creatinine (0.66-1.25) mg/dL Glucose (74-99) mg/dL POC Glucose (mg/dL) 248 H 286 H (70-110) mg/dL Calcium (8.4-10.2) mg/dL 05/15/22 Range/Units 01:10 WBC (3.8-10.6) k/uL RBC (4.30-5.90) m/uL Hgb (13.0-17.5) gm/dL Hct (39.0-53.0) % MCHC (31.0-37.0) g/dL Plt Count (150-450) k/uL Neutrophils # (1.3-7.7) k/uL Lymphocytes # (1.0-4.8) k/uL APTT 51.7 H (22.0-30.0) sec Potassium (3.5-5.1) mmol/L Chloride (98-107) mmol/L Carbon Dioxide (22-30) mmol/L BUN (9-20) mg/dL Creatinine (0.66-1.25) mg/dL Glucose (74-99) mg/dL POC Glucose (mg/dL) (70-110) mg/dL Calcium (8.4-10.2) mg/dL Assessment and Plan Assessment: 1. Acute kidney injury, cardiorenal and obstructive uropathy with ultrasound showing bilateral moderate hydronephrosis. Blood pressure had been on the lower side as well which contribute to the acute kidney injury. UA shows trace protein and large blood WBCs 1. 2. CK D stage III B with baseline creatinine about 1.5 mg/dL in September 2020 with episode of acute kidney injury in July 2021 with peak creatinine at about 4 mg/dL and lowest at 1.9 on 07/30/2021. 3. Non-gap metabolic acidosis secondary to acute kidney injury 4. Acute on top of chronic systolic CHF. Ejection fraction 40-45% in June 2020 5. Acute hypoxic respiratory failure secondary to RSV and component of CHF 6. History of COPD 7. Acute ME maintained on IV heparin 8. Moderate bilateral hydronephrosis, will insert Mcgovern catheter 9. Hematuria possibly traumatic. Monitor hemoglobin and urology consult Plan: Continue with Mcgovern catheter Consult urology Continue to diurese patient Repeat labs in a.m.
[2022-05-15] MEDS: SYMBICORT 160-4.5 MCG INHALER INHALATION SCH ×2 (08:21→19:36)
[2022-05-15 08:36] LABS: Basophils % (A) 0 %; Eosinophils % (A) 0 %; HCT 29.9 % (39.0-53.0); HGB 9.5 gm/dL (13.0-17.5); Hypochromasia Marked; Lymphocytes # (A) 0.7 k/uL (1.0-4.8); Lymphocytes % (A) 8 %; MCH 31.2 pg (25.0-35.0); MCHC 31.7 g/dL (31.0-37.0); MCV 98.5 fL (80.0-100.0); Mean Platelet Volume 8.2; Monocytes # (A) 0.2 k/uL (0-1.0); Monocytes % (A) 2 %; Neutrophils # (A) 7.9 k/uL (1.3-7.7); Neutrophils % (A) 89 %; RBC 3.04 m/uL (4.30-5.90); RDW 13.3 % (11.5-15.5); WBC 8.9 k/uL (3.8-10.6)
[2022-05-15 08:59] LABS: Calcium 7.3 mg/dL (8.4-10.2); Magnesium 1.8 mg/dL (1.6-2.3); Potassium 2.9 mmol/L (3.5-5.1)
[2022-05-15 09:37] LABS: Platelet Count 98 k/uL (150-450)
[2022-05-15] MEDS ORDERED: Potassium Replacement Protocol 1 EACH MISC MISCELLANE PRN (09:47)
[2022-05-15] MEDS: POTASSIUM CHLORIDE ER 20 MEQ TAB.ER PO SCH ×2 (11:10→12:27)
[2022-05-15] MEDS: TAMSULOSIN 0.4 MG CAP.ER.24H PO SCH (11:10)
[2022-05-15] MEDS: POTASSIUM CHLORIDE 10 MEQ in WATER FOR INJECTION 1 100ML.BAG IVPB SCH ×6 (11:12→18:35)
--- NOTE | 2022-05-15 11:13 | P.PN ---
Subjective HISTORY OF PRESENTING ILLNESS Patient is a pleasant 81-year-old male with history of CAD status post CABG 2001 ischemic cardiomyopathy status post AICD, [facility], hypertension, diabetes mellitus type 2, paroxysmal atrial fibrillation not on anticoagulation previously secondary to GI bleeding and hyperlipidemia. He had previously followed with Dr. Bravo however states has been following with a new bottom precipitator operator and patient is unsure which one. Previous echo June 2020 showed EF 40-45% however reported decreased EF by more recent echo. Patient presented with shortness of breath and was found to have influenza. Initial EKG had shown sinus rhythm. Patient went into atrial flutter with RVR with heart rate 150 and patient developed chest pain with this. He was attempted with nitro however he did have decrease in blood pressure and additionally was given amiodarone and Cardizem. After approximately 45 minutes he did have return of heart rates into the 60s with what appears to be paced rhythm. White blood cell count did increase from 8.0 up to 18.6. Troponins have been chronically elevated in the past however went from 0.6 up to 1.4 up to 22. ProBNP increased at 26,000. His creatinine has increased from baseline 1.7-2 a nd 2.2 on presentation up to 2.7. He currently remains on a heparin drip with Plavix and has been on amiodarone drip as well as the metoprolol 50 mg daily. Concern of worsening pulmonary edema and therefore was placed on 40 mg IV twice a day. 05/14 Patient seen and examined. Patient stating he had some increased shortness breath this morning however better than yesterday. Creatinine increased to 3.0. No significant hypotension noted. His metoprolol was increased at 100 mg daily and remains on amiodarone oral. Brief run of nonsustained VT. Patient remains in atrial paced rhythm in the 60s. 05/15 Patient seen and examined. Patient admits to continued shortness breath. Urine output has been 1.9 L last 24 hours. Remains on Lasix 40 mg IV twice a day. Creatinine increased to 3.28 today. PHYSICAL EXAMINATION Vital signs reviewed. CONSTITUTIONAL: No apparent distress, ill appearing, frail HEENT: Head is normocephalic. Pupils are equal, round. Sclerae anicteric. Mucous membranes of the mouth are moist. No JVD. No carotid bruit. CHEST EXAMINATION: Bilateral crackles and rhonchi HEART EXAMINATION: Regular rate and rhythm. S1, S2 heard. No murmurs, gallops or rub. ABDOMEN: Soft, nontender. Positive bowel sounds. EXTREMITIES: 2+ peripheral pulses, no lower extremity edema and no calf tenderness. NEUROLOGIC EXAMINATION: Patient is awake, alert and oriented x3. ASSESSMENT 1. Non-STEMI likely type II mechanism related to atrial flutter with RVR 2. Typical atrial flutter with RVR heart rates 150s highly symptomatic 3. Acute on chronic respiratory failure related to RSV as well as heart failure 4. Acute on chronic systolic heart failure 5. History of ischemic cardiomyopathy EF ranging from reportedly 25% up to 40- 45% 6. Hypertension 7. CAD status post CABG 8. Chronic kidney disease, mild increase in creatinine PLAN Non-STEMI related to atrial flutter with RVR. Given his defibrillator and atrial paced attempt to rate control and increase metoprolol and continue with amiodarone. Decrease Amio to 200mg bid 05/20 then 200mg daily 05/27. Appears near euvolemic and defer further diuretics to Nephro. Increased creatinine may be related to ATN from atrial flutter with RVR 3 days ago. Echo shows EF 40-45%. Continue medical therapy. Stop heparin and Eliquis 2.5mg bid. No further recs from cardiology standpoint. Please call with questions Prognosis guarded. Objective - Vital Signs Vital signs: Vital Signs Temp 98.0 F 05/15/22 08:03 Pulse 65 05/15/22 08:03 Resp 21 05/15/22 08:28 BP 134/63 05/15/22 08:03 Pulse Ox 90 L 05/15/22 08:03 FiO2 Intake & Output 05/14/22 05/15/22 05/15/22 18:59 06:59 18:59 Intake Total 830 354 Output Total 900 1800 450 Balance -70 1800 Intake: Intake, IV Titration 230 Amount Heparin Sod,Pork in 0.45% 230 NaCl 25,000 unit In 0.45 % NaCl 1 250ml.bag @ 11. 603 UNITS/KG/HR 10 mls/hr IV .Q24H [facility] Rx#: [id number] Oral 600 354 Output: Urine 900 1800 450 Other: Voiding Method Indwelling Catheter Indwelling Catheter Indwelling Catheter # Bowel Movements 0 - Labs CBC & Chem 7: 05/15/22 08:14 05/15/22 08:14 Labs: Abnormal Lab Results - Last 24 Hours (Table) 05/14/22 05/14/22 05/14/22 Range/Units 11:47 16:58 19:57 RBC (4.30-5.90) m/uL Hgb (13.0-17.5) gm/dL Hct (39.0-53.0) % MCHC (31.0-37.0) g/dL Plt Count (150-450) k/uL Neutrophils # (1.3-7.7) k/uL Lymphocytes # (1.0-4.8) k/uL APTT (22.0-30.0) sec Potassium (3.5-5.1) mmol/L Chloride (98-107) mmol/L Carbon Dioxide (22-30) mmol/L BUN (9-20) mg/dL Creatinine (0.66-1.25) mg/dL Glucose (74-99) mg/dL POC Glucose (mg/dL) 432 H 248 H 286 H (70-110) mg/dL Calcium (8.4-10.2) mg/dL 05/15/22 05/15/22 05/15/22 Range/Units 01:10 01:10 08:14 RBC 3.28 L (4.30-5.90) m/uL Hgb 9.4 L (13.0-17.5) gm/dL Hct 31.0 L (39.0-53.0) % MCHC 30.4 L (31.0-37.0) g/dL Plt Count 103 L (150-450) k/uL Neutrophils # 8.9 H (1.3-7.7) k/uL Lymphocytes # 0.9 L (1.0-4.8) k/uL APTT 51.7 H (22.0-30.0) sec Potassium 2.9 L (3.5-5.1) mmol/L Chloride 110 H (98-107) mmol/L Carbon Dioxide 21 L (22-30) mmol/L BUN 92 H (9-20) mg/dL Creatinine 3.28 H (0.66-1.25) mg/dL Glucose 149 H (74-99) mg/dL POC Glucose (mg/dL) (70-110) mg/dL Calcium 7.3 L (8.4-10.2) mg/dL 05/15/22 Range/Units 08:14 RBC 3.04 L (4.30-5.90) m/uL Hgb 9.5 L (13.0-17.5) gm/dL Hct 29.9 L (39.0-53.0) % MCHC (31.0-37.0) g/dL Plt Count 98 L (150-450) k/uL Neutrophils # 7.9 H (1.3-7.7) k/uL Lymphocytes # 0.7 L (1.0-4.8) k/uL APTT (22.0-30.0) sec Potassium (3.5-5.1) mmol/L Chloride (98-107) mmol/L Carbon Dioxide (22-30) mmol/L BUN (9-20) mg/dL Creatinine (0.66-1.25) mg/dL Glucose (74-99) mg/dL POC Glucose (mg/dL) (70-110) mg/dL Calcium (8.4-10.2) mg/dL
[2022-05-15 11:24] LABS: Glucose,Whole Blood 291 mg/dL (70-110)
--- NOTE | 2022-05-15 11:59 | P.PN ---
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 Is coming in with increasing dyspnea, chest tightness and wheezing and the patient in emergency department was diagnosed having a positive RSV infection by PCR. Influenza was negative. Covid 19 testing was negative. Chest x-ray was consistent with some mild subsegmental atelectatic changes in the right midlung, no other acute abnormalities noted. Sternal wires were present. He was started on bronchodilators and steroids. He was started also on oxygen therapy and the patient is currently on 2 L O2 nasal cannula. He is still struggling with his breathing is short of breath. His comorbid conditions include coronary artery disease with previous bypass surgery, hypertension, ulcerative colitis currently inactive and stable, chronic diastolic heart failure and COPD. The patient also has history of lymphoma treated with systemic chemotherapy seems to be in remission since 2011. I am evaluating this patient today on 05/12/2022. The patient appears fairly comfortable on 2 L nasal cannula in bed. The patient has an audible expiratory wheeze on auscultation. His IV Solu-Medrol was weaned down, to obtain better glucose control by primary. His most recent CBC count on 05/11/2022 revealed a WBC of 8, hemoglobin 9.6, hematocrit 29.9, platelets 110. Today's BMP from 05/12/2022 shows a sodium 141, potassium of 4.7, chloride of 111, serum CO2 of 16.9, V1 53, creatinine of 2.3, glucose of 214.most recent chest x-ray on 05/11/2022 revealed mild subsegmental atelectasis in the right, mid lung which was new compared to old exam. He is managed on DuoNeb inhalation and IV Solu- Medrol. He is on empiric antibiotic coverage with Zithromax. The patient is seen today 05/13/2022 in follow-up on the selective care unit. He is currently maintaining O2 saturations in the 90s on 2 L/m per nasal cannula. Follow-up chest x-ray reveals mild pulmonary venous congestion without overt failure. White count 18.6. Hemoglobin 9.1. Platelets 140. Sodium 144. Potassium 4.2. Bicarb 17. BUN 68. Creatinine 2.72. Troponins 22.7. ProBNP 26,800. Glucose 166. Ultrasound of the kidneys/bladder revealed moderate hydronephrosis bilaterally. Last evening he developed atrial flutter with a rapid ventricular response and significant chest discomfort with noted ST depression. Rapid response team was called and he was transferred to the selective care unit. He's been initiated on amiodarone drip. He is on Lasix 40 mg IV every 12 hours. Remains on a heparin drip per weight base protocol. He is continued on DuoNeb inhalations, Symbicort, IV solu Medrol. Remains on empiric antibiotics in the form of azithromycin. The patient is seen today 05/14/2022 in follow-up on the selective care unit. He was having issues with altered mental status but is currently awake and alert. Currently maintaining O2 saturations in the 90s on 2 L/m per nasal cannula. Afebrile. Hemodynamically stable. Echocardiogram revealed decreased LV systolic function with ejection fraction of 40-45%. Mild to moderate mitral regurgitation. white count 12.7. Hemoglobin 9.8. Platelet count 122. Sodium 142. Potassium 3.3. Chloride 112. Bicarb 19. BUN 84. Creatinine 3.05. Glucose 142. Continued on DuoNeb inhalations, Symbicort, IV Solu-Medrol. Currently on sodium bicarb tablets. He did have issues with atrial fibrillation with rapid ventricular response. He was loaded with amiodarone. Currently on a Cardizem drip at 5 mg an hour. Remains on heparin drip per weight-based protocol. Lasix 40 mg IV twice daily. Remains in a negative balance. reevaluated today on 05/15/22, patient continues to be marginal, continues to have intermittent episodes of cough and wheezing. Not quite ready for discharge planning. Remains on bronchodilators, remains on steroids, remains on Lasix. And he is also on heparin.WBC count is 8.9 hemoglobin 9.5, potassium is low at 2.9 BUN is elevated at 92 creatinine 3.28., renal profile has been gradually getting worse. May have to consider cutting down on his diuretics.his last chest x-ray was 2 days ago, I plan to repeat his chest x-ray in a.m.last chest x-ray showed mild pulmonary venous congestion, no evidence of overt failure. Objective - Vital Signs Vital signs: Vital Signs Temp 98.0 F 05/15/22 08:03 Pulse 57 L 05/15/22 11:25 Resp 24 05/15/22 11:25 BP 154/68 05/15/22 11:25 Pulse Ox 95 05/15/22 11:25 FiO2 Intake & Output 05/14/22 05/15/22 05/15/22 18:59 06:59 18:59 Intake Total 830 354 Output Total 900 1800 450 Balance -70 -1800 -96 Intake: Intake, IV Titration 230 Amount Heparin Sod,Pork in 0.45% 230 NaCl 25,000 unit In 0.45 % NaCl 1 250ml.bag @ 11. 603 UNITS/KG/HR 10 mls/hr IV .Q24H [facility] Rx#: [id number] Oral 600 354 Output: Urine 900 1800 450 Other: Voiding Method Indwelling Catheter Indwelling Catheter Indwelling Catheter # Bowel Movements 0 - Exam GENERAL EXAM: Alert, pleasant 81-year-old male patient, on 3 L nasal cannula, comfortable in no apparent distress. HEAD: Normocephalic. EYES: Normal reaction of pupils, equal size. NOSE: Clear with pink turbinates. THROAT: No erythema or exudates. NECK: No masses, no JVD. CHEST: No chest wall deformity. LUNGS: crackles and rhonchi persist bilaterally. CVS: S1 and S2 normal with no audible murmur, regular rhythm. ABDOMEN: No hepatosplenomegaly, normal bowel sounds, no guarding or rigidity. SPINE: No scoliosis or deformity SKIN: No rashes CENTRAL NERVOUS SYSTEM: No focal deficits, tone is normal in all 4 extremities. EXTREMITIES: There is no peripheral edema. No clubbing, no cyanosis. Periphe ral pulses are intact. - Labs CBC & Chem 7: 05/15/22 08:14 05/15/22 08:14 Labs: Abnormal Lab Results - Last 24 Hours (Table) 05/14/22 05/14/22 05/15/22 Range/Units 16:58 19:57 01:10 RBC 3.28 L (4.30-5.90) m/uL Hgb 9.4 L (13.0-17.5) gm/dL Hct 31.0 L (39.0-53.0) % MCHC 30.4 L (31.0-37.0) g/dL Plt Count 103 L (150-450) k/uL Neutrophils # 8.9 H (1.3-7.7) k/uL Lymphocytes # 0.9 L (1.0-4.8) k/uL APTT (22.0-30.0) sec Potassium (3.5-5.1) mmol/L Chloride (98-107) mmol/L Carbon Dioxide (22-30) mmol/L BUN (9-20) mg/dL Creatinine (0.66-1.25) mg/dL Glucose (74-99) mg/dL POC Glucose (mg/dL) 248 H 286 H (70-110) mg/dL Calcium (8.4-10.2) mg/dL 05/15/22 05/15/22 05/15/22 Range/Units 01:10 08:14 08:14 RBC 3.04 L (4.30-5.90) m/uL Hgb 9.5 L (13.0-17.5) gm/dL Hct 29.9 L (39.0-53.0) % MCHC (31.0-37.0) g/dL Plt Count 98 L (150-450) k/uL Neutrophils # 7.9 H (1.3-7.7) k/uL Lymphocytes # 0.7 L (1.0-4.8) k/uL APTT 51.7 H (22.0-30.0) sec Potassium 2.9 L (3.5-5.1) mmol/L Chloride 110 H (98-107) mmol/L Carbon Dioxide 21 L (22-30) mmol/L BUN 92 H (9-20) mg/dL Creatinine 3.28 H (0.66-1.25) mg/dL Glucose 149 H (74-99) mg/dL POC Glucose (mg/dL) (70-110) mg/dL Calcium 7.3 L (8.4-10.2) mg/dL 05/15/22 Range/Units 11:22 RBC (4.30-5.90) m/uL Hgb (13.0-17.5) gm/dL Hct (39.0-53.0) % MCHC (31.0-37.0) g/dL Plt Count (150-450) k/uL Neutrophils # (1.3-7.7) k/uL Lymphocytes # (1.0-4.8) k/uL APTT (22.0-30.0) sec Potassium (3.5-5.1) mmol/L Chloride (98-107) mmol/L Carbon Dioxide (22-30) mmol/L BUN (9-20) mg/dL Creatinine (0.66-1.25) mg/dL Glucose (74-99) mg/dL POC Glucose (mg/dL) 291 H (70-110) mg/dL Calcium (8.4-10.2) mg/dL Assessment and Plan Assessment: Acute RSV infection. Acute exacerbation of COPD with secondary shortness of breath Acute hypoxic respiratory failure secondary to above Acute atrial flutter with rapid ventricular response Acute non-ST segment elevation myocardial infarction Bilateral hydronephrosis Coronary artery disease with previous bypass surgery. Sick sinus syndrome with a pacemaker History of congestion heart failure, systolic versus diastolic Hypertension Hyperlipidemia BPH Remote history of lymphoma, completed systemic chemotherapy and the patient has been in remission Diabetes mellitus Chronic stage III kidney disease History of nephrolithiasis Previous history of the left lower extremities History of ulcerative colitis History of chronic anemia Plan Currently stable and on 3 L nasal cannula Continued on bronchodilators cardiology is addressing his atrial flutter. And his elevated troponin. Continued on IV diuretics Prognosis is guarded We will continue to follow and make further recommendations based on his clinical status , continue steroids. Not quite ready for discharge planning Time with Patient: Less than 30
--- NOTE | 2022-05-15 13:47 | P.GSCN ---
History of Present Illness Consult date: 05/15/22 Reason for Consult: Hydronephrosis Requesting physician: Lesly Murry History of present illness: The patient is an 81-year-old male with a past medical history significant for COPD, CHF, ischemic cardiomyopathy, coronary artery disease, diabetes mellitus, hyperlipidemia, hypertension, urinary tract infections, CKD stage IIIB, and nephrolithiasis. He presented to the emergency department on 05/11/22 with shortness of breath. The patient tested positive for RSV and is being followed by the pulmonary service. The patient also went into A flutter with RVR with a heart rate of 150. Cardiology was consulted and he was given amiodarone and Cardizem. He has had a non-STEMI likely type II mechanism related to the a flutter with RVR. He also has an acute on chronic kidney injury for which nephrology is following. UA shows trace protein and large WBCs. Abdominal/bladder ultrasound shows moderate hydronephrosis bilaterally and urology was consulted for this reason. Review of Systems - Constitutional Reports chills, Reports fever - Cardiovascular Reports shortness of breath - Respiratory Reports cough Past Medical History Past Medical History: Coronary Artery Disease (CAD), Cancer, COPD, Diabetes Mellitus, Hyperlipidemia, Hypertension, Thyroid Disorder Additional Past Medical History / Comment(s): ,bladder stones,and urinary infect ion and cellulitis kailyn legs,lymphoma, chemotherapy, radiation,- 06/2011, colitis History of Any Multi-Drug Resistant Organisms: None Reported Past Surgical History: AICD, Coronary Bypass/CABG, Heart Catheterization With Stent, Orthopedic Surgery, Pacemaker Additional Past Surgical History / Comment(s): Lt ankle - plate. sinus surgery s/t cancer. CABG-4 vessels. pacemaker/defib. [facility] upper left chest Past Anesthesia/Blood Transfusion Reactions: No Reported Reaction Additional Past Anesthesia/Blood Transfusion Reaction / Comm: no probles with prior blood transfusion Date of Last Stent Placement:: 2001 Type of Cardiac Device: Permanent Pacemaker, AICD Device Placement Date:: 2001 Past Psychological History: No Psychological Hx Reported Smoking Status: Former smoker Past Alcohol Use History: None Reported Additional Past Alcohol Use History / Comment(s): Patient quit smoking in 1967. Past Drug Use History: None Reported - Past Family History Brother(s) Family Medical History: Myocardial Infarction ([place]) Additional Family Medical History / Comment(s): Patient has 3 brothers and one has history of coronary artery disease. Sister(s) Additional Family Medical History / Comment(s): Patient has one sister with history of SVT and AVR. Son(s) Additional Family Medical History / Comment(s): Patient has 2 sons and one has history of kidney stones. Patient does not have any daughters. Patient has a grandson treated for SVT. Father Family Medical History: Myocardial Infarction ([place]) Additional Family Medical History / Comment(s): Father at age 72 with hist ory of coronary artery disease and CABG Mother Family Medical History: No Reported History Additional Family Medical History / Comment(s): Mother at age 93 Medications and Allergies Home Medications Medication Instructions Recorded Confirmed Type Levothyroxine Sodium [Synthroid] 100 mcg PO DAILY 08/04/14 05/11/22 History glipiZIDE [Glucotrol XL] 5 mg PO DAILY 08/04/14 05/11/22 History Albuterol Nebulized [Ventolin 2.5 mg INHALATION RT-QID 11/05/16 05/11/22 History Nebulized] Ipratropium Nebulized [Atrovent 0.5 mg INHALATION RT-QID 11/05/16 05/11/22 History Nebulized 0.2 MG/ML] Vit C/E/Zn/Coppr/Lutein/Zeaxan 1 cap PO BID 04/22/18 05/11/22 History [Preservision Areds 2 Softgel] Albuterol Inhaler [Ventolin Hfa 2 puff INHALATION RT-QID PRN 07/03/20 05/11/22 History Inhaler] Magnesium Oxide [Mag-Ox] 400 mg PO DAILY #30 tablet 07/05/20 05/11/22 Rx Clopidogrel [Plavix] 75 mg PO DAILY 09/19/20 05/11/22 History Famotidine [Pepcid] 20 mg PO DAILY 09/19/20 05/11/22 History Acetaminophen Tab [Tylenol] 650 mg PO Q6HR PRN tab 07/30/21 05/11/22 Rx Furosemide [Lasix] 40 mg PO DIRECTED 05/11/22 05/11/22 History Metoprolol Tartrate [Lopressor] 50 mg PO DAILY 05/11/22 05/11/22 History Potassium Chloride ER [K-Dur 20] 20 meq PO DAILY 05/11/22 05/11/22 History Allergies Allergy/AdvReac Type Severity Reaction Status Date / Time esmolol [From Brevibloc] AdvReac "felt like Verified 05/11/22 12:04 I was going to pass out" Surgical - Exam Vital Signs Temp Pulse Resp BP Pulse Ox 98.2 F 100 16 171/90 93 L 05/11/22 02:59 05/11/22 02:59 05/11/22 02:59 05/11/22 02:59 05/11/22 02:59 General: Well developed, well nourished. No acute distress. Chronically ill appearing HEENT: Head is atraumatic, normocephalic. Lungs: Respirations labored. on 3L NC Abdomen/GI: Soft.No guarding, rigidity, or abdominal tenderness. : No suprapubic tenderness. Mcgovern catheter draining blood tinged urine Skin: Warm and dry Neurologic: Awake, alert and oriented times 3. CN II-XII 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. No focal deficits. Psychiatric: Appropriate mood and affect. Results - Labs 05/15/22 08:14 05/15/22 08:14 Abnormal Lab Results - Last 24 Hours (Table) 05/14/22 05/14/22 05/14/22 Range/Units 06:24 06:24 11:47 WBC 12.7 H (3.8-10.6) k/uL RBC 3.20 L (4.30-5.90) m/uL Hgb 9.8 L (13.0-17.5) gm/dL Hct 31.1 L (39.0-53.0) % MCHC (31.0-37.0) g/dL Plt Count 122 L (150-450) k/uL Neutrophils # 11.4 H (1.3-7.7) k/uL Lymphocytes # 0.9 L (1.0-4.8) k/uL APTT (22.0-30.0) sec Potassium 3.3 L (3.5-5.1) mmol/L Chloride 112 H (98-107) mmol/L Carbon Dioxide 19 L (22-30) mmol/L BUN 84 H (9-20) mg/dL Creatinine 3.05 H (0.66-1.25) mg/dL Glucose 142 H (74-99) mg/dL POC Glucose (mg/dL) 432 H (70-110) mg/dL Calcium 7.6 L (8.4-10.2) mg/dL 05/14/22 05/14/22 05/15/22 Range/Units 16:58 19:57 01:10 WBC (3.8-10.6) k/uL RBC 3.28 L (4.30-5.90) m/uL Hgb 9.4 L (13.0-17.5) gm/dL Hct 31.0 L (39.0-53.0) % MCHC 30.4 L (31.0-37.0) g/dL Plt Count 103 L (150-450) k/uL Neutrophils # 8.9 H (1.3-7.7) k/uL Lymphocytes # 0.9 L (1.0-4.8) k/uL APTT (22.0-30.0) sec Potassium (3.5-5.1) mmol/L Chloride (98-107) mmol/L Carbon Dioxide (22-30) mmol/L BUN (9-20) mg/dL Creatinine (0.66-1.25) mg/dL Glucose (74-99) mg/dL POC Glucose (mg/dL) 248 H 286 H (70-110) mg/dL Calcium (8.4-10.2) mg/dL 05/15/22 05/15/22 05/15/22 Range/Units 01:10 08:14 08:14 WBC (3.8-10.6) k/uL RBC 3.04 L (4.30-5.90) m/uL Hgb 9.5 L (13.0-17.5) gm/dL Hct 29.9 L (39.0-53.0) % MCHC (31.0-37.0) g/dL Plt Count 98 L (150-450) k/uL Neutrophils # 7.9 H (1.3-7.7) k/uL Lymphocytes # 0.7 L (1.0-4.8) k/uL APTT 51.7 H (22.0-30.0) sec Potassium 2.9 L (3.5-5.1) mmol/L Chloride 110 H (98-107) mmol/L Carbon Dioxide 21 L (22-30) mmol/L BUN 92 H (9-20) mg/dL Creatinine 3.28 H (0.66-1.25) mg/dL Glucose 149 H (74-99) mg/dL POC Glucose (mg/dL) (70-110) mg/dL Calcium 7.3 L (8.4-10.2) mg/dL Diabetes panel 05/14/22 05/15/22 Range/Units 06:24 08:14 Sodium 142 141 (137-145) mmol/L Potassium 3.3 L 2.9 L (3.5-5.1) mmol/L Chloride 112 H 110 H (98-107) mmol/L Carbon Dioxide 19 L 21 L (22-30) mmol/L BUN 84 H 92 H (9-20) mg/dL Creatinine 3.05 H 3.28 H (0.66-1.25) mg/dL Glucose 142 H 149 H (74-99) mg/dL Calcium 7.6 L 7.3 L (8.4-10.2) mg/dL Calcium panel 05/14/22 05/15/22 Range/Units 06:24 08:14 Calcium 7.6 L 7.3 L (8.4-10.2) mg/dL Pituitary panel 05/14/22 05/15/22 Range/Units 06:24 08:14 Sodium 142 141 (137-145) mmol/L Potassium 3.3 L 2.9 L (3.5-5.1) mmol/L Chloride 112 H 110 H (98-107) mmol/L Carbon Dioxide 19 L 21 L (22-30) mmol/L BUN 84 H 92 H (9-20) mg/dL Creatinine 3.05 H 3.28 H (0.66-1.25) mg/dL Glucose 142 H 149 H (74-99) mg/dL Calcium 7.6 L 7.3 L (8.4-10.2) mg/dL Adrenal panel 05/14/22 05/15/22 Range/Units 06:24 08:14 Sodium 142 141 (137-145) mmol/L Potassium 3.3 L 2.9 L (3.5-5.1) mmol/L Chloride 112 H 110 H (98-107) mmol/L Carbon Dioxide 19 L 21 L (22-30) mmol/L BUN 84 H 92 H (9-20) mg/dL Creatinine 3.05 H 3.28 H (0.66-1.25) mg/dL Glucose 142 H 149 H (74-99) mg/dL Calcium 7.6 L 7.3 L (8.4-10.2) mg/dL - Imaging US - abdomen: report reviewed US - pelvic: report reviewed Assessment and Plan Assessment: The patient is currently sitting up in the chair. He denies any flank pain, abdominal pain, nausea, or vomiting. The patient reports a history of previous kidney stones that required surgical intervention and is known to Dr. Merritt. The patient is reported to have urinary retention for which a Mcgovern catheter was inserted. The Mcgovern catheter appears to be draining well with blood tinged u rine. The patient's UA was not suggestive of infection. The patient has been afebrile, vital signs are now stable, and he is on 3 L O2. WBC 8.9, hemoglobin is stable at 9.5 was 9.6 upon admission), serum creatinine continues to trend upward and was 3.28 today. The patient's bilateral hydronephrosis is seen on ultrasound is likely to be caused by his urinary retention. Hematuria most likely caused by traumatic insertion of Mcgovern catheter. Recommend keeping Mcgovern catheter in place for several days and then repeat imaging. I examined starkly and physically the patient. I reviewed the chart. I concur with the above-mentioned consultation. Samuel Márquez M.D. (1) Acute urinary retention Current Visit: No Status: Acute Code(s): R33.8 - OTHER RETENTION OF URINE SNOMED Code(s): 935491911 Plan: - Monitor urine output - Monitor Hgb - Monitor creatinine - Add Flomax - Keep Mcgovern catheter in place for 1 week - Repeat imaging Impression and plan of care have been directed as dictated by the signing physician. Sue Chauhan nurse practitioner acting as scribe for signing physician. Thank you for this consultation. We will continue to follow with this patient. Sue Chauhan [facility]- Palliative Care/Urology [facility] [id number] Email: [email or web address]
[2022-05-15 16:48] LABS: Glucose,Whole Blood 167 mg/dL (70-110)
[2022-05-15 20:05] LABS: Glucose,Whole Blood 208 mg/dL (70-110)
[2022-05-15] MEDS: APIXABAN 2.5 MG TABLET PO SCH (20:20)
[2022-05-15] MEDS: QUEtiapine 25 MG TAB PO SCH (20:20)
--- NOTE | 2022-05-16 00:28 | P.PN ---
Subjective Progress Note Date: 05/16/22 81-year-old male came in with complaints of shortness of breath patient does have extensive history does have history of sick sinus syndrome history of coronary artery disease CABG patient has a wheezing on exam. Patient is requiring oxygen usually doesn't use oxygen at home patient has some wheezing on exam patient is found to have C. Sepsis from RSV. Patient is also on heart failure exacerbation with elevated BNP elevated JVD. Patient has chronic diastolic dysfunction. 05/12/2022 Patient is seen and evaluated in follow-up with pulmonary following a currently maintained on 2 L via nasal cannula and continues with significant wheezing. Patient was maintained on IV steroids and increased per pulmonary's patient continues to have significant wheezing on exam. Patient does not normally wear oxygen the outpatient setting and recommended to wean FiO2 as tolerated. Patient also being treated with IV Lasix for CHF with diastolic dysfunction acute exacerbation. Denies chest pain or palpitations and reports no significant improvement in shortness of breath as of yet. Patient encouraged increased activity as tolerated. Patient also having extremely elevated blood sugars most likely steroid effect and will continue sliding scale and will also start long-acting. Will change diet to consistent carb. Recommend continued monitoring of Accu-Cheks before meals and at bedtime. Will follow-up with repeat labs in the a.m. 05/13/2022 Patient is seen in follow-up today much more lethargic although arousable. Patient had an episode of atrial flutter with RVR and transferred to stepdown unit placed on IV heparin along with Cardizem. Troponin drawn up to 22 with associated chest pain and cardiology considering most likely type II myocardial infarction secondary to atrial flutter. Repeat 2-D echo is ordered and pending. Patient also continues with RSV currently on 2-3 L via nasal cannula. Patient appears dyspneic and working to breathe during exam. Patient also continuing wi th some increased confusion likely metabolic encephalopathy his kidney functions are worsening and nephrology on consult now. Patient being started on IV Lasix twice daily. Chest x-ray shows no overt failure. Concern of jump in white count appears most likely reactive secondary to IV steroids. Patient is on high-dose IV steroids with pulmonary and also cardiology following. Patient continues on oral Zithromax. Patient is also extremely high risk for aspiration recommend head of the bed elevated 45 at all times and strict aspiration precautions. 05/14/2022 Patient is seen and evaluated in follow-up today mentation appears improved and patient was given Seroquel last night. We'll continue at night. Patient being followed by pulmonary along with cardiology currently maintained on oral amiodarone along with IV heparin. Patient is currently atrial paced rhythm. Patient is maintained on oxygen at 3 L although needs frequent reorientation to continue to wear it as he takes it off frequently. Patient reports he is eating although fair and blood sugars being monitored. Patient was nothing by mouth for cardiology although has been eating now and blood sugars are rising although patient was feeling his blood sugars were low and refusing insulin. Patient is also continued on high-dose IV steroids recommend to continue with Accu-Cheks before meals and at bedtime with sliding scale and have decreased the long- acting as patient appears to be dropping blood sugars every night. Patient with significant weakness recommend physical therapy evaluation. Nephrology following as well and patient was given sodium bicarb and now on tablets as kidney functions are worsening recommending indwelling Mcgovern catheter. Patient is continued on IV Lasix for CHF. Patient is currently afebrile denies worsening shortness of breath or any chest pain today. No reports of nausea or vomiting noted. 05/15/2022 Patient is seen and evaluated follow-up currently sitting up in the chair being followed by multiple medical consultations including nephrology, cardiology, and pulmonary. Urology is consulted as patient is noted to have hematuria in the Mcgovern catheter. Most likely traumatic due to insertion of Mcgovern catheter and hemoglobin is stable above 9. Patient was also maintained on IV heparin for atrial flutter with RVR and being transitioned oral anticoagulant. Patient cont inues to be diuresed on IV Lasix with nephrology recommending to continue with follow-up labs and kidney functions continued to worsen. Potassium found to be critically low at 2.9 and will replace per protocol recommend repeat labs. Patient is currently afebrile denies chest pain or worsening shortness of breath. Discussed with family about CODE STATUS and also treatment plan along with discharge planning and recommended PT/OT evaluation for possible ECF. PHYSICAL EXAMINATION: GENERAL: The patient is alert and oriented x3. Thin built, ill-appearing, cachectic, extremely elderly-appearing HEENT: Pupils are round and equally reacting to light. EOMI. No scleral icterus. No conjunctival pallor. Normocephalic, atraumatic. No pharyngeal erythema. No thyromegaly. CARDIOVASCULAR: S1 and S2 muffled PULMONARY: Diminished breath sounds bilaterally with some minimal expiratory wheezing and crackles at the bases noted on exam ABDOMEN: Soft, nontender, nondistended, normoactive bowel sounds. No palpable organomegaly. MUSCULOSKELETAL: No joint swelling or deformity. EXTREMITIES: No cyanosis, clubbing, or pedal edema. NEUROLOGICAL: Gross neurological examination did not reveal any focal deficits. Diffusely weak SKIN: No rashes. Assessment: -Acute hypoxic respiratory failure secondary to COPD exacerbation and RSV infection -Acute renal failure on chronic kidney disease stage V acute renal failure secondary to hypovolemia, worsening and being placed on sodium bicarb tablets -Acute atrial flutter with RVR, currently rate controlled -Hematuria, most likely due to trauma from insertion of Mcgovern catheter while being maintained on IV heparin -Elevated troponin, possibly type II myocardial infarction secondary to atrial flutter -Hyperchloremic metabolic acidosis secondary to IV fluids -Hyperkalemia secondary to IV fluids, now hypokalemia -Congestive heart failure acute on chronic chronic systolic dysfunction with acute exacerbation, EF is 40-45% -History of Coronary artery disease status post CABG -benign prostatic hypertrophy -hypertension -Diabetes mellitus , type II uncontrolled with elevated blood sugars secondary to systemic steroids -Hypertension -History of ulcerative colitis presently not on any medications -Anemia of chronic disease -DVT prophylaxis: Subcutaneous heparin -No code Plan: Recommend to continue current medications and management with pulmonary following. Patient continues on high-dose IV steroids and having elevated blood sugars and have added long-acting and will continue sliding scale. Blood sugars currently better controlled will continue current regimen, diet was also changed to soft diet as patient has been and hard to know Patient with atrial flutter with RVR and cardiology following and placed on heparin drip is being transitioned oral anticoagulant along with oral amiodarone and will follow as needed Blood sugars elevated and will continue sliding scale and also adjust the dose of long-acting and recommended continue Accu-Cheks before meals and at bedtime Recommend repeat labs in the a.m. potassium was found to be 2.9 today Leukocytosis, likely reactive secondary to high-dose steroids and patient is on Zithromax, improved Patient is maintained on 2 L via nasal cannula and recommended wean FiO2 as tolerated, less dyspneic, needs encouragement keeping the oxygen on Encouraged to increase activity as tolerated and will have PT evaluate the patient, discussed with family about possible ECF Due to multiple complex medical issues, Prognosis is guarded The impression and plan of care has been dictated by Yaquelin Frances, Nurse Practitioner as directed. Dr. Chucho MD I have performed a history and examination and MDM of this patient, discussed the same with the dictator, and agree with the dictator's assessment and plan as written ,documented as a scribe. Based on total visit time, I have performed more than 50% of the visit. Objective - Vital Signs Vital signs: Vital Signs Temp 98.0 F 05/15/22 08:03 Pulse 65 05/15/22 08:03 Resp 21 05/15/22 08:28 BP 134/63 05/15/22 08:03 Pulse Ox 90 L 05/15/22 08:03 FiO2 Intake & Output 05/14/22 05/15/22 05/15/22 18:59 06:59 18:59 Intake Total 830 Output Total 900 1800 450 Balance -70 -1800 -450 Intake: Intake, IV Titration 230 Amount Heparin Sod,Pork in 0.45% 230 NaCl 25,000 unit In 0.45 % NaCl 1 250ml.bag @ 11. 603 UNITS/KG/HR 10 mls/hr IV .Q24H MELISA Rx#: [id number] Oral 600 Output: Urine 900 1800 450 Other: Voiding Method Indwelling Catheter Indwelling Catheter Indwelling Catheter # Bowel Movements 0 - Labs CBC & Chem 7: 05/15/22 08:14 05/15/22 08:14 Labs: Abnormal Lab Results - Last 24 Hours (Table) 05/14/22 05/14/22 05/14/22 Range/Units 06:24 06:24 11:47 WBC 12.7 H (3.8-10.6) k/uL RBC 3.20 L (4.30-5.90) m/uL Hgb 9.8 L (13.0-17.5) gm/dL Hct 31.1 L (39.0-53.0) % MCHC (31.0-37.0) g/dL Plt Count 122 L (150-450) k/uL Neutrophils # 11.4 H (1.3-7.7) k/uL Lymphocytes # 0.9 L (1.0-4.8) k/uL APTT (22.0-30.0) sec Potassium 3.3 L (3.5-5.1) mmol/L Chloride 112 H (98-107) mmol/L Carbon Dioxide 19 L (22-30) mmol/L BUN 84 H (9-20) mg/dL Creatinine 3.05 H (0.66-1.25) mg/dL Glucose 142 H (74-99) mg/dL POC Glucose (mg/dL) 432 H (70-110) mg/dL Calcium 7.6 L (8.4-10.2) mg/dL 05/14/22 05/14/22 05/15/22 Range/Units 16:58 19:57 01:10 WBC (3.8-10.6) k/uL RBC 3.28 L (4.30-5.90) m/uL Hgb 9.4 L (13.0-17.5) gm/dL Hct 31.0 L (39.0-53.0) % MCHC 30.4 L (31.0-37.0) g/dL Plt Count 103 L (150-450) k/uL Neutrophils # 8.9 H (1.3-7.7) k/uL Lymphocytes # 0.9 L (1.0-4.8) k/uL APTT (22.0-30.0) sec Potassium (3.5-5.1) mmol/L Chloride (98-107) mmol/L Carbon Dioxide (22-30) mmol/L BUN (9-20) mg/dL Creatinine (0.66-1.25) mg/dL Glucose (74-99) mg/dL POC Glucose (mg/dL) 248 H 286 H (70-110) mg/dL Calcium (8.4-10.2) mg/dL 05/15/22 05/15/22 05/15/22 Range/Units 01:10 08:14 08:14 WBC (3.8-10.6) k/uL RBC 3.04 L (4.30-5.90) m/uL Hgb 9.5 L (13.0-17.5) gm/dL Hct 29.9 L (39.0-53.0) % MCHC (31.0-37.0) g/dL Plt Count 98 L (150-450) k/uL Neutrophils # 7.9 H (1.3-7.7) k/uL Lymphocytes # 0.7 L (1.0-4.8) k/uL APTT 51.7 H (22.0-30.0) sec Potassium 2.9 L (3.5-5.1) mmol/L Chloride 110 H (98-107) mmol/L Carbon Dioxide 21 L (22-30) mmol/L BUN 92 H (9-20) mg/dL Creatinine 3.28 H (0.66-1.25) mg/dL Glucose 149 H (74-99) mg/dL POC Glucose (mg/dL) (70-110) mg/dL Calcium 7.3 L (8.4-10.2) mg/dL
[2022-05-16 06:07] LABS: Glucose,Whole Blood 212 mg/dL (70-110)
[2022-05-16] MEDS: methylPREDNISolone SOD SUCCI 125 MG/2 ML VIAL IV SCH ×4 (06:15→23:50)
[2022-05-16] MEDS: INSULIN ASPART (NovoLOG) 100 UNIT/ML VIAL SQ SCH ×4 (06:16→21:12)
[2022-05-16] MEDS: LEVOTHYROXINE 100 MCG TAB PO SCH (06:16)
[2022-05-16] MEDS: IPRATROPIUM-ALBUTEROL 3 ML NEB INHALATION SCH ×4 (07:43→19:34)
[2022-05-16] MEDS: SYMBICORT 160-4.5 MCG INHALER INHALATION SCH ×2 (07:43→19:34)
[2022-05-16 08:19] LABS: Calcium 7.2 mg/dL (8.4-10.2); Potassium 3.2 mmol/L (3.5-5.1)
[2022-05-16] MEDS: INSULIN DETEMIR (LEVEMIR) 100 UNIT/ML SYR SQ SCH (08:54)
[2022-05-16] MEDS: APIXABAN 2.5 MG TABLET PO SCH ×2 (08:54→21:12)
[2022-05-16] MEDS: METOPROLOL SUCCINATE (ER) 50 MG TAB.ER.24H PO SCH (08:54)
[2022-05-16] MEDS: TAMSULOSIN 0.4 MG CAP.ER.24H PO SCH (08:55)
[2022-05-16] MEDS: AMIODARONE 200 MG TAB PO SCH ×2 (08:55→21:12)
[2022-05-16] MEDS: FAMOTIDINE 20 MG TAB PO SCH (08:55)
[2022-05-16] MEDS: FUROSEMIDE 10 MG/ML 4 ML VIAL IV SCH ×2 (08:55→21:12)
[2022-05-16] MEDS: CLOPIDOGREL 75 MG TAB PO SCH (08:55)
[2022-05-16] MEDS: SODIUM BICARBONATE TAB 650 MG TAB PO SCH ×2 (08:55→21:12)
--- NOTE | 2022-05-16 10:57 | P.PN ---
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 Is coming in with increasing dyspnea, chest tightness and wheezing and the patient in emergency department was diagnosed having a positive RSV infection by PCR. Influenza was negative. Covid 19 testing was negative. Chest x-ray was consistent with some mild subsegmental atelectatic changes in the right midlung, no other acute abnormalities noted. Sternal wires were present. He was started on bronchodilators and steroids. He was started also on oxygen therapy and the patient is currently on 2 L O2 nasal cannula. He is still struggling with his breathing is short of breath. His comorbid conditions include coronary artery disease with previous bypass surgery, hypertension, ulcerative colitis currently inactive and stable, chronic diastolic heart failure and COPD. The patient also has history of lymphoma treated with systemic chemotherapy seems to be in remission since 2011. I am evaluating this patient today on 05/12/2022. The patient appears fairly comfortable on 2 L nasal cannula in bed. The patient has an audible expiratory wheeze on auscultation. His IV Solu-Medrol was weaned down, to obtain better glucose control by primary. His most recent CBC count on 05/11/2022 revealed a WBC of 8, hemoglobin 9.6, hematocrit 29.9, platelets 110. Today's BMP from 05/12/2022 shows a sodium 141, potassium of 4.7, chloride of 111, serum CO2 of 16.9, V1 53, creatinine of 2.3, glucose of 214.most recent chest x-ray on 05/11/2022 revealed mild subsegmental atelectasis in the right, mid lung which was new compared to old exam. He is managed on DuoNeb inhalation and IV Solu- Medrol. He is on empiric antibiotic coverage with Zithromax. The patient is seen today 05/13/2022 in follow-up on the selective care unit. He is currently maintaining O2 saturations in the 90s on 2 L/m per nasal cannula. Follow-up chest x-ray reveals mild pulmonary venous congestion without overt failure. White count 18.6. Hemoglobin 9.1. Platelets 140. Sodium 144. Potassium 4.2. Bicarb 17. BUN 68. Creatinine 2.72. Troponins 22.7. ProBNP 26,800. Glucose 166. Ultrasound of the kidneys/bladder revealed moderate hydronephrosis bilaterally. Last evening he developed atrial flutter with a rapid ventricular response and significant chest discomfort with noted ST depression. Rapid response team was called and he was transferred to the [facility] care unit. He's been initiated on amiodarone drip. He is on Lasix 40 mg IV every 12 hours. Remains on a heparin drip per weight base protocol. He is continued on DuoNeb inhalations, Symbicort, IV solu Medrol. Remains on empiric antibiotics in the form of azithromycin. The patient is seen today 05/14/2022 in follow-up on the selective care unit. He was having issues with altered mental status but is currently awake and alert. Currently maintaining O2 saturations in the 90s on 2 L/m per nasal cannula. Afebrile. Hemodynamically stable. Echocardiogram revealed decreased LV systolic function with ejection fraction of 40-45%. Mild to moderate mitral regurgitation. white count 12.7. Hemoglobin 9.8. Platelet count 122. Sodium 142. Potassium 3.3. Chloride 112. Bicarb 19. BUN 84. Creatinine 3.05. Glucose 142. Continued on DuoNeb inhalations, Symbicort, IV Solu-Medrol. Currently on sodium bicarb tablets. He did have issues with atrial fibrillation with rapid ventricular response. He was loaded with amiodarone. Currently on a Cardizem drip at 5 mg an hour. Remains on heparin drip per weight-based protocol. Lasix 40 mg IV twice daily. Remains in a negative balance. The patient is seen today 05/16/2022 in follow-up on the selective care unit. He is more awake and alert today. Sitting up in bed. Oriented 3. No worsening shortness of breath, cough or congestion. He is maintaining O2 saturations in the 90s on 3 L/m per nasal cannula. Sodium 142. Potassium 3.2. Chloride 110. Bicarb 19. BUN 106. Creatinine 3.11. Glucose 242. He remains on Symbicort, DuoNeb inhalations, IV Solu-Medrol. Anticoagulated with Eliquis. He is continued on Lasix 40 mg IV twice a day. Currently in a -1.9 L balance. Amiodarone per cardiology. Objective - Vital Signs Vital signs: Vital Signs Temp 97.8 F 05/16/22 08:00 Pulse 63 05/16/22 08:00 Resp 16 05/16/22 08:00 BP 139/65 05/16/22 08:00 Pulse Ox 92 L 05/16/22 08:00 FiO2 Intake & Output 05/15/22 05/16/22 05/16/22 18:59 06:59 18:59 Intake Total 354 Output Total 1100 1200 Balance -746 -1200 Intake: Oral 354 Output: Urine 1100 1200 Other: Voiding Method Indwelling Catheter Indwelling Catheter Indwelling Catheter - Exam GENERAL EXAM: Alert, oriented 81-year-old male patient, sitting up in bed, on 3 L nasal cannula, comfortable in no apparent distress. HEAD: Normocephalic. EYES: Normal reaction of pupils, equal size. NOSE: Clear with pink turbinates. THROAT: No erythema or exudates. NECK: No masses, no JVD. CHEST: No chest wall deformity. LUNGS: Equal air entry with faint crackles in the posterior bases. CVS: S1 and S2 normal with no audible murmur, regular rhythm. ABDOMEN: No hepatosplenomegaly, normal bowel sounds, no guarding or rigidity. SPINE: No scoliosis or deformity SKIN: No rashes CENTRAL NERVOUS SYSTEM: No focal deficits, tone is normal in all 4 extremities. EXTREMITIES: There is no peripheral edema. No clubbing, no cyanosis. Peripheral pulses are intact. - Labs CBC & Chem 7: 05/15/22 08:14 05/16/22 07:38 Labs: Abnormal Lab Results - Last 24 Hours (Table) 05/15/22 05/15/22 05/15/22 Range/Units 11:22 16:44 20:04 Potassium (3.5-5.1) mmol/L Chloride (98-107) mmol/L Carbon Dioxide (22-30) mmol/L BUN (9-20) mg/dL Creatinine (0.66-1.25) mg/dL Glucose (74-99) mg/dL POC Glucose (mg/dL) 291 H 167 H 208 H (70-110) mg/dL Calcium (8.4-10.2) mg/dL 05/16/22 05/16/22 Range/Units 06:06 07:38 Potassium 3.2 L (3.5-5.1) mmol/L Chloride 110 H (98-107) mmol/L Carbon Dioxide 19 L (22-30) mmol/L BUN 106 H* (9-20) mg/dL Creatinine 3.11 H (0.66-1.25) mg/dL Glucose 242 H (74-99) mg/dL POC Glucose (mg/dL) 212 H (70-110) mg/dL Calcium 7.2 L (8.4-10.2) mg/dL Assessment and Plan Assessment: Acute RSV infection Acute exacerbation of COPD with secondary shortness of breath Acute exacerbation of systolic congestive heart failure with estimated ejection fraction of 40-45% Mild to moderate mitral regurgitation Acute hypoxic respiratory failure secondary to above Acute atrial flutter with rapid ventricular response Acute non-ST segment elevation myocardial infarction Bilateral hydronephrosis Coronary artery disease with previous bypass surgery. Sick sinus syndrome with a pacemaker History of congestion heart failure, systolic versus diastolic Hypertension Hyperlipidemia BPH Remote history of lymphoma, completed systemic chemotherapy and the patient has been in remission Diabetes mellitus Chronic stage III kidney disease History of nephrolithiasis Previous history of the left lower extremities History of ulcerative colitis History of chronic anemia Plan: The patient was seen and evaluated Labs and medications reviewed Currently stable and on 3 L nasal cannula Continued on bronchodilators, IV Solu-Medrol Anticoagulated with Eliquis Continued on IV diuretics Remains in a negative balance Prognosis is guarded We will continue to follow I have personally seen and examined the patient, performed the documentation and the assessment and plan as written. Number of minutes spent on the visit: 10.
[2022-05-16 11:50] LABS: Glucose,Whole Blood 225 mg/dL (70-110)
--- NOTE | 2022-05-16 15:07 | P.PN ---
Subjective Progress Note Date: 05/16/22 81-year-old male came in with complaints of shortness of breath patient does have extensive history does have history of sick sinus syndrome history of coronary artery disease CABG patient has a wheezing on exam. Patient is requiring oxygen usually doesn't use oxygen at home patient has some wheezing on exam patient is found to have C. Sepsis from RSV. Patient is also on heart failure exacerbation with elevated BNP elevated JVD. Patient has chronic diastolic dysfunction. 05/12/2022 Patient is seen and evaluated in follow-up with pulmonary following a currently maintained on 2 L via nasal cannula and continues with significant wheezing. Patient was maintained on IV steroids and increased per pulmonary's patient continues to have significant wheezing on exam. Patient does not normally wear oxygen the outpatient setting and recommended to wean FiO2 as tolerated. Patient also being treated with IV Lasix for CHF with diastolic dysfunction acute exacerbation. Denies chest pain or palpitations and reports no significant improvement in shortness of breath as of yet. Patient encouraged increased activity as tolerated. Patient also having extremely elevated blood sugars most likely steroid effect and will continue sliding scale and will also start long-acting. Will change diet to consistent carb. Recommend continued monitoring of Accu-Cheks before meals and at bedtime. Will follow-up with repeat labs in the a.m. 05/13/2022 Patient is seen in follow-up today much more lethargic although arousable. Patient had an episode of atrial flutter with RVR and transferred to stepdown unit placed on IV heparin along with Cardizem. Troponin drawn up to 22 with associated chest pain and cardiology considering most likely type II myocardial infarction secondary to atrial flutter. Repeat 2-D echo is ordered and pending. Patient also continues with RSV currently on 2-3 L via nasal cannula. Patient appears dyspneic and working to breathe during exam. Patient also continuing wi th some increased confusion likely metabolic encephalopathy his kidney functions are worsening and nephrology on consult now. Patient being started on IV Lasix twice daily. Chest x-ray shows no overt failure. Concern of jump in white count appears most likely reactive secondary to IV steroids. Patient is on high-dose IV steroids with pulmonary and also cardiology following. Patient continues on oral Zithromax. Patient is also extremely high risk for aspiration recommend head of the bed elevated 45 at all times and strict aspiration precautions. 05/14/2022 Patient is seen and evaluated in follow-up today mentation appears improved and patient was given Seroquel last night. We'll continue at night. Patient being followed by pulmonary along with cardiology currently maintained on oral amiodarone along with IV heparin. Patient is currently atrial paced rhythm. Patient is maintained on oxygen at 3 L although needs frequent reorientation to continue to wear it as he takes it off frequently. Patient reports he is eating although fair and blood sugars being monitored. Patient was nothing by mouth for cardiology although has been eating now and blood sugars are rising although patient was feeling his blood sugars were low and refusing insulin. Patient is also continued on high-dose IV steroids recommend to continue with Accu-Cheks before meals and at bedtime with sliding scale and have decreased the long- acting as patient appears to be dropping blood sugars every night. Patient with significant weakness recommend physical therapy evaluation. Nephrology following as well and patient was given sodium bicarb and now on tablets as kidney functions are worsening recommending indwelling Mcgovern catheter. Patient is continued on IV Lasix for CHF. Patient is currently afebrile denies worsening shortness of breath or any chest pain today. No reports of nausea or vomiting noted. 05/15/2022 Patient is seen and evaluated follow-up currently sitting up in the chair being followed by multiple medical consultations including nephrology, cardiology, and pulmonary. Urology is consulted as patient is noted to have hematuria in the Mcgovern catheter. Most likely traumatic due to insertion of Mcgovern catheter and hemoglobin is stable above 9. Patient was also maintained on IV heparin for atrial flutter with RVR and being transitioned oral anticoagulant. Patient cont inues to be diuresed on IV Lasix with nephrology recommending to continue with follow-up labs and kidney functions continued to worsen. Potassium found to be critically low at 2.9 and will replace per protocol recommend repeat labs. Patient is currently afebrile denies chest pain or worsening shortness of breath. Discussed with family about CODE STATUS and also treatment plan along with discharge planning and recommended PT/OT evaluation for possible ECF. 05/16/2022 Patient is seen and evaluated in follow-up with nephrology, pulmonary, cardiology following currently sitting up in the chair more awake and alert today. Patient is maintained on 3 L of oxygen via nasal cannula along with D uoNeb treatments and IV steroids. Recommend to monitor blood sugars closely and will adjust the medications as patient is eating more and steroids are being titrated down. Patient has been on IV Lasix twice daily along with oral amiodarone currently rate controlled. Cardiology following as needed. Recommend telemetry monitoring. Patient has been also transitioned off IV heparin on to Eliquis . Nephrology following as well for worsening kidney functions with an elevated BUN of 106, creatinine slightly improved at 3.11 and potassium found to be 3.2 after replacement and will replace per protocol. recommend daily supplementation of potassium which will be added.. PHYSICAL EXAMINATION: GENERAL: The patient is alert and oriented x3. Thin built, ill-appearing, cachectic, extremely elderly-appearing HEENT: Pupils are round and equally reacting to light. EOMI. No scleral icterus. No conjunctival pallor. Normocephalic, atraumatic. No pharyngeal erythema. No thyromegaly. CARDIOVASCULAR: S1 and S2 muffled PULMONARY: Diminished breath sounds bilaterally with some minimal expiratory wheezing and crackles at the bases noted on exam ABDOMEN: Soft, nontender, nondistended, normoactive bowel sounds. No palpable organomegaly. MUSCULOSKELETAL: No joint swelling or deformity. EXTREMITIES: No cyanosis, clubbing, or pedal edema. NEUROLOGICAL: Gross neurological examination did not reveal any focal deficits. Diffusely weak SKIN: No rashes. Assessment: -Acute hypoxic respiratory failure secondary to COPD exacerbation and RSV infection -Acute renal failure on chronic kidney disease stage V acute renal failure secondary to hypovolemia, worsening and being placed on sodium bicarb tablets -Acute atrial flutter with RVR, currently rate controlled -Hematuria, most likely due to trauma from insertion of Mcgovern catheter while being maintained on IV heparin -Elevated troponin, possibly type II myocardial infarction secondary to atrial flutter -Hyperchloremic metabolic acidosis secondary to IV fluids, improved -Hyperkalemia secondary to IV fluids, now hypokalemia, being replaced -Congestive heart failure acute on chronic chronic systolic dysfunction with acute exacerbation, EF is 40-45% -History of Coronary artery disease status post CABG -benign prostatic hypertrophy -hypertension -Diabetes mellitus , type II uncontrolled with elevated blood sugars secondary to systemic steroids -Hypertension -History of ulcerative colitis presently not on any medications -Anemia of chronic disease -DVT prophylaxis: on eliquis -No code Plan: Recommend to continue current medications and management with pulmonary following. Patient continues on high-dose IV steroids recommend Accu-Cheks before meals and at bedtime and will continue with current regimen. Encouraged oral intake and recommend dysphagia chopped diet as patient has missing teeth and difficulty chewing. Potassium replaced per protocol and found to be 3.2 and will replace and also add daily supplementation as patient continues on IV Lasix with nephrology following Patient with atrial flutter with RVR and cardiology following and placed on eliquis along with oral amiodarone and will follow as needed Recommend repeat labs in the a.m. potassium was found to be 3.2 today Leukocytosis, likely reactive secondary to high-dose steroids and patient has completed zithromax, improved Patient is maintained on 2-3 L via nasal cannula and recommended wean FiO2 as tolerated, less dyspneic, needs encouragement keeping the oxygen on Encouraged to increase activity as tolerated and will have PT follow the patie nt, discussed with family about possible ECF and working on possible [facility] Due to multiple complex medical issues, Prognosis is guarded The impression and plan of care has been dictated by Yaquelin Frances, Nurse Practitioner as directed. Dr. Jaime MD I have performed a history and examination and MDM of this patient, discussed the same with the dictator, and agree with the dictator's assessment and plan as written ,documented as a scribe. Based on total visit time, I have performed more than 50% of the visit. Objective - Vital Signs Vital signs: Vital Signs Temp 97.8 F 05/16/22 08:00 Pulse 70 05/16/22 12:25 Resp 16 05/16/22 08:00 BP 139/65 05/16/22 08:00 Pulse Ox 92 L 05/16/22 08:00 FiO2 Intake & Output 05/15/22 05/16/22 05/16/22 18:59 06:59 18:59 Intake Total 354 Output Total 1100 1200 Balance -746 -1200 Intake: Oral 354 Output: Urine 1100 1200 Other: Voiding Method Indwelling Catheter Indwelling Catheter Indwelling Catheter - Labs CBC & Chem 7: 05/15/22 08:14 05/16/22 07:38 Labs: Abnormal Lab Results - Last 24 Hours (Table) 05/15/22 05/15/22 05/16/22 Range/Units 16:44 20:04 06:06 Potassium (3.5-5.1) mmol/L Chloride (98-107) mmol/L Carbon Dioxide (22-30) mmol/L BUN (9-20) mg/dL Creatinine (0.66-1.25) mg/dL Glucose (74-99) mg/dL POC Glucose (mg/dL) 167 H 208 H 212 H (70-110) mg/dL Calcium (8.4-10.2) mg/dL 05/16/22 05/16/22 Range/Units 07:38 11:40 Potassium 3.2 L (3.5-5.1) mmol/L Chloride 110 H (98-107) mmol/L Carbon Dioxide 19 L (22-30) mmol/L BUN 106 H* (9-20) mg/dL Creatinine 3.11 H (0.66-1.25) mg/dL Glucose 242 H (74-99) mg/dL POC Glucose (mg/dL) 225 H (70-110) mg/dL Calcium 7.2 L (8.4-10.2) mg/dL
--- NOTE | 2022-05-16 15:48 | P.PN ---
Subjective Progress Note Date: 05/16/22 Follow-up for acute kidney injury. Urine output of 2.3 L in the last 24 hours. Urine appears pinkish. Objective - Vital Signs Vital signs: Vital Signs Temp 97.8 F 05/16/22 08:00 Pulse 60 05/16/22 14:00 Resp 16 05/16/22 14:00 BP 139/65 05/16/22 08:00 Pulse Ox 92 L 05/16/22 12:00 FiO2 Intake & Output 05/15/22 05/16/22 05/16/22 18:59 06:59 18:59 Intake Total 354 100 Output Total 1100 1200 Balance -746 -1200 100 Intake: Oral 354 100 Output: Urine 1100 1200 Other: Voiding Method Indwelling Catheter Indwelling Catheter Indwelling Catheter - Exam Acute distress S1-S2 heard Decreased breath sounds Edema - Labs CBC & Chem 7: 05/15/22 08:14 05/16/22 07:38 Labs: Abnormal Lab Results - Last 24 Hours (Table) 05/15/22 05/15/22 05/16/22 Range/Units 16:44 20:04 06:06 Potassium (3.5-5.1) mmol/L Chloride (98-107) mmol/L Carbon Dioxide (22-30) mmol/L BUN (9-20) mg/dL Creatinine (0.66-1.25) mg/dL Glucose (74-99) mg/dL POC Glucose (mg/dL) 167 H 208 H 212 H (70-110) mg/dL Calcium (8.4-10.2) mg/dL 05/16/22 05/16/22 Range/Units 07:38 11:40 Potassium 3.2 L (3.5-5.1) mmol/L Chloride 110 H (98-107) mmol/L Carbon Dioxide 19 L (22-30) mmol/L BUN 106 H* (9-20) mg/dL Creatinine 3.11 H (0.66-1.25) mg/dL Glucose 242 H (74-99) mg/dL POC Glucose (mg/dL) 225 H (70-110) mg/dL Calcium 7.2 L (8.4-10.2) mg/dL Assessment and Plan Assessment: #1 acute kidney injury multifactorial -Obstructive uropathy with bilateral hydronephrosis -Urinalysis syndrome with low EF #2 CHF systolic dysfunction EF 40% #3 kidney disease stage III B secondary to nephrosclerosis with a baseline creatinine around 2.0 MG per DL. #4 bilateral hydronephrosis #6 hypertension with chronic kidney disease Plan: #1 creatinine stable with good urine output. Appreciate urology input. #2 continue with Lasix #3 daily renal labs #4 elevated BUNs and out of proportion at 2 creatinine secondary to steroids #5 no acute indication for renal replacement therapy
[2022-05-16 16:35] LABS: Glucose,Whole Blood 288 mg/dL (70-110)
[2022-05-16 20:22] LABS: Glucose,Whole Blood 349 mg/dL (70-110)
[2022-05-16] MEDS: QUEtiapine 25 MG TAB PO SCH (21:12)
[2022-05-17] MEDS: ALBUTEROL NEBULIZED 2.5 MG/3 ML INHALATION PRN (04:38)
[2022-05-17 06:08] LABS: Glucose,Whole Blood 315 mg/dL (70-110)
[2022-05-17] MEDS: INSULIN ASPART (NovoLOG) 100 UNIT/ML VIAL SQ SCH ×4 (06:28→20:23)
[2022-05-17] MEDS: LEVOTHYROXINE 100 MCG TAB PO SCH (06:28)
[2022-05-17] MEDS: methylPREDNISolone SOD SUCCI 125 MG/2 ML VIAL IV SCH ×4 (06:28→23:21)
[2022-05-17] MEDS: IPRATROPIUM-ALBUTEROL 3 ML NEB INHALATION SCH ×4 (07:11→19:13)
[2022-05-17] MEDS: SYMBICORT 160-4.5 MCG INHALER INHALATION SCH ×2 (07:12→19:13)
[2022-05-17 08:08] LABS: Basophils % (A) 0 %; Eosinophils % (A) 0 %; HCT 29.3 % (39.0-53.0); HGB 9.5 gm/dL (13.0-17.5); Hypochromasia Slight; Lymphocytes # (A) 0.8 k/uL (1.0-4.8); Lymphocytes % (A) 9 %; MCH 31.2 pg (25.0-35.0); MCHC 32.5 g/dL (31.0-37.0); MCV 95.9 fL (80.0-100.0); Mean Platelet Volume 8.9; Monocytes # (A) 0.2 k/uL (0-1.0); Monocytes % (A) 2 %; Neutrophils # (A) 7.5 k/uL (1.3-7.7); Neutrophils % (A) 87 %; RBC 3.05 m/uL (4.30-5.90); RDW 13.2 % (11.5-15.5); WBC 8.7 k/uL (3.8-10.6)
[2022-05-17 08:15] LABS: Platelet Count 88 k/uL (150-450)
[2022-05-17 08:40] LABS: Potassium 2.9 mmol/L (3.5-5.1)
[2022-05-17] MEDS: POTASSIUM CHLORIDE ER 20 MEQ TAB.ER PO SCH (08:57)
[2022-05-17] MEDS: TAMSULOSIN 0.4 MG CAP.ER.24H PO SCH (08:57)
[2022-05-17] MEDS: APIXABAN 2.5 MG TABLET PO SCH ×2 (08:57→20:23)
[2022-05-17] MEDS: METOPROLOL SUCCINATE (ER) 50 MG TAB.ER.24H PO SCH (08:57)
[2022-05-17] MEDS: FUROSEMIDE 10 MG/ML 4 ML VIAL IV SCH (08:57)
[2022-05-17] MEDS: INSULIN DETEMIR (LEVEMIR) 100 UNIT/ML SYR SQ SCH (08:57)
[2022-05-17] MEDS: AMIODARONE 200 MG TAB PO SCH ×2 (08:58→20:23)
[2022-05-17] MEDS: SODIUM BICARBONATE TAB 650 MG TAB PO SCH ×2 (08:58→20:23)
[2022-05-17] MEDS: CLOPIDOGREL 75 MG TAB PO SCH (08:58)
[2022-05-17] MEDS: FAMOTIDINE 20 MG TAB PO SCH (08:58)
[2022-05-17 12:00] LABS: Glucose,Whole Blood 337 mg/dL (70-110)
--- NOTE | 2022-05-17 13:17 | P.PN ---
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 Is coming in with increasing dyspnea, chest tightness and wheezing and the patient in emergency department was diagnosed having a positive RSV infection by PCR. Influenza was negative. Covid 19 testing was negative. Chest x-ray was consistent with some mild subsegmental atelectatic changes in the right midlung, no other acute abnormalities noted. Sternal wires were present. He was started on bronchodilators and steroids. He was started also on oxygen therapy and the patient is currently on 2 L O2 nasal cannula. He is still struggling with his breathing is short of breath. His comorbid conditions include coronary artery disease with previous bypass surgery, hypertension, ulcerative colitis currently inactive and stable, chronic diastolic heart failure and COPD. The patient also has history of lymphoma treated with systemic chemotherapy seems to be in remission since 2011. I am evaluating this patient today on 05/12/2022. The patient appears fairly comfortable on 2 L nasal cannula in bed. The patient has an audible expiratory wheeze on auscultation. His IV Solu-Medrol was weaned down, to obtain better glucose control by primary. His most recent CBC count on 05/11/2022 revealed a WBC of 8, hemoglobin 9.6, hematocrit 29.9, platelets 110. Today's BMP from 05/12/2022 shows a sodium 141, potassium of 4.7, chloride of 111, serum CO2 of 16.9, V1 53, creatinine of 2.3, glucose of 214.most recent chest x-ray on 05/11/2022 revealed mild subsegmental atelectasis in the right, mid lung which was new compared to old exam. He is managed on DuoNeb inhalation and IV Solu- Medrol. He is on empiric antibiotic coverage with Zithromax. The patient is seen today 05/13/2022 in follow-up on the selective care unit. He is currently maintaining O2 saturations in the 90s on 2 L/m per nasal cannula. Follow-up chest x-ray reveals mild pulmonary venous congestion without overt failure. White count 18.6. Hemoglobin 9.1. Platelets 140. Sodium 144. Potassium 4.2. Bicarb 17. BUN 68. Creatinine 2.72. Troponins 22.7. ProBNP 26,800. Glucose 166. Ultrasound of the kidneys/bladder revealed moderate hydronephrosis bilaterally. Last evening he developed atrial flutter with a rapid ventricular response and significant chest discomfort with noted ST depression. Rapid response team was called and he was transferred to the selective care unit. He's been initiated on amiodarone drip. He is on Lasix 40 mg IV every 12 hours. Remains on a heparin drip per weight base protocol. He is continued on DuoNeb inhalations, Symbicort, IV solu Medrol. Remains on empiric antibiotics in the form of azithromycin. The patient is seen today 05/14/2022 in follow-up on the selective care unit. He was having issues with altered mental status but is currently awake and alert. Currently maintaining O2 saturations in the 90s on 2 L/m per nasal cannula. Afebrile. Hemodynamically stable. Echocardiogram revealed decreased LV systolic function with ejection fraction of 40-45%. Mild to moderate mitral regurgitation. white count 12.7. Hemoglobin 9.8. Platelet count 122. Sodium 142. Potassium 3.3. Chloride 112. Bicarb 19. BUN 84. Creatinine 3.05. Glucose 142. Continued on DuoNeb inhalations, Symbicort, IV Solu-Medrol. Currently on sodium bicarb tablets. He did have issues with atrial fibrillation with rapid ventricular response. He was loaded with amiodarone. Currently on a Cardizem drip at 5 mg an hour. Remains on heparin drip per weight-based protocol. Lasix 40 mg IV twice daily. Remains in a negative balance. reevaluated today on 05/15/22, patient continues to be marginal, continues to have intermittent episodes of cough and wheezing. Not quite ready for discharge planning. Remains on bronchodilators, remains on steroids, remains on Lasix. And he is also on heparin.WBC count is 8.9 hemoglobin 9.5, potassium is low at 2.9 BUN is elevated at 92 creatinine 3.28., renal profile has been gradually getting worse. May have to consider cutting down on his diuretics.his last chest x-ray was 2 days ago, I plan to repeat his chest x-ray in a.m.last chest x-ray showed mild pulmonary venous congestion, no evidence of overt failure. Patient was reevaluated today on 05/17/22, continues to haveintermittent wheez ing and cough, patient is more awake and alert today, maintained on 3 L nasal cannula, O2 saturations 90%. Being followed by many consultants including nephrology and cardiology. Pulmonary-khan, we will consider cleared the patient to be discharged home if cleared by other consultants. Objective - Vital Signs Vital signs: Vital Signs Temp 97.4 F L 05/17/22 12:00 Pulse 68 05/17/22 12:00 Resp 16 05/17/22 12:00 BP 139/64 05/17/22 12:00 Pulse Ox 93 L 05/17/22 12:00 FiO2 Intake & Output 05/16/22 05/17/22 05/17/22 18:59 06:59 18:59 Intake Total 100 720 Output Total 1100 Balance 100 -1100 720 Intake: Oral 100 720 Output: Urine 1100 Other: Voiding Method Indwelling Catheter Indwelling Catheter Indwelling Catheter # Bowel Movements 1 - Exam GENERAL EXAM: Alert, pleasant 81-year-old male patient, on 4 L nasal cannula, comfortable in no apparent distress. HEAD: Normocephalic. EYES: Normal reaction of pupils, equal size. NOSE: Clear with pink turbinates. THROAT: No erythema or exudates. NECK: No masses, no JVD. CHEST: No chest wall deformity. LUNGS: crackles and rhonchi persist bilaterally. CVS: S1 and S2 normal with no audible murmur, regular rhythm. ABDOMEN: No hepatosplenomegaly, normal bowel sounds, no guarding or rigidity. SPINE: No scoliosis or deformity SKIN: No rashes CENTRAL NERVOUS SYSTEM: No focal deficits, tone is normal in all 4 extremities. EXTREMITIES: There is no peripheral edema. No clubbing, no cyanosis. Peripheral pulses are intact. - Labs CBC & Chem 7: 05/17/22 07:36 05/17/22 07:36 Labs: Abnormal Lab Results - Last 24 Hours (Table) 05/16/22 05/16/22 05/17/22 Range/Units 16:32 20:20 06:06 RBC (4.30-5.90) m/uL Hgb (13.0-17.5) gm/dL Hct (39.0-53.0) % Plt Count (150-450) k/uL Lymphocytes # (1.0-4.8) k/uL Potassium (3.5-5.1) mmol/L Carbon Dioxide (22-30) mmol/L BUN (9-20) mg/dL Creatinine (0.66-1.25) mg/dL Glucose (74-99) mg/dL POC Glucose (mg/dL) 288 H 349 H 315 H (70-110) mg/dL Calcium (8.4-10.2) mg/dL 05/17/22 05/17/22 05/17/22 Range/Units 07:36 07:36 11:58 RBC 3.05 L (4.30-5.90) m/uL Hgb 9.5 L (13.0-17.5) gm/dL Hct 29.3 L (39.0-53.0) % Plt Count 88 L (150-450) k/uL Lymphocytes # 0.8 L (1.0-4.8) k/uL Potassium 2.9 L (3.5-5.1) mmol/L Carbon Dioxide 21 L (22-30) mmol/L BUN 113 H* (9-20) mg/dL Creatinine 3.08 H (0.66-1.25) mg/dL Glucose 275 H (74-99) mg/dL POC Glucose (mg/dL) 337 H (70-110) mg/dL Calcium 7.0 L (8.4-10.2) mg/dL Assessment and Plan Assessment: Acute RSV infection. Acute exacerbation of COPD with secondary shortness of breath Acute hypoxic respiratory failure , multifactorial as noted above Acute atrial flutter with rapid ventricular response Acute non-ST segment elevation myocardial infarction Bilateral hydronephrosis Coronary artery disease with previous bypass surgery. Sick sinus syndrome with a pacemaker History of congestion heart failure, systolic versus diastolic Hypertension Hyperlipidemia BPH Remote history of lymphoma, completed systemic chemotherapy and the patient has been in remission Diabetes mellitus Chronic stage III kidney disease History of nephrolithiasis Previous history of the left lower extremities History of ulcerative colitis History of chronic anemia Plan Currently stable and on 3 L nasal cannula Continued on bronchodilators cardiology is addressing his atrial flutter. And his elevated troponin. Continued on IV diuretics Prognosis is guarded we'll clear the patient to be discharged home if cleared by other consultants. Patient will likely need to be placed in ecf Time with Patient: Less than 30
--- NOTE | 2022-05-17 15:21 | P.PN ---
Subjective Progress Note Date: 05/17/22 Follow-up for acute kidney injury. Urine output of 1.1 L in the last 24 hours. Urine appears dark. Objective - Vital Signs Vital signs: Vital Signs Temp 97.4 F L 05/17/22 12:00 Pulse 68 05/17/22 13:12 Resp 16 05/17/22 13:12 BP 139/64 05/17/22 12:00 Pulse Ox 93 L 05/17/22 12:00 FiO2 Intake & Output 05/16/22 05/17/22 05/17/22 18:59 06:59 18:59 Intake Total 100 720 Output Total 1100 1000 Balance 100 -1100 -280 Intake: Oral 100 720 Output: Urine 1100 1000 Other: Voiding Method Indwelling Catheter Indwelling Catheter Indwelling Catheter # Bowel Movements 1 - Exam Acute distress S1-S2 heard Decreased breath sounds No Edema - Labs CBC & Chem 7: 05/17/22 07:36 05/17/22 07:36 Labs: Abnormal Lab Results - Last 24 Hours (Table) 05/16/22 05/16/22 05/17/22 Range/Units 16:32 20:20 06:06 RBC (4.30-5.90) m/uL Hgb (13.0-17.5) gm/dL Hct (39.0-53.0) % Plt Count (150-450) k/uL Lymphocytes # (1.0-4.8) k/uL Potassium (3.5-5.1) mmol/L Carbon Dioxide (22-30) mmol/L BUN (9-20) mg/dL Creatinine (0.66-1.25) mg/dL Glucose (74-99) mg/dL POC Glucose (mg/dL) 288 H 349 H 315 H (70-110) mg/dL Calcium (8.4-10.2) mg/dL 05/17/22 05/17/22 05/17/22 Range/Units 07:36 07:36 11:58 RBC 3.05 L (4.30-5.90) m/uL Hgb 9.5 L (13.0-17.5) gm/dL Hct 29.3 L (39.0-53.0) % Plt Count 88 L (150-450) k/uL Lymphocytes # 0.8 L (1.0-4.8) k/uL Potassium 2.9 L (3.5-5.1) mmol/L Carbon Dioxide 21 L (22-30) mmol/L BUN 113 H* (9-20) mg/dL Creatinine 3.08 H (0.66-1.25) mg/dL Glucose 275 H (74-99) mg/dL POC Glucose (mg/dL) 337 H (70-110) mg/dL Calcium 7.0 L (8.4-10.2) mg/dL Assessment and Plan Assessment: #1 acute kidney injury multifactorial -Obstructive uropathy with bilateral hydronephrosis -CRS with low EF #2 CHF systolic dysfunction EF 40% #3 kidney disease stage III B secondary to nephrosclerosis with a baseline creatinine around 2.0 MG per DL. #4 bilateral hydronephrosis #6 hypertension with chronic kidney disease Plan: #1 creatinine stable with good urine output. BUNs out of proportion to creatinine suspect overdiuresis and also component of steroids. #2 stop Lasix. #3 daily renal labs #4 urology following #5 no acute indication for renal replacement therapy at this time
[2022-05-17 17:11] LABS: Glucose,Whole Blood 370 mg/dL (70-110)
[2022-05-17 20:16] LABS: Glucose,Whole Blood 322 mg/dL (70-110)
[2022-05-17] MEDS: QUEtiapine 25 MG TAB PO SCH (20:23)
[2022-05-17] MEDS: SODIUM CHLORIDE 0.9% 1,000 ML IV SCH (20:24)
[2022-05-17] MEDS ORDERED: DILTIAZEM 125 MG in SODIUM CHLORIDE 0.9% 100 ML IV SCH (21:00)
[2022-05-18] MEDS: ALBUTEROL NEBULIZED 2.5 MG/3 ML INHALATION PRN (01:12)
[2022-05-18 05:54] LABS: Glucose,Whole Blood 211 mg/dL (70-110)
[2022-05-18] MEDS: LEVOTHYROXINE 100 MCG TAB PO SCH (06:41)
[2022-05-18] MEDS: INSULIN ASPART (NovoLOG) 100 UNIT/ML VIAL SQ SCH ×4 (06:41→20:11)
[2022-05-18] MEDS: methylPREDNISolone SOD SUCCI 125 MG/2 ML VIAL IV SCH ×4 (06:41→22:51)
[2022-05-18] MEDS: SODIUM CHLORIDE 0.9% 1,000 ML IV SCH (06:42)
[2022-05-18] MEDS: SYMBICORT 160-4.5 MCG INHALER INHALATION SCH ×2 (07:25→19:17)
[2022-05-18] MEDS: IPRATROPIUM-ALBUTEROL 3 ML NEB INHALATION SCH ×4 (07:25→19:17)
[2022-05-18 07:46] LABS: Basophils % (A) 0 %; Eosinophils % (A) 0 %; HCT 28.5 % (39.0-53.0); HGB 9.3 gm/dL (13.0-17.5); Lymphocytes # (A) 0.6 k/uL (1.0-4.8); Lymphocytes % (A) 5 %; MCH 30.4 pg (25.0-35.0); MCHC 32.5 g/dL (31.0-37.0); MCV 93.5 fL (80.0-100.0); Mean Platelet Volume 9.3; Monocytes # (A) 0.2 k/uL (0-1.0); Monocytes % (A) 2 %; Neutrophils # (A) 10.1 k/uL (1.3-7.7); Neutrophils % (A) 92 %; Platelet Count 102 k/uL (150-450); RBC 3.04 m/uL (4.30-5.90); RDW 13.8 % (11.5-15.5); WBC 11.1 k/uL (3.8-10.6)
[2022-05-18] MEDS: METOPROLOL SUCCINATE (ER) 50 MG TAB.ER.24H PO SCH (07:53)
[2022-05-18] MEDS: INSULIN DETEMIR (LEVEMIR) 100 UNIT/ML SYR SQ SCH (07:53)
[2022-05-18] MEDS: AMIODARONE 200 MG TAB PO SCH ×2 (07:53→20:10)
[2022-05-18] MEDS: SODIUM BICARBONATE TAB 650 MG TAB PO SCH ×2 (07:53→20:10)
[2022-05-18] MEDS: POTASSIUM CHLORIDE ER 20 MEQ TAB.ER PO SCH ×4 (07:53→12:23)
[2022-05-18] MEDS: FAMOTIDINE 20 MG TAB PO SCH (07:54)
[2022-05-18] MEDS: APIXABAN 2.5 MG TABLET PO SCH ×2 (07:54→20:10)
[2022-05-18] MEDS: CLOPIDOGREL 75 MG TAB PO SCH (07:54)
[2022-05-18] MEDS: TAMSULOSIN 0.4 MG CAP.ER.24H PO SCH (07:54)
[2022-05-18 08:09] LABS: Calcium 6.6 mg/dL (8.4-10.2); Potassium 2.8 mmol/L (3.5-5.1)
--- NOTE | 2022-05-18 10:24 | P.PN ---
Subjective Progress Note Date: 05/18/22 Principal diagnosis: This is an 81-year-old male with coronary artery disease, CK stage IIIB diabetes mellitus and history of nephrolithiasis admitted with shortness of breath. Wo rkup has shown bilateral hydronephrosis ultrasound. He has a Mcgovern catheter. His creatinine on admission was 2.25 on 05/11/2022 Peaked at 3.28 and 05/15/2022. Creatinine improved to 3.08 yesterday, he was started on IV fluids and his creatinine is up to 3.25 today. While signs are stable blood pressure is 134/61. 24-hour intake is 720 output is 2020. He is somewhat short of breath on nasal cannula oxygen. No nausea vomiting diarrhea no abdominal pain. Objective - Vital Signs Vital signs: Vital Signs Temp 97.0 F L 05/18/22 07:49 Pulse 65 05/18/22 07:49 Resp 22 05/18/22 07:49 BP 134/61 05/18/22 07:49 Pulse Ox 94 L 05/18/22 07:49 FiO2 Intake & Output 05/17/22 05/18/22 05/18/22 18:59 06:59 18:59 Intake Total 720 Output Total 1000 1020 Balance -280 -1020 Intake: Oral 720 Output: Urine 1000 1020 Other: Voiding Method Indwelling Catheter Indwelling Catheter Indwelling Catheter On exam awake alert oriented on nasal cannula oxygen slightly short of breath HEENT exam no JVP noted neck is supple no facial asymmetry Lungs are significant for bilateral wheezing and occasional coarse crackle fair air entry bilaterally Heart sounds unremarkable for any murmur rub gallop Abdomen soft nontender Extremity exam no significant edema Neurologically awake alert oriented but generalized weakness - Labs CBC & Chem 7: 05/18/22 06:11 05/18/22 06:11 Labs: Abnormal Lab Results - Last 24 Hours (Table) 05/17/22 05/17/22 05/17/22 Range/Units 11:58 16:14 20:14 WBC (3.8-10.6) k/uL RBC (4.30-5.90) m/uL Hgb (13.0-17.5) gm/dL Hct (39.0-53.0) % Plt Count (150-450) k/uL Neutrophils # (1.3-7.7) k/uL Lymphocytes # (1.0-4.8) k/uL Potassium (3.5-5.1) mmol/L BUN (9-20) mg/dL Creatinine (0.66-1.25) mg/dL Glucose (74-99) mg/dL POC Glucose (mg/dL) 337 H 370 H 322 H (70-110) mg/dL Calcium (8.4-10.2) mg/dL 05/18/22 05/18/22 05/18/22 Range/Units 05:52 06:11 06:11 WBC 11.1 H (3.8-10.6) k/uL RBC 3.04 L (4.30-5.90) m/uL Hgb 9.3 L (13.0-17.5) gm/dL Hct 28.5 L (39.0-53.0) % Plt Count 102 L (150-450) k/uL Neutrophils # 10.1 H (1.3-7.7) k/uL Lymphocytes # 0.6 L (1.0-4.8) k/uL Potassium 2.8 L (3.5-5.1) mmol/L BUN 116 H* (9-20) mg/dL Creatinine 3.25 H (0.66-1.25) mg/dL Glucose 167 H (74-99) mg/dL POC Glucose (mg/dL) 211 H (70-110) mg/dL Calcium 6.6 L (8.4-10.2) mg/dL Assessment and Plan Assessment: Impression 1. Acute kidney injury secondary to bilateral hydronephrosis from outlet obstruction is post Mcgovern catheter draining fair amount of urine which is slightly red tinged 2. Slight worsening in creatinine possibly from congestive heart failure in addition to about. 3. Potassium is 2.8 Significant hypokalemia secondary to steroids rule out magnesium deficiency. 4. Coronary artery disease, COPD, diabetes mellitus., History of otitis AICD coronary artery bypass graft Recommendation 1. Obtain chest x-ray 2. Discontinue IV fluids 3. Monitor potassium currently has been ordered 400 mEq in total
--- NOTE | 2022-05-18 10:55 | XR ---
EXAMINATION TYPE: XR chest 2V DATE OF EXAM: 05/18/2022 COMPARISON: 05/13/2022 HISTORY: 81-year-old male CHF, bradycardia, ataxia, dizziness. TECHNIQUE: AP and lateral views FINDINGS: Heart upper limits of normal in size. Median sternotomy wires are present. Clips. Mild interstitial p rominence slightly increased. Patchy peripheral left basilar opacity. Possible trace effusion on the lateral view. IMPRESSION: Interstitial density has increased. Possible trace effusion on the lateral view. New patchy atelectas is or pneumonia at the left base. Correlate to exclude mild CHF.
--- NOTE | 2022-05-18 11:14 | P.PN ---
Subjective Progress Note Date: 05/18/22 HISTORY OF PRESENTING ILLNESS Patient is a pleasant 81-year-old male with history of CAD status post CABG 2001 ischemic cardiomyopathy status post AICD, [facility], hypertension, diabetes mellitus type 2, paroxysmal atrial fibrillation not on anticoagulation previously secondary to GI bleeding and hyperlipidemia. He had previously followed with Dr. Bravo however states has been following with a new c ardiologist and patient is unsure which one. Previous echo June 2020 showed EF 40-45% however reported decreased EF by more recent echo. Patient presented with shortness of breath and was found to have influenza. Initial EKG had shown sinus rhythm. Patient went into atrial flutter with RVR with heart rate 150 and patient developed chest pain with this. He was attempted with nitro however he did have decrease in blood pressure and additionally was given amiodarone and Cardizem. After approximately 45 minutes he did have return of heart rates into the 60s with what appears to be paced rhythm. White blood cell count did increase from 8.0 up to 18.6. Troponins have been chronically elevated in the past however went from 0.6 up to 1.4 up to 22. ProBNP increased at 26,000. His creatinine has increased from baseline 1.7-2 and 2.2 on presentation up to 2.7. He currently remains on a heparin drip with Plavix and has been on amiodarone drip as well as the metoprolol 50 mg daily. Concern of worsening pulmonary edema and therefore was placed on 40 mg IV twice a day. 05/14 Patient seen and examined. Patient stating he had some increased shortness breath this morning however better than yesterday. Creatinine increased to 3.0. No significant hypotension noted. His metoprolol was increased at 100 mg daily and remains on amiodarone oral. Brief run of nonsustained VT. Patient remains in atrial paced rhythm in the 60s. 05/15 Patient seen and examined. Patient admits to continued shortness breath. Urine output has been 1.9 L last 24 hours. Remains on Lasix 40 mg IV twice a day. Creatinine increased to 3.28 today. 05/18 We have been reconsulted to evaluate the patient for atrial flutter with RVR. Patient had episode last evening with heart rate in the 140s. Heart rate this morning is in the 60s. His hemoglobin is 9.3. Potassium 2.8, BUN 116 and creatinine 3.25. Patient is currently on amiodarone 400 mg twice daily to be tapered starting 1227, Toprol 150 mg daily. Patient continues to have a cough and positive on admission for RSV. PHYSICAL EXAMINATION Vital signs reviewed. CONSTITUTIONAL: No apparent distress, ill appearing, frail HEENT: Head is normocephalic. Pupils are equal, round. Sclerae anicteric. Mucous membranes of the mouth are moist. No JVD. No carotid bruit. CHEST EXAMINATION: Bilateral crackles and rhonchi HEART EXAMINATION: Irregular rate and rhythm. S1, S2 heard. No murmurs, gallops or rub. ABDOMEN: Soft, nontender. Positive bowel sounds. EXTREMITIES: 2+ peripheral pulses, no lower extremity edema and no calf tenderness. NEUROLOGIC EXAMINATION: Patient is awake, alert and oriented x3. ASSESSMENT 1. Non-STEMI likely type II mechanism related to atrial flutter with RVR 2. Typical atrial flutter with RVR heart rates 150s highly symptomatic 3. Acute on chronic respiratory failure related to RSV as well as heart failure 4. Acute on chronic systolic heart failure 5. History of ischemic cardiomyopathy EF ranging from reportedly 25% up to 40- 45% 6. Hypertension 7. CAD status post CABG 8. Chronic kidney disease, mild increase in creatinine PLAN Non-STEMI related to atrial flutter with RVR. Given his defibrillator and atrial paced attempt to rate control and increase metoprolol and continue with amiodarone. Decrease Amio to 200mg bid 05/20 then 200mg daily 05/27. Appears near euvolemic and defer further diuretics to Nephro. Increased creatinine may be related to ATN from atrial flutter with RVR 3 days ago. Echo shows EF 40-45%. Continue medical therapy. Continue Eliquis 2.5mg bid. Prognosis guarded. Nurse practitioner note has been reviewed, I agree with the documented findings and plan of care. Patient was seen and examined. Objective - Vital Signs Vital signs: Vital Signs Temp 97.0 F L 05/18/22 07:49 Pulse 65 05/18/22 07:49 Resp 22 05/18/22 07:49 BP 134/61 05/18/22 07:49 Pulse Ox 94 L 05/18/22 07:49 FiO2 Intake & Output 05/17/22 05/18/22 05/18/22 18:59 06:59 18:59 Intake Total 720 Output Total 1000 1020 Balance -280 -1020 Intake: Oral 720 Output: Urine 1000 1020 Other: Voiding Method Indwelling Catheter Indwelling Catheter Indwelling Catheter - Labs CBC & Chem 7: 05/18/22 06:11 05/18/22 06:11 Labs: Abnormal Lab Results - Last 24 Hours (Table) 05/17/22 05/17/22 05/17/22 Range/Units 11:58 16:14 20:14 WBC (3.8-10.6) k/uL RBC (4.30-5.90) m/uL Hgb (13.0-17.5) gm/dL Hct (39.0-53.0) % Plt Count (150-450) k/uL Neutrophils # (1.3-7.7) k/uL Lymphocytes # (1.0-4.8) k/uL Potassium (3.5-5.1) mmol/L BUN (9-20) mg/dL Creatinine (0.66-1.25) mg/dL Glucose (74-99) mg/dL POC Glucose (mg/dL) 337 H 370 H 322 H (70-110) mg/dL Calcium (8.4-10.2) mg/dL 05/18/22 05/18/22 05/18/22 Range/Units 05:52 06:11 06:11 WBC 11.1 H (3.8-10.6) k/uL RBC 3.04 L (4.30-5.90) m/uL Hgb 9.3 L (13.0-17.5) gm/dL Hct 28.5 L (39.0-53.0) % Plt Count 102 L (150-450) k/uL Neutrophils # 10.1 H (1.3-7.7) k/uL Lymphocytes # 0.6 L (1.0-4.8) k/uL Potassium 2.8 L (3.5-5.1) mmol/L BUN 116 H* (9-20) mg/dL Creatinine 3.25 H (0.66-1.25) mg/dL Glucose 167 H (74-99) mg/dL POC Glucose (mg/dL) 211 H (70-110) mg/dL Calcium 6.6 L (8.4-10.2) mg/dL
--- NOTE | 2022-05-18 11:53 | P.PN ---
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 Is coming in with increasing dyspnea, chest tightness and wheezing and the patient in emergency department was diagnosed having a positive RSV infection by PCR. Influenza was negative. Covid 19 testing was negative. Chest x-ray was consistent with some mild subsegmental atelectatic changes in the right midlung, no other acute abnormalities noted. Sternal wires were present. He was started on bronchodilators and steroids. He was started also on oxygen therapy and the patient is currently on 2 L O2 nasal cannula. He is still struggling with his breathing is short of breath. His comorbid conditions include coronary artery disease with previous bypass surgery, hypertension, ulcerative colitis currently inactive and stable, chronic diastolic heart failure and COPD. The patient also has history of lymphoma treated with systemic chemotherapy seems to be in remission since 2011. I am evaluating this patient today on 05/12/2022. The patient appears fairly comfortable on 2 L nasal cannula in bed. The patient has an audible expiratory wheeze on auscultation. His IV Solu-Medrol was weaned down, to obtain better glucose control by primary. His most recent CBC count on 05/11/2022 revealed a WBC of 8, hemoglobin 9.6, hematocrit 29.9, platelets 110. Today's BMP from 05/12/2022 shows a sodium 141, potassium of 4.7, chloride of 111, serum CO2 of 16.9, V1 53, creatinine of 2.3, glucose of 214.most recent chest x-ray on 05/11/2022 revealed mild subsegmental atelectasis in the right, mid lung which was new compared to old exam. He is managed on DuoNeb inhalation and IV Solu- Medrol. He is on empiric antibiotic coverage with Zithromax. The patient is seen today 05/13/2022 in follow-up on the selective care unit. He is currently maintaining O2 saturations in the 90s on 2 L/m per nasal cannula. Follow-up chest x-ray reveals mild pulmonary venous congestion without overt failure. White count 18.6. Hemoglobin 9.1. Platelets 140. Sodium 144. Potassium 4.2. Bicarb 17. BUN 68. Creatinine 2.72. Troponins 22.7. ProBNP 26,800. Glucose 166. Ultrasound of the kidneys/bladder revealed moderate hydronephrosis bilaterally. Last evening he developed atrial flutter with a rapid ventricular response and significant chest discomfort with noted ST depression. Rapid response team was called and he was transferred to the selective care unit. He's been initiated on amiodarone drip. He is on Lasix 40 mg IV every 12 hours. Remains on a heparin drip per weight base protocol. He is continued on DuoNeb inhalations, Symbicort, IV solu Medrol. Remains on empiric antibiotics in the form of azithromycin. The patient is seen today 05/14/2022 in follow-up on the selective care unit. He was having issues with altered mental status but is currently awake and alert. Currently maintaining O2 saturations in the 90s on 2 L/m per nasal cannula. Afebrile. Hemodynamically stable. Echocardiogram revealed decreased LV systolic function with ejection fraction of 40-45%. Mild to moderate mitral regurgitation. white count 12.7. Hemoglobin 9.8. Platelet count 122. Sodium 142. Potassium 3.3. Chloride 112. Bicarb 19. BUN 84. Creatinine 3.05. Glucose 142. Continued on DuoNeb inhalations, Symbicort, IV Solu-Medrol. Currently on sodium bicarb tablets. He did have issues with atrial fibrillation with rapid ventricular response. He was loaded with amiodarone. Currently on a Cardizem drip at 5 mg an hour. Remains on heparin drip per weight-based protocol. Lasix 40 mg IV twice daily. Remains in a negative balance. reevaluated today on 05/15/22, patient continues to be marginal, continues to have intermittent episodes of cough and wheezing. Not quite ready for discharge planning. Remains on bronchodilators, remains on steroids, remains on Lasix. And he is also on heparin.WBC count is 8.9 hemoglobin 9.5, potassium is low at 2.9 BUN is elevated at 92 creatinine 3.28., renal profile has been gradually getting worse. May have to consider cutting down on his diuretics.his last chest x-ray was 2 days ago, I plan to repeat his chest x-ray in a.m.last chest x-ray showed mild pulmonary venous congestion, no evidence of overt failure. Patient was reevaluated today on 05/17/22, continues to haveintermittent wheez ing and cough, patient is more awake and alert today, maintained on 3 L nasal cannula, O2 saturations 90%. Being followed by many consultants including nephrology and cardiology. Pulmonary-khan, we will consider cleared the patient to be discharged home if cleared by other consultants. Reevaluated today on 05/18/22, patient continues to do relatively well, pulmonary-khan the patient is having less and less symptoms of cough and wheezing, I will clear the patient for discharge, patient will definitely need placement. In the meantime continue his present course of treatment and bronchodilators. Objective - Vital Signs Vital signs: Vital Signs Temp 97.0 F L 05/18/22 07:49 Pulse 68 05/18/22 11:31 Resp 22 05/18/22 11:02 BP 152/68 05/18/22 11:02 Pulse Ox 96 05/18/22 11:02 FiO2 Intake & Output 05/17/22 05/18/22 05/18/22 18:59 06:59 18:59 Intake Total 720 Output Total 1000 1020 Balance -280 -1020 Intake: Oral 720 Output: Urine 1000 1020 Other: Voiding Method Indwelling Catheter Indwelling Catheter Indwelling Catheter - Exam GENERAL EXAM: Alert, pleasant 81-year-old male patient, on 4 L nasal cannula, comfortable in no apparent distress. O2 saturation is 96% on 4 L. HEAD: Normocephalic. EYES: Normal reaction of pupils, equal size. NOSE: Clear with pink turbinates. THROAT: No erythema or exudates. NECK: No masses, no JVD. CHEST: No chest wall deformity. LUNGS: Minimal wheezing on forced expiratory maneuver only. CVS: S1 and S2 normal with no audible murmur, regular rhythm. ABDOMEN: No hepatosplenomegaly, normal bowel sounds, no guarding or rigidity. SKIN: No rashes CENTRAL NERVOUS SYSTEM: No focal deficits, tone is normal in all 4 extremities. EXTREMITIES: There is no peripheral edema. No clubbing, no cyanosis. Peripheral pulses are intact. - Labs CBC & Chem 7: 05/18/22 06:11 05/18/22 06:11 Labs: Abnormal Lab Results - Last 24 Hours (Table) 05/17/22 05/17/22 05/17/22 Range/Units 11:58 16:14 20:14 WBC (3.8-10.6) k/uL RBC (4.30-5.90) m/uL Hgb (13.0-17.5) gm/dL Hct (39.0-53.0) % Plt Count (150-450) k/uL Neutrophils # (1.3-7.7) k/uL Lymphocytes # (1.0-4.8) k/uL Potassium (3.5-5.1) mmol/L BUN (9-20) mg/dL Creatinine (0.66-1.25) mg/dL Glucose (74-99) mg/dL POC Glucose (mg/dL) 337 H 370 H 322 H (70-110) mg/dL Calcium (8.4-10.2) mg/dL 05/18/22 05/18/22 05/18/22 Range/Units 05:52 06:11 06:11 WBC 11.1 H (3.8-10.6) k/uL RBC 3.04 L (4.30-5.90) m/uL Hgb 9.3 L (13.0-17.5) gm/dL Hct 28.5 L (39.0-53.0) % Plt Count 102 L (150-450) k/uL Neutrophils # 10.1 H (1.3-7.7) k/uL Lymphocytes # 0.6 L (1.0-4.8) k/uL Potassium 2.8 L (3.5-5.1) mmol/L BUN 116 H* (9-20) mg/dL Creatinine 3.25 H (0.66-1.25) mg/dL Glucose 167 H (74-99) mg/dL POC Glucose (mg/dL) 211 H (70-110) mg/dL Calcium 6.6 L (8.4-10.2) mg/dL Assessment and Plan Assessment: Acute RSV infection. Acute exacerbation of COPD with secondary shortness of breath Acute hypoxic respiratory failure , multifactorial as noted above Acute atrial flutter with rapid ventricular response Acute non-ST segment elevation myocardial infarction Bilateral hydronephrosis Coronary artery disease with previous bypass surgery. Sick sinus syndrome with a pacemaker History of congestion heart failure, systolic versus diastolic Hypertension Hyperlipidemia BPH Remote history of lymphoma, completed systemic chemotherapy and the patient has been in remission Diabetes mellitus Chronic stage III kidney disease History of nephrolithiasis Previous history of the left lower extremities History of ulcerative colitis History of chronic anemia Plan Currently stable and on 4 L nasal cannula Continued on bronchodilators Continued on IV diuretics Prognosis is guarded we'll clear the patient to be discharged home if cleared by other consultants. Patient will definitely need placement. Patient will likely need to be placed in ecf Time with Patient: Less than 30
[2022-05-18 12:09] LABS: Glucose,Whole Blood 299 mg/dL (70-110)
[2022-05-18 17:04] LABS: Glucose,Whole Blood 296 mg/dL (70-110)
--- NOTE | 2022-05-18 18:13 | PN ---
PROGRESS NOTE DATE OF SERVICE: 05/17/2022 SUBJECTIVE: This is an 81-year-old gentleman, who was admitted with acute hypoxic respiratory failure, COPD, and also had RSV. The patient is being closely monitored. No chest pain. No palpitations. No fever. OBJECTIVE: VITAL SIGNS: Pulse 68, blood pressure 139/60, respirations 16. HEENT: Conjunctivae are normal. CARDIOVASCULAR: S1 and S2. RESPIRATORY: Bilateral scattered rhonchi. ABDOMEN: Soft. NERVOUS SYSTEM: Diffusely weak. LABORATORY DATA: Reviewed. Creatinine 3.08. ASSESSMENT: 1. Acute hypoxic respiratory failure with chronic obstructive pulmonary disease acute exacerbation. 2. Nsjje-kh-swzukwr kidney disease. 3. Acute RSV. 4. Atrial flutter. 5. Multiple medical issues. RECOMMENDATIONS: Recommend to continue current medications and symptomatic treatment. Otherwise, PT and OT evaluation and bronchodilators. See orders for details. Repeat labs and closely follow. Possible ECF rehab. Further recommendations to follow. GILBERTO / SORINN: [id number] /
[2022-05-18 19:58] LABS: Glucose,Whole Blood 317 mg/dL (70-110)
[2022-05-18] MEDS: QUEtiapine 25 MG TAB PO SCH (20:10)
[2022-05-19] MEDS: ALBUTEROL NEBULIZED 2.5 MG/3 ML INHALATION PRN (00:58)
--- NOTE | 2022-05-19 01:40 | PN ---
PROGRESS NOTE DATE OF SERVICE: 05/18/2022 SUBJECTIVE: This is an 81-year-old gentleman, who was admitted with COPD exacerbation, also had multiple other medical problems. PT/OT evaluated the patient. No fever. No cough. The patient is mildly confused. OBJECTIVE: VITAL SIGNS: Pulse is 60, blood pressure NTD, respirations 20. CHEST: Bilateral scattered rhonchi. CARDIOVASCULAR: N ABDOMEN: Soft N LABORATORY DATA: Reviewed. ASSESSMENT: 1. Chronic obstructive pulmonary disease acute exacerbation with acute RSV with acute hypoxic respiratory failure. 2. Acute renal failure. 3. Atrial flutter. 4. Elevated troponins, on multiple medications. RECOMMENDATIONS: 1. Recommend to continue current management. 2. PT/OT evaluation, possible ECF rehab. Further recommendations to follow. GILBERTO / SORINN: [id number] / MTDD
[2022-05-19 06:00] LABS: Glucose,Whole Blood 331 mg/dL (70-110)
[2022-05-19] MEDS: methylPREDNISolone SOD SUCCI 125 MG/2 ML VIAL IV SCH ×4 (06:37→23:17)
[2022-05-19] MEDS: LEVOTHYROXINE 100 MCG TAB PO SCH (06:37)
[2022-05-19] MEDS: INSULIN ASPART (NovoLOG) 100 UNIT/ML VIAL SQ SCH ×4 (06:38→21:25)
[2022-05-19 08:09] LABS: Basophils % (A) 0 %; Eosinophils % (A) 0 %; HCT 27.8 % (39.0-53.0); HGB 8.8 gm/dL (13.0-17.5); Hypochromasia Moderate; Lymphocytes # (A) 0.5 k/uL (1.0-4.8); Lymphocytes % (A) 5 %; MCH 30.4 pg (25.0-35.0); MCHC 31.5 g/dL (31.0-37.0); MCV 96.5 fL (80.0-100.0); Mean Platelet Volume 9.7; Monocytes # (A) 0.1 k/uL (0-1.0); Monocytes % (A) 1 %; Neutrophils # (A) 9.6 k/uL (1.3-7.7); Neutrophils % (A) 92 %; Platelet Count 105 k/uL (150-450); RBC 2.89 m/uL (4.30-5.90); RDW 13.6 % (11.5-15.5); WBC 10.4 k/uL (3.8-10.6)
[2022-05-19] MEDS: IPRATROPIUM-ALBUTEROL 3 ML NEB INHALATION SCH ×4 (08:21→20:00)
[2022-05-19] MEDS: SYMBICORT 160-4.5 MCG INHALER INHALATION SCH ×2 (08:21→20:00)
[2022-05-19 08:25] LABS: Albumin 2.8 g/dL (3.5-5.0); Calcium 6.9 mg/dL (8.4-10.2); Potassium 4.1 mmol/L (3.5-5.1); Total Bilirubin 0.4 mg/dL (0.2-1.3); Total Protein 5.9 g/dL (6.3-8.2)
[2022-05-19] MEDS: METOPROLOL SUCCINATE (ER) 50 MG TAB.ER.24H PO SCH (08:41)
[2022-05-19] MEDS: CLOPIDOGREL 75 MG TAB PO SCH (08:41)
[2022-05-19] MEDS: AMIODARONE 200 MG TAB PO SCH ×2 (08:41→21:25)
[2022-05-19] MEDS: TAMSULOSIN 0.4 MG CAP.ER.24H PO SCH (08:42)
[2022-05-19] MEDS: APIXABAN 2.5 MG TABLET PO SCH (08:42)
[2022-05-19] MEDS: SODIUM BICARBONATE TAB 650 MG TAB PO SCH ×2 (08:43→21:25)
[2022-05-19] MEDS: POTASSIUM CHLORIDE ER 20 MEQ TAB.ER PO SCH (08:43)
[2022-05-19] MEDS: INSULIN DETEMIR (LEVEMIR) 100 UNIT/ML SYR SQ SCH (09:53)
[2022-05-19] MEDS: FAMOTIDINE 20 MG TAB PO SCH (09:57)
--- NOTE | 2022-05-19 10:36 | P.PN ---
Subjective Progress Note Date: 05/19/22 Principal diagnosis: This is an 81-year-old male with coronary artery disease, CK stage IIIB diabetes mellitus and history of nephrolithiasis He was admitted with shortness of breath. Workup has shown bilateral hydronephrosis ultrasound. He has a Mcgovern catheter. His creatinine on admission was 2.25 on 05/11/2022 Peaked at 3.28 and 05/15/2022. Creatinine improved to 3.08 and was 3.25 yesterday, creatinine improved to 2.84 this morning Vital signs signs are stable. Urine output is 17 25 mL intake 780 mL He is somewhat short of breath on nasal cannula oxygen. No nausea vomiting diarrhea no abdominal pain. Is known with coronary artery disease diabetes history of lymphoma chemotherapy radiation in the remote past and bladder stones. Also has had AICD and cardiac catheterization and bypass graft Objective - Vital Signs Vital signs: Vital Signs Temp 97.8 F 05/19/22 03:35 Pulse 66 05/19/22 08:34 Resp 18 05/19/22 03:35 BP 141/66 05/19/22 03:35 Pulse Ox 96 05/19/22 03:35 FiO2 Intake & Output 05/18/22 05/19/22 05/19/22 18:59 06:59 18:59 Intake Total 540 240 180 Output Total 1775 250 Balance 540 -1535 -70 Intake: Oral 540 240 180 Output: Urine 1775 250 Other: Voiding Method Indwelling Catheter Indwelling Catheter On exertion awake alert oriented No JVP noted neck is supple no facial asymmetry Lungs are significant for harsh breath sounds with good air entry Heart sounds unremarkable Abdomen soft nontender Extremity exam was trace edema Neurologically awake alert oriented but generalized weakness - Labs CBC & Chem 7: 05/19/22 07:16 05/19/22 07:16 Labs: Abnormal Lab Results - Last 24 Hours (Table) 05/18/22 05/18/22 05/18/22 Range/Units 12:04 16:48 19:56 RBC (4.30-5.90) m/uL Hgb (13.0-17.5) gm/dL Hct (39.0-53.0) % Plt Count (150-450) k/uL Neutrophils # (1.3-7.7) k/uL Lymphocytes # (1.0-4.8) k/uL Chloride (98-107) mmol/L Carbon Dioxide (22-30) mmol/L BUN (9-20) mg/dL Creatinine (0.66-1.25) mg/dL Glucose (74-99) mg/dL POC Glucose (mg/dL) 299 H 296 H 317 H (70-110) mg/dL Calcium (8.4-10.2) mg/dL Alkaline Phosphatase (38-126) U/L Total Protein (6.3-8.2) g/dL Albumin (3.5-5.0) g/dL 05/19/22 05/19/22 05/19/22 Range/Units 05:58 07:16 07:16 RBC 2.89 L (4.30-5.90) m/uL Hgb 8.8 L (13.0-17.5) gm/dL Hct 27.8 L (39.0-53.0) % Plt Count 105 L (150-450) k/uL Neutrophils # 9.6 H (1.3-7.7) k/uL Lymphocytes # 0.5 L (1.0-4.8) k/uL Chloride 109 H (98-107) mmol/L Carbon Dioxide 20 L (22-30) mmol/L BUN 114 H* (9-20) mg/dL Creatinine 2.84 H (0.66-1.25) mg/dL Glucose 323 H (74-99) mg/dL POC Glucose (mg/dL) 331 H (70-110) mg/dL Calcium 6.9 L (8.4-10.2) mg/dL Alkaline Phosphatase 130 H (38-126) U/L Total Protein 5.9 L (6.3-8.2) g/dL Albumin 2.8 L (3.5-5.0) g/dL Assessment and Plan Assessment: Impression 1. Acute kidney injury secondary to bilateral hydronephrosis from outlet obstruction is post Mcgovern catheter draining fair amount of urine which is slightly red tinged. His IV fluids was discontinued yesterday a chest x-ray shows possible CHF 2. Slight worsening in creatinine possibly from congestive heart failure in addition. Creatinine was 2.25 on admission and peaked at 3.28 improved to 2.84 this morning 3. Potassium is 2.8 Significant hypokalemia secondary to steroids rule out magnesium deficiency. Replace and potassium is 4.1 this morning 4. Coronary artery disease, COPD, diabetes mellitus., History of AICD coronary artery bypass graft Recommendation 1. Hold off any IV fluids 2. Monitor labs
[2022-05-19 11:50] LABS: Glucose,Whole Blood 403 mg/dL (70-110)
--- NOTE | 2022-05-19 12:17 | P.PN ---
Subjective Progress Note Date: 05/19/22 HISTORY OF PRESENTING ILLNESS Patient is a pleasant 81-year-old male with history of CAD status post CABG 2001 ischemic cardiomyopathy status post AICD, [facility], hypertension, diabetes mellitus type 2, paroxysmal atrial fibrillation not on anticoagulation previously secondary to GI bleeding and hyperlipidemia. He had previously followed with Dr. Bravo however states has been following with a new c ardiologist and patient is unsure which one. Previous echo June 2020 showed EF 40-45% however reported decreased EF by more recent echo. Patient presented with shortness of breath and was found to have influenza. Initial EKG had shown sinus rhythm. Patient went into atrial flutter with RVR with heart rate 150 and patient developed chest pain with this. He was attempted with nitro however he did have decrease in blood pressure and additionally was given amiodarone and Cardizem. After approximately 45 minutes he did have return of heart rates into the 60s with what appears to be paced rhythm. White blood cell count did increase from 8.0 up to 18.6. Troponins have been chronically elevated in the past however went from 0.6 up to 1.4 up to 22. ProBNP increased at 26,000. His creatinine has increased from baseline 1.7-2 and 2.2 on presentation up to 2.7. He currently remains on a heparin drip with Plavix and has been on amiodarone drip as well as the metoprolol 50 mg daily. Concern of worsening pulmonary edema and therefore was placed on 40 mg IV twice a day. 05/14 Patient seen and examined. Patient stating he had some increased shortness breath this morning however better than yesterday. Creatinine increased to 3.0. No significant hypotension noted. His metoprolol was increased at 100 mg daily and remains on amiodarone oral. Brief run of nonsustained VT. Patient remains in atrial paced rhythm in the 60s. 05/15 Patient seen and examined. Patient admits to continued shortness breath. Urine output has been 1.9 L last 24 hours. Remains on Lasix 40 mg IV twice a day. Creatinine increased to 3.28 today. 05/18 We have been reconsulted to evaluate the patient for atrial flutter with RVR. Patient had episode last evening with heart rate in the 140s. Heart rate this morning is in the 60s. His hemoglobin is 9.3. Potassium 2.8, BUN 116 and creatinine 3.25. Patient is currently on amiodarone 400 mg twice daily to be tapered starting 1227, Toprol 150 mg daily. Patient continues to have a cough and positive on admission for RSV. 05/19 Patient is resting in bed and appears to be comfortable, he denies shortness of breath. Heart rate is running in the 60s sinus rhythm/atrial pacing. Blood pressure 132/58. Hemoglobin is 8.8, BUN 114, creatinine 2.84. Chest x-ray from 05/18 revealed interstitial density has increased. Possible trace effusion on the lateral view. New patchy atelectasis or pneumonia of the left base. Correlate to exclude mild CHF. PHYSICAL EXAMINATION Vital signs reviewed. CONSTITUTIONAL: No apparent distress, ill appearing, frail HEENT: Head is normocephalic. Pupils are equal, round. Sclerae anicteric. Mucous membranes of the mouth are moist. No JVD. No carotid bruit. CHEST EXAMINATION: Bilateral crackles and rhonchi HEART EXAMINATION: Irregular rate and rhythm. S1, S2 heard. No murmurs, gallops or rub. ABDOMEN: Soft, nontender. Positive bowel sounds. EXTREMITIES: 2+ peripheral pulses, no lower extremity edema and no calf tenderness. NEUROLOGIC EXAMINATION: Patient is awake, alert and oriented x3. ASSESSMENT 1. Non-STEMI likely type II mechanism related to atrial flutter with RVR 2. Typical atrial flutter with RVR heart rates 150s highly symptomatic 3. Acute on chronic respiratory failure related to RSV as well as heart failure 4. Acute on chronic systolic heart failure 5. History of ischemic cardiomyopathy EF ranging from reportedly 25% up to 40- 45% 6. Hypertension 7. CAD status post CABG 8. Chronic kidney disease, mild increase in creatinine PLAN Non-STEMI related to atrial flutter with RVR. Given his defibrillator and atrial paced attempt to rate control and increase metoprolol and continue with amiodarone. Decrease Amio to 200mg bid 05/20 then 200mg daily 05/27. Appears near euvolemic and defer further diuretics to Nephro. Increased creatinine may be related to ATN from atrial flutter with RVR 3 days ago. Echo shows EF 40-45%. Continue medical therapy. Continue Eliquis 2.5mg bid. Prognosis guarded. Nurse practitioner note has been reviewed, I agree with the documented findings and plan of care. Patient was seen and examined. Objective - Vital Signs Vital signs: Vital Signs Temp 97.8 F 05/19/22 03:35 Pulse 66 05/19/22 08:34 Resp 18 05/19/22 03:35 BP 141/66 05/19/22 03:35 Pulse Ox 96 05/19/22 03:35 FiO2 Intake & Output 05/18/22 05/19/22 05/19/22 18:59 06:59 18:59 Intake Total 540 240 Output Total 1775 Balance 540 -1535 Intake: Oral 540 240 Output: Urine 1775 Other: Voiding Method Indwelling Catheter Indwelling Catheter - Labs CBC & Chem 7: 05/19/22 07:16 05/19/22 07:16 Labs: Abnormal Lab Results - Last 24 Hours (Table) 05/18/22 05/18/22 05/18/22 Range/Units 12:04 16:48 19:56 RBC (4.30-5.90) m/uL Hgb (13.0-17.5) gm/dL Hct (39.0-53.0) % Plt Count (150-450) k/uL Neutrophils # (1.3-7.7) k/uL Lymphocytes # (1.0-4.8) k/uL Chloride (98-107) mmol/L Carbon Dioxide (22-30) mmol/L BUN (9-20) mg/dL Creatinine (0.66-1.25) mg/dL Glucose (74-99) mg/dL POC Glucose (mg/dL) 299 H 296 H 317 H (70-110) mg/dL Calcium (8.4-10.2) mg/dL Alkaline Phosphatase (38-126) U/L Total Protein (6.3-8.2) g/dL Albumin (3.5-5.0) g/dL 05/19/22 05/19/22 05/19/22 Range/Units 05:58 07:16 07:16 RBC 2.89 L (4.30-5.90) m/uL Hgb 8.8 L (13.0-17.5) gm/dL Hct 27.8 L (39.0-53.0) % Plt Count 105 L (150-450) k/uL Neutrophils # 9.6 H (1.3-7.7) k/uL Lymphocytes # 0.5 L (1.0-4.8) k/uL Chloride 109 H (98-107) mmol/L Carbon Dioxide 20 L (22-30) mmol/L BUN 114 H* (9-20) mg/dL Creatinine 2.84 H (0.66-1.25) mg/dL Glucose 323 H (74-99) mg/dL POC Glucose (mg/dL) 331 H (70-110) mg/dL Calcium 6.9 L (8.4-10.2) mg/dL Alkaline Phosphatase 130 H (38-126) U/L Total Protein 5.9 L (6.3-8.2) g/dL Albumin 2.8 L (3.5-5.0) g/dL
--- NOTE | 2022-05-19 13:51 | P.PN ---
Subjective Progress Note Date: 05/19/22 81-year-old male came in with complaints of shortness of breath patient does have extensive history does have history of sick sinus syndrome history of coronary artery disease CABG patient has a wheezing on exam. Patient is requiring oxygen usually doesn't use oxygen at home patient has some wheezing on exam patient is found to have C. Sepsis from RSV. Patient is also on heart failure exacerbation with elevated BNP elevated JVD. Patient has chronic diastolic dysfunction. 05/12/2022 Patient is seen and evaluated in follow-up with pulmonary following a currently maintained on 2 L via nasal cannula and continues with significant wheezing. Patient was maintained on IV steroids and increased per pulmonary's patient continues to have significant wheezing on exam. Patient does not normally wear oxygen the outpatient setting and recommended to wean FiO2 as tolerated. Patient also being treated with IV Lasix for CHF with diastolic dysfunction acute exacerbation. Denies chest pain or palpitations and reports no significant improvement in shortness of breath as of yet. Patient encouraged increased activity as tolerated. Patient also having extremely elevated blood sugars most likely steroid effect and will continue sliding scale and will also start long-acting. Will change diet to consistent carb. Recommend continued monitoring of Accu-Cheks before meals and at bedtime. Will follow-up with repeat labs in the a.m. 05/13/2022 Patient is seen in follow-up today much more lethargic although arousable. Patient had an episode of atrial flutter with RVR and transferred to stepdown unit placed on IV heparin along with Cardizem. Troponin drawn up to 22 with associated chest pain and cardiology considering most likely type II myocardial infarction secondary to atrial flutter. Repeat 2-D echo is ordered and pending. Patient also continues with RSV currently on 2-3 L via nasal cannula. Patient appears dyspneic and working to breathe during exam. Patient also continuing wi th some increased confusion likely metabolic encephalopathy his kidney functions are worsening and nephrology on consult now. Patient being started on IV Lasix twice daily. Chest x-ray shows no overt failure. Concern of jump in white count appears most likely reactive secondary to IV steroids. Patient is on high-dose IV steroids with pulmonary and also cardiology following. Patient continues on oral Zithromax. Patient is also extremely high risk for aspiration recommend head of the bed elevated 45 at all times and strict aspiration precautions. 05/14/2022 Patient is seen and evaluated in follow-up today mentation appears improved and patient was given Seroquel last night. We'll continue at night. Patient being followed by pulmonary along with cardiology currently maintained on oral amiodarone along with IV heparin. Patient is currently atrial paced rhythm. Patient is maintained on oxygen at 3 L although needs frequent reorientation to continue to wear it as he takes it off frequently. Patient reports he is eating although fair and blood sugars being monitored. Patient was nothing by mouth for cardiology although has been eating now and blood sugars are rising although patient was feeling his blood sugars were low and refusing insulin. Patient is also continued on high-dose IV steroids recommend to continue with Accu-Cheks before meals and at bedtime with sliding scale and have decreased the long- acting as patient appears to be dropping blood sugars every night. Patient with significant weakness recommend physical therapy evaluation. Nephrology following as well and patient was given sodium bicarb and now on tablets as kidney functions are worsening recommending indwelling Mcgovern catheter. Patient is continued on IV Lasix for CHF. Patient is currently afebrile denies worsening shortness of breath or any chest pain today. No reports of nausea or vomiting noted. 05/15/2022 Patient is seen and evaluated follow-up currently sitting up in the chair being followed by multiple medical consultations including nephrology, cardiology, and pulmonary. Urology is consulted as patient is noted to have hematuria in the Mcgovern catheter. Most likely traumatic due to insertion of Mcgovern catheter and hemoglobin is stable above 9. Patient was also maintained on IV heparin for atrial flutter with RVR and being transitioned oral anticoagulant. Patient cont inues to be diuresed on IV Lasix with nephrology recommending to continue with follow-up labs and kidney functions continued to worsen. Potassium found to be critically low at 2.9 and will replace per protocol recommend repeat labs. Patient is currently afebrile denies chest pain or worsening shortness of breath. Discussed with family about CODE STATUS and also treatment plan along with discharge planning and recommended PT/OT evaluation for possible ECF. 05/16/2022 Patient is seen and evaluated in follow-up with nephrology, pulmonary, cardiology following currently sitting up in the chair more awake and alert today. Patient is maintained on 3 L of oxygen via nasal cannula along with D uoNeb treatments and IV steroids. Recommend to monitor blood sugars closely and will adjust the medications as patient is eating more and steroids are being titrated down. Patient has been on IV Lasix twice daily along with oral amiodarone currently rate controlled. Cardiology following as needed. Recommend telemetry monitoring. Patient has been also transitioned off IV heparin on to Eliquis . Nephrology following as well for worsening kidney functions with an elevated BUN of 106, creatinine slightly improved at 3.11 and potassium found to be 3.2 after replacement and will replace per protocol. recommend daily supplementation of potassium which will be added.. 05/19/2022 Patient is seen and evaluated in follow-up maintained off IV diuretics along with IV fluids with nephrology, pulmonary, cardiology following closely. Patient reports to feeling somewhat improved and extremely anxious about wanting to go home and get out of the hospital. Patient with significant weakness will be going to ECF and due to the holiday there is difficulties obtaining insurance authorization to accommodate ECF transfer today. Patient is to continue on oral amiodarone twice a day for the next week and then transitioned down to daily per cardiology recommendations and is maintained on oral anticoagulation. Patient tolerating diet with no reports of nausea or vomiting noted. Patient continues with elevated kidney functions and will continue with indwelling Mcgovern catheter. Recommend repeat labs in the a.m. Encouraged increased activity as tolerated. Afebrile. PHYSICAL EXAMINATION: GENERAL: The patient is alert and oriented x3. Thin built, ill-appearing, cachectic, extremely elderly-appearing HEENT: Pupils are round and equally reacting to light. EOMI. No scleral icterus. No conjunctival pallor. Normocephalic, atraumatic. No pharyngeal erythema. No thyromegaly. CARDIOVASCULAR: S1 and S2 muffled PULMONARY: Diminished breath sounds bilaterally with some minimal expiratory w heezing and rhonchi at the bases noted on exam ABDOMEN: Soft, nontender, nondistended, normoactive bowel sounds. No palpable organomegaly. MUSCULOSKELETAL: No joint swelling or deformity. EXTREMITIES: No cyanosis, clubbing, or pedal edema. NEUROLOGICAL: Gross neurological examination did not reveal any focal deficits. Diffusely weak SKIN: No rashes. Assessment: -Acute hypoxic respiratory failure secondary to COPD exacerbation and RSV infection -Acute renal failure on chronic kidney disease stage V acute renal failure secondary to hypovolemia, worsening and being placed on sodium bicarb tablets -Acute atrial flutter with RVR, currently rate controlled -Hematuria, most likely due to trauma from insertion of Mcgovern catheter while being maintained on IV heparin, improved -Elevated troponin, possibly type II myocardial infarction secondary to atrial flutter -Hyperchloremic metabolic acidosis secondary to IV fluids, improved -Hyperkalemia secondary to IV fluids, now hypokalemia, being replaced -Congestive heart failure acute on chronic chronic systolic dysfunction with acute exacerbation, EF is 40-45% -History of Coronary artery disease status post CABG -benign prostatic hypertrophy -hypertension -Diabetes mellitus , type II uncontrolled with elevated blood sugars secondary to systemic steroids -Hypertension -History of ulcerative colitis presently not on any medications -Anemia of chronic disease -DVT prophylaxis: on eliquis -No code Plan: Recommend to continue current medications and management with pulmonary following. Patient continues on high-dose steroids and will consider transitioning down and to oral steroids on discharge. Wean FiO2 as tolerated Accu-Cheks before meals and at bedtime and will continue with current regimen. Encouraged oral intake and recommend dysphagia chopped diet as patient has missing teeth and difficulty chewing. Patient with atrial flutter with RVR and cardiology following and placed on eliquis along with oral amiodarone and will follow as needed Recommend repeat labs in the a.m. and continue to monitor kidney functions in output Patient is maintained on 2-3 L via nasal cannula and recommended wean FiO2 as tolerated, less dyspneic, needs encouragement keeping the oxygen on Encouraged to increase activity as tolerated and recommend PT to follow the patient, discussed with family about ECF and working on possible [facility], insurance authorization required and due to holiday unable to obtain and will follow-up with case management in a.m. Due to multiple complex medical issues, Prognosis is guarded Possible discharge in 24-48 hours The impression and plan of care has been dictated by Yaquelin Frances, Nurse Practitioner as directed. Dr. Jaime MD I have performed a history and examination and MDM of this patient, discussed the same with the dictator, and agree with the dictator's assessment and plan as written ,documented as a scribe. Based on total visit time, I have performed more than 50% of the visit. Objective - Vital Signs Vital signs: Vital Signs Temp 97.8 F 05/19/22 03:35 Pulse 66 05/19/22 08:34 Resp 18 05/19/22 03:35 BP 141/66 05/19/22 03:35 Pulse Ox 96 05/19/22 03:35 FiO2 Intake & Output 05/18/22 05/19/22 05/19/22 18:59 06:59 18:59 Intake Total 540 240 180 Output Total 1775 Balance 540 -1535 180 Intake: Oral 540 240 180 Output: Urine 1775 Other: Voiding Method Indwelling Catheter Indwelling Catheter - Labs CBC & Chem 7: 05/19/22 07:16 05/19/22 07:16 Labs: Abnormal Lab Results - Last 24 Hours (Table) 05/18/22 05/18/22 05/18/22 Range/Units 12:04 16:48 19:56 RBC (4.30-5.90) m/uL Hgb (13.0-17.5) gm/dL Hct (39.0-53.0) % Plt Count (150-450) k/uL Neutrophils # (1.3-7.7) k/uL Lymphocytes # (1.0-4.8) k/uL Chloride (98-107) mmol/L Carbon Dioxide (22-30) mmol/L BUN (9-20) mg/dL Creatinine (0.66-1.25) mg/dL Glucose (74-99) mg/dL POC Glucose (mg/dL) 299 H 296 H 317 H (70-110) mg/dL Calcium (8.4-10.2) mg/dL Alkaline Phosphatase (38-126) U/L Total Protein (6.3-8.2) g/dL Albumin (3.5-5.0) g/dL 05/19/22 05/19/22 05/19/22 Range/Units 05:58 07:16 07:16 RBC 2.89 L (4.30-5.90) m/uL Hgb 8.8 L (13.0-17.5) gm/dL Hct 27.8 L (39.0-53.0) % Plt Count 105 L (150-450) k/uL Neutrophils # 9.6 H (1.3-7.7) k/uL Lymphocytes # 0.5 L (1.0-4.8) k/uL Chloride 109 H (98-107) mmol/L Carbon Dioxide 20 L (22-30) mmol/L BUN 114 H* (9-20) mg/dL Creatinine 2.84 H (0.66-1.25) mg/dL Glucose 323 H (74-99) mg/dL POC Glucose (mg/dL) 331 H (70-110) mg/dL Calcium 6.9 L (8.4-10.2) mg/dL Alkaline Phosphatase 130 H (38-126) U/L Total Protein 5.9 L (6.3-8.2) g/dL Albumin 2.8 L (3.5-5.0) g/dL
[2022-05-19] MEDS: ACETAMINOPHEN TAB 325 MG TAB PO PRN (14:26)
[2022-05-19] MEDS ORDERED: HYDROcodone/APAP 5-325MG 1 EACH TAB PO STA (15:42)
[2022-05-19] MEDS ORDERED: MORPHINE SULFATE 2 MG/ML SYRINGE IVP STA (16:22)
[2022-05-19] MEDS ORDERED: MORPHINE SULFATE 2 MG/ML SYRINGE ONE (16:24)
--- NOTE | 2022-05-19 16:42 | P.PN ---
Subjective Progress Note Date: 05/19/22 81-year-old male with gross hematuria and urinary retention currently being managed with a Mcgovern catheter. Hematuria most likely secondary to traumatic Mcgovern insertion. Patient catheter this morning and has been unable to void with a postvoid residual of [address] mL[address] Mcgovern catheter by nursing wasn't successful Objective - Vital Signs Vital signs: Vital Signs Temp 97.9 F 05/19/22 12: Pulse 74 05/19/22 12: Resp 16 05/19/22 12:26 BP 136/74 05/19/22 12:26 Pulse Ox 95 05/19/22 12:26 FiO2 Intake & Output 05/18/22 05/19/22 05/19/22 18:59 06:59 18:59 Intake Total 540 240 360 Output Total 1775 250 Balance 540 -1535 110 Weight 86.183 kg Intake: Oral 540 240 360 Output: Urine 1775 250 Other: Voiding Method Indwelling Catheter Indwelling Catheter Indwelling Catheter - Constitutional General appearance: Present: mild distress - Gastrointestinal General gastrointestinal: Present: soft. Absent: distended, tenderness - Psychiatric Psychiatric: Present: A&O x's 3 - Labs CBC & Chem 7: 05/19/22 07:16 05/19/22 07:16 Labs: Abnormal Lab Results - Last 24 Hours (Table) 05/18/22 05/18/22 05/19/22 Range/Units 16:48 19:56 05:58 RBC (4.30-5.90) m/uL Hgb (13.0-17.5) gm/dL Hct (39.0-53.0) % Plt Count (150-450) k/uL Neutrophils # (1.3-7.7) k/uL Lymphocytes # (1.0-4.8) k/uL Chloride (98-107) mmol/L Carbon Dioxide (22-30) mmol/L BUN (9-20) mg/dL Creatinine (0.66-1.25) mg/dL Glucose (74-99) mg/dL POC Glucose (mg/dL) 296 H 317 H 331 H (70-110) mg/dL Calcium (8.4-10.2) mg/dL Alkaline Phosphatase (38-126) U/L Total Protein (6.3-8.2) g/dL Albumin (3.5-5.0) g/dL 05/19/22 05/19/22 05/19/22 Range/Units 07:16 07:16 11:49 RBC 2.89 L (4.30-5.90) m/uL Hgb 8.8 L (13.0-17.5) gm/dL Hct 27.8 L (39.0-53.0) % Plt Count 105 L (150-450) k/uL Neutrophils # 9.6 H (1.3-7.7) k/uL Lymphocytes # 0.5 L (1.0-4.8) k/uL Chloride 109 H (98-107) mmol/L Carbon Dioxide 20 L (22-30) mmol/L BUN 114 H* (9-20) mg/dL Creatinine 2.84 H (0.66-1.25) mg/dL Glucose 323 H (74-99) mg/dL POC Glucose (mg/dL) 403 H (70-110) mg/dL Calcium 6.9 L (8.4-10.2) mg/dL Alkaline Phosphatase 130 H (38-126) U/L Total Protein 5.9 L (6.3-8.2) g/dL Albumin 2.8 L (3.5-5.0) g/dL Assessment and Plan Assessment: Attempted to place a coud catheter wasn't successful, resistance was met at the level of the external sphincter. 16 Fr Catheter was placed over a Glidewire. -Hold anticoagulation -Recommend keeping the catheter in place for at least 1 week. If patient is discharged prior to that time can follow-up with Dr. Márquez as an outpatient for trial of void. -Irrigate the catheter when necessary for hematuria
--- NOTE | 2022-05-19 16:44 | P.PCN ---
Date of Procedure: 05/19/22 Preoperative Diagnosis: Gross hematuria Postoperative Diagnosis: Same Procedure(s) Performed: Catheter insertion over a wire, bladder irrigation Description of Procedure: Patient penis was prepped in sterile fashion. Initially I attempted to place a 18 and 16-Trinidadian coud catheter which was unsuccessful. I was able to place a 14-Trinidadian catheter. But on attempting irrigate the catheter there was clots within the bladder which made irrigation using a 14-Trinidadian catheter very difficult. At this time a Glidewire was advanced through the meatus into the bladder. I was able to place a 16-Trinidadian Mcgovern catheter over the wire. The catheter was irrigated and approximately 400 mL hematuric urine obtained and 50 mL of clots was irrigated out. Patient tolerated procedure well
[2022-05-19 16:49] LABS: Glucose,Whole Blood 158 mg/dL (70-110)
[2022-05-19 19:51] LABS: Glucose,Whole Blood 172 mg/dL (70-110)
[2022-05-19] MEDS: QUEtiapine 25 MG TAB PO SCH (21:25)
[2022-05-20 05:53] LABS: Glucose,Whole Blood 459 mg/dL (70-110)
[2022-05-20] MEDS: methylPREDNISolone SOD SUCCI 125 MG/2 ML VIAL IV SCH ×3 (06:16→17:13)
[2022-05-20] MEDS: INSULIN ASPART (NovoLOG) 100 UNIT/ML VIAL SQ SCH ×4 (06:17→21:07)
[2022-05-20] MEDS: LEVOTHYROXINE 100 MCG TAB PO SCH (06:17)
[2022-05-20] MEDS: IPRATROPIUM-ALBUTEROL 3 ML NEB INHALATION SCH ×4 (08:03→19:27)
[2022-05-20] MEDS: SYMBICORT 160-4.5 MCG INHALER INHALATION SCH ×2 (08:03→19:27)
[2022-05-20] MEDS: AMIODARONE 200 MG TAB PO SCH ×2 (08:38→21:14)
[2022-05-20] MEDS: TAMSULOSIN 0.4 MG CAP.ER.24H PO SCH (08:38)
[2022-05-20] MEDS: POTASSIUM CHLORIDE ER 20 MEQ TAB.ER PO SCH (08:38)
[2022-05-20] MEDS: SODIUM BICARBONATE TAB 650 MG TAB PO SCH ×2 (08:38→21:14)
[2022-05-20] MEDS: FAMOTIDINE 20 MG TAB PO SCH (08:38)
[2022-05-20] MEDS: METOPROLOL SUCCINATE (ER) 50 MG TAB.ER.24H PO SCH (08:38)
[2022-05-20] MEDS: INSULIN DETEMIR (LEVEMIR) 100 UNIT/ML SYR SQ SCH ×2 (08:38→21:15)
[2022-05-20 08:40] LABS: Basophils % (A) 0 %; Eosinophils % (A) 0 %; HCT 24.8 % (39.0-53.0); HGB 7.7 gm/dL (13.0-17.5); Hypochromasia Moderate; Lymphocytes # (A) 0.5 k/uL (1.0-4.8); Lymphocytes % (A) 4 %; MCH 30.3 pg (25.0-35.0); MCHC 31.1 g/dL (31.0-37.0); MCV 97.2 fL (80.0-100.0); Mean Platelet Volume 9.6; Monocytes # (A) 0.2 k/uL (0-1.0); Monocytes % (A) 2 %; Neutrophils # (A) 11.8 k/uL (1.3-7.7); Neutrophils % (A) 94 %; Platelet Count 111 k/uL (150-450); RBC 2.55 m/uL (4.30-5.90); RDW 13.4 % (11.5-15.5); WBC 12.6 k/uL (3.8-10.6)
[2022-05-20 08:47] LABS: Potassium 4.9 mmol/L (3.5-5.1)
--- NOTE | 2022-05-20 09:15 | P.PN ---
Subjective Progress Note Date: 05/20/22 The patient is an 81-year-old male with a past medical history significant for COPD, CHF, ischemic cardiomyopathy, coronary artery disease, diabetes mellitus, hyperlipidemia, hypertension, urinary tract infections, CKD stage IIIB, and nephrolithiasis. He presented to the emergency department on 05/11/22 with shortness of breath. The patient tested positive for RSV and is being followed by the pulmonary service. The patient also went into A flutter with RVR with a heart rate of 150. Cardiology was consulted and he was given amiodarone and Cardizem. He has had a non-STEMI likely type II mechanism related to the a flutter with RVR. He also has an acute on chronic kidney injury for which nephrology is following. UA shows trace protein and large WBCs. Abdominal/bladder ultrasound shows moderate hydronephrosis bilaterally and urology was consulted for this reason.The patient's bilateral hydronephrosis was likely to be caused by his urinary retention. Hematuria most likely caused by traumatic insertion of Mcgovern catheter. 05/19 The patient's Mcgovern catheter was removed this morning and he has been unable to void with a postvoid residual of [address] Mcgovern catheter by nursing staff was unsuccessful. Dr. Willoughby attempted to place a 18 and 16-Emirati coud catheter which was also unsuccessful. He was able to place a 14-Emirati catheter, but on attempting to irrigate the catheter there were clots within the bladder which made irrigation very difficult. At that time a G lidewire was advanced into the bladder and a 16-Emirati Mcgovern catheter was able to be placed over the wire. The catheter then was irrigated and approximately 400 mL hematuric urine was obtained and 50 mL clot was irrigated out. Objective - Vital Signs Vital signs: Vital Signs Temp 96.9 F L 05/20/22 03:48 Pulse 84 05/20/22 08:53 Resp 17 05/20/22 08:42 BP 119/56 05/20/22 08:42 Pulse Ox 96 05/20/22 08:42 FiO2 Intake & Output 05/19/22 05/20/22 05/20/22 18:59 06:59 18:59 Intake Total 600 118 Output Total 950 1000 Balance -350 -882 Weight 86.183 kg Intake: Oral 600 118 Output: Urine 950 1000 Other: Voiding Method Indwelling Catheter Indwelling Catheter Indwelling Catheter - Exam General: No acute distress. Chronically ill appearing HEENT: Head is atraumatic, normocephalic. Abdomen/GI: Soft. No abdominal tenderness. : Mcgovern catheter in place draining dark red urine with clots Skin: Warm and dry Neurologic: Awake, alert and oriented times 3. - Labs CBC & Chem 7: 05/21/22 07:38 05/21/22 07:38 Labs: Abnormal Lab Results - Last 24 Hours (Table) 05/19/22 05/19/22 05/19/22 Range/Units 11:49 16:48 19:49 WBC (3.8-10.6) k/uL RBC (4.30-5.90) m/uL Hgb (13.0-17.5) gm/dL Hct (39.0-53.0) % Plt Count (150-450) k/uL Neutrophils # (1.3-7.7) k/uL Lymphocytes # (1.0-4.8) k/uL POC Glucose (mg/dL) 403 H 158 H 172 H (70-110) mg/dL 05/20/22 05/20/22 Range/Units 05:52 07:21 WBC 12.6 H (3.8-10.6) k/uL RBC 2.55 L (4.30-5.90) m/uL Hgb 7.7 L (13.0-17.5) gm/dL Hct 24.8 L (39.0-53.0) % Plt Count 111 L (150-450) k/uL Neutrophils # 11.8 H (1.3-7.7) k/uL Lymphocytes # 0.5 L (1.0-4.8) k/uL POC Glucose (mg/dL) 459 H (70-110) mg/dL Assessment and Plan Assessment: The patient is afebrile, vital signs are stable, and he is on 3 L O2 via nasal cannula. The patient is resting in bed and appears comfortable. He denies any pain or discomfort. His Mcgovern catheter is draining dark red urine with clots. (1) Acute urinary retention Current Visit: No Status: Acute Code(s): R33.8 - OTHER RETENTION OF URINE SNOMED Code(s): 054929160 Plan: - Continue to hold anticoagulation - Continue Flomax - Recommend keeping the catheter in place for at least one week. If patient is discharged prior to that time he can follow up with Dr. Márquez as outpatient for trial of void. - Irrigate the catheter PRN Impression and plan of care have been directed as dictated by the signing physician. Sue Chauhan nurse practitioner acting as scribe for signing physician. Sue Chauhan [facility] Palliative Care/Urology Spectralink [phone] Email: [email or web address] I personally performed and participated in the history, physical, the decision making, I agree with the assessment and plan of [employer] WORKER
[2022-05-20 11:58] LABS: Glucose,Whole Blood 450 mg/dL (70-110)
--- NOTE | 2022-05-20 12:36 | P.PN ---
Subjective Patient is seen in follow-up for acute kidney injury on chronic kidney disease. Renal function fairly stable. Has Mcgovern catheter for urinary retention. Nonoliguric. Oral intake is fair. Doesn't like the food in the hospital. Vital signs are stable. General: Awake. No acute distress. HEENT: Head exam is unremarkable. LUNGS: Breath sounds decreased. HEART: Rate and Rhythm are regular. ABDOMEN: Soft, no distention. EXTREMITITES: Trace edema. Objective - Vital Signs Vital signs: Vital Signs Temp 96.9 F L 05/20/22 03:48 Pulse 61 05/20/22 12:20 Resp 18 05/20/22 12:01 BP 129/79 05/20/22 12:20 Pulse Ox 97 05/20/22 12:20 FiO2 Intake & Output 05/19/22 05/20/22 05/20/22 18:59 06:59 18:59 Intake Total 600 118 Output Total 950 1000 Balance -350 -882 Weight 86.183 kg Intake: Oral 600 118 Output: Urine 950 1000 Other: Voiding Method Indwelling Catheter Indwelling Catheter Indwelling Catheter # Bowel Movements 1 - Labs CBC & Chem 7: 05/20/22 07:21 05/20/22 07:21 Labs: Abnormal Lab Results - Last 24 Hours (Table) 05/19/22 05/19/22 05/20/22 Range/Units 16:48 19:49 05:52 WBC (3.8-10.6) k/uL RBC (4.30-5.90) m/uL Hgb (13.0-17.5) gm/dL Hct (39.0-53.0) % Plt Count (150-450) k/uL Neutrophils # (1.3-7.7) k/uL Lymphocytes # (1.0-4.8) k/uL Chloride (98-107) mmol/L BUN (9-20) mg/dL Creatinine (0.66-1.25) mg/dL Glucose (74-99) mg/dL POC Glucose (mg/dL) 158 H 172 H 459 H (70-110) mg/dL Calcium (8.4-10.2) mg/dL 05/20/22 05/20/22 05/20/22 Range/Units 07:21 07:21 11:56 WBC 12.6 H (3.8-10.6) k/uL RBC 2.55 L (4.30-5.90) m/uL Hgb 7.7 L (13.0-17.5) gm/dL Hct 24.8 L (39.0-53.0) % Plt Count 111 L (150-450) k/uL Neutrophils # 11.8 H (1.3-7.7) k/uL Lymphocytes # 0.5 L (1.0-4.8) k/uL Chloride 108 H (98-107) mmol/L BUN 119 H* (9-20) mg/dL Creatinine 2.95 H (0.66-1.25) mg/dL Glucose 394 H (74-99) mg/dL POC Glucose (mg/dL) 450 H (70-110) mg/dL Calcium 7.0 L (8.4-10.2) mg/dL Assessment and Plan Plan: Assessment: 1. Acute kidney injury secondary to obstructive uropathy. Creatinine peaked at 3.28 this admission and is 2.95 today. Nonoliguric. Disproportionately elevated BUN due to steroids. 2. Urinary retention. Has Mcgovern catheter. On Flomax. Urology following. 3. Chronic kidney disease stage IIIB secondary to diabetic kidney disease with baseline creatinine near 2. 4. Diabetes mellitus. 5. Metabolic acidosis secondary to acute kidney injury on oral bicarbonate. Better. 6. Chronic systolic CHF with ejection fraction of 40-45% with mild to moderate mitral regurgitation. 7. Hypokalemia from poor intake and steroids. Replaced. Improved. Plan: Stop potassium supplementation. Check iron studies. Encourage oral intake. Avoid nephrotoxins. Continue to monitor renal function and urine output.
[2022-05-20 13:46] LABS: Glucose,Whole Blood 447 mg/dL (70-110)
[2022-05-20 13:46] LABS: Glucose,Whole Blood 459 mg/dL (70-110)
[2022-05-20] MEDS ORDERED: INSULIN ASPART (NovoLOG) 100 UNIT/ML VIAL SQ ONE (14:06)
[2022-05-20] MEDS ORDERED: DEXTROSE 50% SYRINGE 50 ML IVP PRN ×2 (15:53)
[2022-05-20] MEDS ORDERED: INSULIN REGULAR 100 UNIT in SODIUM CHLORIDE 0.9% 100 ML IV SCH (16:00)
[2022-05-20 16:01] LABS: Glucose,Whole Blood 377 mg/dL (70-110)
[2022-05-20 17:45] LABS: Glucose,Whole Blood 353 mg/dL (70-110)
[2022-05-20 18:35] LABS: % Iron Saturation 64.94 (15.00-50.00)
[2022-05-20 19:00] LABS: Glucose,Whole Blood 224 mg/dL (70-110)
[2022-05-20 19:54] LABS: Glucose,Whole Blood 191 mg/dL (70-110)
[2022-05-20 21:14] LABS: Glucose,Whole Blood 195 mg/dL (70-110)
[2022-05-20] MEDS: QUEtiapine 25 MG TAB PO SCH (21:14)
[2022-05-20 22:16] LABS: Glucose,Whole Blood 139 mg/dL (70-110)
[2022-05-21] MEDS: methylPREDNISolone SOD SUCCI 125 MG/2 ML VIAL IV SCH (00:11)
[2022-05-21 00:15] LABS: Glucose,Whole Blood 137 mg/dL (70-110)
--- NOTE | 2022-05-21 01:35 | P.PN ---
Subjective Progress Note Date: 05/20/22 81-year-old male came in with complaints of shortness of breath patient does have extensive history does have history of sick sinus syndrome history of coronary artery disease CABG patient has a wheezing on exam. Patient is requiring oxygen usually doesn't use oxygen at home patient has some wheezing on exam patient is found to have C. Sepsis from RSV. Patient is also on heart failure exacerbation with elevated BNP elevated JVD. Patient has chronic diastolic dysfunction. 05/12/2022 Patient is seen and evaluated in follow-up with pulmonary following a currently maintained on 2 L via nasal cannula and continues with significant wheezing. Patient was maintained on IV steroids and increased per pulmonary's patient continues to have significant wheezing on exam. Patient does not normally wear oxygen the outpatient setting and recommended to wean FiO2 as tolerated. Patient also being treated with IV Lasix for CHF with diastolic dysfunction acute exacerbation. Denies chest pain or palpitations and reports no significant improvement in shortness of breath as of yet. Patient encouraged increased activity as tolerated. Patient also having extremely elevated blood sugars most likely steroid effect and will continue sliding scale and will also start long-acting. Will change diet to consistent carb. Recommend continued monitoring of Accu-Cheks before meals and at bedtime. Will follow-up with repeat labs in the a.m. 05/13/2022 Patient is seen in follow-up today much more lethargic although arousable. Patient had an episode of atrial flutter with RVR and transferred to stepdown unit placed on IV heparin along with Cardizem. Troponin drawn up to 22 with associated chest pain and cardiology considering most likely type II myocardial infarction secondary to atrial flutter. Repeat 2-D echo is ordered and pending. Patient also continues with RSV currently on 2-3 L via nasal cannula. Patient appears dyspneic and working to breathe during exam. Patient also continuing wi th some increased confusion likely metabolic encephalopathy his kidney functions are worsening and nephrology on consult now. Patient being started on IV Lasix twice daily. Chest x-ray shows no overt failure. Concern of jump in white count appears most likely reactive secondary to IV steroids. Patient is on high-dose IV steroids with pulmonary and also cardiology following. Patient continues on oral Zithromax. Patient is also extremely high risk for aspiration recommend head of the bed elevated 45 at all times and strict aspiration precautions. 05/14/2022 Patient is seen and evaluated in follow-up today mentation appears improved and patient was given Seroquel last night. We'll continue at night. Patient being followed by pulmonary along with cardiology currently maintained on oral amiodarone along with IV heparin. Patient is currently atrial paced rhythm. Patient is maintained on oxygen at 3 L although needs frequent reorientation to continue to wear it as he takes it off frequently. Patient reports he is eating although fair and blood sugars being monitored. Patient was nothing by mouth for cardiology although has been eating now and blood sugars are rising although patient was feeling his blood sugars were low and refusing insulin. Patient is also continued on high-dose IV steroids recommend to continue with Accu-Cheks before meals and at bedtime with sliding scale and have decreased the long- acting as patient appears to be dropping blood sugars every night. Patient with significant weakness recommend physical therapy evaluation. Nephrology following as well and patient was given sodium bicarb and now on tablets as kidney functions are worsening recommending indwelling Mcgovern catheter. Patient is continued on IV Lasix for CHF. Patient is currently afebrile denies worsening shortness of breath or any chest pain today. No reports of nausea or vomiting noted. 05/15/2022 Patient is seen and evaluated follow-up currently sitting up in the chair being followed by multiple medical consultations including nephrology, cardiology, and pulmonary. Urology is consulted as patient is noted to have hematuria in the Mcgovern catheter. Most likely traumatic due to insertion of Mcgovern catheter and hemoglobin is stable above 9. Patient was also maintained on IV heparin for atrial flutter with RVR and being transitioned oral anticoagulant. Patient cont inues to be diuresed on IV Lasix with nephrology recommending to continue with follow-up labs and kidney functions continued to worsen. Potassium found to be critically low at 2.9 and will replace per protocol recommend repeat labs. Patient is currently afebrile denies chest pain or worsening shortness of breath. Discussed with family about CODE STATUS and also treatment plan along with discharge planning and recommended PT/OT evaluation for possible ECF. 05/16/2022 Patient is seen and evaluated in follow-up with nephrology, pulmonary, cardiology following currently sitting up in the chair more awake and alert today. Patient is maintained on 3 L of oxygen via nasal cannula along with D uoNeb treatments and IV steroids. Recommend to monitor blood sugars closely and will adjust the medications as patient is eating more and steroids are being titrated down. Patient has been on IV Lasix twice daily along with oral amiodarone currently rate controlled. Cardiology following as needed. Recommend telemetry monitoring. Patient has been also transitioned off IV heparin on to Eliquis . Nephrology following as well for worsening kidney functions with an elevated BUN of 106, creatinine slightly improved at 3.11 and potassium found to be 3.2 after replacement and will replace per protocol. recommend daily supplementation of potassium which will be added.. 05/19/2022 Patient is seen and evaluated in follow-up maintained off IV diuretics along with IV fluids with nephrology, pulmonary, cardiology following closely. Patient reports to feeling somewhat improved and extremely anxious about wanting to go home and get out of the hospital. Patient with significant weakness will be going to ECF and due to the holiday there is difficulties obtaining insurance authorization to accommodate ECF transfer today. Patient is to continue on oral amiodarone twice a day for the next week and then transitioned down to daily per cardiology recommendations and is maintained on oral anticoagulation. Patient tolerating diet with no reports of nausea or vomiting noted. Patient continues with elevated kidney functions and will continue with indwelling Mcgovern catheter. Recommend repeat labs in the a.m. Encouraged increased activity as tolerated. Afebrile. 05/20/2022 Patient is seen and evaluated in follow-up this morning continues to be extremely weak with case management following and has been accepted in ECF. Consultations have cleared the patient for discharge with outpatient follow-up. Nephrology following and kidney functions elevated although appear stable and will continue with indwelling Mcgovern catheter. Patient will need close outpatient follow-up with urology along with nephrology and follow-up labs. Patient to continue on amiodarone and other cardiac medications with cardiac follow-up on discharge. Patient with elevated blood sugars maintained on IV st eroids and will decrease the rate and also initiate insulin drip for close glycemic control and will resume subcutaneous insulin once blood sugars are maintained under 200. Patient is currently afebrile denies chest pain or shortness of breath. Patient is continued on 3 L via nasal cannula. Patient is tolerating diet with no reports of nausea or vomiting noted. PHYSICAL EXAMINATION: GENERAL: The patient is alert and oriented x3. Thin built, ill-appearing, cachectic, extremely elderly-appearing HEENT: Pupils are round and equally reacting to light. EOMI. No scleral icterus. No conjunctival pallor. Normocephalic, atraumatic. No pharyngeal erythema. No thyromegaly. CARDIOVASCULAR: S1 and S2 muffled PULMONARY: Diminished breath sounds bilaterally with some scattered rhonchi at the bases noted on exam ABDOMEN: Soft, nontender, nondistended, normoactive bowel sounds. No palpable organomegaly. MUSCULOSKELETAL: No joint swelling or deformity. EXTREMITIES: No cyanosis, clubbing, or pedal edema. NEUROLOGICAL: Gross neurological examination did not reveal any focal deficits. Diffusely weak SKIN: No rashes. Assessment: -Acute hypoxic respiratory failure secondary to COPD exacerbation and RSV infection -Acute renal failure on chronic kidney disease stage V acute renal failure secondary to hypovolemia, worsening and being placed on sodium bicarb tablets -Acute atrial flutter with RVR, currently rate controlled -Hematuria, most likely due to trauma from insertion of Mcgovern catheter while being maintained on IV heparin, improved -Elevated troponin, possibly type II myocardial infarction secondary to atrial flutter -Hyperchloremic metabolic acidosis secondary to IV fluids, improved -Hyperkalemia secondary to IV fluids, now hypokalemia, improved -Congestive heart failure acute on chronic chronic systolic dysfunction with acute exacerbation, EF is 40-45% -History of Coronary artery disease status post CABG -benign prostatic hypertrophy -hypertension -Diabetes mellitus , type II uncontrolled with elevated blood sugars secondary to systemic steroids -Hypertension -History of ulcerative colitis presently not on any medications -Anemia of chronic disease -DVT prophylaxis: on eliquis -No code Plan: Recommend to continue current medications and management with pulmonary following. Patient continues on high-dose steroids and will consider transitioning down and to oral steroids on discharge. Wean FiO2 as tolerated. Patient remains on 3 L via nasal cannula Recommend continuing Accu-Cheks before meals and at bedtime and will initiate insulin drip as patient's blood sugars are uncontrolled and over 400 today. Have attempted increased sliding scale coverage along with making long acting twice a day and will resume once blood sugars are maintained under 200. Encouraged oral intake and recommend dysphagia chopped diet as patient has missing teeth and difficulty chewing. Patient with atrial flutter with RVR and cardiology following and placed on eliquis along with oral amiodarone and will follow as needed Recommend repeat labs in the a.m. and continue to monitor kidney functions in output Encouraged to increase activity as tolerated and physical therapy recommending ECF. Patient now agreeable with case management following and working on [employer] Discharge planning in process was possible discharge in 24 hours if blood sugars under better control Due to multiple complex medical issues, Prognosis is guarded Possible discharge in 24 hours The impression and plan of care has been dictated by Yaquelin Frances, Nurse Practitioner as directed. Dr. Jaime MD I have performed a history and examination and MDM of this patient, discussed the same with the dictator, and agree with the dictator's assessment and plan as written ,documented as a scribe. Based on total visit time, I have performed more than 50% of the visit. Objective - Vital Signs Vital signs: Vital Signs Temp 96.9 F L 05/20/22 03:48 Pulse 61 05/20/22 12:20 Resp 18 05/20/22 12:01 BP 129/79 05/20/22 12:20 Pulse Ox 97 05/20/22 12:20 FiO2 Intake & Output 05/19/22 05/20/22 05/20/22 18:59 06:59 18:59 Intake Total 600 118 Output Total 950 1000 Balance -350 -882 Weight 86.183 kg Intake: Oral 600 118 Output: Urine 950 1000 Other: Voiding Method Indwelling Catheter Indwelling Catheter Indwelling Catheter # Bowel Movements 1 - Labs CBC & Chem 7: 05/20/22 07:21 05/20/22 07:21 Labs: Abnormal Lab Results - Last 24 Hours (Table) 05/19/22 05/19/22 05/20/22 Range/Units 16:48 19:49 05:52 WBC (3.8-10.6) k/uL RBC (4.30-5.90) m/uL Hgb (13.0-17.5) gm/dL Hct (39.0-53.0) % Plt Count (150-450) k/uL Neutrophils # (1.3-7.7) k/uL Lymphocytes # (1.0-4.8) k/uL Chloride (98-107) mmol/L BUN (9-20) mg/dL Creatinine (0.66-1.25) mg/dL Glucose (74-99) mg/dL POC Glucose (mg/dL) 158 H 172 H 459 H (70-110) mg/dL Calcium (8.4-10.2) mg/dL 05/20/22 05/20/22 05/20/22 Range/Units 07:21 07:21 11:56 WBC 12.6 H (3.8-10.6) k/uL RBC 2.55 L (4.30-5.90) m/uL Hgb 7.7 L (13.0-17.5) gm/dL Hct 24.8 L (39.0-53.0) % Plt Count 111 L (150-450) k/uL Neutrophils # 11.8 H (1.3-7.7) k/uL Lymphocytes # 0.5 L (1.0-4.8) k/uL Chloride 108 H (98-107) mmol/L BUN 119 H* (9-20) mg/dL Creatinine 2.95 H (0.66-1.25) mg/dL Glucose 394 H (74-99) mg/dL POC Glucose (mg/dL) 450 H (70-110) mg/dL Calcium 7.0 L (8.4-10.2) mg/dL 05/20/22 05/20/22 Range/Units 13:44 13:45 WBC (3.8-10.6) k/uL RBC (4.30-5.90) m/uL Hgb (13.0-17.5) gm/dL Hct (39.0-53.0) % Plt Count (150-450) k/uL Neutrophils # (1.3-7.7) k/uL Lymphocytes # (1.0-4.8) k/uL Chloride (98-107) mmol/L BUN (9-20) mg/dL Creatinine (0.66-1.25) mg/dL Glucose (74-99) mg/dL POC Glucose (mg/dL) 447 H 459 H (70-110) mg/dL Calcium (8.4-10.2) mg/dL
[2022-05-21 02:00] LABS: Glucose,Whole Blood 141 mg/dL (70-110)
[2022-05-21 04:05] VITALS: TEMP 97.3
[2022-05-21 04:07] LABS: Glucose,Whole Blood 134 mg/dL (70-110)
[2022-05-21 06:19] LABS: Glucose,Whole Blood 142 mg/dL (70-110)
--- NOTE | 2022-05-21 06:41 | PN ---
PROGRESS NOTE SUBJECTIVE: Mr. Pinto is a gentleman with COPD and RSV infection. He is doing somewhat better this morning. He has no chest pain. His shortness of breath appears to be stable. He has history of CAD, prior bypass surgery, ischemic cardiomyopathy, status post ICD. However, he is not in any distress today. He feels better. Plan is to continue his current medical regimen. He has what seems to be a [id number] NM-type picture. I am recommending that we will continue amiodarone as advised by Dr. Beatty with reduced taper to 200 mg daily from May 25, increase activity, and he can be discharged whenever it is okay with the admitting doctor. He has ischemic cardiomyopathy and heart failure symptoms have improved. His creatinine also shows some modest improvement. Plan is to continue current medical regimen, increase activity, and he can be discharged. PHYSICAL EXAMINATION: VITALS: Stable. NECK: There is JVD, 1 cm. No carotid bruit. HEART: S1, S2 heard normally with irregular rhythm. LUNGS: Reveal diminished air entry. ABDOMEN: Unchanged. LOWER EXTREMITY: Unchanged. CENTRAL NERVOUS SYSTEM: Limited exam was performed. No significant deficits. MMODL / IJN: [id number] /
[2022-05-21] MEDS: LEVOTHYROXINE 100 MCG TAB PO SCH (06:44)
[2022-05-21] MEDS: TAMSULOSIN 0.4 MG CAP.ER.24H PO SCH (06:44)
[2022-05-21] MEDS: INSULIN ASPART (NovoLOG) 100 UNIT/ML VIAL SQ SCH ×3 (06:44→17:15)
[2022-05-21] MEDS: IPRATROPIUM-ALBUTEROL 3 ML NEB INHALATION SCH ×3 (07:34→16:07)
[2022-05-21] MEDS: SYMBICORT 160-4.5 MCG INHALER INHALATION SCH (07:34)
[2022-05-21] MEDS ORDERED: predniSONE 20 MG TAB PO SCH (09:00)
[2022-05-21 09:09] LABS: Calcium 7.2 mg/dL (8.4-10.2); Magnesium 2.2 mg/dL (1.6-2.3); Potassium 5.7 mmol/L (3.5-5.1)
[2022-05-21] MEDS: METOPROLOL SUCCINATE (ER) 50 MG TAB.ER.24H PO SCH (09:41)
[2022-05-21] MEDS: AMIODARONE 200 MG TAB PO SCH (09:41)
[2022-05-21] MEDS: SODIUM BICARBONATE TAB 650 MG TAB PO SCH (09:41)
[2022-05-21] MEDS: INSULIN DETEMIR (LEVEMIR) 100 UNIT/ML SYR SQ SCH (09:41)
[2022-05-21] MEDS: FAMOTIDINE 20 MG TAB PO SCH (09:41)
[2022-05-21 09:52] VITALS: RESP 17
--- NOTE | 2022-05-21 10:04 | P.PN ---
Subjective Progress Note Date: 05/21/22 The patient is an 81-year-old male with a past medical history significant for COPD, CHF, ischemic cardiomyopathy, coronary artery disease, diabetes mellitus, hyperlipidemia, hypertension, urinary tract infections, CKD stage IIIB, and nephrolithiasis. He presented to the emergency department on 05/11/22 with shortness of breath. The patient tested positive for RSV and is being followed by the pulmonary service. The patient also went into A flutter with RVR with a heart rate of 150. Cardiology was consulted and he was given amiodarone and Cardizem. He has had a non-STEMI likely type II mechanism related to the a flutter with RVR. He also has an acute on chronic kidney injury for which nephrology is following. UA shows trace protein and large WBCs. Abdominal/bladder ultrasound shows moderate hydronephrosis bilaterally and urology was consulted for this reason.The patient's bilateral hydronephrosis was likely to be caused by his urinary retention. Hematuria most likely caused by traumatic insertion of Mcgovern catheter. 05/19 The patient's Mcgovern catheter was removed this morning and he has been unable to void with a postvoid residual of [address] Mcgovern catheter by nursing staff was unsuccessful. Dr. Willoughby attempted to place a 18 and 16-Slovenian coud catheter which was also unsuccessful. He was able to place a 14-Slovenian catheter, but on attempting to irrigate the catheter there were clots within the bladder which made irrigation very difficult. At that time a G lidewire was advanced into the bladder and a 16-Slovenian Mcgovern catheter was able to be placed over the wire. The catheter then was irrigated and approximately 400 mL hematuric urine was obtained and 50 mL clot was irrigated out. Objective - Vital Signs Vital signs: Vital Signs Temp 97.3 F L 05/21/22 04:00 Pulse 64 05/21/22 09:52 Resp 17 05/21/22 09:52 BP 119/58 05/21/22 09:52 Pulse Ox 94 L 05/21/22 09:52 FiO2 Intake & Output 05/20/22 05/21/22 05/21/22 18:59 06:59 18:59 Intake Total 10.75 25.331 Output Total 850 500 Balance -839.25 -474.669 Intake: Intake, IV Titration 10.75 25.331 Amount Insulin Regular 100 unit 10.75 25.331 In Sodium Chloride 0.9% 100 ml @ Titrate IV .Q0M [facility] Rx#:[id number] Output: Urine 850 500 Other: Voiding Method Indwelling Catheter Indwelling Catheter # Bowel Movements 1 - Exam General: No acute distress. Chronically ill appearing HEENT: Head is atraumatic, normocephalic. Abdomen/GI: Soft. No abdominal tenderness. : Mcgovern catheter in place draining dark red urine Skin: Warm and dry Neurologic: Awake, alert and oriented times 3. - Labs CBC & Chem 7: 05/21/22 07:38 05/21/22 07:38 Labs: Abnormal Lab Results - Last 24 Hours (Table) 05/20/22 05/20/22 05/20/22 Range/Units 07:20 07:21 11:56 Potassium (3.5-5.1) mmol/L Chloride (98-107) mmol/L Carbon Dioxide (22-30) mmol/L BUN (9-20) mg/dL Creatinine (0.66-1.25) mg/dL Glucose (74-99) mg/dL POC Glucose (mg/dL) 450 H (70-110) mg/dL Hemoglobin A1c 10.4 H (0.0-6.0) % Calcium (8.4-10.2) mg/dL TIBC 169 L (228-460) ug/dL % Saturation 64.94 H (15.00-50.00) Transferrin 121.0 L (204.0-354.0) mg/dL Ferritin 1695.0 H (22.0-322.0) ng/mL 05/20/22 05/20/22 05/20/22 Range/Units 13:44 13:45 15:58 Potassium (3.5-5.1) mmol/L Chloride (98-107) mmol/L Carbon Dioxide (22-30) mmol/L BUN (9-20) mg/dL Creatinine (0.66-1.25) mg/dL Glucose (74-99) mg/dL POC Glucose (mg/dL) 447 H 459 H 377 H (70-110) mg/dL Hemoglobin A1c (0.0-6.0) % Calcium (8.4-10.2) mg/dL TIBC (228-460) ug/dL % Saturation (15.00-50.00) Transferrin (204.0-354.0) mg/dL Ferritin (22.0-322.0) ng/mL 05/20/22 05/20/22 05/20/22 Range/Units 17:41 18:53 19:53 Potassium (3.5-5.1) mmol/L Chloride (98-107) mmol/L Carbon Dioxide (22-30) mmol/L BUN (9-20) mg/dL Creatinine (0.66-1.25) mg/dL Glucose (74-99) mg/dL POC Glucose (mg/dL) 353 H 224 H 191 H (70-110) mg/dL Hemoglobin A1c (0.0-6.0) % Calcium (8.4-10.2) mg/dL TIBC (228-460) ug/dL % Saturation (15.00-50.00) Transferrin (204.0-354.0) mg/dL Ferritin (22.0-322.0) ng/mL 05/20/22 05/20/22 05/21/22 Range/Units 21:13 22:15 00:13 Potassium (3.5-5.1) mmol/L Chloride (98-107) mmol/L Carbon Dioxide (22-30) mmol/L BUN (9-20) mg/dL Creatinine (0.66-1.25) mg/dL Glucose (74-99) mg/dL POC Glucose (mg/dL) 195 H 139 H 137 H (70-110) mg/dL Hemoglobin A1c (0.0-6.0) % Calcium (8.4-10.2) mg/dL TIBC (228-460) ug/dL % Saturation (15.00-50.00) Transferrin (204.0-354.0) mg/dL Ferritin (22.0-322.0) ng/mL 05/21/22 05/21/22 05/21/22 Range/Units 01:59 04:03 06:17 Potassium (3.5-5.1) mmol/L Chloride (98-107) mmol/L Carbon Dioxide (22-30) mmol/L BUN (9-20) mg/dL Creatinine (0.66-1.25) mg/dL Glucose (74-99) mg/dL POC Glucose (mg/dL) 141 H 134 H 142 H (70-110) mg/dL Hemoglobin A1c (0.0-6.0) % Calcium (8.4-10.2) mg/dL TIBC (228-460) ug/dL % Saturation (15.00-50.00) Transferrin (204.0-354.0) mg/dL Ferritin (22.0-322.0) ng/mL 05/21/22 Range/Units 07:38 Potassium 5.7 H (3.5-5.1) mmol/L Chloride 110 H (98-107) mmol/L Carbon Dioxide 21 L (22-30) mmol/L BUN 131 H* (9-20) mg/dL Creatinine 2.90 H (0.66-1.25) mg/dL Glucose 118 H (74-99) mg/dL POC Glucose (mg/dL) (70-110) mg/dL Hemoglobin A1c (0.0-6.0) % Calcium 7.2 L (8.4-10.2) mg/dL TIBC (228-460) ug/dL % Saturation (15.00-50.00) Transferrin (204.0-354.0) mg/dL Ferritin (22.0-322.0) ng/mL Assessment and Plan Assessment: The patient's Mcgovern catheter appears to be draining well. His urine is dark red, but is slightly antiquer in color than yesterday. No clots were noted. The patient denies any abdominal, flank, or suprapubic pain. The patient's last hemoglobin is stable 7.7 on 05/20/22. Patient is on 3 L nasal cannula, his vitals are stable, and he has been afebrile. (1) Acute urinary retention Current Visit: No Status: Acute Code(s): R33.8 - OTHER RETENTION OF URINE SNOMED Code(s): 259572941 Plan: - Monitor hemoglobin - Continue to hold anticoagulation - Continue Flomax - Recommend keeping the catheter in place for at least one week. If patient is discharged prior to that time he can follow up with Dr. Márquez as outpatient for trial of void. - Irrigate the catheter PRN Impression and plan of care have been directed as dictated by the signing physician. Sue Chauhan nurse practitioner acting as scribe for signing physician. Sue Chauhan [facility] Palliative Care/Urology [facility] [address] Email: [email or web address] I personally performed and participated in the history, physical, the decision making, I agree with the assessment and plan of CLEARANCE REP
[2022-05-21 10:45] LABS: Basophils % (A) 0 %; Eosinophils % (A) 0 %; HCT 23.7 % (39.0-53.0); HGB 7.7 gm/dL (13.0-17.5); Lymphocytes # (A) 0.6 k/uL (1.0-4.8); Lymphocytes % (A) 3 %; MCH 30.7 pg (25.0-35.0); MCHC 32.6 g/dL (31.0-37.0); MCV 93.9 fL (80.0-100.0); Mean Platelet Volume 10.8; Monocytes # (A) 0.3 k/uL (0-1.0); Monocytes % (A) 1 %; Neutrophils # (A) 19.3 k/uL (1.3-7.7); Neutrophils % (A) 95 %; Platelet Count 134 k/uL (150-450); RBC 2.52 m/uL (4.30-5.90); RDW 13.4 % (11.5-15.5); WBC 20.3 k/uL (3.8-10.6)
[2022-05-21 11:38] LABS: Glucose,Whole Blood 228 mg/dL (70-110)
[2022-05-21] MEDS ORDERED: SODIUM ZIRCONIUM CYCLOSILICATE 10 GM PACKET PO ONE (12:02)
--- NOTE | 2022-05-21 13:16 | P.PN ---
Subjective Patient is seen in follow-up for acute kidney injury on chronic kidney disease. Renal function stable. Has Mcgovern catheter for urinary retention. Nonoliguric. Oral intake is fair. Doesn't like the food in the hospital. Potassium 5.7 today. Vital signs are stable. General: Awake. No acute distress. HEENT: Head exam is unremarkable. LUNGS: Breath sounds decreased. HEART: Rate and Rhythm are regular. ABDOMEN: Soft, no distention. EXTREMITITES: Trace edema. Objective - Vital Signs Vital signs: Vital Signs Temp 97.3 F L 05/21/22 04:00 Pulse 61 05/21/22 12:40 Resp 17 05/21/22 09:52 BP 152/67 05/21/22 12:40 Pulse Ox 97 05/21/22 12:40 FiO2 Intake & Output 05/20/22 05/21/22 05/21/22 18:59 06:59 18:59 Intake Total 10.75 25.331 Output Total 850 500 500 Balance -839.25 -474.669 -500 Intake: Intake, IV Titration 10.75 25.331 Amount Insulin Regular 100 unit 10.75 25.331 In Sodium Chloride 0.9% 100 ml @ Titrate IV .Q0M [facility] Rx#:[id number] Output: Urine 850 500 500 Other: Voiding Method Indwelling Catheter Indwelling Catheter Indwelling Catheter # Bowel Movements 1 0 - Labs CBC & Chem 7: 05/21/22 07:38 05/21/22 07:38 Labs: Abnormal Lab Results - Last 24 Hours (Table) 05/20/22 05/20/22 05/20/22 Range/Units 07:20 07:21 13:44 WBC (3.8-10.6) k/uL RBC (4.30-5.90) m/uL Hgb (13.0-17.5) gm/dL Hct (39.0-53.0) % Plt Count (150-450) k/uL Neutrophils # (1.3-7.7) k/uL Lymphocytes # (1.0-4.8) k/uL Potassium (3.5-5.1) mmol/L Chloride (98-107) mmol/L Carbon Dioxide (22-30) mmol/L BUN (9-20) mg/dL Creatinine (0.66-1.25) mg/dL Glucose (74-99) mg/dL POC Glucose (mg/dL) 447 H (70-110) mg/dL Hemoglobin A1c 10.4 H (0.0-6.0) % Calcium (8.4-10.2) mg/dL TIBC 169 L (228-460) ug/dL % Saturation 64.94 H (15.00-50.00) Transferrin 121.0 L (204.0-354.0) mg/dL Ferritin 1695.0 H (22.0-322.0) ng/mL 05/20/22 05/20/22 05/20/22 Range/Units 13:45 15:58 17:41 WBC (3.8-10.6) k/uL RBC (4.30-5.90) m/uL Hgb (13.0-17.5) gm/dL Hct (39.0-53.0) % Plt Count (150-450) k/uL Neutrophils # (1.3-7.7) k/uL Lymphocytes # (1.0-4.8) k/uL Potassium (3.5-5.1) mmol/L Chloride (98-107) mmol/L Carbon Dioxide (22-30) mmol/L BUN (9-20) mg/dL Creatinine (0.66-1.25) mg/dL Glucose (74-99) mg/dL POC Glucose (mg/dL) 459 H 377 H 353 H (70-110) mg/dL Hemoglobin A1c (0.0-6.0) % Calcium (8.4-10.2) mg/dL TIBC (228-460) ug/dL % Saturation (15.00-50.00) Transferrin (204.0-354.0) mg/dL Ferritin (22.0-322.0) ng/mL 05/20/22 05/20/22 05/20/22 Range/Units 18:53 19:53 21:13 WBC (3.8-10.6) k/uL RBC (4.30-5.90) m/uL Hgb (13.0-17.5) gm/dL Hct (39.0-53.0) % Plt Count (150-450) k/uL Neutrophils # (1.3-7.7) k/uL Lymphocytes # (1.0-4.8) k/uL Potassium (3.5-5.1) mmol/L Chloride (98-107) mmol/L Carbon Dioxide (22-30) mmol/L BUN (9-20) mg/dL Creatinine (0.66-1.25) mg/dL Glucose (74-99) mg/dL POC Glucose (mg/dL) 224 H 191 H 195 H (70-110) mg/dL Hemoglobin A1c (0.0-6.0) % Calcium (8.4-10.2) mg/dL TIBC (228-460) ug/dL % Saturation (15.00-50.00) Transferrin (204.0-354.0) mg/dL Ferritin (22.0-322.0) ng/mL 05/20/22 05/21/22 05/21/22 Range/Units 22:15 00:13 01:59 WBC (3.8-10.6) k/uL RBC (4.30-5.90) m/uL Hgb (13.0-17.5) gm/dL Hct (39.0-53.0) % Plt Count (150-450) k/uL Neutrophils # (1.3-7.7) k/uL Lymphocytes # (1.0-4.8) k/uL Potassium (3.5-5.1) mmol/L Chloride (98-107) mmol/L Carbon Dioxide (22-30) mmol/L BUN (9-20) mg/dL Creatinine (0.66-1.25) mg/dL Glucose (74-99) mg/dL POC Glucose (mg/dL) 139 H 137 H 141 H (70-110) mg/dL Hemoglobin A1c (0.0-6.0) % Calcium (8.4-10.2) mg/dL TIBC (228-460) ug/dL % Saturation (15.00-50.00) Transferrin (204.0-354.0) mg/dL Ferritin (22.0-322.0) ng/mL 05/21/22 05/21/22 05/21/22 Range/Units 04:03 06:17 07:38 WBC (3.8-10.6) k/uL RBC (4.30-5.90) m/uL Hgb (13.0-17.5) gm/dL Hct (39.0-53.0) % Plt Count (150-450) k/uL Neutrophils # (1.3-7.7) k/uL Lymphocytes # (1.0-4.8) k/uL Potassium 5.7 H (3.5-5.1) mmol/L Chloride 110 H (98-107) mmol/L Carbon Dioxide 21 L (22-30) mmol/L BUN 131 H* (9-20) mg/dL Creatinine 2.90 H (0.66-1.25) mg/dL Glucose 118 H (74-99) mg/dL POC Glucose (mg/dL) 134 H 142 H (70-110) mg/dL Hemoglobin A1c (0.0-6.0) % Calcium 7.2 L (8.4-10.2) mg/dL TIBC (228-460) ug/dL % Saturation (15.00-50.00) Transferrin (204.0-354.0) mg/dL Ferritin (22.0-322.0) ng/mL 05/21/22 05/21/22 Range/Units 07:38 11:36 WBC 20.3 H (3.8-10.6) k/uL RBC 2.52 L (4.30-5.90) m/uL Hgb 7.7 L (13.0-17.5) gm/dL Hct 23.7 L (39.0-53.0) % Plt Count 134 L (150-450) k/uL Neutrophils # 19.3 H (1.3-7.7) k/uL Lymphocytes # 0.6 L (1.0-4.8) k/uL Potassium (3.5-5.1) mmol/L Chloride (98-107) mmol/L Carbon Dioxide (22-30) mmol/L BUN (9-20) mg/dL Creatinine (0.66-1.25) mg/dL Glucose (74-99) mg/dL POC Glucose (mg/dL) 228 H (70-110) mg/dL Hemoglobin A1c (0.0-6.0) % Calcium (8.4-10.2) mg/dL TIBC (228-460) ug/dL % Saturation (15.00-50.00) Transferrin (204.0-354.0) mg/dL Ferritin (22.0-322.0) ng/mL Assessment and Plan Plan: Assessment: 1. Acute kidney injury secondary to obstructive uropathy. Creatinine peaked at 3.28 this admission and is 2.9 today. Nonoliguric. Disproportionately elevated BUN due to steroids. 2. Urinary retention. Has Mcgovern catheter. On Flomax. Urology following. 3. Chronic kidney disease stage IIIB secondary to diabetic kidney disease with baseline creatinine near 2. 4. Diabetes mellitus. 5. Metabolic acidosis secondary to acute kidney injury on oral bicarbonate. 6. Chronic systolic CHF with ejection fraction of 40-45% with mild to moderate mitral regurgitation. 7. Anemia of chronic kidney disease. Iron replete. 8. Hypokalemia from poor intake and steroids. Replaced. Now hyperkalemic. Plan: Stopped potassium supplementation 05/20/2022. Received 5 g lokelma this AM. Add Aranesp. Encourage oral intake. Avoid nephrotoxins. Continue to monitor renal function and urine output. Repeat potassium level this evening.
--- NOTE | 2022-05-21 13:43 | P.DS ---
Providers Date of admission: 05/11/22 05:15 Expected date of discharge: 05/21/22 Attending physician: Mana Sandoval Consults: 05/11/22 05:15 Consult Physician Routine Consulting Provider: Ibeth Mishra Consult Reason/Comments: copd Do you want consulting provider notified?: Yes 05/13/22 07:02 Consult Physician Routine Consulting Provider: Lesly Murry Consult Reason/Comments: renal failure Do you want consulting provider notified?: Yes 05/15/22 08:10 Consult Physician Routine Consulting Provider: Vinnie Hollins Consult Reason/Comments: hydro Do you want consulting provider notified?: Yes 05/17/22 21:00 Consult Physician Routine Consulting Provider: Corby Bautista Consult Reason/Comments: aflutter with RVR Do you want consulting provider notified?: Yes, Notify in am Primary care physician: Samuel Venegas [facility] Course: Final diagnosis -Acute hypoxic respiratory failure secondary to COPD exacerbation and RSV infection -Acute renal failure on chronic kidney disease stage V acute renal failure secondary to hypovolemia, worsening and being placed on sodium bicarb tablets -Acute atrial flutter with RVR, currently rate controlled -Hematuria, most likely due to trauma from insertion of Mcgoevrn catheter while being maintained on IV heparin, improved -Elevated troponin, possibly type II myocardial infarction secondary to atrial flutter -Hyperchloremic metabolic acidosis secondary to IV fluids, improved -Hyperkalemia secondary to IV fluids, now hypokalemia, improved -Congestive heart failure acute on chronic chronic systolic dysfunction with acute exacerbation, EF is 40-45% -History of Coronary artery disease status post CABG -benign prostatic hypertrophy -hypertension -Diabetes mellitus , type II uncontrolled with elevated blood sugars secondary to systemic steroids -Hypertension -History of ulcerative colitis presently not on any medications -Anemia of chronic disease -DVT prophylaxis: scd -No code Discharge disposition Patient is being discharged in a stable condition with guarded prognosis to [facility] for continued PT/OT therapy. Patient will follow-up with Dr. Samuel Venegas in the outpatient setting upon discharge. Patient is to continue with those outpatient follow-up with pulmonary, cardiology, nephrology along with urology in the outpatient setting. Patient anticoagulation currently on hold as patient was having bleeding and will need outpatient urology follow-up for possible trial void and also recommending a repeat CBC BMP and magnesium in the next 2-3 days with close outpatient nephrology follow-up. Total time taken is greater than 35 minutes. Hospital course This is a 81-year-old male who was recently admitted with with RSV and shortness of breath requiring oxygen and also with concerns for sepsis on admission. Patient also in heart failure exacerbation with chronic diastolic dysfunction being monitored closely by cardiology. Patient had atrial flutter with RVR and is continued on amiodarone 400 mg twice daily for the next 4 days and then will titrate down to 200 mg daily on May 25 thereafter and recommend close outpatient followup . Patient also seen and evaluated by urology had indwelling Mcgovern catheter placed and recommend continue with possible outpatient trial void in the office with Dr. Márquez as patient having worsening kidney functions and also retention. Recommend to hold anticoagulation due to hematuria and will follow-up outpatient. Patient with significant weakness with physical therapy recommending rehab inpatient initially reluctant although now agreeable. Blood sugars remain variable with hyper and hypoglycemia recommend continue with close monitoring of Accu-Cheks before meals and at bedtime and 2 AM as needed with sliding scale and current regimen. Recommend soft foods as patient has minimal teeth and difficulty with chewing, dysphasia 2 or 3 with aspiration precautions. Currently no reports of chest pain, shortness of breath, or palpitations. Patient is afebrile. No reports of nausea or vomiting and patient is tolerating diet. Patient will be going to [facility] today. Guarded prognosis. Physical exam: Gen: This is a 81-year-old male who is awake, alert and oriented 3, ill- appearing, thin built, cachectic HEENT: Head is atraumatic, normocephalic. Pupils equal, round. Sclerae is anicteric. NECK: Supple. No JVD. No lymphadenopathy. No thyromegaly. LUNGS: Clear to auscultation. No wheezes or rhonchi. No intercostal retractions. HEART: S1, S2 are muffled ABDOMEN: Soft. Bowel sounds are present. No masses. No tenderness. EXTREMITIES: No pedal edema. No calf tenderness. NEUROLOGICAL: Patient is awake, alert and oriented x3. Cranial nerves 2 through 12 are 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. Please refer to medication reconciliation sheet for a list of medications. The impression and plan of care has been dictated by Yaquelin Frances, Nurse Practitioner as directed. Dr. Jaime MD I have performed a history and examination and MDM of this patient, discussed the same with the dictator, and agree with the dictator's assessment and plan as written ,documented as a scribe. Based on total visit time, I have performed more than 50% of the visit. Patient Condition at Discharge: Fair Plan - Discharge Summary New Discharge Prescriptions: New Amiodarone [Cordarone] 400 mg PO BID tab Ipratropium-Albuterol Nebulize [Duoneb 0.5 mg-3 mg/3 ml Soln] 3 ml INHALATION RT-QID each Tamsulosin [Flomax] 0.4 mg PO PC-BRKFST cap QUEtiapine [SEROquel] 25 mg PO HS tab Insulin Detemir (Levemir) [Levemir] 20 unit SQ BID each INSULIN ASPART (NovoLOG) [NovoLOG (formulary)] 0 unit SQ ACHS each predniSONE 10 mg PO DIRECTED #30 tab Sodium Bicarbonate Tab 650 mg PO BID tab Metoprolol Succinate (ER) [Toprol XL] 150 mg PO DAILY tab Continue glipiZIDE [Glucotrol XL] 5 mg PO DAILY Levothyroxine Sodium [Synthroid] 100 mcg PO DAILY Albuterol Nebulized [Ventolin Nebulized] 2.5 mg INHALATION RT-QID Vit C/E/Zn/Coppr/Lutein/Zeaxan [Preservision Areds 2 Softgel] 1 cap PO BID Albuterol Inhaler [Ventolin Hfa Inhaler] 2 puff INHALATION RT-QID PRN PRN Reason: Shortness Of Breath Magnesium Oxide [Mag-Ox] 400 mg PO DAILY #30 tablet Acetaminophen Tab [Tylenol] 650 mg PO Q6HR PRN tab PRN Reason: Mild Pain Or Fever > 100.5 Famotidine [Pepcid] 20 mg PO DAILY Discontinued Ipratropium Nebulized [Atrovent Nebulized 0.2 MG/ML] 0.5 mg INHALATION RT-QID Clopidogrel [Plavix] 75 mg PO DAILY Metoprolol Tartrate [Lopressor] 50 mg PO DAILY Furosemide [Lasix] 40 mg PO DIRECTED Potassium Chloride ER [K-Dur 20] 20 meq PO DAILY Discharge Medication List Levothyroxine Sodium [Synthroid] 100 mcg PO DAILY 08/04/14 [History] glipiZIDE [Glucotrol XL] 5 mg PO DAILY 08/04/14 [History] Albuterol Nebulized [Ventolin Nebulized] 2.5 mg INHALATION RT-QID 11/05/16 [History] Vit C/E/Zn/Coppr/Lutein/Zeaxan [Preservision Areds 2 Softgel] 1 cap PO BID 04/22/18 [History] Albuterol Inhaler [Ventolin Hfa Inhaler] 2 puff INHALATION RT-QID PRN 07/03/20 [History] Magnesium Oxide [Mag-Ox] 400 mg PO DAILY #30 tablet 07/05/20 [Rx] Famotidine [Pepcid] 20 mg PO DAILY 09/19/20 [History] Acetaminophen Tab [Tylenol] 650 mg PO Q6HR PRN tab 07/30/21 [Rx] Amiodarone [Cordarone] 400 mg PO BID tab 05/21/22 [Rx] INSULIN ASPART (NovoLOG) [NovoLOG (formulary)] 0 unit SQ ACHS each 05/21/22 [Rx] Insulin Detemir (Levemir) [Levemir] 20 unit SQ BID each 05/21/22 [Rx] Ipratropium-Albuterol Nebulize [Duoneb 0.5 mg-3 mg/3 ml Soln] 3 ml INHALATION RT-QID each 05/21/22 [Rx] Metoprolol Succinate (ER) [Toprol XL] 150 mg PO DAILY tab 05/21/22 [Rx] QUEtiapine [SEROquel] 25 mg PO HS tab 05/21/22 [Rx] Sodium Bicarbonate Tab 650 mg PO BID tab 05/21/22 [Rx] Tamsulosin [Flomax] 0.4 mg PO PC-BRKFST cap 05/21/22 [Rx] predniSONE 10 mg PO DIRECTED #30 tab 05/21/22 [Rx] Follow up Appointment(s)/Referral(s): Samuel Venegas MD [Primary Care Provider] - 1-2 days Patient Instructions/Handouts: Respiratory Syncytial Virus (DC) Discharge Disposition: TRANSFER TO SNF/ECF
[2022-05-21] MEDS ORDERED: DARBEPOETIN ALFA 40 MCG/0.4 ML SYRINGE SQ SCH (14:00)
[2022-05-21 16:12] VITALS: BP 148/63; PULSE 64
[2022-05-21 16:41] LABS: Glucose,Whole Blood 336 mg/dL (70-110)
--- NOTE | 2022-05-21 18:30 | PN ---
PROGRESS NOTE SUBJECTIVE: Mr. Orozco is a patient with COPD and RSV pneumonia. He feels better. His blood sugars have improved. He has no chest pain. His shortness of breath has also improved. He is resting comfortably. He is known to have ischemic cardiomyopathy with prior ICD. He appears to be in a sinus rhythm or a paced rhythm. OBJECTIVE: VITAL SIGNS: Stable. NECK: JVD 1 cm. No carotid bruit. HEART: S1 and S2 heard normally. Rhythm still is irregular, but controlled. LUNGS: Reveal some improvement in air entry. ABDOMEN: Soft. EXTREMITIES: Lower extremities reveal diminished pulses. CENTRAL NERVOUS SYSTEM: Unremarkable with no new changes. PLAN: Plan is to continue current medical regimen with amiodarone taper and see how he does. MMODL / IJN: [id number] /
--- NOTE | 2022-05-22 17:14 | CDI ---
Documentation Clarification Form Date: 05/22/2022 04:31:17 PM From: Nneka Alvarado Phone: Admit Date: 05/11/2022 05:15:00 AM Patient Name: Vinnie Orozco Visit Number: [id number] Discharge Date: 05/21/2022 05:26:00 PM ATTENTION: The Clinical Documentation Specialists (CDI) and [facility] Coding Staff appreciate your assistance in clarifying documentation. Please respond to the clarification below the line at the bottom and electronically sign. The CDI & [facility] Coding staff will review the response and follow-up if needed. Please note: Queries are made part of the Legal Health Record. If you have any questions, please contact the author of this message via ITS. Dr. Mana Sandoval Conflicting documentation has been found in the medical record. As attending physician, please provide clarification. CKD V per H&P and Progress Notes CKD stage IIIB per Consult 05/13/22 History/Risk Factors: 81yo M, AC H/HRF, AECOPD, RSV w sepsis & Flu, ROGE on CKD, hypovolemia, atrial flutter, Hematuria, d/t Mcgovern, NSTEMI II, CAD sp CABG, hypochloremia, metabolic acidosis, CHF, BPH, Hyperkalemia, hypokalemia, HTN, DMII uncontrolled d/t to systemic steroids, UC, Anemia CKD Clinical Indicators: Baseline creatinine about 1.5 mg/dL in September 2020 with episode of ROGE in July 2021 with peak creatinine at about 4 mg/dL and lowest at 1.9 on 07/30/2021. Current BUN: 05/12 52 05/15 92 05/18 116 05/21 131 Creatinine: 05/12 2.3 05/15 3.28 05/18 3.25 05/21 2.90 AA GFR: 05/12 30.0 05/15 19 05/18 20 05/21 23 Non AA GRF: 05/12 25.9 05/15 17 05/18 17 05/21 20 Treatment: Increase Lasix to 40 IV twice a day. Check bladder scan. Check ultrasound of the kidneys. Check urine analysis. Repeat labs in a.m. Avoid nephrotoxic agents. Consults: Nephrology, Urology following Please clarify which diagnosis is most appropriate: [ ] CKD Stage 3b (GFR 30-44) [ ] CKD Stage 4 (GFR 15-29) [ ] CKD Stage 5 (GFR <15) [ ] Other (please specify) [ ] Unable to determine (Template Last Revised: July 2020) CKD Stage 4 (GFR 15-29) MTDD
== END 2022-05-21 17:26 | DRG 871 ==
LOC: EC 02:53 → 4SSUR 05:15 → 3SCARD 05-12 21:09
PROVIDERS: ADMIT Hospitalist; ATTEND Hospitalist
PROC: 0T9B70Z Drainage of Bladder with Drainage Device, Via Natural or Artificial Opening (ICD-10-PCS; principal; 2022-05-19)
DX: A41.89 Other specified sepsis (principal); G93.41 Metabolic encephalopathy; J96.21 Acute and chronic respiratory failure with hypoxia; I50.43 Acute on chronic combined systolic (congestive) and diastolic (congestive) heart failure; J12.1 Respiratory syncytial virus pneumonia; I21.A1 Myocardial infarction type 2; T83.83XA Hemorrhage due to genitourinary prosthetic devices, implants and grafts, initial encounter; E87.29 Other acidosis; N17.9 Acute kidney failure, unspecified; I13.2 Hypertensive heart and chronic kidney disease with heart failure and with stage 5 chronic kidney disease, or end stage renal disease; I48.3 Typical atrial flutter; J44.1 Chronic obstructive pulmonary disease with (acute) exacerbation; J44.0 Chronic obstructive pulmonary disease with (acute) lower respiratory infection; N13.30 Unspecified hydronephrosis; N18.4 Chronic kidney disease, stage 4 (severe); K51.90 Ulcerative colitis, unspecified, without complications; J98.11 Atelectasis; I27.20 Pulmonary hypertension, unspecified; I49.5 Sick sinus syndrome; D63.1 Anemia in chronic kidney disease; E11.22 Type 2 diabetes mellitus with diabetic chronic kidney disease; I95.9 Hypotension, unspecified; E87.8 Other disorders of electrolyte and fluid balance, not elsewhere classified; F32.A Depression, unspecified; I08.1 Rheumatic disorders of both mitral and tricuspid valves; E11.65 Type 2 diabetes mellitus with hyperglycemia; E87.5 Hyperkalemia; H91.90 Unspecified hearing loss, unspecified ear; L85.3 Xerosis cutis; N40.0 Benign prostatic hyperplasia without lower urinary tract symptoms; Y65.8 Other specified misadventures during surgical and medical care; R31.0 Gross hematuria; N32.89 Other specified disorders of bladder; E87.6 Hypokalemia; E86.1 Hypovolemia; E78.5 Hyperlipidemia, unspecified; I25.10 Atherosclerotic heart disease of native coronary artery without angina pectoris; T38.0X5A Adverse effect of glucocorticoids and synthetic analogues, initial encounter; Z53.20 Procedure and treatment not carried out because of patient's decision for unspecified reasons; I25.5 Ischemic cardiomyopathy; I48.0 Paroxysmal atrial fibrillation; Z20.822 Contact with and (suspected) exposure to COVID-19; Z87.19 Personal history of other diseases of the digestive system; Z28.310 Unvaccinated for COVID-19; Z79.02 Long term (current) use of antithrombotics/antiplatelets; Z79.4 Long term (current) use of insulin; Z79.51 Long term (current) use of inhaled steroids; Z79.84 Long term (current) use of oral hypoglycemic drugs; Z79.890 Hormone replacement therapy; Z87.891 Personal history of nicotine dependence; Z95.1 Presence of aortocoronary bypass graft; Z95.810 Presence of automatic (implantable) cardiac defibrillator; Z79.899 Other long term (current) drug therapy; Z87.440 Personal history of urinary (tract) infections; Z87.442 Personal history of urinary calculi; Z88.8 Allergy status to other drugs, medicaments and biological substances; Z85.72 Personal history of non-Hodgkin lymphomas; Z92.21 Personal history of antineoplastic chemotherapy
CPT/HCPCS: 36415; 36600; 71045; 71046; 76770; 80048; 80053; 81001; 82728; 82805; 83036; 83540; 83550; 83735; 83880; 84132; 84484; 85025; 85610; 85730; 87636; 93005; 93306; 94640; 94760; 96365; 99285

== ENCOUNTER 2022-05-23 14:17 | Inpatient (IN) | payer MEDICARE ==
[2022-05-23] MEDS ORDERED: SODIUM CHLORIDE 0.9% 1,000 ML IV STA (15:15)
[2022-05-23 15:53] LABS: Albumin 2.3 g/dL (3.5-5.0); Calcium 6.8 mg/dL (8.4-10.2); Magnesium 2.2 mg/dL (1.6-2.3); Potassium 5.1 mmol/L (3.5-5.1); Total Bilirubin 0.3 mg/dL (0.2-1.3); Total Protein 4.9 g/dL (6.3-8.2)
[2022-05-23 15:54] LABS: Basophils % (A) 0 %; Eosinophils % (A) 0 %; Lymphocytes # (A) 0.3 k/uL (1.0-4.8); Lymphocytes % (A) 2 %; MCH 30.9 pg (25.0-35.0); MCHC 32.4 g/dL (31.0-37.0); MCV 95.4 fL (80.0-100.0); Mean Platelet Volume 9.1; Monocytes # (A) 0.3 k/uL (0-1.0); Monocytes % (A) 2 %; Neutrophils # (A) 15.3 k/uL (1.3-7.7); Neutrophils % (A) 96 %; Platelet Count 114 k/uL (150-450); RBC 2.02 m/uL (4.30-5.90); RDW 13.5 % (11.5-15.5); WBC 15.9 k/uL (3.8-10.6)
[2022-05-23] MEDS ORDERED: IPRATROPIUM-ALBUTEROL 3 ML NEB INHALATION STA (15:55)
--- NOTE | 2022-05-23 15:55 | XR ---
EXAMINATION TYPE: XR chest 1V portable DATE OF EXAM: 05/23/2022 Comparison: 05/18/2022 Clinical History: 81-year-old male, GI bleed, pain Findings: Left anterior chest wall AICD generator with right atrial and right ventricular leads. Median sternot srinivasa wires and post-CABG clips in the mediastinum heart upper limits of normal in size. Hyperinflation . No consolidation or pleural effusion. Impression: Post-CABG changes. Left-sided AICD generator. COPD. No acute process seen.
[2022-05-23 16:06] LABS: INR 0.9 (<1.2); Prothrombin Time 10.1 sec (9.0-12.0)
[2022-05-23 16:07] LABS: HGB 6.2 gm/dL (13.0-17.5)
[2022-05-23 16:09] LABS: HCT 19.3 % (39.0-53.0)
[2022-05-23 16:11] LABS: Partial Thromboplastin Time 20.7 sec (22.0-30.0)
--- NOTE | 2022-05-23 16:12 | ED ---
General Adult HPI - General Chief complaint: GI Bleed Stated complaint: GI bleed Time Seen by Provider: 05/23/22 15:11 Source: patient, RN notes reviewed, old records reviewed Mode of arrival: EMS Limitations: no limitations - History of Present Illness Initial comments: Patient is an 81-year-old male who presents from his nursing facility over concern for blood in his Mcgarry catheter, and possibly blood in his stool. States he has not noticed blood in his stool. States the helpers at the facility noticed blood in the stool but is unable to provide much more history regarding this. He did rip out his full catheter a few days ago has had some bleeding in his urine since then. They replaced the Mcgarry cath and he has been having adequate urinary drainage. Patient does have history of asthma, diabetes, hypertension. Recent diagnosis of RSV. Is on oxygen at baseline. Denies any chest pain, abdominal pain, diarrhea. Denies any nausea or vomiting. Denies any other urinary complaints at this time. His no other acute complaints at this time. Presents for further evaluation at this time. Does have a significant cardiac history. Denies shortness of breath or chest pain.States he may be on blood thinners but cannot recall his medications. Per our list, patient is not on blood thinners. Was previously on Plavix but no longer. - Related Data Home Medications Medication Instructions Recorded Confirmed Levothyroxine Sodium [Synthroid] 100 mcg PO DAILY 08/04/14 05/23/22 glipiZIDE [Glucotrol XL] 5 mg PO DAILY 08/04/14 05/23/22 Albuterol Nebulized [Ventolin 2.5 mg INHALATION RT-QID 11/05/16 05/23/22 Nebulized] Vit C/E/Zn/Coppr/Lutein/Zeaxan 1 cap PO BID 04/22/18 05/23/22 [Preservision Areds 2 Softgel] Albuterol Inhaler [Ventolin Hfa 2 puff INHALATION RT-QID PRN 07/03/20 05/23/22 Inhaler] Famotidine [Pepcid] 20 mg PO DAILY 09/19/20 05/23/22 Amiodarone [Cordarone] See Taper PO DIRECTED 05/23/22 05/23/22 Darbepoetin Murali [Aranesp] 40 mcg SQ FR 05/23/22 05/23/22 Eucerin Cream 1 applic TOPICAL BID 05/23/22 05/23/22 Glucagon [Gvoke Pfs 1-Pack Syringe] 1 mg SQ Q15M PRN 05/23/22 05/23/22 Insulin Aspart [NovoLOG Flexpen] See Protocol SQ ACHS 05/23/22 05/23/22 Insulin Detemir [Levemir Flextouch 20 units SQ BID@0700,1600 05/23/22 05/23/22 Pen] Insulin Lispro [humaLOG Kwikpen] 4 unit SQ ACHS 05/23/22 05/23/22 Tamsulosin [Flomax] 0.4 mg PO DAILY 05/23/22 05/23/22 predniSONE See Taper PO DIRECTED 05/23/22 05/23/22 Previous Rx's Medication Instructions Recorded Magnesium Oxide [Mag-Ox] 400 mg PO DAILY #30 tablet 07/05/20 Acetaminophen Tab [Tylenol] 650 mg PO Q6HR PRN tab 07/30/21 Ipratropium-Albuterol Nebulize 3 ml INHALATION RT-QID each 05/21/22 [Duoneb 0.5 mg-3 mg/3 ml Soln] Metoprolol Succinate (ER) [Toprol 150 mg PO DAILY tab 05/21/22 XL] QUEtiapine [SEROquel] 25 mg PO HS tab 05/21/22 Sodium Bicarbonate Tab 650 mg PO BID tab 05/21/22 Allergies Allergy/AdvReac Type Severity Reaction Status Date / Time esmolol [From Brevibloc] AdvReac "felt like Verified 05/23/22 15:41 I was going to pass out" Review of Systems ROS Statement: Those systems with pertinent positive or pertinent negative responses have been documented in the HPI. Review of Systems: CONST: Denies fever EYES: Denies blurry vision ENT: Denies nasal congestion C/V: Denies Chest pain RESP: Denies shortness of breath GI: Denies abdominal pain : Endorses mcgarry catheter in place, hematuria. SKIN: Denies rash. MSK: Denies joint pain. NEURO: Denies headache ROS Other: All systems not noted in ROS Statement are negative. Past Medical History Past Medical History: Asthma, Coronary Artery Disease (CAD), Cancer, Diabetes Mellitus, Hyperlipidemia, Hypertension, Thyroid Disorder Additional Past Medical History / Comment(s): ,bladder stones,and urinary infection and cellulitis kailyn legs,lymphoma, chemotherapy, radiation,- 06/2011, colitis History of Any Multi-Drug Resistant Organisms: None Reported Past Surgical History: AICD, Coronary Bypass/CABG, Heart Catheterization With Stent, Orthopedic Surgery, Pacemaker Additional Past Surgical History / Comment(s): Lt ankle - plate. sinus surgery s/t cancer. CABG-4 vessels. pacemaker/defib. [facility] upper left chest Past Anesthesia/Blood Transfusion Reactions: No Reported Reaction Additional Past Anesthesia/Blood Transfusion Reaction / Comment(s): no probles with prior blood transfusion Date of Last Stent Placement:: 2001 Type of Cardiac Device: Permanent Pacemaker, AICD Device Placement Date:: 2001 Past Psychological History: No Psychological Hx Reported Smoking Status: Former smoker Past Alcohol Use History: None Reported Past Drug Use History: None Reported - Past Family History Brother(s) Family Medical History: Myocardial Infarction ([place]) Additional Family Medical History / Comment(s): Patient has 3 brothers and one has history of coronary artery disease. Sister(s) Additional Family Medical History / Comment(s): Patient has one sister with history of SVT and AVR. Son(s) Additional Family Medical History / Comment(s): Patient has 2 sons and one has history of kidney stones. Patient does not have any daughters. Patient has a grandson treated for SVT. Father Family Medical History: No Reported History Additional Family Medical History / Comment(s): Father at age 72 with history of coronary artery disease and CABG Mother Family Medical History: No Reported History Additional Family Medical History / Comment(s): Mother at age 93 with history of coronary artery disease. General Exam - General Exam Comments Initial Comments: General: Appears in no acute distress. HEAD: Normal with no signs of head trauma. EYES: PERRLA, EOMI, conjunctiva normal, no discharge. ENT: Hearing 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, normal oropharynx. RESPIRATORY: Clear breath sounds bilaterally. No wheezes, rales, or rhonchi. C/V: Regular rate and rhythm. S1 and S2 auscultated, no edema, peripheral pulses 2+ and intact throughout ABD: Abd is soft, nontender, nondistended. Rectal exam performed by myself in the presence of the patient's nurse. No obvious hemorrhoids. No gross blood. Light brown stool on exam. Good rectal tone. : Mcgarry catheter is in place. Hematuria present. EXT: Normal range of motion, no obvious deformity SKIN: No rashes or lesions observed on exposed skin. NEURO: Alert and oriented 4. No focal deficits. Limitations: no limitations Course Vital Signs 05/23/22 05/23/22 05/23/22 14:29 18:25 18:38 Temperature 97.4 F L 98.1 F 97.6 F Pulse Rate 58 L 62 60 Respiratory 16 15 16 Rate Blood Pressure 100/71 117/51 99/60 O2 Sat by Pulse 99 98 98 Oximetry 05/23/22 05/23/22 05/23/22 18:58 19:07 19:17 Temperature Pulse Rate 61 60 65 Respiratory 15 Rate Blood Pressure 127/63 O2 Sat by Pulse 99 Oximetry 05/23/22 05/23/22 05/23/22 19:32 20:00 20:16 Temperature 97.9 F 97.9 F Pulse Rate 60 61 60 Respiratory 16 16 16 Rate Blood Pressure 122/77 146/54 146/54 O2 Sat by Pulse 99 98 98 Oximetry 05/23/22 05/23/22 05/23/22 21:00 21:17 21:18 Temperature 97.9 F 97.7 F Pulse Rate 64 62 62 Respiratory 16 16 16 Rate Blood Pressure 136/76 136/77 136/77 O2 Sat by Pulse 98 98 98 Oximetry Medical Decision Making - Medical Decision Making Was pt. sent in by a medical professional or institution? @ -long-term Did you speak to anyone other than the patient for history? @ -No Did you review nursing and triage notes? @ -Yes, I agree. Were old charts reviewed? @ -Previous admissions, [facility] Differential Diagnosis? @ -Differential GI Bleed: Esophageal varices, aortoenteric fistula, Melva-Enrique, gastritis, peptic ulcer disease, diverticulosis, inflammatory bowel disease, hemorrhoids, fissure, colitis, malignancy, Meckels diverticulum, traumatic blood catheter removal. this is not meant to be an all-inclusive list. EKG interpreted by me (3pts min.)? @ -Yes. See note. X-rays interpreted by me (1pt min.)? @ -Yes. Chest x-ray reveals no acute cardio pulmonary process. CT interpreted by me (1pt min.)? @ -none U/S interpreted by me (1pt. min.)? @ -none What testing was considered but not performed? (CT, X-rays, U/S, labs)? Why? @No What meds were considered but not given? Why? @ -None Did you discuss the management of the patient with other professionals? @ -Urology consult Dr. Willoughby who agreed with monitoring the patient's hemoglobin levels and maintaining the Mcgarry catheter for the hematuria. We'll evaluate the patient the morning. I spoke with general surgery on-call Dr. Cardenas accepted to consult for GI bleed, and was in agreement with monitoring will go been levels and will evaluate the patient in the morning. Did you reconcile home meds? @ -Yes Was smoking cessation discussed for >3mins.? @ -none Was critical care preformed (if so, how long)? @ -none Were there social determinants of health that impacted care today? How? (Homelessness, low income, unemployed, alcoholism, drug addiction, transporta tion, low edu. Level, literacy, decrease access to med. care, longterm, rehab)? @ -None Was there de-escalation of care discussed even if they declined? (Discuss DNR or withdrawal of care, Hospice)? @ -No What co-morbidities impacted this encounter? (DM, HTN, Smoking, COPD, CAD, Cancer, CVA, Hep., AIDS, mental health diagnosis, sleep apnea, morbid obesity)? @ -Mcgarry catheter placement for urinary retention, COPD, chronic dyspnea. Was patient admitted / discharged? @ -Based on the patient's presentation and physical exam, I'm concerned for GI bleed versus hematuria at this time. Hematuria is likely secondary to his traumatic Mcgarry catheter removal. He has no other symptoms at this time. Presents for further evaluation. Was recently diagnosed with RSV and is requesting one of his normal breathing treatments as he missed his last one. This will be administered. Vital signs otherwise within acceptable limits. He'll be given a 1 L fluid bolus and we will obtain basic GI bleed workup, including occult blood, urinalysis. Patient was in agreement this plan. Patient's lavatory studies were remarkable for a elevated leukocytosis of 15.9. Hemoglobin is decreased to 6.2, which is a 3 g drop from 1 week ago. Platelet count is chronically thrombocytopenic at 114. HEENT stable. Patient is a elevated BUN/creatinine the setting of CK D which appears to be at his baseline. Lactic acid is slightly elevated to 2.2. Urinalysis shows a large amount of h ematuria. Occult blood is positive. EKG showed no signs of acute ischemia. Chest x-ray revealed no acute cardiopulmonary process. I discussed the findings with the patient. He is not on blood thinners but appears to be anemic secondary to hematuria and possibly a GI bleed. Was having decreased hemoglobin levels from prior admission over the past week. I would like to admit him to the hospital and he was in agreement this plan. Initially I did reach out to Dr. Cardenas of Gen. surgery who was in agreement with the consult. We have no GI available to us but she feels comfortable managing the concern for the GI bleed. Was in agreement with our plan. Patient received Protonix. We will repeat hemoglobin levels. Patient was given a 1 unit packed red blood cell blood transfusion. I next spoke with the urology consult and Dr. Willoughby who is in agreement with the plan and accepted the consult. I spoke with the admitting physician, Dr. Smith who is admitting for Dr. John who typically admits for Dr. Tay Venegas. He accepted the patient was in agreement this plan. We'll monitor hemoglobin levels. Patient was admitted in stable condition. Undiagnosed new problem with uncertain prognosis? @ -Yes. Concern for acute GI bleed, hematuria secondary to traumatic Mcgarry removal Drug Therapy requiring intensive monitoring for toxicity (Heparin, Nitro, Insulin, Cardizem)? @ -none Were any procedures done? @ -none Diagnosis/symptom? @ -Symptomatic anemia secondary to blood loss, hematuria secondary to Mcgarry catheter traumatic removal, fecal occult blood positive with concern for GI bleed Acute, or Chronic, or Acute on Chronic? @ -Acute Uncomplicated (without systemic symptoms) or Complicated (systemic symptoms)? @ -Complicated Side effects of treatment? @ -none Exacerbation, Progression, or Severe Exacerbation] @ -no Poses a threat to life or bodily function? @ -Yes - Lab Data Result diagrams: 05/23/22 15:30 05/23/22 15:30 Lab Results 05/23/22 05/23/22 05/23/22 Range/Units 15:30 15:30 15:30 WBC 15.9 H (3.8-10.6) k/uL RBC 2.02 L (4.30-5.90) m/uL Hgb 6.2 L* D (13.0-17.5) gm/dL Hct 19.3 L* (39.0-53.0) % MCV 95.4 (80.0-100.0) fL MCH 30.9 (25.0-35.0) pg MCHC 32.4 (31.0-37.0) g/dL RDW 13.5 (11.5-15.5) % Plt Count 114 L (150-450) k/uL MPV 9.1 Neutrophils % 96 % Lymphocytes % 2 % Monocytes % 2 % Eosinophils % 0 % Basophils % 0 % Neutrophils # 15.3 H (1.3-7.7) k/uL Lymphocytes # 0.3 L (1.0-4.8) k/uL Monocytes # 0.3 (0-1.0) k/uL Eosinophils # 0.0 (0-0.7) k/uL Basophils # 0.0 (0-0.2) k/uL PT 10.1 (9.0-12.0) sec INR 0.9 (<1.2) APTT 20.7 L (22.0-30.0) sec Sodium 136 L (137-145) mmol/L Potassium 5.1 (3.5-5.1) mmol/L Chloride 109 H (98-107) mmol/L Carbon Dioxide 20 L (22-30) mmol/L Anion Gap 7 mmol/L BUN 130 H* (9-20) mg/dL Creatinine 3.04 H (0.66-1.25) mg/dL Est GFR (CKD-EPI)AfAm 21 (>60 ml/min/1.73 sqM) Est GFR (CKD-EPI)NonAf 19 (>60 ml/min/1.73 sqM) Glucose 296 H (74-99) mg/dL Lactic Ac Sepsis Rflx Plasma Lactic Acid Ju[place] (0.7-2.0) mmol/L Calcium 6.8 L (8.4-10.2) mg/dL Magnesium 2.2 (1.6-2.3) mg/dL Total Bilirubin 0.3 (0.2-1.3) mg/dL AST 34 (17-59) U/L ALT 53 H (4-49) U/L Alkaline Phosphatase 111 (38-126) U/L Total Protein 4.9 L (6.3-8.2) g/dL Albumin 2.3 L (3.5-5.0) g/dL Lipase 85 (23-300) U/L Urine Color Urine Appearance (Clear) Urine pH (5.0-8.0) Ur Specific [place] (1.001-1.035) Urine Protein (Negative) Urine Glucose (UA) (Negative) Urine Ketones (Negative) Urine Blood (Negative) Urine Nitrite (Negative) Urine Bilirubin (Negative) Urine Urobilinogen (<2.0) mg/dL Ur Leukocyte Esterase (Negative) Urine RBC (0-5) /hpf Urine WBC (0-5) /hpf Urine WBC Clumps (None) /hpf Urine Bacteria (None) /hpf Urine Mucus (None) /hpf Stool Occult Blood (Negative) Blood Type Blood Type Recheck Bld Type Recheck Status Antibody Screen Crossmatch Spec Expiration Date 05/23/22 05/23/22 05/23/22 Range/Units 15:30 15:30 15:59 WBC (3.8-10.6) k/uL RBC (4.30-5.90) m/uL Hgb (13.0-17.5) gm/dL Hct (39.0-53.0) % MCV (80.0-100.0) fL MCH (25.0-35.0) pg MCHC (31.0-37.0) g/dL RDW (11.5-15.5) % Plt Count (150-450) k/uL MPV Neutrophils % % Lymphocytes % % Monocytes % % Eosinophils % % Basophils % % Neutrophils # (1.3-7.7) k/uL Lymphocytes # (1.0-4.8) k/uL Monocytes # (0-1.0) k/uL Eosinophils # (0-0.7) k/uL Basophils # (0-0.2) k/uL PT (9.0-12.0) sec INR (<1.2) APTT (22.0-30.0) sec Sodium (137-145) mmol/L Potassium (3.5-5.1) mmol/L Chloride (98-107) mmol/L Carbon Dioxide (22-30) mmol/L Anion Gap mmol/L BUN (9-20) mg/dL Creatinine (0.66-1.25) mg/dL Est GFR (CKD-EPI)AfAm (>60 ml/min/1.73 sqM) Est GFR (CKD-EPI)NonAf (>60 ml/min/1.73 sqM) Glucose (74-99) mg/dL Lactic Ac Sepsis Rflx Y Plasma Lactic Acid [place] 2.2 H* (0.7-2.0) mmol/L Calcium (8.4-10.2) mg/dL Magnesium (1.6-2.3) mg/dL Total Bilirubin (0.2-1.3) mg/dL AST (17-59) U/L ALT (4-49) U/L Alkaline Phosphatase (38-126) U/L Total Protein (6.3-8.2) g/dL Albumin (3.5-5.0) g/dL Lipase (23-300) U/L Urine Color Urine Appearance (Clear) Urine pH (5.0-8.0) Ur Specific [place] (1.001-1.035) Urine Protein (Negative) Urine Glucose (UA) (Negative) Urine Ketones (Negative) Urine Blood (Negative) Urine Nitrite (Negative) Urine Bilirubin (Negative) Urine Urobilinogen (<2.0) mg/dL Ur Leukocyte Esterase (Negative) Urine RBC (0-5) /hpf Urine WBC (0-5) /hpf Urine WBC Clumps (None) /hpf Urine Bacteria (None) /hpf Urine Mucus (None) /hpf Stool Occult Blood (Negative) Blood Type O Positive Blood Type Recheck O Pos Bld Type Recheck Status No Antibody Screen NEGATIVE Crossmatch See Detail Spec Expiration Date 05/26/2022232905/23/22 05/23/22 Range/Units 16:51 16:51 WBC (3.8-10.6) k/uL RBC (4.30-5.90) m/uL Hgb (13.0-17.5) gm/dL Hct (39.0-53.0) % MCV (80.0-100.0) fL MCH (25.0-35.0) pg MCHC (31.0-37.0) g/dL RDW (11.5-15.5) % Plt Count (150-450) k/uL MPV Neutrophils % % Lymphocytes % % Monocytes % % Eosinophils % % Basophils % % Neutrophils # (1.3-7.7) k/uL Lymphocytes # (1.0-4.8) k/uL Monocytes # (0-1.0) k/uL Eosinophils # (0-0.7) k/uL Basophils # (0-0.2) k/uL PT (9.0-12.0) sec INR (<1.2) APTT (22.0-30.0) sec Sodium (137-145) mmol/L Potassium (3.5-5.1) mmol/L Chloride (98-107) mmol/L Carbon Dioxide (22-30) mmol/L Anion Gap mmol/L BUN (9-20) mg/dL Creatinine (0.66-1.25) mg/dL Est GFR (CKD-EPI)AfAm (>60 ml/min/1.73 sqM) Est GFR (CKD-EPI)NonAf (>60 ml/min/1.73 sqM) Glucose (74-99) mg/dL Lactic Ac Sepsis Rflx Plasma Lactic Acid [place] (0.7-2.0) mmol/L Calcium (8.4-10.2) mg/dL Magnesium (1.6-2.3) mg/dL Total Bilirubin (0.2-1.3) mg/dL AST (17-59) U/L ALT (4-49) U/L Alkaline Phosphatase (38-126) U/L Total Protein (6.3-8.2) g/dL Albumin (3.5-5.0) g/dL Lipase (23-300) U/L Urine Color Light Red Urine Appearance Cloudy (Clear) Urine pH 5.5 (5.0-8.0) Ur Specific [place] 1.017 (1.001-1.035) Urine Protein 2+ H (Negative) Urine Glucose (UA) 2+ H (Negative) Urine Ketones Negative (Negative) Urine Blood Large H (Negative) Urine Nitrite Negative (Negative) Urine Bilirubin Negative (Negative) Urine Urobilinogen <2.0 (<2.0) mg/dL Ur Leukocyte Esterase Large H (Negative) Urine RBC >182 H (0-5) /hpf Urine WBC >182 H (0-5) /hpf Urine WBC Clumps Many H (None) /hpf Urine Bacteria Few H (None) /hpf Urine Mucus Rare H (None) /hpf Stool Occult Blood Positive (Negative) Blood Type Blood Type Recheck Bld Type Recheck Status Antibody Screen Crossmatch Spec Expiration Date - EKG Data -: EKG Interpreted by Me EKG Comments: 12-lead Electrocardiogram Interpretation Note EKG was reviewed and interpreted by myself. 12-lead ECG performed at 1701 is interpreted by me as revealing atrially paced rhythm at a rate of at 60 beats per minute. [place] is normal. DC interval is 199 ms. QRS duration is 106 ms, QTc is 484 ms. There were no ST or T wave abnormalities to suggest myocardial ischemia or injury. R wave progression across the precordium was satisfactory. By my interpretation this EKG is non-diagnostic for acute ischemia. When compared with EKG from 05/13/2022, no significant change. Disposition Clinical Impression: Occult blood positive stool, Hematuria, Anemia Disposition: ADMITTED IP TO THIS HOSP Condition: Stable Time of Disposition: 18:30
[2022-05-23 18:14] LABS: Appearance,Urine Cloudy (Clear); Bacteria,Urine Few /hpf; Bilirubin,Urine Negative (Negative); Blood,Urine Large (Negative); Color,Urine Light Red; Glucose,Urine (UA) 2+ (Negative); Ketones,Urine Negative (Negative); Leukocyte Esterase,Urine Large (Negative); Mucus,Urine Rare /hpf; Nitrite,Urine Negative (Negative); PH, Urine 5.5 (5.0-8.0); Protein,Urine 2+ (Negative); RBC,Urine >182 /hpf (0-5); Specific Gravity,Urine 1.017 (1.001-1.035); Urobilinogen,Urine <2.0 mg/dL (<2.0); WBC,Urine >182 /hpf (0-5)
[2022-05-23] MEDS ORDERED: PANTOPRAZOLE 40 MG/10 ML VIAL IVP STA (18:52)
[2022-05-23] MEDS ORDERED: NALOXONE 0.4 MG/ML 1 ML VIAL IV PRN (18:58)
[2022-05-23] MEDS ORDERED: ALBUTEROL NEBULIZED 2.5 MG/3 ML INHALATION PRN (19:00)
[2022-05-23] MEDS ORDERED: GLUCAGON SQ PRN (19:00)
[2022-05-23] MEDS: IPRATROPIUM-ALBUTEROL 3 ML NEB INHALATION SCH (19:07)
[2022-05-23] MEDS ORDERED: ALBUTEROL NEBULIZED 2.5 MG/3 ML INHALATION SCH (20:00)
[2022-05-23] MEDS ORDERED: DARBEPOETIN ALFA 40 MCG/0.4 ML SYRINGE SQ SCH (21:00)
[2022-05-23] MEDS: QUEtiapine 25 MG TAB PO SCH (22:10)
[2022-05-23] MEDS: SODIUM BICARBONATE TAB 650 MG TAB PO SCH (22:10)
[2022-05-23 22:21] LABS: Glucose,Whole Blood 291 mg/dL (70-110)
[2022-05-23] MEDS: INSULIN ASPART (NovoLOG) 100 UNIT/ML VIAL SQ SCH (22:25)
[2022-05-23 23:57] LABS: Basophils % (A) 0 %; Eosinophils % (A) 0 %; HCT 21.6 % (39.0-53.0); HGB 7.4 gm/dL (13.0-17.5); Lymphocytes # (A) 0.4 k/uL (1.0-4.8); Lymphocytes % (A) 3 %; MCH 31.9 pg (25.0-35.0); MCHC 34.5 g/dL (31.0-37.0); MCV 92.6 fL (80.0-100.0); Mean Platelet Volume 8.9; Monocytes # (A) 0.3 k/uL (0-1.0); Monocytes % (A) 3 %; Neutrophils # (A) 11.9 k/uL (1.3-7.7); Neutrophils % (A) 94 %; Platelet Count 108 k/uL (150-450); RBC 2.33 m/uL (4.30-5.90); RDW 13.4 % (11.5-15.5); WBC 12.7 k/uL (3.8-10.6)
[2022-05-24 04:38] LABS: Basophils % (A) 0 %; Eosinophils % (A) 0 %; HCT 22.6 % (39.0-53.0); HGB 7.3 gm/dL (13.0-17.5); Lymphocytes # (A) 0.8 k/uL (1.0-4.8); Lymphocytes % (A) 6 %; MCH 30.2 pg (25.0-35.0); MCHC 32.1 g/dL (31.0-37.0); Mean Platelet Volume 10.7; Monocytes # (A) 0.3 k/uL (0-1.0); Monocytes % (A) 2 %; Neutrophils # (A) 12.9 k/uL (1.3-7.7); Neutrophils % (A) 92 %; Platelet Count 110 k/uL (150-450); RDW 13.9 % (11.5-15.5)
[2022-05-24 04:50] LABS: Potassium 5.1 mmol/L (3.5-5.1)
[2022-05-24] MEDS: LEVOTHYROXINE 100 MCG TAB PO SCH (06:09)
[2022-05-24 06:47] LABS: Glucose,Whole Blood 161 mg/dL (70-110)
[2022-05-24] MEDS: IPRATROPIUM-ALBUTEROL 3 ML NEB INHALATION SCH ×4 (07:55→19:49)
[2022-05-24] MEDS: INSULIN ASPART (NovoLOG) 100 UNIT/ML VIAL SQ SCH ×4 (10:08→20:55)
[2022-05-24] MEDS: PANTOPRAZOLE 40 MG/10 ML VIAL IVP SCH (10:08)
[2022-05-24] MEDS: METOPROLOL SUCCINATE (ER) 50 MG TAB.ER.24H PO SCH (10:09)
[2022-05-24] MEDS: FAMOTIDINE 20 MG TAB PO SCH (10:09)
[2022-05-24] MEDS: MAGNESIUM OXIDE 400 MG TAB PO SCH (10:10)
[2022-05-24] MEDS: TAMSULOSIN 0.4 MG CAP.ER.24H PO SCH (10:10)
[2022-05-24] MEDS: SODIUM BICARBONATE TAB 650 MG TAB PO SCH ×2 (10:10→20:55)
--- NOTE | 2022-05-24 11:31 | P.GSCN ---
History of Present Illness Consult date: 05/24/22 Reason for Consult: anemia History of present illness: The patient was brought into the emergency department from a nursing care facility with hematuria. Reports given to me by the emergency department physician was the patient had removed his own Mcgovern with the balloon inflated. He's had some hematuria since that time. Lab work done in the ER showed that he was anemic and has received blood. A Hemoccult test was done also showing blood . The patient denies any history of ulcers or any abdominal pain. He doesn't seem like a very good historian so I spoke with his via phone. She says he has a distant history of colitis but it has not been bothering him lately. She thinks she's had a colonoscopy but it may have been 5 years ago more. Denies any history of ulcer disease. Denies family history of GI malignancy Review of Systems All systems: negative Past Medical History Past Medical History: Asthma, Coronary Artery Disease (CAD), Cancer, Diabetes Mellitus, Hyperlipidemia, Hypertension, Thyroid Disorder Additional Past Medical History / Comment(s): ,bladder stones,and urinary infection and cellulitis kailyn legs,lymphoma, chemotherapy, radiation,- 06/2011, colitis History of Any Multi-Drug Resistant Organisms: None Reported Past Surgical History: AICD, Coronary Bypass/CABG, Heart Catheterization With Stent, Orthopedic Surgery, Pacemaker Additional Past Surgical History / Comment(s): Lt ankle - plate. sinus surgery s/t cancer. CABG-4 vessels. pacemaker/defib. [facility] upper left chest Past Anesthesia/Blood Transfusion Reactions: No Reported Reaction Additional Past Anesthesia/Blood Transfusion Reaction / Comm: no probles with prior blood transfusion Date of Last Stent Placement:: 2001 Type of Cardiac Device: Permanent Pacemaker, AICD Device Placement Date:: 2001 Past Psychological History: No Psychological Hx Reported Smoking Status: Former smoker Past Alcohol Use History: None Reported Additional Past Alcohol Use History / Comment(s): Patient quit smoking in 1967. Past Drug Use History: None Reported - Past Family History Brother(s) Family Medical History: Myocardial Infarction ([place]) Additional Family Medical History / Comment(s): Patient has 3 brothers and one has history of coronary artery disease. Sister(s) Additional Family Medical History / Comment(s): Patient has one sister with history of SVT and AVR. Son(s) Additional Family Medical History / Comment(s): Patient has 2 sons and one has history of kidney stones. Patient does not have any daughters. Patient has a grandson treated for SVT. Father Family Medical History: No Reported History Additional Family Medical History / Comment(s): Father at age 72 with history of coronary artery disease and CABG Mother Family Medical History: No Reported History Additional Family Medical History / Comment(s): Mother at age 93 with history of coronary artery disease. Medications and Allergies Home Medications Medication Instructions Recorded Confirmed Type Levothyroxine Sodium [Synthroid] 100 mcg PO DAILY 08/04/14 05/23/22 History glipiZIDE [Glucotrol XL] 5 mg PO DAILY 08/04/14 05/23/22 History Albuterol Nebulized [Ventolin 2.5 mg INHALATION RT-QID 11/05/16 05/23/22 History Nebulized] Vit C/E/Zn/Coppr/Lutein/Zeaxan 1 cap PO BID 04/22/18 05/23/22 History [Preservision Areds 2 Softgel] Albuterol Inhaler [Ventolin Hfa 2 puff INHALATION RT-QID PRN 07/03/20 05/23/22 History Inhaler] Magnesium Oxide [Mag-Ox] 400 mg PO DAILY #30 tablet 07/05/20 05/23/22 Rx Famotidine [Pepcid] 20 mg PO DAILY 09/19/20 05/23/22 History Acetaminophen Tab [Tylenol] 650 mg PO Q6HR PRN tab 07/30/21 05/23/22 Rx Ipratropium-Albuterol Nebulize 3 ml INHALATION RT-QID each 05/21/22 05/23/22 Rx [Duoneb 0.5 mg-3 mg/3 ml Soln] Metoprolol Succinate (ER) [Toprol 150 mg PO DAILY tab 05/21/22 05/23/22 Rx XL] QUEtiapine [SEROquel] 25 mg PO HS tab 05/21/22 05/23/22 Rx Sodium Bicarbonate Tab 650 mg PO BID tab 05/21/22 05/23/22 Rx Amiodarone [Cordarone] See Taper PO DIRECTED 05/23/22 05/23/22 History Darbepoetin Murali [Aranesp] 40 mcg SQ FR 05/23/22 05/23/22 History Eucerin Cream 1 applic TOPICAL BID 05/23/22 05/23/22 History Glucagon [Gvoke Pfs 1-Pack Syringe] 1 mg SQ Q15M PRN 05/23/22 05/23/22 History Insulin Aspart [NovoLOG Flexpen] See Protocol SQ ACHS 05/23/22 05/23/22 History Insulin Detemir [Levemir Flextouch 20 units SQ BID@0700,1600 05/23/22 05/23/22 History Pen] Insulin Lispro [humaLOG Kwikpen] 4 unit SQ ACHS 05/23/22 05/23/22 History Tamsulosin [Flomax] 0.4 mg PO DAILY 05/23/22 05/23/22 History predniSONE See Taper PO DIRECTED 05/23/22 05/23/22 History Allergies Allergy/AdvReac Type Severity Reaction Status Date / Time esmolol [From Brevibloc] AdvReac "felt like Verified 05/23/22 15:41 I was going to pass out" Surgical - Exam Osteopathic Statement: *. No significant issues noted on an osteopathic structural exam other than those noted in the History and Physical/Consult. Vital Signs Temp Pulse Resp BP Pulse Ox 97.4 F L 58 L 16 100/71 99 05/23/22 14:29 05/23/22 14:29 05/23/22 14:29 05/23/22 14:29 05/23/22 14:29 - General well developed, well nourished (Age-appropriate), no distress - Eyes normal ocular movement - Neck trachea midline - Respiratory normal respiratory effort, clear to auscultation - Cardiovascular Rhythm: regular - Abdomen Abdomen: soft, non tender, bowel sounds - Genitourinary Blood-tinged urine in the Mcgovern bag Results - Labs 05/24/22 04:23 05/24/22 04:23 Abnormal Lab Results - Last 24 Hours (Table) 05/23/22 05/23/22 05/23/22 Range/Units 15:30 15:30 15:30 WBC 15.9 H (3.8-10.6) k/uL RBC 2.02 L (4.30-5.90) m/uL Hgb 6.2 L* D (13.0-17.5) gm/dL Hct 19.3 L* (39.0-53.0) % Plt Count 114 L (150-450) k/uL Neutrophils # 15.3 H (1.3-7.7) k/uL Lymphocytes # 0.3 L (1.0-4.8) k/uL APTT 20.7 L (22.0-30.0) sec Sodium 136 L (137-145) mmol/L Chloride 109 H (98-107) mmol/L Carbon Dioxide 20 L (22-30) mmol/L BUN 130 H* (9-20) mg/dL Creatinine 3.04 H (0.66-1.25) mg/dL Glucose 296 H (74-99) mg/dL POC Glucose (mg/dL) (70-110) mg/dL Plasma Lactic Acid Juancho (0.7-2.0) mmol/L Calcium 6.8 L (8.4-10.2) mg/dL ALT 53 H (4-49) U/L Total Protein 4.9 L (6.3-8.2) g/dL Albumin 2.3 L (3.5-5.0) g/dL Urine Protein (Negative) Urine Glucose (UA) (Negative) Urine Blood (Negative) Ur Leukocyte Esterase (Negative) Urine RBC (0-5) /hpf Urine WBC (0-5) /hpf Urine WBC Clumps (None) /hpf Urine Bacteria (None) /hpf Urine Mucus (None) /hpf Crossmatch 05/23/22 05/23/22 05/23/22 Range/Units 15:30 15:30 16:51 WBC (3.8-10.6) k/uL RBC (4.30-5.90) m/uL Hgb (13.0-17.5) gm/dL Hct (39.0-53.0) % Plt Count (150-450) k/uL Neutrophils # (1.3-7.7) k/uL Lymphocytes # (1.0-4.8) k/uL APTT (22.0-30.0) sec Sodium (137-145) mmol/L Chloride (98-107) mmol/L Carbon Dioxide (22-30) mmol/L BUN (9-20) mg/dL Creatinine (0.66-1.25) mg/dL Glucose (74-99) mg/dL POC Glucose (mg/dL) (70-110) mg/dL Plasma Lactic Acid Juancho 2.2 H* (0.7-2.0) mmol/L Calcium (8.4-10.2) mg/dL ALT (4-49) U/L Total Protein (6.3-8.2) g/dL Albumin (3.5-5.0) g/dL Urine Protein 2+ H (Negative) Urine Glucose (UA) 2+ H (Negative) Urine Blood Large H (Negative) Ur Leukocyte Esterase Large H (Negative) Urine RBC >182 H (0-5) /hpf Urine WBC >182 H (0-5) /hpf Urine WBC Clumps Many H (None) /hpf Urine Bacteria Few H (None) /hpf Urine Mucus Rare H (None) /hpf Crossmatch See Detail 05/23/22 05/23/22 05/24/22 Range/Units 22:18 23:50 04:23 WBC 12.7 H 14.0 H (3.8-10.6) k/uL RBC 2.33 L 2.40 L (4.30-5.90) m/uL Hgb 7.4 L 7.3 L (13.0-17.5) gm/dL Hct 21.6 L 22.6 L (39.0-53.0) % Plt Count 108 L 110 L (150-450) k/uL Neutrophils # 11.9 H 12.9 H (1.3-7.7) k/uL Lymphocytes # 0.4 L 0.8 L (1.0-4.8) k/uL APTT (22.0-30.0) sec Sodium (137-145) mmol/L Chloride (98-107) mmol/L Carbon Dioxide (22-30) mmol/L BUN (9-20) mg/dL Creatinine (0.66-1.25) mg/dL Glucose (74-99) mg/dL POC Glucose (mg/dL) 291 H (70-110) mg/dL Plasma Lactic Acid Juancho (0.7-2.0) mmol/L Calcium (8.4-10.2) mg/dL ALT (4-49) U/L Total Protein (6.3-8.2) g/dL Albumin (3.5-5.0) g/dL Urine Protein (Negative) Urine Glucose (UA) (Negative) Urine Blood (Negative) Ur Leukocyte Esterase (Negative) Urine RBC (0-5) /hpf Urine WBC (0-5) /hpf Urine WBC Clumps (None) /hpf Urine Bacteria (None) /hpf Urine Mucus (None) /hpf Crossmatch 05/24/22 05/24/22 Range/Units 04:23 06:46 WBC (3.8-10.6) k/uL RBC (4.30-5.90) m/uL Hgb (13.0-17.5) gm/dL Hct (39.0-53.0) % Plt Count (150-450) k/uL Neutrophils # (1.3-7.7) k/uL Lymphocytes # (1.0-4.8) k/uL APTT (22.0-30.0) sec Sodium (137-145) mmol/L Chloride 115 H (98-107) mmol/L Carbon Dioxide (22-30) mmol/L BUN 113 H* (9-20) mg/dL Creatinine 2.72 H (0.66-1.25) mg/dL Glucose 174 H (74-99) mg/dL POC Glucose (mg/dL) 161 H (70-110) mg/dL Plasma Lactic Acid Juancho (0.7-2.0) mmol/L Calcium 7.0 L (8.4-10.2) mg/dL ALT (4-49) U/L Total Protein (6.3-8.2) g/dL Albumin (3.5-5.0) g/dL Urine Protein (Negative) Urine Glucose (UA) (Negative) Urine Blood (Negative) Ur Leukocyte Esterase (Negative) Urine RBC (0-5) /hpf Urine WBC (0-5) /hpf Urine WBC Clumps (None) /hpf Urine Bacteria (None) /hpf Urine Mucus (None) /hpf Crossmatch Microbiology - Last 24 Hours (Table) 05/23/22 16:51 Urine Culture - Preliminary Urine,Voided Diabetes panel 05/23/22 05/24/22 Range/Units 15:30 04:23 Sodium 136 L 139 (137-145) mmol/L Potassium 5.1 5.1 (3.5-5.1) mmol/L Chloride 109 H 115 H (98-107) mmol/L Carbon Dioxide 20 L 22 (22-30) mmol/L BUN 130 H* 113 H* (9-20) mg/dL Creatinine 3.04 H 2.72 H (0.66-1.25) mg/dL Glucose 296 H 174 H (74-99) mg/dL Calcium 6.8 L 7.0 L (8.4-10.2) mg/dL AST 34 (17-59) U/L ALT 53 H (4-49) U/L Alkaline Phosphatase 111 (38-126) U/L Total Protein 4.9 L (6.3-8.2) g/dL Albumin 2.3 L (3.5-5.0) g/dL Calcium panel 05/23/22 05/24/22 Range/Units 15:30 04:23 Calcium 6.8 L 7.0 L (8.4-10.2) mg/dL Albumin 2.3 L (3.5-5.0) g/dL Pituitary panel 05/23/22 05/24/22 Range/Units 15:30 04:23 Sodium 136 L 139 (137-145) mmol/L Potassium 5.1 5.1 (3.5-5.1) mmol/L Chloride 109 H 115 H (98-107) mmol/L Carbon Dioxide 20 L 22 (22-30) mmol/L BUN 130 H* 113 H* (9-20) mg/dL Creatinine 3.04 H 2.72 H (0.66-1.25) mg/dL Glucose 296 H 174 H (74-99) mg/dL Calcium 6.8 L 7.0 L (8.4-10.2) mg/dL Adrenal panel 05/23/22 05/24/22 Range/Units 15:30 04:23 Sodium 136 L 139 (137-145) mmol/L Potassium 5.1 5.1 (3.5-5.1) mmol/L Chloride 109 H 115 H (98-107) mmol/L Carbon Dioxide 20 L 22 (22-30) mmol/L BUN 130 H* 113 H* (9-20) mg/dL Creatinine 3.04 H 2.72 H (0.66-1.25) mg/dL Glucose 296 H 174 H (74-99) mg/dL Calcium 6.8 L 7.0 L (8.4-10.2) mg/dL Total Bilirubin 0.3 (0.2-1.3) mg/dL AST 34 (17-59) U/L ALT 53 H (4-49) U/L Alkaline Phosphatase 111 (38-126) U/L Total Protein 4.9 L (6.3-8.2) g/dL Albumin 2.3 L (3.5-5.0) g/dL Assessment and Plan (1) Anemia Current Visit: Yes Status: Acute Code(s): D64.9 - ANEMIA, UNSPECIFIED SNOMED Code(s): 514052790 (2) Occult blood positive stool Current Visit: Yes Status: Acute Code(s): R19.5 - OTHER FECAL ABNORMALITIES SNOMED Code(s): 06810013 (3) Gross hematuria Current Visit: No Status: Acute Code(s): R31.0 - GROSS HEMATURIA SNOMED Code(s): 855288375 Plan: In reviewing lab from previous admission he's had anemia back to 2019. At that time the hemoglobin was in the 8-9 range. His anemia currently is probably as result of the gross hematuria. Patient declines a colonoscopy. The asked me to talk to Dr. Garcia so I will call his office [facility] to find out when the last colonoscopy was. I will talk to Dr. Venegas and ask whether he wants the patient have any endoscopy performed as the patient is not having any hematemesis or melanotic stool.
[2022-05-24] MEDS: INSULIN DETEMIR (LEVEMIR) 100 UNIT/ML SYR SQ SCH ×2 (12:00→15:26)
--- NOTE | 2022-05-24 12:01 | P.GSCN ---
History of Present Illness Consult date: 05/24/22 Reason for Consult: Gross hematuria History of present illness: This is an 81-year-old male admitted to the hospital with acute blood loss anem ia. His Hgb was 6.2, from 7.7 last week at time of discharge. Urology was consulted at his last admission last week for catheter placement and gross hematuria. Of note patient Gross hematuria started after attempted catheter placement, and has had persistent hematuria since that time. He is on Plavix, which is currently on hold. He received 1 unit of RBCs and his hemoglobin responded appropriately. Denies any abdominal pain or flank pain. He does have history of a TURP in the past which was done by Dr. Márquez. Denies any voiding dysfunction is at baseline. He is also been evaluated by general surgery for positive Hemoccult. His catheter has been draining, no issues with clotting. Review of Systems - Constitutional Denies chills, Denies fever - Cardiovascular Denies chest pain, Denies shortness of breath - Respiratory Denies cough, Denies 7 - Gastrointestinal Reports as per HPI - Genitourinary Reports hematuria Past Medical History Past Medical History: Asthma, Coronary Artery Disease (CAD), Cancer, Diabetes Mellitus, Hyperlipidemia, Hypertension, Thyroid Disorder Additional Past Medical History / Comment(s): ,bladder stones,and urinary infection and cellulitis kailyn legs,lymphoma, chemotherapy, radiation,- 06/2011, colitis History of Any Multi-Drug Resistant Organisms: None Reported Past Surgical History: AICD, Coronary Bypass/CABG, Heart Catheterization With Stent, Orthopedic Surgery, Pacemaker Additional Past Surgical History / Comment(s): Lt ankle - plate. sinus surgery s/t cancer. CABG-4 vessels. pacemaker/defib. [facility] upper left chest Past Anesthesia/Blood Transfusion Reactions: No Reported Reaction Additional Past Anesthesia/Blood Transfusion Reaction / Comm: no probles with prior blood transfusion Date of Last Stent Placement:: 2001 Type of Cardiac Device: Permanent Pacemaker, AICD Device Placement Date:: 2001 Past Psychological History: No Psychological Hx Reported Smoking Status: Former smoker Past Alcohol Use History: None Reported Additional Past Alcohol Use History / Comment(s): Patient quit smoking in 1967. Past Drug Use History: None Reported - Past Family History Brother(s) Family Medical History: Myocardial Infarction ([place]) Additional Family Medical History / Comment(s): Patient has 3 brothers and one has history of coronary artery disease. Sister(s) Additional Family Medical History / Comment(s): Patient has one sister with history of SVT and AVR. Son(s) Additional Family Medical History / Comment(s): Patient has 2 sons and one has history of kidney stones. Patient does not have any daughters. Patient has a grandson treated for SVT. Father Family Medical History: No Reported History Additional Family Medical History / Comment(s): Father at age 72 with history of coronary artery disease and CABG Mother Family Medical History: No Reported History Additional Family Medical History / Comment(s): Mother at age 93 with history of coronary artery disease. Medications and Allergies Home Medications Medication Instructions Recorded Confirmed Type Levothyroxine Sodium [Synthroid] 100 mcg PO DAILY 08/04/14 05/23/22 History glipiZIDE [Glucotrol XL] 5 mg PO DAILY 08/04/14 05/23/22 History Albuterol Nebulized [Ventolin 2.5 mg INHALATION RT-QID 11/05/16 05/23/22 History Nebulized] Vit C/E/Zn/Coppr/Lutein/Zeaxan 1 cap PO BID 04/22/18 05/23/22 History [Preservision Areds 2 Softgel] Albuterol Inhaler [Ventolin Hfa 2 puff INHALATION RT-QID PRN 07/03/20 05/23/22 History Inhaler] Magnesium Oxide [Mag-Ox] 400 mg PO DAILY #30 tablet 07/05/20 05/23/22 Rx Famotidine [Pepcid] 20 mg PO DAILY 09/19/20 05/23/22 History Acetaminophen Tab [Tylenol] 650 mg PO Q6HR PRN tab 07/30/21 05/23/22 Rx Ipratropium-Albuterol Nebulize 3 ml INHALATION RT-QID each 05/21/22 05/23/22 Rx [Duoneb 0.5 mg-3 mg/3 ml Soln] Metoprolol Succinate (ER) [Toprol 150 mg PO DAILY tab 05/21/22 05/23/22 Rx XL] QUEtiapine [SEROquel] 25 mg PO HS tab 05/21/22 05/23/22 Rx Sodium Bicarbonate Tab 650 mg PO BID tab 05/21/22 05/23/22 Rx Amiodarone [Cordarone] See Taper PO DIRECTED 05/23/22 05/23/22 History Darbepoetin Murali [Aranesp] 40 mcg SQ FR 05/23/22 05/23/22 History Eucerin Cream 1 applic TOPICAL BID 05/23/22 05/23/22 History Glucagon [Gvoke Pfs 1-Pack Syringe] 1 mg SQ Q15M PRN 05/23/22 05/23/22 History Insulin Aspart [NovoLOG Flexpen] See Protocol SQ ACHS 05/23/22 05/23/22 History Insulin Detemir [Levemir Flextouch 20 units SQ BID@0700,1600 05/23/22 05/23/22 History Pen] Insulin Lispro [humaLOG Kwikpen] 4 unit SQ ACHS 05/23/22 05/23/22 History Tamsulosin [Flomax] 0.4 mg PO DAILY 05/23/22 05/23/22 History predniSONE See Taper PO DIRECTED 05/23/22 05/23/22 History Allergies Allergy/AdvReac Type Severity Reaction Status Date / Time esmolol [From Brevibloc] AdvReac "felt like Verified 05/23/22 15:41 I was going to pass out" Surgical - Exam Vital Signs Temp Pulse Resp BP Pulse Ox 97.4 F L 58 L 16 100/71 99 05/23/22 14:29 05/23/22 14:29 05/23/22 14:29 05/23/22 14:29 05/23/22 14:29 - General no distress, no pain - Eyes normal ocular movement, no pale - ENT normal nares, normal mucosa - Respiratory normal expansion, normal respiratory effort - Abdomen Abdomen: soft, non tender - Genitourinary Catheter tubing shows blood-tinged urine, no clots normal penis with no external lesions, testicles present Results - Labs 05/24/22 04:23 05/24/22 04:23 Abnormal Lab Results - Last 24 Hours (Table) 05/23/22 05/23/22 05/23/22 Range/Units 15:30 15:30 15:30 WBC 15.9 H (3.8-10.6) k/uL RBC 2.02 L (4.30-5.90) m/uL Hgb 6.2 L* D (13.0-17.5) gm/dL Hct 19.3 L* (39.0-53.0) % Plt Count 114 L (150-450) k/uL Neutrophils # 15.3 H (1.3-7.7) k/uL Lymphocytes # 0.3 L (1.0-4.8) k/uL APTT 20.7 L (22.0-30.0) sec Sodium 136 L (137-145) mmol/L Chloride 109 H (98-107) mmol/L Carbon Dioxide 20 L (22-30) mmol/L BUN 130 H* (9-20) mg/dL Creatinine 3.04 H (0.66-1.25) mg/dL Glucose 296 H (74-99) mg/dL POC Glucose (mg/dL) (70-110) mg/dL Plasma Lactic Acid Juancho (0.7-2.0) mmol/L Calcium 6.8 L (8.4-10.2) mg/dL ALT 53 H (4-49) U/L Total Protein 4.9 L (6.3-8.2) g/dL Albumin 2.3 L (3.5-5.0) g/dL Urine Protein (Negative) Urine Glucose (UA) (Negative) Urine Blood (Negative) Ur Leukocyte Esterase (Negative) Urine RBC (0-5) /hpf Urine WBC (0-5) /hpf Urine WBC Clumps (None) /hpf Urine Bacteria (None) /hpf Urine Mucus (None) /hpf Crossmatch 05/23/22 05/23/22 05/23/22 Range/Units 15:30 15:30 16:51 WBC (3.8-10.6) k/uL RBC (4.30-5.90) m/uL Hgb (13.0-17.5) gm/dL Hct (39.0-53.0) % Plt Count (150-450) k/uL Neutrophils # (1.3-7.7) k/uL Lymphocytes # (1.0-4.8) k/uL APTT (22.0-30.0) sec Sodium (137-145) mmol/L Chloride (98-107) mmol/L Carbon Dioxide (22-30) mmol/L BUN (9-20) mg/dL Creatinine (0.66-1.25) mg/dL Glucose (74-99) mg/dL POC Glucose (mg/dL) (70-110) mg/dL Plasma Lactic Acid Juancho 2.2 H* (0.7-2.0) mmol/L Calcium (8.4-10.2) mg/dL ALT (4-49) U/L Total Protein (6.3-8.2) g/dL Albumin (3.5-5.0) g/dL Urine Protein 2+ H (Negative) Urine Glucose (UA) 2+ H (Negative) Urine Blood Large H (Negative) Ur Leukocyte Esterase Large H (Negative) Urine RBC >182 H (0-5) /hpf Urine WBC >182 H (0-5) /hpf Urine WBC Clumps Many H (None) /hpf Urine Bacteria Few H (None) /hpf Urine Mucus Rare H (None) /hpf Crossmatch See Detail 05/23/22 05/23/22 05/24/22 Range/Units 22:18 23:50 04:23 WBC 12.7 H 14.0 H (3.8-10.6) k/uL RBC 2.33 L 2.40 L (4.30-5.90) m/uL Hgb 7.4 L 7.3 L (13.0-17.5) gm/dL Hct 21.6 L 22.6 L (39.0-53.0) % Plt Count 108 L 110 L (150-450) k/uL Neutrophils # 11.9 H 12.9 H (1.3-7.7) k/uL Lymphocytes # 0.4 L 0.8 L (1.0-4.8) k/uL APTT (22.0-30.0) sec Sodium (137-145) mmol/L Chloride (98-107) mmol/L Carbon Dioxide (22-30) mmol/L BUN (9-20) mg/dL Creatinine (0.66-1.25) mg/dL Glucose (74-99) mg/dL POC Glucose (mg/dL) 291 H (70-110) mg/dL Plasma Lactic Acid Juancho (0.7-2.0) mmol/L Calcium (8.4-10.2) mg/dL ALT (4-49) U/L Total Protein (6.3-8.2) g/dL Albumin (3.5-5.0) g/dL Urine Protein (Negative) Urine Glucose (UA) (Negative) Urine Blood (Negative) Ur Leukocyte Esterase (Negative) Urine RBC (0-5) /hpf Urine WBC (0-5) /hpf Urine WBC Clumps (None) /hpf Urine Bacteria (None) /hpf Urine Mucus (None) /hpf Crossmatch 05/24/22 05/24/22 Range/Units 04:23 06:46 WBC (3.8-10.6) k/uL RBC (4.30-5.90) m/uL Hgb (13.0-17.5) gm/dL Hct (39.0-53.0) % Plt Count (150-450) k/uL Neutrophils # (1.3-7.7) k/uL Lymphocytes # (1.0-4.8) k/uL APTT (22.0-30.0) sec Sodium (137-145) mmol/L Chloride 115 H (98-107) mmol/L Carbon Dioxide (22-30) mmol/L BUN 113 H* (9-20) mg/dL Creatinine 2.72 H (0.66-1.25) mg/dL Glucose 174 H (74-99) mg/dL POC Glucose (mg/dL) 161 H (70-110) mg/dL Plasma Lactic Acid Juancho (0.7-2.0) mmol/L Calcium 7.0 L (8.4-10.2) mg/dL ALT (4-49) U/L Total Protein (6.3-8.2) g/dL Albumin (3.5-5.0) g/dL Urine Protein (Negative) Urine Glucose (UA) (Negative) Urine Blood (Negative) Ur Leukocyte Esterase (Negative) Urine RBC (0-5) /hpf Urine WBC (0-5) /hpf Urine WBC Clumps (None) /hpf Urine Bacteria (None) /hpf Urine Mucus (None) /hpf Crossmatch Microbiology - Last 24 Hours (Table) 05/23/22 16:51 Urine Culture - Preliminary Urine,Voided Diabetes panel 05/23/22 05/24/22 Range/Units 15:30 04:23 Sodium 136 L 139 (137-145) mmol/L Potassium 5.1 5.1 (3.5-5.1) mmol/L Chloride 109 H 115 H (98-107) mmol/L Carbon Dioxide 20 L 22 (22-30) mmol/L BUN 130 H* 113 H* (9-20) mg/dL Creatinine 3.04 H 2.72 H (0.66-1.25) mg/dL Glucose 296 H 174 H (74-99) mg/dL Calcium 6.8 L 7.0 L (8.4-10.2) mg/dL AST 34 (17-59) U/L ALT 53 H (4-49) U/L Alkaline Phosphatase 111 (38-126) U/L Total Protein 4.9 L (6.3-8.2) g/dL Albumin 2.3 L (3.5-5.0) g/dL Calcium panel 05/23/22 05/24/22 Range/Units 15:30 04:23 Calcium 6.8 L 7.0 L (8.4-10.2) mg/dL Albumin 2.3 L (3.5-5.0) g/dL Pituitary panel 05/23/22 05/24/22 Range/Units 15:30 04:23 Sodium 136 L 139 (137-145) mmol/L Potassium 5.1 5.1 (3.5-5.1) mmol/L Chloride 109 H 115 H (98-107) mmol/L Carbon Dioxide 20 L 22 (22-30) mmol/L BUN 130 H* 113 H* (9-20) mg/dL Creatinine 3.04 H 2.72 H (0.66-1.25) mg/dL Glucose 296 H 174 H (74-99) mg/dL Calcium 6.8 L 7.0 L (8.4-10.2) mg/dL Adrenal panel 05/23/22 05/24/22 Range/Units 15:30 04:23 Sodium 136 L 139 (137-145) mmol/L Potassium 5.1 5.1 (3.5-5.1) mmol/L Chloride 109 H 115 H (98-107) mmol/L Carbon Dioxide 20 L 22 (22-30) mmol/L BUN 130 H* 113 H* (9-20) mg/dL Creatinine 3.04 H 2.72 H (0.66-1.25) mg/dL Glucose 296 H 174 H (74-99) mg/dL Calcium 6.8 L 7.0 L (8.4-10.2) mg/dL Total Bilirubin 0.3 (0.2-1.3) mg/dL AST 34 (17-59) U/L ALT 53 H (4-49) U/L Alkaline Phosphatase 111 (38-126) U/L Total Protein 4.9 L (6.3-8.2) g/dL Albumin 2.3 L (3.5-5.0) g/dL Assessment and Plan Assessment: 81-year-old male with gross hematuria most likely secondary to trauma from catheter. Hemoglobin trended down 6.2 from 7.7. Responded appropriately following blood transfusion. At this point his hematuria is improving compared to last week. Catheter draining without any issues and no clots. At this point given the improvement in his gross hematuria, and the lack of catheter clotting, no need for cystoscopy at this point -Keep the catheter in place -Irrigate mcgarry catheter as needed -continue flomax -Continue to hold Plavix
[2022-05-24 12:27] LABS: Glucose,Whole Blood 143 mg/dL (70-110)
[2022-05-24] MEDS: VIT A,C & E-LUTEIN-MINERALS 1 EACH TAB PO SCH ×2 (12:31→20:56)
[2022-05-24 13:25] LABS: Glucose,Whole Blood 112 mg/dL (70-110)
--- NOTE | 2022-05-24 14:04 | P.HPIM ---
History of Present Illness H&P Date: 05/24/22 This is a 81-year-old male who presented to the emergency department from [facility] With concerns of bleeding noted and the Mcgovern with hematuria and also possible blood in the stool. Patient had been recently discharged with RSV, atrial flutter, acute kidney injury and retention requiring indwelling Mcgovern catheter placement. Patient had been evaluated by urology along with nephrology during last admission a few days ago and stable recommending outpatient follow- up with urology and continue with indwelling Mcgovern catheter. Hemoglobin had been stable in the low 11/29 and does have a history of anemia. Patient also with a significant past medical history of asthma/COPD, coronary artery disease, CABG, pacemaker, diabetes mellitus, hypertension, hypothyroid and follows with Dr. Samuel Venegas in the outpatient setting. Patient with significant weakness seen by physical therapy recommending rehab in the first patient wanted to go home although was agreeable to rehab and was sent there with continued indwelling Mcgovern catheter and instructed to have outpatient follow-up with urology. Patient was started on Aranesp and anticoagulation was on hold due to the hematuria. Patient was on a prednisone taper along with DuoNeb treatments oral amiodarone that was on a taper along with Flomax. Patient admitted for general surgery consultation along with urology for hematuria and possible GI bleed. Labs reviewed on admission show a WBC of 12.7 most likely reactive as patient had been on IV steroids and recently transitioned oral prednisone, hemoglobin was 7.4, platelets low and have been low at 108, sodium was 136 with a potassium of 5.1, BUN that has been persistently high was 1:30 with a creatinine of 3.04, hyperglycemia noted and patient had a plasma lactic acid level of 2.2. Occult stool was positive. Chest x-ray revealed post CABG changes with left sided AICD noted and COPD with no acute process noted. EKG with an electronic atrial paced with a prolonged QT interval of 484. Review Of Systems: Constitutional: No fever, no chills, no night sweats. No weight change. Patient reports of generalized weakness that have been ongoing since previous admission, fatigue or lethargy. No daytime sleepiness. EENT: No headache. No blurred vision or double vision, no loss of vision. No loss of Hearing, no ringing in the ears, no dizziness. No nasal drainage or congestion. No epistaxis. No sore throat. Lungs: No reports of worsening shortness of breath, 4 to occasional cough, no sputum production. No wheezing. Cardiovascular: No chest pain, no lower extremity edema. No palpitations. No paroxysmal nocturnal dyspnea. No orthopnea. No lightheadedness or dizziness. No syncopal episodes. Abdominal: No abdominal pain. No nausea, vomiting. No diarrhea. No co nstipation. No bloody or tarry stools.. No loss of appetite. Reports poor oral intake Genitourinary: No dysuria, increased frequency, urgency Reports urinary retention Has had indwelling Mcgovern catheter since last admission few days ago. Musculoskeletal: No myalgias. No muscle weakness, no gait dysfunction, no frequent falls. No back pain. No neck pain. Integumentary: No wounds, no lesions. No rash or pruritus. No unusual bruising. No change in hair or nails. Neurologic: No aphasia. No facial droop. No change in mentation. No head injury. No headache. No paralysis. No paresthesia. Psychiatric: No depression. No anxiety. No mood swings. Endocrine: No abnormal blood sugars. No weight change. No excessive sweating or thirst. No cold intolerance. PHYSICAL EXAMINATION: GENERAL: The patient is alert and oriented x3, poor historian, cachectic, ill- appearing, pale HEENT: Pupils are round and equally reacting to light. EOMI. no scleral icterus. No conjunctival pallor. Normocephalic, atraumatic. No pharyngeal erythema. No thyromegaly. CARDIOVASCULAR: S1 and S2 muffled , Irregular PULMONARY: diminished breath sounds bilaterally with no wheezin, some scattered noted. ABDOMEN: soft. Nontender on exam. non-distended, normoactive bowel sounds. No palpable organomegaly. MUSCULOSKELETAL: No joint swelling or deformity. EXTREMITIES: No cyanosis, clubbing generalized lower edema noted NEUROLOGICAL: Gross neurological examination did not reveal any focal deficits. Diffuse weakness SKIN: No rashes. Pale Assessment: Hematuria most likely secondary to trauma from insertion of indwelling Mcgovern catheter History of recent admission with hematuria and acute kidney injury Acute on chronic hypoxic respiratory failure secondary to COPD, chronically wears 2-3 L outpatient Chronic anemia most likely due to chronic kidney disease Leukocytosis, most likely reactive from steroids Diabetes mellitus, uncontrolled, insulin-dependent with hyperglycemia Lactic acidosis secondary to dehydration Possible acute GI bleed, although suspicion is low and surgery was consulted and pending Recent hospitalization for RSV Atrial flutter GI prophylaxis DVT prophylaxis, SCDs, anticoagulation on hold due to hematuria Full code Plan: Recommend to continue with current medications and management with general surgery Dr. Cardenas and also urology consulted and following. Patient with noted hematuria and had indwelling Mcgovern catheter placed during last admission 3 days ago 2 due to urinary retention and did have some trauma with the catheter placement Patient was also on anticoagulation although due to bleeding was stopped as patient has atrial flutter and does have an AICD pacemaker Discussed with patient about CODE STATUS and patient will be no code Continue indwelling Mcgovern catheter and will monitor for worsening hematuria, hemoglobin is currently stable and urology recommended to continue with Mcgovern catheter and irrigate as needed Recommend monitoring Accu-Cheks before meals and at bedtime and as needed and will continue current medication regimen Continue prednisone taper patient was initially on Due to multiple complex medical issues, prognosis is guarded we'll follow-up with repeat labs. The impression and plan of care has been dictated by Yaquelin Frances, nurse practitioner as directed. Dr. Chucho MD I have performed a history and examination and MDM of this patient, discussed the same with the dictator, and agree with the dictator's assessment and plan as written ,documented as a scribe. Based on total visit time, I have performed more than 50% of the visit. Any additional findings or plans will be noted. Past Medical History Past Medical History: Asthma, Coronary Artery Disease (CAD), Cancer, Diabetes Mellitus, Hyperlipidemia, Hypertension, Thyroid Disorder Additional Past Medical History / Comment(s): ,bladder stones,and urinary infection and cellulitis kailyn legs,lymphoma, chemotherapy, radiation,- 06/2011, colitis History of Any Multi-Drug Resistant Organisms: None Reported Past Surgical History: AICD, Coronary Bypass/CABG, Heart Catheterization With Stent, Orthopedic Surgery, Pacemaker Additional Past Surgical History / Comment(s): Lt ankle - plate. sinus surgery s/t cancer. CABG-4 vessels. pacemaker/defib. [facility] upper left chest Past Anesthesia/Blood Transfusion Reactions: No Reported Reaction Additional Past Anesthesia/Blood Transfusion Reaction / Comment(s): no probles with prior blood transfusion Date of Last Stent Placement:: 2001 Type of Cardiac Device: Permanent Pacemaker, AICD Device Placement Date:: 2001 Past Psychological History: No Psychological Hx Reported Smoking Status: Former smoker Past Alcohol Use History: None Reported Additional Past Alcohol Use History / Comment(s): Patient quit smoking in 1967. Past Drug Use History: None Reported - Past Family History Brother(s) Family Medical History: Myocardial Infarction ([place]) Additional Family Medical History / Comment(s): Patient has 3 brothers and one has history of coronary artery disease. Sister(s) Additional Family Medical History / Comment(s): Patient has one sister with history of SVT and AVR. Son(s) Additional Family Medical History / Comment(s): Patient has 2 sons and one has history of kidney stones. Patient does not have any daughters. Patient has a grandson treated for SVT. Father Family Medical History: No Reported History Additional Family Medical History / Comment(s): Father at age 72 with history of coronary artery disease and CABG Mother Family Medical History: No Reported History Additional Family Medical History / Comment(s): Mother at age 93 with history of coronary artery disease. Medications and Allergies Home Medications Medication Instructions Recorded Confirmed Type Levothyroxine Sodium [Synthroid] 100 mcg PO DAILY 08/04/14 05/23/22 History glipiZIDE [Glucotrol XL] 5 mg PO DAILY 08/04/14 05/23/22 History Albuterol Nebulized [Ventolin 2.5 mg INHALATION RT-QID 11/05/16 05/23/22 History Nebulized] Vit C/E/Zn/Coppr/Lutein/Zeaxan 1 cap PO BID 04/22/18 05/23/22 History [Preservision Areds 2 Softgel] Albuterol Inhaler [Ventolin Hfa 2 puff INHALATION RT-QID PRN 07/03/20 05/23/22 History Inhaler] Magnesium Oxide [Mag-Ox] 400 mg PO DAILY #30 tablet 07/05/20 05/23/22 Rx Famotidine [Pepcid] 20 mg PO DAILY 09/19/20 05/23/22 History Acetaminophen Tab [Tylenol] 650 mg PO Q6HR PRN tab 07/30/21 05/23/22 Rx Ipratropium-Albuterol Nebulize 3 ml INHALATION RT-QID each 05/21/22 05/23/22 Rx [Duoneb 0.5 mg-3 mg/3 ml Soln] Metoprolol Succinate (ER) [Toprol 150 mg PO DAILY tab 05/21/22 05/23/22 Rx XL] QUEtiapine [SEROquel] 25 mg PO HS tab 05/21/22 05/23/22 Rx Sodium Bicarbonate Tab 650 mg PO BID tab 05/21/22 05/23/22 Rx Amiodarone [Cordarone] See Taper PO DIRECTED 05/23/22 05/23/22 History Darbepoetin Murali [Aranesp] 40 mcg SQ FR 05/23/22 05/23/22 History Eucerin Cream 1 applic TOPICAL BID 05/23/22 05/23/22 History Glucagon [Gvoke Pfs 1-Pack Syringe] 1 mg SQ Q15M PRN 05/23/22 05/23/22 History Insulin Aspart [NovoLOG Flexpen] See Protocol SQ ACHS 05/23/22 05/23/22 History Insulin Detemir [Levemir Flextouch 20 units SQ BID@0700,1600 05/23/22 05/23/22 History Pen] Insulin Lispro [humaLOG Kwikpen] 4 unit SQ ACHS 05/23/22 05/23/22 History Tamsulosin [Flomax] 0.4 mg PO DAILY 05/23/22 05/23/22 History predniSONE See Taper PO DIRECTED 05/23/22 05/23/22 History Allergies Allergy/AdvReac Type Severity Reaction Status Date / Time esmolol [From Brevibloc] AdvReac "felt like Verified 05/23/22 15:41 I was going to pass out" Physical Exam Vitals: Vital Signs Temp Pulse Resp BP Pulse Ox FiO2 05/24/22 08:10 70 05/24/22 07:56 70 97 2 05/24/22 06:00 60 16 128/60 97 05/24/22 05:00 61 16 121/49 98 05/24/22 04:00 61 16 116/49 98 05/24/22 03:00 61 16 120/48 98 05/24/22 02:00 60 16 104/63 98 05/24/22 01:00 60 16 142/60 98 05/24/22 00:00 68 16 150/71 97 05/23/22 23:00 60 16 134/60 94 L 05/23/22 21:18 97.7 F 62 16 136/77 98 05/23/22 21:17 97.9 F 62 16 136/77 98 05/23/22 21:00 64 16 136/76 98 05/23/22 20:16 97.9 F 60 16 146/54 98 05/23/22 20:00 61 16 146/54 98 05/23/22 19:32 97.9 F 60 16 122/77 99 05/23/22 19:17 65 05/23/22 19:07 60 05/23/22 18:58 61 15 127/63 99 05/23/22 18:38 97.6 F 60 16 99/60 98 05/23/22 18:25 98.1 F 62 15 117/51 98 05/23/22 14:29 97.4 F L 58 L 16 100/71 99 Intake and Output 05/23/22 05/24/22 05/24/22 22:59 06:59 14:59 Intake Total 310 Balance 310 Intake: Blood Product 310 Rc As-1 Unit 310 [id number] Other: Weight 79.379 kg Results CBC & Chem 7: 05/24/22 04:23 05/24/22 04:23 Labs: Abnormal Lab Results - Last 24 Hours (Table) 05/23/22 05/23/22 05/23/22 Range/Units 15:30 15:30 15:30 WBC 15.9 H (3.8-10.6) k/uL RBC 2.02 L (4.30-5.90) m/uL Hgb 6.2 L* D (13.0-17.5) gm/dL Hct 19.3 L* (39.0-53.0) % Plt Count 114 L (150-450) k/uL Neutrophils # 15.3 H (1.3-7.7) k/uL Lymphocytes # 0.3 L (1.0-4.8) k/uL APTT 20.7 L (22.0-30.0) sec Sodium 136 L (137-145) mmol/L Chloride 109 H (98-107) mmol/L Carbon Dioxide 20 L (22-30) mmol/L BUN 130 H* (9-20) mg/dL Creatinine 3.04 H (0.66-1.25) mg/dL Glucose 296 H (74-99) mg/dL POC Glucose (mg/dL) (70-110) mg/dL Plasma Lactic Acid Juancho (0.7-2.0) mmol/L Calcium 6.8 L (8.4-10.2) mg/dL ALT 53 H (4-49) U/L Total Protein 4.9 L (6.3-8.2) g/dL Albumin 2.3 L (3.5-5.0) g/dL Urine Protein (Negative) Urine Glucose (UA) (Negative) Urine Blood (Negative) Ur Leukocyte Esterase (Negative) Urine RBC (0-5) /hpf Urine WBC (0-5) /hpf Urine WBC Clumps (None) /hpf Urine Bacteria (None) /hpf Urine Mucus (None) /hpf Crossmatch 05/23/22 05/23/22 05/23/22 Range/Units 15:30 15:30 16:51 WBC (3.8-10.6) k/uL RBC (4.30-5.90) m/uL Hgb (13.0-17.5) gm/dL Hct (39.0-53.0) % Plt Count (150-450) k/uL Neutrophils # (1.3-7.7) k/uL Lymphocytes # (1.0-4.8) k/uL APTT (22.0-30.0) sec Sodium (137-145) mmol/L Chloride (98-107) mmol/L Carbon Dioxide (22-30) mmol/L BUN (9-20) mg/dL Creatinine (0.66-1.25) mg/dL Glucose (74-99) mg/dL POC Glucose (mg/dL) (70-110) mg/dL Plasma Lactic Acid Juancho 2.2 H* (0.7-2.0) mmol/L Calcium (8.4-10.2) mg/dL ALT (4-49) U/L Total Protein (6.3-8.2) g/dL Albumin (3.5-5.0) g/dL Urine Protein 2+ H (Negative) Urine Glucose (UA) 2+ H (Negative) Urine Blood Large H (Negative) Ur Leukocyte Esterase Large H (Negative) Urine RBC >182 H (0-5) /hpf Urine WBC >182 H (0-5) /hpf Urine WBC Clumps Many H (None) /hpf Urine Bacteria Few H (None) /hpf Urine Mucus Rare H (None) /hpf Crossmatch See Detail 05/23/22 05/23/22 05/24/22 Range/Units 22:18 23:50 04:23 WBC 12.7 H 14.0 H (3.8-10.6) k/uL RBC 2.33 L 2.40 L (4.30-5.90) m/uL Hgb 7.4 L 7.3 L (13.0-17.5) gm/dL Hct 21.6 L 22.6 L (39.0-53.0) % Plt Count 108 L 110 L (150-450) k/uL Neutrophils # 11.9 H 12.9 H (1.3-7.7) k/uL Lymphocytes # 0.4 L 0.8 L (1.0-4.8) k/uL APTT (22.0-30.0) sec Sodium (137-145) mmol/L Chloride (98-107) mmol/L Carbon Dioxide (22-30) mmol/L BUN (9-20) mg/dL Creatinine (0.66-1.25) mg/dL Glucose (74-99) mg/dL POC Glucose (mg/dL) 291 H (70-110) mg/dL Plasma Lactic Acid Juancho (0.7-2.0) mmol/L Calcium (8.4-10.2) mg/dL ALT (4-49) U/L Total Protein (6.3-8.2) g/dL Albumin (3.5-5.0) g/dL Urine Protein (Negative) Urine Glucose (UA) (Negative) Urine Blood (Negative) Ur Leukocyte Esterase (Negative) Urine RBC (0-5) /hpf Urine WBC (0-5) /hpf Urine WBC Clumps (None) /hpf Urine Bacteria (None) /hpf Urine Mucus (None) /hpf Crossmatch 05/24/22 05/24/22 Range/Units 04:23 06:46 WBC (3.8-10.6) k/uL RBC (4.30-5.90) m/uL Hgb (13.0-17.5) gm/dL Hct (39.0-53.0) % Plt Count (150-450) k/uL Neutrophils # (1.3-7.7) k/uL Lymphocytes # (1.0-4.8) k/uL APTT (22.0-30.0) sec Sodium (137-145) mmol/L Chloride 115 H (98-107) mmol/L Carbon Dioxide (22-30) mmol/L BUN 113 H* (9-20) mg/dL Creatinine 2.72 H (0.66-1.25) mg/dL Glucose 174 H (74-99) mg/dL POC Glucose (mg/dL) 161 H (70-110) mg/dL Plasma Lactic Acid Juancho (0.7-2.0) mmol/L Calcium 7.0 L (8.4-10.2) mg/dL ALT (4-49) U/L Total Protein (6.3-8.2) g/dL Albumin (3.5-5.0) g/dL Urine Protein (Negative) Urine Glucose (UA) (Negative) Urine Blood (Negative) Ur Leukocyte Esterase (Negative) Urine RBC (0-5) /hpf Urine WBC (0-5) /hpf Urine WBC Clumps (None) /hpf Urine Bacteria (None) /hpf Urine Mucus (None) /hpf Crossmatch Microbiology - Last 24 Hours (Table) 05/23/22 16:51 Urine Culture - Preliminary Urine,Voided Thrombosis Risk Factor Assmnt - Choose All That Apply Each Risk Factor Represents 3 Points: Age 75 years or older Thrombosis Risk Factor Assessment Total Risk Factor Score: 3 Thrombosis Risk Factor Assessment Level: Moderate Risk Assessment and Plan Time with Patient: Greater than 30
[2022-05-24 16:41] LABS: Glucose,Whole Blood 144 mg/dL (70-110)
[2022-05-24 20:08] LABS: Glucose,Whole Blood 122 mg/dL (70-110)
[2022-05-24] MEDS: QUEtiapine 25 MG TAB PO SCH (20:55)
[2022-05-24] MEDS ORDERED: DEXTROSE 50% SYRINGE 50 ML IVP ONE (23:50)
[2022-05-24 23:53] LABS: Glucose,Whole Blood 43 mg/dL (70-110)
[2022-05-25 00:12] LABS: Glucose,Whole Blood 144 mg/dL (70-110)
[2022-05-25 06:14] LABS: Glucose,Whole Blood <20 mg/dL (70-110)
[2022-05-25] MEDS ORDERED: DEXTROSE 50% SYRINGE 50 ML IVP ONE ×2 (06:14→08:55)
[2022-05-25] MEDS ORDERED: GLUCAGON 1 MG/ML VIAL ONE (06:15)
[2022-05-25 06:28] LABS: Glucose,Whole Blood 186 mg/dL (70-110)
[2022-05-25] MEDS: IPRATROPIUM-ALBUTEROL 3 ML NEB INHALATION SCH ×4 (07:15→20:55)
[2022-05-25] MEDS: LEVOTHYROXINE 100 MCG TAB PO SCH (07:29)
[2022-05-25] MEDS: INSULIN DETEMIR (LEVEMIR) 100 UNIT/ML SYR SQ SCH ×2 (07:29→16:59)
[2022-05-25] MEDS: INSULIN ASPART (NovoLOG) 100 UNIT/ML VIAL SQ SCH ×4 (07:29→20:55)
[2022-05-25 07:58] LABS: Basophils % (A) 0 %; Eosinophils % (A) 0 %; HCT 22.8 % (39.0-53.0); HGB 7.3 gm/dL (13.0-17.5); Hypochromasia Slight; Lymphocytes # (A) 0.5 k/uL (1.0-4.8); Lymphocytes % (A) 3 %; MCH 30.7 pg (25.0-35.0); MCHC 32.2 g/dL (31.0-37.0); MCV 95.4 fL (80.0-100.0); Mean Platelet Volume 10.2; Monocytes # (A) 0.2 k/uL (0-1.0); Monocytes % (A) 2 %; Neutrophils % (A) 95 %; Platelet Count 125 k/uL (150-450); RBC 2.39 m/uL (4.30-5.90); RDW 13.9 % (11.5-15.5); WBC 14.8 k/uL (3.8-10.6)
[2022-05-25 08:00] LABS: African American GFR (CKD) 24 (>60 ml/min/1.73 sqM); Anion Gap 4 mmol/L; Blood Urea Nitrogen 94 mg/dL (9-20); Carbon Dioxide 23 mmol/L (22-30); Chloride 117 mmol/L (98-107); Glucose 113 mg/dL (74-99); Non-African American GFR(CKD) 21 (>60 ml/min/1.73 sqM); Potassium 3.8 mmol/L (3.5-5.1); Sodium 144 mmol/L (137-145)
[2022-05-25] MEDS: METOPROLOL SUCCINATE (ER) 50 MG TAB.ER.24H PO SCH (08:45)
[2022-05-25] MEDS: PANTOPRAZOLE 40 MG/10 ML VIAL IVP SCH (08:49)
[2022-05-25] MEDS: FAMOTIDINE 20 MG TAB PO SCH (09:08)
[2022-05-25] MEDS: MAGNESIUM OXIDE 400 MG TAB PO SCH (09:08)
[2022-05-25] MEDS: SODIUM BICARBONATE TAB 650 MG TAB PO SCH ×2 (09:08→20:55)
[2022-05-25] MEDS: VIT A,C & E-LUTEIN-MINERALS 1 EACH TAB PO SCH ×2 (09:08→20:55)
[2022-05-25] MEDS: TAMSULOSIN 0.4 MG CAP.ER.24H PO SCH (09:08)
[2022-05-25 09:18] LABS: Glucose,Whole Blood 235 mg/dL (70-110)
[2022-05-25 09:18] LABS: Glucose,Whole Blood 41 mg/dL (70-110)
[2022-05-25 10:58] LABS: Glucose,Whole Blood 172 mg/dL (70-110)
--- NOTE | 2022-05-25 11:15 | P.NPCON ---
History of Present Illness - Reason for Consult acute renal failure - History of Present Illness Patient is an 81-year-old male who [facility] significant bleeding in the Mcgovern catheter. There was also concern for blood in his stools. Patient was recently discharged from the hospital on 05/21/2022 after hospitalization for RSV infection, atrial flutter with acute kidney injury and urine retention. Mcgovern catheter was placed during his last visit. Serum creatinine had peaked at about 3.2 mg/dL and decrease to 2.9 mg/dL at the time of discharge. Patient does have chronic kidney disease with serum creatinine of at about 1.9-2 mg/dL in July 2021. Blood pressure is on the lower side this admission. 24 hour urine documented at 1.1 L. Currently not on any IV fluids Patient was evaluated by urology and there are no plans for intervention at this time. Patient had been on Plavix and has had hematuria since his last admission. This is improving as per urology. Patient is not able to give a detailed history Review of Systems As per HPI Past Medical History Past Medical History: Asthma, Coronary Artery Disease (CAD), Cancer, Diabetes Mellitus, Hyperlipidemia, Hypertension, Thyroid Disorder Additional Past Medical History / Comment(s): ,bladder stones,and urinary infection and cellulitis kailyn legs,lymphoma, chemotherapy, radiation,- 06/2011, colitis History of Any Multi-Drug Resistant Organisms: None Reported Past Surgical History: AICD, Coronary Bypass/CABG, Heart Catheterization With Stent, Orthopedic Surgery, Pacemaker Additional Past Surgical History / Comment(s): Lt ankle - plate. sinus surgery s/t cancer. CABG-4 vessels. pacemaker/defib. [facility] upper left chest Past Anesthesia/Blood Transfusion Reactions: No Reported Reaction Additional Past Anesthesia/Blood Transfusion Reaction / Comment(s): no probles with prior blood transfusion Date of Last Stent Placement:: 2001 Type of Cardiac Device: Permanent Pacemaker, AICD Device Placement Date:: 2001 Past Psychological History: No Psychological Hx Reported Smoking Status: Former smoker Past Alcohol Use History: None Reported Additional Past Alcohol Use History / Comment(s): Patient quit smoking in 1967. Past Drug Use History: None Reported - Past Family History Brother(s) Family Medical History: Myocardial Infarction ([place]) Additional Family Medical History / Comment(s): Patient has 3 brothers and one has history of coronary artery disease. Sister(s) Additional Family Medical History / Comment(s): Patient has one sister with history of SVT and AVR. Son(s) Additional Family Medical History / Comment(s): Patient has 2 sons and one has history of kidney stones. Patient does not have any daughters. Patient has a grandson treated for SVT. Father Family Medical History: No Reported History Additional Family Medical History / Comment(s): Father at age 72 with history of coronary artery disease and CABG Mother Family Medical History: No Reported History Additional Family Medical History / Comment(s): Mother at age 93 with history of coronary artery disease. Medications and Allergies Home Medications Medication Instructions Recorded Confirmed Type Levothyroxine Sodium [Synthroid] 100 mcg PO DAILY 08/04/14 05/23/22 History glipiZIDE [Glucotrol XL] 5 mg PO DAILY 08/04/14 05/23/22 History Albuterol Nebulized [Ventolin 2.5 mg INHALATION RT-QID 11/05/16 05/23/22 History Nebulized] Vit C/E/Zn/Coppr/Lutein/Zeaxan 1 cap PO BID 04/22/18 05/23/22 History [Preservision Areds 2 Softgel] Albuterol Inhaler [Ventolin Hfa 2 puff INHALATION RT-QID PRN 07/03/20 05/23/22 History Inhaler] Magnesium Oxide [Mag-Ox] 400 mg PO DAILY #30 tablet 07/05/20 05/23/22 Rx Famotidine [Pepcid] 20 mg PO DAILY 09/19/20 05/23/22 History Acetaminophen Tab [Tylenol] 650 mg PO Q6HR PRN tab 07/30/21 05/23/22 Rx Ipratropium-Albuterol Nebulize 3 ml INHALATION RT-QID each 05/21/22 05/23/22 Rx [Duoneb 0.5 mg-3 mg/3 ml Soln] Metoprolol Succinate (ER) [Toprol 150 mg PO DAILY tab 05/21/22 05/23/22 Rx XL] QUEtiapine [SEROquel] 25 mg PO HS tab 05/21/22 05/23/22 Rx Sodium Bicarbonate Tab 650 mg PO BID tab 05/21/22 05/23/22 Rx Amiodarone [Cordarone] See Taper PO DIRECTED 05/23/22 05/23/22 History Darbepoetin Murali [Aranesp] 40 mcg SQ FR 05/23/22 05/23/22 History Eucerin Cream 1 applic TOPICAL BID 05/23/22 05/23/22 History Glucagon [Gvoke Pfs 1-Pack Syringe] 1 mg SQ Q15M PRN 05/23/22 05/23/22 History Insulin Aspart [NovoLOG Flexpen] See Protocol SQ ACHS 05/23/22 05/23/22 History Insulin Detemir [Levemir Flextouch 20 units SQ BID@0700,1600 05/23/22 05/23/22 History Pen] Insulin Lispro [humaLOG Kwikpen] 4 unit SQ ACHS 05/23/22 05/23/22 History Tamsulosin [Flomax] 0.4 mg PO DAILY 05/23/22 05/23/22 History predniSONE See Taper PO DIRECTED 05/23/22 05/23/22 History Allergies Allergy/AdvReac Type Severity Reaction Status Date / Time esmolol [From Brevibloc] AdvReac "felt like Verified 05/23/22 15:41 I was going to pass out" Physical Exam Vitals: Vital Signs Temp Pulse Pulse Resp BP Pulse Ox 05/25/22 08:54 60 21 05/25/22 07:26 66 05/25/22 07:18 95.5 F L 60 21 99/53 97 05/25/22 07:16 62 96 05/25/22 02:00 98.0 F 53 L 16 117/49 96 05/24/22 20:13 64 05/24/22 20:00 98.4 F 61 16 109/44 91 L 05/24/22 19:49 60 96 05/24/22 16:48 64 05/24/22 16:35 64 05/24/22 12:00 57 L 128/56 96 05/24/22 11:06 60 Intake and Output 05/24/22 05/25/22 05/25/22 22:59 06:59 14:59 Output Total 500 650 Balance -500 -650 Output: Urine 500 650 Other: Voiding Method Indwelling Catheter Indwelling Catheter # Bowel Movements 1 Patient is awake, comfortable. Examination of the heart S1 and S2 Examination of the lungs decreased breath sounds at the bases Abdomen is soft nontender Examination lower extremity shows no significant edema Results - Lab Results Most recent lab results Calcium 7.0 mg/dL (8.4-10.2) L 05/25/22 06:34 Magnesium 2.2 mg/dL (1.6-2.3) 05/23/22 15:30 05/25/22 06:34 05/25/22 06:34 Assessment and Plan Assessment: 1. Acute kidney injury, ATN and obstructive uropathy from last admission currently improving. Serum creatinine had peaked at about 3.2 mg/dL during his last admission. Ultrasound showed bilateral moderate hydronephrosis. Mcgovern catheter was placed last admission. 2. 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 Hematuria, mostly traumatic 4. Anemia associated with significant hematuria, status post packed RBCs transfusion. 5. History of GI bleed with stool for occult blood positive this admission 6. Anemia of chronic disease maintained on Aranesp Plan: Repeat labs in a.m. Continue with Mcgovern catheter Monitor CBC Check iron profile
[2022-05-25 11:53] LABS: Glucose,Whole Blood 215 mg/dL (70-110)
[2022-05-25] MEDS: CALCIUM CARBONATE 500 MG CHEWABLE PO SCH ×3 (12:06→20:55)
[2022-05-25 13:51] LABS: Glucose,Whole Blood 161 mg/dL (70-110)
[2022-05-25 14:31] LABS: Glucose,Whole Blood 166 mg/dL (70-110)
[2022-05-25 16:50] LABS: Glucose,Whole Blood 189 mg/dL (70-110)
[2022-05-25 16:55] LABS: % Iron Saturation 7.33 (15.00-50.00)
[2022-05-25 20:50] LABS: Glucose,Whole Blood 201 mg/dL (70-110)
[2022-05-25] MEDS: QUEtiapine 25 MG TAB PO SCH (20:55)
--- NOTE | 2022-05-26 01:45 | P.PN ---
Subjective Progress Note Date: 05/25/22 This is a 81-year-old male who presented to the emergency department from [facility] With concerns of bleeding noted and the Mcgovern with hematuria and also possible blood in the stool. Patient had been recently discharged with RSV, atrial flutter, acute kidney injury and retention requiring indwelling Mcgovern catheter placement. Patient had been evaluated by urology along with nephrology during last admission a few days ago and stable recommending outpatient follow- up with urology and continue with indwelling Mcgovern catheter. Hemoglobin had been stable in the low 11/29 and does have a history of anemia. Patient also with a significant past medical history of asthma/COPD, coronary artery disease, CAB G, pacemaker, diabetes mellitus, hypertension, hypothyroid and follows with Dr. Samuel Venegas in the outpatient setting. Patient with significant weakness seen by physical therapy recommending rehab in the first patient wanted to go home although was agreeable to rehab and was sent there with continued indwelling Mcgovern catheter and instructed to have outpatient follow-up with urology. Patient was started on Aranesp and anticoagulation was on hold due to the hematuria. Patient was on a prednisone taper along with DuoNeb treatments oral amiodarone that was on a taper along with Flomax. Patient admitted for general surgery consultation along with urology for hematuria and possible GI bleed. Labs reviewed on admission show a WBC of 12.7 most likely reactive as patient had been on IV steroids and recently transitioned oral prednisone, hemoglobin was 7.4, platelets low and have been low at 108, sodium was 136 with a potassium of 5.1, BUN that has been persistently high was 1:30 with a creatinine of 3.04, hyperglycemia noted and patient had a plasma lactic acid level of 2.2. Occult stool was positive. Chest x-ray revealed post CABG changes with left sided AICD noted and COPD with no acute process noted. EKG with an electronic atrial paced with a prolonged QT interval of 484. 05/25/2022 Patient is seen and evaluated in follow-up this morning lethargic although easily arousable. Patient did have episodes of hypoglycemia most likely due to poor oral intake and recommended to monitor Accu-Cheks before meals and at bedtime and as needed closely. Urology and nephrology following and recommend continue Mcgovern catheter. Iron studies being ordered. Patient's hematuria is n oted to be improving. Recommend aspiration precautions with head of the bed elevated 45 and supervision with meals. Recommended thickened liquids. Patient is currently afebrile denies chest pain or shortness of breath. Patient does have intermittent periods of confusion and is a poor historian. This is his baseline. Review of systems: Constitutional: reports of fatigue, no fever, or chills Cardiovascular: No reports of chest pain or palpitations Respiratory: No reports of worsening shortness of breath or cough GI: No reports of nausea, vomiting, or diarrhea : No reports of dysuria or retention Neurovascular: reports of generalized weakness All medications have been reviewed PHYSICAL EXAMINATION: GENERAL: The patient is alert and oriented x2-3, poor historian, cachectic, il l-appearing, pale HEENT: Pupils are round and equally reacting to light. EOMI. no scleral icterus. No conjunctival pallor. Normocephalic, atraumatic. No pharyngeal erythema. No thyromegaly. CARDIOVASCULAR: S1 and S2 muffled , Irregular PULMONARY: diminished breath sounds bilaterally with no wheezin, some scattered noted. ABDOMEN: soft. Nontender on exam. non-distended, normoactive bowel sounds. No palpable organomegaly. MUSCULOSKELETAL: No joint swelling or deformity. EXTREMITIES: No cyanosis, clubbing generalized lower edema noted NEUROLOGICAL: Gross neurological examination did not reveal any focal deficits. Diffuse weakness SKIN: No rashes. Pale Assessment: Hematuria most likely secondary to trauma from insertion of indwelling Mcgovern catheter History of recent admission with hematuria and acute kidney injury Acute on chronic hypoxic respiratory failure secondary to COPD, chronically wears 2-3 L outpatient Chronic anemia most likely due to chronic kidney disease Leukocytosis, most likely reactive from steroids Diabetes mellitus, uncontrolled, insulin-dependent with hyperglycemia Lactic acidosis secondary to dehydration Possible acute GI bleed, although suspicion is low and surgery was consulted and pending Recent hospitalization for RSV Atrial flutter GI prophylaxis DVT prophylaxis, SCDs, anticoagulation on hold due to hematuria No code Plan: Recommend to continue with current medications and management with general surgery Dr. Cardenas and also urology following. Patient with noted hematuria and had indwelling Mcgovern catheter placed during last admission 3 days ago 2 due to urinary retention and did have some trauma with the catheter placement, hematuria noted to be improving Patient was also on anticoagulation although due to bleeding was stopped as p atguillermina has atrial flutter and does have an AICD pacemaker Discussed with patient about CODE STATUS and patient will be no code Continue indwelling Mcgovern catheter and will monitor for worsening hematuria, hemoglobin is currently stable and urology recommended to continue with Mcgovern catheter and irrigate as needed Recommend monitoring Accu-Cheks before meals and at bedtime and as needed and will continue current medication regimen. Patient with extremely uncontrolled blood sugars recommend to monitor closely as patient was having episodes of hypoglycemia. Patient with fair oral intake although does not eat much and needs encouragement with meals Recommend aspiration precautions with elevated 30-45 possibly thickened liquids as patient is having some episodes of choking on water. Continue prednisone taper patient was initially on Will follow-up with repeat labs and transfuse as loss 7. Iron studies ordered with nephrology following and pending at this time. had been started on Aranesp Due to multiple complex medical issues, prognosis is guarded we'll follow-up with repeat labs. Will need to discuss with case management about discharge planning with possible return to [facility] for continued rehab The impression and plan of care has been dictated by Yaquelin Frances, nurse practitioner as directed. Dr. Chucho MD I have performed a history and examination and MDM of this patient, discussed the same with the dictator, and agree with the dictator's assessment and plan as written ,documented as a scribe. Based on total visit time, I have performed more than 50% of the visit. Any additional findings or plans will be noted. Objective - Vital Signs Vital signs: Vital Signs Temp 98.0 F 05/25/22 02:00 Pulse 66 05/25/22 07:26 Resp 16 05/25/22 02:00 BP 117/49 05/25/22 02:00 Pulse Ox 96 05/25/22 07:16 FiO2 2 05/24/22 07:56 Intake & Output 05/24/22 05/25/22 05/25/22 18:59 06:59 18:59 Intake Total 200 Output Total 500 650 Balance -300 -650 Intake: IV 20 Invasive Line 1 20 Oral 180 Output: Urine 500 650 Other: Voiding Method Indwelling Catheter Indwelling Catheter # Bowel Movements 1 - Labs CBC & Chem 7: 05/25/22 06:34 05/25/22 06:34 Labs: Abnormal Lab Results - Last 24 Hours (Table) 05/24/22 05/24/22 05/24/22 Range/Units 12:25 13:23 16:40 WBC (3.8-10.6) k/uL RBC (4.30-5.90) m/uL Hgb (13.0-17.5) gm/dL Hct (39.0-53.0) % Plt Count (150-450) k/uL Neutrophils # (1.3-7.7) k/uL Lymphocytes # (1.0-4.8) k/uL Chloride (98-107) mmol/L BUN (9-20) mg/dL Creatinine (0.66-1.25) mg/dL Glucose (74-99) mg/dL POC Glucose (mg/dL) 143 H 112 H 144 H (70-110) mg/dL Calcium (8.4-10.2) mg/dL 05/24/22 05/24/22 05/25/22 Range/Units 20:05 23:49 00:11 WBC (3.8-10.6) k/uL RBC (4.30-5.90) m/uL Hgb (13.0-17.5) gm/dL Hct (39.0-53.0) % Plt Count (150-450) k/uL Neutrophils # (1.3-7.7) k/uL Lymphocytes # (1.0-4.8) k/uL Chloride (98-107) mmol/L BUN (9-20) mg/dL Creatinine (0.66-1.25) mg/dL Glucose (74-99) mg/dL POC Glucose (mg/dL) 122 H 43 L 144 H (70-110) mg/dL Calcium (8.4-10.2) mg/dL 05/25/22 05/25/22 05/25/22 Range/Units 06:13 06:27 06:34 WBC 14.8 H (3.8-10.6) k/uL RBC 2.39 L (4.30-5.90) m/uL Hgb 7.3 L (13.0-17.5) gm/dL Hct 22.8 L (39.0-53.0) % Plt Count 125 L (150-450) k/uL Neutrophils # 14.0 H (1.3-7.7) k/uL Lymphocytes # 0.5 L (1.0-4.8) k/uL Chloride (98-107) mmol/L BUN (9-20) mg/dL Creatinine (0.66-1.25) mg/dL Glucose (74-99) mg/dL POC Glucose (mg/dL) <20 L 186 H (70-110) mg/dL Calcium (8.4-10.2) mg/dL 05/25/22 05/25/22 05/25/22 Range/Units 06:34 08:54 09:07 WBC (3.8-10.6) k/uL RBC (4.30-5.90) m/uL Hgb (13.0-17.5) gm/dL Hct (39.0-53.0) % Plt Count (150-450) k/uL Neutrophils # (1.3-7.7) k/uL Lymphocytes # (1.0-4.8) k/uL Chloride 117 H (98-107) mmol/L BUN 94 H (9-20) mg/dL Creatinine 2.73 H (0.66-1.25) mg/dL Glucose 113 H (74-99) mg/dL POC Glucose (mg/dL) 41 L 235 H (70-110) mg/dL Calcium 7.0 L (8.4-10.2) mg/dL
[2022-05-26 01:59] LABS: Glucose,Whole Blood 83 mg/dL (70-110)
[2022-05-26] MEDS: INSULIN ASPART (NovoLOG) 100 UNIT/ML VIAL SQ SCH ×4 (06:14→21:57)
[2022-05-26] MEDS: INSULIN DETEMIR (LEVEMIR) 100 UNIT/ML SYR SQ SCH ×2 (06:14→15:42)
[2022-05-26] MEDS: LEVOTHYROXINE 100 MCG TAB PO SCH (06:18)
[2022-05-26 06:20] LABS: Glucose,Whole Blood 139 mg/dL (70-110)
[2022-05-26] MEDS: MAGNESIUM OXIDE 400 MG TAB PO SCH (08:20)
[2022-05-26] MEDS: IPRATROPIUM-ALBUTEROL 3 ML NEB INHALATION SCH ×4 (08:20→21:29)
[2022-05-26] MEDS: METOPROLOL SUCCINATE (ER) 50 MG TAB.ER.24H PO SCH (08:20)
[2022-05-26] MEDS: TAMSULOSIN 0.4 MG CAP.ER.24H PO SCH (08:20)
[2022-05-26] MEDS: FAMOTIDINE 20 MG TAB PO SCH (08:20)
[2022-05-26] MEDS: VIT A,C & E-LUTEIN-MINERALS 1 EACH TAB PO SCH ×2 (08:20→20:40)
[2022-05-26] MEDS: SODIUM BICARBONATE TAB 650 MG TAB PO SCH ×2 (08:20→20:40)
[2022-05-26] MEDS: CALCIUM CARBONATE 500 MG CHEWABLE PO SCH ×2 (08:20→20:40)
[2022-05-26] MEDS: PANTOPRAZOLE 40 MG/10 ML VIAL IVP SCH (09:32)
[2022-05-26 09:55] LABS: African American GFR (CKD) 27.1 (60.0-200.0); Anion Gap 7.4 mmol/L (10.00-18.00); BUN/Creat Ratio 29.64 Ratio (12.00-20.00); Blood Urea Nitrogen 74.1 mg/dL (9.0-27.0); Calcium 7.3 mg/dL (8.7-10.3); Carbon Dioxide 21.6 mmol/L (20.0-27.5); Magnesium 2.2 mg/dL (1.5-2.4); Non-African American GFR(CKD) 23.4 (60.0-200.0); Potassium 4.5 mmol/L (3.5-5.5)
[2022-05-26] MEDS: SODIUM FERRIC GLUCONAT-SUCROSE 125 MG in SODIUM CHLORIDE 0.9% 100 ML IVPB SCH (10:03)
--- NOTE | 2022-05-26 10:09 | P.PN ---
Subjective Progress Note Date: 05/26/22 No acute overnight events, urine is clear this morning. Hemoglobin is stable Objective - Vital Signs Vital signs: Vital Signs Temp 98.8 F 05/26/22 08:00 Pulse 64 05/26/22 08:29 Resp 15 05/26/22 08:00 BP 100/47 05/26/22 08:00 Pulse Ox 96 05/26/22 08:00 FiO2 2 05/24/22 07:56 Intake & Output 05/25/22 05/26/22 05/26/22 18:59 06:59 18:59 Intake Total 180 Output Total 550 700 Balance -370 -700 Intake: Oral 180 Output: Urine 550 700 Other: Voiding Method Indwelling Catheter Indwelling Catheter Indwelling Catheter # Bowel Movements 1 1 - Labs CBC & Chem 7: 05/25/22 06:34 05/26/22 04:15 Labs: Abnormal Lab Results - Last 24 Hours (Table) 05/25/22 05/25/22 05/25/22 Range/Units 06:34 10:54 11:51 Chloride (96-109) mmol/L Anion Gap (10.00-18.00) mmol/L BUN (9.0-27.0) mg/dL Creatinine (0.6-1.5) mg/dL Est GFR (CKD-EPI)AfAm (60.0-200.0) Est GFR (CKD-EPI)NonAf (60.0-200.0) BUN/Creatinine Ratio (12.00-20.00) Ratio POC Glucose (mg/dL) 172 H 215 H (70-110) mg/dL Calcium (8.7-10.3) mg/dL Iron 12 L (65-175) ug/dL TIBC 162 L (228-460) ug/dL % Saturation 7.33 L (15.00-50.00) Transferrin 116.0 L (204.0-354.0) mg/dL 05/25/22 05/25/22 05/25/22 Range/Units 13:49 14:29 16:48 Chloride (96-109) mmol/L Anion Gap (10.00-18.00) mmol/L BUN (9.0-27.0) mg/dL Creatinine (0.6-1.5) mg/dL Est GFR (CKD-EPI)AfAm (60.0-200.0) Est GFR (CKD-EPI)NonAf (60.0-200.0) BUN/Creatinine Ratio (12.00-20.00) Ratio POC Glucose (mg/dL) 161 H 166 H 189 H (70-110) mg/dL Calcium (8.7-10.3) mg/dL Iron (65-175) ug/dL TIBC (228-460) ug/dL % Saturation (15.00-50.00) Transferrin (204.0-354.0) mg/dL 05/25/22 05/26/22 05/26/22 Range/Units 20:43 04:15 06:10 Chloride 113 H (96-109) mmol/L Anion Gap 7.40 L (10.00-18.00) mmol/L BUN 74.1 H (9.0-27.0) mg/dL Creatinine 2.5 H (0.6-1.5) mg/dL Est GFR (CKD-EPI)AfAm 27.1 L (60.0-200.0) Est GFR (CKD-EPI)NonAf 23.4 L (60.0-200.0) BUN/Creatinine Ratio 29.64 H (12.00-20.00) Ratio POC Glucose (mg/dL) 201 H 139 H (70-110) mg/dL Calcium 7.3 L (8.7-10.3) mg/dL Iron (65-175) ug/dL TIBC (228-460) ug/dL % Saturation (15.00-50.00) Transferrin (204.0-354.0) mg/dL Microbiology - Last 24 Hours (Table) 05/23/22 16:51 Urine Culture - Preliminary Urine,Voided Presumptive Staph aureus Assessment and Plan Assessment: 81-year-old male with gross hematuria most likely secondary to trauma from catheter. Urine is clear this morning. Hemoglobin stable -Irrigate mcgarry catheter as needed -continue flomax -Continue to hold Plavix for now, we will reassess tomorrow -Catheter can be removed tomorrow 6 am, please check postvoid residual after patient voids
[2022-05-26 10:18] LABS: Basophils # (A) 0.01 X 10*3/uL (0.00-0.10); Basophils % (A) 0.1 %; Eosinophils # (A) 0.16 X 10*3/uL (0.04-0.35); Eosinophils % (A) 1.6 %; Immature Grans, Automated 0.6 %; Lymphocytes # (A) 1.26 X 10*3/uL (0.90-5.00); Lymphocytes % (A) 12.9 %; Monocytes # (A) 0.41 X 10*3/uL (0.20-1.00); Monocytes % (A) 4.2 %; NRBC Per 100 WBC 0 /100 WBCS (0.0-0.0); Neutrophils # (A) 7.89 X 10*3/uL (1.80-7.70); Neutrophils % (A) 80.6 %
[2022-05-26 10:19] LABS: Elliptocytes 2+; HGB 6.4 g/dL (13.0-17.0); MCHC 30.5 g/dL (32.0-37.0); MCV 98.6 fL (80.0-97.0); Mean Platelet Volume 11.2 fL (9.5-12.2); Platelet Count 110 X 10*3/uL (140-440); RBC 2.13 X 10*6/uL (4.40-5.60); RDW 13.5 % (11.5-14.5); WBC 9.79 X 10*3/uL (4.50-10.00)
[2022-05-26 11:17] LABS: Glucose,Whole Blood 267 mg/dL (70-110)
--- NOTE | 2022-05-26 11:17 | P.PN ---
Subjective Patient is seen for follow-up for acute kidney injury and chronic kidney disease. He was admitted to the hospital with hematuria. Patient has an i ndwelling Mcgovern catheter for obstructive uropathy. Hematuria seems to have resolved. Urine in the Mcgovern bag appears to be yellow and clear. Serum creatinine down to 2.5 mg/dL today. Overall patient is feeling better and there are plans for possible discharge today back to rehab. Objective - Vital Signs Vital signs: Vital Signs Temp 98.8 F 05/26/22 08:00 Pulse 64 05/26/22 08:29 Resp 15 05/26/22 08:00 BP 100/47 05/26/22 08:00 Pulse Ox 96 05/26/22 08:00 FiO2 2 05/24/22 07:56 Intake & Output 05/25/22 05/26/22 05/26/22 18:59 06:59 18:59 Intake Total 180 Output Total 550 700 Balance -370 -700 Intake: Oral 180 Output: Urine 550 700 Other: Voiding Method Indwelling Catheter Indwelling Catheter Indwelling Catheter # Bowel Movements 1 1 - Exam Awake, comfortable, no acute distress Examination of the heart S1 and S2 Examination lungs bilateral breath sounds are heard Abdomen is soft nontender Examination lower extremity shows chronic skin changes no significant edema noted bilaterally LINE SUPERVISOR exam 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 - Labs CBC & Chem 7: 05/26/22 04:15 05/26/22 04:15 Labs: Abnormal Lab Results - Last 24 Hours (Table) 05/25/22 05/25/22 05/25/22 Range/Units 06:34 11:51 13:49 RBC (4.40-5.60) X 10*6/uL Hgb (13.0-17.0) g/dL Hct (39.6-50.0) % MCV (80.0-97.0) fL MCHC (32.0-37.0) g/dL Plt Count (140-440) X 10*3/uL Plt Count Comment Immature Gran # (0.00-0.04) X 10*3/uL Neutrophils # (1.80-7.70) X 10*3/uL Chloride (96-109) mmol/L Anion Gap (10.00-18.00) mmol/L BUN (9.0-27.0) mg/dL Creatinine (0.6-1.5) mg/dL Est GFR (CKD-EPI)AfAm (60.0-200.0) Est GFR (CKD-EPI)NonAf (60.0-200.0) BUN/Creatinine Ratio (12.00-20.00) Ratio POC Glucose (mg/dL) 215 H 161 H (70-110) mg/dL Calcium (8.7-10.3) mg/dL Iron 12 L (65-175) ug/dL TIBC 162 L (228-460) ug/dL % Saturation 7.33 L (15.00-50.00) Transferrin 116.0 L (204.0-354.0) mg/dL 05/25/22 05/25/22 05/25/22 Range/Units 14:29 16:48 20:43 RBC (4.40-5.60) X 10*6/uL Hgb (13.0-17.0) g/dL Hct (39.6-50.0) % MCV (80.0-97.0) fL MCHC (32.0-37.0) g/dL Plt Count (140-440) X 10*3/uL Plt Count Comment Immature Gran # (0.00-0.04) X 10*3/uL Neutrophils # (1.80-7.70) X 10*3/uL Chloride (96-109) mmol/L Anion Gap (10.00-18.00) mmol/L BUN (9.0-27.0) mg/dL Creatinine (0.6-1.5) mg/dL Est GFR (CKD-EPI)AfAm (60.0-200.0) Est GFR (CKD-EPI)NonAf (60.0-200.0) BUN/Creatinine Ratio (12.00-20.00) Ratio POC Glucose (mg/dL) 166 H 189 H 201 H (70-110) mg/dL Calcium (8.7-10.3) mg/dL Iron (65-175) ug/dL TIBC (228-460) ug/dL % Saturation (15.00-50.00) Transferrin (204.0-354.0) mg/dL 05/26/22 05/26/22 05/26/22 Range/Units 04:15 04:15 06:10 RBC 2.13 L (4.40-5.60) X 10*6/uL Hgb 6.4 L* (13.0-17.0) g/dL Hct 21.0 L (39.6-50.0) % MCV 98.6 H (80.0-97.0) fL MCHC 30.5 L (32.0-37.0) g/dL Plt Count 110 L (140-440) X 10*3/uL Plt Count Comment DECREASED A Immature Gran # 0.06 H (0.00-0.04) X 10*3/uL Neutrophils # 7.89 H (1.80-7.70) X 10*3/uL Chloride 113 H (96-109) mmol/L Anion Gap 7.40 L (10.00-18.00) mmol/L BUN 74.1 H (9.0-27.0) mg/dL Creatinine 2.5 H (0.6-1.5) mg/dL Est GFR (CKD-EPI)AfAm 27.1 L (60.0-200.0) Est GFR (CKD-EPI)NonAf 23.4 L (60.0-200.0) BUN/Creatinine Ratio 29.64 H (12.00-20.00) Ratio POC Glucose (mg/dL) 139 H (70-110) mg/dL Calcium 7.3 L (8.7-10.3) mg/dL Iron (65-175) ug/dL TIBC (228-460) ug/dL % Saturation (15.00-50.00) Transferrin (204.0-354.0) mg/dL Microbiology - Last 24 Hours (Table) 05/23/22 16:51 Urine Culture - Preliminary Urine,Voided Presumptive Staph aureus Assessment and Plan Assessment: 1. Acute kidney injury, ATN and obstructive uropathy from last admission currently improving. Serum creatinine had peaked at about 3.2 mg/dL during his last admission. Ultrasound showed bilateral moderate hydronephrosis. Mcgovern catheter was placed last admission. Creatinine down to 2.5 today 2. 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 Hematuria, mostly traumatic 4. Anemia associated with significant hematuria, status post packed RBCs transfusion. 5. History of GI bleed with stool for occult blood positive this admission 6. Anemia of chronic disease maintained on Aranesp Plan: . Continue with Mcgovern catheter Monitor CBC IV iron
[2022-05-26 12:07] LABS: Basophils % (A) 0 %; Eosinophils # (A) 0.2 k/uL (0-0.7); Eosinophils % (A) 2 %; Hypochromasia Slight; Lymphocytes # (A) 1.2 k/uL (1.0-4.8); Lymphocytes % (A) 15 %; MCH 31.6 pg (25.0-35.0); MCHC 33.2 g/dL (31.0-37.0); MCV 95.1 fL (80.0-100.0); Mean Platelet Volume 9.2; Monocytes # (A) 0.3 k/uL (0-1.0); Monocytes % (A) 4 %; Neutrophils # (A) 6.6 k/uL (1.3-7.7); Neutrophils % (A) 79 %; RBC 1.96 m/uL (4.30-5.90); RDW 13.9 % (11.5-15.5); WBC 8.3 k/uL (3.8-10.6)
[2022-05-26 12:13] LABS: HCT 18.6 % (39.0-53.0); HGB 6.2 gm/dL (13.0-17.5)
[2022-05-26 13:31] LABS: Platelet Count 100 k/uL (150-450)
[2022-05-26 16:31] LABS: Glucose,Whole Blood 255 mg/dL (70-110)
[2022-05-26] MEDS: DAPTOmycin 350 MG in SODIUM CHLORIDE 0.9% 50 ML IVPB SCH (17:00)
[2022-05-26 17:22] LABS: Appearance,Urine Turbid (Clear); Bacteria,Urine Many /hpf; Bilirubin,Urine Negative (Negative); Blood,Urine Large (Negative); Color,Urine Yellow; Glucose,Urine (UA) Trace (Negative); Ketones,Urine Negative (Negative); Leukocyte Esterase,Urine Large (Negative); Mucus,Urine Rare /hpf; Nitrite,Urine Positive (Negative); PH, Urine 6.5 (5.0-8.0); Protein,Urine 2+ (Negative); RBC,Urine >182 /hpf (0-5); Specific Gravity,Urine 1.018 (1.001-1.035); Urobilinogen,Urine <2.0 mg/dL (<2.0); WBC,Urine >182 /hpf (0-5)
[2022-05-26] MEDS: QUEtiapine 25 MG TAB PO SCH (20:40)
[2022-05-26] MEDS ORDERED: FUROSEMIDE 10 MG/ML 2 ML VIAL IV STA (20:47)
--- NOTE | 2022-05-26 20:52 | P.PN ---
Subjective Progress Note Date: 05/26/22 This is a 81-year-old male who presented to the emergency department from [facility] With concerns of bleeding noted and the Mcgovern with hematuria and also possible blood in the stool. Patient had been recently discharged with RSV, atrial flutter, acute kidney injury and retention requiring indwelling Mcgovern catheter placement. Patient had been evaluated by urology along with nephrology during last admission a few days ago and stable recommending outpatient follow- up with urology and continue with indwelling Mcgovern catheter. Hemoglobin had been stable in the low 11/29 and does have a history of anemia. Patient also with a significant past medical history of asthma/COPD, coronary artery disease, CAB G, pacemaker, diabetes mellitus, hypertension, hypothyroid and follows with Dr. Samuel Venegas in the outpatient setting. Patient with significant weakness seen by physical therapy recommending rehab in the first patient wanted to go home although was agreeable to rehab and was sent there with continued indwelling Mcgovern catheter and instructed to have outpatient follow-up with urology. Patient was started on Aranesp and anticoagulation was on hold due to the hematuria. Patient was on a prednisone taper along with DuoNeb treatments oral amiodarone that was on a taper along with Flomax. Patient admitted for general surgery consultation along with urology for hematuria and possible GI bleed. Labs reviewed on admission show a WBC of 12.7 most likely reactive as patient had been on IV steroids and recently transitioned oral prednisone, hemoglobin was 7.4, platelets low and have been low at 108, sodium was 136 with a potassium of 5.1, BUN that has been persistently high was 1:30 with a creatinine of 3.04, hyperglycemia noted and patient had a plasma lactic acid level of 2.2. Occult stool was positive. Chest x-ray revealed post CABG changes with left sided AICD noted and COPD with no acute process noted. EKG with an electronic atrial paced with a prolonged QT interval of 484. 05/25/2022 Patient is seen and evaluated in follow-up this morning lethargic although easily arousable. Patient did have episodes of hypoglycemia most likely due to poor oral intake and recommended to monitor Accu-Cheks before meals and at bedtime and as needed closely. Urology and nephrology following and recommend continue Mcgovern catheter. Iron studies being ordered. Patient's hematuria is n oted to be improving. Recommend aspiration precautions with head of the bed elevated 45 and supervision with meals. Recommended thickened liquids. Patient is currently afebrile denies chest pain or shortness of breath. Patient does have intermittent periods of confusion and is a poor historian. This is his baseline. 05/26/2022 Patient seen and evaluated in follow-up today extremely pale and hemoglobin was found to be 6.4 with hematocrit of 18.6. WBC is normal, platelets are decreased as well at 100. Urology and nephrology following recommending to continue with indwelling Mcgovern catheter with possible trial void tomorrow and hematuria appears resolved as there is clear yellow urine in the Mcgovern catheter. Urine culture finalized showing MRSA in the urine with multiple resistance and will consult infectious disease and appreciate input and recommendations. Patient not eating very well recommend ground diet with aspiration precautions and thickened liquids. Will follow up on repeat labs and also give a dose of Lasix as patient had 2 units of PRBCs today. Review of systems: Constitutional: reports of fatigue, no fever, or chills Cardiovascular: No reports of chest pain or palpitations Respiratory: No reports of worsening shortness of breath or cough GI: No reports of nausea, vomiting, or diarrhea, reports not much of an appetite : No reports of dysuria or retention Neurovascular: reports of generalized weakness All medications have been reviewed Active Medications Albuterol Sulfate (Albuterol Nebulized 2.5 Mg/3 Ml) 2.5 mg INHALATION RT-QID PRN PRN Reason: Shortness Of Breath Albuterol/Ipratropium (Ipratropium-Albuterol 3 Ml Neb) 3 ml INHALATION RT-QID [facility] Last Admin: 05/26/22 15:31 Dose: 3 ml Calcium Carbonate/Glycine (Calcium Carbonate 500 Mg Chewable) 500 mg PO BID [facility] Last Admin: 05/26/22 20:40 Dose: 500 mg Darbepoetin Murali (Darbepoetin Murali 40 Mcg/0.4 Ml Syringe) 40 mcg SQ FR [facility] Last Admin: 05/23/22 22:39 Dose: 40 mcg Famotidine (Famotidine 20 Mg Tab) 20 mg PO DAILY [facility] Last Admin: 05/26/22 08:20 Dose: 20 mg Furosemide (Furosemide 10 Mg/Ml 4 Ml Vial) 20 mg IV ONCE STA Stop: 05/26/22 20:48 Glipizide (Glipizide 2.5 Mg Tab) 2.5 mg PO AC-BID [facility] Last Admin: 05/26/22 17:28 Dose: 2.5 mg Ferric Sodium Gluconate 125 mg (/ Sodium Chloride) 110 mls @ 100 mls/hr IVPB DAILY [facility] Last Admin: 05/26/22 10:03 Dose: 100 mls/hr Daptomycin 350 mg/ Sodium (Chloride) 50 mls @ 100 mls/hr IVPB Q48H [facility]; Protocol Last Admin: 05/26/22 17:00 Dose: 100 mls/hr Insulin Aspart (Insulin Aspart (Novolog) 100 Unit/Ml Vial) 4 unit SQ ACHS [facility] Last Admin: 05/26/22 17:28 Dose: 4 unit Insulin Detemir (Insulin Detemir (Levemir) 100 Unit/Ml Syr) 10 unit SQ BID@0700,1600 [facility] Last Admin: 05/26/22 15:42 Dose: Not Given Levothyroxine Sodium (Levothyroxine 100 Mcg Tab) 100 mcg PO DAILY@0630 [facility] Last Admin: 05/26/22 06:18 Dose: 100 mcg Magnesium Oxide (Magnesium Oxide 400 Mg Tab) 400 mg PO DAILY [facility] Last Admin: 05/26/22 08:20 Dose: 400 mg Metoprolol Succinate (Metoprolol Succinate (Er) 50 Mg Tab.Er.24h) 150 mg PO DAILY [facility] Last Admin: 05/26/22 08:20 Dose: 150 mg Multivitamins/Minerals (Vit A,C & Q-Rpzlhu-Homcvkpl 1 Each Tab) 1 each PO BID [facility] Last Admin: 05/26/22 20:40 Dose: 1 each Naloxone HCl (Naloxone 0.4 Mg/Ml 1 Ml Vial) 0.2 mg IV Q2M PRN PRN Reason: Opioid Reversal Pantoprazole Sodium (Pantoprazole 40 Mg/10 Ml Vial) 40 mg IVP DAILY [facility] Last Admin: 05/26/22 09:32 Dose: 40 mg Quetiapine Fumarate (Quetiapine 25 Mg Tab) 25 mg PO HS [facility] Last Admin: 05/26/22 20:40 Dose: 25 mg Sodium Bicarbonate (Sodium Bicarbonate Tab 650 Mg Tab) 650 mg PO BID [facility] Last Admin: 05/26/22 20:40 Dose: 650 mg Tamsulosin HCl (Tamsulosin 0.4 Mg Cap.Er.24h) 0.4 mg PO DAILY [facility] Last Admin: 05/26/22 08:20 Dose: 0.4 mg PHYSICAL EXAMINATION: GENERAL: The patient is alert and oriented x2-3, poor historian, cachectic, ill-appearing, pale HEENT: Pupils are round and equally reacting to light. EOMI. no scleral icterus. No conjunctival pallor. Normocephalic, atraumatic. No pharyngeal erythema. No thyromegaly. CARDIOVASCULAR: S1 and S2 muffled , Irregular PULMONARY: diminished breath sounds bilaterally with no wheezing, some scattered noted. ABDOMEN: soft. Nontender on exam. non-distended, normoactive bowel sounds. No palpable organomegaly. MUSCULOSKELETAL: No joint swelling or deformity. EXTREMITIES: No cyanosis, clubbing generalized lower edema noted NEUROLOGICAL: Gross neurological examination did not reveal any focal deficits. Diffuse weakness SKIN: No rashes. Pale Assessment: Hematuria most likely secondary to trauma from insertion of indwelling Mcgovern catheter on recent previous admission History of recent admission with hematuria and acute kidney injury Acute on chronic hypoxic respiratory failure secondary to COPD, chronically we ars 2-3 L outpatient Chronic anemia most likely due to chronic kidney disease MRSA in the urine Leukocytosis, most likely reactive from steroids, improved Diabetes mellitus, uncontrolled, insulin-dependent with hyperglycemia Lactic acidosis secondary to dehydration Possible acute GI bleed, although suspicion is low and surgery was consulted and pending Recent hospitalization for RSV Atrial flutter History of AICD placement GI prophylaxis DVT prophylaxis, SCDs, anticoagulation on hold due to hematuria No code Plan: Recommend to continue with current medications and management with general s pamella Cardenas and also urology following. Patient with noted hematuria and had indwelling Mcgovern catheter placed during last admission 3 days ago 2 due to urinary retention and did have some trauma with the catheter placement, hematuria noted to be improving Hemoglobin was found to be 6.4 today and will transfuse 2 units of PRBC and also give a dose of Lasix Urine culture finalized showing MRSA in the urine and will consult infectious disease and appreciate input and recommendations. Patient was also on anticoagulation although due to bleeding was stopped as patient has atrial flutter and does have an AICD pacemaker Continue indwelling Mcgovern catheter and will monitor for worsening hematuria, hemoglobin is currently stable and urology recommended to continue with Mcgovern catheter and irrigate as needed. Urology recommending trial void tomorrow and removal of indwelling Mcgovern catheter. Urine and the Mcgovern bag has significantly improved from hematuria is clear and yellow Recommend monitoring Accu-Cheks before meals and at bedtime and as needed and will continue current medication regimen. Patient with extremely uncontrolled blood sugars recommend to monitor closely as patient is having episodes of hypoglycemia. Patient with fair oral intake although does not eat much and needs encouragement with meals Recommend aspiration precautions with elevated 30-45 possibly thickened liquids as patient is having some episodes of choking on water. Will follow-up with repeat labs status post PRBC 2 Iron studies low with nephrology following and pending at this time. had been started on Aranesp and is receiving IV iron Due to multiple complex medical issues, prognosis is guarded we'll follow-up with repeat labs. Will need to discuss with case management about discharge planning with possible return to [facility] for continued rehab The impression and plan of care has been dictated by Yaquelin Frances, nurse practitioner as directed. Dr. Jaime MD I have performed a history and examination and MDM of this patient, discussed the same with the dictator, and agree with the dictator's assessment and plan as written ,documented as a scribe. Based on total visit time, I have performed more than 50% of the visit. Any additional findings or plans will be noted. Objective - Vital Signs Vital signs: Vital Signs Temp 98.8 F 05/26/22 08:00 Pulse 64 05/26/22 08:29 Resp 15 05/26/22 08:00 BP 100/47 05/26/22 08:00 Pulse Ox 96 05/26/22 08:00 FiO2 2 05/24/22 07:56 Intake & Output 05/25/22 05/26/22 05/26/22 18:59 06:59 18:59 Intake Total 180 Output Total 550 700 Balance -370 -700 Intake: Oral 180 Output: Urine 550 700 Other: Voiding Method Indwelling Catheter Indwelling Catheter # Bowel Movements 1 1 - Labs CBC & Chem 7: 05/26/22 11:51 05/26/22 04:15 Labs: Abnormal Lab Results - Last 24 Hours (Table) 05/25/22 05/25/22 05/25/22 Range/Units 06:34 08:54 09:07 POC Glucose (mg/dL) 41 L 235 H (70-110) mg/dL Iron 12 L (65-175) ug/dL TIBC 162 L (228-460) ug/dL % Saturation 7.33 L (15.00-50.00) Transferrin 116.0 L (204.0-354.0) mg/dL 05/25/22 05/25/22 05/25/22 Range/Units 10:54 11:51 13:49 POC Glucose (mg/dL) 172 H 215 H 161 H (70-110) mg/dL Iron (65-175) ug/dL TIBC (228-460) ug/dL % Saturation (15.00-50.00) Transferrin (204.0-354.0) mg/dL 05/25/22 05/25/22 05/25/22 Range/Units 14:29 16:48 20:43 POC Glucose (mg/dL) 166 H 189 H 201 H (70-110) mg/dL Iron (65-175) ug/dL TIBC (228-460) ug/dL % Saturation (15.00-50.00) Transferrin (204.0-354.0) mg/dL 05/26/22 Range/Units 06:10 POC Glucose (mg/dL) 139 H (70-110) mg/dL Iron (65-175) ug/dL TIBC (228-460) ug/dL % Saturation (15.00-50.00) Transferrin (204.0-354.0) mg/dL Microbiology - Last 24 Hours (Table) 05/23/22 16:51 Urine Culture - Preliminary Urine,Voided Presumptive Staph aureus
[2022-05-26 21:19] LABS: Glucose,Whole Blood 238 mg/dL (70-110)
--- NOTE | 2022-05-26 21:35 | P.CONS ---
History of Present Illness - Reason for Consult Consult date: 05/26/22 MRSA in the urine Requesting physician: Yaquelin Frances - Chief Complaint Blood in the urine x one day - History of Present Illness Patient is a 81-year-old male with a past medical history significant for coronary disease diabetes mellitus hypertension hyperlipidemia also with a previous history of TURP recent urine retention and gross hematuria requiring Mcgovern catheter placement patient apparently seem to have ripped up his Mcgovern catheter in the skilled nursing that has been subsequently replaced on the patient seem to have follow-up with persistent hematuria and there was complete concern for possible blood in the stool for the patient was sent to the ER for further evaluation on 05/23/2022 patient on presentation to the hospital was afebrile he did have a low-grade fever of 99.3 F this afternoon patient did have low hemoglobin his white count was 15.9 on admission that has subsequently normalized did have elevated BUN/creatinine patient did have a positive UA with large leukocyte esterase more than 182 WBC stool for culture was negative patient urine culture finalized with MRSA that has prompted this infectious disease consultation patient did have a chest x-ray no acute cardiopulmonary process patient currently denies having any chest pain or shortness of breath or cough denies having any abdominal pain or suprapubic or flank pain no nausea no vomiting or any diarrhea Review of Systems Positive point has been mentioned in the HPI rest of the systems are negative Past Medical History Past Medical History: Asthma, Coronary Artery Disease (CAD), Cancer, Diabetes Mellitus, Hyperlipidemia, Hypertension, Thyroid Disorder Additional Past Medical History / Comment(s): ,bladder stones,and urinary infection and cellulitis kailyn legs,lymphoma, chemotherapy, radiation,- 06/2011, colitis History of Any Multi-Drug Resistant Organisms: None Reported Past Surgical History: AICD, Coronary Bypass/CABG, Heart Catheterization With Stent, Orthopedic Surgery, Pacemaker Additional Past Surgical History / Comment(s): Lt ankle - plate. sinus surgery s/t cancer. CABG-4 vessels. pacemaker/defib. [facility] upper left chest Past Anesthesia/Blood Transfusion Reactions: No Reported Reaction Additional Past Anesthesia/Blood Transfusion Reaction / Comm: no probles with prior blood transfusion Date of Last Stent Placement:: 2001 Type of Cardiac Device: Permanent Pacemaker, AICD Device Placement Date:: 2001 Past Psychological History: No Psychological Hx Reported Smoking Status: Former smoker Past Alcohol Use History: None Reported Additional Past Alcohol Use History / Comment(s): Patient quit smoking in 1967. Past Drug Use History: None Reported - Past Family History Brother(s) Family Medical History: Myocardial Infarction ([place]) Additional Family Medical History / Comment(s): Patient has 3 brothers and one has history of coronary artery disease. Sister(s) Additional Family Medical History / Comment(s): Patient has one sister with history of SVT and AVR. Son(s) Additional Family Medical History / Comment(s): Patient has 2 sons and one has history of kidney stones. Patient does not have any daughters. Patient has a grandson treated for SVT. Father Family Medical History: No Reported History Additional Family Medical History / Comment(s): Father at age 72 with history of coronary artery disease and CABG Mother Family Medical History: No Reported History Additional Family Medical History / Comment(s): Mother at age 93 with history of coronary artery disease. Medications and Allergies Home Medications Medication Instructions Recorded Confirmed Type Levothyroxine Sodium [Synthroid] 100 mcg PO DAILY 08/04/14 05/23/22 History Albuterol Nebulized [Ventolin 2.5 mg INHALATION RT-QID 11/05/16 05/23/22 History Nebulized] Vit C/E/Zn/Coppr/Lutein/Zeaxan 1 cap PO BID 04/22/18 05/23/22 History [Preservision Areds 2 Softgel] Albuterol Inhaler [Ventolin Hfa 2 puff INHALATION RT-QID PRN 07/03/20 05/23/22 History Inhaler] Magnesium Oxide [Mag-Ox] 400 mg PO DAILY #30 tablet 07/05/20 05/23/22 Rx Famotidine [Pepcid] 20 mg PO DAILY 09/19/20 05/23/22 History Acetaminophen Tab [Tylenol] 650 mg PO Q6HR PRN tab 07/30/21 05/23/22 Rx Ipratropium-Albuterol Nebulize 3 ml INHALATION RT-QID each 05/21/22 05/23/22 Rx [Duoneb 0.5 mg-3 mg/3 ml Soln] Metoprolol Succinate (ER) [Toprol 150 mg PO DAILY tab 05/21/22 05/23/22 Rx XL] QUEtiapine [SEROquel] 25 mg PO HS tab 05/21/22 05/23/22 Rx Sodium Bicarbonate Tab 650 mg PO BID tab 05/21/22 05/23/22 Rx Darbepoetin Murali [Aranesp] 40 mcg SQ FR 05/23/22 05/23/22 History Eucerin Cream 1 applic TOPICAL BID 05/23/22 05/23/22 History Glucagon [Gvoke Pfs 1-Pack Syringe] 1 mg SQ Q15M PRN 05/23/22 05/23/22 History Insulin Aspart [NovoLOG Flexpen] See Protocol SQ ACHS 05/23/22 05/23/22 History Tamsulosin [Flomax] 0.4 mg PO DAILY 05/23/22 05/23/22 History predniSONE See Taper PO DIRECTED 05/23/22 05/23/22 History Amiodarone [Cordarone] 200 mg PO DAILY #30 tab 05/29/22 Rx Calcium Carbonate [Tums] 500 mg PO BID tab 05/29/22 Rx DAPTOmycin 350 mg IV Q48H #14 each 05/29/22 Rx Insulin Detemir (Levemir) [Levemir] 10 unit SQ BID@0700,1600 each 05/29/22 Rx glipiZIDE [Glucotrol] 2.5 mg PO DAILY tab 05/29/22 Rx Allergies Allergy/AdvReac Type Severity Reaction Status Date / Time esmolol [From Brevibloc] AdvReac "felt like Verified 05/23/22 15:41 I was going to pass out" Physical Exam Vitals: Vital Signs Temp Pulse Pulse Resp BP BP Pulse Ox 05/26/22 21:29 60 05/26/22 19:34 99.3 F 62 18 122/50 91 L 05/26/22 16:29 99.4 F 64 14 127/67 94 L 05/26/22 15:44 64 05/26/22 15:31 64 05/26/22 13:59 99.3 F 66 14 106/50 91 L 05/26/22 13:39 72 14 113/45 93 L 05/26/22 13:30 98.7 F 65 18 107/54 93 L 05/26/22 12:09 68 05/26/22 11:56 68 05/26/22 08:29 64 05/26/22 08:20 64 05/26/22 08:00 98.8 F 70 15 100/47 96 05/26/22 02:00 97.8 F 67 16 132/60 97 Intake and Output 05/26/22 05/26/22 05/26/22 06:59 14:59 22:59 Intake Total 0 770 Output Total 700 Balance -700 0 770 Intake: Intake, IV Titration 150 Amount DAPTOmycin 350 mg In 50 Sodium Chloride 0.9% 50 ml @ 100 mls/hr IVPB Q48H [facility] Rx#:[id number] Sodium Ferric Gluconat- 100 Sucrose 125 mg In Sodium Chloride 0.9% 100 ml @ 100 mls/hr IVPB DAILY [facility] Rx#:[id number] Blood Product 0 620 Rc As-1 Unit 0 310 [id number] Output: Urine 700 Other: Voiding Method Indwelling Catheter # Bowel Movements 1 GENERAL DESCRIPTION: Elderly male lying in bed, no distress. No tachypnea or accessory muscle of respiration use. HEENT: Shows Pallor , no scleral icterus. Oral mucous membrane is dry. No pharyngeal erythema or thrush NECK: Trachea central, no thyromegaly. LUNGS: Unlabored breathing. Decreased breath sounds at the base. HEART: S1, S2, regular rate and rhythm. No loud murmur ABDOMEN: Soft, no tenderness , guarding or rigidity, no organomegaly EXTREMITIES: No edema of feet. SKIN: No rash, no masses palpable. NEUROLOGICAL: The patient is awake, alert, oriented x3, mood and affect normal. Results CBC & Chem 7: 05/28/22 04:50 05/28/22 04:50 Labs: Abnormal Lab Results - Last 24 Hours (Table) 05/23/22 05/26/22 05/26/22 Range/Units 15:30 04:15 04:15 RBC 2.13 L (4.40-5.60) X 10*6/uL Hgb 6.4 L* (13.0-17.0) g/dL Hct 21.0 L (39.6-50.0) % MCV 98.6 H (80.0-97.0) fL MCHC 30.5 L (32.0-37.0) g/dL Plt Count 110 L (140-440) X 10*3/uL Plt Count Comment DECREASED A Immature Gran # 0.06 H (0.00-0.04) X 10*3/uL Neutrophils # 7.89 H (1.80-7.70) X 10*3/uL Chloride 113 H (96-109) mmol/L Anion Gap 7.40 L (10.00-18.00) mmol/L BUN 74.1 H (9.0-27.0) mg/dL Creatinine 2.5 H (0.6-1.5) mg/dL Est GFR (CKD-EPI)AfAm 27.1 L (60.0-200.0) Est GFR (CKD-EPI)NonAf 23.4 L (60.0-200.0) BUN/Creatinine Ratio 29.64 H (12.00-20.00) Ratio POC Glucose (mg/dL) (70-110) mg/dL Calcium 7.3 L (8.7-10.3) mg/dL Urine Protein (Negative) Urine Glucose (UA) (Negative) Urine Blood (Negative) Ur Leukocyte Esterase (Negative) Urine RBC (0-5) /hpf Urine WBC (0-5) /hpf Urine WBC Clumps (None) /hpf Urine Bacteria (None) /hpf Urine Mucus (None) /hpf Crossmatch See Detail 05/26/22 05/26/22 05/26/22 Range/Units 06:10 11:15 11:51 RBC 1.96 L (4.40-5.60) X 10*6/uL Hgb 6.2 L* (13.0-17.0) g/dL Hct 18.6 L* (39.6-50.0) % MCV (80.0-97.0) fL MCHC (32.0-37.0) g/dL Plt Count 100 L (140-440) X 10*3/uL Plt Count Comment Immature Gran # (0.00-0.04) X 10*3/uL Neutrophils # (1.80-7.70) X 10*3/uL Chloride (96-109) mmol/L Anion Gap (10.00-18.00) mmol/L BUN (9.0-27.0) mg/dL Creatinine (0.6-1.5) mg/dL Est GFR (CKD-EPI)AfAm (60.0-200.0) Est GFR (CKD-EPI)NonAf (60.0-200.0) BUN/Creatinine Ratio (12.00-20.00) Ratio POC Glucose (mg/dL) 139 H 267 H (70-110) mg/dL Calcium (8.7-10.3) mg/dL Urine Protein (Negative) Urine Glucose (UA) (Negative) Urine Blood (Negative) Ur Leukocyte Esterase (Negative) Urine RBC (0-5) /hpf Urine WBC (0-5) /hpf Urine WBC Clumps (None) /hpf Urine Bacteria (None) /hpf Urine Mucus (None) /hpf Crossmatch 05/26/22 05/26/22 05/26/22 Range/Units 15:21 16:30 21:15 RBC (4.40-5.60) X 10*6/uL Hgb (13.0-17.0) g/dL Hct (39.6-50.0) % MCV (80.0-97.0) fL MCHC (32.0-37.0) g/dL Plt Count (140-440) X 10*3/uL Plt Count Comment Immature Gran # (0.00-0.04) X 10*3/uL Neutrophils # (1.80-7.70) X 10*3/uL Chloride (96-109) mmol/L Anion Gap (10.00-18.00) mmol/L BUN (9.0-27.0) mg/dL Creatinine (0.6-1.5) mg/dL Est GFR (CKD-EPI)AfAm (60.0-200.0) Est GFR (CKD-EPI)NonAf (60.0-200.0) BUN/Creatinine Ratio (12.00-20.00) Ratio POC Glucose (mg/dL) 255 H 238 H (70-110) mg/dL Calcium (8.7-10.3) mg/dL Urine Protein 2+ H (Negative) Urine Glucose (UA) Trace H (Negative) Urine Blood Large H (Negative) Ur Leukocyte Esterase Large H (Negative) Urine RBC >182 H (0-5) /hpf Urine WBC >182 H (0-5) /hpf Urine WBC Clumps Many H (None) /hpf Urine Bacteria Many H (None) /hpf Urine Mucus Rare H (None) /hpf Crossmatch Microbiology - Last 24 Hours (Table) 05/23/22 16:51 Urine Culture - Final Urine,Voided Methicillin resist S. aureus Assessment and Plan (1) Urinary tract infection Current Visit: Yes Status: Acute Code(s): N39.0 - URINARY TRACT INFECTION, SITE NOT SPECIFIED SNOMED Code(s): 30663170 Plan: 1patient with a positive urine culture with MRSA in this patient who do have a history of TURP urine retention requiring Mcgovern catheter placement and recent hematuria concerning for possible catheter associated UTI. 2we will obtain blood culture to make sure the patient not bacteremic. 3check ultrasound of the kidney bladder area 4patient with renal insufficiency and high risk of nephrotoxicity from vancomycin hence we will use daptomycin 4 mg/kg We will follow on clinical condition and cultures to further adjust medication if needed Thank you for this consultation we will follow the patient along with you Time with Patient: Greater than 30
[2022-05-27 01:56] LABS: Glucose,Whole Blood 122 mg/dL (70-110)
[2022-05-27 06:21] LABS: Glucose,Whole Blood 147 mg/dL (70-110)
[2022-05-27] MEDS: LEVOTHYROXINE 100 MCG TAB PO SCH (06:36)
[2022-05-27] MEDS: INSULIN DETEMIR (LEVEMIR) 100 UNIT/ML SYR SQ SCH ×2 (07:25→16:02)
[2022-05-27] MEDS: INSULIN ASPART (NovoLOG) 100 UNIT/ML VIAL SQ SCH ×4 (07:25→22:25)
[2022-05-27] MEDS: IPRATROPIUM-ALBUTEROL 3 ML NEB INHALATION SCH ×4 (08:24→21:05)
[2022-05-27 08:47] LABS: African American GFR (CKD) 25.8 (60.0-200.0); Anion Gap 6.4 mmol/L (10.00-18.00); BUN/Creat Ratio 23.88 Ratio (12.00-20.00); Blood Urea Nitrogen 62.1 mg/dL (9.0-27.0); Calcium 7.2 mg/dL (8.7-10.3); Carbon Dioxide 22.6 mmol/L (20.0-27.5); Non-African American GFR(CKD) 22.3 (60.0-200.0); Potassium 4.4 mmol/L (3.5-5.5)
[2022-05-27] MEDS: SODIUM BICARBONATE TAB 650 MG TAB PO SCH ×2 (09:31→22:25)
[2022-05-27] MEDS: METOPROLOL SUCCINATE (ER) 50 MG TAB.ER.24H PO SCH (09:31)
[2022-05-27] MEDS: VIT A,C & E-LUTEIN-MINERALS 1 EACH TAB PO SCH ×2 (09:31→22:25)
[2022-05-27] MEDS: FAMOTIDINE 20 MG TAB PO SCH (09:31)
[2022-05-27] MEDS: CALCIUM CARBONATE 500 MG CHEWABLE PO SCH ×2 (09:31→22:25)
[2022-05-27] MEDS: MAGNESIUM OXIDE 400 MG TAB PO SCH (09:31)
[2022-05-27] MEDS: SODIUM FERRIC GLUCONAT-SUCROSE 125 MG in SODIUM CHLORIDE 0.9% 100 ML IVPB SCH (09:31)
[2022-05-27] MEDS: TAMSULOSIN 0.4 MG CAP.ER.24H PO SCH (09:31)
[2022-05-27] MEDS: PANTOPRAZOLE 40 MG/10 ML VIAL IVP SCH (09:50)
[2022-05-27 10:20] LABS: Basophils # (A) 0 X 10*3/uL (0.00-0.10); Basophils % (A) 0 %; Eosinophils # (A) 0.12 X 10*3/uL (0.04-0.35); Eosinophils % (A) 1.6 %; HCT 22.1 % (39.6-50.0); Immature Grans, Automated 0.4 %; Lymphocytes # (A) 1.28 X 10*3/uL (0.90-5.00); MCH 30.3 pg (27.0-32.0); MCHC 31.7 g/dL (32.0-37.0); MCV 95.7 fL (80.0-97.0); Mean Platelet Volume 11.1 fL (9.5-12.2); Monocytes # (A) 0.34 X 10*3/uL (0.20-1.00); Monocytes % (A) 4.5 %; NRBC Per 100 WBC 0 /100 WBCS (0.0-0.0); Neutrophils # (A) 5.75 X 10*3/uL (1.80-7.70); Neutrophils % (A) 76.5 %; Platelet Count 92 X 10*3/uL (140-440); RBC 2.31 X 10*6/uL (4.40-5.60); RDW 14.3 % (11.5-14.5); WBC 7.52 X 10*3/uL (4.50-10.00)
--- NOTE | 2022-05-27 10:25 | P.PN ---
Subjective Patient is seen for follow-up for acute kidney injury and chronic kidney disease. He was admitted to the hospital with hematuria. Patient has an i ndwelling Mcgovern catheter for obstructive uropathy. Hematuria has resolved. Urine in the Mcgovern bag appears to be yellow and clear. Serum creatinine down to 2.6 mg/dL today. Overall patient is feeling better. Urine culture is growing MRSA and patient has been started on daptomycin. Objective - Vital Signs Vital signs: Vital Signs Temp 98.5 F 05/27/22 07:53 Pulse 68 05/27/22 08:36 Resp 15 05/27/22 07:53 BP 106/53 05/27/22 07:53 Pulse Ox 95 05/27/22 07:53 FiO2 2 05/24/22 07:56 Intake & Output 05/26/22 05/27/22 05/27/22 18:59 06:59 18:59 Intake Total 770 Output Total 2400 Balance 770 -2400 Intake: Intake, IV Titration 150 Amount DAPTOmycin 350 mg In 50 Sodium Chloride 0.9% 50 ml @ 100 mls/hr IVPB Q48H [facility] Rx#:[id number] Sodium Ferric Gluconat- 100 Sucrose 125 mg In Sodium Chloride 0.9% 100 ml @ 100 mls/hr IVPB DAILY [facility] Rx#:[id number] Blood Product 620 Rc As-1 Unit 310 [id number] Output: Urine 2400 Other: Voiding Method Indwelling Catheter Indwelling Catheter # Bowel Movements 4 - Exam Awake, comfortable, no acute distress Examination of the heart S1 and S2 Examination lungs bilateral breath sounds are heard Abdomen is soft nontender Examination lower extremity shows chronic skin changes no significant edema noted bilaterally [employer] exam 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 - Labs CBC & Chem 7: 05/27/22 04:05 05/27/22 04:05 Labs: Abnormal Lab Results - Last 24 Hours (Table) 05/23/22 05/26/22 05/26/22 Range/Units 15:30 11:15 11:51 RBC 1.96 L (4.30-5.90) m/uL Hgb 6.2 L* (13.0-17.5) gm/dL Hct 18.6 L* (39.0-53.0) % MCHC (32.0-37.0) g/dL Plt Count 100 L (150-450) k/uL Chloride (96-109) mmol/L Anion Gap (10.00-18.00) mmol/L BUN (9.0-27.0) mg/dL Creatinine (0.6-1.5) mg/dL Est GFR (CKD-EPI)AfAm (60.0-200.0) Est GFR (CKD-EPI)NonAf (60.0-200.0) BUN/Creatinine Ratio (12.00-20.00) Ratio POC Glucose (mg/dL) 267 H (70-110) mg/dL Calcium (8.7-10.3) mg/dL Urine Protein (Negative) Urine Glucose (UA) (Negative) Urine Blood (Negative) Ur Leukocyte Esterase (Negative) Urine RBC (0-5) /hpf Urine WBC (0-5) /hpf Urine WBC Clumps (None) /hpf Urine Bacteria (None) /hpf Urine Mucus (None) /hpf Crossmatch See Detail 05/26/22 05/26/22 05/26/22 Range/Units 15:21 16:30 21:15 RBC (4.30-5.90) m/uL Hgb (13.0-17.5) gm/dL Hct (39.0-53.0) % MCHC (32.0-37.0) g/dL Plt Count (150-450) k/uL Chloride (96-109) mmol/L Anion Gap (10.00-18.00) mmol/L BUN (9.0-27.0) mg/dL Creatinine (0.6-1.5) mg/dL Est GFR (CKD-EPI)AfAm (60.0-200.0) Est GFR (CKD-EPI)NonAf (60.0-200.0) BUN/Creatinine Ratio (12.00-20.00) Ratio POC Glucose (mg/dL) 255 H 238 H (70-110) mg/dL Calcium (8.7-10.3) mg/dL Urine Protein 2+ H (Negative) Urine Glucose (UA) Trace H (Negative) Urine Blood Large H (Negative) Ur Leukocyte Esterase Large H (Negative) Urine RBC >182 H (0-5) /hpf Urine WBC >182 H (0-5) /hpf Urine WBC Clumps Many H (None) /hpf Urine Bacteria Many H (None) /hpf Urine Mucus Rare H (None) /hpf Crossmatch 05/27/22 05/27/22 05/27/22 Range/Units 01:54 04:05 04:05 RBC 2.31 L (4.30-5.90) m/uL Hgb 7.0 L (13.0-17.5) gm/dL Hct 22.1 L (39.0-53.0) % MCHC 31.7 L (32.0-37.0) g/dL Plt Count 92 L (150-450) k/uL Chloride 112 H (96-109) mmol/L Anion Gap 6.40 L (10.00-18.00) mmol/L BUN 62.1 H (9.0-27.0) mg/dL Creatinine 2.6 H (0.6-1.5) mg/dL Est GFR (CKD-EPI)AfAm 25.8 L (60.0-200.0) Est GFR (CKD-EPI)NonAf 22.3 L (60.0-200.0) BUN/Creatinine Ratio 23.88 H (12.00-20.00) Ratio POC Glucose (mg/dL) 122 H (70-110) mg/dL Calcium 7.2 L (8.7-10.3) mg/dL Urine Protein (Negative) Urine Glucose (UA) (Negative) Urine Blood (Negative) Ur Leukocyte Esterase (Negative) Urine RBC (0-5) /hpf Urine WBC (0-5) /hpf Urine WBC Clumps (None) /hpf Urine Bacteria (None) /hpf Urine Mucus (None) /hpf Crossmatch 05/27/22 Range/Units 06:19 RBC (4.30-5.90) m/uL Hgb (13.0-17.5) gm/dL Hct (39.0-53.0) % MCHC (32.0-37.0) g/dL Plt Count (150-450) k/uL Chloride (96-109) mmol/L Anion Gap (10.00-18.00) mmol/L BUN (9.0-27.0) mg/dL Creatinine (0.6-1.5) mg/dL Est GFR (CKD-EPI)AfAm (60.0-200.0) Est GFR (CKD-EPI)NonAf (60.0-200.0) BUN/Creatinine Ratio (12.00-20.00) Ratio POC Glucose (mg/dL) 147 H (70-110) mg/dL Calcium (8.7-10.3) mg/dL Urine Protein (Negative) Urine Glucose (UA) (Negative) Urine Blood (Negative) Ur Leukocyte Esterase (Negative) Urine RBC (0-5) /hpf Urine WBC (0-5) /hpf Urine WBC Clumps (None) /hpf Urine Bacteria (None) /hpf Urine Mucus (None) /hpf Crossmatch Microbiology - Last 24 Hours (Table) 05/26/22 15:21 Urine Culture - Preliminary Urine,Voided 05/23/22 16:51 Urine Culture - Final Urine,Voided Methicillin resist S. aureus Assessment and Plan Assessment: 1. Acute kidney injury, ATN and obstructive uropathy from last admission currently improving. Serum creatinine had peaked at about 3.2 mg/dL during his last admission. Ultrasound showed bilateral moderate hydronephrosis. Mcgovern catheter was placed last admission. Creatinine down to 2.5 today 2. 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 Hematuria, mostly traumatic 4. Anemia associated with significant hematuria, status post packed RBCs transfusion. 5. History of GI bleed with stool for occult blood positive this admission 6. Anemia of chronic disease maintained on Aranesp. Iron deficiency noted maintained on IV iron 7. MRSA UTI maintained on daptomycin Plan: . Continue with Mcgovern catheter IV antibiotics as per ID IV iron
[2022-05-27 11:06] LABS: Glucose,Whole Blood 305 mg/dL (70-110)
[2022-05-27 13:14] LABS: Appearance,Urine Cloudy (Clear); Bacteria,Urine Rare /hpf; Bilirubin,Urine Negative (Negative); Blood,Urine Moderate (Negative); Budding Yeast,Urine Occasional /hpf; Color,Urine Light Yellow; Glucose,Urine (UA) Trace (Negative); Ketones,Urine Negative (Negative); Leukocyte Esterase,Urine Large (Negative); Nitrite,Urine Positive (Negative); PH, Urine 5.5 (5.0-8.0); Protein,Urine 1+ (Negative); RBC,Urine 53 /hpf (0-5); Specific Gravity,Urine 1.014 (1.001-1.035); Squamous Epithelial Cell,Urine <1 /hpf (0-4); Urobilinogen,Urine <2.0 mg/dL (<2.0); WBC,Urine >182 /hpf (0-5)
[2022-05-27 15:42] LABS: Glucose,Whole Blood 228 mg/dL (70-110)
[2022-05-27 16:32] LABS: Glucose,Whole Blood 273 mg/dL (70-110)
[2022-05-27 21:10] LABS: Glucose,Whole Blood 196 mg/dL (70-110)
[2022-05-27] MEDS: QUEtiapine 25 MG TAB PO SCH (22:24)
[2022-05-28 01:42] LABS: Glucose,Whole Blood 143 mg/dL (70-110)
--- NOTE | 2022-05-28 03:08 | P.PN ---
Subjective Progress Note Date: 05/27/22 This is a 81-year-old male who presented to the emergency department from [facility] With concerns of bleeding noted and the Mcgovern with hematuria and also possible blood in the stool. Patient had been recently discharged with RSV, atrial flutter, acute kidney injury and retention requiring indwelling Mcgovern catheter placement. Patient had been evaluated by urology along with nephrology during last admission a few days ago and stable recommending outpatient follow- up with urology and continue with indwelling Mcgovern catheter. Hemoglobin had been stable in the low 11/29 and does have a history of anemia. Patient also with a significant past medical history of asthma/COPD, coronary artery disease, CAB G, pacemaker, diabetes mellitus, hypertension, hypothyroid and follows with Dr. Samuel Venegas in the outpatient setting. Patient with significant weakness seen by physical therapy recommending rehab in the first patient wanted to go home although was agreeable to rehab and was sent there with continued indwelling Mcgovern catheter and instructed to have outpatient follow-up with urology. Patient was started on Aranesp and anticoagulation was on hold due to the hematuria. Patient was on a prednisone taper along with DuoNeb treatments oral amiodarone that was on a taper along with Flomax. Patient admitted for general surgery consultation along with urology for hematuria and possible GI bleed. Labs reviewed on admission show a WBC of 12.7 most likely reactive as patient had been on IV steroids and recently transitioned oral prednisone, hemoglobin was 7.4, platelets low and have been low at 108, sodium was 136 with a potassium of 5.1, BUN that has been persistently high was 1:30 with a creatinine of 3.04, hyperglycemia noted and patient had a plasma lactic acid level of 2.2. Occult stool was positive. Chest x-ray revealed post CABG changes with left sided AICD noted and COPD with no acute process noted. EKG with an electronic atrial paced with a prolonged QT interval of 484. 05/25/2022 Patient is seen and evaluated in follow-up this morning lethargic although easily arousable. Patient did have episodes of hypoglycemia most likely due to poor oral intake and recommended to monitor Accu-Cheks before meals and at bedtime and as needed closely. Urology and nephrology following and recommend continue Mcgovern catheter. Iron studies being ordered. Patient's hematuria is n oted to be improving. Recommend aspiration precautions with head of the bed elevated 45 and supervision with meals. Recommended thickened liquids. Patient is currently afebrile denies chest pain or shortness of breath. Patient does have intermittent periods of confusion and is a poor historian. This is his baseline. 05/26/2022 Patient seen and evaluated in follow-up today extremely pale and hemoglobin was found to be 6.4 with hematocrit of 18.6. WBC is normal, platelets are decreased as well at 100. Urology and nephrology following recommending to continue with indwelling Mcgovern catheter with possible trial void tomorrow and hematuria appears resolved as there is clear yellow urine in the Mcgovern catheter. Urine culture finalized showing MRSA in the urine with multiple resistance and will consult infectious disease and appreciate input and recommendations. Patient not eating very well recommend ground diet with aspiration precautions and thickened liquids. Will follow up on repeat labs and also give a dose of Lasix as patient had 2 units of PRBCs today. 05/27/2022 Patient seen today being followed by nephrology, urology, infectious disease. Patient is continued on IV antibiotics if urine culture was showing MRSA and awaiting repeat urine culture. Per urology patient had Mcgovern catheter removed and trial void patient is waiting recommend external catheter for now to monitor intake and output. Patient is having bowel movements and no bleeding noted. Hemoglobin was found to be 7.0 and will give a unit of PRBCs recommend follow-up labs. Nephrology was recommending to continue indwelling Mcgovern catheter and will discuss with consultations hypoxic and plan moving forward. Plan is to return to ECF once stabilized discharge. Patient is afebrile denies shortness of breath or chest pain. Patient is tolerating soft diet and recommend aspiration precautions. Patient needs encouragement with oral intake. Blood sugars continue to be uncontrolled and will adjust insulins. Recommend PT/OT evaluation for continued significant weakness. Review of systems: Constitutional: reports of fatigue, no fever, or chills Cardiovascular: No reports of chest pain or palpitations Respiratory: No reports of worsening shortness of breath or cough GI: No reports of nausea, vomiting, or diarrhea, reports not much of an appetite : No reports of dysuria or retention, reports urinating post Mcgovern catheter removal Neurovascular: reports of generalized weakness All medications have been reviewed Active Medications Albuterol Sulfate (Albuterol Nebulized 2.5 Mg/3 Ml) 2.5 mg INHALATION RT-QID PRN PRN Reason: Shortness Of Breath Albuterol/Ipratropium (Ipratropium-Albuterol 3 Ml Neb) 3 ml INHALATION RT-QID [facility] Last Admin: 05/27/22 21:05 Dose: 3 ml Calcium Carbonate/Glycine (Calcium Carbonate 500 Mg Chewable) 500 mg PO BID [facility] Last Admin: 05/27/22 22:25 Dose: 500 mg Darbepoetin Murali (Darbepoetin Murali 40 Mcg/0.4 Ml Syringe) 40 mcg SQ FR [facility] Last Admin: 05/23/22 22:39 Dose: 40 mcg Famotidine (Famotidine 20 Mg Tab) 20 mg PO DAILY [facility] Last Admin: 05/27/22 09:31 Dose: 20 mg Glipizide (Glipizide 2.5 Mg Tab) 2.5 mg PO AC-BID [facility] Last Admin: 05/27/22 16:53 Dose: 2.5 mg Ferric Sodium Gluconate 125 mg (/ Sodium Chloride) 110 mls @ 100 mls/hr IVPB DAILY [facility] Last Admin: 05/27/22 09:31 Dose: 100 mls/hr Daptomycin 350 mg/ Sodium (Chloride) 50 mls @ 100 mls/hr IVPB Q48H [facility]; Protocol Last Admin: 05/26/22 17:00 Dose: 100 mls/hr Insulin Aspart (Insulin Aspart (Novolog) 100 Unit/Ml Vial) 4 unit SQ ACHS [facility] Last Admin: 05/27/22 22:25 Dose: Not Given Insulin Detemir (Insulin Detemir (Levemir) 100 Unit/Ml Syr) 10 unit SQ BID@0700,1600 [facility] Last Admin: 05/27/22 16:02 Dose: Not Given Levothyroxine Sodium (Levothyroxine 100 Mcg Tab) 100 mcg PO DAILY@0630 [facility] Last Admin: 05/27/22 06:36 Dose: 100 mcg Magnesium Oxide (Magnesium Oxide 400 Mg Tab) 400 mg PO DAILY [facility] Last Admin: 05/27/22 09:31 Dose: 400 mg Metoprolol Succinate (Metoprolol Succinate (Er) 50 Mg Tab.Er.24h) 150 mg PO DAILY [facility] Last Admin: 05/27/22 09:31 Dose: 150 mg Multivitamins/Minerals (Vit A,C & K-Ggnydz-Mcmctwhf 1 Each Tab) 1 each PO BID [facility] Last Admin: 05/27/22 22:25 Dose: 1 each Naloxone HCl (Naloxone 0.4 Mg/Ml 1 Ml Vial) 0.2 mg IV Q2M PRN PRN Reason: Opioid Reversal Pantoprazole Sodium (Pantoprazole 40 Mg/10 Ml Vial) 40 mg IVP DAILY [facility] Last Admin: 05/27/22 09:50 Dose: 40 mg Quetiapine Fumarate (Quetiapine 25 Mg Tab) 25 mg PO HS [facility] Last Admin: 05/27/22 22:24 Dose: 25 mg Sodium Bicarbonate (Sodium Bicarbonate Tab 650 Mg Tab) 650 mg PO BID [facility] Last Admin: 05/27/22 22:25 Dose: 650 mg Tamsulosin HCl (Tamsulosin 0.4 Mg Cap.Er.24h) 0.4 mg PO DAILY [facility] Last Admin: 05/27/22 09:31 Dose: 0.4 mg PHYSICAL EXAMINATION: GENERAL: The patient is alert and oriented x2-3, poor historian, cachectic, ill-appearing, pale HEENT: Pupils are round and equally reacting to light. EOMI. no scleral icterus. No conjunctival pallor. Normocephalic, atraumatic. No pharyngeal erythema. No thyromegaly. CARDIOVASCULAR: S1 and S2 muffled , Irregular PULMONARY: diminished breath sounds bilaterally with no wheezing, some scattered noted. ABDOMEN: soft. Nontender on exam. non-distended, normoactive bowel sounds. No palpable organomegaly. MUSCULOSKELETAL: No joint swelling or deformity. EXTREMITIES: No cyanosis, clubbing generalized lower edema noted NEUROLOGICAL: Gross neurological examination did not reveal any focal deficits. Diffuse weakness SKIN: No rashes. Pale Assessment: Hematuria most likely secondary to trauma from insertion of indwelling Mcgovern catheter on recent previous admission History of recent admission with hematuria and acute kidney injury Acute on chronic hypoxic respiratory failure secondary to COPD, chronically wears 2-3 L outpatient Chronic anemia most likely due to chronic kidney disease MRSA in the urine Leukocytosis, most likely reactive from steroids, improved Diabetes mellitus, uncontrolled, insulin-dependent with hyperglycemia Lactic acidosis secondary to dehydration Possible acute GI bleed, although suspicion is low Recent hospitalization for RSV Atrial flutter History of AICD placement GI prophylaxis DVT prophylaxis, SCDs, anticoagulation on hold due to hematuria No code Plan: Recommend to continue with current medications and management with general surgery Dr. Cardenas and also urology following. Infectious disease and nephrology following as well Patient Mcgovern catheter removed per urology recommendations and trial point and continue Flomax. Patient is voiding and obtained repeat specimen sent Infectious disease is following and patient is maintained on daptomycin his urine culture showing MRSA with repeat urinalysis pending at this time Hemoglobin was found to be 7.0 today post 2 units of blood and will order 1 unit of PRBC for symptomatic anemia, recommend repeat labs in a.m. Recommend monitoring Accu-Cheks before meals and at bedtime and as needed and will continue current medication regimen. Patient with extremely uncontrolled blood sugars recommend to monitor closely as patient is having episodes of hypog lycemia. Encouraged oral intake and will continue with ground chopped diet and aspiration precautions Will follow-up with repeat labs Will discuss with infectious disease along with nephrology and urology treatment plan moving forward Recommend PT/OT therapy evaluation Due to multiple complex medical issues, prognosis is guarded we'll follow-up with repeat labs. Will need to discuss with case management about discharge planning with possible return to ECF for continued rehab The impression and plan of care has been dictated by Yaquelin Frances, nurse practitioner as directed. Dr. Jaime MD I have performed a history and examination and MDM of this patient, discussed the same with the dictator, and agree with the dictator's assessment and plan as written ,documented as a scribe. Based on total visit time, I have performed more than 50% of the visit. Any additional findings or plans will be noted. Objective - Vital Signs Vital signs: Vital Signs Temp 98.5 F 05/28/22 00:39 Pulse 60 05/28/22 00:39 Resp 17 05/28/22 00:39 BP 124/51 05/28/22 00:39 Pulse Ox 95 05/28/22 00:39 FiO2 2 05/24/22 07:56 Intake & Output 05/27/22 05/27/22 05/28/22 06:59 18:59 06:59 Intake Total 310 Output Total 2400 Balance -2400 310 Intake: Blood Product 310 Rc As-1 Unit 310 [id number] Output: Urine 2400 Other: Voiding Method Indwelling Catheter External Catheter # Voids 1 # Bowel Movements 4 1 - Labs CBC & Chem 7: 05/27/22 04:05 05/27/22 04:05 Labs: Abnormal Lab Results - Last 24 Hours (Table) 05/27/22 05/27/22 05/27/22 Range/Units 04:05 04:05 06:19 RBC 2.31 L (4.40-5.60) X 10*6/uL Hgb 7.0 L (13.0-17.0) g/dL Hct 22.1 L (39.6-50.0) % MCHC 31.7 L (32.0-37.0) g/dL Plt Count 92 L (140-440) X 10*3/uL Chloride 112 H (96-109) mmol/L Anion Gap 6.40 L (10.00-18.00) mmol/L BUN 62.1 H (9.0-27.0) mg/dL Creatinine 2.6 H (0.6-1.5) mg/dL Est GFR (CKD-EPI)AfAm 25.8 L (60.0-200.0) Est GFR (CKD-EPI)NonAf 22.3 L (60.0-200.0) BUN/Creatinine Ratio 23.88 H (12.00-20.00) Ratio POC Glucose (mg/dL) 147 H (70-110) mg/dL Calcium 7.2 L (8.7-10.3) mg/dL Urine Protein (Negative) Urine Glucose (UA) (Negative) Urine Blood (Negative) Ur Leukocyte Esterase (Negative) Urine RBC (0-5) /hpf Urine WBC (0-5) /hpf Urine WBC Clumps (None) /hpf Urine Bacteria (None) /hpf Urine Yeast (Budding) (None) /hpf Crossmatch 05/27/22 05/27/22 05/27/22 Range/Units 11:04 11:29 12:50 RBC (4.40-5.60) X 10*6/uL Hgb (13.0-17.0) g/dL Hct (39.6-50.0) % MCHC (32.0-37.0) g/dL Plt Count (140-440) X 10*3/uL Chloride (96-109) mmol/L Anion Gap (10.00-18.00) mmol/L BUN (9.0-27.0) mg/dL Creatinine (0.6-1.5) mg/dL Est GFR (CKD-EPI)AfAm (60.0-200.0) Est GFR (CKD-EPI)NonAf (60.0-200.0) BUN/Creatinine Ratio (12.00-20.00) Ratio POC Glucose (mg/dL) 305 H (70-110) mg/dL Calcium (8.7-10.3) mg/dL Urine Protein 1+ H (Negative) Urine Glucose (UA) Trace H (Negative) Urine Blood Moderate H (Negative) Ur Leukocyte Esterase Large H (Negative) Urine RBC 53 H (0-5) /hpf Urine WBC >182 H (0-5) /hpf Urine WBC Clumps Few H (None) /hpf Urine Bacteria Rare H (None) /hpf Urine Yeast (Budding) Occasional H (None) /hpf Crossmatch See Detail 05/27/22 05/27/22 05/27/22 Range/Units 15:40 16:31 21:05 RBC (4.40-5.60) X 10*6/uL Hgb (13.0-17.0) g/dL Hct (39.6-50.0) % MCHC (32.0-37.0) g/dL Plt Count (140-440) X 10*3/uL Chloride (96-109) mmol/L Anion Gap (10.00-18.00) mmol/L BUN (9.0-27.0) mg/dL Creatinine (0.6-1.5) mg/dL Est GFR (CKD-EPI)AfAm (60.0-200.0) Est GFR (CKD-EPI)NonAf (60.0-200.0) BUN/Creatinine Ratio (12.00-20.00) Ratio POC Glucose (mg/dL) 228 H 273 H 196 H (70-110) mg/dL Calcium (8.7-10.3) mg/dL Urine Protein (Negative) Urine Glucose (UA) (Negative) Urine Blood (Negative) Ur Leukocyte Esterase (Negative) Urine RBC (0-5) /hpf Urine WBC (0-5) /hpf Urine WBC Clumps (None) /hpf Urine Bacteria (None) /hpf Urine Yeast (Budding) (None) /hpf Crossmatch 05/28/22 Range/Units 01:40 RBC (4.40-5.60) X 10*6/uL Hgb (13.0-17.0) g/dL Hct (39.6-50.0) % MCHC (32.0-37.0) g/dL Plt Count (140-440) X 10*3/uL Chloride (96-109) mmol/L Anion Gap (10.00-18.00) mmol/L BUN (9.0-27.0) mg/dL Creatinine (0.6-1.5) mg/dL Est GFR (CKD-EPI)AfAm (60.0-200.0) Est GFR (CKD-EPI)NonAf (60.0-200.0) BUN/Creatinine Ratio (12.00-20.00) Ratio POC Glucose (mg/dL) 143 H (70-110) mg/dL Calcium (8.7-10.3) mg/dL Urine Protein (Negative) Urine Glucose (UA) (Negative) Urine Blood (Negative) Ur Leukocyte Esterase (Negative) Urine RBC (0-5) /hpf Urine WBC (0-5) /hpf Urine WBC Clumps (None) /hpf Urine Bacteria (None) /hpf Urine Yeast (Budding) (None) /hpf Crossmatch Microbiology - Last 24 Hours (Table) 05/26/22 15:21 Urine Culture - Preliminary Urine,Voided Presumptive Staph aureus 05/26/22 15:47 Blood Culture - Preliminary Blood No Growth after 24 hours
[2022-05-28 06:01] LABS: Glucose,Whole Blood 110 mg/dL (70-110)
[2022-05-28] MEDS: LEVOTHYROXINE 100 MCG TAB PO SCH (06:02)
[2022-05-28] MEDS: INSULIN DETEMIR (LEVEMIR) 100 UNIT/ML SYR SQ SCH ×2 (06:32→16:50)
[2022-05-28] MEDS: INSULIN ASPART (NovoLOG) 100 UNIT/ML VIAL SQ SCH ×4 (06:32→21:52)
[2022-05-28] MEDS: IPRATROPIUM-ALBUTEROL 3 ML NEB INHALATION SCH ×4 (07:03→21:09)
[2022-05-28 08:36] LABS: Basophils # (A) 0 X 10*3/uL (0.00-0.10); Basophils % (A) 0 %; Eosinophils # (A) 0.09 X 10*3/uL (0.04-0.35); Eosinophils % (A) 1.4 %; HCT 25.4 % (39.6-50.0); Immature Grans, Automated 0.3 %; Lymphocytes # (A) 1.01 X 10*3/uL (0.90-5.00); Lymphocytes % (A) 16.3 %; MCH 29.9 pg (27.0-32.0); MCHC 31.5 g/dL (32.0-37.0); MCV 94.8 fL (80.0-97.0); Mean Platelet Volume 10.7 fL (9.5-12.2); Monocytes # (A) 0.29 X 10*3/uL (0.20-1.00); Monocytes % (A) 4.7 %; NRBC Per 100 WBC 0 /100 WBCS (0.0-0.0); Neutrophils % (A) 77.3 %; Platelet Count 85 X 10*3/uL (140-440); RBC 2.68 X 10*6/uL (4.40-5.60); RDW 14.1 % (11.5-14.5); WBC 6.21 X 10*3/uL (4.50-10.00)
[2022-05-28 08:54] LABS: African American GFR (CKD) 28.5 (60.0-200.0); Anion Gap 4.7 mmol/L (10.00-18.00); BUN/Creat Ratio 21.25 Ratio (12.00-20.00); Calcium 7.3 mg/dL (8.7-10.3); Carbon Dioxide 22.3 mmol/L (20.0-27.5); Non-African American GFR(CKD) 24.6 (60.0-200.0); Potassium 4.3 mmol/L (3.5-5.5)
[2022-05-28] MEDS: PANTOPRAZOLE 40 MG/10 ML VIAL IVP SCH (09:44)
[2022-05-28] MEDS: SODIUM BICARBONATE TAB 650 MG TAB PO SCH ×2 (09:45→21:52)
[2022-05-28] MEDS: TAMSULOSIN 0.4 MG CAP.ER.24H PO SCH (09:45)
[2022-05-28] MEDS: CALCIUM CARBONATE 500 MG CHEWABLE PO SCH ×2 (09:45→21:53)
[2022-05-28] MEDS: MAGNESIUM OXIDE 400 MG TAB PO SCH (09:45)
[2022-05-28] MEDS: FAMOTIDINE 20 MG TAB PO SCH (09:45)
[2022-05-28] MEDS: VIT A,C & E-LUTEIN-MINERALS 1 EACH TAB PO SCH ×2 (09:45→21:52)
[2022-05-28] MEDS: SODIUM FERRIC GLUCONAT-SUCROSE 125 MG in SODIUM CHLORIDE 0.9% 100 ML IVPB SCH (09:45)
[2022-05-28] MEDS: METOPROLOL SUCCINATE (ER) 50 MG TAB.ER.24H PO SCH (09:45)
[2022-05-28 11:04] LABS: Glucose,Whole Blood 182 mg/dL (70-110)
[2022-05-28 11:20] LABS: Prothrombin Time 10.4 sec (9.0-12.0)
--- NOTE | 2022-05-28 12:09 | P.PN ---
Subjective Progress Note Date: 05/27/22 Principal diagnosis: MRSA complicated urinary tract infection Patient is a 81-year-old male with a past medical history significant for coronary disease diabetes mellitus hypertension hyperlipidemia also with a previous history of TURP recent urine retention and gross hematuria requiring Mcgovern catheter placement, presented to hospital with hematuria patient did have significant positive UA with urine culture growing MRSA. on today's evaluation is 05/27/2022, the patient denies having any fever or chills, the patient is breathing comfortably on nasal cannula oxygen, denies any chest pain shortness of breath or cough no abdominal pain or diarrhea Objective - Vital Signs Vital signs: Vital Signs Temp 98.5 F 05/27/22 07:53 Pulse 68 05/27/22 08:36 Resp 15 05/27/22 07:53 BP 106/53 05/27/22 07:53 Pulse Ox 95 05/27/22 07:53 FiO2 2 05/24/22 07:56 Intake & Output 05/26/22 05/27/22 05/27/22 18:59 06:59 18:59 Intake Total 770 Output Total 2400 Balance 770 -2400 Intake: Intake, IV Titration 150 Amount DAPTOmycin 350 mg In 50 Sodium Chloride 0.9% 50 ml @ 100 mls/hr IVPB Q48H [facility] Rx#:[id number] Sodium Ferric Gluconat- 100 Sucrose 125 mg In Sodium Chloride 0.9% 100 ml @ 100 mls/hr IVPB DAILY [facility] Rx#:[id number] Blood Product 620 Rc As-1 Unit 310 [id number] Output: Urine 2400 Other: Voiding Method Indwelling Catheter Indwelling Catheter # Bowel Movements 4 1 - Exam GENERAL DESCRIPTION: An elderly male lying in bed in no distress RESPIRATORY SYSTEM: Unlabored breathing , decreased breath sounds at bases HEART: S1 S2 regular rate and rhythm , ABDOMEN: Soft , no tenderness EXTREMITIES: No edema feet - Labs CBC & Chem 7: 05/28/22 04:50 05/28/22 04:50 Labs: Abnormal Lab Results - Last 24 Hours (Table) 05/23/22 05/26/22 05/26/22 Range/Units 15:30 11:15 11:51 RBC 1.96 L (4.30-5.90) m/uL Hgb 6.2 L* (13.0-17.5) gm/dL Hct 18.6 L* (39.0-53.0) % MCHC (32.0-37.0) g/dL Plt Count 100 L (150-450) k/uL Chloride (96-109) mmol/L Anion Gap (10.00-18.00) mmol/L BUN (9.0-27.0) mg/dL Creatinine (0.6-1.5) mg/dL Est GFR (CKD-EPI)AfAm (60.0-200.0) Est GFR (CKD-EPI)NonAf (60.0-200.0) BUN/Creatinine Ratio (12.00-20.00) Ratio POC Glucose (mg/dL) 267 H (70-110) mg/dL Calcium (8.7-10.3) mg/dL Urine Protein (Negative) Urine Glucose (UA) (Negative) Urine Blood (Negative) Ur Leukocyte Esterase (Negative) Urine RBC (0-5) /hpf Urine WBC (0-5) /hpf Urine WBC Clumps (None) /hpf Urine Bacteria (None) /hpf Urine Mucus (None) /hpf Crossmatch See Detail 05/26/22 05/26/22 05/26/22 Range/Units 15:21 16:30 21:15 RBC (4.30-5.90) m/uL Hgb (13.0-17.5) gm/dL Hct (39.0-53.0) % MCHC (32.0-37.0) g/dL Plt Count (150-450) k/uL Chloride (96-109) mmol/L Anion Gap (10.00-18.00) mmol/L BUN (9.0-27.0) mg/dL Creatinine (0.6-1.5) mg/dL Est GFR (CKD-EPI)AfAm (60.0-200.0) Est GFR (CKD-EPI)NonAf (60.0-200.0) BUN/Creatinine Ratio (12.00-20.00) Ratio POC Glucose (mg/dL) 255 H 238 H (70-110) mg/dL Calcium (8.7-10.3) mg/dL Urine Protein 2+ H (Negative) Urine Glucose (UA) Trace H (Negative) Urine Blood Large H (Negative) Ur Leukocyte Esterase Large H (Negative) Urine RBC >182 H (0-5) /hpf Urine WBC >182 H (0-5) /hpf Urine WBC Clumps Many H (None) /hpf Urine Bacteria Many H (None) /hpf Urine Mucus Rare H (None) /hpf Crossmatch 05/27/22 05/27/22 05/27/22 Range/Units 01:54 04:05 04:05 RBC 2.31 L (4.30-5.90) m/uL Hgb 7.0 L (13.0-17.5) gm/dL Hct 22.1 L (39.0-53.0) % MCHC 31.7 L (32.0-37.0) g/dL Plt Count 92 L (150-450) k/uL Chloride 112 H (96-109) mmol/L Anion Gap 6.40 L (10.00-18.00) mmol/L BUN 62.1 H (9.0-27.0) mg/dL Creatinine 2.6 H (0.6-1.5) mg/dL Est GFR (CKD-EPI)AfAm 25.8 L (60.0-200.0) Est GFR (CKD-EPI)NonAf 22.3 L (60.0-200.0) BUN/Creatinine Ratio 23.88 H (12.00-20.00) Ratio POC Glucose (mg/dL) 122 H (70-110) mg/dL Calcium 7.2 L (8.7-10.3) mg/dL Urine Protein (Negative) Urine Glucose (UA) (Negative) Urine Blood (Negative) Ur Leukocyte Esterase (Negative) Urine RBC (0-5) /hpf Urine WBC (0-5) /hpf Urine WBC Clumps (None) /hpf Urine Bacteria (None) /hpf Urine Mucus (None) /hpf Crossmatch 05/27/22 05/27/22 Range/Units 06:19 11:04 RBC (4.30-5.90) m/uL Hgb (13.0-17.5) gm/dL Hct (39.0-53.0) % MCHC (32.0-37.0) g/dL Plt Count (150-450) k/uL Chloride (96-109) mmol/L Anion Gap (10.00-18.00) mmol/L BUN (9.0-27.0) mg/dL Creatinine (0.6-1.5) mg/dL Est GFR (CKD-EPI)AfAm (60.0-200.0) Est GFR (CKD-EPI)NonAf (60.0-200.0) BUN/Creatinine Ratio (12.00-20.00) Ratio POC Glucose (mg/dL) 147 H 305 H (70-110) mg/dL Calcium (8.7-10.3) mg/dL Urine Protein (Negative) Urine Glucose (UA) (Negative) Urine Blood (Negative) Ur Leukocyte Esterase (Negative) Urine RBC (0-5) /hpf Urine WBC (0-5) /hpf Urine WBC Clumps (None) /hpf Urine Bacteria (None) /hpf Urine Mucus (None) /hpf Crossmatch Microbiology - Last 24 Hours (Table) 05/26/22 15:21 Urine Culture - Preliminary Urine,Voided 05/23/22 16:51 Urine Culture - Final Urine,Voided Methicillin resist S. aureus Assessment and Plan (1) Urinary tract infection Current Visit: No Status: Acute Code(s): N39.0 - URINARY TRACT INFECTION, SITE NOT SPECIFIED SNOMED Code(s): 77394015 Plan: 1patient with a positive urine culture with MRSA in this patient who do have a history of TURP urine retention requiring Mcgovern catheter placement and recent hematuria concerning for possible catheter associated UTI. 2 blood culture has been obtained and currently pending 3patient did have ultrasound of the kidney bladder area on 05/13/2022 mentioning moderate hydronephrosis ultrasound to be repeated to make sure no evidence of any worsening hydronephrosis 4patient to continue with daptomycin 4 mg/kg will need outpatient IV antibiotics on discharge Time with Patient: Less than 30
--- NOTE | 2022-05-28 12:11 | P.PN ---
Subjective Progress Note Date: 05/28/22 Principal diagnosis: MRSA complicated urinary tract infection Patient is a 81-year-old male with a past medical history significant for coronary disease diabetes mellitus hypertension hyperlipidemia also with a previous history of TURP recent urine retention and gross hematuria requiring Mcgovern catheter placement, presented to hospital with hematuria patient did have significant positive UA with urine culture growing MRSA. on today's evaluation is 05/28/2022, the patient continues to be afebrile, the patient is breathing comfortably on nasal cannula oxygen, the patient denies any chest pain shortness of breath or cough , the patient denies nausea no vomiting no abdominal pain or diarrhea Objective - Vital Signs Vital signs: Vital Signs Temp 97.8 F 05/28/22 07:20 Pulse 64 05/28/22 11:33 Resp 17 05/28/22 07:20 BP 112/54 05/28/22 07:20 Pulse Ox 97 05/28/22 07:20 FiO2 2 05/24/22 07:56 Intake & Output 05/27/22 05/28/22 05/28/22 18:59 06:59 18:59 Intake Total 310 250 Output Total 400 Balance 310 -150 Intake: Oral 250 Blood Product 310 Rc As-1 Unit 310 [id number] Output: Urine 400 Other: Voiding Method External Catheter # Voids 1 # Bowel Movements 1 1 - Exam GENERAL DESCRIPTION: An elderly male lying in bed in no distress RESPIRATORY SYSTEM: Unlabored breathing , decreased breath sounds at bases HEART: S1 S2 regular rate and rhythm , ABDOMEN: Soft , no tenderness EXTREMITIES: No edema feet - Labs CBC & Chem 7: 05/28/22 04:50 05/28/22 04:50 Labs: Abnormal Lab Results - Last 24 Hours (Table) 05/27/22 05/27/22 05/27/22 Range/Units 11:29 12:50 15:40 RBC (4.40-5.60) X 10*6/uL Hgb (13.0-17.0) g/dL Hct (39.6-50.0) % MCHC (32.0-37.0) g/dL Plt Count (140-440) X 10*3/uL Anion Gap (10.00-18.00) mmol/L BUN (9.0-27.0) mg/dL Creatinine (0.6-1.5) mg/dL Est GFR (CKD-EPI)AfAm (60.0-200.0) Est GFR (CKD-EPI)NonAf (60.0-200.0) BUN/Creatinine Ratio (12.00-20.00) Ratio POC Glucose (mg/dL) 228 H (70-110) mg/dL Calcium (8.7-10.3) mg/dL Urine Protein 1+ H (Negative) Urine Glucose (UA) Trace H (Negative) Urine Blood Moderate H (Negative) Ur Leukocyte Esterase Large H (Negative) Urine RBC 53 H (0-5) /hpf Urine WBC >182 H (0-5) /hpf Urine WBC Clumps Few H (None) /hpf Urine Bacteria Rare H (None) /hpf Urine Yeast (Budding) Occasional H (None) /hpf Crossmatch See Detail 05/27/22 05/27/22 05/28/22 Range/Units 16:31 21:05 01:40 RBC (4.40-5.60) X 10*6/uL Hgb (13.0-17.0) g/dL Hct (39.6-50.0) % MCHC (32.0-37.0) g/dL Plt Count (140-440) X 10*3/uL Anion Gap (10.00-18.00) mmol/L BUN (9.0-27.0) mg/dL Creatinine (0.6-1.5) mg/dL Est GFR (CKD-EPI)AfAm (60.0-200.0) Est GFR (CKD-EPI)NonAf (60.0-200.0) BUN/Creatinine Ratio (12.00-20.00) Ratio POC Glucose (mg/dL) 273 H 196 H 143 H (70-110) mg/dL Calcium (8.7-10.3) mg/dL Urine Protein (Negative) Urine Glucose (UA) (Negative) Urine Blood (Negative) Ur Leukocyte Esterase (Negative) Urine RBC (0-5) /hpf Urine WBC (0-5) /hpf Urine WBC Clumps (None) /hpf Urine Bacteria (None) /hpf Urine Yeast (Budding) (None) /hpf Crossmatch 05/28/22 05/28/22 05/28/22 Range/Units 04:50 04:50 11:03 RBC 2.68 L (4.40-5.60) X 10*6/uL Hgb 8.0 L (13.0-17.0) g/dL Hct 25.4 L (39.6-50.0) % MCHC 31.5 L (32.0-37.0) g/dL Plt Count 85 L (140-440) X 10*3/uL Anion Gap 4.70 L (10.00-18.00) mmol/L BUN 51.0 H (9.0-27.0) mg/dL Creatinine 2.4 H (0.6-1.5) mg/dL Est GFR (CKD-EPI)AfAm 28.5 L (60.0-200.0) Est GFR (CKD-EPI)NonAf 24.6 L (60.0-200.0) BUN/Creatinine Ratio 21.25 H (12.00-20.00) Ratio POC Glucose (mg/dL) 182 H (70-110) mg/dL Calcium 7.3 L (8.7-10.3) mg/dL Urine Protein (Negative) Urine Glucose (UA) (Negative) Urine Blood (Negative) Ur Leukocyte Esterase (Negative) Urine RBC (0-5) /hpf Urine WBC (0-5) /hpf Urine WBC Clumps (None) /hpf Urine Bacteria (None) /hpf Urine Yeast (Budding) (None) /hpf Crossmatch Microbiology - Last 24 Hours (Table) 05/26/22 15:21 Urine Culture - Preliminary Urine,Voided Presumptive Staph aureus 05/26/22 15:47 Blood Culture - Preliminary Blood No Growth after 24 hours Assessment and Plan (1) Urinary tract infection Current Visit: No Status: Acute Code(s): N39.0 - URINARY TRACT INFECTION, SITE NOT SPECIFIED SNOMED Code(s): 34927494 Plan: 1patient with a positive urine culture with MRSA in this patient who do have a history of TURP urine retention requiring Mcgovern catheter placement and recent hematuria concerning for possible catheter associated UTI. 2 blood culture has been obtained and has been negative so far 3patient did have ultrasound of the kidney bladder area on 05/13/2022 mentioning moderate hydronephrosis, repeat ultrasound is currently pending to make sure no evidence of any worsening hydronephrosis 4patient to continue with daptomycin 4 mg/kg , patient blood culture has been negative so far he'll be able to get a midline and plan is for a two-week course of IV antibiotic on discharge Time with Patient: Less than 30
--- NOTE | 2022-05-28 12:32 | P.PN ---
Subjective Patient is seen for follow-up for acute kidney injury and chronic kidney disease. He was admitted to the hospital with hematuria. Patient has an i ndwelling Mcgovern catheter for obstructive uropathy. Hematuria has resolved. Urine in the Mcgovern bag appears to be yellow and clear. Serum creatinine down to 2.6 mg/dL today. Overall patient is feeling better. Urine culture is growing MRSA and patient has been started on daptomycin. Going for PICC line today Objective - Vital Signs Vital signs: Vital Signs Temp 97.8 F 05/28/22 07:20 Pulse 64 05/28/22 11:33 Resp 17 05/28/22 07:20 BP 112/54 05/28/22 07:20 Pulse Ox 97 05/28/22 07:20 FiO2 2 05/24/22 07:56 Intake & Output 05/27/22 05/28/22 05/28/22 18:59 06:59 18:59 Intake Total 310 250 Output Total 400 Balance 310 -150 Intake: Oral 250 Blood Product 310 Rc As-1 Unit 310 [id number] Output: Urine 400 Other: Voiding Method External Catheter # Voids 1 # Bowel Movements 1 1 - Exam Awake, comfortable, no acute distress Examination of the heart S1 and S2 Examination lungs bilateral breath sounds are heard Abdomen is soft nontender Examination lower extremity shows chronic skin changes no significant edema noted bilaterally 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 - Labs CBC & Chem 7: 05/28/22 04:50 05/28/22 04:50 Labs: Abnormal Lab Results - Last 24 Hours (Table) 05/27/22 05/27/22 05/27/22 Range/Units 11:29 12:50 15:40 RBC (4.40-5.60) X 10*6/uL Hgb (13.0-17.0) g/dL Hct (39.6-50.0) % MCHC (32.0-37.0) g/dL Plt Count (140-440) X 10*3/uL Anion Gap (10.00-18.00) mmol/L BUN (9.0-27.0) mg/dL Creatinine (0.6-1.5) mg/dL Est GFR (CKD-EPI)AfAm (60.0-200.0) Est GFR (CKD-EPI)NonAf (60.0-200.0) BUN/Creatinine Ratio (12.00-20.00) Ratio POC Glucose (mg/dL) 228 H (70-110) mg/dL Calcium (8.7-10.3) mg/dL Urine Protein 1+ H (Negative) Urine Glucose (UA) Trace H (Negative) Urine Blood Moderate H (Negative) Ur Leukocyte Esterase Large H (Negative) Urine RBC 53 H (0-5) /hpf Urine WBC >182 H (0-5) /hpf Urine WBC Clumps Few H (None) /hpf Urine Bacteria Rare H (None) /hpf Urine Yeast (Budding) Occasional H (None) /hpf Crossmatch See Detail 05/27/22 05/27/22 05/28/22 Range/Units 16:31 21:05 01:40 RBC (4.40-5.60) X 10*6/uL Hgb (13.0-17.0) g/dL Hct (39.6-50.0) % MCHC (32.0-37.0) g/dL Plt Count (140-440) X 10*3/uL Anion Gap (10.00-18.00) mmol/L BUN (9.0-27.0) mg/dL Creatinine (0.6-1.5) mg/dL Est GFR (CKD-EPI)AfAm (60.0-200.0) Est GFR (CKD-EPI)NonAf (60.0-200.0) BUN/Creatinine Ratio (12.00-20.00) Ratio POC Glucose (mg/dL) 273 H 196 H 143 H (70-110) mg/dL Calcium (8.7-10.3) mg/dL Urine Protein (Negative) Urine Glucose (UA) (Negative) Urine Blood (Negative) Ur Leukocyte Esterase (Negative) Urine RBC (0-5) /hpf Urine WBC (0-5) /hpf Urine WBC Clumps (None) /hpf Urine Bacteria (None) /hpf Urine Yeast (Budding) (None) /hpf Crossmatch 05/28/22 05/28/22 05/28/22 Range/Units 04:50 04:50 11:03 RBC 2.68 L (4.40-5.60) X 10*6/uL Hgb 8.0 L (13.0-17.0) g/dL Hct 25.4 L (39.6-50.0) % MCHC 31.5 L (32.0-37.0) g/dL Plt Count 85 L (140-440) X 10*3/uL Anion Gap 4.70 L (10.00-18.00) mmol/L BUN 51.0 H (9.0-27.0) mg/dL Creatinine 2.4 H (0.6-1.5) mg/dL Est GFR (CKD-EPI)AfAm 28.5 L (60.0-200.0) Est GFR (CKD-EPI)NonAf 24.6 L (60.0-200.0) BUN/Creatinine Ratio 21.25 H (12.00-20.00) Ratio POC Glucose (mg/dL) 182 H (70-110) mg/dL Calcium 7.3 L (8.7-10.3) mg/dL Urine Protein (Negative) Urine Glucose (UA) (Negative) Urine Blood (Negative) Ur Leukocyte Esterase (Negative) Urine RBC (0-5) /hpf Urine WBC (0-5) /hpf Urine WBC Clumps (None) /hpf Urine Bacteria (None) /hpf Urine Yeast (Budding) (None) /hpf Crossmatch Microbiology - Last 24 Hours (Table) 05/26/22 15:21 Urine Culture - Preliminary Urine,Voided Presumptive Staph aureus 05/26/22 15:47 Blood Culture - Preliminary Blood No Growth after 24 hours Assessment and Plan Assessment: 1. Acute kidney injury, ATN and obstructive uropathy from last admission curre ntly improving. Serum creatinine had peaked at about 3.2 mg/dL during his last admission. Ultrasound showed bilateral moderate hydronephrosis. Mcgovern catheter was placed last admission. Creatinine down to 2.4 today 2. 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 Hematuria, mostly traumatic 4. Anemia associated with significant hematuria, status post packed RBCs transfusion. 5. History of GI bleed with stool for occult blood positive this admission 6. Anemia of chronic disease maintained on Aranesp. Iron deficiency noted maintained on IV iron 7. MRSA UTI maintained on daptomycin Plan: . Continue with Mcgovern catheter IV antibiotics as per ID DC IV iron Continue with Aranesp Okay to proceed with PICC line
[2022-05-28] MEDS ORDERED: LIDOCAINE 1% INJ 10MG/ML (5 ML VIAL-PF) SQ ONE (12:54)
--- NOTE | 2022-05-28 13:17 | IR ---
PICC LINE PLACEMENT: HISTORY: Infection requiring long-term antibiotic therapy PROCEDURE: Ultrasound and fluoroscopic guidance of PICC line placement. COMPLICATIONS: None ANESTHESIA: 1. 1% Lidocaine locally. FINDINGS/TECHNIQUE: The procedure was explained to the patient. The risks, complications, benefits and alternatives were discussed and any questions were answered. Informed consent was obtained. The patient was placed supine on the fluoroscopic table and prepped and draped in the usual sterile fash ion. Utilizing a 21 gauge needle and sonographic and fluoroscopic guidance, access in the right cep halic vein was achieved and there is placement of a 0.018 guidewire. The vein is patent. A 4-F capone th was placed over the guidewire. The guidewire and dilator were removed and a 4-F. PICC line was pl aced through the sheath with the tip at the level of the SVC. The sheath was removed, the catheter w as flushed and sutured into position. The patient was stable throughout the procedure and remained s table upon discharge from the Department of Radiology. The vein puncture was patent under ultrasound. A jaramillo scale image was obtained to document patency of the vein punctured. All elements of the maximal barrier technique were utilized. FLUOROSCOPY TIME: 0.2 minutes in 1 images submitted IMPRESSION: Successful PICC line placement under ultrasound and fluoroscopic guidance.
--- NOTE | 2022-05-28 15:26 | US ---
EXAMINATION TYPE: US kidneys/renal and bladder DATE OF EXAM: 05/28/2022 COMPARISON: Ultrasound 05/13/2022 CLINICAL HISTORY: MRSA complicated UTI and hydronephrosis. UTI, H/O [place] EXAM MEASUREMENTS: Right Kidney: 10.9 x 5.9 x 4.8 cm Left Kidney: 11.3 x 5.7 x 4.3 cm Right Kidney: Lobulated cyst lateral= 5.2 x 2.9 x 4.0 cm/ Moderate hydro as visualized on prior, poss ible slight improvement when compared to prior Left Kidney: Limited views due to pt immobility, Moderate hydro with possible slight improvement when compared to prior Bladder: Not evaluated. Patient has catheter in place IMPRESSION: Bilateral hydronephrosis.
[2022-05-28] MEDS: DAPTOmycin 350 MG in SODIUM CHLORIDE 0.9% 50 ML IVPB SCH (15:56)
[2022-05-28 16:45] LABS: Glucose,Whole Blood 239 mg/dL (70-110)
[2022-05-28 19:17] LABS: Glucose,Whole Blood 248 mg/dL (70-110)
[2022-05-28] MEDS: QUEtiapine 25 MG TAB PO SCH (21:53)
[2022-05-29] MEDS ORDERED: ACETAMINOPHEN TAB 325 MG TAB PO PRN (03:19)
--- NOTE | 2022-05-29 03:28 | P.PN ---
Subjective Progress Note Date: 05/29/22 This is a 81-year-old male who presented to the emergency department from [facility] With concerns of bleeding noted and the Mcgovern with hematuria and also possible blood in the stool. Patient had been recently discharged with RSV, atrial flutter, acute kidney injury and retention requiring indwelling Mcgovern catheter placement. Patient had been evaluated by urology along with nephrology during last admission a few days ago and stable recommending outpatient follow- up with urology and continue with indwelling Mcgovern catheter. Hemoglobin had been stable in the low 11/29 and does have a history of anemia. Patient also with a significant past medical history of asthma/COPD, coronary artery disease, CAB G, pacemaker, diabetes mellitus, hypertension, hypothyroid and follows with Dr. Samuel Venegas in the outpatient setting. Patient with significant weakness seen by physical therapy recommending rehab in the first patient wanted to go home although was agreeable to rehab and was sent there with continued indwelling Mcgovern catheter and instructed to have outpatient follow-up with urology. Patient was started on Aranesp and anticoagulation was on hold due to the hematuria. Patient was on a prednisone taper along with DuoNeb treatments oral amiodarone that was on a taper along with Flomax. Patient admitted for general surgery consultation along with urology for hematuria and possible GI bleed. Labs reviewed on admission show a WBC of 12.7 most likely reactive as patient had been on IV steroids and recently transitioned oral prednisone, hemoglobin was 7.4, platelets low and have been low at 108, sodium was 136 with a potassium of 5.1, BUN that has been persistently high was 1:30 with a creatinine of 3.04, hyperglycemia noted and patient had a plasma lactic acid level of 2.2. Occult stool was positive. Chest x-ray revealed post CABG changes with left sided AICD noted and COPD with no acute process noted. EKG with an electronic atrial paced with a prolonged QT interval of 484. 05/25/2022 Patient is seen and evaluated in follow-up this morning lethargic although easily arousable. Patient did have episodes of hypoglycemia most likely due to poor oral intake and recommended to monitor Accu-Cheks before meals and at bedtime and as needed closely. Urology and nephrology following and recommend continue Mcgovern catheter. Iron studies being ordered. Patient's hematuria is n oted to be improving. Recommend aspiration precautions with head of the bed elevated 45 and supervision with meals. Recommended thickened liquids. Patient is currently afebrile denies chest pain or shortness of breath. Patient does have intermittent periods of confusion and is a poor historian. This is his baseline. 05/26/2022 Patient seen and evaluated in follow-up today extremely pale and hemoglobin was found to be 6.4 with hematocrit of 18.6. WBC is normal, platelets are decreased as well at 100. Urology and nephrology following recommending to continue with indwelling Mcgovern catheter with possible trial void tomorrow and hematuria appears resolved as there is clear yellow urine in the Mcgovern catheter. Urine culture finalized showing MRSA in the urine with multiple resistance and will consult infectious disease and appreciate input and recommendations. Patient not eating very well recommend ground diet with aspiration precautions and thickened liquids. Will follow up on repeat labs and also give a dose of Lasix as patient had 2 units of PRBCs today. 05/27/2022 Patient seen today being followed by nephrology, urology, infectious disease. Patient is continued on IV antibiotics if urine culture was showing MRSA and awaiting repeat urine culture. Per urology patient had Mcgovern catheter removed and trial void patient is waiting recommend external catheter for now to monitor intake and output. Patient is having bowel movements and no bleeding noted. Hemoglobin was found to be 7.0 and will give a unit of PRBCs recommend follow-up labs. Nephrology was recommending to continue indwelling Mcgovern catheter and will discuss with consultations hypoxic and plan moving forward. Plan is to return to ECF once stabilized discharge. Patient is afebrile denies shortness of breath or chest pain. Patient is tolerating soft diet and recommend aspiration precautions. Patient needs encouragement with oral intake. Blood sugars continue to be uncontrolled and will adjust insulins. Recommend PT/OT evaluation for continued significant weakness. 05/28/2022 Patient is seen in follow-up today with multiple medical consultations following. Repeat ultrasound of the kidneys were ordered to monitor for any worsening hydronephrosis. Patient did have an indwelling Mcgovern catheter removed and has been voiding and monitoring with external catheter on. Patient is continued on IV daptomycin and repeat urinalysis showing staph aureus and plan is for patient to receive a PICC line for 2 weeks IV antibiotic therapy outpatient. Urology following as needed and will follow-up outpatient recommending to continue current regimen. Hemoglobin is improved at 8.0 today with no active bleeding noted. Recommend monitoring blood sugars and continue current regimen. Encouraged increase activity as tolerated and encouraged oral intake. Plan is for patient to return to rehab as patient continues to be significantly weak. Working on discharge planning with case management following an currently awaiting renal ultrasound. Review of systems: Constitutional: no reports of fatigue, no fever, or chills Cardiovascular: No reports of chest pain or palpitations Respiratory: No reports of worsening shortness of breath or cough GI: No reports of nausea, vomiting, or diarrhea : No reports of dysuria or retention, reports urinating post Mcgovern catheter removal Neurovascular: reports of generalized weakness All medications have been reviewed Active Medications Acetaminophen (Acetaminophen Tab 325 Mg Tab) 650 mg PO Q6HR PRN PRN Reason: Fever and/ or Pain Albuterol Sulfate (Albuterol Nebulized 2.5 Mg/3 Ml) 2.5 mg INHALATION RT-QID PRN PRN Reason: Shortness Of Breath Albuterol/Ipratropium (Ipratropium-Albuterol 3 Ml Neb) 3 ml INHALATION RT-QID [facility] Last Admin: 05/28/22 21:09 Dose: 3 ml Calcium Carbonate/Glycine (Calcium Carbonate 500 Mg Chewable) 500 mg PO BID [facility] Last Admin: 05/28/22 21:53 Dose: 500 mg Darbepoetin Murali (Darbepoetin Murali 40 Mcg/0.4 Ml Syringe) 40 mcg SQ FR [facility] Last Admin: 05/23/22 22:39 Dose: 40 mcg Famotidine (Famotidine 20 Mg Tab) 20 mg PO DAILY [facility] Last Admin: 05/28/22 09:45 Dose: 20 mg Glipizide (Glipizide 2.5 Mg Tab) 2.5 mg PO AC-BID [facility] Last Admin: 05/28/22 16:50 Dose: 2.5 mg Daptomycin 350 mg/ Sodium (Chloride) 50 mls @ 100 mls/hr IVPB Q48H [facility]; Protocol Last Admin: 05/28/22 15:56 Dose: 100 mls/hr Insulin Aspart (Insulin Aspart (Novolog) 100 Unit/Ml Vial) 4 unit SQ ACHS [facility] Last Admin: 05/28/22 21:52 Dose: 4 unit Insulin Detemir (Insulin Detemir (Levemir) 100 Unit/Ml Syr) 10 unit SQ BID@0700,1600 [facility] Last Admin: 05/28/22 16:50 Dose: 10 unit Levothyroxine Sodium (Levothyroxine 100 Mcg Tab) 100 mcg PO DAILY@0630 [facility] Last Admin: 05/28/22 06:02 Dose: 100 mcg Magnesium Oxide (Magnesium Oxide 400 Mg Tab) 400 mg PO DAILY [facility] Last Admin: 05/28/22 09:45 Dose: 400 mg Metoprolol Succinate (Metoprolol Succinate (Er) 50 Mg Tab.Er.24h) 150 mg PO DAILY [facility] Last Admin: 05/28/22 09:45 Dose: 150 mg Multivitamins/Minerals (Vit A,C & W-Dxzqza-Vfjldawt 1 Each Tab) 1 each PO BID [facility] Last Admin: 05/28/22 21:52 Dose: 1 each Naloxone HCl (Naloxone 0.4 Mg/Ml 1 Ml Vial) 0.2 mg IV Q2M PRN PRN Reason: Opioid Reversal Pantoprazole Sodium (Pantoprazole 40 Mg/10 Ml Vial) 40 mg IVP DAILY [facility] Last Admin: 05/28/22 09:44 Dose: 40 mg Quetiapine Fumarate (Quetiapine 25 Mg Tab) 25 mg PO HS [facility] Last Admin: 05/28/22 21:53 Dose: 25 mg Sodium Bicarbonate (Sodium Bicarbonate Tab 650 Mg Tab) 650 mg PO BID [facility] Last Admin: 05/28/22 21:52 Dose: 650 mg Tamsulosin HCl (Tamsulosin 0.4 Mg Cap.Er.24h) 0.4 mg PO DAILY [facility] Last Admin: 05/28/22 09:45 Dose: 0.4 mg PHYSICAL EXAMINATION: GENERAL: The patient is alert and oriented x2-3, poor historian, cachectic, ill-appearing, pale HEENT: Pupils are round and equally reacting to light. EOMI. no scleral icterus. No conjunctival pallor. Normocephalic, atraumatic. No pharyngeal erythema. No thyromegaly. CARDIOVASCULAR: S1 and S2 muffled , Irregular PULMONARY: diminished breath sounds bilaterally with no wheezing, some scattered noted. ABDOMEN: soft. Nontender on exam. non-distended, normoactive bowel sounds. No palpable organomegaly. MUSCULOSKELETAL: No joint swelling or deformity. EXTREMITIES: No cyanosis, clubbing generalized lower edema noted NEUROLOGICAL: Gross neurological examination did not reveal any focal deficits. Diffuse weakness SKIN: No rashes. Pale Assessment: Hematuria most likely secondary to trauma from insertion of indwelling Mcgovern catheter on recent previous admission History of recent admission with hematuria and acute kidney injury Acute on chronic hypoxic respiratory failure secondary to COPD, chronically wears 2-3 L outpatient Chronic anemia most likely due to chronic kidney disease MRSA in the urine Leukocytosis, most likely reactive from steroids, improved Diabetes mellitus, uncontrolled, insulin-dependent with hyperglycemia Lactic acidosis secondary to dehydration Possible acute GI bleed, although suspicion is low Recent hospitalization for RSV Atrial flutter History of AICD placement GI prophylaxis DVT prophylaxis, SCDs, anticoagulation on hold due to hematuria No code Plan: Recommend to continue with current medications and management with urology ,Infectious disease and nephrology following as well Patient Mcgovern catheter removed per urology recommendations and patient is voiding without repeat urine sent showing staph aureus patient is scheduled to undergo repeat bladderkidney ultrasound to monitor for any worsening hy dronephrosis. Patient is voiding post catheter removal and recommend external catheter on to monitor intake and output Patient scheduled to receive a PICC line and will be continued on IV daptomycin for 2 weeks in the outpatient setting Hemoglobin improved at 8.0 today with no active bleeding noted Recommend monitoring Accu-Cheks before meals and at bedtime and as needed and will continue current medication regimen. Patient with extremely uncontrolled blood sugars recommend to monitor closely as patient is having episodes of hypoglycemia. Encouraged oral intake and will continue with ground chopped diet and aspiration precautions ecommend PT/OT therapy evaluation as patient continues to be significantly weak and will be returning to ECF for continued strength and mobility Due to multiple complex medical issues, prognosis is guarded Possible discharge in 24 hours The impression and plan of care has been dictated by Yaquelin Frances, nurse practitioner as directed. Dr. Jaime MD I have performed a history and examination and MDM of this patient, discussed the same with the dictator, and agree with the dictator's assessment and plan as written ,documented as a scribe. Based on total visit time, I have performed more than 50% of the visit. Any additional findings or plans will be noted. Objective - Vital Signs Vital signs: Vital Signs Temp 99.8 F H 05/29/22 02:00 Pulse 58 L 05/29/22 02:00 Resp 17 05/29/22 02:00 BP 128/46 05/29/22 02:00 Pulse Ox 96 05/29/22 02:00 FiO2 2 05/24/22 07:56 Intake & Output 05/28/22 05/28/22 05/29/22 06:59 18:59 06:59 Intake Total 250 Output Total 400 Balance -150 Intake: Oral 250 Output: Urine 400 Other: Voiding Method External Catheter External Catheter External Catheter # Voids 5 # Bowel Movements 1 - Labs CBC & Chem 7: 05/28/22 04:50 05/28/22 04:50 Labs: Abnormal Lab Results - Last 24 Hours (Table) 05/28/22 05/28/22 05/28/22 Range/Units 04:50 04:50 11:03 RBC 2.68 L (4.40-5.60) X 10*6/uL Hgb 8.0 L (13.0-17.0) g/dL Hct 25.4 L (39.6-50.0) % MCHC 31.5 L (32.0-37.0) g/dL Plt Count 85 L (140-440) X 10*3/uL Anion Gap 4.70 L (10.00-18.00) mmol/L BUN 51.0 H (9.0-27.0) mg/dL Creatinine 2.4 H (0.6-1.5) mg/dL Est GFR (CKD-EPI)AfAm 28.5 L (60.0-200.0) Est GFR (CKD-EPI)NonAf 24.6 L (60.0-200.0) BUN/Creatinine Ratio 21.25 H (12.00-20.00) Ratio POC Glucose (mg/dL) 182 H (70-110) mg/dL Calcium 7.3 L (8.7-10.3) mg/dL 05/28/22 05/28/22 Range/Units 16:44 19:16 RBC (4.40-5.60) X 10*6/uL Hgb (13.0-17.0) g/dL Hct (39.6-50.0) % MCHC (32.0-37.0) g/dL Plt Count (140-440) X 10*3/uL Anion Gap (10.00-18.00) mmol/L BUN (9.0-27.0) mg/dL Creatinine (0.6-1.5) mg/dL Est GFR (CKD-EPI)AfAm (60.0-200.0) Est GFR (CKD-EPI)NonAf (60.0-200.0) BUN/Creatinine Ratio (12.00-20.00) Ratio POC Glucose (mg/dL) 239 H 248 H (70-110) mg/dL Calcium (8.7-10.3) mg/dL Microbiology - Last 24 Hours (Table) 05/26/22 15:21 Urine Culture - Final Urine,Voided Staphylococcus aureus 05/26/22 15:47 Blood Culture - Preliminary Blood No Growth after 48 hours
[2022-05-29 06:12] LABS: Glucose,Whole Blood 67 mg/dL (70-110)
[2022-05-29] MEDS: LEVOTHYROXINE 100 MCG TAB PO SCH (06:31)
[2022-05-29] MEDS: INSULIN DETEMIR (LEVEMIR) 100 UNIT/ML SYR SQ SCH ×2 (06:33→17:19)
[2022-05-29] MEDS: INSULIN ASPART (NovoLOG) 100 UNIT/ML VIAL SQ SCH ×3 (06:33→17:20)
[2022-05-29 06:50] LABS: Glucose,Whole Blood 55 mg/dL (70-110)
[2022-05-29] MEDS: IPRATROPIUM-ALBUTEROL 3 ML NEB INHALATION SCH ×3 (07:01→16:19)
[2022-05-29 07:07] LABS: Glucose,Whole Blood 60 mg/dL (70-110)
[2022-05-29 07:23] LABS: Glucose,Whole Blood 77 mg/dL (70-110)
[2022-05-29] MEDS: FAMOTIDINE 20 MG TAB PO SCH (09:26)
[2022-05-29] MEDS: METOPROLOL SUCCINATE (ER) 50 MG TAB.ER.24H PO SCH (09:26)
[2022-05-29] MEDS: VIT A,C & E-LUTEIN-MINERALS 1 EACH TAB PO SCH (09:26)
[2022-05-29] MEDS: SODIUM BICARBONATE TAB 650 MG TAB PO SCH (09:26)
[2022-05-29] MEDS: CALCIUM CARBONATE 500 MG CHEWABLE PO SCH (09:26)
[2022-05-29] MEDS: TAMSULOSIN 0.4 MG CAP.ER.24H PO SCH (09:26)
[2022-05-29] MEDS: MAGNESIUM OXIDE 400 MG TAB PO SCH (09:26)
[2022-05-29] MEDS: PANTOPRAZOLE 40 MG/10 ML VIAL IVP SCH (09:26)
[2022-05-29 11:47] LABS: Glucose,Whole Blood 173 mg/dL (70-110)
--- NOTE | 2022-05-29 14:03 | P.DS ---
Providers Date of admission: 05/23/22 19:00 Expected date of discharge: 05/29/22 Attending physician: Jb Smith MD Consults: 05/23/22 18:58 Consult Physician Routine Consulting Provider: Katlyn Cardenas Consult Reason/Comments: GI bleed Do you want consulting provider notified?: Already Contacted Consult Physician Routine Consulting Provider: Rodrick Willoughby Consult Reason/Comments: hematuria, pulled mcgarry catheter Do you want consulting provider notified?: Already Contacted 05/25/22 03:13 Consult Physician Routine Consulting Provider: Abelardo Bearden Consult Reason/Comments: ckd, hematuria Do you want consulting provider notified?: Yes, Notify in am 05/26/22 14:27 Consult Physician Urgent Consulting Provider: Susanne Castillo Consult Reason/Comments: MRSA in the urine Do you want consulting provider notified?: Yes Primary care physician: Samuel Venegas [facility] Course: Final diagnosis Hematuria most likely secondary to trauma from insertion of indwelling Mcgarry catheter on recent previous admission History of recent admission with hematuria and acute kidney injury Acute on chronic hypoxic respiratory failure secondary to COPD, chronically wears 2-3 L outpatient Chronic anemia most likely due to chronic kidney disease MRSA in the urine Leukocytosis, most likely reactive from steroids, improved Diabetes mellitus, uncontrolled, insulin-dependent with hyperglycemia Lactic acidosis secondary to dehydration Possible acute GI bleed, although suspicion is low Recent hospitalization for RSV Atrial flutter History of AICD placement GI prophylaxis DVT prophylaxis, SCDs, anticoagulation on hold due to hematuria No code Discharge disposition Patient is being discharged in a stable condition with guarded prognosis to [facility] . Patient will follow-up with Dr. Samuel Venegas in the outpatient setting upon discharge. Patient is to follow-up with nephrology and urology outpatient in the next 1-2 weeks as scheduled. Patient will continue on IV daptomycin every 48 hours for 2 weeks to complete the course. Total time taken is greater than 35 minutes. Hospital course This is a 81-year-old male who was recently admitted with extensive hematuria had indwelling Mcgarry catheter placed for retention came was evaluated by urology recommending trial voiding and removing the Mcgarry. All anticoagulations have been on hold due to bleeding with concerns for possible GI bleed. Patient has had no GI bleeding although did have drops in hemoglobin and does have history of chronic anemia and chronic kidney disease. Recommend close outpatient f ollow-up with urology, nephrology and cardiology in the outpatient setting. Patient has had Mcgarry catheter removed and is voiding and urine is clear although was found to have MRSA in the urine and repeat urine culture showing staph aureus and was evaluated by infectious disease and has received a PICC line recommending IV daptomycin every 48 hours with close labs to monitor kidney functions and electrolytes for the next 2 weeks. If patient is having any further retention recommend indwelling Mcgarry catheter and urology follow-up outpatient. Patient does follow with Dr. Márquez in the outpatient setting. Patient is hemoglobin is stable with no active bleeding noted and has been cleared by consultations for discharge back to [facility]. Patient also a frail diabetic with completely uncontrolled diabetes and blood sugars ranging from hyperglycemia to hypoglycemia and have adjusted the medications recommend Accu- Cheks before meals and at bedtime and 2 AM to monitor closely. Encourage the patient continue with oral intake and recommend aspiration precautions with head of the bed elevated 30-45 monitoring and supervision with meals, thickened liquids and patient has multiple dental caries and loose teeth does well with dysphagia ground diet. Currently no reports of chest pain, shortness of breath, or palpitations. Patient is afebrile. No reports of nausea or vomiting and patient is tolerating diet. Patient will be going to [facility] today. Guarded prognosis and high risk for readmissions Physical exam: Gen: This is a 81-year-old male who is awake, alert and oriented 3, thin built, elderly appearing, pale HEENT: Head is atraumatic, normocephalic. Pupils equal, round. Sclerae is anicteric. NECK: Supple. No JVD. No lymphadenopathy. No thyromegaly. LUNGS: Diminished breath sounds bilaterally with no wheezes or rhonchi. No intercostal retractions. HEART: Regular rate and rhythm. No murmur. ABDOMEN: Soft. Thin Bowel sounds are present. No masses. No tenderness. EXTREMITIES: No pedal edema. No calf tenderness. NEUROLOGICAL: Patient is awake, alert and oriented x3. Cranial nerves 2 through 12 are 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. Diffusely weak Please refer to medication reconciliation sheet for a list of medications. The impression and plan of care has been dictated by Yaquelin Frances, Nurse Practitioner as directed. Dr. Jaime MD I have performed a history and examination and MDM of this patient, discussed the same with the dictator, and agree with the dictator's assessment and plan as written ,documented as a scribe. Based on total visit time, I have performed more than 50% of the visit. Patient Condition at Discharge: Stable Plan - Discharge Summary New Discharge Prescriptions: New glipiZIDE [Glucotrol] 2.5 mg PO DAILY tab DAPTOmycin 350 mg IV Q48H #14 each Amiodarone [Cordarone] 200 mg PO DAILY #30 tab Insulin Detemir (Levemir) [Levemir] 10 unit SQ BID@0700,1600 each Calcium Carbonate [Tums] 500 mg PO BID tab Continue Levothyroxine Sodium [Synthroid] 100 mcg PO DAILY Albuterol Nebulized [Ventolin Nebulized] 2.5 mg INHALATION RT-QID Vit C/E/Zn/Coppr/Lutein/Zeaxan [Preservision Areds 2 Softgel] 1 cap PO BID Albuterol Inhaler [Ventolin Hfa Inhaler] 2 puff INHALATION RT-QID PRN PRN Reason: Shortness Of Breath Magnesium Oxide [Mag-Ox] 400 mg PO DAILY #30 tablet Acetaminophen Tab [Tylenol] 650 mg PO Q6HR PRN tab PRN Reason: Mild Pain Or Fever > 100.5 Ipratropium-Albuterol Nebulize [Duoneb 0.5 mg-3 mg/3 ml Soln] 3 ml INHALATION RT-QID each QUEtiapine [SEROquel] 25 mg PO HS tab Tamsulosin [Flomax] 0.4 mg PO DAILY Famotidine [Pepcid] 20 mg PO DAILY Sodium Bicarbonate Tab 650 mg PO BID tab Metoprolol Succinate (ER) [Toprol XL] 150 mg PO DAILY tab Insulin Aspart [NovoLOG Flexpen] See Protocol SQ ACHS Eucerin Cream 1 applic TOPICAL BID Darbepoetin Murali [Aranesp] 40 mcg SQ FR predniSONE See Taper PO DIRECTED Glucagon [Gvoke Pfs 1-Pack Syringe] 1 mg SQ Q15M PRN PRN Reason: Hypoglycemia Discontinued glipiZIDE [Glucotrol XL] 5 mg PO DAILY Amiodarone [Cordarone] See Taper PO DIRECTED Insulin Lispro [humaLOG Kwikpen] 4 unit SQ ACHS Insulin Detemir [Levemir Flextouch Pen] 20 units SQ BID@0700,1600 Discharge Medication List Levothyroxine Sodium [Synthroid] 100 mcg PO DAILY 08/04/14 [History] Albuterol Nebulized [Ventolin Nebulized] 2.5 mg INHALATION RT-QID 11/05/16 [History] Vit C/E/Zn/Coppr/Lutein/Zeaxan [Preservision Areds 2 Softgel] 1 cap PO BID 04/22/18 [History] Albuterol Inhaler [Ventolin Hfa Inhaler] 2 puff INHALATION RT-QID PRN 07/03/20 [History] Magnesium Oxide [Mag-Ox] 400 mg PO DAILY #30 tablet 07/05/20 [Rx] Famotidine [Pepcid] 20 mg PO DAILY 09/19/20 [History] Acetaminophen Tab [Tylenol] 650 mg PO Q6HR PRN tab 07/30/21 [Rx] Ipratropium-Albuterol Nebulize [Duoneb 0.5 mg-3 mg/3 ml Soln] 3 ml INHALATION RT-QID each 05/21/22 [Rx] Metoprolol Succinate (ER) [Toprol XL] 150 mg PO DAILY tab 05/21/22 [Rx] QUEtiapine [SEROquel] 25 mg PO HS tab 05/21/22 [Rx] Sodium Bicarbonate Tab 650 mg PO BID tab 05/21/22 [Rx] Darbepoetin Murali [Aranesp] 40 mcg SQ FR 05/23/22 [History] Eucerin Cream 1 applic TOPICAL BID 05/23/22 [History] Glucagon [Gvoke Pfs 1-Pack Syringe] 1 mg SQ Q15M PRN 05/23/22 [History] Insulin Aspart [NovoLOG Flexpen] See Protocol SQ ACHS 05/23/22 [History] Tamsulosin [Flomax] 0.4 mg PO DAILY 05/23/22 [History] predniSONE See Taper PO DIRECTED 05/23/22 [History] Amiodarone [Cordarone] 200 mg PO DAILY #30 tab 05/29/22 [Rx] Calcium Carbonate [Tums] 500 mg PO BID tab 05/29/22 [Rx] DAPTOmycin 350 mg IV Q48H #14 each 05/29/22 [Rx] Insulin Detemir (Levemir) [Levemir] 10 unit SQ BID@0700,1600 each 05/29/22 [Rx] glipiZIDE [Glucotrol] 2.5 mg PO DAILY tab 05/29/22 [Rx] Follow up Appointment(s)/Referral(s): Samuel Venegas MD [Primary Care Provider] - 1-2 days Samuel Márquez MD [STAFF PHYSICIAN] - 1 Week Lesly Murry MD [STAFF PHYSICIAN] - 1 Week Ambulatory/Diagnostic Orders: Complete Blood Count w/diff [LAB.AMB] Time Frame: 3 Days, Location: None Selected Patient Instructions/Handouts: MRSA (Methicillin-Resistant Staphylococcus Aureus) (DC), Urinary Tract Infection in Men (DC), Meal Planning with Diabetes Exchanges (DC), Type 2 Diabetes in the Older Adult (DC), Type 2 Diabetes Management for Adults (DC) Activity/Diet/Wound Care/Special Instructions: Patient is going to [facility] Activity as tolerated recommend close monitoring of Accu-Cheks before meals and at bedtime and maintained on long-acting along with sliding scale although having episodes of hypoglycemia recommend monitoring as needed and titrating the doses outpatient Recommend follow-up with urology outpatient and monitor closely for any retention, may continue with bladder scan postvoid residuals and if retaining recommend indwelling Mcgarry catheter and urology follow-up outpatient Recommend consistent carb heart healthy diet Recommend outpatient follow-up with nephrology and cardiology Patient is to continue with IV daptomycin every 48 hours for the next 2 weeks Recommend close monitoring of electrolytes and kidney functions Discharge Disposition: TRANSFER TO SNF/ECF
--- NOTE | 2022-05-29 14:15 | P.PN ---
Subjective Patient is seen for follow-up for acute kidney injury and chronic kidney disease. He was admitted to the hospital with hematuria. Patient has an i ndwelling Mcgovern catheter for obstructive uropathy. Hematuria has resolved. Urine in the Mcgovern bag appears to be yellow and clear. Serum creatinine down to 2.6 mg/dL today. Overall patient is feeling better. Urine culture is growing MRSA and patient has been started on daptomycin. Status post PICC line Objective - Vital Signs Vital signs: Vital Signs Temp 97.4 F L 05/29/22 07:49 Pulse 60 05/29/22 11:00 Resp 17 05/29/22 07:49 BP 141/59 05/29/22 07:49 Pulse Ox 98 05/29/22 07:49 FiO2 2 05/24/22 07:56 Intake & Output 05/28/22 05/29/22 05/29/22 18:59 06:59 18:59 Intake Total 50 Output Total 1300 Balance -1300 50 Intake: Intake, IV Titration 50 Amount DAPTOmycin 350 mg In 50 Sodium Chloride 0.9% 50 ml @ 100 mls/hr IVPB Q48H [facility] Rx#:[id number] Output: Urine 1300 Other: Voiding Method External Catheter External Catheter External Catheter # Voids 5 - Exam Awake, comfortable, no acute distress Examination of the heart S1 and S2 Examination lungs bilateral breath sounds are heard Abdomen is soft nontender Examination lower extremity shows chronic skin changes no significant edema noted bilaterally [employer] exam 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 - Labs CBC & Chem 7: 05/28/22 04:50 05/28/22 04:50 Labs: Abnormal Lab Results - Last 24 Hours (Table) 05/28/22 05/28/22 05/29/22 Range/Units 16:44 19:16 06:11 POC Glucose (mg/dL) 239 H 248 H 67 L (70-110) mg/dL 05/29/22 05/29/22 05/29/22 Range/Units 06:49 07:05 11:46 POC Glucose (mg/dL) 55 L 60 L 173 H (70-110) mg/dL Microbiology - Last 24 Hours (Table) 05/26/22 15:21 Urine Culture - Final Urine,Voided Staphylococcus aureus 05/26/22 15:47 Blood Culture - Preliminary Blood No Growth after 48 hours Assessment and Plan Assessment: 1. Acute kidney injury, ATN and obstructive uropathy from last admission currently improving. Serum creatinine had peaked at about 3.2 mg/dL during his last admission. Ultrasound showed bilateral moderate hydronephrosis. Mcgovern catheter was placed last admission. Creatinine down to 2.4 today 2. 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 Hematuria, mostly traumatic 4. Anemia associated with significant hematuria, status post packed RBCs transfusion. 5. History of GI bleed with stool for occult blood positive this admission 6. Anemia of chronic disease maintained on Aranesp. Iron deficiency noted maintained on IV iron 7. MRSA UTI maintained on daptomycin Plan: . Continue with Mcgovern catheter IV antibiotics as per ID Continue with Aranesp
--- NOTE | 2022-05-29 14:22 | P.PN ---
Subjective Progress Note Date: 05/29/22 Principal diagnosis: MRSA complicated urinary tract infection Patient is a 81-year-old male with a past medical history significant for coronary disease diabetes mellitus hypertension hyperlipidemia also with a previous history of TURP recent urine retention and gross hematuria requiring Mcgovern catheter placement, presented to hospital with hematuria patient did have significant positive UA with urine culture growing MRSA. on today's evaluation is 05/29/2022, the patient remains to be afebrile, the patient is breathing comfortably on nasal cannula oxygen, the patient denies any chest pain shortness of breath or cough , the patient denies nausea no vomiting no abdominal pain or diarrhea, patient is feeling better Objective - Vital Signs Vital signs: Vital Signs Temp 97.4 F L 05/29/22 07:49 Pulse 60 05/29/22 11:00 Resp 17 05/29/22 07:49 BP 141/59 05/29/22 07:49 Pulse Ox 98 05/29/22 07:49 FiO2 2 05/24/22 07:56 Intake & Output 05/28/22 05/29/22 05/29/22 18:59 06:59 18:59 Intake Total 50 Output Total 1300 Balance -1300 50 Intake: Intake, IV Titration 50 Amount DAPTOmycin 350 mg In 50 Sodium Chloride 0.9% 50 ml @ 100 mls/hr IVPB Q48H [facility] Rx#:[id number] Output: Urine 1300 Other: Voiding Method External Catheter External Catheter External Catheter # Voids 5 - Exam GENERAL DESCRIPTION: An elderly male lying in bed in no distress RESPIRATORY SYSTEM: Unlabored breathing , decreased breath sounds at bases HEART: S1 S2 regular rate and rhythm , ABDOMEN: Soft , no tenderness EXTREMITIES: No edema feet - Labs CBC & Chem 7: 05/28/22 04:50 05/28/22 04:50 Labs: Abnormal Lab Results - Last 24 Hours (Table) 05/28/22 05/28/22 05/29/22 Range/Units 16:44 19:16 06:11 POC Glucose (mg/dL) 239 H 248 H 67 L (70-110) mg/dL 05/29/22 05/29/22 05/29/22 Range/Units 06:49 07:05 11:46 POC Glucose (mg/dL) 55 L 60 L 173 H (70-110) mg/dL Microbiology - Last 24 Hours (Table) 05/26/22 15:21 Urine Culture - Final Urine,Voided Staphylococcus aureus 05/26/22 15:47 Blood Culture - Preliminary Blood No Growth after 48 hours Assessment and Plan (1) Urinary tract infection Current Visit: Yes Status: Acute Code(s): N39.0 - URINARY TRACT INFECTION, SITE NOT SPECIFIED SNOMED Code(s): 39431556 Plan: 1patient with a positive urine culture with MRSA in this patient who do have a history of TURP urine retention requiring Mcgovren catheter placement and recent hematuria concerning for possible catheter associated UTI. 2 blood culture has been obtained and has been negative so far 3patient did have ultrasound of the kidney bladder area on 05/13/2022 mentioning moderate hydronephrosis, repeat ultrasound did mention slight improvement of the hydronephrosis 4patient to continue with daptomycin 4 mg/kg every 48 hour dosing has been adju sted to the kidney function, plan is for a two-week course of antibiotic and close outpatient follow-up Time with Patient: Less than 30
[2022-05-29 15:48] VITALS: BP 115/56; RESP 20; TEMP 98.8
[2022-05-29 16:24] LABS: Glucose,Whole Blood 185 mg/dL (70-110)
[2022-05-29 16:30] VITALS: PULSE 64
== END 2022-05-29 18:10 | DRG 949 ==
LOC: EC 14:17 → 3SCARD 19:00 → 4SSUR 05-24 10:49
PROVIDERS: ADMIT Internal Medicine; ATTEND Internal Medicine
PROC: 02HV33Z Insertion of Infusion Device into Superior Vena Cava, Percutaneous Approach (ICD-10-PCS; principal; 2022-05-28 10:30)
DX: T83.83XD Hemorrhage due to genitourinary prosthetic devices, implants and grafts, subsequent encounter (principal); N17.0 Acute kidney failure with tubular necrosis; D62 Acute posthemorrhagic anemia; I48.92 Unspecified atrial flutter; E87.20 Acidosis, unspecified; K92.1 Melena; N02.9 Recurrent and persistent hematuria with unspecified morphologic changes; N13.6 Pyonephrosis; D63.1 Anemia in chronic kidney disease; Z86.19 Personal history of other infectious and parasitic diseases; D69.6 Thrombocytopenia, unspecified; E03.9 Hypothyroidism, unspecified; E11.22 Type 2 diabetes mellitus with diabetic chronic kidney disease; E11.649 Type 2 diabetes mellitus with hypoglycemia without coma; E11.65 Type 2 diabetes mellitus with hyperglycemia; E78.5 Hyperlipidemia, unspecified; E86.0 Dehydration; Z66 Do not resuscitate; Z87.891 Personal history of nicotine dependence; L89.301 Pressure ulcer of unspecified buttock, stage 1; B95.62 Methicillin resistant Staphylococcus aureus infection as the cause of diseases classified elsewhere; N13.9 Obstructive and reflux uropathy, unspecified; I25.10 Atherosclerotic heart disease of native coronary artery without angina pectoris; Z99.81 Dependence on supplemental oxygen; J44.9 Chronic obstructive pulmonary disease, unspecified; K02.9 Dental caries, unspecified; K52.9 Noninfective gastroenteritis and colitis, unspecified; Z87.19 Personal history of other diseases of the digestive system; Z95.810 Presence of automatic (implantable) cardiac defibrillator; Z28.310 Unvaccinated for COVID-19; Z85.72 Personal history of non-Hodgkin lymphomas; Z92.3 Personal history of irradiation; Z92.21 Personal history of antineoplastic chemotherapy; N18.9 Chronic kidney disease, unspecified; Y84.6 Urinary catheterization as the cause of abnormal reaction of the patient, or of later complication, without mention of misadventure at the time of the procedure; Z79.02 Long term (current) use of antithrombotics/antiplatelets; Z79.2 Long term (current) use of antibiotics; Z79.4 Long term (current) use of insulin; Z79.84 Long term (current) use of oral hypoglycemic drugs; Z79.890 Hormone replacement therapy; Z79.899 Other long term (current) drug therapy; Z82.49 Family history of ischemic heart disease and other diseases of the circulatory system; Z90.79 Acquired absence of other genital organ(s); Z95.1 Presence of aortocoronary bypass graft; Z87.440 Personal history of urinary (tract) infections
CPT/HCPCS: 36415; 36430; 36573; 71045; 76770; 80048; 80053; 81001; 82272; 83540; 83550; 83605; 83690; 83735; 85025; 85610; 85730; 86850; 86900; 86901; 86920; 87040; 87077; 87086; 87186; 93005; 94640; 94760; 96361; 96372; 96374; 96376; 99285

== ENCOUNTER → 2022-09-09 | Outpatient (CLI) | payer MEDICARE, OTHER ==
[2022-09-09 16:10] LABS: HCT 29.2 % (39.6-50.0); HGB 9.1 g/dL (13.0-17.0); MCH 29.2 pg (27.0-32.0); MCHC 31.2 g/dL (32.0-37.0); MCV 93.6 fL (80.0-97.0); Mean Platelet Volume 9.6 fL (9.5-12.2); NRBC Per 100 WBC 0 /100 WBCS (0.0-0.0); Platelet Count 149 X 10*3/uL (140-440); RBC 3.12 X 10*6/uL (4.40-5.60); RDW 13.4 % (11.5-14.5)
[2022-09-09 22:44] LABS: % Iron Saturation 10.56 (15.00-50.00); African American GFR (CKD) 22.1 (60.0-200.0); Anion Gap 13.1 mmol/L (10.00-18.00); BUN/Creat Ratio 12.48 Ratio (12.00-20.00); Blood Urea Nitrogen 36.7 mg/dL (9.0-27.0); Calcium 8.7 mg/dL (8.7-10.3); Carbon Dioxide 13.3 mmol/L (20.0-27.5); Magnesium 2.1 mg/dL (1.5-2.4); Non-African American GFR(CKD) 19.1 (60.0-200.0); Phosphorus 2.8 mg/dL (2.4-5.1); Potassium 3.7 mmol/L (3.5-5.5)
== END | disposition home or self-care (01) ==
LOC: LABWHC1 11:52
PROVIDERS: ATTEND Nurse Practitioner Family
DX: N25.81 Secondary hyperparathyroidism of renal origin (principal); N17.9 Acute kidney failure, unspecified; D64.9 Anemia, unspecified; E55.9 Vitamin D deficiency, unspecified; N39.0 Urinary tract infection, site not specified
CPT/HCPCS: 36415; 80048; 82306; 82728; 83540; 83550; 83735; 83970; 84100; 85027